=== PATIENT | female | born 1960 | race Caucasian/White ===

== ENCOUNTER 2016-10-26 19:04 | Emergency (ER) | payer MEDICARE, OTHER ==
[~2016-10-26] VITALS: Ht 152.4 cm; Wt 86.6 kg
[~2016-10-26 19:04] MED LIST: ACET325T9 PO; ALBU2.5V5 NEB; ATOR10TA60 PO; BENZ1TAB5 PO; BENZ2AMP4 IJ; BUSP7.5T PO; BUTO10SP NS; BUTORPHANOL NAS; BYSTOLIC5 MG PO; Benztropine Mesylate PO; CHLO15MO2 PO; CIPR500T94 PO; DICL100G7 TP; DIVA250T PO; DIVA500T17 PO; DIVA500T4 PO; ENOX100D SQ; Enoxaparin Sodium SQ; FLUO10CA13 PO; FLUO20CA16 PO; FLUO20CA8 PO; FLUT16SP NS; FLUT9.9S NS; FURO40TA4 PO; GUAI600T38 PO; HYDR-2678 PO; IPRA4AER IH; LIDO700A4 TP; LISI-334 PO; LISI10TA2 PO; LORA0.5T PO; MAG355OR11 PO; METH5TAB12 PO; METH5TAB4 PO; METO25TA4 PO; METO25TA9 PO; METO50TA2 PO; METR250T PO; METR500T PO; NITR0.4T SL; NYST15CR2 TP; OLAN10TA3 PO; OLAN10TA9 PO; OLAN15TA3 PO; OLAN15TA7 PO; OLAN5TAB3 PO; OLAN5TAB9 PO; OMEP40CA2 PO; OMEP40CA5 PO; PANT40TA3 PO; PANT40TA5 PO; POTA10CA PO; POTA20TA4 PO; POTA20TA82 PO; PREG50CA PO; PROC25SU21 RC; QUET50TA5 PO; SODI104S NS; TIOT18CA IH; TRAM50TA PO; TRAZ50TA15 PO; WARF4TAB7 PO; WARF5TAB PO; WARF5TAB7 PO; WARF7.5T6 PO; ZOLP10TA4 PO; ZOLP5TAB PO; ZOLP5TAB4 PO; fluoxetine; triamcinolone cream
[2016-10-26 20:04] LABS: BASO # 0.1 x10^3/uL (0.0-0.2); BASO % 1 % (0-3); EOS % 1 % (0-3); HEMATOCRIT 40.3 % (36.0-47.0); HEMOGLOBIN 13.4 g/dL (12.0-15.5); LYMPH # 2.4 x10^3/uL (1.0-4.8); LYMPH % 29 % (24-48); MEAN CORPUSCULAR HEMOGLOBIN 29 pg (25-35); MEAN CORPUSCULAR HGB CONC 33 g/dL (31-37); MEAN CORPUSCULAR VOLUME 86 fL (79-100); MONO % 9 % (0-9); NEUT % 60 % (31-73); PLATELET COUNT 162 x10^3/uL (140-400); RED CELL DISTRIBUTION WIDTH 14.8 % (11.5-14.5); WHITE BLOOD COUNT 8.2 x10^3/uL (4.0-11.0)
[2016-10-26 20:14] LABS: CALCIUM 8.3 mg/dL (8.5-10.1); CREATININE 0.9 mg/dL (0.6-1.0); GFR 64.8; INR 2.3 (0.8-1.1); POTASSIUM 3.7 mmol/L (3.5-5.1); PROTHROMBIN TIME PATIENT 23.6 SEC (11.7-14.0)
[2016-10-26 20:19] VITALS: BP 102/58
[2016-10-26 20:22] LABS: BARBITURATES NEG (NEG); BENZODIAZEPINES NEG (NEG); CANNABINOIDS NEG (NEG); COCAINE NEG (NEG); METHADONE NEG (NEG); OPIATES NEG (NEG); PHENCYCLIDINE NEG (NEG)
[2016-10-26 20:23] LABS: ETHANOL, URINE NEG (NEG)
--- NOTE | 2016-10-26 20:36 | PHYS DOC ---
Past Medical History Past Medical History: A-Fib, Anxiety, Bipolar, Hypertension, [place], Schizophrenia , Other Additional Past Medical Histor: HALLUCINATIONS, AORTIC VALVE DISORDERS, mi 1996 , kidney problems Past Surgical History: Cholecystectomy, Other Additional Past Surgical Histo: HERNIA REPAIR, AORTIC VALVE REPLACEMENT Alcohol Use: Rarely Drug Use: None Adult General Chief Complaint Chief Complaint: CHEST PAIN [facility] HPI Patient is a 56 year old female who presents with for evaluation of chest pain that started around 11:30 this morning. Pain started at rest. She has pain that is sharp, stabbing sensation about her pacemaker in her left upper chest. She states her chest wall is tender to touch. She does note also having a brief episode of left-sided numb sensation this morning; this Is currently resolved. She denies rash or discoloration. She denies cough, fever or chills, diaphoresis, dyspnea, leg pain or swelling, hemoptysis, nausea or vomiting, lightheadedness, exertional symptoms, abdominal pain, diarrhea. She denies headache, vision changes, dizziness, tingling, weakness. Review of Systems Review of Systems Constitutional: Denies fever or chills [] Eyes: Denies change in visual acuity, redness, or eye pain [] HENT: Denies nasal congestion or sore throat [] Respiratory: Denies cough or shortness of breath [] Cardiovascular: No additional information not addressed in HPI [] GI: Denies abdominal pain, nausea, vomiting, bloody stools or diarrhea [] : Denies dysuria or hematuria [] Musculoskeletal: Denies back pain or joint pain [] Integument: Denies rash or skin lesions [] Neurologic: Denies headache, focal weakness or sensory changes [] Endocrine: Denies polyuria or polydipsia [] Current Medications Current Medications Current Medications Medications (Trade) Dose Ordered Sig/Galilea Start Time Stop Time Status Last Admin Dose Admin Acetaminophen (Tylenol) 500 mg 1X ONCE 10/26/16 20:45 10/26/16 20:46 DC 10/26/16 20:40 500 MG Allergies Allergies Allergies Coded Allergies Type Severity Reaction Last Updated Verified Sulfa (Sulfonamide Antibiotics) Allergy Severe rash, tongue swelling 04/15/15 Yes Iodinated Contrast Media - IV Dye Allergy Intermediate rash 04/15/15 Yes Penicillins Allergy Intermediate Hives 04/15/15 Yes aspirin Allergy Intermediate Hives 04/15/15 Yes codeine Allergy Intermediate Hives; SEE COMMENT 06/08/15 Yes diphenhydramine HCl Allergy Intermediate rash 12/19/13 Yes latex Allergy Intermediate Rash 12/18/13 Yes Physical Exam Physical Exam Constitutional: Well developed, well nourished, no acute distress, non-toxic appearance. [] HENT: Normocephalic, atraumatic, bilateral external ears normal, oropharynx moist, no oral exudates, nose normal. [] Eyes: PERRLA, EOMI. [] Neck: Normal range of motion, supple. [] Cardiovascular:Heart rate regular rhythm [] Lungs & Thorax: Bilateral breath sounds clear to auscultation. Tenderness about anterior chest wall duplicating symptoms, worse about pacemaker in left upper chest, no discoloration or rash noted, no visual or palpable abnormality [ ] Abdomen: Bowel sounds normal, soft, no tenderness. [] Skin: Warm, dry, no erythema, no rash. [] Back: No tenderness, no CVA tenderness. [] Extremities: ROM intact, no edema. [] Neurologic: Alert and oriented X 3, normal motor function, normal sensory function, no focal deficits noted, cranial nerves II through XII intact. [] Psychologic: Affect normal, judgement normal, mood normal. [] Current Patient Data Vital Signs Vital Signs Date Time Temp Pulse Resp B/P Pulse Ox O2 Delivery O2 Flow Rate FiO2 10/26/16 20:19 68 16 102/58 96 Room Air 10/26/16 19:30 98.5 98.5 Lab Values Laboratory Tests Test 10/26/16 19:16 10/26/16 20:10 White Blood Count 8.2x10^3/uL (4.0-11.0) Red Blood Count 4.70x10^6/uL (3.50-5.40) Hemoglobin 13.4g/dL (12.0-15.5) Hematocrit 40.3% (36.0-47.0) Mean Corpuscular Volume 86fL (79-100) Mean Corpuscular Hemoglobin 29pg (25-35) Mean Corpuscular Hemoglobin Concent 33g/dL (31-37) Red Cell Distribution Width 14.8% (11.5-14.5) H Platelet Count 162x10^3/uL (140-400) Neutrophils (%) (Auto) 60% (31-73) Lymphocytes (%) (Auto) 29% (24-48) Monocytes (%) (Auto) 9% (0-9) Eosinophils (%) (Auto) 1% (0-3) Basophils (%) (Auto) 1% (0-3) Neutrophils # (Auto) 4.9x10^3uL (1.8-7.7) Lymphocytes # (Auto) 2.4x10^3/uL (1.0-4.8) Monocytes # (Auto) 0.7x10^3/uL (0.0-1.1) Eosinophils # (Auto) 0.1x10^3/uL (0.0-0.7) Basophils # (Auto) 0.1x10^3/uL (0.0-0.2) Prothrombin Time 23.6SEC (11.7-14.0) H Prothrombin Time INR 2.3 (0.8-1.1) H Sodium Level 143mmol/L (136-145) Potassium Level 3.7mmol/L (3.5-5.1) Chloride Level 103mmol/L (98-107) Carbon Dioxide Level 34mmol/L (21-32) H Anion Gap 6 (6-14) Blood Urea Nitrogen 16mg/dL (7-20) Creatinine 0.9mg/dL (0.6-1.0) Estimated GFR (Cockcroft-Gault) 64.8 Glucose Level 109mg/dL (70-99) H Calcium Level 8.3mg/dL (8.5-10.1) L Troponin I Quantitative < 0.017ng/mL (0.000-0.055) NB-Ebm-[id number]-Type Natriuretic Peptide 149pg/mL (0-124) H Urine Opiates Screen Neg (NEG) Urine Methadone Screen Neg (NEG) Urine Barbiturates Neg (NEG) Urine Phencyclidine Screen Neg (NEG) Urine Amphetamine/Methamphetamine Neg (NEG) Urine Benzodiazepines Screen Neg (NEG) Urine Cocaine Screen Neg (NEG) Urine Cannabinoids Screen Neg (NEG) Urine Ethyl Alcohol Neg (NEG) Laboratory Tests 10/26/16 19:16 Laboratory Tests 10/26/16 19:16 EKG EKG EKG as interpreted by me as normal sinus rhythm, rate 87, no ST-T changes compared to prior, no ectopy Radiology/Procedures Radiology/Procedures Chest xray as interpreted by me with no acute cardiopulmonary disease process Course & Med Decision Making Course & Med Decision Making Pertinent Labs and Imaging studies reviewed. (See chart for details) Workup is unremarkable. She continues to have no further neurologic symptoms. Encouraged her to follow-up with her primary care doctor and charity fundraiser. Return precautions given. She and understand and agree with plan. Dragon Disclaimer Dragon Disclaimer This electronic medical record was generated, in whole or in part, using a voice recognition dictation system. Departure Departure Impression: Primary Impression: Chest pain Disposition: HOME, SELF-CARE Condition: STABLE Referrals: RUBIO CASTELLANOS (PCP) Patient Instructions: Chest Pain (Nonspecific), [id number] Additional Instructions: Take tylenol as needed for pain. Follow up with your primary care doctor and charity fundraiser. Return for any concerns. Problem Qualifiers Primary Impression: Chest pain Chest pain type: other chest pain Qualified Code: R07.89 - Other chest pain Tyree PITTS MD Oct 26, 2016 20:36
[2016-10-26] MEDS ORDERED: ACETAMINOPHEN 500 MG TABLET PO ONE (20:45)
--- NOTE | 2016-10-27 06:41 | EKG ---
[facility] [address] [place] [address] Test Date: 2016-10-26 Test Time: 19:12:43 Pat Name: RHETT HERNANDEZ Department: Room: Gender: F Foundation Relations Manager: : 1960 Requested By: Tyree PITTS Order Number: [id number] Reading MD: Measurements Intervals [place] Rate: 87 P: MD: QRS: 10 QRSD: 78 T: 86 QT: 372 QTc: 454 Interpretive Statements IRREGULAR RHYTHM, NO P-WAVE FOUND ST & T ABNORMALITY, CONSIDER ANTERIOR ISCHEMIA OR LEFT VENTRICULAR STRAIN T ABNORMALITY IN LATERAL LEADS ABNORMAL ECG RI6.01 No previous ECG available for comparison
--- NOTE | 2016-10-27 08:19 | RAD ---
Chest, 2 views, 10/26/2016: History: Chest pain, asthma Comparison is made to a study from 08/10/2016. There has been a previous median sternotomy. A left-sided transvenous pacemaker remains in place with 2 leads extending into the right heart. The heart is mildly enlarged. There is mild tortuosity of the thoracic aorta. The pulmonary vascularity is normal. Granulomatous calcifications are present in the left chest. No pulmonary infiltrates are seen. There is no evidence of pleural fluid. Scattered spurs are present in the spine. Two lower thoracic vertebral compression fractures are unchanged since 08/17/2014. IMPRESSION: 1. Mild cardiomegaly. 2. No acute abnormality is detected.
== END 2016-10-26 20:54 | disposition home or self-care (01) ==
LOC: ER 19:06
DX: R07.89 Other chest pain (principal); I10 Essential (primary) hypertension; I48.91 Unspecified atrial fibrillation; Z88.0 Allergy status to penicillin; Z88.8 Allergy status to other drugs, medicaments and biological substances; Z91.041 Radiographic dye allergy status; Z91.040 Latex allergy status; Z88.2 Allergy status to sulfonamides; Z88.5 Allergy status to narcotic agent
CPT/HCPCS: 36415; 71020; 80048; 83880; 84484; 85027; 85610; 93005; 99285; G0481

== ENCOUNTER 2017-02-20 17:28 | Inpatient (IN) | payer MEDICARE, OTHER ==
[~2017-02-20] VITALS: Ht 152.4 cm; Wt 94.1 kg
[~2017-02-20 17:28] MED LIST changes: +DICL100G18 TP; -DICL100G7 TP; -GUAI600T38 PO; +GUAI600T47 PO; -POTA10CA PO; +POTASSIUM CHLO10 MEQ PO; +WARF-78 PO; -WARF5TAB PO; -ZOLP5TAB4 PO; +ZOLP5TAB5 PO
--- NOTE | 2017-02-20 18:10 | PHYS DOC ---
Past Medical History Past Medical History: A-Fib, Anxiety, Bipolar, Hypertension, [place], Schizophrenia , Other Additional Past Medical Histor: HALLUCINATIONS, AORTIC VALVE DISORDERS, mi 1996 , kidney problems Past Surgical History: Cholecystectomy, Other Additional Past Surgical Histo: HERNIA REPAIR, AORTIC VALVE REPLACEMENT Alcohol Use: Rarely Drug Use: None Adult General Chief Complaint Chief Complaint: CHEST PAIN HPI HPI Patient is a 56 year old female who presents with for intermittent chest pain that started yesterday around 6 PM. States she has episodes lasting approximately 10 minutes, occurring frequently, has been constant over the last hour but was prior intermittent. It is sharp, left-sided, radiates to left arm. He has slight bilateral acute lower extremity edema over the past few days. Denies dyspnea, lightheadedness, nausea or vomiting, fever or chills, palpitations, diaphoresis, orthopnea, back pain, leg pain, hemoptysis, cough. Denies ICD fire. Review of Systems Review of Systems Constitutional: Denies fever or chills [] Eyes: Denies change in visual acuity, redness, or eye pain [] HENT: Denies nasal congestion or sore throat [] Respiratory: Denies cough or shortness of breath [] Cardiovascular: No additional information not addressed in HPI [] GI: Denies abdominal pain, nausea, vomiting, bloody stools or diarrhea [] : Denies dysuria or hematuria [] Musculoskeletal: Denies back pain or joint pain [] Integument: Denies rash or skin lesions [] Neurologic: Denies headache, focal weakness or sensory changes [] Endocrine: Denies polyuria or polydipsia [] Current Medications Current Medications Current Medications Medications (Trade) Dose Ordered Sig/Galilea Start Time Stop Time Status Last Admin Dose Admin Fentanyl Citrate (Fentanyl 2ml Vial) 50 mcg PRN Q15MIN PRN 02/20/17 18:15 02/20/17 21:00 02/20/17 18:41 50 MCG Allergies Allergies Allergies Coded Allergies Type Severity Reaction Last Updated Verified Sulfa (Sulfonamide Antibiotics) Allergy Severe rash, tongue swelling 04/15/15 Yes Iodinated Contrast- Oral and IV Dye Allergy Intermediate rash 04/15/15 Yes Penicillins Allergy Intermediate Hives 04/15/15 Yes aspirin Allergy Intermediate Hives 04/15/15 Yes codeine Allergy Intermediate Hives; SEE COMMENT 06/08/15 Yes diphenhydramine HCl Allergy Intermediate rash 12/19/13 Yes latex Allergy Intermediate Rash 12/18/13 Yes Physical Exam Physical Exam Constitutional: Well developed, well nourished, no acute distress, non-toxic appearance. [] HENT: Normocephalic, atraumatic, bilateral external ears normal, oropharynx moist, nose normal. [] Eyes: PERRLA, EOMI. [] Neck: Normal range of motion, supple. [] Cardiovascular:Heart rate regular rhythm [] Lungs & Thorax: Bilateral breath sounds clear to auscultation. No chest wall tenderness [] Abdomen: Bowel sounds normal, soft, no tenderness. [] Skin: Warm, dry, no erythema, no rash. [] Back: No tenderness, no CVA tenderness. [] Extremities: No tenderness, ROM intact, no edema. [] Neurologic: Alert and oriented X 3, normal motor function, normal sensory function, no focal deficits noted. [] Psychologic: Affect normal, judgement normal, mood normal. [] Current Patient Data Vital Signs Vital Signs Date Time Temp Pulse Resp B/P (MAP) Pulse Ox O2 Delivery O2 Flow Rate FiO2 02/20/17 19:00 60 19 158/75 (102) 95 Nasal Cannula 02/20/17 17:46 98.4 98.4 Lab Values Laboratory Tests Test 02/20/17 17:50 White Blood Count 7.9 x10^3/uL (4.0-11.0) Red Blood Count 5.07 x10^6/uL (3.50-5.40) Hemoglobin 14.6 g/dL (12.0-15.5) Hematocrit 43.2 % (36.0-47.0) Mean Corpuscular Volume 85 fL (79-100) Mean Corpuscular Hemoglobin 29 pg (25-35) Mean Corpuscular Hemoglobin Concent 34 g/dL (31-37) Red Cell Distribution Width 14.0 % (11.5-14.5) Platelet Count 179 x10^3/uL (140-400) Neutrophils (%) (Auto) 63 % (31-73) Lymphocytes (%) (Auto) 27 % (24-48) Monocytes (%) (Auto) 8 % (0-9) Eosinophils (%) (Auto) 2 % (0-3) Basophils (%) (Auto) 1 % (0-3) Neutrophils # (Auto) 4.9 x10^3uL (1.8-7.7) Lymphocytes # (Auto) 2.1 x10^3/uL (1.0-4.8) Monocytes # (Auto) 0.7 x10^3/uL (0.0-1.1) Eosinophils # (Auto) 0.1 x10^3/uL (0.0-0.7) Basophils # (Auto) 0.0 x10^3/uL (0.0-0.2) Prothrombin Time 15.8 SEC (11.7-14.0) H Prothrombin Time INR 1.3 (0.8-1.1) H PTT 28 SEC (24-38) Sodium Level 142 mmol/L (136-145) Potassium Level 3.8 mmol/L (3.5-5.1) Chloride Level 102 mmol/L (98-107) Carbon Dioxide Level 33 mmol/L (21-32) H Anion Gap 7 (6-14) Blood Urea Nitrogen 19 mg/dL (7-20) Creatinine 0.8 mg/dL (0.6-1.0) Estimated GFR (Cockcroft-Gault) 74.2 Glucose Level 104 mg/dL (70-99) H Calcium Level 9.2 mg/dL (8.5-10.1) Magnesium Level 1.8 mg/dL (1.8-2.4) Troponin I Quantitative < 0.017 ng/mL (0.000-0.055) DL-Xlj-[id number]-Type Natriuretic Peptide 591 pg/mL (0-124) H Laboratory Tests 02/20/17 17:50 Laboratory Tests 02/20/17 17:50 EKG EKG EKG as interpreted by me as normal sinus rhythm, rate 66, no ST-T changes, normal intervals, no ectopy Radiology/Procedures Radiology/Procedures Chest xray as interpreted by me with no acute cardiopulmonary disease process Course & Med Decision Making Course & Med Decision Making Pertinent Labs and Imaging studies reviewed. (See chart for details) Workup is largely unremarkable other than subtherapeutic INR. Discussed case with Dr. Hall, on-call for Dr. Castellanos, who will admit to Dr. Hudson. Cardiology consult placed. Augustin Disclaimer Dragon Disclaimer This electronic medical record was generated, in whole or in part, using a voice recognition dictation system. Departure Departure Impression: Primary Impression: Chest pain Additional Impression: Subtherapeutic international normalized ratio (INR) Disposition: 09 ADMITTED INPATIENT Condition: STABLE Referrals: RUBIO CASTELLANOS (PCP) Problem Qualifiers Primary Impression: Chest pain Chest pain type: unspecified Qualified Codes: R07.9 - Chest pain, unspecified Tyree PITTS MD Feb 20, 2017 18:10
[2017-02-20 18:13] LABS: BASO % 1 % (0-3); EOS % 2 % (0-3); HEMATOCRIT 43.2 % (36.0-47.0); HEMOGLOBIN 14.6 g/dL (12.0-15.5); LYMPH # 2.1 x10^3/uL (1.0-4.8); LYMPH % 27 % (24-48); MEAN CORPUSCULAR HEMOGLOBIN 29 pg (25-35); MEAN CORPUSCULAR HGB CONC 34 g/dL (31-37); MEAN CORPUSCULAR VOLUME 85 fL (79-100); MONO % 8 % (0-9); NEUT % 63 % (31-73); PLATELET COUNT 179 x10^3/uL (140-400); RED BLOOD COUNT 5.07 x10^6/uL (3.50-5.40); WHITE BLOOD COUNT 7.9 x10^3/uL (4.0-11.0)
[2017-02-20] MEDS ORDERED: fentaNYL PF VIAL 100 MCG/2 ML VIAL IV PRN ×2 (18:15→19:45)
[2017-02-20 18:24] LABS: INR 1.3 (0.8-1.1); PROTHROMBIN TIME PATIENT 15.8 SEC (11.7-14.0)
[2017-02-20 18:26] LABS: CALCIUM 9.2 mg/dL (8.5-10.1); CREATININE 0.8 mg/dL (0.6-1.0); GFR 74.2; POTASSIUM 3.8 mmol/L (3.5-5.1)
[2017-02-20 18:27] LABS: MAGNESIUM 1.8 mg/dL (1.8-2.4)
[2017-02-20] MEDS ORDERED: ACETAMINOPHEN 325 MG TABLET. PO PRN (19:45)
[2017-02-20] MEDS ORDERED: NITROGLYCERIN SUBLINGUAL 0.4 MG BOTTLE OF 25. SL PRN ×2 (19:45→22:45)
[2017-02-20] MEDS ORDERED: ONDANSETRON PF 4 MG/2 ML VIAL. IV PRN (19:45)
[2017-02-20 20:59] VITALS: BP 144/67
[2017-02-20] MEDS ORDERED: PREG50CA PO (22:33)
[2017-02-20] MEDS ORDERED: LISI-334 PO (22:33)
[2017-02-20] MEDS ORDERED: LURA40TA PO (22:33)
[2017-02-20] MEDS ORDERED: OLAN15TA3 PO (22:33)
[2017-02-20] MEDS ORDERED: FLUO20CA8 PO (22:33)
[2017-02-20] MEDS ORDERED: WARF6TAB49 PO (22:33)
[2017-02-20] MEDS ORDERED: WARF5TAB7 PO (22:33)
[2017-02-20] MEDS ORDERED: LORA10TA3 PO (22:33)
[2017-02-20] MEDS ORDERED: MONT10TA6 PO (22:33)
[2017-02-20] MEDS ORDERED: METO25TA4 PO (22:33)
[2017-02-20] MEDS ORDERED: OMEP40CA5 PO (22:33)
[2017-02-20] MEDS ORDERED: METH5TAB12 PO (22:33)
[2017-02-20] MEDS ORDERED: PROCHLORPERAZINE 25 MG SUPP.RECT. RC PRN (22:45)
[2017-02-20] MEDS ORDERED: ALBUTEROL SULFATE 2.5 MG/3 ML NEBU. NEB PRN (22:45)
[2017-02-20] MEDS ORDERED: BENZTROPINE MESYLATE 1 MG TABLET. PO SCH (23:00)
[2017-02-20] MEDS ORDERED: CETIRIZINE HCL 10 MG TABLET. PO SCH (23:00)
[2017-02-20] MEDS: DICLOFENAC SODIUM 1% TOPICAL GEL 100GM TUBE. TP SCH (23:00)
[2017-02-20] MEDS ORDERED: ATORVASTATIN CALCIUM 10 MG TABLET. PO SCH (23:00)
[2017-02-20] MEDS: FLUTICASONE 50MCG/NASAL SPRAY 16GM BOTTLE. NS SCH (23:00)
[2017-02-20] MEDS ORDERED: MAG HYDROX/ALUMINUM HYD/SIMETH 30 ML ORAL.SUSP PO PRN (23:00)
[2017-02-20] MEDS ORDERED: LURASIDONE 40 MG TABLET. PO SCH (23:00)
[2017-02-20] MEDS ORDERED: PREGABALIN 50 MG CAPSULE PO SCH (23:00)
[2017-02-20] MEDS ORDERED: DICLOFENAC SODIUM 1% TOPICAL GEL 100GM TUBE. TP SCH (23:00)
[2017-02-20] MEDS ORDERED: METOPROLOL TART IMMED RELEASE 25 MG TABLET. PO SCH (23:00)
[2017-02-20] MEDS ORDERED: traMADol 50 MG TABLET PO SCH (23:00)
[2017-02-20] MEDS ORDERED: METHYLPHENIDATE HCL 5 MG TABLET PO SCH (23:00)
[2017-02-20 23:12] VITALS: BP 139/70
[2017-02-20] MEDS: CETIRIZINE HCL 10 MG TABLET. PO SCH (23:17)
[2017-02-20] MEDS: QUEtiapine 25 MG TABLET. PO SCH (23:17)
[2017-02-20] MEDS: POTASSIUM CHLORIDE 20 MEQ TABLET.ER. PO SCH (23:17)
[2017-02-20] MEDS: BENZTROPINE MESYLATE 1 MG TABLET. PO SCH (23:18)
[2017-02-20] MEDS: DIVALPROEX EXTENDED RELEASE 500 MG TAB.ER.24H. PO SCH (23:18)
[2017-02-20] MEDS: LURASIDONE 40 MG TABLET. PO SCH (23:19)
[2017-02-20] MEDS: traMADol 50 MG TABLET PO SCH (23:19)
[2017-02-20] MEDS: OLANZapine 5 MG TABLET PO SCH (23:20)
[2017-02-20] MEDS: ATORVASTATIN CALCIUM 10 MG TABLET. PO SCH (23:20)
[2017-02-20] MEDS: METHYLPHENIDATE HCL 5 MG TABLET PO SCH (23:20)
[2017-02-20] MEDS: METOPROLOL TART IMMED RELEASE 25 MG TABLET. PO SCH (23:21)
[2017-02-20] MEDS: PREGABALIN 50 MG CAPSULE PO SCH (23:24)
[2017-02-21 03:30] VITALS: BP 123/60
--- NOTE | 2017-02-21 06:42 | ACF ---
Admission Forms Criteria CARDIOLOGY GRG Clinical Indications for Admission to Inpatient Care ( Place 'X' for any and all applicable criteria): Hospital admission is needed for appropriate care of the patient because of ANY ONE of the following (1): [ ] I. Hemodynamic instability as indicated by ALL of the following (1)(2)(3) (4)(5) [ ]a) Vital signs or other findings not as expected for chronic patient condition or baseline [ ]b) Instability indicated by ANY ONE of the following: [ ]i) Hypotension [ ]ii) Symptomatic Tachycardia unresponsive to treatment ( e.g., analgesia, fluids, sedation as indicated) [ ]iii) Inadequate perfusion indicated by ANY ONE of the following: [ ] 1) Lactic acidosis (> 2 mmol/L) [ ] 2) New abnormal capillary refill (> 3 seconds) [ ] 3) Reduced urine output [ ] 4) New altered mental status [ ]iv) Orthostatic vital sign changes unresponsive to treatment (e.g., fluids) [ ]v) IV inotropic or vasopressor medication required to maintain adequate blood pressure or perfusion [ ] II. Severe heart failure as indicated by ANY ONE of the following(17)(18) [ ]a) Respiratory distress [ ]b) Hypotension [ ]c) Anasarca (refractory to outpatient therapy) [ ]d) Cardiac arrhythmias of immediate concern [ ]e) Myocardial ischemia [ ] III. Cardiac arrhythmias or findings of immediate concern indicated by ANY ONE of the following (19)(20): [ ] a) Heart rhythms that are inherently dangerous or unstable indicated by ANY ONE of the following (21)(22)(23): [ ] i) Resuscitated ventricular fibrillation or cardiac arrest [ ] ii) Ventricular escape rhythm [ ] iii) Sustained ventricular tachycardia (30 seconds or more of ventricular rhythm at greater than 100 beats per minute) [ ] iv) Nonsustained ventricular tachycardia and ANY ONE of the following: [ ] 1) Suspected cardiac ischemia as cause or consequence of ventricular tachycardia [ ] 2) In setting of acute myocarditis [ ] b) Unstable cardiac conduction defects indicated by ANY ONE of the following(23)(24)(25) [ ] i) Type II second-degree atrioventricular block [ ]ii) Third-degree atrioventricular block [ ]iii) New-onset left bundle branch block with suspected myocardial ischemia [ ]c) Any heart rhythm and ANY ONE of the following (21)(22)(26)(27) (28) [ ] i) Continuous long-term ECG monitoring needed (e.g., initiation of drug requiring monitoring for more than 24 hours) [ ] ii) Patient has automatic implanted cardioverter defibrillator that is repeatedly firing, malfunctioning, or in need of immediate adjustment of settings beyond the scope of ambulatory or observation care [ ]d) Heart rhythms of concern due to ANY ONE of the following: [ ] i) Hypotension [ ] ii) Respiratory distress [ ] iii) Association with other significant symptoms (e.g., bradycardia with syncope or ongoing dizziness, supraventricular tachycardia with chest pain (14)(15)(17) [ ] IV. Monitoring for cardiac contusion beyond the scope of observation care needed [A](30)(31)(32) [ ] V. Surgical or device complication (e.g., valve replacement complication , pacemaker dysfunction) (35)(41)(44)(45)(46) [ ] . Inpatient palliative care needed. [B](49) Also use Inpatient Palliative Care Criteria [ ] VII. Nonbacterial thrombotic (marantic) endocarditis (36)(43)(47)(48) [X] VIII. Cardiology condition, symptom, or finding for which emergency and observation care has failed or are not considered appropriate. [ ] IX. Acute valvular disease requiring inpatient as indicated by ANY ONE of the following (41) [ ]a) Acute valvular regurgitation (42) [ ]b) Noninfectious valvulitis (43) [ ]c) Obstructive valve thrombosis [ ]d) Paravalvular leak [ ]e) Other significant valvular disorder remaining after emergency or observation level of care (as appropriate) [ ]X. Pericardial disease requiring inpatient treatment as indicated by ANY ONE of the following (33)(34)(35)(36)(37) [ ]a) Suspected tamponade (38)(39)(40) [ ]b) Hemopericardium [ ]c) Other significant pericardial disorder remaining after emergency or observation level of care (as appropriate) [ ] XI. Cardiac ischemia beyond scope of emergency and observation care. [ ] XII. Hypertension requiring inpatient treatment as indicated by ANY ONE of the following (6)(7)(8) [ ]a) SBP greater than 220 mm Hg or DBP greater than 120 mmHg despite treatment [ ]b) SBP greater than 140 mm Hg or DBP greater than 100 mm Hg with evidence of acute end organ damage as indicated by ANY ONE of the following [ ] i) Encephalopathy [ ] ii) Acute renal failure as indicated by new onset of ANY ONE of the following (9)(10)(11)(12)(13) [ ]1) 3-fold rise in serum creatinine from baseline [ ]2) Serum creatinine greater than 4 mg/dL ( 354 micromoles/L) with acute rise greater than 0.5 mg/dL (44.2 micromoles/L) [ ]3) Reduction of more than 75% in estimated glomerular filtration rate from baseline [ ]4) Estimated glomerular filtration rate less than 35 mL/min/1.73m2 (0.59 mL/sec/1.73m2) in child up to 18 years of age [ ]5) Cessation of urine output indicated by ALL of the following [ ]A. Adequate volume status [ ]B. Inadequate urine output as indicated by ANY ONE of the following [ ]a. Urine output less than 0.3 mL/kg/hr for 24 hours [ ]b. Anuria (urine output less than 0.1 mL/kg/hr) for 12 hours [ ] iii) Aortic dissection [ ] iv) Myocardial Ischemia [ ] v) Left ventricular heart failure [ ]vi) Retinal Hemorrhage [ ]vii) Other significant finding [ ]c) Hypertension in child requiring inpatient treatment as indicated by ALL of the following(14)(15)(16) [ ] i) Outpatient treatment not effective, not available, or not appropriate [ ]ii) SBP or DBP greater than 95th percentile for age [ ]iii) Evidence of acute end organ damage as indicated by ANY ONE of the following [ ]1) Altered mental status [ ]2) Acute renal failure as indicated by new onset of ANY ONE of the following(9)(10)(11)(12)(13) [ ]A. 3-fold rise in serum creatinine from baseline [ ]B. Serum creatinine greater than 4 mg/dL (354 micromoles/L) with acute rise greater than 0.5 mg/dL (44.2 micromoles/L) [ ]C. Reduction of more than 75% in estimated glomerular filtration rate from baseline [ ]D. Estimated glomerular filtration rate less than 35 mL/min/1.73m2 (0.59 mL/sec/1.73m2) in child up to 18 years of age [ ]E. Cessation of urine output indicated by ALL of the following [ ]a. Adequate volume status [ ]b. Inadequate urine output as indicated by ANY ONE of the following [ ]i) Urine output less than 0.3 mL/kg/hr for 24 hours [ ]ii) Anuria ( urine output less than 0.1 mL/kg/hr) for 12 hours [ ]3) Severe headache [ ]4) Visual disturbance [ ]5) Retinal hemorrhage [ ]6) Other significant finding [ ]XIII. Complications of transplanted heart indicated by ANY ONE of the following(61): [ ]a) Acute graft rejection requiring inpatient management (eg, intravenous immunosuppression)(62)(63) [ ]b) Acute graft heart failure indicated by ANY ONE of the following(64): [ ]i) Hemodynamic instability [ ]ii) Cardiac arrhythmias of immediate concern [ ]iii) Pulmonary edema that is very severe (eg, mechanical ventilation needed, imminent or likely, need for 100% oxygen to keep oxygen saturation above 90%) [ ]iv) Pulmonary edema that is persistent as indicated by ALL of the following: [ ]1) New need for oxygen therapy to keep oxygen saturation above 90% (or increased FiO2 need from baseline) [ ]2) Has not improved sufficiently with emergency department or observation care IV diuretics or other heart failure treatments[E] [ ]v) Altered mental status that is severe or persistent [ ]vi) Increased creatinine (new on laboratory test) with reduction of more than 50% in estimated glomerular filtration rate from baseline [ ]vii) Progressively (ongoing) rising creatinine (known from past laboratory test) with reduction of more than 25% in estimated glomerular filtration rate from baseline [ ]viii) Acute renal failure [ ]ix) Acute peripheral ischemia (eg, examination shows pulseless, cool, mottled, or cyanotic extremity) [ ]x) Pulmonary artery catheter monitoring needed [ ]xi) Other sign or symptom of heart failure requiring inpatient treatment (ie, too severe or not responsive to outpatient and observation care treatment) [ ]c) Infection requiring inpatient management (eg, Hemodynamic instability, need for intravenous antimicrobial treatment)(66)(67)(68)(69)(70) [ ]d) Cardiac allograft vasculopathy requiring inpatient management ( eg evidence of cardiac ischemia)(71) [ ]e) Other complication of transplanted heart (eg, stroke, severe pulmonary hypertension, severe valvular dysfunction) requiring inpatient management(72) The [facility] content created by [facility] has been revised. The portions of the content which have been revised are identified through the use of italic text or in bold, and [facility] has neither reviewed nor approved the modified material. All other unmodified content is copyright [facility]. Please see references footnoted in the original [facility] edition 2016 Admission Criteria Met?: Yes JIA COSBY Feb 21, 2017 06:42
[2017-02-21 07:00] VITALS: BP 153/86
[2017-02-21 07:06] LABS: BASO % 0 % (0-3); EOS % 2 % (0-3); HEMATOCRIT 39.9 % (36.0-47.0); HEMOGLOBIN 13.1 g/dL (12.0-15.5); LYMPH # 2.1 x10^3/uL (1.0-4.8); LYMPH % 34 % (24-48); MEAN CORPUSCULAR HEMOGLOBIN 29 pg (25-35); MEAN CORPUSCULAR HGB CONC 33 g/dL (31-37); MEAN CORPUSCULAR VOLUME 87 fL (79-100); MONO % 9 % (0-9); NEUT % 55 % (31-73); PLATELET COUNT 142 x10^3/uL (140-400); RED CELL DISTRIBUTION WIDTH 13.9 % (11.5-14.5)
[2017-02-21 07:28] LABS: ALBUMIN/GLOBULIN RATIO 0.8 (1.0-1.7); CALCIUM 8.8 mg/dL (8.5-10.1); CREATININE 0.7 mg/dL (0.6-1.0); GFR 86.6; POTASSIUM 3.9 mmol/L (3.5-5.1); TOTAL BILIRUBIN 0.2 mg/dL (0.2-1.0); TOTAL PROTEIN 6.6 g/dL (6.4-8.2)
--- NOTE | 2017-02-21 08:23 | RAD ---
Indication chest pain. A single view of the chest was obtained. Comparison is made to a study 10/26/2016. Mild cardiomegaly is seen similar to the previous exam. There is no congestive heart failure or focal infiltrate. There has not been a significant change when compared to the previous exam. Postoperative changes and a bipolar cardiac pacing device are noted. IMPRESSION: No acute finding. No significant change
[2017-02-21] MEDS: MONTELUKAST SODIUM 10 MG TABLET. PO SCH (08:27)
[2017-02-21] MEDS: METOPROLOL TART IMMED RELEASE 25 MG TABLET. PO SCH ×2 (08:27→20:32)
[2017-02-21] MEDS: DIVALPROEX EXTENDED RELEASE 500 MG TAB.ER.24H. PO SCH ×2 (08:27→20:32)
[2017-02-21] MEDS: PANTOPRAZOLE 40 MG TABLET.DR. PO SCH (08:27)
[2017-02-21] MEDS: BENZTROPINE MESYLATE 1 MG TABLET. PO SCH ×2 (08:28→20:30)
[2017-02-21] MEDS: FUROSEMIDE 40 MG TABLET. PO SCH (08:28)
[2017-02-21] MEDS: FLUoxetine HCL 20 MG CAPSULE PO SCH (08:28)
[2017-02-21] MEDS: POTASSIUM CHLORIDE 20 MEQ TABLET.ER. PO SCH ×2 (08:28→20:33)
[2017-02-21] MEDS: LISINOPRIL 20 MG TABLET PO SCH (08:28)
[2017-02-21] MEDS: DICLOFENAC SODIUM 1% TOPICAL GEL 100GM TUBE. TP SCH ×2 (08:29→20:47)
[2017-02-21] MEDS: PREGABALIN 50 MG CAPSULE PO SCH ×2 (08:29→20:31)
[2017-02-21] MEDS: traMADol 50 MG TABLET PO SCH (08:34)
[2017-02-21] MEDS: FLUTICASONE 50MCG/NASAL SPRAY 16GM BOTTLE. NS SCH ×2 (08:35→20:46)
[2017-02-21] MEDS ORDERED: DIVALPROEX EXTENDED RELEASE 500 MG TAB.ER.24H. PO SCH (09:00)
[2017-02-21] MEDS ORDERED: HYDR-971 PO (09:06)
[2017-02-21 11:00] VITALS: BP 134/70
[2017-02-21] MEDS ORDERED: HYDROcodone/APAP 5/325MG 1 TAB TABLET PO SCH (12:00)
--- NOTE | 2017-02-21 12:30 | EKG ---
[facility] [address] [place] [id number] Test Date: 2017-02-20 Test Time: 17:46:44 Pat Name: RHETT HERNANDEZ Department: Room: 248 1 Gender: F Epic Director: : 1960 Requested By: Tyree PITTS Order Number: [id number] Reading MD: Keya Huerta Measurements Intervals Deane Rate: 66 P: -56 MA: 124 QRS: 19 QRSD: 84 T: 59 QT: 404 QTc: 425 Interpretive Statements SINUS RHYTHM T ABNORMALITY IN ANTEROSEPTAL LEADS ABNORMAL ECG Electronically Signed On 02-21-2017 21:21:30 CDT by Keya Huerta
[2017-02-21 15:00] VITALS: BP 126/72
--- NOTE | 2017-02-21 15:46 | PDOC2 ---
CONSULT Date of Consult Date of Consult DATE: 02/21/17 TIME: 15:31 Reason for Consult Reason for Consult: chest pain Referring Physician Referring Physician: Dr. Delarosa Identification/Chief Complaint Chief Complaint Chest pain Source Source: Patient History of Present Illness Reason for Visit: The patient is a 56-year-old female with a history of a mechanical aortic valve replacement and coronary artery disease status post stent to the right coronary artery who was admitted through the emergency room for episodes of chest discomfort. The patient's chest pain has now largely resolved. She reports occasional episodes of pain over the past 2-3 days not associated with dizziness or lightheadedness. Troponins have been negative 3. Her EKG shows no acute changes. Catheterization in July 2015 showed a 30% LAD lesion and a widely patent stent in the right coronary artery. Lexiscan nuclear stress test from July of last year showed no evidence of ischemia or infarction and a normal ejection fraction. Past Medical History Cardiovascular: CAD, HTN, Hyperlipidemia, Aortic stenosis, Other Pulmonary: Asthma, COPD CENTRAL NERVOUS SYSTEM: Other GI: GERD Heme/Onc: No pertinent hx Hepatobiliary: No pertinent hx Psych: Anxiety, Bipolar, Depression, Schizophrenia, Other Musculoskeletal: Osteoarthritis Rheumatologic: No pertinent hx Infectious disease: No pertinent hx Renal/: No pertinent hx Endocrine: No pertinent hx Past Surgical History Past Surgical History: Cholecystectomy, Hysterectomy, Other (AVR, coronary stent) Family History Family History: Cancer, Heart Disease, Hypertension Social History No ALCOHOL: none Drugs: None Lives: with Family Current Problem List Problem List Problems Medical Problems: (1) Chest pain Status: Acute (2) Subtherapeutic international normalized ratio (INR) Status: Acute Current Medications Current Medications Current Medications Fentanyl Citrate (Fentanyl 2ml Vial) 50 mcg PRN Q15MIN PRN IV PAIN GREATER THAN 3/10 Last administered on 02/20/17t 18:41; Start 02/20/17 at 18:15; Stop at 21:00; Status DC Ondansetron HCl (Zofran) 4 mg PRN Q8HRS PRN IV NAUSEA/VOMITING; Start 02/20/17 at 19:45; Stop 02/21/17 at 19:44 Fentanyl Citrate (Fentanyl 2ml Vial) 50 mcg PRN Q2HR PRN IV PAIN; Start at 19:45; Stop 02/21/17 at 19:44 Acetaminophen (Tylenol) 650 mg PRN Q4HRS PRN PO FEVER Last administered on 02/20 20:41; Start 02/20/17 at 19:45; Stop 02/21/17 at 19:44 Nitroglycerin (Nitrostat) 0.4 mg PRN Q5MIN PRN SL CHEST PAIN; Start 02/20/17 at 19:45; Stop 02/20/17 at 23:06; Status DC Albuterol Sulfate (Ventolin Neb Soln) 2.5 mg PRN Q4HRS PRN NEB SHORTNESS OF BREATH; Start 02/20/17 at 22:45 Atorvastatin Calcium (Lipitor) 10 mg QHS PO ; Start 02/20/17 at 23:00; Status Cancel Benztropine Mesylate (Cogentin) 1 mg BID PO ; Start 02/20/17 at 23:00; Status Cancel Diclofenac Sodium (Voltaren) 1 janeen BID TP ; Start 02/20/17 at 23:00 Divalproex Sodium (Depakote Er) 500 mg BID PO ; Start 02/21/17 at 09:00; Stop at 09:00; Status DC Fluoxetine HCl (PROzac) 20 mg DAILY PO Last administered on 02/21/17 08:28; Start 02/21/17 at 09:00 Fluticasone Propionate (Flonase) 2 spray BID NS Last administered on 02/21/17 08:35; Start 02/20/17 at 23:00 Furosemide (Lasix) 40 mg DAILY PO Last administered on 02/21/17 08:28; Start 02/21/17 at 09:00 Lisinopril (Prinivil) 20 mg DAILY PO Last administered on 02/21/17 08:28; Start 02/21/17 at 09:00 Lurasidone HCl (Latuda) 20 mg QHS PO ; Start 02/20/17 at 23:00; Status Cancel Methylphenidate HCl (Ritalin) 5 mg QHS PO ; Start 02/20/17 at 23:00; Status Cancel Metoprolol Tartrate (Lopressor) 25 mg BID PO ; Start 02/20/17 at 23:00; Status Cancel Montelukast Sodium (Singulair) 10 mg DAILY PO Last administered on 02/21/17 08 :27; Start 02/21/17 at 09:00 Nitroglycerin (Nitrostat) 0.4 mg PRN Q5MIN PRN SL CHEST PAIN; Start 02/20/17 at 22:45 Potassium Chloride (Klor-Con) 20 meq BID PO Last administered on 02/21/17 08: 28; Start 02/20/17 at 23:00 Pregabalin (Lyrica) 50 mg BID PO ; Start 02/20/17 at 23:00; Status Cancel Prochlorperazine (Compazine) 25 mg PRN Q6HRS PRN RC NAUSEA/VOMITING; Start 06/29 at 22:45 Tramadol HCl (Ultram) 50 mg HS PO ; Start 02/20/17 at 23:00; Status Cancel Warfarin Sodium (Coumadin) 5 mg TuWeTh PO ; Start 02/23/17 at 16:00 Warfarin Sodium (Coumadin) 6 mg QFRSASUMO PO ; Start 02/22/17 at 16:00 Cetirizine HCl (ZyrTEC) 10 mg QHS PO ; Start 02/20/17 at 23:00; Status Cancel Al Hydroxide/Mg Hydroxide (Mylanta Plus Xs) 30 ml PRN Q4HRS PRN PO INDIGESTION ; Start 02/20/17 at 23:00 Non-Formulary Medication 1 tab QHS PO ; Start 02/21/17 at 21:00; Stop 02/21/17 at 21:00; Status DC Pantoprazole Sodium (Protonix) 40 mg DAILYAC PO Last administered on 02/21/17 08:27; Start 02/21/17 at 07:30 Non-Formulary Medication 1 tab QHS PO ; Start 02/21/17 at 21:00; Stop 02/21/17 at 21:00; Status DC Atorvastatin Calcium (Lipitor) 10 mg QHS PO Last administered on 02/20/17 23: 20; Start 02/20/17 at 23:00 Benztropine Mesylate (Cogentin) 1 mg BID PO Last administered on 02/21/17 08: 28; Start 02/20/17 at 23:00 Diclofenac Sodium (Voltaren) 1 janeen BID TP ; Start 02/20/17 at 23:00; Status Cancel Divalproex Sodium (Depakote Er) 500 mg BID PO Last administered on 02/21/17 08 :27; Start 02/20/17 at 23:30 Lurasidone HCl (Latuda) 20 mg QHS PO Last administered on 02/20/17 23:19; Start 02/20/17 at 23:00 Methylphenidate HCl (Ritalin) 5 mg QHS PO Last administered on 02/20/17 23:20 ; Start 02/20/17 at 23:00 Metoprolol Tartrate (Lopressor) 25 mg BID PO Last administered on 02/21/17 08: 27; Start 02/20/17 at 23:00 Pregabalin (Lyrica) 50 mg BID PO Last administered on 02/21/17 08:29; Start at 23:00 Tramadol HCl (Ultram) 50 mg HS PO Last administered on 02/21/17 08:34; Start 02/20/17 at 23:00 Cetirizine HCl (ZyrTEC) 10 mg QHS PO Last administered on 02/20/17 23:17; Start 02/20/17 at 23:00 Olanzapine (ZyPREXA) 15 mg QHS PO Last administered on 02/20/17 23:20; Start 02/20/17 at 23:15 Quetiapine Fumarate (SEROquel) 50 mg QHS PO Last administered on 02/20/17 23: 17; Start 02/20/17 at 23:15 Warfarin Sodium (Coumadin Per Physician) 1 each PRN DAILY PRN MC SEE COMMENTS Last administered on 02/21/17 02:52; Start 02/20/17 at 23:15; Stop 02/21/17 at 08:25; Status DC Warfarin Sodium (Coumadin Per Pharmacy) 1 each PRN DAILY PRN MC SEE COMMENTS Last administered on 02/21/17 09:13; Start 02/21/17 at 08:30 Warfarin Sodium (Coumadin) 7.5 mg 1X WARF ONCE PO ; Start 02/21/17 at 16:00; Stop 02/21/17 at 16:01 Acetaminophen/ Hydrocodone Bitart (Lortab 5/325) 1 tab Q4HRS PO ; Start at 12:00; Stop 02/21/17 at 12:00; Status DC Acetaminophen/ Hydrocodone Bitart (Lortab 5/325) 1 tab PRN Q4HRS PRN PO PAIN; Start 02/21/17 at 12:00 Active Scripts Active Atorvastatin Calcium 10 Mg Tablet 10 Mg PO QHS Reported [place] 5-325 Tablet (Acetaminophen/Hydrocodone Bitart) 1 Each Tablet 1 Tab PO Q4- 6HRS Latuda (Lurasidone Hcl) 40 Mg Tablet 20 Mg PO QHS Singulair Tablet (Montelukast Sodium) 10 Mg Tablet 1 Tab PO DAILY Zyprexa (Olanzapine) 15 Mg Tablet 1 Tab PO QHS Fluoxetine Hcl 20 Mg Capsule 1 Cap PO DAILY Loratadine 10 Mg Tablet 10 Mg PO QHS Lyrica (Pregabalin) 50 Mg Capsule 1 Cap PO BID Metoprolol Tartrate 25 Mg Tablet 1 Tab PO BID Lisinopril 20 Mg Tablet 1 Tab PO DAILY Methylphenidate Hcl 5 Mg Tablet 1 Tab PO QHS Omeprazole 40 Mg Capsule.dr 1 Cap PO DAILY Coumadin (Warfarin Sodium) 6 Mg Tablet 1 Tab PO DAILY Warfarin Sodium 5 Mg Tablet 1 Tab PO DAILY Compazine (Prochlorperazine Maleate) 25 Mg Supp.rect 25 Mg RC PRN Q6HRS PRN Albuterol Sulfate Neb Soln (Albuterol Sulfate) 2.5 Mg/3 Ml Vial.neb 1 Vial NEB PRN Q4HRS Seroquel (Quetiapine Fumarate) 50 Mg Tablet 1 Tab PO QHS Voltaren (Diclofenac Sodium) 100 Gm Gel..gram. 1 Gm TP BID Tramadol Hcl 50 Mg Tablet 1 Tab PO HS Maalox Advanced Suspension (Mag Hydrox/Al Hydrox/Simeth) 770 Ml Oral.susp 30 Ml PO PRN Q4HRS PRN Nitrostat (Nitroglycerin) 0.4 Mg Tab.subl 0.4 Mg SL PRN Q5MIN PRN Klor-Con M20 (Potassium Chloride) 20 Meq Tab.er.prt 1 Tab PO BID Furosemide 40 Mg Tablet 1 Tab PO DAILY Divalproex Sodium Er (Divalproex Sodium) 500 Mg Tab.er.24h 1 Tab PO BID Benztropine Mesylate 1 Mg Tablet 1 Tab PO BID Fluticasone Propionate Nasal [place] (Fluticasone Propionate) 16 Gm [place].susp 2 Sprays NS BID for seasonal allergies Allergies Allergies: Coded Allergies: Sulfa (Sulfonamide Antibiotics) (Verified Allergy, Severe, rash, tongue swelling, 8/3/15) Iodinated Contrast- Oral and IV Dye (Verified Allergy, Intermediate, rash , 04/15/15) Penicillins (Verified Allergy, Intermediate, Hives, 04/15/15) aspirin (Verified Allergy, Intermediate, Hives, 04/15/15) codeine (Verified Allergy, Intermediate, Hives; SEE COMMENT, 06/08/15) PT REPORTS TAKING LORTAB WITHOUT COMPLICATIONS, PER ED diphenhydramine HCl (Verified Allergy, Intermediate, rash, 12/19/13) latex (Verified Allergy, Intermediate, Rash, 12/18/13) ROS PSYCHOLOGICAL ROS: YES: Anxiety Cardiovascular: yes Chest Pain Physical Exam General: No acute distress HEENT: Atraumatic Lungs: Clear to auscultation Heart: Regular rate Abdomen: Normal bowel sounds Extremities: No clubbing Vitals VITALS Vital Signs Date Time Temp Pulse Resp B/P (MAP) Pulse Ox O2 Delivery O2 Flow Rate FiO2 02/21/17 15:00 98.0 60 18 126/72 (90) 94 Nasal Cannula 2.0 98.0 Labs Labs Laboratory Tests Test 02/20/17 17:50 02/21/17 00:35 02/21/17 06:50 White Blood Count 7.9 x10^3/uL (4.0-11.0) 6.0 x10^3/uL (4.0-11.0) Red Blood Count 5.07 x10^6/uL (3.50-5.40) 4.60 x10^6/uL (3.50-5.40) Hemoglobin 14.6 g/dL (12.0-15.5) 13.1 g/dL (12.0-15.5) Hematocrit 43.2 % (36.0-47.0) 39.9 % (36.0-47.0) Mean Corpuscular Volume 85 fL (79-100) 87 fL (79-100) Mean Corpuscular Hemoglobin 29 pg (25-35) 29 pg (25-35) Mean Corpuscular Hemoglobin Concent 34 g/dL (31-37) 33 g/dL (31-37) Red Cell Distribution Width 14.0 % (11.5-14.5) 13.9 % (11.5-14.5) Platelet Count 179 x10^3/uL (140-400) 142 x10^3/uL (140-400) Neutrophils (%) (Auto) 63 % (31-73) 55 % (31-73) Lymphocytes (%) (Auto) 27 % (24-48) 34 % (24-48) Monocytes (%) (Auto) 8 % (0-9) 9 % (0-9) Eosinophils (%) (Auto) 2 % (0-3) 2 % (0-3) Basophils (%) (Auto) 1 % (0-3) 0 % (0-3) Neutrophils # (Auto) 4.9 x10^3uL (1.8-7.7) 3.3 x10^3uL (1.8-7.7) Lymphocytes # (Auto) 2.1 x10^3/uL (1.0-4.8) 2.1 x10^3/uL (1.0-4.8) Monocytes # (Auto) 0.7 x10^3/uL (0.0-1.1) 0.5 x10^3/uL (0.0-1.1) Eosinophils # (Auto) 0.1 x10^3/uL (0.0-0.7) 0.1 x10^3/uL (0.0-0.7) Basophils # (Auto) 0.0 x10^3/uL (0.0-0.2) 0.0 x10^3/uL (0.0-0.2) Prothrombin Time 15.8 SEC (11.7-14.0) Prothromb Time International Ratio 1.3 (0.8-1.1) Activated Partial Thromboplast Time 28 SEC (24-38) Sodium Level 142 mmol/L (136-145) 142 mmol/L (136-145) Potassium Level 3.8 mmol/L (3.5-5.1) 3.9 mmol/L (3.5-5.1) Chloride Level 102 mmol/L (98-107) 104 mmol/L (98-107) Carbon Dioxide Level 33 mmol/L (21-32) 32 mmol/L (21-32) Anion Gap 7 (6-14) 6 (6-14) Blood Urea Nitrogen 19 mg/dL (7-20) 20 mg/dL (7-20) Creatinine 0.8 mg/dL (0.6-1.0) 0.7 mg/dL (0.6-1.0) Estimated GFR (Cockcroft-Gault) 74.2 86.6 Glucose Level 104 mg/dL (70-99) 103 mg/dL (70-99) Calcium Level 9.2 mg/dL (8.5-10.1) 8.8 mg/dL (8.5-10.1) Magnesium Level 1.8 mg/dL (1.8-2.4) Troponin I Quantitative < 0.017 ng/mL (0.000-0.055) < 0.017 ng/mL (0.000-0.055) < 0.017 ng/mL (0.000-0.055) GV-Uek-S-Type Natriuretic Peptide 591 pg/mL (0-124) BUN/Creatinine Ratio 29 (6-20) Total Bilirubin 0.2 mg/dL (0.2-1.0) Aspartate Amino Transf (AST/SGOT) 17 U/L (15-37) Alanine Aminotransferase (ALT/SGPT) 21 U/L (14-59) Alkaline Phosphatase 76 U/L (46-116) Total Protein 6.6 g/dL (6.4-8.2) Albumin 3.0 g/dL (3.4-5.0) Albumin/Globulin Ratio 0.8 (1.0-1.7) Laboratory Tests Test 02/20/17 17:50 02/21/17 00:35 02/21/17 06:50 White Blood Count 7.9 x10^3/uL (4.0-11.0) 6.0 x10^3/uL (4.0-11.0) Red Blood Count 5.07 x10^6/uL (3.50-5.40) 4.60 x10^6/uL (3.50-5.40) Hemoglobin 14.6 g/dL (12.0-15.5) 13.1 g/dL (12.0-15.5) Hematocrit 43.2 % (36.0-47.0) 39.9 % (36.0-47.0) Mean Corpuscular Volume 85 fL (79-100) 87 fL (79-100) Mean Corpuscular Hemoglobin 29 pg (25-35) 29 pg (25-35) Mean Corpuscular Hemoglobin Concent 34 g/dL (31-37) 33 g/dL (31-37) Red Cell Distribution Width 14.0 % (11.5-14.5) 13.9 % (11.5-14.5) Platelet Count 179 x10^3/uL (140-400) 142 x10^3/uL (140-400) Neutrophils (%) (Auto) 63 % (31-73) 55 % (31-73) Lymphocytes (%) (Auto) 27 % (24-48) 34 % (24-48) Monocytes (%) (Auto) 8 % (0-9) 9 % (0-9) Eosinophils (%) (Auto) 2 % (0-3) 2 % (0-3) Basophils (%) (Auto) 1 % (0-3) 0 % (0-3) Neutrophils # (Auto) 4.9 x10^3uL (1.8-7.7) 3.3 x10^3uL (1.8-7.7) Lymphocytes # (Auto) 2.1 x10^3/uL (1.0-4.8) 2.1 x10^3/uL (1.0-4.8) Monocytes # (Auto) 0.7 x10^3/uL (0.0-1.1) 0.5 x10^3/uL (0.0-1.1) Eosinophils # (Auto) 0.1 x10^3/uL (0.0-0.7) 0.1 x10^3/uL (0.0-0.7) Basophils # (Auto) 0.0 x10^3/uL (0.0-0.2) 0.0 x10^3/uL (0.0-0.2) Prothrombin Time 15.8 SEC (11.7-14.0) Prothromb Time International Ratio 1.3 (0.8-1.1) Activated Partial Thromboplast Time 28 SEC (24-38) Sodium Level 142 mmol/L (136-145) 142 mmol/L (136-145) Potassium Level 3.8 mmol/L (3.5-5.1) 3.9 mmol/L (3.5-5.1) Chloride Level 102 mmol/L (98-107) 104 mmol/L (98-107) Carbon Dioxide Level 33 mmol/L (21-32) 32 mmol/L (21-32) Anion Gap 7 (6-14) 6 (6-14) Blood Urea Nitrogen 19 mg/dL (7-20) 20 mg/dL (7-20) Creatinine 0.8 mg/dL (0.6-1.0) 0.7 mg/dL (0.6-1.0) Estimated GFR (Cockcroft-Gault) 74.2 86.6 Glucose Level 104 mg/dL (70-99) 103 mg/dL (70-99) Calcium Level 9.2 mg/dL (8.5-10.1) 8.8 mg/dL (8.5-10.1) Magnesium Level 1.8 mg/dL (1.8-2.4) Troponin I Quantitative < 0.017 ng/mL (0.000-0.055) < 0.017 ng/mL (0.000-0.055) < 0.017 ng/mL (0.000-0.055) JV-Ylf-J-Type Natriuretic Peptide 591 pg/mL (0-124) BUN/Creatinine Ratio 29 (6-20) Total Bilirubin 0.2 mg/dL (0.2-1.0) Aspartate Amino Transf (AST/SGOT) 17 U/L (15-37) Alanine Aminotransferase (ALT/SGPT) 21 U/L (14-59) Alkaline Phosphatase 76 U/L (46-116) Total Protein 6.6 g/dL (6.4-8.2) Albumin 3.0 g/dL (3.4-5.0) Albumin/Globulin Ratio 0.8 (1.0-1.7) Images Images Chest x-ray shows no acute changes. Assessment/Plan Assessment/Plan 1. Chest pain. Patient's pain has improved. Troponins are normal 3. She has no acute EKG changes. Lexiscan testing last July showed no ischemia or infarct. At this time to continue medical treatment and increase activities. 2. Aortic valve replacement. We'll continue present medications. Check an echocardiogram. 3. Anxiety. Will continue present medications. 4. Hypertension. Will continue present medications. Thank you for allowing us to participate in the care of your patient. DAT MIMS MD Feb 21, 2017 15:46
[2017-02-21] MEDS ORDERED: WARFARIN 7.5 MG TABLET. PO ONE (16:00)
[2017-02-21] MEDS: HYDROcodone/APAP 5/325MG 1 TAB TABLET PO PRN ×2 (16:36→20:45)
[2017-02-21 19:25] VITALS: BP 105/55
[2017-02-21] MEDS: METHYLPHENIDATE HCL 5 MG TABLET PO SCH (20:28)
[2017-02-21] MEDS: LURASIDONE 40 MG TABLET. PO SCH (20:28)
[2017-02-21] MEDS: ATORVASTATIN CALCIUM 10 MG TABLET. PO SCH (20:30)
[2017-02-21] MEDS: QUEtiapine 25 MG TABLET. PO SCH (20:31)
[2017-02-21] MEDS: CETIRIZINE HCL 10 MG TABLET. PO SCH (20:32)
[2017-02-21] MEDS: OLANZapine 5 MG TABLET PO SCH (20:33)
[2017-02-21] MEDS ORDERED: OLANZAPINE PO SCH (21:00)
[2017-02-21] MEDS ORDERED: NON FORMULARY ITEM (Quetiapine Fumarate (Seroquel) 1 TAB) PO SCH (21:00)
[2017-02-21 23:00] VITALS: BP 113/69
[2017-02-22 03:10] VITALS: BP 103/61
[2017-02-22 04:54] LABS: INR 1.5 (0.8-1.1); PROTHROMBIN TIME PATIENT 16.9 SEC (11.7-14.0)
--- NOTE | 2017-02-22 06:01 | HP ---
ADMIT DATE: 02/20/2017 ADMITTING PHYSICIANS: Dr. Hudson and Dr. West. HISTORY OF PRESENT ILLNESS: This 56 years old female who has been admitted to this institution previously for chest pains in 08/2016, started having chest pains for one day prior to admission. The patient has had chest pains frequently and she points to an area in the left chest, slightly lateral to the mid sternum where she has the pain. The pain is not radiating, although she does admit to some left shoulder pain and tingling, numbness in the left upper extremity. She denies any neck pain. She denies any heartburn, cold, cough, congestion, fever or chills. She does admit to having occasional dyspnea and dizziness, but no sweating or palpitations with her chest pains. Chest pains resolved spontaneously and occur even at rest. The patient has a history of coronary artery disease with three stents and also has history of aortic valve replacement, which is mechanical with a subtherapeutic INR of 1.3 and because of her multiple problems, the patient was admitted for further evaluation and management. SYSTEMS REVIEW: At the present time, the patient's chest pain this morning is improving. She denies any dyspnea, dizziness, palpitations. She denies any nausea, vomiting, heartburn, constipation, dysuria. She does admit to low back pain and left shoulder pain. Other systems reviewed and are negative. PAST MEDICAL HISTORY: The patient was last admitted here in July and August 2016. Cardiac workup including stress test was negative at that time. The patient was then started on Protonix and then discharged. The patient had EGD, colonoscopies in the past, which showed some gastritis and small intestinal ulceration. The patient has had a cardiac catheterization in 2014 that was negative. She has coronary artery disease, COPD, asthma, bipolar disorder, schizophrenia, arthritis, narcolepsy and gastroesophageal reflux disease. PAST SURGICAL HISTORY: The patient had mechanical aortic valve placement. She had 2 cardiac stents to the right coronary artery in 2012. She has a pacemaker for sick sinus syndrome. Cardiac catheterization that was negative in 2014. Also, has gallbladder surgery and she also had hysterectomy. ALLERGIES: THE PATIENT IS ALLERGIC TO IV CONTRAST, IVP WITH DYE, PENICILLIN, SULFA, ASPIRIN, CODEINE, LATEX, BENADRYL. MEDICATIONS: I reviewed the medications. Please refer the orders. SOCIAL HISTORY: No history of smoking, alcoholism, drug abuse. The patient has been a halfway resident previously. PHYSICAL EXAMINATION: GENERAL: The patient is a middle-aged female who is alert, oriented, obese, and not in acute distress. VITAL SIGNS: Blood pressure 153/86 mmHg, pulse 60 per minute, temperature 97.6, respirations 20 per minute. GENERAL: The patient is alert, oriented and not in acute distress. LUNGS: Clear. HEENT: Unremarkable. Eyes: Pupils equal, reacting to light. SKIN: Warm and dry. There is no cyanosis. NECK: Supple. JVP normal. No thyromegaly. Trachea midline. LUNGS: Clear. CARDIOVASCULAR SYSTEM: S1, S2 regular. CHEST: There is no chest wall tenderness. ABDOMEN: Soft, nontender, no guarding, no rigidity. Bowel sounds present. EXTREMITIES: No edema. CENTRAL NERVOUS SYSTEM: Moves all extremities. Alert and oriented. No acute changes noted. LABORATORY FINDINGS: WBC count 7.9, today it is 6.0; yesterday, hemoglobin was 14.6, today it is 13.1; platelet count 179,000 yesterday, 142,000 today. Sodium 142, potassium 3.8, BUN 19, creatinine 0.8. Cardiac enzymes have been normal. BNP 591. Liver enzymes are normal. Albumin is low at 3. INR is subtherapeutic at 1.3. Chest x-ray, no acute changes. S IMPRESSION: 1. Chest pain. The patient does have a history of coronary artery disease with 2 cardiac stents, but previous workup in August 2016 with stress test was negative. 2. Coronary artery disease with 2 cardiac stents in 2012 in right coronary artery. 3. History of mechanical aortic valve, on Coumadin. INR is subtherapeutic. We will increase the dose of Coumadin and let pharmacy make adjustments. 4. History of schizophrenia and bipolar disorder. 5. Hypertension. 6. Hyperlipidemia. 7. Narcolepsy. 8. Sleep apnea. 9. History of chronic obstructive pulmonary disease and asthma. PLAN: Condition and treatment discussed with Dr. Rasmussen. He will decide on what type of cardiac workup to pursue. For details, please refer to the orders. HARRY DE LA VEGA MD DR: ELDA/cori JOB#: [id number] / [id number] RUBIO Birch VINAYA MD
[2017-02-22 07:00] VITALS: BP 116/58
[2017-02-22] MEDS: PANTOPRAZOLE 40 MG TABLET.DR. PO SCH (08:20)
[2017-02-22] MEDS: FLUTICASONE 50MCG/NASAL SPRAY 16GM BOTTLE. NS SCH ×2 (08:20→20:38)
[2017-02-22] MEDS: POTASSIUM CHLORIDE 20 MEQ TABLET.ER. PO SCH ×2 (08:21→20:40)
[2017-02-22] MEDS: DIVALPROEX EXTENDED RELEASE 500 MG TAB.ER.24H. PO SCH ×2 (08:21→20:41)
[2017-02-22] MEDS: FUROSEMIDE 40 MG TABLET. PO SCH (08:21)
[2017-02-22] MEDS: PREGABALIN 50 MG CAPSULE PO SCH ×2 (08:21→20:39)
[2017-02-22] MEDS: BENZTROPINE MESYLATE 1 MG TABLET. PO SCH ×2 (08:22→20:40)
[2017-02-22] MEDS: LISINOPRIL 20 MG TABLET PO SCH (08:22)
[2017-02-22] MEDS: MONTELUKAST SODIUM 10 MG TABLET. PO SCH (08:22)
[2017-02-22] MEDS: FLUoxetine HCL 20 MG CAPSULE PO SCH (08:22)
[2017-02-22] MEDS: METOPROLOL TART IMMED RELEASE 25 MG TABLET. PO SCH ×2 (08:22→20:40)
[2017-02-22] MEDS: DICLOFENAC SODIUM 1% TOPICAL GEL 100GM TUBE. TP SCH ×2 (08:24→20:38)
--- NOTE | 2017-02-22 09:53 | PDOC ---
PROGRESS NOTES Subjective Subjective feeling better, no cp today Objective Objective Vital Signs Date Time Temp Pulse Resp B/P (MAP) Pulse Ox O2 Delivery O2 Flow Rate FiO2 02/22/17 08:22 67 116/58 02/22/17 08:00 Nasal Cannula 1.0 02/22/17 07:00 97.7 18 95 97.7 Intake and Output 02/22/17 07:00 Intake Total 2160 ml Output Total 2700 ml Balance -540 ml Intake Oral 2160 ml Output Urine Total 2700 ml Physical Exam Abdomen: Normal bowel sounds Heart: Regular rate Extremities: No clubbing General: No acute distress HEENT: Atraumatic Lungs: Clear to auscultation MUSCULOSKELETAL: No deformity, Osteoarthritic changes both hands Neck: Supple Neuro: Normal speech Psych/Mental Status: Mental status NL Skin: No rashes Diagnosis Problem List Problems Medical Problems: (1) Chest pain Status: Acute (2) Subtherapeutic international normalized ratio (INR) Status: Acute Assessment Assessment Problems Medical Problems: (1) Chest pain Status: Acute (2) Subtherapeutic international normalized ratio (INR) Status: Acute IMPRESSION: 1. Chest pain. The patient does have a history of coronary artery disease with 2 cardiac stents, but previous workup in August 2016 with stress test was negative. 2. Coronary artery disease with 2 cardiac stents in 2012 in right coronary artery. 3. History of mechanical aortic valve, on Coumadin. INR is subtherapeutic. We will increase the dose of Coumadin and let pharmacy make adjustments. 4. History of schizophrenia and bipolar disorder. 5. Hypertension. 6. Hyperlipidemia. 7. Narcolepsy. 8. Sleep apnea. 9. History of chronic obstructive pulmonary disease and asthma. 10.H/o Pacemaker PLAN: troponin neg inr 1.5 low will give lovenox in addition to coumadin ECHO today. labs reviewed. Condition and treatment discussed with Dr. Rasmussen. He will decide on what type of cardiac workup to pursue. For details, please refer to the orders. Problems: Plan Plan of Care Problems Medical Problems: (1) Chest pain Status: Acute (2) Subtherapeutic international normalized ratio (INR) Status: Acute Comment Review of Relevant I have reviewed the following items yonathan (where applicable) has been applied. Labs Laboratory Tests Test 02/22/17 03:05 Prothrombin Time 16.9 SEC (11.7-14.0) Prothromb Time International Ratio 1.5 (0.8-1.1) Medications Current Medications Acetaminophen/ Hydrocodone Bitart (Lortab 5/325) 1 tab PRN Q4HRS PRN PO PAIN Last administered on 02/21/17 20:45; Start 02/21/17 at 12:00 Acetaminophen/ Hydrocodone Bitart (Lortab 5/325) 1 tab Q4HRS PO ; Start at 12:00; Stop 02/21/17 at 12:00; Status DC Non-Formulary Medication 1 tab QHS PO ; Start 02/21/17 at 21:00; Stop 02/21/17 at 21:00; Status DC Non-Formulary Medication 1 tab QHS PO ; Start 02/21/17 at 21:00; Stop 02/21/17 at 21:00; Status DC Warfarin Sodium (Coumadin) 5 mg TuWeTh PO ; Start 02/23/17 at 16:00 Warfarin Sodium (Coumadin) 6 mg QFRSASUMO PO ; Start 02/22/17 at 16:00 Warfarin Sodium (Coumadin) 7.5 mg 1X WARF ONCE PO Last administered on 16:37; Start 02/21/17 at 16:00; Stop 02/21/17 at 16:01; Status DC Vitals/I & O Vital Sign - Last 24 Hours 02/21/17 02/21/17 02/21/17 02/21/17 11:00 15:00 16:36 18:28 Temp 97.8 98.0 97.8 98.0 Pulse 59 60 Resp 18 18 18 B/P (MAP) 134/70 (91) 126/72 (90) Pulse Ox 95 94 94 94 O2 Delivery Nasal Cannula Nasal Cannula Nasal Cannula Nasal Cannula O2 Flow Rate 2.0 2.0 2.0 2.0 02/21/17 02/21/17 02/21/17 02/21/17 19:25 20:00 20:32 20:45 Temp 96.8 96.8 Pulse 60 60 Resp 18 20 B/P (MAP) 105/55 (72) 121/64 Pulse Ox 95 O2 Delivery Nasal Cannula Nasal Cannula O2 Flow Rate 2.0 1.0 02/21/17 02/21/17 02/22/17 02/22/17 21:45 23:00 03:10 07:00 Temp 97.9 97.6 97.7 97.9 97.6 97.7 Pulse 62 62 60 Resp 22 18 20 18 B/P (MAP) 113/69 (84) 103/61 (75) 116/58 (77) Pulse Ox 96 95 95 O2 Delivery Nasal Cannula Nasal Cannula Nasal Cannula O2 Flow Rate 2.0 2.0 2.0 02/22/17 02/22/17 02/22/17 08:00 08:22 08:22 Pulse 67 67 B/P (MAP) 116/58 116/58 O2 Delivery Nasal Cannula O2 Flow Rate 1.0 Intake and Output 02/21/17 02/21/17 02/22/17 15:00 23:00 07:00 Intake Total 400 ml 480 ml 1280 ml Output Total 1200 ml 1400 ml 100 ml Balance -800 ml -920 ml 1180 ml NICOLE SMITH MD Feb 22, 2017 09:53
[2017-02-22 11:00] VITALS: BP 114/64
[2017-02-22 15:00] VITALS: BP 111/56
--- NOTE | 2017-02-22 15:58 | PDOC ---
CARDIO Progress Notes Date and Time Date of Service 02/22/17 Time of Evaluation 1345 Subjective Subjective: No Chest Pain, No shortness of breath, No Palpitations Vitals Vitals Vital Signs Date Time Temp Pulse Resp B/P (MAP) Pulse Ox O2 Delivery O2 Flow Rate FiO2 02/22/17 15:00 98.3 62 20 111/56 (74) 95 Nasal Cannula 2.0 98.3 Weight Weight [ ] Input and Output Intake and Output Intake and Output 02/22/17 06:59 Intake Total 2160 ml Output Total 2700 ml Balance -540 ml Intake Oral 2160 ml Output Urine Total 2700 ml Laboratory Labs Laboratory Tests Test 02/22/17 03:05 Prothrombin Time 16.9 SEC (11.7-14.0) Prothromb Time International Ratio 1.5 (0.8-1.1) Physical Exam HEENT: Neck Supple W Full Motion Chest: Symmetric LUNGS: Clear to Auscultation Heart: S1S2, RRR Abdomen: Soft N/T Extremities: No Edema, No Calf Tenderness Neurology: alert, oriented, follow commands Assessment Assessment 1. Chest pain, atypical Troponin series normal; AMI ruled out Recent MPI without evidence of ischemia or infarct Echo pending to evaluate presence of WMA. If WNL, may discharge from a CV standpoint and f/u in our office in 2-4 weeks. 2. CAD s/p PCI/stent placement cardiac cath in 2013 with patent stents continue secondary prevention measures 2. S/p Aortic valve replacement. INR subtherapeutic; warfarin management per pharmacy echocardiogram as above for evaluation 3. Hypertension controlled with meds 4. Anxiety/bipolar disorder/schizophrenia per PCP. Will continue present medications. SOTERO DUMONT APRN Feb 22, 2017 15:58
[2017-02-22] MEDS ORDERED: WARFARIN 6 MG TABLET. PO SCH (16:00)
[2017-02-22] MEDS ORDERED: WARFARIN 7.5 MG TABLET. PO ONE (16:00)
[2017-02-22 19:50] VITALS: BP 126/74
[2017-02-22] MEDS: CETIRIZINE HCL 10 MG TABLET. PO SCH (20:38)
[2017-02-22] MEDS: traMADol 50 MG TABLET PO SCH (20:39)
[2017-02-22] MEDS: ATORVASTATIN CALCIUM 10 MG TABLET. PO SCH (20:39)
[2017-02-22] MEDS: OLANZapine 5 MG TABLET PO SCH (20:39)
[2017-02-22] MEDS: METHYLPHENIDATE HCL 5 MG TABLET PO SCH (20:39)
[2017-02-22] MEDS: QUEtiapine 25 MG TABLET. PO SCH (20:39)
[2017-02-22] MEDS: LURASIDONE 40 MG TABLET. PO SCH (20:42)
[2017-02-22 22:50] VITALS: BP 133/77
[2017-02-23] MEDS: HYDROcodone/APAP 5/325MG 1 TAB TABLET PO PRN ×2 (01:59→09:12)
[2017-02-23 03:05] VITALS: BP 121/61
[2017-02-23 06:43] LABS: CHOLESTEROL/HDL RATIO 4.9
[2017-02-23 07:05] LABS: INR 2.4 (0.8-1.1)
[2017-02-23 07:25] VITALS: BP 120/70
[2017-02-23] MEDS: DICLOFENAC SODIUM 1% TOPICAL GEL 100GM TUBE. TP SCH (09:04)
[2017-02-23] MEDS: FLUTICASONE 50MCG/NASAL SPRAY 16GM BOTTLE. NS SCH (09:04)
[2017-02-23] MEDS: BENZTROPINE MESYLATE 1 MG TABLET. PO SCH (09:06)
[2017-02-23] MEDS: FLUoxetine HCL 20 MG CAPSULE PO SCH (09:06)
[2017-02-23] MEDS: PREGABALIN 50 MG CAPSULE PO SCH (09:06)
[2017-02-23] MEDS: POTASSIUM CHLORIDE 20 MEQ TABLET.ER. PO SCH (09:07)
[2017-02-23] MEDS: LISINOPRIL 20 MG TABLET PO SCH (09:07)
[2017-02-23] MEDS: PANTOPRAZOLE 40 MG TABLET.DR. PO SCH (09:08)
[2017-02-23] MEDS: MONTELUKAST SODIUM 10 MG TABLET. PO SCH (09:08)
[2017-02-23] MEDS: DIVALPROEX EXTENDED RELEASE 500 MG TAB.ER.24H. PO SCH (09:08)
[2017-02-23] MEDS: METOPROLOL TART IMMED RELEASE 25 MG TABLET. PO SCH (09:08)
[2017-02-23] MEDS: FUROSEMIDE 40 MG TABLET. PO SCH (09:08)
--- NOTE | 2017-02-23 09:12 | CARD ---
APPROVED REPORT EXAM: Two-dimensional and M-mode echocardiogram with Doppler and color Doppler. Other Information Quality : Fair INDICATION Aortic Valve Disease Surgery/Intervention Status/Post Aortic Valve Replacement: Mechanical 2D DIMENSIONS RVDd3.2 (2.9-3.5cm)Left Atrium(2D)3.2 (1.6-4.0cm) IVSd1.3 (0.7-1.1cm)Aortic Root(2D)3.1 (2.0-3.7cm) LVDd4.7 (3.9-5.9cm)LVOT Diameter2.1 (1.8-2.4cm) PWd1.2 (0.7-1.1cm)LVDs3.2 (2.5-4.0cm) FS (%) 27.0 %SV63.5 ml LVEF(%)55.0 (>50%) Aortic Valve AoV Peak Garcia.360.1cm/sAoV VTI85.5cm AO Peak GR.51.9mmHgLVOT Peak Garcia.99.5cm/s LVOT VTI 25.13cmAO Mean GR.33mmHg CRISTINE (VMAX)0.13ry4LBX (VTI)1.02cm2 Mitral Valve MV E Xejbkqjg69.4cm/sMV DECEL XGGX124lv MV A Gbflidto96.7cm/sMV HQG47da E/A Ratio1.2MVA (PHT)3.57cm2 TDI E/Lateral E'7.1E/Medial E'8.7 Tricuspid Valve TR P. Katqsxrx325jk/sRAP QGSKPNHM8yhUk TR Peak Gr.39erFqXQUM30dvNw LEFT VENTRICLE The left ventricle is normal size. There is mild concentric left ventricular hypertrophy. The Ejectio n Fraction is 55%. Unable to determine wall motion accurately. Grossly normal wall motion. RIGHT VENTRICLE The right ventricle is normal size. The right ventricular systolic function is normal. There is a pac emaker/ICD lead in the right ventricle. ATRIA The left atrium size is normal. The right atrium size is normal. A pacemaker lead is seen in the righ t atrium consistent with history. The interatrial septum is intact with no evidence for an atrial sep ghazal defect or patent foramen ovale as noted on 2-D or Doppler imaging. AORTIC VALVE Doppler and Color Flow revealed no significant aortic regurgitation. Calculated aortic valve area is 1.0 cm2 with maximum pressure gradient of 52 mmHg and mean pressure gradient of 33 mmHg. Doppler and color-flow analysis revealed moderate aortic stenosis. Unknown prosthetic type, correlate gradients. There is a mechanical aortic valve prosthesis. MITRAL VALVE The mitral valve is normal in structure and function. Mitral annular calcification is mild. There is no evidence of mitral valve prolapse. There is no mitral valve stenosis. Doppler and Color-flow revea led mild mitral regurgitation. TRICUSPID VALVE The tricuspid valve is normal in structure and function. Doppler and Color Flow revealed mild tricusp id regurgitation. The PA pressure was estimated at 35 mmHg. There is no tricuspid valve stenosis. PULMONIC VALVE Doppler and Color Flow revealed mild pulmonic valvular regurgitation. There is no pulmonic valvular s tenosis. GREAT VESSELS The aortic root is normal in size. The ascending aorta is mildy dilated at 3.9 cm. The IVC is normal in size and collapses >50% with inspiration. PERICARDIAL EFFUSION There is no evidence of significant pericardial effusion. Critical Notification Critical Value: No <Conclusion> The Ejection Fraction is 55%. Unable to determine wall motion accurately. Grossly normal wall motion. There is a pacemaker/ICD lead in the right ventricle. There is a mechanical aortic valve prosthesis. Calculated aortic valve area is 1.0 cm2 with maximum pressure gradient of 52 mmHg and mean pressure g radient of 33 mmHg. Doppler and color-flow analysis revealed moderate aortic stenosis. Unknown prosth etic type, correlate gradients. The ascending aorta is mildy dilated at 3.9 cm.
--- NOTE | 2017-02-23 10:19 | PDOC ---
PROGRESS NOTES Subjective Subjective no more chest pains,ready to go home Objective Objective Vital Signs Date Time Temp Pulse Resp B/P (MAP) Pulse Ox O2 Delivery O2 Flow Rate FiO2 02/23/17 09:12 Room Air 02/23/17 09:08 65 119/66 02/23/17 07:25 97.8 20 95 2.0 97.8 Intake and Output 02/23/17 06:59 Intake Total 4570 ml Output Total 3100 ml Balance 1470 ml Intake Oral 4570 ml Output Urine Total 3100 ml Physical Exam Abdomen: Normal bowel sounds Heart: Regular rate Extremities: No clubbing General: No acute distress HEENT: Atraumatic Lungs: Clear to auscultation MUSCULOSKELETAL: No deformity, Osteoarthritic changes both hands Neck: Supple Neuro: Normal speech Psych/Mental Status: Mental status NL Skin: No rashes Diagnosis Problem List Problems Medical Problems: (1) Chest pain Status: Acute (2) Subtherapeutic international normalized ratio (INR) Status: Acute Assessment Assessment Problems Medical Problems: (1) Chest pain Status: Acute (2) Subtherapeutic international normalized ratio (INR) Status: Acute IMPRESSION: 1. Chest pain. The patient does have a history of coronary artery disease with 2 cardiac stents, but previous workup in August 2016 with stress test was negative. 2. Coronary artery disease with 2 cardiac stents in 2012 in right coronary artery. 3. History of mechanical aortic valve, on Coumadin. INR is subtherapeutic. We will increase the dose of Coumadin and let pharmacy make adjustments. 4. History of schizophrenia and bipolar disorder. 5. Hypertension. 6. Hyperlipidemia. 7. Narcolepsy. 8. Sleep apnea. 9. History of chronic obstructive pulmonary disease and asthma. 10.H/o Pacemaker PLAN: ECHO 55% ejf troponin neg inr 2.4 today home today. labs reviewed. Condition and treatment discussed with Dr. Rasmussen. He will decide on what type of cardiac workup to pursue. For details, please refer to the orders. Problems: Plan Plan of Care Problems Medical Problems: (1) Chest pain Status: Acute (2) Subtherapeutic international normalized ratio (INR) Status: Acute Comment Review of Relevant I have reviewed the following items yonathan (where applicable) has been applied. Labs Laboratory Tests Test 02/23/17 06:15 Prothrombin Time 25.0 SEC (11.7-14.0) Prothromb Time International Ratio 2.4 (0.8-1.1) Triglycerides Level 198 mg/dL (0-150) Cholesterol Level 176 mg/dL (0-200) LDL Cholesterol, Calculated 100 mg/dL (0-100) VLDL Cholesterol, Calculated 40 mg/dL (0-40) Non-HDL Cholesterol Calculated 140 mg/dL (0-129) HDL Cholesterol 36 mg/dL (40-60) Cholesterol/HDL Ratio 4.9 Thyroid Stimulating Hormone (TSH) 2.014 uIU/mL (0.358-3.74) Medications Current Medications Warfarin Sodium (Coumadin) 5 mg TuWeTh PO ; Start 02/23/17 at 16:00; Stop at 16:00; Status DC Warfarin Sodium (Coumadin) 6 mg QFRSASUMO PO ; Start 02/22/17 at 16:00; Stop 08/29 at 16:00; Status DC Warfarin Sodium (Coumadin) 7.5 mg 1X WARF ONCE PO Last administered on t 15:59; Start 02/22/17 at 16:00; Stop 02/22/17 at 16:01; Status DC Vitals/I & O Vital Sign - Last 24 Hours 02/22/17 02/22/17 02/22/17 02/22/17 11:00 15:00 19:50 20:00 Temp 97.9 98.3 97.7 97.9 98.3 97.7 Pulse 60 62 60 Resp 20 20 20 B/P (MAP) 114/64 (81) 111/56 (74) 126/74 (91) Pulse Ox 94 95 98 O2 Delivery Nasal Cannula Nasal Cannula Nasal Cannula Nasal Cannula O2 Flow Rate 2.0 2.0 2.0 2.0 02/22/17 02/22/17 02/22/17 02/22/17 20:39 20:40 21:39 22:50 Temp 98.0 98.0 Pulse 75 60 Resp 20 22 18 B/P (MAP) 126/74 133/77 (95) Pulse Ox 96 O2 Delivery Nasal Cannula O2 Flow Rate 2.0 02/23/17 02/23/17 02/23/17 02/23/17 01:59 02:08 02:59 03:05 Temp 97.5 97.5 Pulse 60 Resp 20 20 20 B/P (MAP) 121/61 (81) Pulse Ox 96 92 O2 Delivery Nasal Cannula Nasal Cannula O2 Flow Rate 1.0 2.0 02/23/17 02/23/17 02/23/17 02/23/17 07:25 07:55 09:07 09:08 Temp 97.8 97.8 Pulse 65 65 65 Resp 20 B/P (MAP) 120/70 (87) 119/66 119/66 Pulse Ox 95 O2 Delivery Nasal Cannula Room Air O2 Flow Rate 2.0 02/23/17 09:12 O2 Delivery Room Air Intake and Output 02/22/17 02/22/17 02/23/17 14:59 22:59 06:59 Intake Total 360 ml 650 ml 3560 ml Output Total 1000 ml 1300 ml 800 ml Balance -640 ml -650 ml 2760 ml NICOLE SMITH MD Feb 23, 2017 10:19
[2017-02-23 11:00] VITALS: BP 118/58
--- NOTE | 2017-02-23 15:19 | PDOC ---
Provider Note Provider Note Discharge summary dictated. #[id number] NICOLE SMITH MD Feb 23, 2017 15:19
[2017-02-23] MEDS ORDERED: WARFARIN 5 MG TABLET. PO SCH (16:00)
--- NOTE | 2017-02-24 00:02 | DS ---
DATE OF DISCHARGE: 02/23/2017 REASON FOR ADMISSION TO THE HOSPITAL: Chest pain. CONSULTATIONS: Dr. Delvalle. PROCEDURES DONE: Echocardiogram. HOSPITAL COURSE: The patient is a 56-year-old female, who has a history of prosthetic aortic valve/mechanical valve. She is on Coumadin, and she also had a history of pacemaker and cardiac stents in the past. Last time, she had a cardiac catheterization 2 years ago, shows patent stents. She had a stress test last year that was negative for ischemia. She came with chest pain. Cardiac enzymes and EKG was negative, seen by Cardiology. Echo was done, which shows a good left ventricular function. Valve is functioning well and the patient was chest pain-free and she was discharged. Her INR was low and subtherapeutic - it was 1.5, was given Lovenox and it was corrected to 2.4 and the patient was discharged. FINAL DIAGNOSES: 1. Chest pain, noncardiac GERD vs skeletomuscular at this time. 2. Prosthetic aortic valve/mechanical valve. 3. Subtherapeutic INR, on Coumadin. 4. History of cardiac stents, stable. Cardiac catheterization 2 years ago was negative for blockages. A stress test last year was negative. 5. Anxiety and depression. The patient was discharged home. DISCHARGE MEDICATIONS: See MRAD. DISCHARGE INSTRUCTIONS: Follow with INR in 1 week with PCP, Dr. West. NICOLE SMITH MD DR: ISAMAR/cori JOB#: [id number] / [id number] OLIVIA
== END 2017-02-23 11:30 | disposition home or self-care (01) | DRG 392 ==
LOC: ER 17:28 → 2 SOUTH 19:00
PROVIDERS: ADMIT Internal Medicine; ATTEND Internal Medicine
DX: K21.9 Gastro-esophageal reflux disease without esophagitis (principal); R07.89 Other chest pain; E78.5 Hyperlipidemia, unspecified; F20.9 Schizophrenia, unspecified; F31.9 Bipolar disorder, unspecified; F41.9 Anxiety disorder, unspecified; G47.30 Sleep apnea, unspecified; G47.419 Narcolepsy without cataplexy; I10 Essential (primary) hypertension; I25.10 Atherosclerotic heart disease of native coronary artery without angina pectoris; I48.91 Unspecified atrial fibrillation; J44.9 Chronic obstructive pulmonary disease, unspecified; M19.90 Unspecified osteoarthritis, unspecified site; R60.0 Localized edema; M25.512 Pain in left shoulder; M54.5 Low back pain; I25.2 Old myocardial infarction; Z79.01 Long term (current) use of anticoagulants; Z82.49 Family history of ischemic heart disease and other diseases of the circulatory system; Z95.2 Presence of prosthetic heart valve; Z95.0 Presence of cardiac pacemaker; Z95.5 Presence of coronary angioplasty implant and graft; Z90.49 Acquired absence of other specified parts of digestive tract; Z72.89 Other problems related to lifestyle; Z88.5 Allergy status to narcotic agent; Z88.0 Allergy status to penicillin; Z88.2 Allergy status to sulfonamides; Z88.6 Allergy status to analgesic agent; Z91.041 Radiographic dye allergy status; Z91.040 Latex allergy status; Z80.9 Family history of malignant neoplasm, unspecified; Z90.710 Acquired absence of both cervix and uterus
CPT/HCPCS: 36415; 71010; 80048; 80053; 80061; 83735; 83880; 84443; 84484; 85027; 85610; 85730; 93005; 93306; 94250; 94640; 94760; 96374; J1650; J3010; 99285-25

== ENCOUNTER 2017-07-02 20:42 | Emergency (ER) | payer OTHER ==
[~2017-07-02] VITALS: Ht 154.9 cm; Wt 85.7 kg
[~2017-07-02 20:42] MED LIST changes: +CETI10TA22 PO; +HYDR-971 PO; +LORA10TA3 PO; +LURA40TA PO; +METO-239 PO; -METO25TA9 PO; +MONT10TA6 PO; +WARF6TAB49 PO
[2017-07-02] MEDS ORDERED: traMADol 50 MG TABLET PO ONE (21:30)
--- NOTE | 2017-07-02 21:58 | PHYS DOC ---
Past Medical History Past Medical History: A-Fib, Anxiety, Bipolar, CVA, Hypertension, [place], Schizophrenia, Other Additional Past Medical Histor: HALLUCINATIONS, AORTIC VALVE DISORDERS, mi 1996 , kidney problems Past Surgical History: Cholecystectomy, Other Additional Past Surgical Histo: HERNIA REPAIR, AORTIC VALVE REPLACEMENT Alcohol Use: Rarely Drug Use: None Adult General Chief Complaint Chief Complaint: KNEE INJURY HPI HPI Patient is a 56 year old female presents the ED complaining of right hip and right knee pain 1 day. Patient states she was walking with her cane per her normal and accidentally tripped and fell. States she was able to get up on her own. has been able to walk with her cane since but has still been experiencing pain. Describes the pain as sharp. Rates the pain as 7/10. Denies head/neck injury, LOC, fever, vision changes, symptoms prior to fall, chest pain or shortness of breath. Review of Systems Review of Systems Constitutional: Denies fever or chills [] Eyes: Denies change in visual acuity, redness, or eye pain [] HENT: Denies nasal congestion or sore throat [] Respiratory: Denies cough or shortness of breath [] Cardiovascular: No additional information not addressed in HPI [] GI: Denies abdominal pain, nausea, vomiting, bloody stools or diarrhea [] : Denies dysuria or hematuria [] Musculoskeletal: Denies back pain. Complains of right hip and right knee pain.[] Integument: Denies rash or skin lesions [] Neurologic: Denies headache, focal weakness or sensory changes [] Endocrine: Denies polyuria or polydipsia [] Current Medications Current Medications Current Medications Medications (Trade) Dose Ordered Sig/Galilea Start Time Stop Time Status Last Admin Dose Admin Tramadol HCl (Ultram) 50 mg 1X ONCE 07/02/17 21:30 07/02/17 21:31 DC 07/02/17 21:22 50 MG Allergies Allergies Allergies Coded Allergies Type Severity Reaction Last Updated Verified Sulfa (Sulfonamide Antibiotics) Allergy Severe rash, tongue swelling 04/15/15 Yes Iodinated Contrast- Oral and IV Dye Allergy Intermediate rash 04/15/15 Yes Penicillins Allergy Intermediate Hives 04/15/15 Yes aspirin Allergy Intermediate Hives 04/15/15 Yes codeine Allergy Intermediate Hives; SEE COMMENT 06/08/15 Yes diphenhydramine HCl Allergy Intermediate rash 12/19/13 Yes latex Allergy Intermediate Rash 12/18/13 Yes Physical Exam Physical Exam Constitutional: Well developed, well nourished, no acute distress, non-toxic appearance. [] HENT: Normocephalic, atraumatic, bilateral external ears normal, oropharynx moist, no oral exudates, nose normal. [] Eyes: PERRLA, EOMI, conjunctiva normal, no discharge. [] Neck: Normal range of motion, no tenderness, supple, no stridor. [] Cardiovascular:Heart rate regular rhythm, no murmur [] Lungs & Thorax: Bilateral breath sounds clear to auscultation [] Abdomen: Bowel sounds normal, soft, no tenderness, no masses, no pulsatile masses. [] Skin: Warm, dry, no erythema, no rash. [] Back: No tenderness, no CVA tenderness. [] Extremities:MILD RIGHT LATERAL HIP AND RIGHT KNEE TENDERNESS. NO OVERLYING SKIN CHANGES OR SIGNS OF INFECTION., no cyanosis, no clubbing, ROM intact, no edema. [] Neurologic: Alert and oriented X 3, normal motor function, normal sensory function, no focal deficits noted. [] Psychologic: Affect normal, judgement normal, mood normal. [] Current Patient Data Vital Signs Vital Signs Date Time Temp Pulse Resp B/P (MAP) Pulse Ox O2 Delivery O2 Flow Rate FiO2 07/03/17 00:06 63 20 158/73 (101) 95 Room Air 07/02/17 21:15 98.3 98.3 EKG EKG [] Radiology/Procedures Radiology/Procedures PROCEDURE: CT PELVIS WO CONTRAST CT pelvis without Intravenous Contrast: History: Possible right hip fracture, fall, pain. Comparison: CT abdomen pelvis April 16, 2017. Technique: Noncontrast CT of pelvis was performed. Exposure: One or more of the following individualized dose reduction techniques were utilized for this examination: 1. Automated exposure control 2. Adjustment of the mA and/or kV according to patient size 3. Use of iterative reconstruction technique Findings: Evaluation of solid organs is limited by lack of intravenous contrast. Evaluation of enteric structures may be limited by lack of oral contrast. Visualized pelvic organs are without evidence of acute abnormality. Small infraumbilical fat-containing ventral hernia is seen. Uterus is absent. No acute pelvic fracture is identified. There is no evidence of hip fracture or dislocation. No gross hip joint effusion is seen. Impression: 1. No acute osseous traumatic injury identified in the pelvis. Electronically signed by: Efrem Keating MD (07/02/2017 11:47 PM) [facility][] PROCEDURE: KNEE RIGHT 3V Three-view right knee radiographs 07/02/2017 Clinical history: Right knee pain post fall earlier today. AP, lateral and oblique digital radiographs of the right knee were obtained. No fracture or dislocation of the right knee is seen. Mild degenerative changes are seen involving predominantly the medial compartment of the right knee. There is no radiographic evidence of a joint effusion. Impression: No fracture or dislocation of the right knee is seen. Course & Med Decision Making Course & Med Decision Making Pertinent Labs and Imaging studies reviewed. (See chart for details) []Discussed imaging with patient. Patient's pain improved. Vital stable, no acute distress. Patient able to ambulate with cane per her normal. Discussed follow-up with orthopedics next week if symptoms continue. Provided contact information/education. Discussed reasons to return to the ED. Patient understands and agrees with plan. Dragon Disclaimer Dragon Disclaimer This electronic medical record was generated, in whole or in part, using a voice recognition dictation system. Departure Departure Impression: Primary Impression: Knee injury Additional Impression: Hip injury Disposition: 01 HOME, SELF-CARE Condition: IMPROVED Referrals: RUBIO CASTELLANOS (PCP) ABEL HILL MD Patient Instructions: Hip Injury Problem Qualifiers PUSHPA MICHAEL Jul 02, 2017 21:58
--- NOTE | 2017-07-02 23:50 | RAD ---
CT pelvis without Intravenous Contrast: History: Possible right hip fracture, fall, pain. Comparison: CT abdomen pelvis April 16, 2017. Technique: Noncontrast CT of pelvis was performed. Exposure: One or more of the following individualized dose reduction techniques were utilized for this examination: 1. Automated exposure control 2. Adjustment of the mA and/or kV according to patient size 3. Use of iterative reconstruction technique Findings: Evaluation of solid organs is limited by lack of intravenous contrast. Evaluation of enteric structures may be limited by lack of oral contrast. Visualized pelvic organs are without evidence of acute abnormality. Small infraumbilical fat-containing ventral hernia is seen. Uterus is absent. No acute pelvic fracture is identified. There is no evidence of hip fracture or dislocation. No gross hip joint effusion is seen. Impression: 1. No acute osseous traumatic injury identified in the pelvis. Electronically signed by: Efrem Keating MD (07/02/2017 11:47 PM) [facility]
[2017-07-03 00:06] VITALS: BP 158/73
--- NOTE | 2017-07-03 09:17 | RAD ---
AP pelvis radiographs to include AP and lateral radiographs of the right hip 07/02/2017 Clinical history: Right hip pain post fall. An AP digital radiograph of the pelvis to include both hips was obtained. AP and lateral digital radiographs of the right hip were obtained. No pelvic bone fracture is seen. Both hips are intact. Specifically no fracture or dislocation of the right hip is seen. Mild degenerative changes are seen involving both hips. Calcifications are seen within the pelvis consistent with phleboliths. Impression: No fracture or dislocation is seen.
--- NOTE | 2017-07-03 09:18 | RAD ---
Three-view right knee radiographs 07/02/2017 Clinical history: Right knee pain post fall earlier today. AP, lateral and oblique digital radiographs of the right knee were obtained. No fracture or dislocation of the right knee is seen. Mild degenerative changes are seen involving predominantly the medial compartment of the right knee. There is no radiographic evidence of a joint effusion. Impression: No fracture or dislocation of the right knee is seen.
== END 2017-07-03 00:07 | disposition home or self-care (01) ==
LOC: ER 20:42
DX: S79.911A Unspecified injury of right hip, initial encounter (principal); S89.91XA Unspecified injury of right lower leg, initial encounter; I10 Essential (primary) hypertension; F20.9 Schizophrenia, unspecified; I25.2 Old myocardial infarction; I48.91 Unspecified atrial fibrillation; F41.9 Anxiety disorder, unspecified; F31.9 Bipolar disorder, unspecified; Z88.0 Allergy status to penicillin; Z86.73 Personal history of transient ischemic attack (TIA), and cerebral infarction without residual deficits; Z88.2 Allergy status to sulfonamides; Z88.5 Allergy status to narcotic agent; Z88.8 Allergy status to other drugs, medicaments and biological substances; Z91.041 Radiographic dye allergy status; Z88.6 Allergy status to analgesic agent; Z95.2 Presence of prosthetic heart valve; Z91.040 Latex allergy status; W01.0XXA Fall on same level from slipping, tripping and stumbling without subsequent striking against object, initial encounter; Y93.01 Activity, walking, marching and hiking; Y92.89 Other specified places as the place of occurrence of the external cause; Y99.8 Other external cause status
CPT/HCPCS: 72192; 73502; 73562; 99284-25

== ENCOUNTER 2017-09-27 18:56 | Emergency (ER) | payer OTHER ==
[2017-09-27 19:33] LABS: ADD MAN DIFF? NO
[2017-09-27] MEDS: KETOROLAC 30 MG/ML INJ. IV (19:33)
[2017-09-27 19:42] LABS: BASO % 0 % (0-3); EOS # 0.1 x10^3/uL (0.0-0.7); EOS % 2 % (0-3); HEMATOCRIT 45.4 % (36.0-47.0); LYMPH # 2.1 x10^3/uL (1.0-4.8); LYMPH % 26 % (24-48); MEAN CORPUSCULAR HEMOGLOBIN 29 pg (25-35); MEAN CORPUSCULAR HGB CONC 33 g/dL (31-37); MEAN CORPUSCULAR VOLUME 87 fL (79-100); MONO # 0.6 x10^3/uL (0.0-1.1); MONO % 8 % (0-9); NEUT % 64 % (31-73); PLATELET COUNT 207 x10^3/uL (140-400); RED BLOOD COUNT 5.22 x10^6/uL (3.50-5.40); RED CELL DISTRIBUTION WIDTH 15.5 % (11.5-14.5); WHITE BLOOD COUNT 7.9 x10^3/uL (4.0-11.0)
[2017-09-27 19:55] LABS: ANION GAP 13 (6-14); BLOOD UREA NITROGEN 22 mg/dL (7-20); BUN/CREATININE RATIO 31 (6-20); CALCIUM 8.7 mg/dL (8.5-10.1); CARBON DIOXIDE 29 mmol/L (21-32); CHLORIDE 103 mmol/L (98-107); CREATININE 0.7 mg/dL (0.6-1.0); GFR 86.2; GLUCOSE 91 mg/dL (70-99); POTASSIUM 3.8 mmol/L (3.5-5.1); SODIUM 145 mmol/L (136-145)
[2017-09-27 20:01] LABS: ALBUMIN 3.8 g/dL (3.4-5.0); ALK PHOS 90 U/L (46-116); ALT (SGPT) 25 U/L (14-59); AST (SGOT) 18 U/L (15-37); MAGNESIUM 2.3 mg/dL (1.8-2.4); TOTAL BILIRUBIN 0.2 mg/dL (0.2-1.0); TOTAL PROTEIN 7.5 g/dL (6.4-8.2)
[2017-09-27 20:06] LABS: TROPONINI < 0.017 ng/mL (0.000-0.055)
[2017-09-27 20:09] LABS: NT-PRO BNP 50 pg/mL (0-124)
[2017-09-27 20:09] LABS: CREATINE KINASE 42 U/L (26-192)
[2017-09-27 20:12] LABS: CKMB INDEX 1.2 % (0-4); CKMB MASS < 0.5 ng/mL (0.0-3.6)
[2017-09-27 20:27] LABS: INR 1.6 (0.8-1.1); PROTHROMBIN TIME PATIENT 18.3 SEC (11.7-14.0)
== END 2017-09-27 21:30 | disposition home or self-care (01) ==
LOC: ER 18:56
DX: R07.89 Other chest pain (principal); R11.2 Nausea with vomiting, unspecified; R06.02 Shortness of breath; F20.9 Schizophrenia, unspecified; I10 Essential (primary) hypertension; F31.9 Bipolar disorder, unspecified; I25.2 Old myocardial infarction; F41.9 Anxiety disorder, unspecified; I48.91 Unspecified atrial fibrillation; Z86.73 Personal history of transient ischemic attack (TIA), and cerebral infarction without residual deficits; Z95.0 Presence of cardiac pacemaker; Z95.2 Presence of prosthetic heart valve; Z79.01 Long term (current) use of anticoagulants; Z90.49 Acquired absence of other specified parts of digestive tract; Z88.2 Allergy status to sulfonamides; Z88.0 Allergy status to penicillin; Z88.5 Allergy status to narcotic agent; Z88.6 Allergy status to analgesic agent; Z91.041 Radiographic dye allergy status; Z91.040 Latex allergy status
CPT/HCPCS: 36415; 71045; 80053; 82553; 83735; 83880; 84484; 85025; 85610; 93005; 96372; 96374; 99285-25; J1650; J1885

== ENCOUNTER 2017-10-15 01:53 | Inpatient (IN) | payer OTHER ==
[2017-10-15] MEDS: NITROGLYCERIN SUBLINGUAL 0.4 MG BOTTLE OF 25. SL ×2 (02:10→02:34)
[2017-10-15] MEDS ORDERED: NITROGLYCERIN SUBLINGUAL 0.4 MG BOTTLE OF 25. SL ×3 (02:10→10:00)
[2017-10-15 02:36] LABS: ADD MAN DIFF? NO
[2017-10-15 02:39] LABS: BASO # 0.1 x10^3/uL (0.0-0.2); BASO % 1 % (0-3); EOS # 0.2 x10^3/uL (0.0-0.7); EOS % 2 % (0-3); HEMATOCRIT 40.3 % (36.0-47.0); HEMOGLOBIN 13.8 g/dL (12.0-15.5); LYMPH # 2.4 x10^3/uL (1.0-4.8); LYMPH % 29 % (24-48); MEAN CORPUSCULAR HEMOGLOBIN 29 pg (25-35); MEAN CORPUSCULAR HGB CONC 34 g/dL (31-37); MEAN CORPUSCULAR VOLUME 85 fL (79-100); MONO # 0.7 x10^3/uL (0.0-1.1); MONO % 9 % (0-9); NEUT # 4.9 x10^3uL (1.8-7.7); NEUT % 60 % (31-73); PLATELET COUNT 171 x10^3/uL (140-400); RED BLOOD COUNT 4.75 x10^6/uL (3.50-5.40); RED CELL DISTRIBUTION WIDTH 15.2 % (11.5-14.5); WHITE BLOOD COUNT 8.2 x10^3/uL (4.0-11.0)
[2017-10-15] MEDS: fentaNYL PF VIAL 100 MCG/2 ML VIAL IV ×5 (02:54→21:09)
[2017-10-15 03:18] LABS: ANION GAP 8 (6-14); BLOOD UREA NITROGEN 21 mg/dL (7-20); CALCIUM 8.5 mg/dL (8.5-10.1); CARBON DIOXIDE 29 mmol/L (21-32); CHLORIDE 104 mmol/L (98-107); CREATININE 0.7 mg/dL (0.6-1.0); GFR 86.2; GLUCOSE 131 mg/dL (70-99); SODIUM 141 mmol/L (136-145)
[2017-10-15 03:28] LABS: TROPONINI < 0.017 ng/mL (0.000-0.055)
[2017-10-15] MEDS: POTASSIUM CHLORIDE 20 MEQ TABLET.ER. PO ×4 (03:41→20:57)
[2017-10-15] MEDS ORDERED: ONDANSETRON PF 4 MG/2 ML VIAL. IV (04:00)
[2017-10-15] MEDS ORDERED: ACETAMINOPHEN 325 MG TABLET. PO (04:00)
[2017-10-15] MEDS ORDERED: ALBUTEROL SULFATE 2.5 MG/3 ML NEBU. NEB (10:00)
[2017-10-15] MEDS ORDERED: PROCHLORPERAZINE 25 MG SUPP.RECT. RC (10:00)
[2017-10-15 10:29] LABS: CHOLESTEROL 191 mg/dL (0-200); HDLC 38 mg/dL (40-60); LDLC 112 mg/dL (0-100); NON-HDL CHOLESTEROL 153 mg/dL (0-129); TRIGLYCERIDES 204 mg/dL (0-150); VLDLC 41 mg/dL (0-40)
[2017-10-15] MEDS ORDERED: MAG HYDROX/ALUMINUM HYD/SIMETH 30 ML ORAL.SUSP PO (10:30)
[2017-10-15 10:37] LABS: THYROID STIM HORMONE (TSH) 7.978 uIU/mL (0.358-3.74)
[2017-10-15 10:50] LABS: TROPONINI < 0.017 ng/mL (0.000-0.055)
[2017-10-15] MEDS: DICLOFENAC SODIUM 1% TOPICAL GEL 100GM TUBE. TP ×2 (11:00→21:00)
[2017-10-15] MEDS: FLUTICASONE 50MCG/NASAL SPRAY 16GM BOTTLE. NS ×2 (11:00→20:56)
[2017-10-15] MEDS: MONTELUKAST SODIUM 10 MG TABLET. PO (11:16)
[2017-10-15] MEDS: PANTOPRAZOLE 40 MG TABLET.DR. PO (11:16)
[2017-10-15] MEDS: PREGABALIN 50 MG CAPSULE PO ×2 (11:16→20:57)
[2017-10-15] MEDS: CETIRIZINE HCL 10 MG TABLET. PO (11:16)
[2017-10-15] MEDS: FLUoxetine HCL 20 MG CAPSULE PO (11:16)
[2017-10-15] MEDS: BENZTROPINE MESYLATE 1 MG TABLET. PO ×2 (11:16→20:56)
[2017-10-15] MEDS: metroNIDAZOLE 500 MG TABLET PO ×2 (11:16→21:07)
[2017-10-15] MEDS: METOPROLOL TART IMMED RELEASE 25 MG TABLET. PO ×2 (11:17→20:56)
[2017-10-15] MEDS: DIVALPROEX EXTENDED RELEASE 500 MG TAB.ER.24H. PO ×2 (11:17→20:57)
[2017-10-15] MEDS: LISINOPRIL 20 MG TABLET PO (11:17)
[2017-10-15 16:07] LABS: INR 1.5 (0.8-1.1); PROTHROMBIN TIME PATIENT 17.3 SEC (11.7-14.0)
[2017-10-15 16:19] LABS: TROPONINI < 0.017 ng/mL (0.000-0.055)
[2017-10-15] MEDS: WARFARIN 5 MG TABLET. PO (17:17)
[2017-10-15] MEDS: ATORVASTATIN CALCIUM 20 MG TABLET PO (20:56)
[2017-10-15] MEDS: QUEtiapine 25 MG TABLET. PO (20:56)
[2017-10-15] MEDS: OLANZapine 5 MG TABLET PO (20:57)
[2017-10-15] MEDS: METHYLPHENIDATE HCL 5 MG TABLET PO (20:57)
[2017-10-15] MEDS: traMADol 50 MG TABLET PO (20:58)
[2017-10-15] MEDS: LURASIDONE 40 MG TABLET. PO (21:00)
[2017-10-15] MEDS ORDERED: ATORVASTATIN CALCIUM 10 MG TABLET. PO (21:00)
[2017-10-16 05:57] LABS: ADD MAN DIFF? NO
[2017-10-16 06:15] LABS: BASO # 0.1 x10^3/uL (0.0-0.2); BASO % 1 % (0-3); EOS # 0.2 x10^3/uL (0.0-0.7); EOS % 3 % (0-3); HEMATOCRIT 38.9 % (36.0-47.0); HEMOGLOBIN 12.9 g/dL (12.0-15.5); LYMPH % 34 % (24-48); MEAN CORPUSCULAR HEMOGLOBIN 29 pg (25-35); MEAN CORPUSCULAR HGB CONC 33 g/dL (31-37); MEAN CORPUSCULAR VOLUME 87 fL (79-100); MONO # 0.5 x10^3/uL (0.0-1.1); MONO % 9 % (0-9); NEUT # 3.1 x10^3uL (1.8-7.7); NEUT % 53 % (31-73); PLATELET COUNT 167 x10^3/uL (140-400); RED CELL DISTRIBUTION WIDTH 15.7 % (11.5-14.5); WHITE BLOOD COUNT 5.8 x10^3/uL (4.0-11.0)
[2017-10-16 06:23] LABS: ALBUMIN 2.9 g/dL (3.4-5.0); ALBUMIN/GLOBULIN RATIO 0.8 (1.0-1.7); ALK PHOS 81 U/L (46-116); ALT (SGPT) 44 U/L (14-59); ANION GAP 7 (6-14); AST (SGOT) 25 U/L (15-37); BLOOD UREA NITROGEN 18 mg/dL (7-20); BUN/CREATININE RATIO 30 (6-20); CALCIUM 9.2 mg/dL (8.5-10.1); CARBON DIOXIDE 26 mmol/L (21-32); CHLORIDE 107 mmol/L (98-107); CREATININE 0.6 mg/dL (0.6-1.0); GLUCOSE 106 mg/dL (70-99); POTASSIUM 4.2 mmol/L (3.5-5.1); SODIUM 140 mmol/L (136-145); TOTAL BILIRUBIN 0.2 mg/dL (0.2-1.0); TOTAL PROTEIN 6.4 g/dL (6.4-8.2)
[2017-10-16] MEDS: metroNIDAZOLE 500 MG TABLET PO ×3 (06:27→22:23)
[2017-10-16] MEDS: LEVOTHYROXINE 25 MCG TABLET. PO (06:29)
[2017-10-16] MEDS: DICLOFENAC SODIUM 1% TOPICAL GEL 100GM TUBE. TP ×2 (09:00→21:00)
[2017-10-16] MEDS: FLUTICASONE 50MCG/NASAL SPRAY 16GM BOTTLE. NS ×2 (09:00→21:10)
[2017-10-16] MEDS: PANTOPRAZOLE 40 MG TABLET.DR. PO (09:06)
[2017-10-16] MEDS: CETIRIZINE HCL 10 MG TABLET. PO (09:06)
[2017-10-16] MEDS: FLUoxetine HCL 20 MG CAPSULE PO (09:06)
[2017-10-16] MEDS: MONTELUKAST SODIUM 10 MG TABLET. PO (09:06)
[2017-10-16] MEDS: POTASSIUM CHLORIDE 20 MEQ TABLET.ER. PO ×2 (09:06→21:09)
[2017-10-16] MEDS: LISINOPRIL 20 MG TABLET PO (09:07)
[2017-10-16] MEDS: BENZTROPINE MESYLATE 1 MG TABLET. PO ×2 (09:07→21:10)
[2017-10-16] MEDS: PREGABALIN 50 MG CAPSULE PO ×2 (09:07→21:09)
[2017-10-16] MEDS: METOPROLOL TART IMMED RELEASE 25 MG TABLET. PO ×2 (09:08→21:00)
[2017-10-16] MEDS: DIVALPROEX EXTENDED RELEASE 500 MG TAB.ER.24H. PO ×2 (09:16→21:09)
[2017-10-16 09:27] LABS: INR 1.6 (0.8-1.1); PROTHROMBIN TIME PATIENT 18.4 SEC (11.7-14.0)
[2017-10-16] MEDS: WARFARIN 5 MG TABLET. PO (15:42)
[2017-10-16] MEDS: LURASIDONE 40 MG TABLET. PO (21:00)
[2017-10-16] MEDS: OLANZapine 5 MG TABLET PO (21:09)
[2017-10-16] MEDS: ATORVASTATIN CALCIUM 20 MG TABLET PO (21:10)
[2017-10-16] MEDS: METHYLPHENIDATE HCL 5 MG TABLET PO (21:10)
[2017-10-16] MEDS: traMADol 50 MG TABLET PO (21:10)
[2017-10-16] MEDS: QUEtiapine 25 MG TABLET. PO (21:10)
[2017-10-16] MEDS: LACTOBACILLUS RHAMNOSUS GG 1 CAPSULE. PO (22:23)
[2017-10-17 05:09] LABS: ADD MAN DIFF? NO
[2017-10-17 05:25] LABS: BASO % 1 % (0-3); EOS # 0.2 x10^3/uL (0.0-0.7); EOS % 3 % (0-3); HEMATOCRIT 37.4 % (36.0-47.0); HEMOGLOBIN 12.6 g/dL (12.0-15.5); LYMPH % 33 % (24-48); MEAN CORPUSCULAR HEMOGLOBIN 29 pg (25-35); MEAN CORPUSCULAR HGB CONC 34 g/dL (31-37); MEAN CORPUSCULAR VOLUME 87 fL (79-100); MONO # 0.5 x10^3/uL (0.0-1.1); MONO % 8 % (0-9); NEUT # 3.3 x10^3uL (1.8-7.7); NEUT % 56 % (31-73); PLATELET COUNT 156 x10^3/uL (140-400); RED BLOOD COUNT 4.33 x10^6/uL (3.50-5.40); RED CELL DISTRIBUTION WIDTH 15.1 % (11.5-14.5); WHITE BLOOD COUNT 5.9 x10^3/uL (4.0-11.0)
[2017-10-17 05:51] LABS: ALBUMIN/GLOBULIN RATIO 0.9 (1.0-1.7); ALK PHOS 78 U/L (46-116); ALT (SGPT) 41 U/L (14-59); ANION GAP 8 (6-14); AST (SGOT) 22 U/L (15-37); BLOOD UREA NITROGEN 19 mg/dL (7-20); BUN/CREATININE RATIO 27 (6-20); CALCIUM 9.3 mg/dL (8.5-10.1); CARBON DIOXIDE 27 mmol/L (21-32); CHLORIDE 103 mmol/L (98-107); CREATININE 0.7 mg/dL (0.6-1.0); GFR 86.2; GLUCOSE 102 mg/dL (70-99); POTASSIUM 3.9 mmol/L (3.5-5.1); SODIUM 138 mmol/L (136-145); TOTAL BILIRUBIN 0.3 mg/dL (0.2-1.0); TOTAL PROTEIN 6.3 g/dL (6.4-8.2)
[2017-10-17] MEDS: metroNIDAZOLE 500 MG TABLET PO ×2 (06:12→14:15)
[2017-10-17] MEDS: LEVOTHYROXINE 25 MCG TABLET. PO (06:12)
[2017-10-17 07:09] LABS: INR 2.3 (0.8-1.1); PROTHROMBIN TIME PATIENT 24.1 SEC (11.7-14.0)
[2017-10-17] MEDS: FLUTICASONE 50MCG/NASAL SPRAY 16GM BOTTLE. NS (08:30)
[2017-10-17] MEDS: DICLOFENAC SODIUM 1% TOPICAL GEL 100GM TUBE. TP (08:31)
[2017-10-17] MEDS: BENZTROPINE MESYLATE 1 MG TABLET. PO (08:32)
[2017-10-17] MEDS: PANTOPRAZOLE 40 MG TABLET.DR. PO (08:32)
[2017-10-17] MEDS: MONTELUKAST SODIUM 10 MG TABLET. PO (08:32)
[2017-10-17] MEDS: DIVALPROEX EXTENDED RELEASE 500 MG TAB.ER.24H. PO (08:32)
[2017-10-17] MEDS: POTASSIUM CHLORIDE 20 MEQ TABLET.ER. PO (08:33)
[2017-10-17] MEDS: CETIRIZINE HCL 10 MG TABLET. PO (08:33)
[2017-10-17] MEDS: FLUoxetine HCL 20 MG CAPSULE PO (08:33)
[2017-10-17] MEDS: PREGABALIN 50 MG CAPSULE PO (08:33)
[2017-10-17] MEDS: METOPROLOL TART IMMED RELEASE 25 MG TABLET. PO (08:33)
[2017-10-17] MEDS: LACTOBACILLUS RHAMNOSUS GG 1 CAPSULE. PO (08:33)
[2017-10-17] MEDS: LISINOPRIL 20 MG TABLET PO (08:34)
[2017-10-17] MEDS ORDERED: WARFARIN 3 MG TABLET. PO (16:00)
[2017-10-17] MEDS ORDERED: WARFARIN 4 MG TABLET. PO (16:00)
== END 2017-10-17 16:00 | disposition home or self-care (01) | DRG 392 ==
LOC: ER 01:53 → 2 NORTH 03:45
DX: K52.9 Noninfective gastroenteritis and colitis, unspecified (principal); F20.9 Schizophrenia, unspecified; R07.89 Other chest pain; I25.10 Atherosclerotic heart disease of native coronary artery without angina pectoris; E87.6 Hypokalemia; E78.5 Hyperlipidemia, unspecified; I10 Essential (primary) hypertension; K21.9 Gastro-esophageal reflux disease without esophagitis; J44.9 Chronic obstructive pulmonary disease, unspecified; F41.9 Anxiety disorder, unspecified; M19.90 Unspecified osteoarthritis, unspecified site; F31.9 Bipolar disorder, unspecified; E03.9 Hypothyroidism, unspecified; G47.419 Narcolepsy without cataplexy; Z95.2 Presence of prosthetic heart valve; Z90.710 Acquired absence of both cervix and uterus; Z90.49 Acquired absence of other specified parts of digestive tract; Z87.891 Personal history of nicotine dependence; Z83.3 Family history of diabetes mellitus; Z82.49 Family history of ischemic heart disease and other diseases of the circulatory system; Z88.0 Allergy status to penicillin; Z88.2 Allergy status to sulfonamides; Z88.8 Allergy status to other drugs, medicaments and biological substances; Z88.6 Allergy status to analgesic agent; Z91.041 Radiographic dye allergy status; Z91.040 Latex allergy status; Z95.0 Presence of cardiac pacemaker; Z85.9 Personal history of malignant neoplasm, unspecified; Z79.01 Long term (current) use of anticoagulants; Z79.899 Other long term (current) drug therapy; I25.2 Old myocardial infarction
CPT/HCPCS: 36415; 71045; 74018; 80048; 80053; 80061; 84443; 84484; 85025; 85610; 93005; 93306; 96374; 99285; 99285-25; J1650; J3010

== ENCOUNTER 2017-10-24 23:17 | Inpatient (IN) | payer OTHER ==
[2017-10-24 23:49] LABS: ADD MAN DIFF? NO
[2017-10-24 23:51] LABS: BASO # 0.1 x10^3/uL (0.0-0.2); BASO % 1 % (0-3); EOS # 0.2 x10^3/uL (0.0-0.7); EOS % 2 % (0-3); HEMATOCRIT 40.3 % (36.0-47.0); HEMOGLOBIN 13.9 g/dL (12.0-15.5); LYMPH # 2.4 x10^3/uL (1.0-4.8); LYMPH % 28 % (24-48); MEAN CORPUSCULAR HEMOGLOBIN 29 pg (25-35); MEAN CORPUSCULAR HGB CONC 35 g/dL (31-37); MEAN CORPUSCULAR VOLUME 85 fL (79-100); MONO # 0.6 x10^3/uL (0.0-1.1); MONO % 7 % (0-9); NEUT # 5.4 x10^3uL (1.8-7.7); NEUT % 62 % (31-73); PLATELET COUNT 208 x10^3/uL (140-400); RED BLOOD COUNT 4.73 x10^6/uL (3.50-5.40); RED CELL DISTRIBUTION WIDTH 14.9 % (11.5-14.5); WHITE BLOOD COUNT 8.6 x10^3/uL (4.0-11.0)
[2017-10-25 00:02] LABS: INR 2.2 (0.8-1.1); PROTHROMBIN TIME PATIENT 23.1 SEC (11.7-14.0)
[2017-10-25 00:03] LABS: PARTIAL THROMBOPLASTIN TIME 44 SEC (24-38)
[2017-10-25 00:04] LABS: ANION GAP 10 (6-14); BLOOD UREA NITROGEN 19 mg/dL (7-20); BUN/CREATININE RATIO 24 (6-20); CALCIUM 8.9 mg/dL (8.5-10.1); CARBON DIOXIDE 29 mmol/L (21-32); CHLORIDE 103 mmol/L (98-107); CREATININE 0.8 mg/dL (0.6-1.0); GFR 73.9; GLUCOSE 120 mg/dL (70-99); POTASSIUM 3.4 mmol/L (3.5-5.1); SODIUM 142 mmol/L (136-145)
[2017-10-25 00:11] LABS: ALBUMIN 3.5 g/dL (3.4-5.0); ALBUMIN/GLOBULIN RATIO 1.1 (1.0-1.7); ALK PHOS 91 U/L (46-116); ALT (SGPT) 58 U/L (14-59); AST (SGOT) 31 U/L (15-37); LIPASE 81 U/L (73-393); MAGNESIUM 2.1 mg/dL (1.8-2.4); TOTAL BILIRUBIN 0.3 mg/dL (0.2-1.0); TOTAL PROTEIN 6.8 g/dL (6.4-8.2)
[2017-10-25 00:12] LABS: TROPONINI < 0.017 ng/mL (0.000-0.055)
[2017-10-25 00:15] LABS: NT-PRO BNP 93 pg/mL (0-124)
[2017-10-25] MEDS: MORPHINE SULFATE 10 MG/ML VIAL. IV ×2 (00:22)
[2017-10-25] MEDS: MORPHINE SULFATE 4 MG/ML DISP.SYRIN. IV ×4 (01:40→03:51)
[2017-10-25] MEDS: ONDANSETRON PF 4 MG/2 ML VIAL. IV ×2 (02:46)
[2017-10-25 05:10] LABS: TROPONINI < 0.017 ng/mL (0.000-0.055)
[2017-10-25 07:13] LABS: TROPONINI < 0.017 ng/mL (0.000-0.055)
[2017-10-25] MEDS ORDERED: PROCHLORPERAZINE 25 MG SUPP.RECT. RC ×2 (08:00)
[2017-10-25] MEDS ORDERED: ALBUTEROL SULFATE 2.5 MG/3 ML NEBU. NEB ×2 (08:00)
[2017-10-25] MEDS ORDERED: NITROGLYCERIN SUBLINGUAL 0.4 MG BOTTLE OF 25. SL ×2 (08:00)
[2017-10-25] MEDS ORDERED: MAG HYDROX/ALUMINUM HYD/SIMETH 30 ML ORAL.SUSP PO ×2 (08:30)
[2017-10-25] MEDS: DIVALPROEX EXTENDED RELEASE 500 MG TAB.ER.24H. PO ×4 (09:05→21:22)
[2017-10-25] MEDS: FLUoxetine HCL 20 MG CAPSULE PO ×2 (09:05)
[2017-10-25] MEDS: BENZTROPINE MESYLATE 1 MG TABLET. PO ×4 (09:05→21:23)
[2017-10-25] MEDS: METOPROLOL TART IMMED RELEASE 25 MG TABLET. PO ×4 (09:05→21:22)
[2017-10-25] MEDS: CETIRIZINE HCL 10 MG TABLET. PO ×2 (09:06)
[2017-10-25] MEDS: POTASSIUM CHLORIDE 20 MEQ TABLET.ER. PO ×4 (09:06→21:21)
[2017-10-25] MEDS: LACTOBACILLUS RHAMNOSUS GG 1 CAPSULE. PO ×4 (09:06→21:23)
[2017-10-25] MEDS: MONTELUKAST SODIUM 10 MG TABLET. PO ×2 (09:06)
[2017-10-25] MEDS: metroNIDAZOLE 500 MG TABLET PO ×6 (09:06→23:42)
[2017-10-25] MEDS: PREGABALIN 50 MG CAPSULE PO ×4 (09:06→21:22)
[2017-10-25] MEDS: LISINOPRIL 20 MG TABLET PO ×2 (12:20)
[2017-10-25] MEDS: LEVOTHYROXINE 25 MCG TABLET. PO ×2 (12:20)
[2017-10-25] MEDS: PANTOPRAZOLE 40 MG TABLET.DR. PO ×2 (12:20)
[2017-10-25] MEDS: DICLOFENAC SODIUM 1% TOPICAL GEL 100GM TUBE. TP ×4 (12:21→21:24)
[2017-10-25] MEDS: WARFARIN 4 MG TABLET. PO ×2 (16:58)
[2017-10-25] MEDS: FLUTICASONE 50MCG/NASAL SPRAY 16GM BOTTLE. NS ×4 (16:59→21:24)
[2017-10-25] MEDS ORDERED: ATORVASTATIN CALCIUM 10 MG TABLET. PO ×2 (21:00)
[2017-10-25] MEDS: OLANZapine 5 MG TABLET PO ×2 (21:21)
[2017-10-25] MEDS: QUEtiapine 25 MG TABLET. PO ×2 (21:21)
[2017-10-25] MEDS: ATORVASTATIN CALCIUM 20 MG TABLET PO ×2 (21:22)
[2017-10-25] MEDS: LURASIDONE 40 MG TABLET. PO ×2 (21:23)
[2017-10-25] MEDS: traMADol 50 MG TABLET PO ×2 (21:24)
[2017-10-25] MEDS: METHYLPHENIDATE HCL 5 MG TABLET PO ×2 (23:42)
[2017-10-26 04:22] LABS: ADD MAN DIFF? NO
[2017-10-26 04:33] LABS: BASO % 0 % (0-3); EOS # 0.1 x10^3/uL (0.0-0.7); EOS % 2 % (0-3); HEMATOCRIT 35.6 % (36.0-47.0); LYMPH # 2.6 x10^3/uL (1.0-4.8); LYMPH % 36 % (24-48); MEAN CORPUSCULAR HEMOGLOBIN 29 pg (25-35); MEAN CORPUSCULAR HGB CONC 34 g/dL (31-37); MEAN CORPUSCULAR VOLUME 87 fL (79-100); MONO # 0.6 x10^3/uL (0.0-1.1); MONO % 9 % (0-9); NEUT # 3.8 x10^3uL (1.8-7.7); NEUT % 53 % (31-73); PLATELET COUNT 200 x10^3/uL (140-400); RED BLOOD COUNT 4.08 x10^6/uL (3.50-5.40); RED CELL DISTRIBUTION WIDTH 15.3 % (11.5-14.5); WHITE BLOOD COUNT 7.2 x10^3/uL (4.0-11.0)
[2017-10-26 05:00] LABS: ANION GAP 7 (6-14); BLOOD UREA NITROGEN 20 mg/dL (7-20); CALCIUM 8.2 mg/dL (8.5-10.1); CARBON DIOXIDE 29 mmol/L (21-32); CHLORIDE 103 mmol/L (98-107); GFR 57.1; GLUCOSE 98 mg/dL (70-99); POTASSIUM 3.9 mmol/L (3.5-5.1); SODIUM 139 mmol/L (136-145)
[2017-10-26] MEDS: metroNIDAZOLE 500 MG TABLET PO ×6 (06:00→20:33)
[2017-10-26] MEDS: LEVOTHYROXINE 25 MCG TABLET. PO ×2 (06:01)
[2017-10-26] MEDS: DICLOFENAC SODIUM 1% TOPICAL GEL 100GM TUBE. TP ×4 (09:28→20:36)
[2017-10-26] MEDS: FLUTICASONE 50MCG/NASAL SPRAY 16GM BOTTLE. NS ×4 (09:28→20:35)
[2017-10-26 09:40] LABS: INR 2.9 (0.8-1.1); PROTHROMBIN TIME PATIENT 28.8 SEC (11.7-14.0)
[2017-10-26] MEDS: REGADENOSON 0.4 MG/5 ML DISP.SYRIN. IV ×2 (09:51)
[2017-10-26] MEDS: LACTOBACILLUS RHAMNOSUS GG 1 CAPSULE. PO ×4 (13:43→20:34)
[2017-10-26] MEDS: MONTELUKAST SODIUM 10 MG TABLET. PO ×2 (13:43)
[2017-10-26] MEDS: DIVALPROEX EXTENDED RELEASE 500 MG TAB.ER.24H. PO ×4 (13:44→20:35)
[2017-10-26] MEDS: FLUoxetine HCL 20 MG CAPSULE PO ×2 (13:44)
[2017-10-26] MEDS: POTASSIUM CHLORIDE 20 MEQ TABLET.ER. PO ×4 (13:44→20:35)
[2017-10-26] MEDS: PREGABALIN 50 MG CAPSULE PO ×4 (13:44→20:34)
[2017-10-26] MEDS: PANTOPRAZOLE 40 MG TABLET.DR. PO ×2 (13:44)
[2017-10-26] MEDS: CETIRIZINE HCL 10 MG TABLET. PO ×2 (13:45)
[2017-10-26] MEDS: LISINOPRIL 20 MG TABLET PO ×2 (13:45)
[2017-10-26] MEDS: BENZTROPINE MESYLATE 1 MG TABLET. PO ×4 (13:46→20:33)
[2017-10-26] MEDS: METOPROLOL TART IMMED RELEASE 25 MG TABLET. PO ×4 (13:46→20:36)
[2017-10-26] MEDS: IV NORMAL SALINE 1000ML BAG 1,000 ML IV ×2 (16:09)
[2017-10-26] MEDS: WARFARIN 4 MG TABLET. PO ×2 (16:09)
[2017-10-26] MEDS: QUEtiapine 25 MG TABLET. PO ×2 (20:33)
[2017-10-26] MEDS: ATORVASTATIN CALCIUM 20 MG TABLET PO ×2 (20:33)
[2017-10-26] MEDS: OLANZapine 5 MG TABLET PO ×2 (20:34)
[2017-10-26] MEDS: traMADol 50 MG TABLET PO ×2 (20:34)
[2017-10-26] MEDS: LURASIDONE 40 MG TABLET. PO ×2 (20:35)
[2017-10-26] MEDS: METHYLPHENIDATE HCL 5 MG TABLET PO ×2 (20:35)
[2017-10-27] MEDS: metroNIDAZOLE 500 MG TABLET PO ×4 (06:03→15:03)
[2017-10-27] MEDS: LEVOTHYROXINE 25 MCG TABLET. PO ×2 (06:03)
[2017-10-27] MEDS: DIVALPROEX EXTENDED RELEASE 500 MG TAB.ER.24H. PO ×2 (08:25)
[2017-10-27] MEDS: FLUoxetine HCL 20 MG CAPSULE PO ×2 (08:25)
[2017-10-27] MEDS: BENZTROPINE MESYLATE 1 MG TABLET. PO ×2 (08:25)
[2017-10-27] MEDS: POTASSIUM CHLORIDE 20 MEQ TABLET.ER. PO ×2 (08:25)
[2017-10-27] MEDS: CETIRIZINE HCL 10 MG TABLET. PO ×2 (08:26)
[2017-10-27] MEDS: LACTOBACILLUS RHAMNOSUS GG 1 CAPSULE. PO ×2 (08:26)
[2017-10-27] MEDS: PANTOPRAZOLE 40 MG TABLET.DR. PO ×2 (08:26)
[2017-10-27] MEDS: PREGABALIN 50 MG CAPSULE PO ×2 (08:26)
[2017-10-27] MEDS: MONTELUKAST SODIUM 10 MG TABLET. PO ×2 (08:26)
[2017-10-27] MEDS: METOPROLOL TART IMMED RELEASE 25 MG TABLET. PO ×2 (08:27)
[2017-10-27] MEDS: LISINOPRIL 20 MG TABLET PO ×2 (08:27)
[2017-10-27] MEDS: DICLOFENAC SODIUM 1% TOPICAL GEL 100GM TUBE. TP ×2 (08:28)
[2017-10-27] MEDS: FLUTICASONE 50MCG/NASAL SPRAY 16GM BOTTLE. NS ×2 (08:28)
== END 2017-10-27 16:15 | disposition home or self-care (01) | DRG 392 ==
LOC: ER 23:17 → 5 SOUTH 23:51
DX: K21.9 Gastro-esophageal reflux disease without esophagitis (principal); F20.9 Schizophrenia, unspecified; E03.9 Hypothyroidism, unspecified; G47.419 Narcolepsy without cataplexy; I48.91 Unspecified atrial fibrillation; E78.5 Hyperlipidemia, unspecified; F41.9 Anxiety disorder, unspecified; G89.29 Other chronic pain; F31.9 Bipolar disorder, unspecified; I10 Essential (primary) hypertension; I25.10 Atherosclerotic heart disease of native coronary artery without angina pectoris; I25.2 Old myocardial infarction; I35.9 Nonrheumatic aortic valve disorder, unspecified; J44.9 Chronic obstructive pulmonary disease, unspecified; Z79.01 Long term (current) use of anticoagulants; Z83.3 Family history of diabetes mellitus; Z86.73 Personal history of transient ischemic attack (TIA), and cerebral infarction without residual deficits; Z87.891 Personal history of nicotine dependence; Z88.6 Allergy status to analgesic agent; Z90.710 Acquired absence of both cervix and uterus; Z95.2 Presence of prosthetic heart valve; Z95.5 Presence of coronary angioplasty implant and graft
CPT/HCPCS: 36415; 71045; 78452; 80048; 80053; 83690; 83735; 83880; 84484; 85025; 85610; 85730; 93005; 93017; 94618; 96374; 96375; 96376; 97161-GP; 97165-GO; 99285; 99285-25; A9500; J2270; J2405; J2785; J7030

== ENCOUNTER 2017-11-15 22:13 | Emergency (ER) | payer OTHER ==
[2017-11-15] MEDS: METOCLOPRAMIDE HCL 10 MG/2 ML VIAL. IV (23:40)
[2017-11-15] MEDS: DEXAMETHASONE SOD PHOS 20 MG/5 ML VIAL. IV (23:40)
[2017-11-15] MEDS: IV NORMAL SALINE 1000ML BAG 1,000 ML IV (23:40)
== END 2017-11-16 02:04 | disposition home or self-care (01) ==
LOC: ER 11-16 02:04
DX: G43.909 Migraine, unspecified, not intractable, without status migrainosus (principal); R07.89 Other chest pain; F41.9 Anxiety disorder, unspecified; F31.9 Bipolar disorder, unspecified; F20.9 Schizophrenia, unspecified; I10 Essential (primary) hypertension; I25.2 Old myocardial infarction; I48.91 Unspecified atrial fibrillation; Z95.2 Presence of prosthetic heart valve; Z86.73 Personal history of transient ischemic attack (TIA), and cerebral infarction without residual deficits; Z79.01 Long term (current) use of anticoagulants; Z88.0 Allergy status to penicillin; Z88.2 Allergy status to sulfonamides
CPT/HCPCS: 70450; 93005; 96361; 96374; 96375; 99284-25; J1100; J2060; J2765; J7030

== ENCOUNTER 2017-12-03 14:24 | Inpatient (IN) | payer OTHER ==
[2017-12-03 14:58] LABS: POC GLUCOSE 127 mg/dL (70-99)
[2017-12-03 15:21] LABS: ADD MAN DIFF? NO
[2017-12-03 15:23] LABS: BASO % 0 % (0-3); EOS # 0.1 x10^3/uL (0.0-0.7); EOS % 1 % (0-3); HEMATOCRIT 40.7 % (36.0-47.0); HEMOGLOBIN 13.9 g/dL (12.0-15.5); LYMPH # 1.6 x10^3/uL (1.0-4.8); LYMPH % 24 % (24-48); MEAN CORPUSCULAR HEMOGLOBIN 29 pg (25-35); MEAN CORPUSCULAR HGB CONC 34 g/dL (31-37); MEAN CORPUSCULAR VOLUME 85 fL (79-100); MONO # 0.4 x10^3/uL (0.0-1.1); MONO % 7 % (0-9); NEUT # 4.4 x10^3uL (1.8-7.7); NEUT % 68 % (31-73); PLATELET COUNT 176 x10^3/uL (140-400); RED BLOOD COUNT 4.77 x10^6/uL (3.50-5.40); WHITE BLOOD COUNT 6.5 x10^3/uL (4.0-11.0)
[2017-12-03 15:30] LABS: BARBITURATES NEG (NEG); BENZODIAZEPINES NEG (NEG); CANNABINOIDS NEG (NEG); COCAINE NEG (NEG); METHADONE NEG (NEG); OPIATES NEG (NEG); PHENCYCLIDINE NEG (NEG)
[2017-12-03 15:31] LABS: AMPHETAMINE/METHAMPHETAMINE NEG (NEG); ETHANOL, URINE NEG (NEG)
[2017-12-03 15:36] LABS: BACTERIA,URINE FEW /HPF (0-FEW); BILIRUBIN,URINE NEGATIVE (NEG); CLARITY,URINE CLEAR; COLOR,URINE YELLOW; GLUCOSE,URINE NEGATIVE (NEG); NITRITE,URINE NEGATIVE (NEG); PROTEIN,URINE NEGATIVE (NEG-TRACE); RBC,URINE OCC /HPF (0-2); SQUAMOUS EPITHELIAL CELL,UR MOD /LPF; UROBILINOGEN,URINE 0.2 mg/dL (0.2 mg/dL); WBC,URINE OCC /HPF (0-4)
[2017-12-03 15:40] LABS: ANION GAP 6 (6-14); BLOOD UREA NITROGEN 13 mg/dL (7-20); CALCIUM 9.1 mg/dL (8.5-10.1); CARBON DIOXIDE 31 mmol/L (21-32); CHLORIDE 107 mmol/L (98-107); CREATININE 0.8 mg/dL (0.6-1.0); GFR 73.9; GLUCOSE 131 mg/dL (70-99); POTASSIUM 3.8 mmol/L (3.5-5.1); SODIUM 144 mmol/L (136-145)
[2017-12-03 15:47] LABS: ALBUMIN 3.3 g/dL (3.4-5.0); ALK PHOS 96 U/L (46-116); ALT (SGPT) 22 U/L (14-59); AST (SGOT) 14 U/L (15-37); DIRECT BILIRUBIN < 0.1 mg/dL (0.0-0.2); MAGNESIUM 1.8 mg/dL (1.8-2.4); TOTAL BILIRUBIN 0.2 mg/dL (0.2-1.0); TOTAL PROTEIN 6.9 g/dL (6.4-8.2)
[2017-12-03 15:49] LABS: TROPONINI < 0.017 ng/mL (0.000-0.055)
[2017-12-03 15:54] LABS: CREATINE KINASE 41 U/L (26-192)
[2017-12-03 15:54] LABS: NT-PRO BNP 554 pg/mL (0-124)
[2017-12-03 17:30] LABS: BASE EXCESS ABG -1 mmol/L (-3-3); HCO3 ABG 24 mmol/L (21-28); PCO2 ABG 39 mmHg (35-46); PO2 ABG 73 mmHg (75-108); SAT O2 ABG 94 % (92-99)
[2017-12-03 17:33] LABS: FIO2 ABG 21
[2017-12-03] MEDS ORDERED: ACETAMINOPHEN 325 MG TABLET. PO (19:45)
[2017-12-03] MEDS ORDERED: NITROGLYCERIN SUBLINGUAL 0.4 MG BOTTLE OF 25. SL (19:45)
[2017-12-03] MEDS ORDERED: ZOLPIDEM 5 MG TABLET. PO (19:45)
[2017-12-03] MEDS ORDERED: ALBUTEROL SULFATE 2.5 MG/3 ML NEBU. NEB (19:45)
[2017-12-03] MEDS ORDERED: MAG HYDROX/ALUMINUM HYD/SIMETH 30 ML ORAL.SUSP PO (20:00)
[2017-12-03] MEDS: BENZTROPINE MESYLATE 1 MG TABLET. PO (20:36)
[2017-12-03] MEDS: OLANZapine 5 MG TABLET PO (20:36)
[2017-12-03] MEDS: METHYLPHENIDATE HCL 5 MG TABLET PO (20:36)
[2017-12-03] MEDS: PREGABALIN 50 MG CAPSULE PO (20:37)
[2017-12-03] MEDS: DIVALPROEX EXTENDED RELEASE 500 MG TAB.ER.24H. PO (20:37)
[2017-12-03] MEDS: QUEtiapine 25 MG TABLET. PO (20:38)
[2017-12-03] MEDS: traMADol 50 MG TABLET PO (20:38)
[2017-12-03] MEDS: ATORVASTATIN CALCIUM 10 MG TABLET. PO (20:38)
[2017-12-03] MEDS: POTASSIUM CHLORIDE 20 MEQ TABLET.ER. PO (20:39)
[2017-12-03] MEDS: METOPROLOL TART IMMED RELEASE 25 MG TABLET. PO (20:39)
[2017-12-03] MEDS: LURASIDONE 40 MG TABLET. PO (20:40)
[2017-12-03] MEDS: DICLOFENAC SODIUM 1% TOPICAL GEL 100GM TUBE. TP (20:44)
[2017-12-03] MEDS: FLUTICASONE 50MCG/NASAL SPRAY 16GM BOTTLE. NS (20:45)
[2017-12-03] MEDS ORDERED: traMADol 50 MG TABLET PO (21:00)
[2017-12-03 22:33] LABS: TROPONINI < 0.017 ng/mL (0.000-0.055)
[2017-12-04 06:10] LABS: ADD MAN DIFF? NO
[2017-12-04] MEDS: LEVOTHYROXINE 25 MCG TABLET. PO (06:25)
[2017-12-04] MEDS: traMADol 50 MG TABLET PO (06:26)
[2017-12-04 06:28] LABS: BASO % 0 % (0-3); EOS # 0.1 x10^3/uL (0.0-0.7); EOS % 1 % (0-3); HEMATOCRIT 38.5 % (36.0-47.0); LYMPH # 1.9 x10^3/uL (1.0-4.8); LYMPH % 28 % (24-48); MEAN CORPUSCULAR HEMOGLOBIN 29 pg (25-35); MEAN CORPUSCULAR HGB CONC 34 g/dL (31-37); MEAN CORPUSCULAR VOLUME 87 fL (79-100); MONO # 0.6 x10^3/uL (0.0-1.1); MONO % 9 % (0-9); NEUT # 4.1 x10^3uL (1.8-7.7); NEUT % 62 % (31-73); PLATELET COUNT 153 x10^3/uL (140-400); RED BLOOD COUNT 4.44 x10^6/uL (3.50-5.40); RED CELL DISTRIBUTION WIDTH 13.9 % (11.5-14.5); WHITE BLOOD COUNT 6.6 x10^3/uL (4.0-11.0)
[2017-12-04 06:42] LABS: INR 2.3 (0.8-1.1); PROTHROMBIN TIME PATIENT 24.5 SEC (11.7-14.0)
[2017-12-04 06:43] LABS: ANION GAP 9 (6-14); BLOOD UREA NITROGEN 15 mg/dL (7-20); CALCIUM 8.6 mg/dL (8.5-10.1); CARBON DIOXIDE 26 mmol/L (21-32); CHLORIDE 108 mmol/L (98-107); CREATININE 0.7 mg/dL (0.6-1.0); GFR 86.2; GLUCOSE 99 mg/dL (70-99); POTASSIUM 3.9 mmol/L (3.5-5.1); SODIUM 143 mmol/L (136-145)
[2017-12-04 06:50] LABS: TROPONINI < 0.017 ng/mL (0.000-0.055)
[2017-12-04] MEDS: MONTELUKAST SODIUM 10 MG TABLET. PO (08:08)
[2017-12-04] MEDS: PREGABALIN 50 MG CAPSULE PO (08:08)
[2017-12-04] MEDS: BENZTROPINE MESYLATE 1 MG TABLET. PO (08:09)
[2017-12-04] MEDS: DIVALPROEX EXTENDED RELEASE 500 MG TAB.ER.24H. PO (08:09)
[2017-12-04] MEDS: FUROSEMIDE 40 MG TABLET. PO (08:09)
[2017-12-04] MEDS: PANTOPRAZOLE 40 MG TABLET.DR. PO (08:09)
[2017-12-04] MEDS: METOPROLOL TART IMMED RELEASE 25 MG TABLET. PO (08:10)
[2017-12-04] MEDS: POTASSIUM CHLORIDE 20 MEQ TABLET.ER. PO (08:10)
[2017-12-04] MEDS: CETIRIZINE HCL 10 MG TABLET. PO (08:10)
[2017-12-04] MEDS: FLUoxetine HCL 20 MG CAPSULE PO (08:10)
[2017-12-04] MEDS: LISINOPRIL 20 MG TABLET PO (08:10)
[2017-12-04] MEDS: FLUTICASONE 50MCG/NASAL SPRAY 16GM BOTTLE. NS (08:14)
[2017-12-04] MEDS: DICLOFENAC SODIUM 1% TOPICAL GEL 100GM TUBE. TP (08:14)
[2017-12-04] MEDS ORDERED: WARFARIN 4 MG TABLET. PO (16:00)
== END 2017-12-04 16:58 | disposition home health service (06) | DRG 552 ==
LOC: ER 14:24 → 5 SOUTH 17:00
DX: M54.16 Radiculopathy, lumbar region (principal); F20.9 Schizophrenia, unspecified; G62.9 Polyneuropathy, unspecified; I48.91 Unspecified atrial fibrillation; Z68.41 Body mass index [BMI] 40.0-44.9, adult; M75.91 Shoulder lesion, unspecified, right shoulder; M70.61 Trochanteric bursitis, right hip; E66.9 Obesity, unspecified; E78.5 Hyperlipidemia, unspecified; F31.9 Bipolar disorder, unspecified; F41.9 Anxiety disorder, unspecified; G47.419 Narcolepsy without cataplexy; G89.29 Other chronic pain; I10 Essential (primary) hypertension; I25.10 Atherosclerotic heart disease of native coronary artery without angina pectoris; I35.9 Nonrheumatic aortic valve disorder, unspecified; J44.9 Chronic obstructive pulmonary disease, unspecified; M17.0 Bilateral primary osteoarthritis of knee; M70.62 Trochanteric bursitis, left hip; M77.9 Enthesopathy, unspecified; R29.6 Repeated falls; I25.2 Old myocardial infarction; Z79.01 Long term (current) use of anticoagulants; Z95.5 Presence of coronary angioplasty implant and graft; Z95.2 Presence of prosthetic heart valve; Z90.710 Acquired absence of both cervix and uterus; Z87.891 Personal history of nicotine dependence; Z88.0 Allergy status to penicillin; Z88.2 Allergy status to sulfonamides; Z88.8 Allergy status to other drugs, medicaments and biological substances; Z91.041 Radiographic dye allergy status; Z91.040 Latex allergy status; Z86.73 Personal history of transient ischemic attack (TIA), and cerebral infarction without residual deficits; Z83.3 Family history of diabetes mellitus
CPT/HCPCS: 36415; 36600; 71045; 73060; 80048; 80076; 80307; 81001; 82553; 82805; 82962; 83735; 83880; 84484; 85025; 85610; 93005; 97161-GP; 99285; 99285-25

== ENCOUNTER → 2018-04-26 | Day surgery (SDC) | payer OTHER ==
[~2018-04-26] MED LIST changes: +ATOR20TA58 PO; +GENTAMICIN SULFATE 80 MG in IV DEXTROSE 5% 100ML 100 ML IV ONE; +IV RINGERS,LACTATED 1000ML 1,000 ML IV SCH; +LACT1CAP19 PO; +LEVO25TA55 PO; +LIDOCAINE 1% PF 2 ML VIAL. ID PRN; +LIDOCAINE 2% PF Vial for OR 5 ML VIAL. ONE; +METO10TA81 PO; -METO50TA2 PO; +METO50TA6 PO; +NORMAL SALINE IV ONE; +ONDANSETRON PF 4 MG/2 ML VIAL. IV PRN; +POTA10TA12 PO; -POTASSIUM CHLO10 MEQ PO; +PROPOFOL 20 ML IV ONE; +PROPOFOL 40 ML IV ONE; +TRAZ-85 PO; -TRAZ50TA15 PO; +VANCOMYCIN 500 MG in IV NORMAL SALINE 100ML 100 ML IV ONE; +VANCOMYCIN IV ONE; +WARF-31 PO; +WARF10TA45 MC; +WARF4TAB64 PO; -WARF4TAB7 PO; -WARF5TAB7 PO; +WARF7.5T45 PO; -WARF7.5T6 PO; +fentaNYL PF VIAL 100 MCG/2 ML VIAL IV PRN
[2018-04-26 11:23] VITALS: BP 151/80
== END | disposition home or self-care (01) ==
LOC: ENDOS 09:19
PROVIDERS: ATTEND Internal Medicine Gastroenterology
DX: K57.30 Diverticulosis of large intestine without perforation or abscess without bleeding (principal); R10.13 Epigastric pain; F25.9 Schizoaffective disorder, unspecified; Z87.11 Personal history of peptic ulcer disease; K58.9 Irritable bowel syndrome, unspecified; Z86.010 Personal history of colon polyps; F41.0 Panic disorder [episodic paroxysmal anxiety]; Z95.4 Presence of other heart-valve replacement; F31.9 Bipolar disorder, unspecified; G43.909 Migraine, unspecified, not intractable, without status migrainosus; Z95.0 Presence of cardiac pacemaker; Z90.710 Acquired absence of both cervix and uterus; Z82.3 Family history of stroke; Z82.49 Family history of ischemic heart disease and other diseases of the circulatory system; Z79.899 Other long term (current) drug therapy; Z88.2 Allergy status to sulfonamides; Z88.5 Allergy status to narcotic agent; Z88.6 Allergy status to analgesic agent; Z88.8 Allergy status to other drugs, medicaments and biological substances; Z88.1 Allergy status to other antibiotic agents; Z88.0 Allergy status to penicillin; Z79.01 Long term (current) use of anticoagulants; I63.9 Cerebral infarction, unspecified; G81.94 Hemiplegia, unspecified affecting left nondominant side; I11.0 Hypertensive heart disease with heart failure; I50.9 Heart failure, unspecified; I25.10 Atherosclerotic heart disease of native coronary artery without angina pectoris; Z95.5 Presence of coronary angioplasty implant and graft; J44.9 Chronic obstructive pulmonary disease, unspecified; Z90.49 Acquired absence of other specified parts of digestive tract; K21.9 Gastro-esophageal reflux disease without esophagitis; Z85.3 Personal history of malignant neoplasm of breast; M19.90 Unspecified osteoarthritis, unspecified site; F17.200 Nicotine dependence, unspecified, uncomplicated; Z80.3 Family history of malignant neoplasm of breast; Z91.040 Latex allergy status; Z98.890 Other specified postprocedural states
CPT/HCPCS: 43235; 45378; J1580; J2001; J2704; J3370

== ENCOUNTER 2018-05-03 18:48 | Inpatient (IN) | payer OTHER ==
[~2018-05-03] VITALS: Ht 154.9 cm; Wt 91.7 kg
[~2018-05-03 18:48] MED LIST changes: -GENTAMICIN SULFATE 80 MG in IV DEXTROSE 5% 100ML 100 ML IV ONE; -IV RINGERS,LACTATED 1000ML 1,000 ML IV SCH; -LIDOCAINE 1% PF 2 ML VIAL. ID PRN; -LIDOCAINE 2% PF Vial for OR 5 ML VIAL. ONE; -NORMAL SALINE IV ONE; -ONDANSETRON PF 4 MG/2 ML VIAL. IV PRN; -PROPOFOL 20 ML IV ONE; -PROPOFOL 40 ML IV ONE; -VANCOMYCIN 500 MG in IV NORMAL SALINE 100ML 100 ML IV ONE; -VANCOMYCIN IV ONE; -fentaNYL PF VIAL 100 MCG/2 ML VIAL IV PRN
--- NOTE | 2018-05-03 19:12 | EKG ---
[facility] [address] [place] [address] Test Date: 2018-05-03 Test Time: 18:54:04 Pat Name: RHETT HERNANDEZ Department: Room: Gender: Female [place] Man: : 1960 Requested By: KUNAL RILEY Order Number: [id number] Reading MD: Josh Hayes MD Measurements Intervals [place] Rate: 85 P: [place]: QRS: 7 QRSD: 86 T: 43 QT: 400 QTc: 481 Interpretive Statements SR NON-SPECIFIC ST/T CHANGES Electronically Signed On 05-04-2018 8:19:07 CDT by Josh Hayes MD
[2018-05-03 19:15] LABS: BASO % 0 % (0-3); EOS # 0.1 x10^3/uL (0.0-0.7); EOS % 2 % (0-3); HEMATOCRIT 42.3 % (36.0-47.0); HEMOGLOBIN 14.6 g/dL (12.0-15.5); LYMPH # 2.2 x10^3/uL (1.0-4.8); LYMPH % 31 % (24-48); MEAN CORPUSCULAR HEMOGLOBIN 30 pg (25-35); MEAN CORPUSCULAR HGB CONC 35 g/dL (31-37); MEAN CORPUSCULAR VOLUME 86 fL (79-100); MONO # 0.5 x10^3/uL (0.0-1.1); MONO % 7 % (0-9); NEUT # 4.1 x10^3uL (1.8-7.7); NEUT % 59 % (31-73); PLATELET COUNT 203 x10^3/uL (140-400); RED BLOOD COUNT 4.91 x10^6/uL (3.50-5.40); RED CELL DISTRIBUTION WIDTH 14.4 % (11.5-14.5)
[2018-05-03] MEDS: NITROGLYCERIN SUBLINGUAL 0.4 MG BOTTLE OF 25. SL PRN ×2 (19:22→19:38)
--- NOTE | 2018-05-03 19:25 | PHYS DOC ---
Past Medical History Past Medical History: A-Fib, Anxiety, Bipolar, CVA, Hypertension, IA, Schizophrenia, Other Additional Past Medical Histor: HALLUCINATIONS, AORTIC VALVE DISORDERS, mi 1996 , kidney problems Past Surgical History: Cholecystectomy, Pacemaker, Other Additional Past Surgical Histo: HERNIA REPAIR, AORTIC VALVE REPLACEMENT Alcohol Use: None Drug Use: None Adult General Chief Complaint Chief Complaint: CHEST PAIN-CARDIAC NATURE HPI HPI Patient is a 57 year old female with a history of mitral valve replacement, A. fib, on Coumadin, hypertension, who presents today complaining of a constant "stampeding" 10 out of 10 left-sided chest pain radiating to her left upper extremity and her left lower extremity that began this morning. Patient states nothing exacerbates or makes the pain better. Patient states the pain got worse this evening hence the reason she came to the hospital. She denies any nausea vomiting. Denies any fever coughing or congestion. PCP Dr. Castellanos Review of Systems Review of Systems Constitutional: Denies fever or chills [] Eyes: Denies change in visual acuity, redness, or eye pain [] HENT: Denies nasal congestion or sore throat [] Respiratory: Denies cough or shortness of breath [] Cardiovascular: Reports left-sided chest pain GI: Denies abdominal pain, nausea, vomiting, bloody stools or diarrhea [] : Denies dysuria or hematuria [] Musculoskeletal: Denies back pain or joint pain [] Integument: Denies rash or skin lesions [] Neurologic: Denies headache, focal weakness or sensory changes [] All other systems were reviewed and found to be within normal limits, except as documented in this note. Current Medications Current Medications Current Medications Medications (Trade) Dose Ordered Sig/Galilea Start Time Stop Time Status Last Admin Dose Admin Fentanyl Citrate (Fentanyl 2ml Vial) 50 mcg 1X ONCE 05/03/18 19:30 05/03/18 19:31 DC 05/03/18 19:22 50 MCG Nitroglycerin (Nitrostat) 0.4 mg PRN Q5MIN PRN 05/03/18 19:15 05/03/18 20:33 DC 05/03/18 19:38 0.4 MG Ondansetron HCl (Zofran) 4 mg 1X ONCE 05/03/18 20:15 05/03/18 20:16 DC 05/03/18 19:58 4 MG Allergies Allergies Allergies Coded Allergies Type Severity Reaction Last Updated Verified Sulfa (Sulfonamide Antibiotics) Allergy Severe rash, tongue swelling 04/15/15 Yes Iodinated Contrast- Oral and IV Dye Allergy Intermediate rash 04/15/15 Yes Penicillins Allergy Intermediate Hives 04/15/15 Yes aspirin Allergy Intermediate Hives 04/15/15 Yes codeine Allergy Intermediate Hives; SEE COMMENT 06/08/15 Yes diphenhydramine HCl Allergy Intermediate rash 12/19/13 Yes latex Allergy Intermediate Rash 12/18/13 Yes Physical Exam Physical Exam Constitutional: Well developed, well nourished, no acute distress, non-toxic appearance. [] HENT: Normocephalic, atraumatic, bilateral external ears normal, oropharynx moist, no oral exudates, nose normal. [] Eyes: PERRLA, EOMI, conjunctiva normal, no discharge. [] Neck: Normal range of motion, no tenderness, supple, no stridor. [] Cardiovascular:Heart rate regular rhythm, Lungs & Thorax: Bilateral breath sounds clear to auscultation [] Abdomen: Bowel sounds normal, soft, no tenderness, no masses, no pulsatile masses. [] Skin: Warm, dry, no erythema, no rash. [] Back: No tenderness, no CVA tenderness. [] Extremities: No tenderness, no cyanosis, no clubbing, ROM intact, no edema. [] Neurologic: Alert and oriented X 3, normal motor function, normal sensory function, no focal deficits noted. [] Psychologic: Affect normal, judgement normal, mood normal. [] Current Patient Data Vital Signs Vital Signs Date Time Temp Pulse Resp B/P (MAP) Pulse Ox O2 Delivery O2 Flow Rate FiO2 05/03/18 20:22 59 124/64 (84) 90 Room Air 05/03/18 19:22 18 05/03/18 18:50 97.8 97.8 Lab Values Laboratory Tests Test 05/03/18 19:05 05/03/18 19:22 White Blood Count 7.0 x10^3/uL (4.0-11.0) Red Blood Count 4.91 x10^6/uL (3.50-5.40) Hemoglobin 14.6 g/dL (12.0-15.5) Hematocrit 42.3 % (36.0-47.0) Mean Corpuscular Volume 86 fL (79-100) Mean Corpuscular Hemoglobin 30 pg (25-35) Mean Corpuscular Hemoglobin Concent 35 g/dL (31-37) Red Cell Distribution Width 14.4 % (11.5-14.5) Platelet Count 203 x10^3/uL (140-400) Neutrophils (%) (Auto) 59 % (31-73) Lymphocytes (%) (Auto) 31 % (24-48) Monocytes (%) (Auto) 7 % (0-9) Eosinophils (%) (Auto) 2 % (0-3) Basophils (%) (Auto) 0 % (0-3) Neutrophils # (Auto) 4.1 x10^3uL (1.8-7.7) Lymphocytes # (Auto) 2.2 x10^3/uL (1.0-4.8) Monocytes # (Auto) 0.5 x10^3/uL (0.0-1.1) Eosinophils # (Auto) 0.1 x10^3/uL (0.0-0.7) Basophils # (Auto) 0.0 x10^3/uL (0.0-0.2) Prothrombin Time 24.1 SEC (11.7-14.0) H Prothrombin Time INR 2.2 (0.8-1.1) H Sodium Level 142 mmol/L (136-145) Potassium Level 3.8 mmol/L (3.5-5.1) Chloride Level 106 mmol/L (98-107) Carbon Dioxide Level 27 mmol/L (21-32) Anion Gap 9 (6-14) Blood Urea Nitrogen 16 mg/dL (7-20) Creatinine 0.8 mg/dL (0.6-1.0) Estimated GFR (Cockcroft-Gault) 73.9 BUN/Creatinine Ratio 20 (6-20) Glucose Level 92 mg/dL (70-99) Calcium Level 9.2 mg/dL (8.5-10.1) Magnesium Level 1.9 mg/dL (1.8-2.4) Total Bilirubin 0.3 mg/dL (0.2-1.0) Aspartate Amino Transferase (AST) 26 U/L (15-37) Alanine Aminotransferase (ALT) 50 U/L (14-59) Alkaline Phosphatase 103 U/L (46-116) Creatine Kinase 37 U/L (26-192) Creatine Kinase MB (Mass) 0.7 ng/mL (0.0-3.6) Creatine Kinase MB Relative Index % (0-4) Troponin I Quantitative < 0.017 ng/mL (0.000-0.055) DM-Rig-E-Type Natriuretic Peptide 186 pg/mL (0-124) H Total Protein 7.5 g/dL (6.4-8.2) Albumin 3.7 g/dL (3.4-5.0) Albumin/Globulin Ratio 1.0 (1.0-1.7) Thyroid Stimulating Hormone (TSH) 1.681 uIU/mL (0.358-3.74) Urine Collection Type Void Urine Color Yellow Urine Clarity Clear Urine pH 6.0 Urine Specific [place] 1.025 Urine Protein Negative mg/dL (NEG-TRACE) Urine Glucose (UA) Negative mg/dL (NEG) Urine Ketones (Stick) Negative mg/dL (NEG) Urine Blood Negative (NEG) Urine Nitrite Negative (NEG) Urine Bilirubin Negative (NEG) Urine Urobilinogen Dipstick 1.0 mg/dL (0.2 mg/dL) Urine Leukocyte Esterase Trace (NEG) Urine RBC 0 /HPF (0-2) Urine WBC 1-4 /HPF (0-4) Urine Squamous Epithelial Cells Many /LPF Urine Bacteria Moderate /HPF (0-FEW) Urine Mucus Marked /LPF Urine Opiates Screen Neg (NEG) Urine Methadone Screen Neg (NEG) Urine Barbiturates Neg (NEG) Urine Phencyclidine Screen Neg (NEG) Urine Amphetamine/Methamphetamine Neg (NEG) Urine Benzodiazepines Screen Neg (NEG) Urine Cocaine Screen Neg (NEG) Urine Cannabinoids Screen Neg (NEG) Urine Ethyl Alcohol Neg (NEG) Laboratory Tests 05/03/18 19:05 Laboratory Tests 05/03/18 19:05 EKG EKG 18:[address] Porter Sinus rhythm, HR 85 no STEMI[] Radiology/Procedures Radiology/Procedures [] Course & Med Decision Making Course & Med Decision Making Pertinent Labs and Imaging studies reviewed. (See chart for details) This is a 57-year-old female patient presenting to the ED today complaining of left-sided chest pain since this morning. Patient was given nitroglycerin on arrival to the ED. Her blood pressure improved from 191/100 HR 80's to 140/72 with HR in the 60's and improving chest pain. Patient's cardiac workup is negative. Heart score is 2. Considering her risk factors. Patient was admitted for chest pain r/o. 20:25 Dr. Josue who accepted patient for admission. Serial troponin ordered. Cardiology consult placed. German: This patient was admitted to the hospital and discharged from the emergency room prior to my review of this chart. I was not consulted during the emergency room visit. Dragon Disclaimer Dragon Disclaimer This electronic medical record was generated, in whole or in part, using a voice recognition dictation system. Departure Departure Impression: Primary Impression: Chest pain Disposition: ADMITTED INPATIENT Condition: STABLE Referrals: RUBIO CASTELLANOS (PCP) Problem Qualifiers Primary Impression: Chest pain Chest pain type: unspecified Qualified Codes: R07.9 - Chest pain, unspecified KUNAL RILEY APRN May 03, 2018 19:25 BESS PORTER MD May 04, 2018 01:31
[2018-05-03 19:26] LABS: CALCIUM 9.2 mg/dL (8.5-10.1); CREATININE 0.8 mg/dL (0.6-1.0); GFR 73.9; POTASSIUM 3.8 mmol/L (3.5-5.1)
[2018-05-03 19:28] LABS: BILIRUBIN,URINE NEGATIVE (NEG); CLARITY,URINE CLEAR; COLOR,URINE YELLOW; NITRITE,URINE NEGATIVE (NEG); PROTEIN,URINE NEGATIVE (NEG-TRACE)
[2018-05-03] MEDS ORDERED: fentaNYL PF VIAL 100 MCG/2 ML VIAL IV ONE (19:30)
[2018-05-03 19:32] LABS: ALBUMIN 3.7 g/dL (3.4-5.0); MAGNESIUM 1.9 mg/dL (1.8-2.4); PROTHROMBIN TIME PATIENT 24.1 SEC (11.7-14.0); TOTAL BILIRUBIN 0.3 mg/dL (0.2-1.0); TOTAL PROTEIN 7.5 g/dL (6.4-8.2)
[2018-05-03 19:39] LABS: BACTERIA,URINE MODERATE /HPF (0-FEW); RBC,URINE 0 /HPF (0-2); SQUAMOUS EPITHELIAL CELL,UR MANY /LPF
[2018-05-03 19:41] LABS: CREATINE KINASE 37 U/L (26-192)
[2018-05-03 19:45] LABS: AMPHETAMINE/METHAMPHETAMINE NEG (NEG); BARBITURATES NEG (NEG); BENZODIAZEPINES NEG (NEG); CANNABINOIDS NEG (NEG); COCAINE NEG (NEG); METHADONE NEG (NEG); OPIATES NEG (NEG); PHENCYCLIDINE NEG (NEG)
[2018-05-03] MEDS ORDERED: ONDANSETRON PF 4 MG/2 ML VIAL. IV ONE (20:15)
[2018-05-03] MEDS ORDERED: fentaNYL PF VIAL 100 MCG/2 ML VIAL IV PRN (20:30)
[2018-05-03] MEDS ORDERED: ONDANSETRON PF 4 MG/2 ML VIAL. IV PRN (20:30)
[2018-05-03] MEDS ORDERED: NITROGLYCERIN SUBLINGUAL 0.4 MG BOTTLE OF 25. SL PRN (20:30)
--- NOTE | 2018-05-03 21:33 | RAD ---
Indication:LEFT SIDED CHEST PAIN X1 DAY TECHNIQUE:Portable AP chest X-ray COMPARISON: 12/11/2017 FINDINGS: Moderate cardiomegaly with median sternotomy. Dual-lead cardiac pacer is seen with diffuse projecting over the heart. Calcified left suprahilar lymph node. Lungs are clear. No pneumothorax or pleural effusion. Mild prominence of the pulmonary vascular disease seen. Visualized bony thorax within normal limits. IMPRESSION: Moderate cardiomegaly. No acute pulmonary process. Electronically signed by: Constantine Hall DO (05/03/2018 9:30 PM) [facility]
[2018-05-03 23:59] VITALS: BP 133/74
[2018-05-04] VITALS (7 sets, daily range): BP systolic 117–157; BP diastolic 53–74
[2018-05-04] MEDS ORDERED: TOPI25TA7 PO (01:57)
[2018-05-04] MEDS ORDERED: QUET100T4 PO (01:57)
[2018-05-04] MEDS ORDERED: ISOS30TA4 PO (01:57)
[2018-05-04] MEDS ORDERED: WARF-31 PO (01:57)
[2018-05-04] MEDS ORDERED: COLE1TAB2 PO (01:57)
[2018-05-04 05:25] LABS: BASO % 1 % (0-3); EOS # 0.1 x10^3/uL (0.0-0.7); EOS % 1 % (0-3); HEMATOCRIT 38.1 % (36.0-47.0); HEMOGLOBIN 13.2 g/dL (12.0-15.5); LYMPH # 1.9 x10^3/uL (1.0-4.8); LYMPH % 30 % (24-48); MEAN CORPUSCULAR HEMOGLOBIN 30 pg (25-35); MEAN CORPUSCULAR HGB CONC 35 g/dL (31-37); MEAN CORPUSCULAR VOLUME 87 fL (79-100); MONO # 0.5 x10^3/uL (0.0-1.1); MONO % 7 % (0-9); NEUT # 3.9 x10^3uL (1.8-7.7); NEUT % 61 % (31-73); PLATELET COUNT 185 x10^3/uL (140-400); RED CELL DISTRIBUTION WIDTH 14.5 % (11.5-14.5); WHITE BLOOD COUNT 6.4 x10^3/uL (4.0-11.0)
[2018-05-04 05:37] LABS: CALCIUM 8.4 mg/dL (8.5-10.1); CREATININE 0.7 mg/dL (0.6-1.0); GFR 86.2; POTASSIUM 3.7 mmol/L (3.5-5.1)
--- NOTE | 2018-05-04 10:14 | PDOC ---
Provider Note Provider Note Pt seen.H&P dictated. #[id number]. NICOLE SMITH MD May 04, 2018 10:14
[2018-05-04] MEDS ORDERED: ALBUTEROL SULFATE 2.5 MG/3 ML NEBU. NEB PRN (10:15)
[2018-05-04] MEDS ORDERED: ZOLPIDEM 5 MG TABLET. PO PRN (10:15)
[2018-05-04] MEDS ORDERED: NITROGLYCERIN SUBLINGUAL 0.4 MG BOTTLE OF 25. SL PRN (10:15)
[2018-05-04] MEDS ORDERED: DIVA-53 PO (10:22)
--- NOTE | 2018-05-04 10:47 | PDOC2 ---
CLEVELAND LUNDBERG SPORTS STATISTICIAN 05/04/18 1047: CARDIAC CONSULT DATE OF CONSULT Date of Consult DATE: 05/04/18 TIME: 10:18 REASON FOR CONSULT Reason for Consult: Chest pain REFERRING PHYSICIAN Referring Physician: Floridalma SOURCE Source: Chart review, Patient HISTORY OF PRESENT ILLNESS HISTORY OF PRESENT ILLNESS This is a pleasant 57 yo female admitted for complains of chest pain and vomiting. Reports that yesterday she was nauseated and vomited at least 10 times with bile colored emesis. She then started having sharp mid chest pain that radiated to her left side abd and left leg. Her abd is tender blaming it on retching from yesterday. She did not take any medications to relieve the vomiting. Denies any SOA, palpitations and she has been compliant with her cardiac medications. PAST MEDICAL HISTORY Past Medical History Cardiovascular: CAD, HTN, Hyperlipidemia Pulmonary: Asthma, COPD GI: GERD, GI bleed, colitis, gastroparesis Heme/Onc: No pertinent hx Psych: Anxiety, Bipolar, Depression, Schizophrenia, Other (narcolepsy) Musculoskeletal: Osteoarthritis, lower back injury Infectious disease: No pertinent hx ENT: No pertinent hx Renal/: No pertinent hx Endocrine: No pertinent hx Dermatology: No pertinent hx PAST SURGICAL HISTORY Past Surgical History Cholecystectomy, Hysterectomy, Other (mechanical aortic valve), PPM, Multiple PCIs with stents FAMILY HISTORY Family History: Diabetes SOCIAL HISTORY Smoke: No ALCOHOL: none Drugs: None Lives: with Family CURRENT MEDICATIONS CURRENT MEDICATIONS Current Medications Medications (Trade) Dose Ordered Sig/Galilea Route PRN Reason Start Time Stop Time Status Last Admin Dose Admin Nitroglycerin (Nitrostat) 0.4 mg PRN Q5MIN PRN SL CP RATING > 1/10 05/03/18 19:15 05/03/18 20:33 DC 05/03/18 19:38 Fentanyl Citrate (Fentanyl 2ml Vial) 50 mcg 1X ONCE IV 05/03/18 19:30 05/03/18 19:31 DC 05/03/18 19:22 Ondansetron HCl (Zofran) 4 mg 1X ONCE IV 05/03/18 20:15 05/03/18 20:16 DC 05/03/18 19:58 Fentanyl Citrate (Fentanyl 2ml Vial) 50 mcg PRN Q2HR PRN IV PAIN 05/03/18 20:30 05/04/18 20:29 05/04/18 00:46 ALLERGIES ALLERGIES: Coded Allergies: Sulfa (Sulfonamide Antibiotics) (Verified Allergy, Severe, rash, tongue swelling, 04/15/15) Iodinated Contrast- Oral and IV Dye (Verified Allergy, Intermediate, rash , 04/15/15) Penicillins (Verified Allergy, Intermediate, Hives, 04/15/15) aspirin (Verified Allergy, Intermediate, Hives, 04/15/15) codeine (Verified Allergy, Intermediate, Hives; SEE COMMENT, 06/08/15) PT REPORTS TAKING LORTAB WITHOUT COMPLICATIONS, PER ED MD diphenhydramine HCl (Verified Allergy, Intermediate, rash, 12/19/13) latex (Verified Allergy, Intermediate, Rash, 12/18/13) ROS Review of System 14 point ROS evaluated with pertinent positives noted per HPI PHYSICAL EXAM General: Alert, Oriented X3, Cooperative, No acute distress HEENT: Atraumatic, Mucous membr. moist/pink Lungs: Clear to auscultation, Normal air movement Heart: Regular rate (SR), Other (audible click) Abdomen: Soft, No tenderness Extremities: No cyanosis, No edema Skin: No breakdown, No significant lesion Neuro: Normal speech, Sensation intact Psych/Mental Status: Mental status NL, Mood NL MUSCULOSKELETAL: Osteoarthritic changes both hands VITALS VITALS Vital Signs Date Time Temp Pulse Resp B/P (MAP) Pulse Ox O2 Delivery O2 Flow Rate FiO2 05/04/18 07:00 97.7 66 16 133/68 (89) 93 Room Air 97.7 LABS Lab: Laboratory Tests Test 05/03/18 19:05 05/03/18 19:22 05/03/18 22:00 05/04/18 03:55 White Blood Count 7.0 x10^3/uL (4.0-11.0) 6.4 x10^3/uL (4.0-11.0) Red Blood Count 4.91 x10^6/uL (3.50-5.40) 4.40 x10^6/uL (3.50-5.40) Hemoglobin 14.6 g/dL (12.0-15.5) 13.2 g/dL (12.0-15.5) Hematocrit 42.3 % (36.0-47.0) 38.1 % (36.0-47.0) Mean Corpuscular Volume 86 fL (79-100) 87 fL (79-100) Mean Corpuscular Hemoglobin 30 pg (25-35) 30 pg (25-35) Mean Corpuscular Hemoglobin Concent 35 g/dL (31-37) 35 g/dL (31-37) Red Cell Distribution Width 14.4 % (11.5-14.5) 14.5 % (11.5-14.5) Platelet Count 203 x10^3/uL (140-400) 185 x10^3/uL (140-400) Neutrophils (%) (Auto) 59 % (31-73) 61 % (31-73) Lymphocytes (%) (Auto) 31 % (24-48) 30 % (24-48) Monocytes (%) (Auto) 7 % (0-9) 7 % (0-9) Eosinophils (%) (Auto) 2 % (0-3) 1 % (0-3) Basophils (%) (Auto) 0 % (0-3) 1 % (0-3) Neutrophils # (Auto) 4.1 x10^3uL (1.8-7.7) 3.9 x10^3uL (1.8-7.7) Lymphocytes # (Auto) 2.2 x10^3/uL (1.0-4.8) 1.9 x10^3/uL (1.0-4.8) Monocytes # (Auto) 0.5 x10^3/uL (0.0-1.1) 0.5 x10^3/uL (0.0-1.1) Eosinophils # (Auto) 0.1 x10^3/uL (0.0-0.7) 0.1 x10^3/uL (0.0-0.7) Basophils # (Auto) 0.0 x10^3/uL (0.0-0.2) 0.0 x10^3/uL (0.0-0.2) Prothrombin Time 24.1 SEC (11.7-14.0) Prothromb Time International Ratio 2.2 (0.8-1.1) Sodium Level 142 mmol/L (136-145) 143 mmol/L (136-145) Potassium Level 3.8 mmol/L (3.5-5.1) 3.7 mmol/L (3.5-5.1) Chloride Level 106 mmol/L (98-107) 108 mmol/L (98-107) Carbon Dioxide Level 27 mmol/L (21-32) 27 mmol/L (21-32) Anion Gap 9 (6-14) 8 (6-14) Blood Urea Nitrogen 16 mg/dL (7-20) 17 mg/dL (7-20) Creatinine 0.8 mg/dL (0.6-1.0) 0.7 mg/dL (0.6-1.0) Estimated GFR (Cockcroft-Gault) 73.9 86.2 BUN/Creatinine Ratio 20 (6-20) Glucose Level 92 mg/dL (70-99) 104 mg/dL (70-99) Calcium Level 9.2 mg/dL (8.5-10.1) 8.4 mg/dL (8.5-10.1) Magnesium Level 1.9 mg/dL (1.8-2.4) Total Bilirubin 0.3 mg/dL (0.2-1.0) Aspartate Amino Transf (AST/SGOT) 26 U/L (15-37) Alanine Aminotransferase (ALT/SGPT) 50 U/L (14-59) Alkaline Phosphatase 103 U/L (46-116) Creatine Kinase 37 U/L (26-192) Creatine Kinase MB (Mass) 0.7 ng/mL (0.0-3.6) Creatine Kinase MB Relative Index % (0-4) Troponin I Quantitative < 0.017 ng/mL (0.000-0.055) < 0.017 ng/mL (0.000-0.055) IP-Lvk-Z-Type Natriuretic Peptide 186 pg/mL (0-124) Total Protein 7.5 g/dL (6.4-8.2) Albumin 3.7 g/dL (3.4-5.0) Albumin/Globulin Ratio 1.0 (1.0-1.7) Thyroid Stimulating Hormone (TSH) 1.681 uIU/mL (0.358-3.74) Urine Collection Type Void Urine Color Yellow Urine Clarity Clear Urine pH 6.0 Urine Specific [place] 1.025 Urine Protein Negative mg/dL (NEG-TRACE) Urine Glucose (UA) Negative mg/dL (NEG) Urine Ketones (Stick) Negative mg/dL (NEG) Urine Blood Negative (NEG) Urine Nitrite Negative (NEG) Urine Bilirubin Negative (NEG) Urine Urobilinogen Dipstick 1.0 mg/dL (0.2 mg/dL) Urine Leukocyte Esterase Trace (NEG) Urine RBC 0 /HPF (0-2) Urine WBC 1-4 /HPF (0-4) Urine Squamous Epithelial Cells Many /LPF Urine Bacteria Moderate /HPF (0-FEW) Urine Mucus Marked /LPF Urine Opiates Screen Neg (NEG) Urine Methadone Screen Neg (NEG) Urine Barbiturates Neg (NEG) Urine Phencyclidine Screen Neg (NEG) Urine Amphetamine/Methamphetamine Neg (NEG) Urine Benzodiazepines Screen Neg (NEG) Urine Cocaine Screen Neg (NEG) Urine Cannabinoids Screen Neg (NEG) Urine Ethyl Alcohol Neg (NEG) ECHOCARDIOGRAM ECHOCARDIOGRAM <Conclusion> The left ventricular systolic function is normal. The ejection fraction is estimated at 60%. There is normal LV segmental wall motion. There is a pacemaker lead in the right atrium and right ventricle. The mechanical prosthetic aortic valve appears well seated. Prosthetic valve not well interrogated but there appears to be atleast mild valvular aortic stenosis with mean pressure gradient of 26.5 mmHg. Mild mitral regurgitation. Mild to moderate tricuspid regurgitation. There is no evidence of significant pericardial effusion. DATE: 02/14/18 0752 STRESS TEST STRESS TEST Conclusion 1. No EKG evidence of stressed induced ischemia. 2. Nuclear imaging shows no reversible ischemia or infarct. 3. Normal left ventricular systolic function with an ejection fraction of greater than 70%. 4. Low risk Lexiscan nuclear stress test. DATE: 10/26/17 1245 HEART CATH HEART CATH FINDINGS 1. The left main coronary artery arose from the left sinus of Valsalva, gave rise to the left anterior descending and left circumflex arteries and did not show any significant stenosis. 2. The left anterior descending artery showed 30% stenosis in the midsegment. 3. The left circumflex artery did not show any significant stenosis. 4. The right coronary artery was a large and dominant vessel arising from the right sinus of Valsalva that did not show any significant stenosis. The previously placed stent is patent. Conclusion No significant coronary artery disease. Recommendations Medical management DATE: 07/16/15 0919 ASSESSMENT/PLAN ASSESSMENT/PLAN 1. Atypical CP: Troponin series normal, EKG SR without acute changes. Doubt ACS. Known gastroparesis, suspect GI 2. Abdominal pain/vomiting: vomited 10 times yesterday with bile color. 3. CAD: with multiple stents to RCA in 2012. Last [facility] 2014 with nonobstructive disease. No rhythm ectopies. 4. PPM in situ: hx of SSS. (medtronic). Interrogated in 04/05. Pacing 0.2%, < 0.1% afib burden, battery life 4.5 yrs. Impedances are stable. No arrhythmias. , 5. AVR: mechanical valve. Recent echo with normal EF and WM with well seated valve. 6. Chronic coumadin therapy: INR 2.2 7. HTN: controlled 8. HLP: 9. Recent EGD: gastric polyps reported by pt, no polypectomy due to OAC. Recommendations 1. Prefers INR at 2.5-3.5 goal. Bridge coumadin with lovenox if no invasive GI procedure planned. 2. Continue with secondary prevention as tolerated. 3. No further cardiac workup 4. Consult GI. IMMANUEL ALTMAN MD 05/05/18 0834: CARDIAC CONSULT ASSESSMENT/PLAN ASSESSMENT/PLAN Patient seen and examined 05/04/18 (late entry). Agree with DIRECTOR MACHINE's assessment and plan. Chest pain with atypical features and most probably GI etiology. Recent 2-D echo showed normal LV function and Lexiscan nuclear stress test did not show any significant ischemia. CAD status clinically stable. Mechanical aortic valve functioning well on recent echo. Recent pacemaker interrogation showed normal function. No further cardiac workup is indicated at this time. Thank you for your consultation. CLEVELAND LUNDBERG APRN May 04, 2018 10:47 IMMANUEL ALTMAN MD May 05, 2018 08:34
[2018-05-04] MEDS ORDERED: DIVALPROEX EXTENDED RELEASE 500 MG TAB.ER.24H. PO SCH (11:00)
--- NOTE | 2018-05-04 11:11 | HP ---
ADMIT DATE: 05/03/2018 PATIENT LOCATION: 209. ATTENDING PHYSICIAN: Dr. Smith. PRIMARY CARE PHYSICIAN: Dr. West. REASON FOR ADMISSION TO THE HOSPITAL: Chest pain and for the chest, the patient has a history of known coronary artery disease, cardiac stents as well as Mechanical Aortic valve replacement. HISTORY OF PRESENT ILLNESS: The patient is a 57-year-old female, patient of Dr. West. She has history of mechanical heart valve, has aortic valve replacement and she also has history of coronary artery disease, previous cardiac stents, history of bipolar, anxiety, hypertension, hyperlipidemia and schizophrenia. She was having pain and for the chest, came to the Emergency Room and cardiac enzymes and EKG were negative first set. Cardiology was consulted; initially admitted to Hospitalist Service. PAST SURGICAL HISTORY: The patient has a mechanical aortic valve, has a gallbladder surgery and pacemaker for sick sinus syndrome. She states she has had EGD and colonoscopy couple of weeks ago. ALLERGIES: CONTRAST, IVP, PENICILLIN, SULFA, ASPIRIN, CODEINE, DIPHENHYDRAMINE AND LATEX. MEDICATIONS AT HOME: The patient is on DuoNebs 4 times daily, atorvastatin 10 mg daily, benztropine 1 mg twice a day, Zyrtec 10 mg daily, colestipol 1 gram 3 times daily, Depakote 500 mg twice a day, fluoxetine 20 mg daily, fluticasone nose spray daily, Lasix 40 mg daily, isosorbide 30 mg daily, levothyroxine 25 mcg daily, lisinopril 20 mg daily, Latuda 40 mg at bedtime, metoprolol 25 mg twice a day, Singulair 10 mg daily, nitro sublingual, Zyprexa 15 mg at bedtime, omeprazole 40 mg daily, potassium 20 mEq twice a day, Lyrica 50 mg twice a day, Seroquel 100 mg at bedtime, topiramate 25 mg twice a day, Coumadin 5 mg daily and Ambien 5 mg daily. The patient has pain medications, tramadol. PERSONAL HISTORY: History of smoking, quit couple of years ago. Denies alcohol. Denies any street drugs. FAMILY HISTORY: Positive for diabetes, hypertension and heart disease. SOCIAL HISTORY: The patient lives with her . REVIEW OF SYMPTOMS: Cardiac reyes, severe pain, somebody sitting of the chest. No nausea, no vomiting. Some short of breath. GI, has some pain in the left lower abdomen. Had EGD and colonoscopy, shows she has some polyps, 2 weeks ago. Rest of the 14-system was reviewed and negative. PHYSICAL EXAMINATION: GENERAL: On examination, the patient is in the bed, slightly in pain. VITAL SIGNS: Temperature 97, pulse 61, respirations 18, blood pressure 133/74 and 97% on room air. HEENT: Head is atraumatic. Pupils equal. Oral cavity, dentures. NECK: Supple. Thyroid is not enlarged. JVD not elevated. CHEST: Symmetrical, scar of heart surgery. CARDIOVASCULAR: S1, S2. Click present from mechanical valve. LUNGS: Clear to auscultation. No wheezing. ABDOMEN: Soft. Slightly tender in the left lower quadrant. No rebound. Bowel sounds present. EXTERNAL GENITALIA: No Siu. RECTAL: Deferred. EXTREMITIES: No calf tenderness. no Edema. NEUROLOGIC: Moving all extremities. No focal deficit noted. LABORATORY DATA: Shows a white count of 7, hemoglobin 15, platelets 203,000. INR is 2.2. Electrolytes show sodium 142, potassium 3.8, chloride 106, bicarbonate 27, BUN 16, creatinine 0.8 and glucose 92. Magnesium 1.9. LFTs normal. TSH was normal. BNP 186. Chest x-ray, cardiomegaly. EKG done, report is pending. Nonspecific ST-T wave changes, normal sinus rhythm. FINAL IMPRESSION: 1. Chest pain in a patient with a known history of coronary artery disease, previous cardiac stents in the past. 2. Mechanical aortic valve replacement, on Coumadin. INR is therapeutic. 3. History of schizophrenia. 4. Hypertension. 5. Hyperlipidemia. 6. Hypothyroidism. 7. Depression. 8. History of abdominal pain, had EGD and colonoscopy. We will review with the reports on that. PLAN: Plan at this time is admit to hospital. Serial cardiac enzymes and EKG. physician assistant primary care. Cardiology is consulted. Pain control and see how the patient responds to treatment.Pt had cardiac cath in last 12 months ,patent arteries. NICOLE SMITH MD DR: ISAMAR/cori JOB#: [id number] / [id number] RUBIO Birch
--- NOTE | 2018-05-04 11:18 | PDOC2 ---
GI CONSULT Reason For Consult: Persistent abd pain and vomiting HPI: HPI: 57 y/o female who is currently eating cheerios and drinking orange juice. We have seen her many times in the past. Tells me bilious emesis w/ chest and abd pain started yesterday w/o precipitating events. Does have chronic left-sided abd pain which she calls "stomach pain" - she "lives on Pepto" for this. Also has "a lot" of pain around her pacemaker in left chest. H/o GERD on omeprazole QD. No dysphagia or odynophagia. H/o gastroparesis ( GES w/ 22% retention at 4 hours this year) - asked her about taking Reglan and she said "I think I do," and then agreed she "usually" takes it before meals. Hard to tell, but I think vomiting is not unusual for her. Stooling without issue. No bleeding. No weight loss. Numerous EGDs and colonoscopies in the past - in fact, had both last week that were normal except for diverticulosis. S/p cholecystectomy. On Warfarin. PMH: PMH: CAD w/ stents, HTN, HLD, asthma, COPD, GERD, gastroparesis, ?ischemic colitis, diverticulosis, anxiety, depression, bipolar, schizophrenia, narcolepsy, OA, cholecystectomy, hysterectomy, mechanical aortic valve, pacemaker FH: Family History: CAD Social History: Smoke: No ALCOHOL: none Drugs: None ROS: GEN: Denies fevers, chills, sweats HEENT: Denies blurred vision, sore throat CV: +chest pain RESP: Denies shortness of air, cough GI: Per HPI : Denies hematuria, dysuria ENDO: Denies weight changes NEURO: Denies confusion, dizziness MSK: Denies weakness, joint pain/swelling SKIN: Denies jaundice, pruritus Vitals: Vitals: Vital Signs Date Time Temp Pulse Resp B/P (MAP) Pulse Ox O2 Delivery O2 Flow Rate FiO2 05/04/18 10:59 97.9 62 16 130/66 (87) 95 Room Air 97.9 Labs: Labs: Laboratory Tests Test 05/03/18 19:05 05/03/18 19:22 05/03/18 22:00 05/04/18 03:55 White Blood Count 7.0 x10^3/uL (4.0-11.0) 6.4 x10^3/uL (4.0-11.0) Red Blood Count 4.91 x10^6/uL (3.50-5.40) 4.40 x10^6/uL (3.50-5.40) Hemoglobin 14.6 g/dL (12.0-15.5) 13.2 g/dL (12.0-15.5) Hematocrit 42.3 % (36.0-47.0) 38.1 % (36.0-47.0) Mean Corpuscular Volume 86 fL (79-100) 87 fL (79-100) Mean Corpuscular Hemoglobin 30 pg (25-35) 30 pg (25-35) Mean Corpuscular Hemoglobin Concent 35 g/dL (31-37) 35 g/dL (31-37) Red Cell Distribution Width 14.4 % (11.5-14.5) 14.5 % (11.5-14.5) Platelet Count 203 x10^3/uL (140-400) 185 x10^3/uL (140-400) Neutrophils (%) (Auto) 59 % (31-73) 61 % (31-73) Lymphocytes (%) (Auto) 31 % (24-48) 30 % (24-48) Monocytes (%) (Auto) 7 % (0-9) 7 % (0-9) Eosinophils (%) (Auto) 2 % (0-3) 1 % (0-3) Basophils (%) (Auto) 0 % (0-3) 1 % (0-3) Neutrophils # (Auto) 4.1 x10^3uL (1.8-7.7) 3.9 x10^3uL (1.8-7.7) Lymphocytes # (Auto) 2.2 x10^3/uL (1.0-4.8) 1.9 x10^3/uL (1.0-4.8) Monocytes # (Auto) 0.5 x10^3/uL (0.0-1.1) 0.5 x10^3/uL (0.0-1.1) Eosinophils # (Auto) 0.1 x10^3/uL (0.0-0.7) 0.1 x10^3/uL (0.0-0.7) Basophils # (Auto) 0.0 x10^3/uL (0.0-0.2) 0.0 x10^3/uL (0.0-0.2) Prothrombin Time 24.1 SEC (11.7-14.0) Prothromb Time International Ratio 2.2 (0.8-1.1) Sodium Level 142 mmol/L (136-145) 143 mmol/L (136-145) Potassium Level 3.8 mmol/L (3.5-5.1) 3.7 mmol/L (3.5-5.1) Chloride Level 106 mmol/L (98-107) 108 mmol/L (98-107) Carbon Dioxide Level 27 mmol/L (21-32) 27 mmol/L (21-32) Anion Gap 9 (6-14) 8 (6-14) Blood Urea Nitrogen 16 mg/dL (7-20) 17 mg/dL (7-20) Creatinine 0.8 mg/dL (0.6-1.0) 0.7 mg/dL (0.6-1.0) Estimated GFR (Cockcroft-Gault) 73.9 86.2 BUN/Creatinine Ratio 20 (6-20) Glucose Level 92 mg/dL (70-99) 104 mg/dL (70-99) Calcium Level 9.2 mg/dL (8.5-10.1) 8.4 mg/dL (8.5-10.1) Magnesium Level 1.9 mg/dL (1.8-2.4) Total Bilirubin 0.3 mg/dL (0.2-1.0) Aspartate Amino Transf (AST/SGOT) 26 U/L (15-37) Alanine Aminotransferase (ALT/SGPT) 50 U/L (14-59) Alkaline Phosphatase 103 U/L (46-116) Creatine Kinase 37 U/L (26-192) Creatine Kinase MB (Mass) 0.7 ng/mL (0.0-3.6) Creatine Kinase MB Relative Index % (0-4) Troponin I Quantitative < 0.017 ng/mL (0.000-0.055) < 0.017 ng/mL (0.000-0.055) < 0.017 ng/mL (0.000-0.055) ZR-Qog-X-Type Natriuretic Peptide 186 pg/mL (0-124) Total Protein 7.5 g/dL (6.4-8.2) Albumin 3.7 g/dL (3.4-5.0) Albumin/Globulin Ratio 1.0 (1.0-1.7) Thyroid Stimulating Hormone (TSH) 1.681 uIU/mL (0.358-3.74) Urine Collection Type Void Urine Color Yellow Urine Clarity Clear Urine pH 6.0 Urine Specific [place] 1.025 Urine Protein Negative mg/dL (NEG-TRACE) Urine Glucose (UA) Negative mg/dL (NEG) Urine Ketones (Stick) Negative mg/dL (NEG) Urine Blood Negative (NEG) Urine Nitrite Negative (NEG) Urine Bilirubin Negative (NEG) Urine Urobilinogen Dipstick 1.0 mg/dL (0.2 mg/dL) Urine Leukocyte Esterase Trace (NEG) Urine RBC 0 /HPF (0-2) Urine WBC 1-4 /HPF (0-4) Urine Squamous Epithelial Cells Many /LPF Urine Bacteria Moderate /HPF (0-FEW) Urine Mucus Marked /LPF Urine Opiates Screen Neg (NEG) Urine Methadone Screen Neg (NEG) Urine Barbiturates Neg (NEG) Urine Phencyclidine Screen Neg (NEG) Urine Amphetamine/Methamphetamine Neg (NEG) Urine Benzodiazepines Screen Neg (NEG) Urine Cocaine Screen Neg (NEG) Urine Cannabinoids Screen Neg (NEG) Urine Ethyl Alcohol Neg (NEG) Allergies: Coded Allergies: Sulfa (Sulfonamide Antibiotics) (Verified Allergy, Severe, rash, tongue swelling, 04/15/15) Iodinated Contrast- Oral and IV Dye (Verified Allergy, Intermediate, rash , 04/15/15) Penicillins (Verified Allergy, Intermediate, Hives, 04/15/15) aspirin (Verified Allergy, Intermediate, Hives, 04/15/15) codeine (Verified Allergy, Intermediate, Hives; SEE COMMENT, 06/08/15) PT REPORTS TAKING LORTAB WITHOUT COMPLICATIONS, PER ED diphenhydramine HCl (Verified Allergy, Intermediate, rash, 12/19/13) latex (Verified Allergy, Intermediate, Rash, 12/18/13) Medications: Current Medications Medications (Trade) Dose Ordered Sig/Galilea Route PRN Reason Start Time Stop Time Status Last Admin Dose Admin Nitroglycerin (Nitrostat) 0.4 mg PRN Q5MIN PRN SL CP RATING > 1/10 05/03/18 19:15 05/03/18 20:33 DC 05/03/18 19:38 Fentanyl Citrate (Fentanyl 2ml Vial) 50 mcg 1X ONCE IV 05/03/18 19:30 05/03/18 19:31 DC 05/03/18 19:22 Ondansetron HCl (Zofran) 4 mg 1X ONCE IV 05/03/18 20:15 05/03/18 20:16 DC 05/03/18 19:58 Fentanyl Citrate (Fentanyl 2ml Vial) 50 mcg PRN Q2HR PRN IV PAIN 05/03/18 20:30 05/04/18 20:29 05/04/18 00:46 Imaging: Imaging: CXR IMPRESSION: Moderate cardiomegaly. No acute pulmonary process. PE: GEN: NAD HEENT: Atraumatic, PERRLA LUNGS: CTAB HEART: RRR +click *tender to palpation left chest* ABD: NABS, soft, round, left-sided tenderness stable from past admissions EXTREMITY: No edema SKIN: No rashes, no jaundice NEURO/PSYCH: A & O 3 A/P: A/P: Chest pain - reproducible w/ palpation Chronic left-sided abd pain Recurrent n/v, h/o gastroparesis GERD - on PPI, normal EGD last week CRC screen - last week Diverticulosis S/p cholecystectomy H/o AVR on Warfarin -- Currently eating - seems better. Probably would benefit from addition of Reglan - hard to tell how/if she takes this at home. Agree w/ PPI. Note has Colestid - she's unaware of this. ANANT OLIVAREZ May 04, 2018 11:18
[2018-05-04] MEDS: FLUTICASONE 50MCG/NASAL SPRAY 16GM BOTTLE. NS SCH ×2 (12:07→21:50)
[2018-05-04] MEDS: PREGABALIN 50 MG CAPSULE PO SCH ×2 (12:07→21:51)
[2018-05-04] MEDS: DIVALPROEX DELAYED RELEASE 500 MG TABLET.DR. PO SCH ×2 (12:08→21:54)
[2018-05-04] MEDS: LEVOTHYROXINE 25 MCG TABLET. PO SCH (12:10)
[2018-05-04] MEDS: POTASSIUM CHLORIDE 20 MEQ TABLET.ER. PO SCH ×2 (12:11→18:22)
[2018-05-04] MEDS: TOPIRAMATE 25 MG TABLET. PO SCH ×2 (12:11→21:53)
[2018-05-04] MEDS: CETIRIZINE HCL 10 MG TABLET. PO SCH (12:12)
[2018-05-04] MEDS: FLUoxetine HCL 20 MG CAPSULE PO SCH (12:12)
[2018-05-04] MEDS: PANTOPRAZOLE 40 MG TABLET.DR. PO SCH (12:12)
[2018-05-04] MEDS: BENZTROPINE MESYLATE 1 MG TABLET. PO SCH ×2 (12:13→21:54)
[2018-05-04] MEDS: METOPROLOL TART IMMED RELEASE 25 MG TABLET. PO SCH ×2 (12:14→21:53)
[2018-05-04] MEDS: ISOSORBIDE MONONITRATE ER 30 MG TAB.ER.24H PO SCH (12:15)
[2018-05-04] MEDS: LISINOPRIL 20 MG TABLET PO SCH (12:16)
[2018-05-04] MEDS: traMADol 50 MG TABLET PO PRN ×2 (16:03→21:53)
[2018-05-04] MEDS: COLESTIPOL HCL 1 GM TABLET PO SCH ×2 (16:03→21:51)
[2018-05-04] MEDS: WARFARIN 5 MG TABLET. PO SCH (16:05)
[2018-05-04] MEDS ORDERED: LURASIDONE 40 MG TABLET. PO SCH (21:00)
[2018-05-04] MEDS ORDERED: QUEtiapine 100 MG TABLET. PO SCH (21:00)
[2018-05-04] MEDS ORDERED: ATORVASTATIN CALCIUM 10 MG TABLET. PO SCH (21:00)
[2018-05-04] MEDS ORDERED: MONTELUKAST SODIUM 10 MG TABLET. PO SCH (21:00)
[2018-05-04] MEDS ORDERED: OLANZapine 5 MG TABLET PO SCH (21:00)
[2018-05-05 03:22] VITALS: BP 119/62
[2018-05-05] MEDS: LEVOTHYROXINE 25 MCG TABLET. PO SCH (06:27)
[2018-05-05 07:00] VITALS: BP 124/67
[2018-05-05] MEDS: PANTOPRAZOLE 40 MG TABLET.DR. PO SCH (07:52)
[2018-05-05] MEDS: FLUTICASONE 50MCG/NASAL SPRAY 16GM BOTTLE. NS SCH (07:52)
[2018-05-05] MEDS: BENZTROPINE MESYLATE 1 MG TABLET. PO SCH (07:52)
[2018-05-05] MEDS: POTASSIUM CHLORIDE 20 MEQ TABLET.ER. PO SCH (07:52)
[2018-05-05] MEDS: PREGABALIN 50 MG CAPSULE PO SCH (07:53)
[2018-05-05] MEDS: DIVALPROEX DELAYED RELEASE 500 MG TABLET.DR. PO SCH (07:53)
[2018-05-05] MEDS: COLESTIPOL HCL 1 GM TABLET PO SCH ×2 (07:53→15:37)
[2018-05-05] MEDS: TOPIRAMATE 25 MG TABLET. PO SCH (07:53)
[2018-05-05] MEDS: CETIRIZINE HCL 10 MG TABLET. PO SCH (07:53)
[2018-05-05] MEDS: FLUoxetine HCL 20 MG CAPSULE PO SCH (07:53)
[2018-05-05] MEDS: METOPROLOL TART IMMED RELEASE 25 MG TABLET. PO SCH (07:54)
[2018-05-05] MEDS: traMADol 50 MG TABLET PO PRN (07:54)
[2018-05-05] MEDS: LISINOPRIL 20 MG TABLET PO SCH (07:55)
[2018-05-05] MEDS: ISOSORBIDE MONONITRATE ER 30 MG TAB.ER.24H PO SCH (07:55)
[2018-05-05] MEDS ORDERED: FUROSEMIDE 40 MG TABLET. PO SCH (09:00)
--- NOTE | 2018-05-05 10:04 | PDOC ---
PROGRESS NOTES Subjective Subjective no cp today ,pain in abd Objective Objective Vital Signs Date Time Temp Pulse Resp B/P (MAP) Pulse Ox O2 Delivery O2 Flow Rate FiO2 05/05/18 08:54 95 Room Air 05/05/18 07:55 62 124/67 05/05/18 07:00 97.5 18 97.5 05/04/18 23:17 94.0 Intake and Output 05/05/18 07:00 Intake Total 1390 ml Output Total 1300 ml Balance 90 ml Intake Oral 1390 ml Output Urine Total 1300 ml Physical Exam Abdomen: Soft, No tenderness Heart: Regular rate (SR), Other (audible click) Extremities: No cyanosis, No edema General: Alert, Oriented X3, Cooperative, No acute distress HEENT: Atraumatic, Mucous membr. moist/pink Lungs: Clear to auscultation, Normal air movement MUSCULOSKELETAL: Osteoarthritic changes both hands Neuro: Normal speech, Sensation intact Psych/Mental Status: Mental status NL, Mood NL Skin: No breakdown, No significant lesion Assessment Assessment FINAL IMPRESSION: 1. Chest pain in a patient with a known history of coronary artery disease, previous cardiac stents in the past. 2. Mechanical aortic valve replacement, on Coumadin. INR is therapeutic. 3. History of schizophrenia. 4. Hypertension. 5. Hyperlipidemia. 6. Hypothyroidism. 7. Depression. 8. History of abdominal pain, had EGD and colonoscopy. We will review with the reports on that. PLAN: EKG neg troponin neg. cleared by cardiology GI seen pt ,no new recommendations.?diverticulosis. d/c home today on tramadol. Plan at this time is admit to hospital. Serial cardiac enzymes and EKG. shelter monitor. Cardiology is consulted. Pain control and see how the patient responds to treatment. Comment Review of Relevant I have reviewed the following items yonathan (where applicable) has been applied. Labs Laboratory Tests Test 05/05/18 01:05 Troponin I Quantitative < 0.017 ng/mL (0.000-0.055) Medications Current Medications Albuterol Sulfate (Ventolin Neb Soln) 2.5 mg PRN Q4HRS PRN NEB SHORTNESS OF BREATH; Start 05/04/18 at 10:15 Atorvastatin Calcium (Lipitor) 10 mg QHS PO Last administered on 05/04/18at 21: 53; Start 05/04/18 at 21:00 Benztropine Mesylate (Cogentin) 1 mg BID PO Last administered on 05/05/18 07: 52; Start 05/04/18 at 11:00 Cetirizine HCl (ZyrTEC) 10 mg DAILY PO Last administered on 05/05/18 07:53; Start 05/04/18 at 10:30 Colestipol HCl (Colestid) 1 gm TID PO Last administered on 05/05/18 07:53; Start 05/04/18 at 14:00 Divalproex Sodium (Depakote Er) 500 mg BID PO ; Start 05/04/18 at 11:00; Stop at 11:00; Status DC Divalproex Sodium (Depakote) 500 mg BID PO Last administered on 05/05/18 07:53 ; Start 05/04/18 at 11:00 Fluoxetine HCl (PROzac) 20 mg DAILY PO Last administered on 05/05/18 07:53; Start 05/04/18 at 11:00 Fluticasone Propionate (Flonase) 2 spray BID NS Last administered on 05/05/18 07:52; Start 05/04/18 at 11:00 Furosemide (Lasix) 40 mg QODAY PO Last administered on 05/05/18 08:20; Start 05/05/18 at 09:00 Isosorbide Mononitrate (Imdur) 30 mg DAILY PO Last administered on 05/05/18 07 :55; Start 05/04/18 at 11:00 Levothyroxine Sodium (Synthroid) 25 mcg DAILY07 PO Last administered on 06:27; Start 05/04/18 at 11:00 Lisinopril (Prinivil) 20 mg DAILY PO Last administered on 05/05/18 07:55; Start 05/04/18 at 11:00 Lurasidone HCl (Latuda) 20 mg QHS PO Last administered on 05/04/18 21:53; Start 05/04/18 at 21:00 Metoprolol Tartrate (Lopressor) 25 mg BID PO Last administered on 05/05/18 07: 54; Start 05/04/18 at 11:00 Montelukast Sodium (Singulair) 10 mg QHS PO Last administered on 05/04/18 21: 51; Start 05/04/18 at 21:00 Nitroglycerin (Nitrostat) 0.4 mg PRN Q5MIN PRN SL CHEST PAIN; Start 05/04/18 at 10:15 Olanzapine (ZyPREXA) 15 mg QHS PO Last administered on 05/04/18 21:53; Start 05/04/18 at 21:00 Pantoprazole Sodium (Protonix) 40 mg DAILYAC PO Last administered on 05/05/18 07:52; Start 05/04/18 at 11:00 Potassium Chloride (Klor-Con) 20 meq BIDWMEALS PO Last administered on 07:52; Start 05/04/18 at 11:00 Pregabalin (Lyrica) 50 mg BID PO Last administered on 05/05/18 07:53; Start at 11:00 Quetiapine Fumarate (SEROquel) 100 mg QHS PO Last administered on 05/04/18 21: 53; Start 05/04/18 at 21:00 Topiramate (Topamax) 25 mg BID PO Last administered on 05/05/18 07:53; Start 05/04/18 at 11:00 Tramadol HCl (Ultram) 50 mg PRN Q6HRS PRN PO PAIN MILD Last administered on 07:54; Start 05/04/18 at 15:15 Warfarin Sodium (Coumadin Per Physician) 1 each PRN DAILY PRN MC SEE COMMENTS Last administered on 05/04/18at 16:02; Start 05/04/18 at 10:30 Warfarin Sodium (Coumadin) 5 mg DAILY16 PO Last administered on 05/04/18at 16:05 ; Start 05/04/18 at 16:00 Zolpidem Tartrate (Ambien) 5 mg PRN QHS PRN PO INSOMNIA; Start 05/04/18 at 10: 15 Vitals/I & O Vital Sign - Last 24 Hours 05/04/18 05/04/18 05/04/18 05/04/18 10:59 11:53 12:14 12:15 Temp 97.9 97.9 Pulse 62 75 75 Resp 16 B/P (MAP) 130/66 (87) 130/66 130/66 Pulse Ox 95 96 O2 Delivery Room Air Room Air 05/04/18 05/04/18 05/04/18 05/04/18 12:16 14:11 16:03 19:30 Temp 97.9 98.4 97.9 98.4 Pulse 75 60 60 Resp 16 18 B/P (MAP) 130/66 129/68 (88) 117/60 (79) Pulse Ox 93 93 94 O2 Delivery Room Air Room Air Room Air 05/04/18 05/04/18 05/04/18 05/04/18 20:00 21:53 21:53 23:17 Temp 97.5 97.5 Pulse 60 71 Resp 21 B/P (MAP) 117/60 157/53 (87) Pulse Ox 94 O2 Delivery Room Air Room Air Room Air O2 Flow Rate 94.0 05/05/18 05/05/18 05/05/18 05/05/18 03:22 07:00 07:54 07:54 Temp 97.9 97.5 97.9 97.5 Pulse 60 59 62 Resp 18 18 B/P (MAP) 119/62 (81) 124/67 (86) 124/67 Pulse Ox 95 92 95 O2 Delivery Room Air Room Air Room Air 05/05/18 05/05/18 05/05/18 07:55 07:55 08:54 Pulse 62 62 B/P (MAP) 124/67 124/67 Pulse Ox 95 O2 Delivery Room Air Intake and Output 05/04/18 05/04/18 05/05/18 15:00 23:00 07:00 Intake Total 0 ml 1090 ml 300 ml Output Total 900 ml 400 ml Balance 0 ml 190 ml -100 ml NICOLE SMITH MD May 05, 2018 10:04
[2018-05-05 10:05] LABS: PROTHROMBIN TIME PATIENT 22.8 SEC (11.7-14.0)
[2018-05-05] MEDS ORDERED: TRAM50TA PO (10:08)
[2018-05-05 11:03] VITALS: BP 98/57
--- NOTE | 2018-05-05 11:06 | PDOC ---
Subjective: Subjective: Eating w/o n/v - in fact, she tells me today she hasn't vomited in 3 weeks. Left-sided abd pain is worse w/ coughing. "Stomach is churning." Denies chest pain. Says stooling. Objective: Objective: Per RN - DC today? Says primary wanted to know about other GI recommendations. Vital Signs: Vital Signs Date Time Temp Pulse Resp B/P (MAP) Pulse Ox O2 Delivery O2 Flow Rate FiO2 05/05/18 08:54 95 Room Air 05/05/18 07:55 62 124/67 05/05/18 07:00 97.5 18 97.5 05/04/18 23:17 94.0 Labs: Laboratory Tests Test 05/05/18 01:05 05/05/18 08:30 Troponin I Quantitative < 0.017 ng/mL Prothrombin Time 22.8 SEC Prothromb Time International Ratio 2.1 PE: GEN: NAD LUNGS: CTAB HEART: RRR ABD: LLQ muscular tenderness - also in region of bruise she says from [facility] NEURO/PSYCH: A & O 3 A/P: Chronic left-sided pain N/v, H/o gastroparesis, GERD, diverticulosis -- Difficult to tell how she feels, story changes significantly. Regardless, eating w/o vomiting here. Abd pain might be muscular or related to Lovenox bruise. 'Scopes last week. Not on Reglan here, will add. Continue PPI. DC per primary, suspect compliance an issue at home. ANANT OLIVAREZ May 05, 2018 11:06
[2018-05-05] MEDS: METOCLOPRAMIDE ORAL SOLN 10 MG/10 ML SOLUTION. PO SCH ×2 (12:24→16:30)
[2018-05-05 14:50] VITALS: BP 82/54
[2018-05-05 15:24] VITALS: BP 100/58
[2018-05-05] MEDS: WARFARIN 5 MG TABLET. PO SCH (15:38)
== END 2018-05-05 17:07 | disposition home health service (06) | DRG 392 ==
LOC: ER 18:48 → 5 NORTH 20:25 → 2 NORTH 22:38
PROVIDERS: ADMIT Family Medicine; ATTEND Internal Medicine
DX: K21.9 Gastro-esophageal reflux disease without esophagitis (principal); E03.9 Hypothyroidism, unspecified; E78.5 Hyperlipidemia, unspecified; F20.9 Schizophrenia, unspecified; F32.9 Major depressive disorder, single episode, unspecified; F41.9 Anxiety disorder, unspecified; G47.419 Narcolepsy without cataplexy; I10 Essential (primary) hypertension; I25.10 Atherosclerotic heart disease of native coronary artery without angina pectoris; I25.2 Old myocardial infarction; I35.9 Nonrheumatic aortic valve disorder, unspecified; I48.91 Unspecified atrial fibrillation; J44.9 Chronic obstructive pulmonary disease, unspecified; K57.90 Diverticulosis of intestine, part unspecified, without perforation or abscess without bleeding; Z79.01 Long term (current) use of anticoagulants; G89.29 Other chronic pain; Z82.49 Family history of ischemic heart disease and other diseases of the circulatory system; Z86.73 Personal history of transient ischemic attack (TIA), and cerebral infarction without residual deficits; Z83.3 Family history of diabetes mellitus; Z90.49 Acquired absence of other specified parts of digestive tract; Z90.710 Acquired absence of both cervix and uterus; Z95.2 Presence of prosthetic heart valve; Z95.5 Presence of coronary angioplasty implant and graft; Z88.0 Allergy status to penicillin; Z88.2 Allergy status to sulfonamides; Z88.8 Allergy status to other drugs, medicaments and biological substances; Z91.040 Latex allergy status
CPT/HCPCS: 36415; 71045; 80048; 80053; 80307; 81001; 82553; 83735; 83880; 84443; 84484; 85025; 85610; 87086; 93005; J2405; J3010; J8597; 99285-25; G0479

== ENCOUNTER → 2018-05-12 | Outpatient (CLI) | payer OTHER ==
[2018-05-05 15:24] VITALS: BP 100/58
[~2018-05-12] MED LIST changes: +COLE1TAB2 PO; +DIVA-53 PO; +ISOS30TA4 PO; +QUET100T4 PO; +TOPI25TA7 PO
--- NOTE | 2018-05-12 09:46 | RAD ---
DATE: 05/12/2018 EXAM: MAMMO BEBETO SCREENING BILATERAL HISTORY: Routine screening COMPARISON: 01/03/2016 This study was interpreted with the benefit of Computerized Aided Detection (CAD). The breast parenchyma is heterogeneously dense, which could reduce sensitivity of mammography. Breast parenchyma level C. FINDINGS: 2-D and 3-D tomosynthesis imaging was performed in CC and MLO projections. No new or enlarging breast densities are seen. Minimal benign type calcifications are present. No suspicious microcalcifications have developed. IMPRESSION: Stable mammograms without evidence of malignancy. BI-RADS CATEGORY: 2 BENIGN FINDING(S) RECOMMENDED FOLLOW-UP: 12M 12 MONTH FOLLOW-UP PQRS compliance statement: Patient information was entered into a reminder system with a target due date for the next mammogram. Mammography is a sensitive method for finding small breast cancers, but it does not detect them all and is not a substitute for careful clinical examination. A negative mammogram does not negate a clinically suspicious finding and should not result in delay in biopsying a clinically suspicious abnormality. "Our facility is accredited by the [employer] Mammography Program."
== END | disposition home or self-care (01) ==
LOC: MAMMO 08:41
PROVIDERS: ATTEND Family Medicine
DX: Z12.31 Encounter for screening mammogram for malignant neoplasm of breast (principal); I11.0 Hypertensive heart disease with heart failure; I50.9 Heart failure, unspecified; E03.9 Hypothyroidism, unspecified; G43.909 Migraine, unspecified, not intractable, without status migrainosus; K21.9 Gastro-esophageal reflux disease without esophagitis; J44.9 Chronic obstructive pulmonary disease, unspecified; Z87.891 Personal history of nicotine dependence; Z85.3 Personal history of malignant neoplasm of breast; Z90.49 Acquired absence of other specified parts of digestive tract; Z90.710 Acquired absence of both cervix and uterus; Z86.010 Personal history of colon polyps; Z86.2 Personal history of diseases of the blood and blood-forming organs and certain disorders involving the immune mechanism; Z88.2 Allergy status to sulfonamides; Z88.1 Allergy status to other antibiotic agents; Z88.0 Allergy status to penicillin; Z88.8 Allergy status to other drugs, medicaments and biological substances
CPT/HCPCS: 77063; 77067

== ENCOUNTER 2018-08-31 11:54 | Observation (INO) | payer OTHER ==
[~2018-08-31] VITALS: Ht 154.9 cm; Wt 91.3 kg
[~2018-08-31 11:54] MED LIST changes: +HYDR-3164 PO; -HYDR-971 PO
--- NOTE | 2018-08-31 12:25 | PHYS DOC ---
Past Medical History Past Medical History: A-Fib, Anxiety, Bipolar, CVA, Hypertension, NH, Schizophrenia, Other Additional Past Medical Histor: HALLUCINATIONS, AORTIC VALVE DISORDERS, mi 1996 , kidney problems Past Surgical History: Cholecystectomy, Pacemaker, Other Additional Past Surgical Histo: HERNIA REPAIR, AORTIC VALVE REPLACEMENT Alcohol Use: None Drug Use: None Adult General Chief Complaint Chief Complaint: CHEST PAIN HPI HPI Patient is a 58 year old female presents with 30 minutes of chest pain described as sharp feeling and poking her in association with numbness of the left arm in addition she is having a severe migraine headache described as a throbbing headache associated with light sensitivity similar to her prior migraines. She also has some numbness in her left leg that has been there for over a month. She does have a history of known coronary artery disease status post stent placement as well as artificial heart valve on Coumadin who last had chest pain over a month ago. Review of Systems Review of Systems Constitutional: Denies fever or chills [] Eyes: Denies change in visual acuity, redness, or eye pain [] HENT: Denies nasal congestion or sore throat [] Respiratory: Mild shortness of breath Cardiovascular: No additional information not addressed in HPI [] GI: Denies abdominal pain, nausea, vomiting, bloody stools or diarrhea [] : Denies dysuria or hematuria [] Musculoskeletal: Denies back pain or joint pain [] Integument: Denies rash or skin lesions [] Neurologic: Denies headache, focal weakness or sensory changes [] Endocrine: Denies polyuria or polydipsia [] All other systems were reviewed and found to be within normal limits, except as documented in this note. Current Medications Current Medications Current Medications Medications (Trade) Dose Ordered Sig/Galilea Start Time Stop Time Status Last Admin Dose Admin Acetaminophen (Tylenol) 1,000 mg 1X ONCE 08/31/18 12:30 08/31/18 12:31 DC 08/31/18 13:13 1,000 MG Nitroglycerin (Nitrostat) 0.4 mg PRN Q5MIN PRN 08/31/18 12:30 Prochlorperazine Edisylate (Compazine) 10 mg 1X ONCE 08/31/18 12:30 08/31/18 12:31 DC 08/31/18 13:13 10 MG Allergies Allergies Allergies Coded Allergies Type Severity Reaction Last Updated Verified Sulfa (Sulfonamide Antibiotics) Allergy Severe rash, tongue swelling 04/15/15 Yes Iodinated Contrast- Oral and IV Dye Allergy Intermediate rash 04/15/15 Yes Penicillins Allergy Intermediate Hives 04/15/15 Yes aspirin Allergy Intermediate Hives 04/15/15 Yes codeine Allergy Intermediate Hives; SEE COMMENT 06/08/15 Yes diphenhydramine HCl Allergy Intermediate rash 12/19/13 Yes latex Allergy Intermediate Rash 12/18/13 Yes Physical Exam Physical Exam Constitutional: Well developed, well nourished, no acute distress, non-toxic appearance. [] HENT: Normocephalic, atraumatic, bilateral external ears normal, oropharynx moist, no oral exudates, nose normal. [] Eyes: PERRLA, EOMI, conjunctiva normal, no discharge. [] Neck: Normal range of motion, no tenderness, supple, no stridor. [] Cardiovascular:Heart rate regular rhythm, 2/6 murmur noted Lungs & Thorax: Bilateral breath sounds clear to auscultation [] Abdomen: Bowel sounds normal, soft, no tenderness, no masses, no pulsatile masses. [] Skin: Warm, dry, no erythema, no rash. [] Back: No tenderness, no CVA tenderness. [] Extremities: No tenderness, no cyanosis, no clubbing, ROM intact, no edema. [] Neurologic: Alert and oriented X 3, normal motor function, normal sensory function, no focal deficits noted. []Some decreased sensation to light touch in the left lower extremity think is also limited strength exam somewhat due to pain i think pt says has muscle pain after a recent fall. Psychologic: Affect normal, judgement normal, mood normal. [] Current Patient Data Vital Signs Vital Signs Date Time Temp Pulse Resp B/P (MAP) Pulse Ox O2 Delivery O2 Flow Rate FiO2 08/31/18 11:55 97.6 74 17 159/89 (112) 97 Room Air 97.6 Lab Values Laboratory Tests Test 08/31/18 13:01 White Blood Count 4.9 x10^3/uL (4.0-11.0) Red Blood Count 4.90 x10^6/uL (3.50-5.40) Hemoglobin 14.2 g/dL (12.0-15.5) Hematocrit 41.6 % (36.0-47.0) Mean Corpuscular Volume 85 fL (79-100) Mean Corpuscular Hemoglobin 29 pg (25-35) Mean Corpuscular Hemoglobin Concent 34 g/dL (31-37) Red Cell Distribution Width 14.2 % (11.5-14.5) Platelet Count 164 x10^3/uL (140-400) Neutrophils (%) (Auto) 63 % (31-73) Lymphocytes (%) (Auto) 25 % (24-48) Monocytes (%) (Auto) 10 % (0-9) H Eosinophils (%) (Auto) 2 % (0-3) Basophils (%) (Auto) 1 % (0-3) Neutrophils # (Auto) 3.1 x10^3uL (1.8-7.7) Lymphocytes # (Auto) 1.2 x10^3/uL (1.0-4.8) Monocytes # (Auto) 0.5 x10^3/uL (0.0-1.1) Eosinophils # (Auto) 0.1 x10^3/uL (0.0-0.7) Basophils # (Auto) 0.0 x10^3/uL (0.0-0.2) Prothrombin Time 24.9 SEC (11.7-14.0) H Prothrombin Time INR 2.3 (0.8-1.1) H Sodium Level 141 mmol/L (136-145) Potassium Level 3.6 mmol/L (3.5-5.1) Chloride Level 104 mmol/L (98-107) Carbon Dioxide Level 27 mmol/L (21-32) Anion Gap 10 (6-14) Blood Urea Nitrogen 18 mg/dL (7-20) Creatinine 0.7 mg/dL (0.6-1.0) Estimated GFR (Cockcroft-Gault) 85.9 BUN/Creatinine Ratio 26 (6-20) H Glucose Level 91 mg/dL (70-99) Calcium Level 9.2 mg/dL (8.5-10.1) Total Bilirubin 0.6 mg/dL (0.2-1.0) Aspartate Amino Transferase (AST) 24 U/L (15-37) Alanine Aminotransferase (ALT) 31 U/L (14-59) Alkaline Phosphatase 84 U/L (46-116) Troponin I Quantitative < 0.017 ng/mL (0.000-0.055) [id number]-Type Natriuretic Peptide 78 pg/mL (0-124) Total Protein 7.0 g/dL (6.4-8.2) Albumin 3.5 g/dL (3.4-5.0) Albumin/Globulin Ratio 1.0 (1.0-1.7) Laboratory Tests 08/31/18 13:01 Laboratory Tests 08/31/18 13:01 EKG EKG []EKG shows normal sinus rhythm with a rate of 89 there are no obvious acute ischemic changes noted this was interpreted by me the time of encounter nonspecific changes in V2 could potentially be lead placement. Radiology/Procedures Radiology/Procedures [] Impressions: v FINDINGS: The cardiac silhouette is unremarkable. The lungs are clear bilaterally. The costophrenic sulci are clear and well demarcated. Left-sided cardiac pacer is identified. Calcified mediastinal lymph nodes identified. IMPRESSION: No radiographic evidence of an acute cardiopulmonary process. Electronically signed by: Clem Castro MD (08/31/2018 12:31 PM) [id number] DICTATED and SIGNED BY: CLEM CASTRO MD DATE: 08/31/18 1226 Course & Med Decision Making Course & Med Decision Making Pertinent Labs and Imaging studies reviewed. (See chart for details) []Aspirin was not given due to aspirin allergy. cp, therapeutic inr does not sound like pe or dissection also had migraine but felt better after compazine no asymmetric signs noted. <Conclusion> Aortic root pressure of 136/74. Coronaries. Left main: the left main had no lesions. Left anterior descending vessel. The LAD had a mid 20% lesion. Left circumflex. The left circumflex had no lesions. Right coronary artery. The right coronary had multiple stents that were all widely patent. DICTATED and SIGNED BY: DAT MIMS MD DATE: 11/17/13 1000 CC: RUBIO CASTELLANOS feels better after the above treatment in the er see note above for recent cardiac cath. will admit for serial troponins and r/ o. d/w leif. recommends cardiology consult to tanner. Augustin Disclaimer Augustin Disclaimer This electronic medical record was generated, in whole or in part, using a voice recognition dictation system. Departure Departure Impression: Primary Impression: Chest pain Disposition: ADMITTED INPATIENT Admitting Physician: Elizabeth Hudson Condition: STABLE Referrals: RUBIO CASTELLANOS (PCP) BESS HEALY MD Aug 31, 2018 12:25
[2018-08-31] MEDS ORDERED: PROCHLORPERAZINE 10 MG/2 ML VIAL. IV ONE (12:30)
[2018-08-31] MEDS ORDERED: NITROGLYCERIN SUBLINGUAL 0.4 MG BOTTLE OF 25. SL PRN ×2 (12:30→19:15)
[2018-08-31] MEDS ORDERED: ACETAMINOPHEN 500 MG TABLET PO ONE (12:30)
--- NOTE | 2018-08-31 12:34 | RAD ---
EXAM: CHEST 1 VIEW History: Shortness of breath COMPARISON: 05/03/2018 TECHNIQUE: Single portable radiograph of the chest FINDINGS: The cardiac silhouette is unremarkable. The lungs are clear bilaterally. The costophrenic sulci are clear and well demarcated. Left-sided cardiac pacer is identified. Calcified mediastinal lymph nodes identified. IMPRESSION: No radiographic evidence of an acute cardiopulmonary process. Electronically signed by: Clem Castro MD (08/31/2018 12:31 PM) [id number]
--- NOTE | 2018-08-31 12:40 | EKG ---
[facility] [address] [place] [address] Test Date: 2018-08-31 Test Time: 12:00:32 Pat Name: RHETT HERNANDEZ Department: Room: Gender: F Director Personal: : 1960 Requested By: BESS HEALY Order Number: [id number] Reading MD: Measurements Intervals [place] Rate: 89 P: -56 ID: [id number] QRS: 11 QRSD: 84 T: 50 QT: 380 QTc: 463 Interpretive Statements SINUS RHYTHM NO SPECIFIC ECG ABNORMALITIES RI6.01 No previous ECG available for comparison
[2018-08-31 13:17] LABS: BASO % 1 % (0-3); EOS # 0.1 x10^3/uL (0.0-0.7); EOS % 2 % (0-3); HEMATOCRIT 41.6 % (36.0-47.0); HEMOGLOBIN 14.2 g/dL (12.0-15.5); LYMPH # 1.2 x10^3/uL (1.0-4.8); LYMPH % 25 % (24-48); MEAN CORPUSCULAR HEMOGLOBIN 29 pg (25-35); MEAN CORPUSCULAR HGB CONC 34 g/dL (31-37); MEAN CORPUSCULAR VOLUME 85 fL (79-100); MONO # 0.5 x10^3/uL (0.0-1.1); MONO % 10 % (0-9); NEUT # 3.1 x10^3uL (1.8-7.7); NEUT % 63 % (31-73); PLATELET COUNT 164 x10^3/uL (140-400); RED CELL DISTRIBUTION WIDTH 14.2 % (11.5-14.5); WHITE BLOOD COUNT 4.9 x10^3/uL (4.0-11.0)
[2018-08-31 13:26] LABS: PROTHROMBIN TIME PATIENT 24.9 SEC (11.7-14.0)
[2018-08-31 13:32] LABS: CALCIUM 9.2 mg/dL (8.5-10.1); CREATININE 0.7 mg/dL (0.6-1.0); GFR 85.9; POTASSIUM 3.6 mmol/L (3.5-5.1)
[2018-08-31 13:37] LABS: ALBUMIN 3.5 g/dL (3.4-5.0); TOTAL BILIRUBIN 0.6 mg/dL (0.2-1.0)
[2018-08-31] MEDS ORDERED: ONDANSETRON PF 4 MG/2 ML VIAL. IV PRN (17:15)
[2018-08-31 17:18] VITALS: BP 132/67
[2018-08-31] MEDS: HYDROcodone/APAP 5/325MG 1 TAB TABLET PO PRN (17:27)
[2018-08-31] MEDS ORDERED: ZOLPIDEM 5 MG TABLET. PO PRN (19:15)
[2018-08-31] MEDS ORDERED: ALBUTEROL SULFATE 2.5 MG/3 ML NEBU. NEB PRN (19:15)
[2018-08-31 19:17] VITALS: BP 123/63
[2018-08-31] MEDS: PREGABALIN 50 MG CAPSULE PO SCH (20:29)
[2018-08-31] MEDS: TOPIRAMATE 25 MG TABLET. PO SCH (20:29)
[2018-08-31] MEDS: BENZTROPINE MESYLATE 1 MG TABLET. PO SCH (20:29)
[2018-08-31] MEDS: traMADol 50 MG TABLET PO PRN (20:30)
[2018-08-31] MEDS: METOPROLOL TART IMMED RELEASE 25 MG TABLET. PO SCH (20:31)
[2018-08-31] MEDS: POTASSIUM CHLORIDE 20 MEQ TABLET.ER. PO SCH (20:31)
[2018-08-31] MEDS: COLESTIPOL HCL 1 GM TABLET PO SCH (20:33)
[2018-08-31] MEDS: FLUTICASONE 50MCG/NASAL SPRAY 16GM BOTTLE. NS SCH (20:34)
[2018-08-31] MEDS: WARFARIN 5 MG TABLET. PO SCH (20:35)
[2018-08-31] MEDS ORDERED: LURASIDONE 40 MG TABLET. PO SCH (21:00)
[2018-08-31] MEDS ORDERED: OLANZapine 5 MG TABLET PO SCH (21:00)
[2018-08-31] MEDS ORDERED: MONTELUKAST SODIUM 10 MG TABLET. PO SCH (21:00)
[2018-08-31] MEDS ORDERED: QUEtiapine 100 MG TABLET. PO SCH (21:00)
[2018-08-31] MEDS ORDERED: ATORVASTATIN CALCIUM 10 MG TABLET. PO SCH (21:00)
[2018-08-31 23:37] VITALS: BP 119/65
[2018-09-01 03:56] VITALS: BP 129/54
[2018-09-01] MEDS ORDERED: LEVOTHYROXINE 25 MCG TABLET. PO SCH (06:00)
[2018-09-01 07:00] VITALS: BP 118/62
[2018-09-01 07:12] LABS: PROTHROMBIN TIME PATIENT 25.1 SEC (11.7-14.0)
[2018-09-01] MEDS ORDERED: PANTOPRAZOLE 40 MG TABLET.DR. PO SCH (07:30)
[2018-09-01 08:00] LABS: CHOLESTEROL/HDL RATIO 3.9
[2018-09-01] MEDS: FLUTICASONE 50MCG/NASAL SPRAY 16GM BOTTLE. NS SCH (08:33)
[2018-09-01] MEDS: traMADol 50 MG TABLET PO PRN (08:35)
[2018-09-01] MEDS: BENZTROPINE MESYLATE 1 MG TABLET. PO SCH (08:35)
[2018-09-01] MEDS: TOPIRAMATE 25 MG TABLET. PO SCH (08:35)
[2018-09-01] MEDS: METOPROLOL TART IMMED RELEASE 25 MG TABLET. PO SCH (08:36)
[2018-09-01] MEDS: POTASSIUM CHLORIDE 20 MEQ TABLET.ER. PO SCH ×2 (08:36→17:41)
[2018-09-01] MEDS: PREGABALIN 50 MG CAPSULE PO SCH (08:37)
[2018-09-01] MEDS: COLESTIPOL HCL 1 GM TABLET PO SCH ×2 (08:37→14:18)
[2018-09-01] MEDS ORDERED: ISOSORBIDE MONONITRATE ER 30 MG TAB.ER.24H PO SCH (09:00)
[2018-09-01] MEDS ORDERED: FLUoxetine HCL 20 MG CAPSULE PO SCH (09:00)
[2018-09-01] MEDS ORDERED: CETIRIZINE HCL 10 MG TABLET. PO SCH (09:00)
[2018-09-01] MEDS ORDERED: LISINOPRIL 20 MG TABLET PO SCH (09:00)
[2018-09-01] MEDS ORDERED: FUROSEMIDE 40 MG TABLET. PO SCH (09:00)
--- NOTE | 2018-09-01 09:55 | PDOC2 ---
CARDIAC CONSULT DATE OF CONSULT Date of Consult DATE: 09/01/18 TIME: 09:37 REASON FOR CONSULT Reason for Consult: Chest pain REFERRING PHYSICIAN Referring Physician: German SOURCE Source: Chart review, Patient HISTORY OF PRESENT ILLNESS HISTORY OF PRESENT ILLNESS This is a pleasant 58 yo female admitted for complains of nausea and chest pain. Reports that her chest pain which is sharp that started yesterday after vomiting twice. She has been dry heaving. Her sharp left chest pain radiated to her left back. No falls or any injuries. No palpitations, chronic coughing. She has been vomiting regularly in the last week and has hx of gastroparesis. Reports compliance with her medications. No recent fever or chills. No blood in vomit nor black stools. No exertional CP nor WHEELER. It also hurts sometimes for her to take deep breath. PAST MEDICAL HISTORY Past Medical History Cardiovascular: CAD, HTN, Hyperlipidemia Pulmonary: Asthma, COPD GI: GERD, GI bleed, colitis, gastroparesis Heme/Onc: No pertinent hx Psych: Anxiety, Bipolar, Depression, Schizophrenia, Other (narcolepsy) Musculoskeletal: Osteoarthritis, lower back injury Infectious disease: No pertinent hx ENT: No pertinent hx Renal/: No pertinent hx Endocrine: No pertinent hx Dermatology: No pertinent hx PAST SURGICAL HISTORY Past Surgical History Cholecystectomy, Hysterectomy, Other (mechanical aortic valve), PPM, Multiple PCIs with stents FAMILY HISTORY Family History: Diabetes SOCIAL HISTORY Smoke: No ALCOHOL: none Drugs: None CURRENT MEDICATIONS CURRENT MEDICATIONS Current Medications Medications (Trade) Dose Ordered Sig/Galilea Route PRN Reason Start Time Stop Time Status Last Admin Dose Admin Prochlorperazine Edisylate (Compazine) 10 mg 1X ONCE IV 08/31/18 12:30 08/31/18 12:31 DC 08/31/18 13:13 Acetaminophen (Tylenol) 1,000 mg 1X ONCE PO 08/31/18 12:30 08/31/18 12:31 DC 08/31/18 13:13 Ondansetron HCl (Zofran) 8 mg PRN Q6HRS PRN IV NAUSEA/VOMITING 08/31/18 17:15 08/31/18 17:26 Acetaminophen/ Hydrocodone Bitart (Lortab 5/325) 1 tab PRN Q6HRS PRN PO PAIN 08/31/18 17:15 08/31/18 17:27 Atorvastatin Calcium (Lipitor) 10 mg QHS PO 08/31/18 21:00 08/31/18 20:28 Colestipol HCl (Colestid) 1 gm TID PO 08/31/18 21:00 09/01/18 08:37 Fluticasone Propionate (Flonase) 2 spray BID NS 08/31/18 21:00 09/01/18 08:33 Furosemide (Lasix) 40 mg QODAY PO 09/01/18 09:00 09/01/18 08:33 Isosorbide Mononitrate (Imdur) 30 mg DAILY PO 09/01/18 09:00 09/01/18 08:37 Lisinopril (Prinivil) 20 mg DAILY PO 09/01/18 09:00 09/01/18 08:36 Lurasidone HCl (Latuda) 20 mg QHS PO 08/31/18 21:00 08/31/18 20:28 Metoprolol Tartrate (Lopressor) 25 mg BID PO 08/31/18 21:00 09/01/18 08:36 Pregabalin (Lyrica) 50 mg BID PO 08/31/18 21:00 09/01/18 08:37 Tramadol HCl (Ultram) 50 mg PRN Q6HRS PRN PO PAIN MILD 08/31/18 19:15 09/01/18 08:35 Zolpidem Tartrate (Ambien) 5 mg PRN QHS PRN PO INSOMNIA 08/31/18 19:15 08/31/18 20:28 Benztropine Mesylate (Cogentin) 1 mg BID PO 08/31/18 21:00 09/01/18 08:35 Levothyroxine Sodium (Synthroid) 25 mcg DAILY06 PO 09/01/18 06:00 09/01/18 07:20 Montelukast Sodium (Singulair) 10 mg QHS PO 08/31/18 21:00 08/31/18 20:32 Olanzapine (ZyPREXA) 15 mg QHS PO 08/31/18 21:00 08/31/18 20:33 Pantoprazole Sodium (Protonix) 40 mg DAILYAC PO 09/01/18 07:30 09/01/18 08:35 Quetiapine Fumarate (SEROquel) 100 mg QHS PO 08/31/18 21:00 08/31/18 20:30 Topiramate (Topamax) 25 mg BID PO 08/31/18 21:00 09/01/18 08:35 Warfarin Sodium (Coumadin) 5 mg DAILY16 PO 08/31/18 20:00 08/31/18 20:35 Fluoxetine HCl (PROzac) 20 mg DAILY PO 09/01/18 09:00 09/01/18 08:35 Potassium Chloride (Klor-Con) 20 meq BIDWMEALS PO 08/31/18 21:00 09/01/18 08:36 Cetirizine HCl (ZyrTEC) 10 mg DAILY PO 09/01/18 09:00 09/01/18 08:34 Warfarin Sodium (Coumadin Per Physician) 1 each PRN DAILY PRN MC SEE COMMENTS 08/31/18 20:15 09/01/18 08:46 ALLERGIES ALLERGIES: Coded Allergies: Sulfa (Sulfonamide Antibiotics) (Verified Allergy, Severe, rash, tongue swelling, 04/15/15) Iodinated Contrast- Oral and IV Dye (Verified Allergy, Intermediate, rash , 04/15/15) Penicillins (Verified Allergy, Intermediate, Hives, 04/15/15) aspirin (Verified Allergy, Intermediate, Hives, 04/15/15) codeine (Verified Allergy, Intermediate, Hives; SEE COMMENT, 06/08/15) PT REPORTS TAKING LORTAB WITHOUT COMPLICATIONS, PER ED diphenhydramine HCl (Verified Allergy, Intermediate, rash, 12/19/13) latex (Verified Allergy, Intermediate, Rash, 12/18/13) ROS Review of System 14 point ROS evaluated with pertinent positives noted per HPI PHYSICAL EXAM General: Alert, Oriented X3, Cooperative, No acute distress HEENT: Atraumatic, Mucous membr. moist/pink Lungs: Clear to auscultation, Normal air movement Heart: Regular rate (SR), Normal S1, Normal S2, Other (audible valvular click to GREGORIO border) Abdomen: Soft, No tenderness Extremities: No cyanosis, Other (trace LE edema) Skin: No breakdown, No significant lesion Neuro: Normal speech, Sensation intact Psych/Mental Status: Mental status NL, Mood NL MUSCULOSKELETAL: Osteoarthritic changes both hands VITALS VITALS Vital Signs Date Time Temp Pulse Resp B/P (MAP) Pulse Ox O2 Delivery O2 Flow Rate FiO2 09/01/18 08:37 62 118/62 09/01/18 08:35 20 Room Air 09/01/18 07:00 97.4 94 97.4 LABS Lab: Laboratory Tests Test 08/31/18 13:01 08/31/18 17:55 09/01/18 00:15 09/01/18 06:35 White Blood Count 4.9 x10^3/uL (4.0-11.0) Red Blood Count 4.90 x10^6/uL (3.50-5.40) Hemoglobin 14.2 g/dL (12.0-15.5) Hematocrit 41.6 % (36.0-47.0) Mean Corpuscular Volume 85 fL (79-100) Mean Corpuscular Hemoglobin 29 pg (25-35) Mean Corpuscular Hemoglobin Concent 34 g/dL (31-37) Red Cell Distribution Width 14.2 % (11.5-14.5) Platelet Count 164 x10^3/uL (140-400) Neutrophils (%) (Auto) 63 % (31-73) Lymphocytes (%) (Auto) 25 % (24-48) Monocytes (%) (Auto) 10 % (0-9) Eosinophils (%) (Auto) 2 % (0-3) Basophils (%) (Auto) 1 % (0-3) Neutrophils # (Auto) 3.1 x10^3uL (1.8-7.7) Lymphocytes # (Auto) 1.2 x10^3/uL (1.0-4.8) Monocytes # (Auto) 0.5 x10^3/uL (0.0-1.1) Eosinophils # (Auto) 0.1 x10^3/uL (0.0-0.7) Basophils # (Auto) 0.0 x10^3/uL (0.0-0.2) Prothrombin Time 24.9 SEC (11.7-14.0) 25.1 SEC (11.7-14.0) Prothromb Time International Ratio 2.3 (0.8-1.1) 2.3 (0.8-1.1) Sodium Level 141 mmol/L (136-145) Potassium Level 3.6 mmol/L (3.5-5.1) Chloride Level 104 mmol/L (98-107) Carbon Dioxide Level 27 mmol/L (21-32) Anion Gap 10 (6-14) Blood Urea Nitrogen 18 mg/dL (7-20) Creatinine 0.7 mg/dL (0.6-1.0) Estimated GFR (Cockcroft-Gault) 85.9 BUN/Creatinine Ratio 26 (6-20) Glucose Level 91 mg/dL (70-99) Calcium Level 9.2 mg/dL (8.5-10.1) Total Bilirubin 0.6 mg/dL (0.2-1.0) Aspartate Amino Transf (AST/SGOT) 24 U/L (15-37) Alanine Aminotransferase (ALT/SGPT) 31 U/L (14-59) Alkaline Phosphatase 84 U/L (46-116) Troponin I Quantitative < 0.017 ng/mL (0.000-0.055) < 0.017 ng/mL (0.000-0.055) < 0.017 ng/mL (0.000-0.055) < 0.017 ng/mL (0.000-0.055) SZ-Mor-C-Type Natriuretic Peptide 78 pg/mL (0-124) Total Protein 7.0 g/dL (6.4-8.2) Albumin 3.5 g/dL (3.4-5.0) Albumin/Globulin Ratio 1.0 (1.0-1.7) Triglycerides Level 210 mg/dL (0-150) Cholesterol Level 144 mg/dL (0-200) LDL Cholesterol, Calculated 65 mg/dL (0-100) VLDL Cholesterol, Calculated 42 mg/dL (0-40) Non-HDL Cholesterol Calculated 107 mg/dL (0-129) HDL Cholesterol 37 mg/dL (40-60) Cholesterol/HDL Ratio 3.9 ECHOCARDIOGRAM ECHOCARDIOGRAM <Conclusion> The left ventricular systolic function is normal. The ejection fraction is estimated at 60%. There is normal LV segmental wall motion. There is a pacemaker lead in the right atrium and right ventricle. The mechanical prosthetic aortic valve appears well seated. Prosthetic valve not well interrogated but there appears to be atleast mild valvular aortic stenosis with mean pressure gradient of 26.5 mmHg. Mild mitral regurgitation. Mild to moderate tricuspid regurgitation. There is no evidence of significant pericardial effusion. DATE: 02/14/18 8476 STRESS TEST STRESS TEST Conclusion 1. No EKG evidence of stressed induced ischemia. 2. Nuclear imaging shows no reversible ischemia or infarct. 3. Normal left ventricular systolic function with an ejection fraction of greater than 70%. 4. Low risk Lexiscan nuclear stress test. DATE: 10/26/17 1245 ASSESSMENT/PLAN ASSESSMENT/PLAN 1. Atypical CP:suspect GI still has been vomiting, vomited x1 yesterday. Noncardiac 2. CAD: with multiple stents to RCA in 2012. Last [facility] 2014 with nonobstructive disease. MPI recent as above. No rhythm ectopies. 3. PPM in situ: hx of SSS. (medtronic) 5. AVR: mechanical valve. 6. Chronic coumadin therapy: INR 2.3 7. HTN: controlled 8. HLP: 9. Known gastroparesis with gastric polyps Recommendations 1. Prefers INR at 2.5-3.5 goal. Continue coumadin therapy 2. Continue with secondary prevention as tolerated. 3. Continue GI regimen per PCP. 4. TTE to note mechanical AV. CLEVELAND LUNDBERG APRN Sep 01, 2018 09:55
--- NOTE | 2018-09-01 10:25 | PDOC ---
Provider Note Provider Note Pt seen.H&P dictated. #[id number] NICOLE SMITH MD Sep 01, 2018 10:25
--- NOTE | 2018-09-01 10:48 | HP ---
ADMIT DATE: 08/31/2018 ATTENDING PHYSICIAN: Dr. Smith. PRIMARY CARE PHYSICIAN: Dr. West. REASON FOR ADMISSION TO THE HOSPITAL: Chest pain. HISTORY OF PRESENT ILLNESS: The patient is a 58-year-old female. The patient was having chest pain, mostly left side of the shoulder going to the back. She has a known history of coronary artery disease, previous stents. She also had a mechanical aortic valve and she also had a pacemaker and multiple cardiac stents. The patient was having pain, has some nausea, came to the Emergency Room. EKG, cardiac enzymes negative, was admitted for observation. Cardiology was consulted. PAST MEDICAL HISTORY: Has history of coronary artery disease, hypertension, hyperlipidemia, COPD, GERD, ischemic colitis, gastroparesis, anxiety, depression, schizophrenia, bipolar, narcolepsy, osteoarthritis. PAST SURGICAL HISTORY: Gallbladder surgery, hysterectomy, has a mechanical aortic valve, has a pacemaker, multiple cardiac stents. FAMILY HISTORY: Positive for diabetes, hypertension, heart disease. SOCIAL HISTORY: Denies smoking, alcohol or drug abuse. ALLERGIES: IODINATED CONTRAST, PENICILLIN, SULFA, ASPIRIN, CODEINE, BENADRYL, LATEX. MEDICATIONS AT HOME: Atorvastatin 10 mg daily, Colestid 1 g t.i.d., Flonase daily, Lasix 40 mg daily, isosorbide 30 mg daily, lisinopril 20 mg daily, Latuda 20 mg at bedtime, metoprolol 25 mg twice a day, Lyrica 50 mg twice a day, tramadol 50 mg q. 6, Ambien 5 mg daily, Cogentin 1 mg twice a day, levothyroxine 25 mcg daily, Singulair 10 mg daily, Zyprexa 15 mg at bedtime, Protonix 40 mg daily, Seroquel 100 mg at bedtime, Topamax 25 mg twice a day, Coumadin 5 mg daily, Prozac 20 mg daily, potassium 20 mEq twice a day, Zyrtec 10 mg daily. REVIEW OF SYMPTOMS: CARDIAC: She has pain in the left side. Has some nausea, has some Charley horse in the legs. No fever. Rest of the 14-system was reviewed and negative. PHYSICAL EXAMINATION: GENERAL: The patient is sitting in chair, dozing off. VITAL SIGNS: Temperature 97, pulse 62, respirations 16, blood pressure 118/62 and 92% on room air. HEENT: Head is atraumatic. The patient has unequal pupil, left side is larger and she has this for a long time. Oral cavity, dentures. NECK: Supple. Thyroid not enlarged. JVD not elevated. CHEST: Symmetrical. Has a scar of heart surgery, aortic valve. She also has a pacemaker at left side of chest. CARDIOVASCULAR: S1, S2. Click present. LUNGS: Clear to auscultation. No wheezing. ABDOMEN: Soft, bowel sounds present, no mass palpable. EXTERNAL GENITALIA: No Siu. RECTAL: Deferred. EXTREMITIES: No calf tenderness, no edema. The patient has a point tenderness in the left shoulder area, especially pain, worse with the left shoulder movement. SKIN: Normal skin turgor. NEUROLOGICAL: No focal deficits noted. LABORATORY DATA: White count is 5, hemoglobin 14, platelets 164. INR is 2.3. Electrolytes show sodium 141, potassium 3.6, chloride 104, bicarbonate 27, BUN 18, creatinine 0.7, glucose 91. LFTs were normal. Chest x-ray was negative. EKG negative for ischemia. FINAL IMPRESSION: 1. Chest pain, going to the left shoulder as well as to the back. Rule out coronary artery disease. 2. Known history of coronary artery disease, history of multiple cardiac stents. 3. History of aortic valve replacement, mechanical valve, on Coumadin. INR is therapeutic. 4. History of pacemaker for sick sinus syndrome. 5. Anxiety and depression, schizophrenia. 6. Gastroesophageal reflux disease. 7. Hyperlipidemia. PLAN: At this time, the patient was admitted for observation and seen by Cardiology, echocardiogram, cardiac enzymes and EKG was negative, and the patient should be able to be discharged later this evening. NICOLE SMITH MD DR: ISAMAR/cori JOB#: [id number] / [id number] RUBIO Birch
[2018-09-01 11:10] VITALS: BP 99/47
[2018-09-01] MEDS: HYDROcodone/APAP 5/325MG 1 TAB TABLET PO PRN (14:18)
[2018-09-01 15:00] VITALS: BP 96/55
[2018-09-01] MEDS: WARFARIN 5 MG TABLET. PO SCH (16:03)
--- NOTE | 2018-09-01 18:03 | CARD ---
MR#: [id number] Date of Study: 09/01/2018 Ordering Physician: CLEVELAND LUNDBERG, Referring Physician: NICOLE SMITH Tech: APPROVED REPORT EXAM: Two-dimensional and M-mode echocardiogram with Doppler and color Doppler. INDICATION Aortic Valve Disease Surgery/Intervention Status/Post Aortic Valve Replacement: Mechanical Pacemaker: 2D DIMENSIONS Left Atrium(2D)3.4 (1.6-4.0cm)IVSd1.0 (0.7-1.1cm) Aortic Root(2D)3.4 (2.0-3.7cm)LVDd4.8 (3.9-5.9cm) PWd1.2 (0.7-1.1cm)LVDs2.7 (2.5-4.0cm) FS (%) 44.8 %SV83.2 ml Aortic Valve AoV Peak Garcia.308.9cm/sAoV VTI67.3cm AO Peak GR.38.2mmHgLVOT VTI 20.08cm AO Mean GR.21mmHg Mitral Valve MV E Xuqhbvvc46.6cm/sMV DECEL [id number] MV A Gtyifmog28.9cm/sE/A Ratio1.2 LEFT VENTRICLE Technically difficult study. The left ventricle is normal size. There is borderline concentric left v entricular hypertrophy. The left ventricular systolic function is normal and the ejection fraction is within normal range. The Ejection Fraction is estimated at 50%. RIGHT VENTRICLE The right ventricle is normal size. There is normal right ventricular wall thickness. There is a dannie ce lead in the right ventricle. ATRIA The left atrium is borderline dilated. The right atrium size is normal. The interatrial septum is int act with no evidence for an atrial septal defect or patent foramen ovale as noted on 2-D or Doppler i maging. AORTIC VALVE Doppler and Color Flow revealed trace aortic regurgitation. Calculated aortic valve area is 1.4 cm2 w ith maximum pressure gradient of 38 mmHg and mean pressure gradient of 22 mmHg. There is a mechanical aortic valve prosthesis. The prosthetic aortic valve appears normal. MITRAL VALVE The mitral valve is normal in structure and function. There is no evidence of mitral valve prolapse. There is no mitral valve stenosis. Doppler and Color-flow revealed trace to mild mitral regurgitation . TRICUSPID VALVE The tricuspid valve is not well visualized. Doppler and Color Flow revealed trace to mild tricuspid r egurgitation. There is no tricuspid valve stenosis. PULMONIC VALVE The pulmonic valve is not well visualized. Doppler and Color Flow revealed mild to moderate pulmonic valvular regurgitation. GREAT VESSELS The aortic root is normal in size. The IVC was not visualized. PERICARDIAL EFFUSION There is no evidence of significant pericardial effusion. Critical Notification Critical Value: No <Conclusion> Technically difficult study. The left ventricle is normal size. The left ventricular systolic function is normal and the ejection fraction is within normal range. The Ejection Fraction is estimated at 50%. There is borderline concentric left ventricular hypertrophy. There is a mechanical aortic valve prosthesis. The prosthetic aortic valve appears normal. Calculated aortic valve area is 1.4 cm2 with maximum pressure gradient of 38 mmHg and mean pressure g radient of 22 mmHg. Doppler and Color-flow revealed trace to mild mitral regurgitation. Doppler and Color Flow revealed trace to mild tricuspid regurgitation. Signed by : Salo Patel MD Electronically Approved : 09/01/2018 18:01:44
[2018-09-01] MEDS ORDERED: BACL10TA PO (18:13)
[2018-09-01] MEDS ORDERED: OXYC1TAB15 PO (18:13)
--- NOTE | 2018-09-01 20:53 | CONS ---
DATE OF CONSULTATION: 09/01/2018 ATTENDING PHYSICIAN: Dr. Hudson. REASON FOR CONSULTATION: The patient was seen at the request of Dr. Hudson for evaluation about her left shoulder and left lower extremity pain. HISTORY OF PRESENT ILLNESS: This is a 58-year-old female, right handed, known to me. The patient with old cerebrovascular accident, with residual mild left hemiparesis. She complains of pain over left shoulder blade area with radiation to her left shoulder and also left calf cramping kind of pain going on for a while. She was admitted on 08/31/2018 with chest pain. She had mechanical aortic valve also with known coronary artery disease, previous stenting, also had permanent pacemaker and multiple cardiac stents. The patient had some nausea. She was admitted through the Emergency Room where EKG and cardiac enzymes were negative. The patient also with known hypertension, chronic obstructive pulmonary disease, gastroesophageal reflux disease, ischemic colitis, gastroparesis, anxiety, depression, schizophrenia, bipolar disorder, narcolepsy, osteoarthritis, status post cholecystectomy, hysterectomy. The patient had a family history of diabetes mellitus, hypertension, and heart disease. ALLERGIES: SHE IS KNOWN ALLERGIC TO PENICILLIN, SULFA, ASPIRIN, CODEINE, BENADRYL and LATEX. SOCIAL HISTORY: The patient lives with her . PHYSICAL EXAMINATION: Today revealed a middle-aged female. She is alert, oriented to time, place, person and circumstance and follows commands appropriately. The patient had tenderness to palpation over left posterior shoulder girdle muscles and left calf. She had 5/5 grade muscle strength in her extremities, slightly decreased sensory perception over left side of her body. No obvious visual field cut or facial asymmetry or communication or cognitive or swallowing deficits noted. The patient had 1-2+ deep tendon reflexes and absent ankle jerks bilaterally. The patient had mild crepitus on range of motion of both knee joints without any obvious knee joint effusion and she had pain-free range of motion of both hip joints. She had minimal tenderness to palpation over the sacroiliac joint area and straight leg raising test is negative bilaterally. She is independent with bed mobility, transfers, and up walking using a cane without any limping. Her skin is intact at this time. ASSESSMENT: A middle-aged female with old cerebrovascular accident with mild left hemiparesis. The patient with left posterior shoulder girdle muscle strain and also left calf tenderness to rule out deep venous thrombosis. Apparently, she had this left calf pain for a long time. She also presents with mild degenerative joints of both knees, chronic lower back pain from degenerative disk disease of lumbar vertebrae without any clinical evidence of ongoing lumbar radiculopathy. The patient with known coronary artery disease, hypertension, hyperlipidemia, chronic obstructive pulmonary disease, gastroesophageal reflux disease, ischemic colitis, gastroparesis, anxiety, depression, schizophrenia, bipolar disorder, narcolepsy and osteoarthritis, status post permanent pacemaker placement and mechanical aortic valve. RECOMMENDATIONS: I have instructed her in a home program of physical modalities and trigger point massage and relax stretching exercise to her left shoulder girdle muscles, physical modalities and stretching exercise to her left calf and advised to continue using cane while up and I gave her a prescription for baclofen for muscle spasm and Percocet for pain, not controlled by tramadol, which she has been taking right now and admits not helping much and to arrange for ultrasound of her left leg to rule out any deep venous thrombosis, which can be done on an outpatient basis after her discharge as she was discharged home this afternoon after my evaluation. As she had this left calf pain going on for a while, I do not see any need for it to be done today before her discharge. I would like to see her for followup if her pain persists and to consider a course of outpatient physical therapy to help ease her left shoulder girdle muscle strain pain. Dr. Hudson, I appreciate asking me to participate in the care of this interesting patient. TOMMY NIETO MD DR: JAH/cori JOB#: [id number] / [id number]
[2018-09-01] MEDS ORDERED: DIVALPROEX DELAYED RELEASE 500 MG TABLET.DR. PO SCH (21:00)
== END 2018-09-01 18:38 | disposition home or self-care (01) ==
LOC: ER 11:54 → 2 SOUTH 14:19 → UNDOADMIN 16:42 → 2 SOUTH 16:42
PROVIDERS: ADMIT Internal Medicine; ATTEND Internal Medicine
DX: R07.89 Other chest pain (principal); E78.5 Hyperlipidemia, unspecified; F20.9 Schizophrenia, unspecified; F31.9 Bipolar disorder, unspecified; F41.9 Anxiety disorder, unspecified; G89.29 Other chronic pain; I10 Essential (primary) hypertension; I25.10 Atherosclerotic heart disease of native coronary artery without angina pectoris; J44.9 Chronic obstructive pulmonary disease, unspecified; K21.9 Gastro-esophageal reflux disease without esophagitis; M19.90 Unspecified osteoarthritis, unspecified site; M51.36 Other intervertebral disc degeneration, lumbar region; Z79.01 Long term (current) use of anticoagulants; Z82.49 Family history of ischemic heart disease and other diseases of the circulatory system; Z83.3 Family history of diabetes mellitus; Z90.49 Acquired absence of other specified parts of digestive tract; Z90.710 Acquired absence of both cervix and uterus; Z95.0 Presence of cardiac pacemaker; Z95.2 Presence of prosthetic heart valve; Z95.5 Presence of coronary angioplasty implant and graft
CPT/HCPCS: 36415; 71045; 80053; 80061; 83880; 84484; 85025; 85610; 93005; 93306; 96374; 96375; 99284; G0378; J0780; J2405; G0379; 99285-25

== ENCOUNTER 2018-10-02 13:42 | Emergency (ER) | payer OTHER ==
[~2018-10-02] VITALS: Ht 154.9 cm; Wt 85.7 kg
[~2018-10-02 13:42] MED LIST changes: +BACL10TA PO; +OXYC1TAB15 PO
[2018-10-02 14:21] LABS: BASO % 0 % (0-3); EOS # 0.1 x10^3/uL (0.0-0.7); EOS % 1 % (0-3); HEMATOCRIT 41.9 % (36.0-47.0); HEMOGLOBIN 14.6 g/dL (12.0-15.5); LYMPH # 1.7 x10^3/uL (1.0-4.8); LYMPH % 23 % (24-48); MEAN CORPUSCULAR HEMOGLOBIN 30 pg (25-35); MEAN CORPUSCULAR HGB CONC 35 g/dL (31-37); MEAN CORPUSCULAR VOLUME 85 fL (79-100); MONO # 0.5 x10^3/uL (0.0-1.1); MONO % 6 % (0-9); NEUT # 5.2 x10^3uL (1.8-7.7); NEUT % 70 % (31-73); PLATELET COUNT 199 x10^3/uL (140-400); RED BLOOD COUNT 4.94 x10^6/uL (3.50-5.40); RED CELL DISTRIBUTION WIDTH 13.8 % (11.5-14.5); WHITE BLOOD COUNT 7.4 x10^3/uL (4.0-11.0)
[2018-10-02 14:30] LABS: CALCIUM 9.1 mg/dL (8.5-10.1); CREATININE 0.8 mg/dL (0.6-1.0); GFR 73.7; POTASSIUM 3.9 mmol/L (3.5-5.1)
[2018-10-02 14:33] LABS: PROTHROMBIN TIME PATIENT 27.2 SEC (11.7-14.0)
[2018-10-02 14:35] LABS: ALBUMIN 3.6 g/dL (3.4-5.0); TOTAL BILIRUBIN 0.4 mg/dL (0.2-1.0); TOTAL PROTEIN 7.1 g/dL (6.4-8.2)
--- NOTE | 2018-10-02 14:35 | RAD ---
Exam performed: One view chest. Indication: SYNCOPE Date of Service: 10/02/2018 2:06 PM Comparison: None available. Single AP upright portable view chest findings: Cardiomediastinal silhouette is within upper limits of normal. Bipolar pacemaker. Previous median sternotomy No acute infiltrates, effusion or pneumothorax is detected. The bony structures are normal. Impression: Stable one view chest Electronically signed by: Chanelle Palomares MD (10/02/2018 2:31 PM) [facility]
--- NOTE | 2018-10-02 14:47 | RAD ---
Exam performed: CT scan of the head without contrast. Date of Service: 10/05/2018. Comparison: CT head without contrast from 09/09/2018. Clinical History: [place] Technique: Helical acquisitions are obtained from the foramen magnum to the vertex without intravenous administration of contrast. Findings: There is prominence of cortical sulci and ventricular system compatible with age related atrophy. There are areas of low-attenuation in both periventricular deep white matter suggesting small vessel ischemic changes. Normal velázquez-white differentiation is maintained. There is no extra axial fluid collection, intraparenchymal hemorrhage or mass lesion. The visualized portions of the orbits, paranasal sinuses and the mastoid air cells appear clear. The calvarium is intact. Impression: 1. Age-appropriate atrophy without any acute intracranial process. PQRS Compliance Statement: One or more of the following individualized dose reduction techniques were utilized for this examination: 1. Automated exposure control 2. Adjustment of the mA and/or kV according to patient size 3. Use of iterative reconstruction technique Electronically signed by: Chanelle Palomares MD (10/02/2018 2:42 PM) [facility]
--- NOTE | 2018-10-02 15:00 | PHYS DOC ---
Past Medical History Past Medical History: A-Fib, Anxiety, Bipolar, CVA, Hypertension, OR, Schizophrenia, Other Additional Past Medical Histor: HALLUCINATIONS, AORTIC VALVE DISORDERS, mi 1996 , kidney problems Past Surgical History: Cholecystectomy, Pacemaker, Other Additional Past Surgical Histo: HERNIA REPAIR, AORTIC VALVE REPLACEMENT Alcohol Use: None Drug Use: None Adult General Chief Complaint Chief Complaint: SYNCOPE HPI HPI Patient is a 58 year old female who presents with a reported syncopal episode by her . He states that they were at the [facility] and he was unable to wake her. He states that when EMS got there she did respond to EMS. She had some residual nausea and a headache. The patient has recently been admitted here several times for falls as well as chest pain. 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 She is alert and oriented talking in the room with me. She denies changes in vision, diaphoresis or radiating chest pain. Review of Systems Review of Systems Constitutional: Denies fever or chills [] Eyes: Denies change in visual acuity, redness, or eye pain [] HENT: Denies nasal congestion or sore throat [] Respiratory: Denies cough or shortness of breath [] Cardiovascular: No additional information not addressed in HPI [] GI: See history of present illness : Denies dysuria or hematuria [] Musculoskeletal: Denies back pain or joint pain [] Integument: Denies rash or skin lesions [] Neurologic: See history of present illness Endocrine: Denies polyuria or polydipsia [] All other systems were reviewed and found to be within normal limits, except as documented in this note. Current Medications Current Medications Current Medications Medications (Trade) Dose Ordered Sig/Galilea Start Time Stop Time Status Last Admin Dose Admin Ketorolac Tromethamine (Toradol Im) 60 mg 1X ONCE 10/02/18 15:30 10/02/18 15:35 DC 10/02/18 15:46 60 MG Metoclopramide HCl (Reglan Vial) 10 mg 1X ONCE 10/02/18 15:30 10/02/18 15:31 DC 10/02/18 15:45 10 MG Allergies Allergies Allergies Coded Allergies Type Severity Reaction Last Updated Verified Sulfa (Sulfonamide Antibiotics) Allergy Severe rash, tongue swelling 04/15/15 Yes Iodinated Contrast- Oral and IV Dye Allergy Intermediate rash 04/15/15 Yes Penicillins Allergy Intermediate Hives 04/15/15 Yes aspirin Allergy Intermediate Hives 04/15/15 Yes codeine Allergy Intermediate Hives; SEE COMMENT 06/08/15 Yes diphenhydramine HCl Allergy Intermediate rash 12/19/13 Yes latex Allergy Intermediate Rash 12/18/13 Yes Physical Exam Physical Exam Constitutional: Well developed, well nourished, no acute distress, non-toxic appearance. [] HENT: Normocephalic, atraumatic, bilateral external ears normal, oropharynx moist, no oral exudates, nose normal. [] Eyes: PERRLA, EOMI, conjunctiva normal, no discharge. [] Neck: Normal range of motion, no tenderness, supple, no stridor. [] Cardiovascular:Heart rate regular rhythm, no murmur [] Lungs & Thorax: Bilateral breath sounds clear to auscultation [] Abdomen: Bowel sounds normal, soft, no tenderness, no masses, no pulsatile masses. [] Skin: Warm, dry, no erythema, no rash. [] Back: No tenderness, no CVA tenderness. [] Extremities: No tenderness, no cyanosis, no clubbing, ROM intact, no edema. [] Neurologic: Alert and oriented X 3, normal motor function, normal sensory function, no focal deficits noted, cranial nerves II through XII are grossly intact. [] Psychologic: Affect normal, judgement normal, mood normal. [] Current Patient Data Vital Signs Vital Signs Date Time Temp Pulse Resp B/P (MAP) Pulse Ox O2 Delivery O2 Flow Rate FiO2 10/02/18 16:19 60 125/61 (82) 96 Room Air 10/02/18 15:19 17 10/02/18 13:54 97.5 97.5 Lab Values Laboratory Tests Test 10/02/18 14:10 10/02/18 14:50 White Blood Count 7.4 x10^3/uL (4.0-11.0) Red Blood Count 4.94 x10^6/uL (3.50-5.40) Hemoglobin 14.6 g/dL (12.0-15.5) Hematocrit 41.9 % (36.0-47.0) Mean Corpuscular Volume 85 fL (79-100) Mean Corpuscular Hemoglobin 30 pg (25-35) Mean Corpuscular Hemoglobin Concent 35 g/dL (31-37) Red Cell Distribution Width 13.8 % (11.5-14.5) Platelet Count 199 x10^3/uL (140-400) Neutrophils (%) (Auto) 70 % (31-73) Lymphocytes (%) (Auto) 23 % (24-48) L Monocytes (%) (Auto) 6 % (0-9) Eosinophils (%) (Auto) 1 % (0-3) Basophils (%) (Auto) 0 % (0-3) Neutrophils # (Auto) 5.2 x10^3uL (1.8-7.7) Lymphocytes # (Auto) 1.7 x10^3/uL (1.0-4.8) Monocytes # (Auto) 0.5 x10^3/uL (0.0-1.1) Eosinophils # (Auto) 0.1 x10^3/uL (0.0-0.7) Basophils # (Auto) 0.0 x10^3/uL (0.0-0.2) Prothrombin Time 27.2 SEC (11.7-14.0) H Prothrombin Time INR 2.5 (0.8-1.1) H PTT 43 SEC (24-38) H Sodium Level 139 mmol/L (136-145) Potassium Level 3.9 mmol/L (3.5-5.1) Chloride Level 105 mmol/L (98-107) Carbon Dioxide Level 23 mmol/L (21-32) Anion Gap 11 (6-14) Blood Urea Nitrogen 21 mg/dL (7-20) H Creatinine 0.8 mg/dL (0.6-1.0) Estimated GFR (Cockcroft-Gault) 73.7 BUN/Creatinine Ratio 26 (6-20) H Glucose Level 113 mg/dL (70-99) H Calcium Level 9.1 mg/dL (8.5-10.1) Total Bilirubin 0.4 mg/dL (0.2-1.0) Aspartate Amino Transferase (AST) 19 U/L (15-37) Alanine Aminotransferase (ALT) 26 U/L (14-59) Alkaline Phosphatase 95 U/L (46-116) TI-Brw-S-Type Natriuretic Peptide 368 pg/mL (0-124) H Total Protein 7.1 g/dL (6.4-8.2) Albumin 3.6 g/dL (3.4-5.0) Albumin/Globulin Ratio 1.0 (1.0-1.7) Urine Collection Type Unknown Urine Color Yellow Urine Clarity Clear Urine pH 6.5 Urine Specific [place] 1.025 Urine Protein Negative mg/dL (NEG-TRACE) Urine Glucose (UA) Negative mg/dL (NEG) Urine Ketones (Stick) Negative mg/dL (NEG) Urine Blood Negative (NEG) Urine Nitrite Negative (NEG) Urine Bilirubin Negative (NEG) Urine Urobilinogen Dipstick 1.0 mg/dL (0.2 mg/dL) Urine Leukocyte Esterase Negative (NEG) Urine RBC Occ /HPF (0-2) Urine WBC 1-4 /HPF (0-4) Urine Squamous Epithelial Cells Mod /LPF Urine Bacteria Moderate /HPF (0-FEW) Urine Hyaline Casts Few /HPF Urine Mucus Mod /LPF Laboratory Tests 10/02/18 14:10 Laboratory Tests 10/02/18 14:10 EKG EKG [] Radiology/Procedures Radiology/Procedures []Signed PATIENT: RHETT HERNANDEZ ACCOUNT: [id number] : 1960 LOCATION: ER AGE: 58 SEX: F EXAM STATUS: PRE ER ORD. PHYSICIAN: SOFIA SALDIVAR APRN REASON: syncope PROCEDURE: CT HEAD WO CONTRAST Exam performed: CT scan of the head without contrast. Date of Service: 10/05/2018. Comparison: CT head without contrast from 09/09/2018. Clinical History: Syncope today at the [facility]. Technique: Helical acquisitions are obtained from the foramen magnum to the vertex without intravenous administration of contrast. Findings: There is prominence of cortical sulci and ventricular system compatible with age related atrophy. There are areas of low-attenuation in both periventricular deep white matter suggesting small vessel ischemic changes. Normal velázquez-white differentiation is maintained. There is no extra axial fluid collection, intraparenchymal hemorrhage or mass lesion. The visualized portions of the orbits, paranasal sinuses and the mastoid air cells appear clear. The calvarium is intact. Impression: 1. Age-appropriate atrophy without any acute intracranial process. PQRS Compliance Statement: One or more of the following individualized dose reduction techniques were utilized for this examination: 1. Automated exposure control 2. Adjustment of the mA and/or kV according to patient size 3. Use of iterative reconstruction technique Electronically signed by: Chanelle Palomares MD (10/02/2018 2:42 PM) [facility] DICTATED and SIGNED BY: CHANELLE PALOMARES MD DATE: 10/02/18 1437 PATIENT: RHETT HERNANDEZ ACCOUNT: [id number] : 1960 LOCATION: ER AGE: 58 SEX: F EXAM STATUS: PRE ER ORD. PHYSICIAN: SOFIA SALDIVAR APRN REASON: syncope PROCEDURE: CHEST AP ONLY Exam performed: One view chest. Indication: SYNCOPE Date of Service: 10/02/2018 2:06 PM Comparison: None available. Single AP upright portable view chest findings: Cardiomediastinal silhouette is within upper limits of normal. Bipolar pacemaker. Previous median sternotomy No acute infiltrates, effusion or pneumothorax is detected. The bony structures are normal. Impression: Stable one view chest Electronically signed by: Chanelle Palomares MD (10/02/2018 2:31 PM) [facility] DICTATED and SIGNED BY: CHANELLE PALOMARES MD DATE: 10/02/18 1430 Course & Med Decision Making Course & Med Decision Making Pertinent Labs and Imaging studies reviewed. (See chart for details) []The patient's [place] syncope score is negative for admission. She was given Toradol and Reglan in the emergency department for her headache and nausea. Dragon Disclaimer Dragon Disclaimer This electronic medical record was generated, in whole or in part, using a voice recognition dictation system. Departure Departure Impression: Primary Impression: Headache Additional Impressions: Syncope Nausea Disposition: HOME, SELF-CARE Condition: STABLE Referrals: RUBIO CASTELLANOS (PCP) Patient Instructions: General Headache Without Cause, Nausea and Vomiting, Syncope Additional Instructions: Take your at-home medications as directed. Follow-up with your primary care provider tomorrow for a recheck. Keep your cardiology follow-up. If worsening return to the emergency department. Problem Qualifiers SOFIA SALDIVAR APRN Oct 02, 2018 15:00
[2018-10-02 15:03] LABS: BILIRUBIN,URINE NEGATIVE (NEG); CLARITY,URINE CLEAR; COLOR,URINE YELLOW; NITRITE,URINE NEGATIVE (NEG); PH,URINE 6.5; PROTEIN,URINE NEGATIVE (NEG-TRACE)
[2018-10-02 15:18] LABS: BACTERIA,URINE MODERATE /HPF (0-FEW); HYALINE CASTS, URINE FEW /HPF; RBC,URINE OCC /HPF (0-2); SQUAMOUS EPITHELIAL CELL,UR MOD /LPF
[2018-10-02] MEDS ORDERED: METOCLOPRAMIDE HCL 10 MG/2 ML VIAL. IV ONE (15:30)
[2018-10-02] MEDS ORDERED: KETOROLAC 60 MG/2 ML VIAL. IM ONE (15:30)
[2018-10-02 16:19] VITALS: BP 125/61
--- NOTE | 2018-10-02 17:01 | EKG ---
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
== END 2018-10-02 18:06 | disposition home or self-care (01) ==
LOC: ER 13:42
DX: R55 Syncope and collapse (principal); R51 Headache; R11.0 Nausea; I48.91 Unspecified atrial fibrillation; F31.9 Bipolar disorder, unspecified; I10 Essential (primary) hypertension; I25.2 Old myocardial infarction; F20.9 Schizophrenia, unspecified; Z86.73 Personal history of transient ischemic attack (TIA), and cerebral infarction without residual deficits; Z95.0 Presence of cardiac pacemaker; Z90.49 Acquired absence of other specified parts of digestive tract; Z88.2 Allergy status to sulfonamides; Z88.0 Allergy status to penicillin; Z91.041 Radiographic dye allergy status; Z91.040 Latex allergy status; Z88.5 Allergy status to narcotic agent; Z88.6 Allergy status to analgesic agent
CPT/HCPCS: 36415; 70450; 71045; 80053; 81001; 83880; 85025; 85610; 85730; 93005; 96372; 96374; 99285; J1885; J2765; 87086

== ENCOUNTER 2018-10-04 12:46 | Inpatient (IN) | payer OTHER ==
[~2018-10-04] VITALS: Ht 154.9 cm; Wt 88.0 kg
[2018-10-04] MEDS ORDERED: ONDANSETRON PF 4 MG/2 ML VIAL. IV ONE (13:15)
--- NOTE | 2018-10-04 13:28 | EKG ---
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
[2018-10-04 13:29] LABS: BILIRUBIN,URINE NEGATIVE (NEG); CLARITY,URINE CLEAR; COLOR,URINE YELLOW; NITRITE,URINE NEGATIVE (NEG); PROTEIN,URINE NEGATIVE (NEG-TRACE)
[2018-10-04 13:37] LABS: BARBITURATES NEG (NEG); BENZODIAZEPINES NEG (NEG); CANNABINOIDS NEG (NEG); COCAINE NEG (NEG); METHADONE NEG (NEG); OPIATES NEG (NEG); PHENCYCLIDINE NEG (NEG)
[2018-10-04 13:38] LABS: AMPHETAMINE/METHAMPHETAMINE NEG (NEG)
[2018-10-04 13:41] LABS: BACTERIA,URINE MODERATE /HPF (0-FEW); RBC,URINE OCC /HPF (0-2); SQUAMOUS EPITHELIAL CELL,UR MOD /LPF
[2018-10-04 13:43] LABS: BASO % 1 % (0-3); EOS # 0.1 x10^3/uL (0.0-0.7); EOS % 1 % (0-3); HEMATOCRIT 38.9 % (36.0-47.0); HEMOGLOBIN 13.4 g/dL (12.0-15.5); LYMPH # 1.6 x10^3/uL (1.0-4.8); LYMPH % 27 % (24-48); MEAN CORPUSCULAR HEMOGLOBIN 29 pg (25-35); MEAN CORPUSCULAR HGB CONC 35 g/dL (31-37); MEAN CORPUSCULAR VOLUME 85 fL (79-100); MONO # 0.3 x10^3/uL (0.0-1.1); MONO % 6 % (0-9); NEUT # 3.9 x10^3uL (1.8-7.7); NEUT % 66 % (31-73); PLATELET COUNT 187 x10^3/uL (140-400); RED CELL DISTRIBUTION WIDTH 13.8 % (11.5-14.5); WHITE BLOOD COUNT 5.9 x10^3/uL (4.0-11.0)
[2018-10-04 13:52] LABS: PROTHROMBIN TIME PATIENT 28.4 SEC (11.7-14.0)
[2018-10-04 14:01] LABS: ALBUMIN 3.4 g/dL (3.4-5.0); ALBUMIN/GLOBULIN RATIO 1.2 (1.0-1.7); ALK PHOS 92 U/L (46-116); ALT (SGPT) 27 U/L (14-59); ANION GAP 4 (6-14); AST (SGOT) 17 U/L (15-37); BLOOD UREA NITROGEN 17 mg/dL (7-20); BUN/CREATININE RATIO 24 (6-20); CARBON DIOXIDE 27 mmol/L (21-32); CHLORIDE 108 mmol/L (98-107); CREATINE KINASE 38 U/L (26-192); CREATININE 0.7 mg/dL (0.6-1.0); GFR 85.9; GLUCOSE 93 mg/dL (70-99); MAGNESIUM 1.8 mg/dL (1.8-2.4); POTASSIUM 4.1 mmol/L (3.5-5.1); SODIUM 139 mmol/L (136-145); TOTAL BILIRUBIN 0.4 mg/dL (0.2-1.0); TOTAL PROTEIN 6.3 g/dL (6.4-8.2); VAL ACID 6 mcg/mL (50-100)
--- NOTE | 2018-10-04 14:15 | RAD ---
Chest radiograph 10/04/2018 1:30 PM INDICATION: Syncope COMPARISON: 10/02/2018 TECHNIQUE: Portable upright frontal view of the chest is provided. FINDINGS: The cardiomediastinal silhouette is similar in appearance. Left chest wall cardiac device is in similar position. Median sternotomy changes are present. There are no pleural effusions. There is no pulmonary vascular congestion. There is no pneumothorax. Mediastinal calcified lymphadenopathy is present. The lungs are clear. No significant osseous abnormality is identified. IMPRESSION: No acute cardiopulmonary process. Electronically signed by: Alexandra Rangel MD (10/04/2018 2:10 PM) [facility]
--- NOTE | 2018-10-04 14:18 | RAD ---
CT head and cervical spine without contrast History: Syncope, fall the last few days, on Coumadin Technique: Noncontrast CT imaging was performed of the head and cervical spine. Multiplanar reconstruction images are submitted. Exposure: One or more of the following individualized dose reduction techniques were utilized for this examination: 1. Automated exposure control 2. Adjustment of the mA and/or kV according to patient size 3. Use of iterative reconstruction technique. Head CT Comparison: October 02, 2018 Findings: No acute extra-axial or parenchymal hemorrhage is identified. There is no significant intra-axial mass effect, midline shift, or extra-axial fluid collection. The velázquez-white differentiation of the major vascular territories is preserved. Ventricular size is within normal limits. There is again mild supratentorial atrophy. There is a 1.2 cm left maxillary sinus mucous retention cyst. 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 Impression: 1. No acute intracranial abnormality is identified. Cervical spine CT Comparison: May 20, 2017 Findings: No acute cervical spine fracture is identified. Vertebral body stature and AP alignment are within normal limits. Atlanto-axial distance is within normal limits. There is appropriate alignment of lateral masses of C1 relative to C2. Occipital condylar-C1 relationship is maintained. There is mild degenerative disc disease and spondylosis C4-C5. There is multilevel cervical facet degenerative change. There is mild uncovertebral degenerative change C4-5, mild narrowing of the C4-5 neural foramina. There is mild dextroscoliosis. There is a small focus of nonspecific calcification of posterior right thyroid gland. Impression: 1. No acute cervical spine fracture is identified. Electronically signed by: Mario Suárez MD (10/04/2018 2:14 PM) [id number]
--- NOTE | 2018-10-04 14:26 | PHYS DOC ---
Past Medical History Past Medical History: A-Fib, Anxiety, Bipolar, CVA, Hypertension, MD, Schizophrenia, Other Additional Past Medical Histor: HALLUCINATIONS, AORTIC VALVE DISORDERS, mi 1996 , kidney problems Past Surgical History: Cholecystectomy, Pacemaker, Other Additional Past Surgical Histo: HERNIA REPAIR, AORTIC VALVE REPLACEMENT Additional Information: quit smoking 13 years ago Alcohol Use: None Drug Use: None Adult General Chief Complaint Chief Complaint: SYNCOPE HPI HPI Patient is a 58 year old female who presents with complaining of syncope and falls. Patient has history of bipolar disorder and schizophrenia and multiple other medical problems with history of frequent emergency room visits and admission for falls and chest pain was in this emergency room 3 days ago because of syncope and headache and was discharged home with negative evaluation and instructed to follow up with her hand bunch maker. Patient's states she had a fall yesterday from a standing position without loss of consciousness and today had a syncopal episode that last about 20 minutes without seizure activity with a fall complaining of headache and rated her pain 8/10. Patient also complaining of 4 or 5 episodes of vomiting daily for the last 3 days and states she was not able to eat or drink for the last 3 days and complaining of generalized weakness. Patient complaining of numbness of left upper and lower extremity for the last 3 days as a constant problem so denies chest pain, shortness of breath, fever and chills, urinary symptoms, diarrhea constipation and abdominal pain. Review of Systems Review of Systems Constitutional: Denies fever or chills [] Eyes: Denies change in visual acuity, redness, or eye pain [] HENT: Denies nasal congestion or sore throat [] Respiratory: Denies cough or shortness of breath [] Cardiovascular: No additional information not addressed in HPI [] GI: Denies abdominal pain, bloody stools or diarrhea , reports nausea and vomiting[] : Denies dysuria or hematuria [] Musculoskeletal: Denies back pain or joint pain [] Integument: Denies rash or skin lesions [] Neurologic: Reports headache and numbness, denies focal weakness Endocrine: Denies polyuria or polydipsia [] All other systems were reviewed and found to be within normal limits, except as documented in this note. Current Medications Current Medications Current Medications Medications (Trade) Dose Ordered Sig/Galilea Start Time Stop Time Status Last Admin Dose Admin Acetaminophen/ Hydrocodone Bitart (Lortab 5/325) 1 tab 1X ONCE 10/04/18 14:30 10/04/18 14:31 DC 10/04/18 15:00 1 TAB Ondansetron HCl (Zofran) 4 mg 1X ONCE 10/04/18 13:15 10/04/18 13:16 DC 10/04/18 13:37 4 MG Allergies Allergies Allergies Coded Allergies Type Severity Reaction Last Updated Verified Sulfa (Sulfonamide Antibiotics) Allergy Severe rash, tongue swelling 04/15/15 Yes Iodinated Contrast- Oral and IV Dye Allergy Intermediate rash 04/15/15 Yes Penicillins Allergy Intermediate Hives 04/15/15 Yes aspirin Allergy Intermediate Hives 04/15/15 Yes codeine Allergy Intermediate Hives; SEE COMMENT 06/08/15 Yes diphenhydramine HCl Allergy Intermediate rash 12/19/13 Yes latex Allergy Intermediate Rash 12/18/13 Yes Physical Exam Physical Exam Constitutional: Well nourished, mild distress, non-toxic appearance. [] HENT: Normocephalic, atraumatic, bilateral external ears normal, oropharynx moist, no oral exudates, nose normal. [] Eyes: PERRLA, EOMI, conjunctiva normal, no discharge. [] Neck: Normal range of motion, no tenderness, supple, no stridor. [] Cardiovascular:Heart rate regular rhythm, no murmur [] Lungs & Thorax: Bilateral breath sounds clear to auscultation [] Abdomen: Bowel sounds normal, soft, no tenderness, no masses, no pulsatile masses. [] Skin: Warm, dry, no erythema, no rash. [] Back: No tenderness, no CVA tenderness. [] Extremities: No tenderness, no cyanosis, no clubbing, ROM intact, no edema. [] Neurologic: Alert and oriented X 3, normal motor function, subjective decrease of sensation in left upper and lower extremities, no focal deficits noted. [] Psychologic: Affect flat, mood normal. [] Current Patient Data Vital Signs Vital Signs Date Time Temp Pulse Resp B/P (MAP) Pulse Ox O2 Delivery O2 Flow Rate FiO2 10/04/18 14:39 60 122/61 (81) 94 Room Air 10/04/18 13:40 18 10/04/18 13:14 98.3 98.3 Lab Values Laboratory Tests Test 10/04/18 13:00 10/04/18 13:25 Urine Color Yellow Urine Clarity Clear Urine pH 7.0 Urine Specific [place] 1.020 Urine Protein Negative mg/dL (NEG-TRACE) Urine Glucose (UA) Negative mg/dL (NEG) Urine Ketones (Stick) Negative mg/dL (NEG) Urine Blood Negative (NEG) Urine Nitrite Negative (NEG) Urine Bilirubin Negative (NEG) Urine Urobilinogen Dipstick 1.0 mg/dL (0.2 mg/dL) Urine Leukocyte Esterase Negative (NEG) Urine RBC Occ /HPF (0-2) Urine WBC 1-4 /HPF (0-4) Urine Squamous Epithelial Cells Mod /LPF Urine Bacteria Moderate /HPF (0-FEW) Urine Mucus Slight /LPF Urine Opiates Screen Neg (NEG) Urine Methadone Screen Neg (NEG) Urine Barbiturates Neg (NEG) Urine Phencyclidine Screen Neg (NEG) Urine Amphetamine/Methamphetamine Neg (NEG) Urine Benzodiazepines Screen Neg (NEG) Urine Cocaine Screen Neg (NEG) Urine Cannabinoids Screen Neg (NEG) Urine Ethyl Alcohol Neg (NEG) White Blood Count 5.9 x10^3/uL (4.0-11.0) Red Blood Count 4.60 x10^6/uL (3.50-5.40) Hemoglobin 13.4 g/dL (12.0-15.5) Hematocrit 38.9 % (36.0-47.0) Mean Corpuscular Volume 85 fL (79-100) Mean Corpuscular Hemoglobin 29 pg (25-35) Mean Corpuscular Hemoglobin Concent 35 g/dL (31-37) Red Cell Distribution Width 13.8 % (11.5-14.5) Platelet Count 187 x10^3/uL (140-400) Neutrophils (%) (Auto) 66 % (31-73) Lymphocytes (%) (Auto) 27 % (24-48) Monocytes (%) (Auto) 6 % (0-9) Eosinophils (%) (Auto) 1 % (0-3) Basophils (%) (Auto) 1 % (0-3) Neutrophils # (Auto) 3.9 x10^3uL (1.8-7.7) Lymphocytes # (Auto) 1.6 x10^3/uL (1.0-4.8) Monocytes # (Auto) 0.3 x10^3/uL (0.0-1.1) Eosinophils # (Auto) 0.1 x10^3/uL (0.0-0.7) Basophils # (Auto) 0.0 x10^3/uL (0.0-0.2) Prothrombin Time 28.4 SEC (11.7-14.0) H Prothrombin Time INR 2.7 (0.8-1.1) H Sodium Level 139 mmol/L (136-145) Potassium Level 4.1 mmol/L (3.5-5.1) Chloride Level 108 mmol/L (98-107) H Carbon Dioxide Level 27 mmol/L (21-32) Anion Gap 4 (6-14) L Blood Urea Nitrogen 17 mg/dL (7-20) Creatinine 0.7 mg/dL (0.6-1.0) Estimated GFR (Cockcroft-Gault) 85.9 BUN/Creatinine Ratio 24 (6-20) H Glucose Level 93 mg/dL (70-99) Lactic Acid Level 0.5 mmol/L (0.4-2.0) Calcium Level 9.0 mg/dL (8.5-10.1) Magnesium Level 1.8 mg/dL (1.8-2.4) Total Bilirubin 0.4 mg/dL (0.2-1.0) Aspartate Amino Transferase (AST) 17 U/L (15-37) Alanine Aminotransferase (ALT) 27 U/L (14-59) Alkaline Phosphatase 92 U/L (46-116) Creatine Kinase 38 U/L (26-192) Troponin I Quantitative < 0.017 ng/mL (0.000-0.055) FG-Dty-Y-Type Natriuretic Peptide 508 pg/mL (0-124) H Total Protein 6.3 g/dL (6.4-8.2) L Albumin 3.4 g/dL (3.4-5.0) Albumin/Globulin Ratio 1.2 (1.0-1.7) Valproic Acid Level 6 mcg/mL (50-100) L Valproic Acid Last Dose Date 10/03/18 Valproic Acid Last Dose Time 2100 Laboratory Tests 10/04/18 13:25 Laboratory Tests 10/04/18 13:25 EKG EKG EKG interpreted by me. EKG at 1307 showed normal sinus rhythm at rate of 61, no acute ST and T-wave abnormalities. Radiology/Procedures Radiology/Procedures [facility] [address] [place] [address] IMAGING REPORT Signed PATIENT: RHETT HERNANDEZ ACCOUNT: [id number] : 1960 LOCATION: ER AGE: 58 SEX: F EXAM STATUS: REG ER ORD. PHYSICIAN: CHELA ISLAS MD REASON: syncope PROCEDURE: CHEST AP ONLY Chest radiograph 10/04/2018 1:30 PM INDICATION: Syncope COMPARISON: 10/02/2018 TECHNIQUE: Portable upright frontal view of the chest is provided. FINDINGS: The cardiomediastinal silhouette is similar in appearance. Left chest wall cardiac device is in similar position. Median sternotomy changes are present. There are no pleural effusions. There is no pulmonary vascular congestion. There is no pneumothorax. Mediastinal calcified lymphadenopathy is present. The lungs are clear. No significant osseous abnormality is identified. IMPRESSION: No acute cardiopulmonary process. Electronically signed by: Ferny Goldman MD (10/04/2018 2:10 PM) [facility] DICTATED and SIGNED BY: FERNY GOLDMAN MD DATE: 10/04/18 1410 [facility] [address], [place] [id number] IMAGING REPORT Signed PATIENT: RHETT HERNANDEZ ACCOUNT: [id number] : 1960 LOCATION: ER AGE: 58 SEX: F EXAM STATUS: REG ER ORD. PHYSICIAN: CHELA ISLAS MD REASON: syncope and fall, taking Coumadin PROCEDURE: CT HEAD AND CERVICAL SPINE WO CT head and cervical spine without contrast History: Syncope, fall the last few days, on Coumadin Technique: Noncontrast CT imaging was performed of the head and cervical spine. Multiplanar reconstruction images are submitted. Exposure: One or more of the following individualized dose reduction techniques were utilized for this examination: 1. Automated exposure control 2. Adjustment of the mA and/or kV according to patient size 3. Use of iterative reconstruction technique. Head CT Comparison: October 02, 2018 Findings: No acute extra-axial or parenchymal hemorrhage is identified. There is no significant intra-axial mass effect, midline shift, or extra-axial fluid collection. The velázquez-white differentiation of the major vascular territories is preserved. Ventricular size is within normal limits. There is again mild supratentorial atrophy. There is a 1.2 cm left maxillary sinus mucous retention cyst. 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 Impression: 1. No acute intracranial abnormality is identified. Cervical spine CT Comparison: May 20, 2017 Findings: No acute cervical spine fracture is identified. Vertebral body stature and AP alignment are within normal limits. Atlanto-axial distance is within normal limits. There is appropriate alignment of lateral masses of C1 relative to C2. Occipital condylar-C1 relationship is maintained. There is mild degenerative disc disease and spondylosis C4-C5. There is multilevel cervical facet degenerative change. There is mild uncovertebral degenerative change C4-5, mild narrowing of the C4-5 neural foramina. There is mild dextroscoliosis. There is a small focus of nonspecific calcification of posterior right thyroid gland. Impression: 1. No acute cervical spine fracture is identified. Electronically signed by: Lucien Suárez MD (10/04/2018 2:14 PM) [id number] DICTATED and SIGNED BY: LUCIEN SUÁREZ MD DATE: 10/04/18 1403 Course & Med Decision Making Course & Med Decision Making Pertinent Labs and Imaging studies reviewed. (See chart for details) Evaluation of patient in ER showed 58-year-old female patient with multiple medical problems and frequent emergency room visits and hospitalization presented for the second time with episodes of syncope and fall. Patient had unremarkable physical exam and complaining of subjective left upper and lower extremity paresthesia. Patient had unremarkable labs and CT head and cervical spine except for INR of 2.7 because of taking Coumadin. Patient and her does feel comfortable to go home and follow up with her hand bunch maker as outpatient because her primary care physician saw her today and sent them to emergency room. Dr. Goins accepted admission at 1447. Michelleon Disclaimer Michelleon Disclaimer This electronic medical record was generated, in whole or in part, using a voice recognition dictation system. Departure Departure Impression: Primary Impression: Syncope and collapse Additional Impressions: Nausea and vomiting Headache Paresthesia Fall at home Disposition: ADMITTED INPATIENT Admitting Physician: Baltazar Goins (at 1448), Other (Dr Goins accepted admission at 1447) Condition: IMPROVED Referrals: RUBIO CASTELLANOS (PCP) Problem Qualifiers CHELA ISLAS MD Oct 04, 2018 14:26
[2018-10-04] MEDS ORDERED: HYDROcodone/APAP 5/325MG 1 TAB TABLET PO ONE (14:30)
--- NOTE | 2018-10-04 16:44 | PDOC1 ---
History and Physical Date of Admission Date of Admission DATE: 10/04/18 TIME: 16:42 Identification/Chief Complaint Chief Complaint Falls Source Source: Caregiver, Chart review, Patient History of Present Illness History of Present Illness Ms Sheppard is a 58 year old female w/ PMHx COPD, bipolar disorder, mechanical aortic valve who presents with complaining of syncope and falls at home. She notes she was sitting up in bed and felt dizzy, waited a few minutes, then stood up and states she lost consciousness. Patient's states she had a fall yesterday from a standing position without loss of consciousness and today had a syncopal episode that last about 20 minutes without seizure activity with a fall complaining of headache and rated her pain 8/10. Patient also complaining of 4 or 5 episodes of vomiting daily for the last 3 days and states she was not able to eat or drink for the last 3 days and complaining of generalized weakness. She also c/o numbness of left upper and lower extremity for the last 3 days, but notes this is a chronic problem. On further ROS she c/o abdominal pain and notes she has been taking 7.5mg hydrocodone for this but feels her pain and nausea are actually worse with this. Past Medical History Cardiovascular: CAD, HTN, Hyperlipidemia, Aortic stenosis, Other Pulmonary: Asthma, COPD CENTRAL NERVOUS SYSTEM: Other GI: GERD Heme/Onc: No pertinent hx Hepatobiliary: No pertinent hx Psych: Anxiety, Bipolar, Depression, Schizophrenia, Other Musculoskeletal: Osteoarthritis Rheumatologic: No pertinent hx Infectious disease: No pertinent hx Renal/: No pertinent hx Endocrine: No pertinent hx Past Surgical History Past Surgical History: Cholecystectomy, Hysterectomy, Other Family History Family History: Diabetes Social History ALCOHOL: none Drugs: None Current Problem List Problem List Problems Medical Problems: (1) Fall at home Status: Acute Current Medications Current Medications Current Medications Ondansetron HCl (Zofran) 4 mg 1X ONCE IV Last administered on 10/04/18at 13:37 ; Start 10/04/18 at 13:15; Stop 10/04/18 at 13:16; Status DC Acetaminophen/ Hydrocodone Bitart (Lortab 5/325) 1 tab 1X ONCE PO Last administered on 10/04/18at 15:00; Start 10/04/18 at 14:30; Stop 10/04/18 at 14:31 ; Status DC Active Scripts Active Tramadol Hcl 50 Mg Tablet 50 Mg PO Q6HRS PRN Synthroid (Levothyroxine Sodium) 25 Mcg Tablet 25 Mcg PO DAILY07 30 Days Atorvastatin Calcium 10 Mg Tablet 10 Mg PO QHS Reported Percocet 5-325 Mg Tablet (Oxycodone/Acetaminophen) 1 Each Tablet 1 Tab PO PRN Q6HRS PRN Baclofen 10 Mg Tablet 10 Mg PO PRN QID Divalproex Sodium 500 Mg Tablet.dr 1 Tab PO BID Colestipol Hcl 1 Gm Tablet 1 Gm PO TID Seroquel (Quetiapine Fumarate) 100 Mg Tablet 1 Tab PO QHS Isosorbide Mononitrate Er (Isosorbide Mononitrate) 30 Mg Tab.er.24h 1 Tab PO DAILY Topiramate 25 Mg Tablet 1 Tab PO BID Warfarin Sodium 5 Mg Tablet 1 Tab PO DAILY Zolpidem Tartrate 5 Mg Tablet 5 Mg PO HS PRN Latuda (Lurasidone Hcl) 40 Mg Tablet 20 Mg PO QHS Singulair Tablet (Montelukast Sodium) 10 Mg Tablet 1 Tab PO DAILY Zyprexa (Olanzapine) 15 Mg Tablet 1 Tab PO QHS Fluoxetine Hcl 20 Mg Capsule 1 Cap PO DAILY Lyrica (Pregabalin) 50 Mg Capsule 1 Cap PO BID Metoprolol Tartrate 25 Mg Tablet 1 Tab PO BID Lisinopril 20 Mg Tablet 1 Tab PO DAILY Omeprazole 40 Mg Capsule.dr 1 Cap PO DAILY Albuterol Sulfate Neb Soln (Albuterol Sulfate) 2.5 Mg/3 Ml Vial.neb 1 Vial NEB PRN Q4HRS Nitrostat (Nitroglycerin) 0.4 Mg Tab.subl 0.4 Mg SL PRN Q5MIN PRN Klor-Con M20 (Potassium Chloride) 20 Meq Tab.er.prt 1 Tab PO BID Benztropine Mesylate 1 Mg Tablet 1 Tab PO BID Fluticasone Propionate Nasal [place] (Fluticasone Propionate) 16 Gm [place].susp 2 Sprays NS BID for seasonal allergies Allergies Allergies: Coded Allergies: Sulfa (Sulfonamide Antibiotics) (Verified Allergy, Severe, rash, tongue swelling, 04/15/15) Iodinated Contrast- Oral and IV Dye (Verified Allergy, Intermediate, rash , 04/15/15) Penicillins (Verified Allergy, Intermediate, Hives, 04/15/15) aspirin (Verified Allergy, Intermediate, Hives, 04/15/15) codeine (Verified Allergy, Intermediate, Hives; SEE COMMENT, 06/08/15) PT REPORTS TAKING LORTAB WITHOUT COMPLICATIONS, PER ED MD diphenhydramine HCl (Verified Allergy, Intermediate, rash, 12/19/13) latex (Verified Allergy, Intermediate, Rash, 12/18/13) ROS General: YES: Fatigue, Malaise, Appetite; No: Chills, Night Sweats, Other PSYCHOLOGICAL ROS: YES: Anxiety, Behavioral Disorder, Concentration difficultie , Depression, Mood Swings, Obsessive thoughts; No: Decreased libido, Disorientation, Hallucinations, Hostility, Irritablity , Memory difficulties, Physical abuse, Sexual abuse, Sleep disturbances, Suicidal ideation, Other Eyes: No Blurry vision, No Decreased vision, No Double vision, No Dry eyes, No Excessive tearing, No Eye Pain, No Itchy Eyes, No Loss of vision, No Photophobia , No Scotomata, No Uses contacts, No Uses glasses, No Other HEENT: YES: Heacaches; No: Visual Changes, Hearing change, Nasal congestion, Nasal discharge, Oral lesions, Sinus pain, Sore Throat, Epistaxis, Sneezing, Snoring, Tinnitus, Vertigo, Vocal changes, Other ALLERGY AND IMMUNOLOGY: No: Hives, Insect Bite Sensitivity, Itchy/Watery Eyes, Nasal Congestion, Post Nasal Drip, Seasonal Allergies, Other Hematological and Lymphatic: No: Bleeding Problems, Blood Clots, Blood Transfusions, Brusing, Night Sweats, Pallor, Swollen Lymph Nodes, Other ENDOCRINE: No: Breast Changes, Galactorrhea, Hair Pattern Changes, Hot Flashes , Malaise/lethargy, Mood Swings, Palpitations, Polydipsia/polyuria, Skin Changes , Temperature Intolerance, Unexpected Weight Changes, Other Breast: No New/Changing Breast Lumps, No Nipple changes, No Nipple discharge, No Other Respiratory: No: Cough, Hemoptysis, Orthopnea, Pleuritic Pain, Shortness of breath, SOB with excertion, Sputum Changes, Stridor, Tachypnea, Wheezing, Other Cardiovascular: No Chest Pain, No Palpitations, No Orthopnea, No Paroxysmal Noc. Dyspnea, No Edema, No Lt Headedness, No Other Gastrointestinal: Yes Nausea, Yes Vomiting, Yes Abdominal Pain; No Diarrhea, No Constipation, No Melena, No Hematochezia, No Other Genitourinary: No Dysuria, No Frequency, No Incontinence, No Hematuria, No Retention, No Discharge, No Urgency, No Pain, No Flank Pain, No Other, No , No , No , No , No , No , No Musculoskeletal: No Gait Disturbance, No Joint Pain, No Joint Stiffness, No Joint Swelling, No Muscle Pain, No Muscular Weakness, No Pain In:, No Swelling In:, No Other Neurological: Yes Dizziness, Yes Gait Disturbance, Yes Memory Loss, Yes Numbness/Tingling; No Behavorial Changes, No Bowel/Bladder ControlChng, No Confusion, No Headaches, No Impaired Coord/balance, No Seizures, No Speech Problems, No Tremors, No Visual Changes, No Weakness, No Other Skin: No Dry Skin, No Eczema, No Hair Changes, No Lumps, No Mole Changes, No Mottling, No Nail Changes, No Pruritus, No Rash, No Skin Lesion Changes, No Other, No Acne Physical Exam General: Alert, Oriented X3, Cooperative, No acute distress HEENT: Atraumatic, PERRLA, EOMI, Mucous membr. moist/pink Lungs: Clear to auscultation, Normal air movement Heart: S1S2, RRR, no gallops, murmurs (4/6 mechanical murmur systolic) Abdomen: Normal bowel sounds, Soft, No hepatosplenomegaly, No masses, Other ( Epigastric tenderness) Extremities: No clubbing, No cyanosis, No edema, Normal pulses, No tenderness/ swelling Skin: No rashes, No breakdown, No significant lesion Neuro: Normal gait, Normal speech, Strength at 5/5 X4 ext, Normal tone, Sensation intact, Cranial nerves 3-12 NL, Reflexes 2+ Psych/Mental Status: Other (Flat affect) Vitals Vitals Vital Signs Date Time Temp Pulse Resp B/P (MAP) Pulse Ox O2 Delivery O2 Flow Rate FiO2 10/04/18 14:39 60 122/61 (81) 94 Room Air 10/04/18 13:40 18 10/04/18 13:14 98.3 98.3 Labs Labs Laboratory Tests Test 10/04/18 13:00 10/04/18 13:25 Urine Color Yellow Urine Clarity Clear Urine pH 7.0 Urine Specific [place] 1.020 Urine Protein Negative mg/dL (NEG-TRACE) Urine Glucose (UA) Negative mg/dL (NEG) Urine Ketones (Stick) Negative mg/dL (NEG) Urine Blood Negative (NEG) Urine Nitrite Negative (NEG) Urine Bilirubin Negative (NEG) Urine Urobilinogen Dipstick 1.0 mg/dL (0.2 mg/dL) Urine Leukocyte Esterase Negative (NEG) Urine RBC Occ /HPF (0-2) Urine WBC 1-4 /HPF (0-4) Urine Squamous Epithelial Cells Mod /LPF Urine Bacteria Moderate /HPF (0-FEW) Urine Mucus Slight /LPF Urine Opiates Screen Neg (NEG) Urine Methadone Screen Neg (NEG) Urine Barbiturates Neg (NEG) Urine Phencyclidine Screen Neg (NEG) Urine Amphetamine/Methamphetamine Neg (NEG) Urine Benzodiazepines Screen Neg (NEG) Urine Cocaine Screen Neg (NEG) Urine Cannabinoids Screen Neg (NEG) Urine Ethyl Alcohol Neg (NEG) White Blood Count 5.9 x10^3/uL (4.0-11.0) Red Blood Count 4.60 x10^6/uL (3.50-5.40) Hemoglobin 13.4 g/dL (12.0-15.5) Hematocrit 38.9 % (36.0-47.0) Mean Corpuscular Volume 85 fL (79-100) Mean Corpuscular Hemoglobin 29 pg (25-35) Mean Corpuscular Hemoglobin Concent 35 g/dL (31-37) Red Cell Distribution Width 13.8 % (11.5-14.5) Platelet Count 187 x10^3/uL (140-400) Neutrophils (%) (Auto) 66 % (31-73) Lymphocytes (%) (Auto) 27 % (24-48) Monocytes (%) (Auto) 6 % (0-9) Eosinophils (%) (Auto) 1 % (0-3) Basophils (%) (Auto) 1 % (0-3) Neutrophils # (Auto) 3.9 x10^3uL (1.8-7.7) Lymphocytes # (Auto) 1.6 x10^3/uL (1.0-4.8) Monocytes # (Auto) 0.3 x10^3/uL (0.0-1.1) Eosinophils # (Auto) 0.1 x10^3/uL (0.0-0.7) Basophils # (Auto) 0.0 x10^3/uL (0.0-0.2) Prothrombin Time 28.4 SEC (11.7-14.0) Prothromb Time International Ratio 2.7 (0.8-1.1) Sodium Level 139 mmol/L (136-145) Potassium Level 4.1 mmol/L (3.5-5.1) Chloride Level 108 mmol/L (98-107) Carbon Dioxide Level 27 mmol/L (21-32) Anion Gap 4 (6-14) Blood Urea Nitrogen 17 mg/dL (7-20) Creatinine 0.7 mg/dL (0.6-1.0) Estimated GFR (Cockcroft-Gault) 85.9 BUN/Creatinine Ratio 24 (6-20) Glucose Level 93 mg/dL (70-99) Lactic Acid Level 0.5 mmol/L (0.4-2.0) Calcium Level 9.0 mg/dL (8.5-10.1) Magnesium Level 1.8 mg/dL (1.8-2.4) Total Bilirubin 0.4 mg/dL (0.2-1.0) Aspartate Amino Transf (AST/SGOT) 17 U/L (15-37) Alanine Aminotransferase (ALT/SGPT) 27 U/L (14-59) Alkaline Phosphatase 92 U/L (46-116) Creatine Kinase 38 U/L (26-192) Troponin I Quantitative < 0.017 ng/mL (0.000-0.055) AE-Way-E-Type Natriuretic Peptide 508 pg/mL (0-124) Total Protein 6.3 g/dL (6.4-8.2) Albumin 3.4 g/dL (3.4-5.0) Albumin/Globulin Ratio 1.2 (1.0-1.7) Valproic Acid (Depakene) Level 6 mcg/mL (50-100) Valproic Acid Last Dose Date 10/03/18 Valproic Acid Last Dose Time 2100 Laboratory Tests Test 10/04/18 13:00 10/04/18 13:25 Urine Color Yellow Urine Clarity Clear Urine pH 7.0 Urine Specific [place] 1.020 Urine Protein Negative mg/dL (NEG-TRACE) Urine Glucose (UA) Negative mg/dL (NEG) Urine Ketones (Stick) Negative mg/dL (NEG) Urine Blood Negative (NEG) Urine Nitrite Negative (NEG) Urine Bilirubin Negative (NEG) Urine Urobilinogen Dipstick 1.0 mg/dL (0.2 mg/dL) Urine Leukocyte Esterase Negative (NEG) Urine RBC Occ /HPF (0-2) Urine WBC 1-4 /HPF (0-4) Urine Squamous Epithelial Cells Mod /LPF Urine Bacteria Moderate /HPF (0-FEW) Urine Mucus Slight /LPF Urine Opiates Screen Neg (NEG) Urine Methadone Screen Neg (NEG) Urine Barbiturates Neg (NEG) Urine Phencyclidine Screen Neg (NEG) Urine Amphetamine/Methamphetamine Neg (NEG) Urine Benzodiazepines Screen Neg (NEG) Urine Cocaine Screen Neg (NEG) Urine Cannabinoids Screen Neg (NEG) Urine Ethyl Alcohol Neg (NEG) White Blood Count 5.9 x10^3/uL (4.0-11.0) Red Blood Count 4.60 x10^6/uL (3.50-5.40) Hemoglobin 13.4 g/dL (12.0-15.5) Hematocrit 38.9 % (36.0-47.0) Mean Corpuscular Volume 85 fL (79-100) Mean Corpuscular Hemoglobin 29 pg (25-35) Mean Corpuscular Hemoglobin Concent 35 g/dL (31-37) Red Cell Distribution Width 13.8 % (11.5-14.5) Platelet Count 187 x10^3/uL (140-400) Neutrophils (%) (Auto) 66 % (31-73) Lymphocytes (%) (Auto) 27 % (24-48) Monocytes (%) (Auto) 6 % (0-9) Eosinophils (%) (Auto) 1 % (0-3) Basophils (%) (Auto) 1 % (0-3) Neutrophils # (Auto) 3.9 x10^3uL (1.8-7.7) Lymphocytes # (Auto) 1.6 x10^3/uL (1.0-4.8) Monocytes # (Auto) 0.3 x10^3/uL (0.0-1.1) Eosinophils # (Auto) 0.1 x10^3/uL (0.0-0.7) Basophils # (Auto) 0.0 x10^3/uL (0.0-0.2) Prothrombin Time 28.4 SEC (11.7-14.0) Prothromb Time International Ratio 2.7 (0.8-1.1) Sodium Level 139 mmol/L (136-145) Potassium Level 4.1 mmol/L (3.5-5.1) Chloride Level 108 mmol/L (98-107) Carbon Dioxide Level 27 mmol/L (21-32) Anion Gap 4 (6-14) Blood Urea Nitrogen 17 mg/dL (7-20) Creatinine 0.7 mg/dL (0.6-1.0) Estimated GFR (Cockcroft-Gault) 85.9 BUN/Creatinine Ratio 24 (6-20) Glucose Level 93 mg/dL (70-99) Lactic Acid Level 0.5 mmol/L (0.4-2.0) Calcium Level 9.0 mg/dL (8.5-10.1) Magnesium Level 1.8 mg/dL (1.8-2.4) Total Bilirubin 0.4 mg/dL (0.2-1.0) Aspartate Amino Transf (AST/SGOT) 17 U/L (15-37) Alanine Aminotransferase (ALT/SGPT) 27 U/L (14-59) Alkaline Phosphatase 92 U/L (46-116) Creatine Kinase 38 U/L (26-192) Troponin I Quantitative < 0.017 ng/mL (0.000-0.055) FA-Utr-K-Type Natriuretic Peptide 508 pg/mL (0-124) Total Protein 6.3 g/dL (6.4-8.2) Albumin 3.4 g/dL (3.4-5.0) Albumin/Globulin Ratio 1.2 (1.0-1.7) Valproic Acid (Depakene) Level 6 mcg/mL (50-100) Valproic Acid Last Dose Date 10/03/18 Valproic Acid Last Dose Time 2100 Images Images CXR - no acute abnormality CT Head - no acute abnormality CT C-spine - no acute abnormality VTE Prophylaxis Ordered VTE Prophylaxis Devices: No VTE Pharmacological Prophylaxi: Yes Assessment/Plan Assessment/Plan A/P: Epigastric abdominal pain - with nausea and vomiting. Has h/o gastroparesis on reglan. Could consider transition to bethanachol. Will consult GI Syncope - sounds to be vasovagal. She has a complicated medical history, however , and this merits further w/u. Seen by cardiology last visit in August for same. She has a large number of psych meds which may be playing a role Frequent falls - possibly related to above and hypotension, which appears chronic CAD s/p PCI/stents to RCA with cardiac catheterization in 2014. Lexiscan nuclear stress test in 10/2017 did not show any significant ischemia. SSS s/p permanent pacemaker implantation with recent remote check showing normal function with adequate battery life s/p mechanical aortic valve replacement: Recent 2-D echo showed normal function. INR therapeutic at 2.7. Continue warfarin. History of chronic obstructive pulmonary disease - cont treatments History of atrial fibrillation - on rate control, coumadin for valve, and s/p PPP Gastroesophageal reflux disease - cont ppi, reglan History of hypertension - now with hypotensioni Hyperlipidemia - cont statin Gastroparesis - as above Anxiety - cont home meds Depression - cont home meds Schizophrenia/Bipolar disorder - cont meds, check depakote level Osteoarthritis - seen by PMR physician last visit FEN - Cardiac diet PPX - coumadin FULL CODE Inpatient for intractable nausea and vomiting with syncope KATTY HERNANDEZ MD Oct 04, 2018 16:44
[2018-10-04] MEDS ORDERED: ZOLPIDEM 5 MG TABLET. PO PRN (18:00)
--- NOTE | 2018-10-04 18:13 | NUR ---
Pt had a home script for oxycodone 5-325. Verified that there were 12 tablets with LISA Loja and sent script down to pharmacy. Pt stated her will take medications home with him tomorrow. This RN explained that the patient can keep medications here until discharge if need to be.
[2018-10-04] MEDS: WARFARIN 5 MG TABLET. PO SCH (19:07)
[2018-10-04] MEDS: POTASSIUM CHLORIDE 20 MEQ TABLET.ER. PO SCH (19:07)
[2018-10-04 19:20] VITALS: BP 104/47
[2018-10-04] MEDS: METOPROLOL TART IMMED RELEASE 25 MG TABLET. PO SCH (21:00)
[2018-10-04] MEDS ORDERED: NON FORMULARY ITEM (Quetiapine Fumarate (Seroquel) 1 TAB) PO SCH (21:00)
[2018-10-04] MEDS ORDERED: LURASIDONE 40 MG TABLET. PO SCH (21:00)
[2018-10-04] MEDS: FLUTICASONE 50MCG/NASAL SPRAY 16GM BOTTLE. NS SCH (21:16)
[2018-10-04] MEDS: PREGABALIN 50 MG CAPSULE PO SCH (21:16)
[2018-10-04] MEDS: ATORVASTATIN CALCIUM 10 MG TABLET. PO SCH (21:16)
[2018-10-04] MEDS: OLANZapine 5 MG TABLET PO SCH (21:17)
[2018-10-04] MEDS: BENZTROPINE MESYLATE 1 MG TABLET. PO SCH (21:17)
[2018-10-04] MEDS: LURASIDONE 40 MG TABLET. PO SCH (21:17)
[2018-10-04] MEDS: QUEtiapine 100 MG TABLET. PO SCH (21:17)
[2018-10-04] MEDS: TOPIRAMATE 25 MG TABLET. PO SCH (21:17)
[2018-10-04] MEDS: COLESTIPOL HCL 1 GM TABLET PO SCH (21:17)
[2018-10-04] MEDS: traMADol 50 MG TABLET PO PRN (21:17)
[2018-10-04] MEDS: METOCLOPRAMIDE ORAL SOLN 10 MG/10 ML SOLUTION. PO SCH (21:17)
[2018-10-04] MEDS: MONTELUKAST SODIUM 10 MG TABLET. PO SCH (21:17)
[2018-10-04] MEDS: DIVALPROEX DELAYED RELEASE 500 MG TABLET.DR. PO SCH (21:17)
[2018-10-04 23:25] VITALS: BP 91/50
[2018-10-05 03:25] VITALS: BP 92/50
[2018-10-05 04:13] LABS: BASO % 1 % (0-3); EOS # 0.1 x10^3/uL (0.0-0.7); EOS % 2 % (0-3); HEMATOCRIT 38.3 % (36.0-47.0); HEMOGLOBIN 13.3 g/dL (12.0-15.5); LYMPH # 2.3 x10^3/uL (1.0-4.8); LYMPH % 40 % (24-48); MEAN CORPUSCULAR HEMOGLOBIN 30 pg (25-35); MEAN CORPUSCULAR HGB CONC 35 g/dL (31-37); MEAN CORPUSCULAR VOLUME 85 fL (79-100); MONO # 0.4 x10^3/uL (0.0-1.1); MONO % 7 % (0-9); NEUT % 51 % (31-73); PLATELET COUNT 162 x10^3/uL (140-400); RED BLOOD COUNT 4.51 x10^6/uL (3.50-5.40); RED CELL DISTRIBUTION WIDTH 13.9 % (11.5-14.5); WHITE BLOOD COUNT 5.9 x10^3/uL (4.0-11.0)
[2018-10-05 04:28] LABS: CALCIUM 8.8 mg/dL (8.5-10.1); CREATININE 0.8 mg/dL (0.6-1.0); GFR 73.7; POTASSIUM 3.7 mmol/L (3.5-5.1)
[2018-10-05 04:30] LABS: PROTHROMBIN TIME PATIENT 29.6 SEC (11.7-14.0)
[2018-10-05 07:17] VITALS: BP 105/59
[2018-10-05] MEDS: LEVOTHYROXINE 25 MCG TABLET. PO SCH (07:22)
[2018-10-05] MEDS: PANTOPRAZOLE 40 MG TABLET.DR. PO SCH (09:12)
[2018-10-05] MEDS: METOCLOPRAMIDE ORAL SOLN 10 MG/10 ML SOLUTION. PO SCH ×4 (09:12→20:58)
[2018-10-05] MEDS: PREGABALIN 50 MG CAPSULE PO SCH ×2 (09:13→21:00)
[2018-10-05] MEDS: POTASSIUM CHLORIDE 20 MEQ TABLET.ER. PO SCH ×2 (09:13→17:22)
[2018-10-05] MEDS: DIVALPROEX DELAYED RELEASE 500 MG TABLET.DR. PO SCH ×2 (09:13→20:59)
[2018-10-05] MEDS: BENZTROPINE MESYLATE 1 MG TABLET. PO SCH ×2 (09:13→21:01)
[2018-10-05] MEDS: TOPIRAMATE 25 MG TABLET. PO SCH ×2 (09:14→21:01)
[2018-10-05] MEDS: FLUoxetine HCL 20 MG CAPSULE PO SCH (09:14)
[2018-10-05] MEDS: LISINOPRIL 20 MG TABLET PO SCH (09:14)
[2018-10-05] MEDS: ISOSORBIDE MONONITRATE ER 30 MG TAB.ER.24H PO SCH (09:14)
[2018-10-05] MEDS: METOPROLOL TART IMMED RELEASE 25 MG TABLET. PO SCH ×2 (09:15→21:00)
[2018-10-05] MEDS: FLUTICASONE 50MCG/NASAL SPRAY 16GM BOTTLE. NS SCH ×2 (09:17→20:59)
--- NOTE | 2018-10-05 09:21 | PDOC2 ---
SOTERO DUMONT DINING ROOM HOST/HOSTESS 10/05/18 0921: CARDIAC CONSULT DATE OF CONSULT Date of Consult DATE: 10/05/18 TIME: 09:08 REASON FOR CONSULT Reason for Consult: Sycope REFERRING PHYSICIAN Referring Physician: Dr. Goins SOURCE Source: Chart review, Patient HISTORY OF PRESENT ILLNESS HISTORY OF PRESENT ILLNESS This is a 58 yo female who presented with complaints of syncope and falls. Patient reports she was getting out of bed and passed out. Fell onto the floor. Cannot recall if she hit her head or not. No precipitating dizziness, lightheadedness, chest pain, diaphoresis, or shortness of breath. Has had multiple recent falls. Per chart review, may have witnessed some type of seizure-like activity with these falls. PAST MEDICAL HISTORY Past Medical History Cardiovascular: CAD, HTN, Hyperlipidemia Pulmonary: Asthma, COPD GI: GERD, GI bleed, colitis, gastroparesis Heme/Onc: No pertinent hx Psych: Anxiety, Bipolar, Depression, Schizophrenia, Other (narcolepsy) Musculoskeletal: Osteoarthritis, lower back injury Infectious disease: No pertinent hx ENT: No pertinent hx Renal/: No pertinent hx Endocrine: No pertinent hx Dermatology: No pertinent hx PAST SURGICAL HISTORY Past Surgical History Cholecystectomy, Hysterectomy, Other (mechanical aortic valve), PPM, Multiple PCIs with stents FAMILY HISTORY Family History: Diabetes SOCIAL HISTORY Social History Smoke: No ALCOHOL: none Drugs: None CURRENT MEDICATIONS CURRENT MEDICATIONS Current Medications Medications (Trade) Dose Ordered Sig/Galilea Route PRN Reason Start Time Stop Time Status Last Admin Dose Admin Ondansetron HCl (Zofran) 4 mg 1X ONCE IV 10/04/18 13:15 10/04/18 13:16 DC 10/04/18 13:37 Acetaminophen/ Hydrocodone Bitart (Lortab 5/325) 1 tab 1X ONCE PO 10/04/18 14:30 10/04/18 14:31 DC 10/04/18 15:00 Atorvastatin Calcium (Lipitor) 10 mg QHS PO 10/04/18 21:00 10/04/18 21:16 Colestipol HCl (Colestid) 1 gm TID@1000,1500,2200 PO 10/04/18 22:00 10/04/18 21:17 Fluticasone Propionate (Flonase) 2 spray BID NS 10/04/18 21:00 10/04/18 21:16 Potassium Chloride (Klor-Con) 20 meq BIDWMEALS PO 10/04/18 18:30 10/04/18 19:07 Pregabalin (Lyrica) 50 mg BID PO 10/04/18 21:00 10/04/18 21:16 Tramadol HCl (Ultram) 50 mg PRN Q6HRS PRN PO PAIN 10/04/18 18:00 10/04/18 21:17 Benztropine Mesylate (Cogentin) 1 mg BID PO 10/04/18 21:00 10/04/18 21:17 Divalproex Sodium (Depakote) 500 mg BID PO 10/04/18 21:00 10/04/18 21:17 Levothyroxine Sodium (Synthroid) 25 mcg DAILY06 PO 10/05/18 06:00 10/05/18 07:22 Montelukast Sodium (Singulair) 10 mg QHS PO 10/04/18 21:00 10/04/18 21:17 Olanzapine (ZyPREXA) 15 mg QHS PO 10/04/18 21:00 10/04/18 21:17 Topiramate (Topamax) 25 mg BID PO 10/04/18 21:00 10/04/18 21:17 Warfarin Sodium (Coumadin) 5 mg DAILY16 PO 10/04/18 18:30 10/04/18 19:07 Metoclopramide HCl (Reglan Oral Solution) 5 mg TIDACHC PO 10/04/18 21:00 10/04/18 21:17 Quetiapine Fumarate (SEROquel) 100 mg QHS PO 10/04/18 21:00 10/04/18 21:17 Lurasidone HCl (Latuda) 20 mg QHS PO 10/04/18 21:00 10/04/18 21:17 ALLERGIES ALLERGIES: Coded Allergies: Sulfa (Sulfonamide Antibiotics) (Verified Allergy, Severe, rash, tongue swelling, 04/15/15) Iodinated Contrast- Oral and IV Dye (Verified Allergy, Intermediate, rash , 04/15/15) Penicillins (Verified Allergy, Intermediate, Hives, 04/15/15) aspirin (Verified Allergy, Intermediate, Hives, 04/15/15) codeine (Verified Allergy, Intermediate, Hives; SEE COMMENT, 06/08/15) PT REPORTS TAKING LORTAB WITHOUT COMPLICATIONS, PER ED MD diphenhydramine HCl (Verified Allergy, Intermediate, rash, 12/19/13) latex (Verified Allergy, Intermediate, Rash, 12/18/13) ROS Review of System 14 point ROS conducted with pertinent positives noted above in HPI. PHYSICAL EXAM PHYSICAL EXAM General: Alert, Oriented X3, Cooperative, No acute distress HEENT: Atraumatic, Mucous membr. moist/pink Lungs: Clear to auscultation, Normal air movement Heart: Regular rate (SR), Normal S1, Normal S2, Other (audible valvular click to GREGORIO border) Abdomen: Soft, No tenderness Extremities: No cyanosis, No edema Skin: No breakdown, No significant lesion Neuro: Normal speech, Sensation intact Psych/Mental Status: Mental status NL, Mood NL MUSCULOSKELETAL: Osteoarthritic changes both hands VITALS VITALS Vital Signs Date Time Temp Pulse Resp B/P (MAP) Pulse Ox O2 Delivery O2 Flow Rate FiO2 10/05/18 07:17 98.1 61 16 105/59 (74) 93 Room Air 98.1 LABS Lab: Laboratory Tests Test 10/04/18 13:00 10/04/18 13:25 10/05/18 03:35 Urine Color Yellow Urine Clarity Clear Urine pH 7.0 Urine Specific [place] 1.020 Urine Protein Negative mg/dL (NEG-TRACE) Urine Glucose (UA) Negative mg/dL (NEG) Urine Ketones (Stick) Negative mg/dL (NEG) Urine Blood Negative (NEG) Urine Nitrite Negative (NEG) Urine Bilirubin Negative (NEG) Urine Urobilinogen Dipstick 1.0 mg/dL (0.2 mg/dL) Urine Leukocyte Esterase Negative (NEG) Urine RBC Occ /HPF (0-2) Urine WBC 1-4 /HPF (0-4) Urine Squamous Epithelial Cells Mod /LPF Urine Bacteria Moderate /HPF (0-FEW) Urine Mucus Slight /LPF Urine Opiates Screen Neg (NEG) Urine Methadone Screen Neg (NEG) Urine Barbiturates Neg (NEG) Urine Phencyclidine Screen Neg (NEG) Urine Amphetamine/Methamphetamine Neg (NEG) Urine Benzodiazepines Screen Neg (NEG) Urine Cocaine Screen Neg (NEG) Urine Cannabinoids Screen Neg (NEG) Urine Ethyl Alcohol Neg (NEG) White Blood Count 5.9 x10^3/uL (4.0-11.0) 5.9 x10^3/uL (4.0-11.0) Red Blood Count 4.60 x10^6/uL (3.50-5.40) 4.51 x10^6/uL (3.50-5.40) Hemoglobin 13.4 g/dL (12.0-15.5) 13.3 g/dL (12.0-15.5) Hematocrit 38.9 % (36.0-47.0) 38.3 % (36.0-47.0) Mean Corpuscular Volume 85 fL (79-100) 85 fL (79-100) Mean Corpuscular Hemoglobin 29 pg (25-35) 30 pg (25-35) Mean Corpuscular Hemoglobin Concent 35 g/dL (31-37) 35 g/dL (31-37) Red Cell Distribution Width 13.8 % (11.5-14.5) 13.9 % (11.5-14.5) Platelet Count 187 x10^3/uL (140-400) 162 x10^3/uL (140-400) Neutrophils (%) (Auto) 66 % (31-73) 51 % (31-73) Lymphocytes (%) (Auto) 27 % (24-48) 40 % (24-48) Monocytes (%) (Auto) 6 % (0-9) 7 % (0-9) Eosinophils (%) (Auto) 1 % (0-3) 2 % (0-3) Basophils (%) (Auto) 1 % (0-3) 1 % (0-3) Neutrophils # (Auto) 3.9 x10^3uL (1.8-7.7) 3.0 x10^3uL (1.8-7.7) Lymphocytes # (Auto) 1.6 x10^3/uL (1.0-4.8) 2.3 x10^3/uL (1.0-4.8) Monocytes # (Auto) 0.3 x10^3/uL (0.0-1.1) 0.4 x10^3/uL (0.0-1.1) Eosinophils # (Auto) 0.1 x10^3/uL (0.0-0.7) 0.1 x10^3/uL (0.0-0.7) Basophils # (Auto) 0.0 x10^3/uL (0.0-0.2) 0.0 x10^3/uL (0.0-0.2) Prothrombin Time 28.4 SEC (11.7-14.0) 29.6 SEC (11.7-14.0) Prothromb Time International Ratio 2.7 (0.8-1.1) 2.8 (0.8-1.1) Sodium Level 139 mmol/L (136-145) 141 mmol/L (136-145) Potassium Level 4.1 mmol/L (3.5-5.1) 3.7 mmol/L (3.5-5.1) Chloride Level 108 mmol/L (98-107) 108 mmol/L (98-107) Carbon Dioxide Level 27 mmol/L (21-32) 28 mmol/L (21-32) Anion Gap 4 (6-14) 5 (6-14) Blood Urea Nitrogen 17 mg/dL (7-20) 16 mg/dL (7-20) Creatinine 0.7 mg/dL (0.6-1.0) 0.8 mg/dL (0.6-1.0) Estimated GFR (Cockcroft-Gault) 85.9 73.7 BUN/Creatinine Ratio 24 (6-20) Glucose Level 93 mg/dL (70-99) 98 mg/dL (70-99) Lactic Acid Level 0.5 mmol/L (0.4-2.0) Calcium Level 9.0 mg/dL (8.5-10.1) 8.8 mg/dL (8.5-10.1) Magnesium Level 1.8 mg/dL (1.8-2.4) Total Bilirubin 0.4 mg/dL (0.2-1.0) Aspartate Amino Transf (AST/SGOT) 17 U/L (15-37) Alanine Aminotransferase (ALT/SGPT) 27 U/L (14-59) Alkaline Phosphatase 92 U/L (46-116) Creatine Kinase 38 U/L (26-192) Troponin I Quantitative < 0.017 ng/mL (0.000-0.055) NW-Pis-I-Type Natriuretic Peptide 508 pg/mL (0-124) Total Protein 6.3 g/dL (6.4-8.2) Albumin 3.4 g/dL (3.4-5.0) Albumin/Globulin Ratio 1.2 (1.0-1.7) Valproic Acid (Depakene) Level 6 mcg/mL (50-100) Valproic Acid Last Dose Date 10/03/18 Valproic Acid Last Dose Time 2100 ECHOCARDIOGRAM ECHOCARDIOGRAM <Conclusion> Technically difficult study. The left ventricle is normal size. The left ventricular systolic function is normal and the ejection fraction is within normal range. The Ejection Fraction is estimated at 50%. There is borderline concentric left ventricular hypertrophy. There is a mechanical aortic valve prosthesis. The prosthetic aortic valve appears normal. Calculated aortic valve area is 1.4 cm2 with maximum pressure gradient of 38 mmHg and mean pressure gradient of 22 mmHg. Doppler and Color-flow revealed trace to mild mitral regurgitation. Doppler and Color Flow revealed trace to mild tricuspid regurgitation. DATE: 09/01/18 1801 STRESS TEST STRESS TEST Conclusion 1. No EKG evidence of stressed induced ischemia. 2. Nuclear imaging shows no reversible ischemia or infarct. 3. Normal left ventricular systolic function with an ejection fraction of greater than 70%. 4. Low risk Lexiscan nuclear stress test. DATE: 10/26/17 1245 HEART CATH HEART CATH FINDINGS 1. The left main coronary artery arose from the left sinus of Valsalva, gave rise to the left anterior descending and left circumflex arteries and did not show any significant stenosis. 2. The left anterior descending artery showed 30% stenosis in the midsegment. 3. The left circumflex artery did not show any significant stenosis. 4. The right coronary artery was a large and dominant vessel arising from the right sinus of Valsalva that did not show any significant stenosis. The previously placed stent is patent. Conclusion No significant coronary artery disease. Recommendations Medical management DATE: 07/16/15 0919 ASSESSMENT/PLAN ASSESSMENT/PLAN 1. Syncope, frequent falls. Doubt cardiac etiology 2. CAD: with multiple stents to RCA in 2012. Last [facility] 2014 with nonobstructive disease. MPI 10/2017 did not show any significant ischemia. No rhythm ectopies. 3. PPM in situ: hx of SSS. ([employer]) 5. AVR: mechanical valve. Recent 2-D echo showed normal function. 6. Chronic coumadin therapy: INR 2.8 7. HTN: controlled 8. HLP: statin 9. Schizophrenia/bipolar disorder 10. H/o seizures; previously on Depakote but ran out. ? seizure activity with syncopal episode Recommendations Interrogate device Check orthos. Continue with secondary prevention measures Further workup as per neurology. SUGEY CANNON MD 10/05/18 6157: CARDIAC CONSULT ASSESSMENT/PLAN ASSESSMENT/PLAN Patient seen and examined. Agree with above nurse practitioner note. No obvious cardiac pathology noted for her syncopal episodes. Supportive care. Please call with questions. SOTERO DUMONT APRN Oct 05, 2018 09:21 SUGEY CANNON MD Oct 05, 2018 18:27
--- NOTE | 2018-10-05 09:26 | PDOC2 ---
GI CONSULT Reason For Consult: Gastroparesis HPI: HPI: 57 y/o female who is currently eating potatoes, eggs, and toast. We have seen her many times in the past. Admitted through ER this time w/ falls/possible syncope. GI-reyes, c/o "all over" abd pain and "tons" of vomiting (bile, food) x 4 days associated w/ weight loss of 10 pounds. No precipitating events. Denies diarrhea or constipation. H/o GERD on omeprazole QD. H/o gastroparesis (GES w/ 22% retention at 4 hours in 2018) - says she takes Reglan TID (on suspension here), not sure about timing related to meals. Has told me in the past she takes Pepto-Bismol frequently. Numerous EGDs and colonoscopies in the past - both normal in 04/2018 except diverticulosis. H/o ischemic colitis. S/p cholecystectomy. On Warfarin. Also on Colestid here. Per RN, no vomiting. PMH: PMH: CAD w/ stents, HTN, HLD, asthma, COPD, GERD, gastroparesis, ?ischemic colitis, diverticulosis, anxiety, depression, bipolar, schizophrenia, narcolepsy, OA, cholecystectomy, hysterectomy, mechanical aortic valve, pacemaker FH: Family History: CAD Social History: Smoke: No ALCOHOL: none Drugs: None ROS: GEN: Denies fevers, chills, sweats HEENT: Denies blurred vision, sore throat CV: Denies chest pain RESP: Denies shortness of air, cough GI: Per HPI : Denies hematuria, dysuria ENDO: +weight loss NEURO: +syncope MSK: Denies weakness, joint pain/swelling SKIN: Denies jaundice, pruritus Vitals: Vitals: Vital Signs Date Time Temp Pulse Resp B/P (MAP) Pulse Ox O2 Delivery O2 Flow Rate FiO2 10/05/18 09:15 61 105/59 10/05/18 07:17 98.1 16 93 Room Air 98.1 Labs: Labs: Laboratory Tests Test 10/04/18 13:00 10/04/18 13:25 10/05/18 03:35 Urine Color Yellow Urine Clarity Clear Urine pH 7.0 Urine Specific [facility] 1.020 Urine Protein Negative mg/dL (NEG-TRACE) Urine Glucose (UA) Negative mg/dL (NEG) Urine Ketones (Stick) Negative mg/dL (NEG) Urine Blood Negative (NEG) Urine Nitrite Negative (NEG) Urine Bilirubin Negative (NEG) Urine Urobilinogen Dipstick 1.0 mg/dL (0.2 mg/dL) Urine Leukocyte Esterase Negative (NEG) Urine RBC Occ /HPF (0-2) Urine WBC 1-4 /HPF (0-4) Urine Squamous Epithelial Cells Mod /LPF Urine Bacteria Moderate /HPF (0-FEW) Urine Mucus Slight /LPF Urine Opiates Screen Neg (NEG) Urine Methadone Screen Neg (NEG) Urine Barbiturates Neg (NEG) Urine Phencyclidine Screen Neg (NEG) Urine Amphetamine/Methamphetamine Neg (NEG) Urine Benzodiazepines Screen Neg (NEG) Urine Cocaine Screen Neg (NEG) Urine Cannabinoids Screen Neg (NEG) Urine Ethyl Alcohol Neg (NEG) White Blood Count 5.9 x10^3/uL (4.0-11.0) 5.9 x10^3/uL (4.0-11.0) Red Blood Count 4.60 x10^6/uL (3.50-5.40) 4.51 x10^6/uL (3.50-5.40) Hemoglobin 13.4 g/dL (12.0-15.5) 13.3 g/dL (12.0-15.5) Hematocrit 38.9 % (36.0-47.0) 38.3 % (36.0-47.0) Mean Corpuscular Volume 85 fL (79-100) 85 fL (79-100) Mean Corpuscular Hemoglobin 29 pg (25-35) 30 pg (25-35) Mean Corpuscular Hemoglobin Concent 35 g/dL (31-37) 35 g/dL (31-37) Red Cell Distribution Width 13.8 % (11.5-14.5) 13.9 % (11.5-14.5) Platelet Count 187 x10^3/uL (140-400) 162 x10^3/uL (140-400) Neutrophils (%) (Auto) 66 % (31-73) 51 % (31-73) Lymphocytes (%) (Auto) 27 % (24-48) 40 % (24-48) Monocytes (%) (Auto) 6 % (0-9) 7 % (0-9) Eosinophils (%) (Auto) 1 % (0-3) 2 % (0-3) Basophils (%) (Auto) 1 % (0-3) 1 % (0-3) Neutrophils # (Auto) 3.9 x10^3uL (1.8-7.7) 3.0 x10^3uL (1.8-7.7) Lymphocytes # (Auto) 1.6 x10^3/uL (1.0-4.8) 2.3 x10^3/uL (1.0-4.8) Monocytes # (Auto) 0.3 x10^3/uL (0.0-1.1) 0.4 x10^3/uL (0.0-1.1) Eosinophils # (Auto) 0.1 x10^3/uL (0.0-0.7) 0.1 x10^3/uL (0.0-0.7) Basophils # (Auto) 0.0 x10^3/uL (0.0-0.2) 0.0 x10^3/uL (0.0-0.2) Prothrombin Time 28.4 SEC (11.7-14.0) 29.6 SEC (11.7-14.0) Prothromb Time International Ratio 2.7 (0.8-1.1) 2.8 (0.8-1.1) Sodium Level 139 mmol/L (136-145) 141 mmol/L (136-145) Potassium Level 4.1 mmol/L (3.5-5.1) 3.7 mmol/L (3.5-5.1) Chloride Level 108 mmol/L (98-107) 108 mmol/L (98-107) Carbon Dioxide Level 27 mmol/L (21-32) 28 mmol/L (21-32) Anion Gap 4 (6-14) 5 (6-14) Blood Urea Nitrogen 17 mg/dL (7-20) 16 mg/dL (7-20) Creatinine 0.7 mg/dL (0.6-1.0) 0.8 mg/dL (0.6-1.0) Estimated GFR (Cockcroft-Gault) 85.9 73.7 BUN/Creatinine Ratio 24 (6-20) Glucose Level 93 mg/dL (70-99) 98 mg/dL (70-99) Lactic Acid Level 0.5 mmol/L (0.4-2.0) Calcium Level 9.0 mg/dL (8.5-10.1) 8.8 mg/dL (8.5-10.1) Magnesium Level 1.8 mg/dL (1.8-2.4) Total Bilirubin 0.4 mg/dL (0.2-1.0) Aspartate Amino Transf (AST/SGOT) 17 U/L (15-37) Alanine Aminotransferase (ALT/SGPT) 27 U/L (14-59) Alkaline Phosphatase 92 U/L (46-116) Creatine Kinase 38 U/L (26-192) Troponin I Quantitative < 0.017 ng/mL (0.000-0.055) AW-Rod-M-Type Natriuretic Peptide 508 pg/mL (0-124) Total Protein 6.3 g/dL (6.4-8.2) Albumin 3.4 g/dL (3.4-5.0) Albumin/Globulin Ratio 1.2 (1.0-1.7) Valproic Acid (Depakene) Level 6 mcg/mL (50-100) Valproic Acid Last Dose Date 10/03/18 Valproic Acid Last Dose Time 2100 Allergies: Coded Allergies: Sulfa (Sulfonamide Antibiotics) (Verified Allergy, Severe, rash, tongue swelling, 04/15/15) Iodinated Contrast- Oral and IV Dye (Verified Allergy, Intermediate, rash , 04/15/15) Penicillins (Verified Allergy, Intermediate, Hives, 04/15/15) aspirin (Verified Allergy, Intermediate, Hives, 04/15/15) codeine (Verified Allergy, Intermediate, Hives; SEE COMMENT, 06/08/15) PT REPORTS TAKING LORTAB WITHOUT COMPLICATIONS, PER ED diphenhydramine HCl (Verified Allergy, Intermediate, rash, 12/19/13) latex (Verified Allergy, Intermediate, Rash, 12/18/13) Medications: Current Medications Medications (Trade) Dose Ordered Sig/Galilea Route PRN Reason Start Time Stop Time Status Last Admin Dose Admin Ondansetron HCl (Zofran) 4 mg 1X ONCE IV 10/04/18 13:15 10/04/18 13:16 DC 10/04/18 13:37 Acetaminophen/ Hydrocodone Bitart (Lortab 5/325) 1 tab 1X ONCE PO 1/22/19 14:30 10/04/18 14:31 DC 10/04/18 15:00 Atorvastatin Calcium (Lipitor) 10 mg QHS PO 10/04/18 21:00 10/04/18 21:16 Colestipol HCl (Colestid) 1 gm TID@1000,1500,2200 PO 10/04/18 22:00 10/04/18 21:17 Fluoxetine HCl (PROzac) 20 mg DAILY PO 10/05/18 09:00 10/05/18 09:14 Fluticasone Propionate (Flonase) 2 spray BID NS 10/04/18 21:00 10/04/18 21:16 Isosorbide Mononitrate (Imdur) 30 mg DAILY PO 10/05/18 09:00 10/05/18 09:14 Lisinopril (Prinivil) 20 mg DAILY PO 10/05/18 09:00 10/05/18 09:14 Metoprolol Tartrate (Lopressor) 25 mg BID PO 10/04/18 21:00 10/05/18 09:15 Potassium Chloride (Klor-Con) 20 meq BIDWMEALS PO 10/04/18 18:30 10/05/18 09:13 Pregabalin (Lyrica) 50 mg BID PO 10/04/18 21:00 10/05/18 09:13 Tramadol HCl (Ultram) 50 mg PRN Q6HRS PRN PO PAIN 10/04/18 18:00 10/04/18 21:17 Benztropine Mesylate (Cogentin) 1 mg BID PO 10/04/18 21:00 10/05/18 09:13 Divalproex Sodium (Depakote) 500 mg BID PO 10/04/18 21:00 10/05/18 09:13 Levothyroxine Sodium (Synthroid) 25 mcg DAILY06 PO 10/05/18 06:00 10/05/18 07:22 Montelukast Sodium (Singulair) 10 mg QHS PO 10/04/18 21:00 10/04/18 21:17 Olanzapine (ZyPREXA) 15 mg QHS PO 10/04/18 21:00 10/04/18 21:17 Pantoprazole Sodium (Protonix) 40 mg DAILYAC PO 10/05/18 07:30 10/05/18 09:12 Topiramate (Topamax) 25 mg BID PO 10/04/18 21:00 10/05/18 09:14 Warfarin Sodium (Coumadin) 5 mg DAILY16 PO 10/04/18 18:30 10/04/18 19:07 Metoclopramide HCl (Reglan Oral Solution) 5 mg TIDACHC PO 10/04/18 21:00 10/05/18 09:12 Quetiapine Fumarate (SEROquel) 100 mg QHS PO 10/04/18 21:00 10/04/18 21:17 Lurasidone HCl (Latuda) 20 mg QHS PO 10/04/18 21:00 10/04/18 21:17 Imaging: Imaging: Head and C-spine CT Impression: 1. No acute intracranial abnormality is identified. Impression: 1. No acute cervical spine fracture is identified. CXR IMPRESSION: No acute cardiopulmonary process. PE: GEN: NAD, eating HEENT: Atraumatic, PERRL LUNGS: CTAB HEART: RRR +murm +pacemaker ABD: left-sided pain per usual, also some epigastric, soft, BS+ EXTREMITY: No edema SKIN: No rashes, no jaundice NEURO/PSYCH: A & O 3, flat A/P: A/P: ?syncope, falls Chronic abd pain, n/v H/o GERD and gastroparesis CRC screen - UTD Diverticulosis S/p cholecystectomy Anti-coagulated w/ Warfarin -- ?improved - currently eating - observe per GI, continue Reglan and PPI. Cardiology and neurology following. ANANT OLIVAREZ Oct 05, 2018 09:26
[2018-10-05] MEDS: COLESTIPOL HCL 1 GM TABLET PO SCH ×3 (10:00→21:01)
--- NOTE | 2018-10-05 11:03 | PDOC2 ---
NEUROLOGY CONSULT Date of Admission Date of Admission DATE: 10/05/18 TIME: 10:52 Reason for Consult Reason for Consult: Syncope Referring Physician Referring Physician: Dr. Goins Source Source: Chart review, Patient History of Present Illness History of Present Illness The patient is a 58-year-old right-handed female who says that she has fainted 3 times in the past 3 days. At first she says she just had some lightheadedness and was out for a few minutes, but then she changes the story and says that she actually had convulsive activity witnessed by her and she was out, at least on the episode 3 days ago, for up to an hour. Then she adds that she has a history of seizures since childhood. She could not remember the name of her anticonvulsant or whether she was on one. I then left the room and looked at her chart and noted that she is on Depakote. The level was 6. I asked the patient about this and she said, "oh yeah, I ran out of it a few days ago." I have seen the patient the past for conversion reaction and metabolic encephalopathy. She also had a stroke in 1998. I see that she was in the emergency department on October 02 for syncope in a headache and there was no mention made of any seizure activity. Past Medical History Cardiovascular: AFIB, CAD, CHF, HTN, [place], Hyperlipidemia, Other (aortic valve repair) Pulmonary: Asthma, COPD CENTRAL NERVOUS SYSTEM: CVA, Seizure, Other (History of conversion disorder) GI: GERD, Peptic Ulcer disease, Other ( chronic ischemic colitis, pancreatitis , colonic polyps) Heme/Onc: Cancer (breast) Psych: Anxiety, Bipolar, Depression Musculoskeletal: Osteoarthritis Past Surgical History Past Surgical History: Pacemaker, CABG, Hernia Repair (ventral), Mastectomy, Hysterectomy, Other ( mechanical aortic valve replacement) Family History Family History: Other ( negative for seizures) Social History Social History , no alcohol or tobacco Current Medications Current Medications Current Medications Ondansetron HCl (Zofran) 4 mg 1X ONCE IV Last administered on 10/04/18at 13:37 ; Start 10/04/18 at 13:15; Stop 10/04/18 at 13:16; Status DC Acetaminophen/ Hydrocodone Bitart (Lortab 5/325) 1 tab 1X ONCE PO Last administered on 10/04/18at 15:00; Start 10/04/18 at 14:30; Stop 10/04/18 at 14:31 ; Status DC Atorvastatin Calcium (Lipitor) 10 mg QHS PO Last administered on 10/04/18 21: 16; Start 10/04/18 at 21:00 Colestipol HCl (Colestid) 1 gm TID@1000,1500,2200 PO Last administered on 21:17; Start 10/04/18 at 22:00 Fluoxetine HCl (PROzac) 20 mg DAILY PO Last administered on 10/05/18 09:14; Start 10/05/18 at 09:00 Fluticasone Propionate (Flonase) 2 spray BID NS Last administered on 10/05/18 09:17; Start 10/04/18 at 21:00 Isosorbide Mononitrate (Imdur) 30 mg DAILY PO Last administered on 10/05/18 09 :14; Start 10/05/18 at 09:00 Lisinopril (Prinivil) 20 mg DAILY PO Last administered on 10/05/18at 09:14; Start 10/05/18 at 09:00 Lurasidone HCl (Latuda) 20 mg QHS PO ; Start 10/04/18 at 21:00; Status UNV Metoprolol Tartrate (Lopressor) 25 mg BID PO Last administered on 10/05/18 09: 15; Start 10/04/18 at 21:00 Potassium Chloride (Klor-Con) 20 meq BIDWMEALS PO Last administered on 09:13; Start 10/04/18 at 18:30 Pregabalin (Lyrica) 50 mg BID PO Last administered on 10/05/18 09:13; Start at 21:00 Tramadol HCl (Ultram) 50 mg PRN Q6HRS PRN PO PAIN Last administered on 21:17; Start 10/04/18 at 18:00 Benztropine Mesylate (Cogentin) 1 mg BID PO Last administered on 10/05/18 09: 13; Start 10/04/18 at 21:00 Divalproex Sodium (Depakote) 500 mg BID PO Last administered on 10/05/18 09:13 ; Start 10/04/18 at 21:00 Levothyroxine Sodium (Synthroid) 25 mcg DAILY06 PO Last administered on 07:22; Start 10/05/18 at 06:00 Montelukast Sodium (Singulair) 10 mg QHS PO Last administered on 10/04/18 21: 17; Start 10/04/18 at 21:00 Olanzapine (ZyPREXA) 15 mg QHS PO Last administered on 10/04/18 21:17; Start 10/04/18 at 21:00 Pantoprazole Sodium (Protonix) 40 mg DAILYAC PO Last administered on 10/05/18at 09:12; Start 10/05/18 at 07:30 Non-Formulary Medication (Quetiapine Fumarate (Seroquel)) 1 tab QHS PO ; Start 10/04/18 at 21:00; Status UNV Topiramate (Topamax) 25 mg BID PO Last administered on 10/05/18at 09:14; Start 10/04/18 at 21:00 Warfarin Sodium (Coumadin) 5 mg DAILY16 PO Last administered on 10/04/18at 19:07 ; Start 10/04/18 at 18:30 Promethazine HCl (Phenergan) 12.5 mg PRN QID PRN PO NAUSEA/VOMITING; Start at 18:00 Zolpidem Tartrate (Ambien) 5 mg PRN QHS PRN PO INSOMNIA; Start 10/04/18 at 18: 00 Metoclopramide HCl (Reglan Oral Solution) 5 mg TIDACHC PO Last administered on 10/05/18at 09:12; Start 10/04/18 at 21:00 Warfarin Sodium (Coumadin Per Physician) 1 each PRN DAILY PRN MC SEE COMMENTS; Start 10/04/18 at 18:30 Quetiapine Fumarate (SEROquel) 100 mg QHS PO Last administered on 10/04/18 21: 17; Start 10/04/18 at 21:00 Lurasidone HCl (Latuda) 20 mg QHS PO Last administered on 10/04/18at 21:17; Start 10/04/18 at 21:00 Active Scripts Active Tramadol Hcl 50 Mg Tablet 50 Mg PO Q6HRS PRN Synthroid (Levothyroxine Sodium) 25 Mcg Tablet 25 Mcg PO DAILY07 30 Days Atorvastatin Calcium 10 Mg Tablet 10 Mg PO QHS Reported Divalproex Sodium 500 Mg Tablet.dr 1 Tab PO BID Colestipol Hcl 1 Gm Tablet 1 Gm PO TID Seroquel (Quetiapine Fumarate) 100 Mg Tablet 1 Tab PO QHS Isosorbide Mononitrate Er (Isosorbide Mononitrate) 30 Mg Tab.er.24h 1 Tab PO DAILY Topiramate 25 Mg Tablet 1 Tab PO BID Warfarin Sodium 5 Mg Tablet 1 Tab PO DAILY Furosemide 40 Mg Tablet 1 Tab PO QODAY Latuda (Lurasidone Hcl) 40 Mg Tablet 20 Mg PO QHS Singulair Tablet (Montelukast Sodium) 10 Mg Tablet 1 Tab PO DAILY Zyprexa (Olanzapine) 15 Mg Tablet 1 Tab PO QHS Fluoxetine Hcl 20 Mg Capsule 1 Cap PO DAILY Lyrica (Pregabalin) 50 Mg Capsule 1 Cap PO BID Metoprolol Tartrate 25 Mg Tablet 1 Tab PO BID Lisinopril 20 Mg Tablet 1 Tab PO DAILY Omeprazole 40 Mg Capsule.dr 1 Cap PO DAILY Klor-Con M20 (Potassium Chloride) 20 Meq Tab.er.prt 1 Tab PO BID Benztropine Mesylate 1 Mg Tablet 1 Tab PO BID Fluticasone Propionate Nasal [place] (Fluticasone Propionate) 16 Gm [place].susp 2 Sprays NS BID for seasonal allergies Allergies Allergies: Coded Allergies: Sulfa (Sulfonamide Antibiotics) (Verified Allergy, Severe, rash, tongue swelling, 04/15/15) Iodinated Contrast- Oral and IV Dye (Verified Allergy, Intermediate, rash , 04/15/15) Penicillins (Verified Allergy, Intermediate, Hives, 04/15/15) aspirin (Verified Allergy, Intermediate, Hives, 04/15/15) codeine (Verified Allergy, Intermediate, Hives; SEE COMMENT, 06/08/15) PT REPORTS TAKING LORTAB WITHOUT COMPLICATIONS, PER ED MD diphenhydramine HCl (Verified Allergy, Intermediate, rash, 12/19/13) latex (Verified Allergy, Intermediate, Rash, 12/18/13) ROS Review of System Negative for fever, chills, weight loss, shortness of breath, chest pain, indigestion, hematochezia, melena, and dysuria. Full 14-point review of systems is negative. Physical Exam Physical Examination General: Well-developed, well-nourished white female in no acute distress HEENT: Normocephalic andatraumatic. Tympanic membranes clear.Temporal arteries pulsatile and nontender.Fundoscopic exam unremarkable Neck: Supple without bruit, no meningismus Musculoskeletal: Stability:see neurologic. Gait exam:see neurologic. Tone:see neurologic. Strength:see neurologic. Neurological: Mental Status:intact, orientation, memory, attention span/concentration, language, fund of knowledge normal. Cranial Nerves:Pupils equal and reactive to light, extraocular movements areintact, visual simpson are full to confrontation. Facial sensation is normal. There is no facial asymmetry. Vestibulo-ocular reflex is intact. Palate elevates and tongue protrudes in midline. All other cranial related problems are negative except as mentioned before.Reflexes:1+ and symmetric with flexor plantar responses. Motor:4/5 strength, weaker on the left, with normal tone and bulk. Coordination:Finger- nose finger and [id number] testing are normal. Rapid alternating movements and fine finger movements are intact. Gait: arthritic, uses a cane. Sensory: Normal pinprick, vibration, light touch, proprioception. Vitals VITALS Vital Signs Date Time Temp Pulse Resp B/P (MAP) Pulse Ox O2 Delivery O2 Flow Rate FiO2 10/05/18 09:15 61 105/59 10/05/18 08:00 Room Air 10/05/18 07:17 98.1 16 93 98.1 Labs Labs Laboratory Tests Test 10/04/18 13:00 10/04/18 13:25 10/05/18 03:35 Urine Color Yellow Urine Clarity Clear Urine pH 7.0 Urine Specific [place] 1.020 Urine Protein Negative mg/dL (NEG-TRACE) Urine Glucose (UA) Negative mg/dL (NEG) Urine Ketones (Stick) Negative mg/dL (NEG) Urine Blood Negative (NEG) Urine Nitrite Negative (NEG) Urine Bilirubin Negative (NEG) Urine Urobilinogen Dipstick 1.0 mg/dL (0.2 mg/dL) Urine Leukocyte Esterase Negative (NEG) Urine RBC Occ /HPF (0-2) Urine WBC 1-4 /HPF (0-4) Urine Squamous Epithelial Cells Mod /LPF Urine Bacteria Moderate /HPF (0-FEW) Urine Mucus Slight /LPF Urine Opiates Screen Neg (NEG) Urine Methadone Screen Neg (NEG) Urine Barbiturates Neg (NEG) Urine Phencyclidine Screen Neg (NEG) Urine Amphetamine/Methamphetamine Neg (NEG) Urine Benzodiazepines Screen Neg (NEG) Urine Cocaine Screen Neg (NEG) Urine Cannabinoids Screen Neg (NEG) Urine Ethyl Alcohol Neg (NEG) White Blood Count 5.9 x10^3/uL (4.0-11.0) 5.9 x10^3/uL (4.0-11.0) Red Blood Count 4.60 x10^6/uL (3.50-5.40) 4.51 x10^6/uL (3.50-5.40) Hemoglobin 13.4 g/dL (12.0-15.5) 13.3 g/dL (12.0-15.5) Hematocrit 38.9 % (36.0-47.0) 38.3 % (36.0-47.0) Mean Corpuscular Volume 85 fL (79-100) 85 fL (79-100) Mean Corpuscular Hemoglobin 29 pg (25-35) 30 pg (25-35) Mean Corpuscular Hemoglobin Concent 35 g/dL (31-37) 35 g/dL (31-37) Red Cell Distribution Width 13.8 % (11.5-14.5) 13.9 % (11.5-14.5) Platelet Count 187 x10^3/uL (140-400) 162 x10^3/uL (140-400) Neutrophils (%) (Auto) 66 % (31-73) 51 % (31-73) Lymphocytes (%) (Auto) 27 % (24-48) 40 % (24-48) Monocytes (%) (Auto) 6 % (0-9) 7 % (0-9) Eosinophils (%) (Auto) 1 % (0-3) 2 % (0-3) Basophils (%) (Auto) 1 % (0-3) 1 % (0-3) Neutrophils # (Auto) 3.9 x10^3uL (1.8-7.7) 3.0 x10^3uL (1.8-7.7) Lymphocytes # (Auto) 1.6 x10^3/uL (1.0-4.8) 2.3 x10^3/uL (1.0-4.8) Monocytes # (Auto) 0.3 x10^3/uL (0.0-1.1) 0.4 x10^3/uL (0.0-1.1) Eosinophils # (Auto) 0.1 x10^3/uL (0.0-0.7) 0.1 x10^3/uL (0.0-0.7) Basophils # (Auto) 0.0 x10^3/uL (0.0-0.2) 0.0 x10^3/uL (0.0-0.2) Prothrombin Time 28.4 SEC (11.7-14.0) 29.6 SEC (11.7-14.0) Prothromb Time International Ratio 2.7 (0.8-1.1) 2.8 (0.8-1.1) Sodium Level 139 mmol/L (136-145) 141 mmol/L (136-145) Potassium Level 4.1 mmol/L (3.5-5.1) 3.7 mmol/L (3.5-5.1) Chloride Level 108 mmol/L (98-107) 108 mmol/L (98-107) Carbon Dioxide Level 27 mmol/L (21-32) 28 mmol/L (21-32) Anion Gap 4 (6-14) 5 (6-14) Blood Urea Nitrogen 17 mg/dL (7-20) 16 mg/dL (7-20) Creatinine 0.7 mg/dL (0.6-1.0) 0.8 mg/dL (0.6-1.0) Estimated GFR (Cockcroft-Gault) 85.9 73.7 BUN/Creatinine Ratio 24 (6-20) Glucose Level 93 mg/dL (70-99) 98 mg/dL (70-99) Lactic Acid Level 0.5 mmol/L (0.4-2.0) Calcium Level 9.0 mg/dL (8.5-10.1) 8.8 mg/dL (8.5-10.1) Magnesium Level 1.8 mg/dL (1.8-2.4) Total Bilirubin 0.4 mg/dL (0.2-1.0) Aspartate Amino Transf (AST/SGOT) 17 U/L (15-37) Alanine Aminotransferase (ALT/SGPT) 27 U/L (14-59) Alkaline Phosphatase 92 U/L (46-116) Creatine Kinase 38 U/L (26-192) Troponin I Quantitative < 0.017 ng/mL (0.000-0.055) CY-Ayp-B-Type Natriuretic Peptide 508 pg/mL (0-124) Total Protein 6.3 g/dL (6.4-8.2) Albumin 3.4 g/dL (3.4-5.0) Albumin/Globulin Ratio 1.2 (1.0-1.7) Valproic Acid (Depakene) Level 6 mcg/mL (50-100) Valproic Acid Last Dose Date 10/03/18 Valproic Acid Last Dose Time 2100 Laboratory Tests Test 10/04/18 13:00 10/04/18 13:25 10/05/18 03:35 Urine Color Yellow Urine Clarity Clear Urine pH 7.0 Urine Specific [place] 1.020 Urine Protein Negative mg/dL (NEG-TRACE) Urine Glucose (UA) Negative mg/dL (NEG) Urine Ketones (Stick) Negative mg/dL (NEG) Urine Blood Negative (NEG) Urine Nitrite Negative (NEG) Urine Bilirubin Negative (NEG) Urine Urobilinogen Dipstick 1.0 mg/dL (0.2 mg/dL) Urine Leukocyte Esterase Negative (NEG) Urine RBC Occ /HPF (0-2) Urine WBC 1-4 /HPF (0-4) Urine Squamous Epithelial Cells Mod /LPF Urine Bacteria Moderate /HPF (0-FEW) Urine Mucus Slight /LPF Urine Opiates Screen Neg (NEG) Urine Methadone Screen Neg (NEG) Urine Barbiturates Neg (NEG) Urine Phencyclidine Screen Neg (NEG) Urine Amphetamine/Methamphetamine Neg (NEG) Urine Benzodiazepines Screen Neg (NEG) Urine Cocaine Screen Neg (NEG) Urine Cannabinoids Screen Neg (NEG) Urine Ethyl Alcohol Neg (NEG) White Blood Count 5.9 x10^3/uL (4.0-11.0) 5.9 x10^3/uL (4.0-11.0) Red Blood Count 4.60 x10^6/uL (3.50-5.40) 4.51 x10^6/uL (3.50-5.40) Hemoglobin 13.4 g/dL (12.0-15.5) 13.3 g/dL (12.0-15.5) Hematocrit 38.9 % (36.0-47.0) 38.3 % (36.0-47.0) Mean Corpuscular Volume 85 fL (79-100) 85 fL (79-100) Mean Corpuscular Hemoglobin 29 pg (25-35) 30 pg (25-35) Mean Corpuscular Hemoglobin Concent 35 g/dL (31-37) 35 g/dL (31-37) Red Cell Distribution Width 13.8 % (11.5-14.5) 13.9 % (11.5-14.5) Platelet Count 187 x10^3/uL (140-400) 162 x10^3/uL (140-400) Neutrophils (%) (Auto) 66 % (31-73) 51 % (31-73) Lymphocytes (%) (Auto) 27 % (24-48) 40 % (24-48) Monocytes (%) (Auto) 6 % (0-9) 7 % (0-9) Eosinophils (%) (Auto) 1 % (0-3) 2 % (0-3) Basophils (%) (Auto) 1 % (0-3) 1 % (0-3) Neutrophils # (Auto) 3.9 x10^3uL (1.8-7.7) 3.0 x10^3uL (1.8-7.7) Lymphocytes # (Auto) 1.6 x10^3/uL (1.0-4.8) 2.3 x10^3/uL (1.0-4.8) Monocytes # (Auto) 0.3 x10^3/uL (0.0-1.1) 0.4 x10^3/uL (0.0-1.1) Eosinophils # (Auto) 0.1 x10^3/uL (0.0-0.7) 0.1 x10^3/uL (0.0-0.7) Basophils # (Auto) 0.0 x10^3/uL (0.0-0.2) 0.0 x10^3/uL (0.0-0.2) Prothrombin Time 28.4 SEC (11.7-14.0) 29.6 SEC (11.7-14.0) Prothromb Time International Ratio 2.7 (0.8-1.1) 2.8 (0.8-1.1) Sodium Level 139 mmol/L (136-145) 141 mmol/L (136-145) Potassium Level 4.1 mmol/L (3.5-5.1) 3.7 mmol/L (3.5-5.1) Chloride Level 108 mmol/L (98-107) 108 mmol/L (98-107) Carbon Dioxide Level 27 mmol/L (21-32) 28 mmol/L (21-32) Anion Gap 4 (6-14) 5 (6-14) Blood Urea Nitrogen 17 mg/dL (7-20) 16 mg/dL (7-20) Creatinine 0.7 mg/dL (0.6-1.0) 0.8 mg/dL (0.6-1.0) Estimated GFR (Cockcroft-Gault) 85.9 73.7 BUN/Creatinine Ratio 24 (6-20) Glucose Level 93 mg/dL (70-99) 98 mg/dL (70-99) Lactic Acid Level 0.5 mmol/L (0.4-2.0) Calcium Level 9.0 mg/dL (8.5-10.1) 8.8 mg/dL (8.5-10.1) Magnesium Level 1.8 mg/dL (1.8-2.4) Total Bilirubin 0.4 mg/dL (0.2-1.0) Aspartate Amino Transf (AST/SGOT) 17 U/L (15-37) Alanine Aminotransferase (ALT/SGPT) 27 U/L (14-59) Alkaline Phosphatase 92 U/L (46-116) Creatine Kinase 38 U/L (26-192) Troponin I Quantitative < 0.017 ng/mL (0.000-0.055) QX-Idj-H-Type Natriuretic Peptide 508 pg/mL (0-124) Total Protein 6.3 g/dL (6.4-8.2) Albumin 3.4 g/dL (3.4-5.0) Albumin/Globulin Ratio 1.2 (1.0-1.7) Valproic Acid (Depakene) Level 6 mcg/mL (50-100) Valproic Acid Last Dose Date 10/03/18 Valproic Acid Last Dose Time [address] head and cervical spine without contrast Head CT No acute extra-axial or parenchymal hemorrhage is identified. There is no significant intra-axial mass effect, midline shift, or extra-axial fluid collection. The velázquez-white differentiation of the major vascular territories is preserved. Ventricular size is within normal limits. There is again mild supratentorial atrophy. There is a 1.2 cm left maxillary sinus mucous retention cyst. 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 Impression: 1. No acute intracranial abnormality is identified. Cervical spine CT Comparison: May 20, 2017 Findings: No acute cervical spine fracture is identified. Vertebral body stature and AP alignment are within normal limits. Atlanto-axial distance is within normal limits. There is appropriate alignment of lateral masses of C1 relative to C2. Occipital condylar-C1 relationship is maintained. There is mild degenerative disc disease and spondylosis C4-C5. There is multilevel cervical facet degenerative change. There is mild uncovertebral degenerative change C4-5, mild narrowing of the C4-5 neural foramina. There is mild dextroscoliosis. There is a small focus of nonspecific calcification of posterior right thyroid gland. Impression: 1. No acute cervical spine fracture is identified. Assessment/Plan Assessment/Plan Impression: Epilepsy, noncompliance Syncope, may have been related to seizure, patient is a dreadfully poor historian. 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 Recommendation: Resume Depakote. Electroencephalogram. She cannot have an MRI. Rehabilitation modalities. Thank you for letting me help with the patient's care. JUSTYNA PARKS MD Oct 05, 2018 11:03
--- NOTE | 2018-10-05 11:46 | PDOC ---
PROGRESS NOTES Chief Complaint Chief Complaint Epilepsy, noncompliance Syncope, may have been related to seizure, patient is a dreadfully poor historian. 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 . Syncope, falls CAD: with multiple stents to RCA in 2012. Last C 2014 with nonobstructive disease. MPI 10/2017 did not show any significant ischemia. No rhythm ectopies. . PPM in situ: hx of SSS. ([employer]) AVR: mechanical valve. Recent 2-D echo showed normal function. Chronic coumadin therapy: INR 2.8 . HTN: controlled HLP: statin Schizophrenia/bipolar disorder: History of Present Illness History of Present Illness Feels weak, she can't specifically tell me Other consultants notes reviewed LAbs unimpressive Chest x-ray CT head unremarkable INR therapeutic on warfarin Plan: Follow specialist's input Fall risk PT OT supportive meds full code Vitals Vitals Vital Signs Date Time Temp Pulse Resp B/P (MAP) Pulse Ox O2 Delivery O2 Flow Rate FiO2 10/05/18 09:15 61 105/59 10/05/18 08:00 Room Air 10/05/18 07:17 98.1 16 93 98.1 Physical Exam General: Alert, Oriented X3, Cooperative, No acute distress Heart: Regular rate Lungs: Clear, Other Abdomen: Normal bowel sounds, Soft, No hepatosplenomegaly, No masses, Other ( Epigastric tenderness) Extremities: No clubbing, No cyanosis, No edema, Normal pulses, No tenderness/ swelling Skin: No rashes, No breakdown, No significant lesion Labs LABS Laboratory Tests Test 10/04/18 13:00 10/04/18 13:25 10/05/18 03:35 Urine Color Yellow Urine Clarity Clear Urine pH 7.0 Urine Specific [place] 1.020 Urine Protein Negative mg/dL (NEG-TRACE) Urine Glucose (UA) Negative mg/dL (NEG) Urine Ketones (Stick) Negative mg/dL (NEG) Urine Blood Negative (NEG) Urine Nitrite Negative (NEG) Urine Bilirubin Negative (NEG) Urine Urobilinogen Dipstick 1.0 mg/dL (0.2 mg/dL) Urine Leukocyte Esterase Negative (NEG) Urine RBC Occ /HPF (0-2) Urine WBC 1-4 /HPF (0-4) Urine Squamous Epithelial Cells Mod /LPF Urine Bacteria Moderate /HPF (0-FEW) Urine Mucus Slight /LPF Urine Opiates Screen Neg (NEG) Urine Methadone Screen Neg (NEG) Urine Barbiturates Neg (NEG) Urine Phencyclidine Screen Neg (NEG) Urine Amphetamine/Methamphetamine Neg (NEG) Urine Benzodiazepines Screen Neg (NEG) Urine Cocaine Screen Neg (NEG) Urine Cannabinoids Screen Neg (NEG) Urine Ethyl Alcohol Neg (NEG) White Blood Count 5.9 x10^3/uL (4.0-11.0) 5.9 x10^3/uL (4.0-11.0) Red Blood Count 4.60 x10^6/uL (3.50-5.40) 4.51 x10^6/uL (3.50-5.40) Hemoglobin 13.4 g/dL (12.0-15.5) 13.3 g/dL (12.0-15.5) Hematocrit 38.9 % (36.0-47.0) 38.3 % (36.0-47.0) Mean Corpuscular Volume 85 fL (79-100) 85 fL (79-100) Mean Corpuscular Hemoglobin 29 pg (25-35) 30 pg (25-35) Mean Corpuscular Hemoglobin Concent 35 g/dL (31-37) 35 g/dL (31-37) Red Cell Distribution Width 13.8 % (11.5-14.5) 13.9 % (11.5-14.5) Platelet Count 187 x10^3/uL (140-400) 162 x10^3/uL (140-400) Neutrophils (%) (Auto) 66 % (31-73) 51 % (31-73) Lymphocytes (%) (Auto) 27 % (24-48) 40 % (24-48) Monocytes (%) (Auto) 6 % (0-9) 7 % (0-9) Eosinophils (%) (Auto) 1 % (0-3) 2 % (0-3) Basophils (%) (Auto) 1 % (0-3) 1 % (0-3) Neutrophils # (Auto) 3.9 x10^3uL (1.8-7.7) 3.0 x10^3uL (1.8-7.7) Lymphocytes # (Auto) 1.6 x10^3/uL (1.0-4.8) 2.3 x10^3/uL (1.0-4.8) Monocytes # (Auto) 0.3 x10^3/uL (0.0-1.1) 0.4 x10^3/uL (0.0-1.1) Eosinophils # (Auto) 0.1 x10^3/uL (0.0-0.7) 0.1 x10^3/uL (0.0-0.7) Basophils # (Auto) 0.0 x10^3/uL (0.0-0.2) 0.0 x10^3/uL (0.0-0.2) Prothrombin Time 28.4 SEC (11.7-14.0) 29.6 SEC (11.7-14.0) Prothromb Time International Ratio 2.7 (0.8-1.1) 2.8 (0.8-1.1) Sodium Level 139 mmol/L (136-145) 141 mmol/L (136-145) Potassium Level 4.1 mmol/L (3.5-5.1) 3.7 mmol/L (3.5-5.1) Chloride Level 108 mmol/L (98-107) 108 mmol/L (98-107) Carbon Dioxide Level 27 mmol/L (21-32) 28 mmol/L (21-32) Anion Gap 4 (6-14) 5 (6-14) Blood Urea Nitrogen 17 mg/dL (7-20) 16 mg/dL (7-20) Creatinine 0.7 mg/dL (0.6-1.0) 0.8 mg/dL (0.6-1.0) Estimated GFR (Cockcroft-Gault) 85.9 73.7 BUN/Creatinine Ratio 24 (6-20) Glucose Level 93 mg/dL (70-99) 98 mg/dL (70-99) Lactic Acid Level 0.5 mmol/L (0.4-2.0) Calcium Level 9.0 mg/dL (8.5-10.1) 8.8 mg/dL (8.5-10.1) Magnesium Level 1.8 mg/dL (1.8-2.4) Total Bilirubin 0.4 mg/dL (0.2-1.0) Aspartate Amino Transf (AST/SGOT) 17 U/L (15-37) Alanine Aminotransferase (ALT/SGPT) 27 U/L (14-59) Alkaline Phosphatase 92 U/L (46-116) Creatine Kinase 38 U/L (26-192) Troponin I Quantitative < 0.017 ng/mL (0.000-0.055) DW-Msy-A-Type Natriuretic Peptide 508 pg/mL (0-124) Total Protein 6.3 g/dL (6.4-8.2) Albumin 3.4 g/dL (3.4-5.0) Albumin/Globulin Ratio 1.2 (1.0-1.7) Valproic Acid (Depakene) Level 6 mcg/mL (50-100) Valproic Acid Last Dose Date 10/03/18 Valproic Acid Last Dose Time 2100 Review of Systems Review of Systems Weak, may be headache, the rest of ROS 14 point negative Assessment and Plan Assessmemt and Plan Problems Medical Problems: (1) Fall at home Status: Acute Comment Review of Relevant I have reviewed the following items yonathan (where applicable) has been applied. Labs Laboratory Tests Test 10/04/18 13:00 10/04/18 13:25 10/05/18 03:35 Urine Color Yellow Urine Clarity Clear Urine pH 7.0 Urine Specific [place] 1.020 Urine Protein Negative mg/dL (NEG-TRACE) Urine Glucose (UA) Negative mg/dL (NEG) Urine Ketones (Stick) Negative mg/dL (NEG) Urine Blood Negative (NEG) Urine Nitrite Negative (NEG) Urine Bilirubin Negative (NEG) Urine Urobilinogen Dipstick 1.0 mg/dL (0.2 mg/dL) Urine Leukocyte Esterase Negative (NEG) Urine RBC Occ /HPF (0-2) Urine WBC 1-4 /HPF (0-4) Urine Squamous Epithelial Cells Mod /LPF Urine Bacteria Moderate /HPF (0-FEW) Urine Mucus Slight /LPF Urine Opiates Screen Neg (NEG) Urine Methadone Screen Neg (NEG) Urine Barbiturates Neg (NEG) Urine Phencyclidine Screen Neg (NEG) Urine Amphetamine/Methamphetamine Neg (NEG) Urine Benzodiazepines Screen Neg (NEG) Urine Cocaine Screen Neg (NEG) Urine Cannabinoids Screen Neg (NEG) Urine Ethyl Alcohol Neg (NEG) White Blood Count 5.9 x10^3/uL (4.0-11.0) 5.9 x10^3/uL (4.0-11.0) Red Blood Count 4.60 x10^6/uL (3.50-5.40) 4.51 x10^6/uL (3.50-5.40) Hemoglobin 13.4 g/dL (12.0-15.5) 13.3 g/dL (12.0-15.5) Hematocrit 38.9 % (36.0-47.0) 38.3 % (36.0-47.0) Mean Corpuscular Volume 85 fL (79-100) 85 fL (79-100) Mean Corpuscular Hemoglobin 29 pg (25-35) 30 pg (25-35) Mean Corpuscular Hemoglobin Concent 35 g/dL (31-37) 35 g/dL (31-37) Red Cell Distribution Width 13.8 % (11.5-14.5) 13.9 % (11.5-14.5) Platelet Count 187 x10^3/uL (140-400) 162 x10^3/uL (140-400) Neutrophils (%) (Auto) 66 % (31-73) 51 % (31-73) Lymphocytes (%) (Auto) 27 % (24-48) 40 % (24-48) Monocytes (%) (Auto) 6 % (0-9) 7 % (0-9) Eosinophils (%) (Auto) 1 % (0-3) 2 % (0-3) Basophils (%) (Auto) 1 % (0-3) 1 % (0-3) Neutrophils # (Auto) 3.9 x10^3uL (1.8-7.7) 3.0 x10^3uL (1.8-7.7) Lymphocytes # (Auto) 1.6 x10^3/uL (1.0-4.8) 2.3 x10^3/uL (1.0-4.8) Monocytes # (Auto) 0.3 x10^3/uL (0.0-1.1) 0.4 x10^3/uL (0.0-1.1) Eosinophils # (Auto) 0.1 x10^3/uL (0.0-0.7) 0.1 x10^3/uL (0.0-0.7) Basophils # (Auto) 0.0 x10^3/uL (0.0-0.2) 0.0 x10^3/uL (0.0-0.2) Prothrombin Time 28.4 SEC (11.7-14.0) 29.6 SEC (11.7-14.0) Prothromb Time International Ratio 2.7 (0.8-1.1) 2.8 (0.8-1.1) Sodium Level 139 mmol/L (136-145) 141 mmol/L (136-145) Potassium Level 4.1 mmol/L (3.5-5.1) 3.7 mmol/L (3.5-5.1) Chloride Level 108 mmol/L (98-107) 108 mmol/L (98-107) Carbon Dioxide Level 27 mmol/L (21-32) 28 mmol/L (21-32) Anion Gap 4 (6-14) 5 (6-14) Blood Urea Nitrogen 17 mg/dL (7-20) 16 mg/dL (7-20) Creatinine 0.7 mg/dL (0.6-1.0) 0.8 mg/dL (0.6-1.0) Estimated GFR (Cockcroft-Gault) 85.9 73.7 BUN/Creatinine Ratio 24 (6-20) Glucose Level 93 mg/dL (70-99) 98 mg/dL (70-99) Lactic Acid Level 0.5 mmol/L (0.4-2.0) Calcium Level 9.0 mg/dL (8.5-10.1) 8.8 mg/dL (8.5-10.1) Magnesium Level 1.8 mg/dL (1.8-2.4) Total Bilirubin 0.4 mg/dL (0.2-1.0) Aspartate Amino Transf (AST/SGOT) 17 U/L (15-37) Alanine Aminotransferase (ALT/SGPT) 27 U/L (14-59) Alkaline Phosphatase 92 U/L (46-116) Creatine Kinase 38 U/L (26-192) Troponin I Quantitative < 0.017 ng/mL (0.000-0.055) YU-Eiv-O-Type Natriuretic Peptide 508 pg/mL (0-124) Total Protein 6.3 g/dL (6.4-8.2) Albumin 3.4 g/dL (3.4-5.0) Albumin/Globulin Ratio 1.2 (1.0-1.7) Valproic Acid (Depakene) Level 6 mcg/mL (50-100) Valproic Acid Last Dose Date 10/03/18 Valproic Acid Last Dose Time 2100 Laboratory Tests Test 10/04/18 13:00 10/04/18 13:25 10/05/18 03:35 Urine Color Yellow Urine Clarity Clear Urine pH 7.0 Urine Specific [place] 1.020 Urine Protein Negative mg/dL (NEG-TRACE) Urine Glucose (UA) Negative mg/dL (NEG) Urine Ketones (Stick) Negative mg/dL (NEG) Urine Blood Negative (NEG) Urine Nitrite Negative (NEG) Urine Bilirubin Negative (NEG) Urine Urobilinogen Dipstick 1.0 mg/dL (0.2 mg/dL) Urine Leukocyte Esterase Negative (NEG) Urine RBC Occ /HPF (0-2) Urine WBC 1-4 /HPF (0-4) Urine Squamous Epithelial Cells Mod /LPF Urine Bacteria Moderate /HPF (0-FEW) Urine Mucus Slight /LPF Urine Opiates Screen Neg (NEG) Urine Methadone Screen Neg (NEG) Urine Barbiturates Neg (NEG) Urine Phencyclidine Screen Neg (NEG) Urine Amphetamine/Methamphetamine Neg (NEG) Urine Benzodiazepines Screen Neg (NEG) Urine Cocaine Screen Neg (NEG) Urine Cannabinoids Screen Neg (NEG) Urine Ethyl Alcohol Neg (NEG) White Blood Count 5.9 x10^3/uL (4.0-11.0) 5.9 x10^3/uL (4.0-11.0) Red Blood Count 4.60 x10^6/uL (3.50-5.40) 4.51 x10^6/uL (3.50-5.40) Hemoglobin 13.4 g/dL (12.0-15.5) 13.3 g/dL (12.0-15.5) Hematocrit 38.9 % (36.0-47.0) 38.3 % (36.0-47.0) Mean Corpuscular Volume 85 fL (79-100) 85 fL (79-100) Mean Corpuscular Hemoglobin 29 pg (25-35) 30 pg (25-35) Mean Corpuscular Hemoglobin Concent 35 g/dL (31-37) 35 g/dL (31-37) Red Cell Distribution Width 13.8 % (11.5-14.5) 13.9 % (11.5-14.5) Platelet Count 187 x10^3/uL (140-400) 162 x10^3/uL (140-400) Neutrophils (%) (Auto) 66 % (31-73) 51 % (31-73) Lymphocytes (%) (Auto) 27 % (24-48) 40 % (24-48) Monocytes (%) (Auto) 6 % (0-9) 7 % (0-9) Eosinophils (%) (Auto) 1 % (0-3) 2 % (0-3) Basophils (%) (Auto) 1 % (0-3) 1 % (0-3) Neutrophils # (Auto) 3.9 x10^3uL (1.8-7.7) 3.0 x10^3uL (1.8-7.7) Lymphocytes # (Auto) 1.6 x10^3/uL (1.0-4.8) 2.3 x10^3/uL (1.0-4.8) Monocytes # (Auto) 0.3 x10^3/uL (0.0-1.1) 0.4 x10^3/uL (0.0-1.1) Eosinophils # (Auto) 0.1 x10^3/uL (0.0-0.7) 0.1 x10^3/uL (0.0-0.7) Basophils # (Auto) 0.0 x10^3/uL (0.0-0.2) 0.0 x10^3/uL (0.0-0.2) Prothrombin Time 28.4 SEC (11.7-14.0) 29.6 SEC (11.7-14.0) Prothromb Time International Ratio 2.7 (0.8-1.1) 2.8 (0.8-1.1) Sodium Level 139 mmol/L (136-145) 141 mmol/L (136-145) Potassium Level 4.1 mmol/L (3.5-5.1) 3.7 mmol/L (3.5-5.1) Chloride Level 108 mmol/L (98-107) 108 mmol/L (98-107) Carbon Dioxide Level 27 mmol/L (21-32) 28 mmol/L (21-32) Anion Gap 4 (6-14) 5 (6-14) Blood Urea Nitrogen 17 mg/dL (7-20) 16 mg/dL (7-20) Creatinine 0.7 mg/dL (0.6-1.0) 0.8 mg/dL (0.6-1.0) Estimated GFR (Cockcroft-Gault) 85.9 73.7 BUN/Creatinine Ratio 24 (6-20) Glucose Level 93 mg/dL (70-99) 98 mg/dL (70-99) Lactic Acid Level 0.5 mmol/L (0.4-2.0) Calcium Level 9.0 mg/dL (8.5-10.1) 8.8 mg/dL (8.5-10.1) Magnesium Level 1.8 mg/dL (1.8-2.4) Total Bilirubin 0.4 mg/dL (0.2-1.0) Aspartate Amino Transf (AST/SGOT) 17 U/L (15-37) Alanine Aminotransferase (ALT/SGPT) 27 U/L (14-59) Alkaline Phosphatase 92 U/L (46-116) Creatine Kinase 38 U/L (26-192) Troponin I Quantitative < 0.017 ng/mL (0.000-0.055) OU-Bil-W-Type Natriuretic Peptide 508 pg/mL (0-124) Total Protein 6.3 g/dL (6.4-8.2) Albumin 3.4 g/dL (3.4-5.0) Albumin/Globulin Ratio 1.2 (1.0-1.7) Valproic Acid (Depakene) Level 6 mcg/mL (50-100) Valproic Acid Last Dose Date 10/03/18 Valproic Acid Last Dose Time 2100 Medications Current Medications Ondansetron HCl (Zofran) 4 mg 1X ONCE IV Last administered on 10/04/18at 13:37 ; Start 10/04/18 at 13:15; Stop 10/04/18 at 13:16; Status DC Acetaminophen/ Hydrocodone Bitart (Lortab 5/325) 1 tab 1X ONCE PO Last administered on 10/04/18at 15:00; Start 10/04/18 at 14:30; Stop 1/22/19 at 14:31 ; Status DC Atorvastatin Calcium (Lipitor) 10 mg QHS PO Last administered on 10/04/18 21: 16; Start 10/04/18 at 21:00 Colestipol HCl (Colestid) 1 gm TID@1000,1500,2200 PO Last administered on 21:17; Start 10/04/18 at 22:00 Fluoxetine HCl (PROzac) 20 mg DAILY PO Last administered on 10/05/18 09:14; Start 10/05/18 at 09:00 Fluticasone Propionate (Flonase) 2 spray BID NS Last administered on 10/05/18 09:17; Start 10/04/18 at 21:00 Isosorbide Mononitrate (Imdur) 30 mg DAILY PO Last administered on 10/05/18 09 :14; Start 10/05/18 at 09:00 Lisinopril (Prinivil) 20 mg DAILY PO Last administered on 10/05/18 09:14; Start 10/05/18 at 09:00 Lurasidone HCl (Latuda) 20 mg QHS PO ; Start 10/04/18 at 21:00; Status UNV Metoprolol Tartrate (Lopressor) 25 mg BID PO Last administered on 10/05/18 09: 15; Start 10/04/18 at 21:00 Potassium Chloride (Klor-Con) 20 meq BIDWMEALS PO Last administered on 09:13; Start 10/04/18 at 18:30 Pregabalin (Lyrica) 50 mg BID PO Last administered on 10/05/18 09:13; Start at 21:00 Tramadol HCl (Ultram) 50 mg PRN Q6HRS PRN PO PAIN Last administered on 21:17; Start 10/04/18 at 18:00 Benztropine Mesylate (Cogentin) 1 mg BID PO Last administered on 10/05/18 09: 13; Start 10/04/18 at 21:00 Divalproex Sodium (Depakote) 500 mg BID PO Last administered on 10/05/18 09:13 ; Start 10/04/18 at 21:00 Levothyroxine Sodium (Synthroid) 25 mcg DAILY06 PO Last administered on 07:22; Start 10/05/18 at 06:00 Montelukast Sodium (Singulair) 10 mg QHS PO Last administered on 10/04/18at 21: 17; Start 10/04/18 at 21:00 Olanzapine (ZyPREXA) 15 mg QHS PO Last administered on 10/04/18 21:17; Start 10/04/18 at 21:00 Pantoprazole Sodium (Protonix) 40 mg DAILYAC PO Last administered on 10/05/18at 09:12; Start 10/05/18 at 07:30 Non-Formulary Medication (Quetiapine Fumarate (Seroquel)) 1 tab QHS PO ; Start 10/04/18 at 21:00; Status UNV Topiramate (Topamax) 25 mg BID PO Last administered on 10/05/18at 09:14; Start 10/04/18 at 21:00 Warfarin Sodium (Coumadin) 5 mg DAILY16 PO Last administered on 10/04/18at 19:07 ; Start 10/04/18 at 18:30 Promethazine HCl (Phenergan) 12.5 mg PRN QID PRN PO NAUSEA/VOMITING; Start at 18:00 Zolpidem Tartrate (Ambien) 5 mg PRN QHS PRN PO INSOMNIA; Start 10/04/18 at 18: 00 Metoclopramide HCl (Reglan Oral Solution) 5 mg TIDACHC PO Last administered on 10/05/18at 09:12; Start 10/04/18 at 21:00 Warfarin Sodium (Coumadin Per Physician) 1 each PRN DAILY PRN MC SEE COMMENTS; Start 10/04/18 at 18:30 Quetiapine Fumarate (SEROquel) 100 mg QHS PO Last administered on 10/04/18 21: 17; Start 10/04/18 at 21:00 Lurasidone HCl (Latuda) 20 mg QHS PO Last administered on 10/04/18at 21:17; Start 10/04/18 at 21:00 Active Scripts Active Tramadol Hcl 50 Mg Tablet 50 Mg PO Q6HRS PRN Synthroid (Levothyroxine Sodium) 25 Mcg Tablet 25 Mcg PO DAILY07 30 Days Atorvastatin Calcium 10 Mg Tablet 10 Mg PO QHS Reported Divalproex Sodium 500 Mg Tablet.dr 1 Tab PO BID Colestipol Hcl 1 Gm Tablet 1 Gm PO TID Seroquel (Quetiapine Fumarate) 100 Mg Tablet 1 Tab PO QHS Isosorbide Mononitrate Er (Isosorbide Mononitrate) 30 Mg Tab.er.24h 1 Tab PO DAILY Topiramate 25 Mg Tablet 1 Tab PO BID Warfarin Sodium 5 Mg Tablet 1 Tab PO DAILY Furosemide 40 Mg Tablet 1 Tab PO QODAY Latuda (Lurasidone Hcl) 40 Mg Tablet 20 Mg PO QHS Singulair Tablet (Montelukast Sodium) 10 Mg Tablet 1 Tab PO DAILY Zyprexa (Olanzapine) 15 Mg Tablet 1 Tab PO QHS Fluoxetine Hcl 20 Mg Capsule 1 Cap PO DAILY Lyrica (Pregabalin) 50 Mg Capsule 1 Cap PO BID Metoprolol Tartrate 25 Mg Tablet 1 Tab PO BID Lisinopril 20 Mg Tablet 1 Tab PO DAILY Omeprazole 40 Mg Capsule.dr 1 Cap PO DAILY Klor-Con M20 (Potassium Chloride) 20 Meq Tab.er.prt 1 Tab PO BID Benztropine Mesylate 1 Mg Tablet 1 Tab PO BID Fluticasone Propionate Nasal [place] (Fluticasone Propionate) 16 Gm [place].susp 2 Sprays NS BID for seasonal allergies Vitals/I & O Vital Sign - Last 24 Hours 10/04/18 10/04/18 10/04/18 10/04/18 13:14 13:40 14:39 15:30 Temp 98.3 98.3 Pulse 61 60 60 60 Resp 18 18 B/P (MAP) 138/72 (94) 133/66 (88) 122/61 (81) 121/69 (86) Pulse Ox 97 97 94 95 O2 Delivery Room Air Room Air Room Air Room Air 10/04/18 10/04/18 10/04/18 10/04/18 16:00 17:40 19:20 19:51 Temp 97.9 97.9 Pulse 60 59 Resp 18 B/P (MAP) 130/70 (90) 104/47 (66) Pulse Ox 95 94 O2 Delivery Room Air Room Air Room Air Room Air 10/04/18 10/04/18 10/04/18 10/04/18 21:00 21:17 23:13 23:25 Temp 98.1 98.1 Pulse 59 58 Resp 18 B/P (MAP) 104/47 91/50 (64) Pulse Ox 93 O2 Delivery Room Air Room Air Room Air 10/05/18 10/05/18 10/05/18 10/05/18 03:25 07:17 08:00 09:14 Temp 98.2 98.1 98.2 98.1 Pulse 60 61 61 Resp 18 16 B/P (MAP) 92/50 (64) 105/59 (74) 105/59 Pulse Ox 94 93 O2 Delivery Room Air Room Air Room Air 10/05/18 10/05/18 09:14 09:15 Pulse 61 61 B/P (MAP) 105/59 105/59 Intake and Output 10/04/18 10/04/18 10/05/18 15:01 23:01 07:01 Intake Total 50 ml 200 ml Balance 50 ml 200 ml LORI EDOUARD MD Oct 05, 2018 11:46
[2018-10-05] MEDS ORDERED: ONDANSETRON PF 4 MG/2 ML VIAL. IV PRN (12:00)
[2018-10-05] MEDS ORDERED: ACETAMINOPHEN 500 MG TABLET PO PRN (12:00)
[2018-10-05] MEDS: traMADol 50 MG TABLET PO PRN ×2 (12:32→17:22)
--- NOTE | 2018-10-05 15:02 | EEG ---
DATE OF SERVICE: 10/05/2018 EEG NUMBER [id number] OBJECTIVE: The patient is a 58-year-old female with seizures. DESCRIPTION: This is a digital study. Electrodes are placed according to the international 10-20 system. Bipolar and referential montages are available. Activation procedures typically include hyperventilation and intermittent photic stimulation. INTERPRETATION: The waking background consists of 8-9 Hz, 50-100 microvolt activity, symmetrically distributed over parietooccipital regions and reactive to eye opening. There are frequent slow sharp waves with phase reversal at electrode C3 (for instance, 10:17:41). Stage 1 sleep is achieved with normal electroencephalogram patterns. Hyperventilation and intermittent photic stimulation are noncontributory. IMPRESSION: This electroencephalogram with the patient awake and asleep is abnormal because of an epileptic disturbance of cerebral activity over the left central region. Thank you for letting us help with the patient's care. JUSTYNA PARKS MD DR: FRANSICO/cori JOB#: [id number] / [id number] RUBIO Birch DR.
[2018-10-05 15:07] VITALS: BP 107/53
[2018-10-05] MEDS: WARFARIN 5 MG TABLET. PO SCH (17:22)
[2018-10-05 19:53] VITALS: BP 97/52
[2018-10-05] MEDS: LURASIDONE 40 MG TABLET. PO SCH (21:00)
[2018-10-05] MEDS: OLANZapine 5 MG TABLET PO SCH (21:00)
[2018-10-05] MEDS: MONTELUKAST SODIUM 10 MG TABLET. PO SCH (21:02)
[2018-10-05] MEDS: QUEtiapine 100 MG TABLET. PO SCH (21:02)
[2018-10-05] MEDS: ATORVASTATIN CALCIUM 10 MG TABLET. PO SCH (21:02)
[2018-10-05 23:27] VITALS: BP 100/54
[2018-10-06] VITALS (8 sets, daily range): BP systolic 99–150; BP diastolic 45–80
[2018-10-06] MEDS: traMADol 50 MG TABLET PO PRN ×3 (00:54→21:29)
[2018-10-06 04:38] LABS: BASO % 0 % (0-3); EOS # 0.1 x10^3/uL (0.0-0.7); EOS % 2 % (0-3); HEMATOCRIT 37.2 % (36.0-47.0); HEMOGLOBIN 12.7 g/dL (12.0-15.5); LYMPH # 1.8 x10^3/uL (1.0-4.8); LYMPH % 30 % (24-48); MEAN CORPUSCULAR HEMOGLOBIN 29 pg (25-35); MEAN CORPUSCULAR HGB CONC 34 g/dL (31-37); MEAN CORPUSCULAR VOLUME 85 fL (79-100); MONO # 0.4 x10^3/uL (0.0-1.1); MONO % 7 % (0-9); NEUT # 3.8 x10^3uL (1.8-7.7); NEUT % 62 % (31-73); PLATELET COUNT 143 x10^3/uL (140-400); RED BLOOD COUNT 4.37 x10^6/uL (3.50-5.40); RED CELL DISTRIBUTION WIDTH 13.8 % (11.5-14.5); WHITE BLOOD COUNT 6.2 x10^3/uL (4.0-11.0)
[2018-10-06 04:47] LABS: PROTHROMBIN TIME PATIENT 36.3 SEC (11.7-14.0)
[2018-10-06 04:56] LABS: CALCIUM 8.9 mg/dL (8.5-10.1); CREATININE 0.8 mg/dL (0.6-1.0); GFR 73.7; POTASSIUM 3.8 mmol/L (3.5-5.1)
[2018-10-06] MEDS: METOCLOPRAMIDE ORAL SOLN 10 MG/10 ML SOLUTION. PO SCH ×4 (06:27→21:28)
[2018-10-06] MEDS: PANTOPRAZOLE 40 MG TABLET.DR. PO SCH (06:27)
[2018-10-06] MEDS: LEVOTHYROXINE 25 MCG TABLET. PO SCH (06:28)
--- NOTE | 2018-10-06 08:35 | NUR ---
SW following pt for anticipated dc needs. Chart reviewed. Pt lives at home with spouse and is on room air. PT/OT recommends home health. SW will arrange HH if ordered by Physician. TRISHA GONZALEZ.
--- NOTE | 2018-10-06 09:33 | PDOC ---
PROGRESS NOTES Subjective Subjective sleepy this morning Objective Objective Vital Signs Date Time Temp Pulse Resp B/P (MAP) Pulse Ox O2 Delivery O2 Flow Rate FiO2 10/06/18 07:00 97.9 69 18 150/50 (83) 94 Room Air 97.9 Intake and Output 10/06/18 07:01 Intake Total 1800 ml Balance 1800 ml Intake Oral 1800 ml # Voids 7 Physical Exam Abdomen: Normal bowel sounds, Soft, No hepatosplenomegaly, No masses, Other ( Epigastric tenderness) Heart: Regular rate Extremities: No clubbing, No cyanosis, No edema, Normal pulses, No tenderness/ swelling General: Alert, Oriented X3, Cooperative, No acute distress HEENT: Atraumatic, PERRLA, EOMI, Mucous membr. 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 Syncope, falls CAD: with multiple stents to RCA in 2012. Last [facility] 2014 with nonobstructive disease. MPI 10/2017 did not show any significant ischemia. No rhythm ectopies. PPM in situ: hx of SSS. ([employer]) AVR: mechanical valve. Recent 2-D echo showed normal function. Chronic coumadin therapy: INR 3.6 today HTN: controlled HLP: statin Schizophrenia/bipolar disorder: PLAN: EEG showed seizures Pacemaker check pt/ot home tomorrow Plan Plan of Care Problems Medical Problems: (1) Fall at home Status: Acute Comment Review of Relevant I have reviewed the following items yonathan (where applicable) has been applied. Labs Laboratory Tests Test 10/06/18 03:35 White Blood Count 6.2 x10^3/uL (4.0-11.0) Red Blood Count 4.37 x10^6/uL (3.50-5.40) Hemoglobin 12.7 g/dL (12.0-15.5) Hematocrit 37.2 % (36.0-47.0) Mean Corpuscular Volume 85 fL (79-100) Mean Corpuscular Hemoglobin 29 pg (25-35) Mean Corpuscular Hemoglobin Concent 34 g/dL (31-37) Red Cell Distribution Width 13.8 % (11.5-14.5) Platelet Count 143 x10^3/uL (140-400) Neutrophils (%) (Auto) 62 % (31-73) Lymphocytes (%) (Auto) 30 % (24-48) Monocytes (%) (Auto) 7 % (0-9) Eosinophils (%) (Auto) 2 % (0-3) Basophils (%) (Auto) 0 % (0-3) Neutrophils # (Auto) 3.8 x10^3uL (1.8-7.7) Lymphocytes # (Auto) 1.8 x10^3/uL (1.0-4.8) Monocytes # (Auto) 0.4 x10^3/uL (0.0-1.1) Eosinophils # (Auto) 0.1 x10^3/uL (0.0-0.7) Basophils # (Auto) 0.0 x10^3/uL (0.0-0.2) Prothrombin Time 36.3 SEC (11.7-14.0) Prothromb Time International Ratio 3.6 (0.8-1.1) Sodium Level 143 mmol/L (136-145) Potassium Level 3.8 mmol/L (3.5-5.1) Chloride Level 106 mmol/L (98-107) Carbon Dioxide Level 27 mmol/L (21-32) Anion Gap 10 (6-14) Blood Urea Nitrogen 15 mg/dL (7-20) Creatinine 0.8 mg/dL (0.6-1.0) Estimated GFR (Cockcroft-Gault) 73.7 Glucose Level 102 mg/dL (70-99) Calcium Level 8.9 mg/dL (8.5-10.1) Medications Current Medications Acetaminophen (Tylenol) 500 mg PRN Q6HRS PRN PO MILD PAIN / TEMP; Start at 12:00 Metoclopramide HCl (Reglan Oral Solution) 5 mg QIDACHS PO Last administered on 10/06/18at 06:27; Start 10/05/18 at 16:30 Ondansetron HCl (Zofran) 4 mg PRN Q6HRS PRN IV NAUSEA/VOMITING; Start 10/05/18 at 12:00 Vitals/I & O Vital Sign - Last 24 Hours 10/05/18 10/05/18 10/05/18 10/05/18 12:32 15:07 17:22 19:53 Temp 97.5 98.0 97.5 98.0 Pulse 60 60 Resp 17 17 18 B/P (MAP) 107/53 (71) 97/52 (67) Pulse Ox 94 94 95 O2 Delivery Room Air Room Air Room Air Room Air 10/05/18 10/05/18 10/06/18 10/06/18 21:00 23:27 00:54 01:54 Temp 98.3 98.3 Pulse 60 61 Resp 18 18 17 B/P (MAP) 97/52 100/54 (69) Pulse Ox 95 O2 Delivery Room Air Room Air Room Air 10/06/18 10/06/18 03:20 07:00 Temp 98.4 97.9 98.4 97.9 Pulse 59 69 Resp 16 18 B/P (MAP) 116/58 (77) 150/50 (83) Pulse Ox 94 94 O2 Delivery Room Air Intake and Output 10/05/18 10/05/18 10/06/18 15:01 23:01 07:01 Intake Total 300 ml 740 ml 760 ml Balance 300 ml 740 ml 760 ml NICOLE SMITH MD Oct 06, 2018 09:33
[2018-10-06] MEDS: COLESTIPOL HCL 1 GM TABLET PO SCH ×3 (09:51→21:29)
[2018-10-06] MEDS: PREGABALIN 50 MG CAPSULE PO SCH ×2 (09:52→21:30)
[2018-10-06] MEDS: DIVALPROEX DELAYED RELEASE 500 MG TABLET.DR. PO SCH ×2 (09:52→21:29)
[2018-10-06] MEDS: FLUoxetine HCL 20 MG CAPSULE PO SCH (09:52)
[2018-10-06] MEDS: BENZTROPINE MESYLATE 1 MG TABLET. PO SCH ×2 (09:53→21:29)
[2018-10-06] MEDS: POTASSIUM CHLORIDE 20 MEQ TABLET.ER. PO SCH ×2 (09:53→18:17)
[2018-10-06] MEDS: TOPIRAMATE 25 MG TABLET. PO SCH ×2 (09:54→21:30)
[2018-10-06] MEDS: ISOSORBIDE MONONITRATE ER 30 MG TAB.ER.24H PO SCH (09:54)
[2018-10-06] MEDS: METOPROLOL TART IMMED RELEASE 25 MG TABLET. PO SCH ×2 (09:55→21:30)
[2018-10-06] MEDS: LISINOPRIL 20 MG TABLET PO SCH (09:56)
[2018-10-06] MEDS: FLUTICASONE 50MCG/NASAL SPRAY 16GM BOTTLE. NS SCH ×2 (09:57→21:28)
--- NOTE | 2018-10-06 10:48 | PDOC ---
Subjective: Subjective: A bit difficult to rouse when I saw earlier this morning. Hadn't eaten breakfast yet. RN unaware of any vomiting. Objective: Vital Signs: Vital Signs Date Time Temp Pulse Resp B/P (MAP) Pulse Ox O2 Delivery O2 Flow Rate FiO2 10/06/18 10:14 61 131/58 (82) 10/06/18 07:00 97.9 18 94 Room Air 97.9 Labs: Laboratory Tests Test 10/06/18 03:35 White Blood Count 6.2 x10^3/uL Red Blood Count 4.37 x10^6/uL Hemoglobin 12.7 g/dL Hematocrit 37.2 % Mean Corpuscular Volume 85 fL Mean Corpuscular Hemoglobin 29 pg Mean Corpuscular Hemoglobin Concent 34 g/dL Red Cell Distribution Width 13.8 % Platelet Count 143 x10^3/uL Neutrophils (%) (Auto) 62 % Lymphocytes (%) (Auto) 30 % Monocytes (%) (Auto) 7 % Eosinophils (%) (Auto) 2 % Basophils (%) (Auto) 0 % Neutrophils # (Auto) 3.8 x10^3uL Lymphocytes # (Auto) 1.8 x10^3/uL Monocytes # (Auto) 0.4 x10^3/uL Eosinophils # (Auto) 0.1 x10^3/uL Basophils # (Auto) 0.0 x10^3/uL Prothrombin Time 36.3 SEC Prothromb Time International Ratio 3.6 Sodium Level 143 mmol/L Potassium Level 3.8 mmol/L Chloride Level 106 mmol/L Carbon Dioxide Level 27 mmol/L Anion Gap 10 Blood Urea Nitrogen 15 mg/dL Creatinine 0.8 mg/dL Estimated GFR (Cockcroft-Gault) 73.7 Glucose Level 102 mg/dL Calcium Level 8.9 mg/dL Imaging: EEG IMPRESSION: This electroencephalogram with the patient awake and asleep is abnormal because of an epileptic disturbance of cerebral activity over the left central region. PE: GEN: NAD LUNGS: CTAB HEART: RRR ABD: left-sided tenderness per usual NEURO/PSYCH: sleeping, briefly opened eyes A/P: Syncope vs seizure - h/o epilepsy/non-compliance, EEG as above GERD, gastroparesis, chronic abd pain - stable -- Continue PPI and Reglan. ANANT OLIVAREZ Oct 06, 2018 10:48
[2018-10-06] MEDS: PROMETHAZINE 12.5 MG TABLET. PO PRN ×2 (13:21→21:30)
--- NOTE | 2018-10-06 14:19 | PDOC ---
PROGRESS NOTES Assessment Problems Medical Problems: (1) Fall at home Status: Acute Epilepsy, noncompliance, left central epileptic focus on EEG yesterday. She says that she had a seizure last night and the nurses had to hold her down, there is no notation of this in the chart Syncope, may have been related to seizure, patient is a dreadfully poor historian. 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 Plan Depakote. Rehabilitation modalities. Agree with discharge tomorrow Follow-up with me in 2 months. Subjective Seizure story as above. Objective Vital Signs Date Time Temp Pulse Resp B/P (MAP) Pulse Ox O2 Delivery O2 Flow Rate FiO2 10/06/18 13:21 94 Room Air 10/06/18 10:14 61 131/58 (82) 10/06/18 07:00 97.9 18 97.9 Intake and Output 10/06/18 07:01 Intake Total 1800 ml Balance 1800 ml Intake Oral 1800 ml # Voids 7 PHYSICAL EXAM Physical Exam: Alert. Oriented to time, place and person, consistent with intellectual disability. PERRL. EOMI. CN: no focal findings. Muscle tone: normal. Muscle strength: 4/5 DTR: 1+ Plantar reflex: flexor Gait: not examined in bed. Sensory exam: no abnormal findings. No cerebellar signs elicited. Review of Relevant I have reviewed the following items yonathan (where applicable) has been applied. Labs Laboratory Tests Test 10/05/18 03:35 10/06/18 03:35 White Blood Count 5.9 x10^3/uL (4.0-11.0) 6.2 x10^3/uL (4.0-11.0) Red Blood Count 4.51 x10^6/uL (3.50-5.40) 4.37 x10^6/uL (3.50-5.40) Hemoglobin 13.3 g/dL (12.0-15.5) 12.7 g/dL (12.0-15.5) Hematocrit 38.3 % (36.0-47.0) 37.2 % (36.0-47.0) Mean Corpuscular Volume 85 fL (79-100) 85 fL (79-100) Mean Corpuscular Hemoglobin 30 pg (25-35) 29 pg (25-35) Mean Corpuscular Hemoglobin Concent 35 g/dL (31-37) 34 g/dL (31-37) Red Cell Distribution Width 13.9 % (11.5-14.5) 13.8 % (11.5-14.5) Platelet Count 162 x10^3/uL (140-400) 143 x10^3/uL (140-400) Neutrophils (%) (Auto) 51 % (31-73) 62 % (31-73) Lymphocytes (%) (Auto) 40 % (24-48) 30 % (24-48) Monocytes (%) (Auto) 7 % (0-9) 7 % (0-9) Eosinophils (%) (Auto) 2 % (0-3) 2 % (0-3) Basophils (%) (Auto) 1 % (0-3) 0 % (0-3) Neutrophils # (Auto) 3.0 x10^3uL (1.8-7.7) 3.8 x10^3uL (1.8-7.7) Lymphocytes # (Auto) 2.3 x10^3/uL (1.0-4.8) 1.8 x10^3/uL (1.0-4.8) Monocytes # (Auto) 0.4 x10^3/uL (0.0-1.1) 0.4 x10^3/uL (0.0-1.1) Eosinophils # (Auto) 0.1 x10^3/uL (0.0-0.7) 0.1 x10^3/uL (0.0-0.7) Basophils # (Auto) 0.0 x10^3/uL (0.0-0.2) 0.0 x10^3/uL (0.0-0.2) Prothrombin Time 29.6 SEC (11.7-14.0) 36.3 SEC (11.7-14.0) Prothromb Time International Ratio 2.8 (0.8-1.1) 3.6 (0.8-1.1) Sodium Level 141 mmol/L (136-145) 143 mmol/L (136-145) Potassium Level 3.7 mmol/L (3.5-5.1) 3.8 mmol/L (3.5-5.1) Chloride Level 108 mmol/L (98-107) 106 mmol/L (98-107) Carbon Dioxide Level 28 mmol/L (21-32) 27 mmol/L (21-32) Anion Gap 5 (6-14) 10 (6-14) Blood Urea Nitrogen 16 mg/dL (7-20) 15 mg/dL (7-20) Creatinine 0.8 mg/dL (0.6-1.0) 0.8 mg/dL (0.6-1.0) Estimated GFR (Cockcroft-Gault) 73.7 73.7 Glucose Level 98 mg/dL (70-99) 102 mg/dL (70-99) Calcium Level 8.8 mg/dL (8.5-10.1) 8.9 mg/dL (8.5-10.1) Laboratory Tests Test 10/06/18 03:35 White Blood Count 6.2 x10^3/uL (4.0-11.0) Red Blood Count 4.37 x10^6/uL (3.50-5.40) Hemoglobin 12.7 g/dL (12.0-15.5) Hematocrit 37.2 % (36.0-47.0) Mean Corpuscular Volume 85 fL (79-100) Mean Corpuscular Hemoglobin 29 pg (25-35) Mean Corpuscular Hemoglobin Concent 34 g/dL (31-37) Red Cell Distribution Width 13.8 % (11.5-14.5) Platelet Count 143 x10^3/uL (140-400) Neutrophils (%) (Auto) 62 % (31-73) Lymphocytes (%) (Auto) 30 % (24-48) Monocytes (%) (Auto) 7 % (0-9) Eosinophils (%) (Auto) 2 % (0-3) Basophils (%) (Auto) 0 % (0-3) Neutrophils # (Auto) 3.8 x10^3uL (1.8-7.7) Lymphocytes # (Auto) 1.8 x10^3/uL (1.0-4.8) Monocytes # (Auto) 0.4 x10^3/uL (0.0-1.1) Eosinophils # (Auto) 0.1 x10^3/uL (0.0-0.7) Basophils # (Auto) 0.0 x10^3/uL (0.0-0.2) Prothrombin Time 36.3 SEC (11.7-14.0) Prothromb Time International Ratio 3.6 (0.8-1.1) Sodium Level 143 mmol/L (136-145) Potassium Level 3.8 mmol/L (3.5-5.1) Chloride Level 106 mmol/L (98-107) Carbon Dioxide Level 27 mmol/L (21-32) Anion Gap 10 (6-14) Blood Urea Nitrogen 15 mg/dL (7-20) Creatinine 0.8 mg/dL (0.6-1.0) Estimated GFR (Cockcroft-Gault) 73.7 Glucose Level 102 mg/dL (70-99) Calcium Level 8.9 mg/dL (8.5-10.1) Microbiology 10/04/18 Urine Culture - Final, Complete 10/04/18 Urine Culture Result 1 (JOYCE) - Final, Complete Medications Current Medications Ondansetron HCl (Zofran) 4 mg 1X ONCE IV Last administered on 10/04/18at 13:37 ; Start 10/04/18 at 13:15; Stop 10/04/18 at 13:16; Status DC Acetaminophen/ Hydrocodone Bitart (Lortab 5/325) 1 tab 1X ONCE PO Last administered on 10/04/18at 15:00; Start 10/04/18 at 14:30; Stop 10/04/18 at 14:31 ; Status DC Atorvastatin Calcium (Lipitor) 10 mg QHS PO Last administered on 10/05/18at 21: 02; Start 10/04/18 at 21:00 Colestipol HCl (Colestid) 1 gm TID@1000,1500,2200 PO Last administered on 09:51; Start 10/04/18 at 22:00 Fluoxetine HCl (PROzac) 20 mg DAILY PO Last administered on 10/06/18 09:52; Start 10/05/18 at 09:00 Fluticasone Propionate (Flonase) 2 spray BID NS Last administered on 10/06/18 09:57; Start 10/04/18 at 21:00 Isosorbide Mononitrate (Imdur) 30 mg DAILY PO Last administered on 10/06/18 09 :54; Start 10/05/18 at 09:00 Lisinopril (Prinivil) 20 mg DAILY PO Last administered on 10/06/18 09:56; Start 10/05/18 at 09:00 Lurasidone HCl (Latuda) 20 mg QHS PO ; Start 10/04/18 at 21:00; Status UNV Metoprolol Tartrate (Lopressor) 25 mg BID PO Last administered on 10/06/18 09: 55; Start 10/04/18 at 21:00 Potassium Chloride (Klor-Con) 20 meq BIDWMEALS PO Last administered on 09:53; Start 10/04/18 at 18:30 Pregabalin (Lyrica) 50 mg BID PO Last administered on 10/06/18 09:52; Start at 21:00 Tramadol HCl (Ultram) 50 mg PRN Q6HRS PRN PO PAIN Last administered on 13:21; Start 10/04/18 at 18:00 Benztropine Mesylate (Cogentin) 1 mg BID PO Last administered on 10/06/18 09: 53; Start 10/04/18 at 21:00 Divalproex Sodium (Depakote) 500 mg BID PO Last administered on 10/06/18 09:52 ; Start 10/04/18 at 21:00 Levothyroxine Sodium (Synthroid) 25 mcg DAILY06 PO Last administered on 06:28; Start 10/05/18 at 06:00 Montelukast Sodium (Singulair) 10 mg QHS PO Last administered on 10/05/18 21: 02; Start 10/04/18 at 21:00 Olanzapine (ZyPREXA) 15 mg QHS PO Last administered on 10/05/18 21:00; Start 10/04/18 at 21:00 Pantoprazole Sodium (Protonix) 40 mg DAILYAC PO Last administered on 10/06/18 06:27; Start 10/05/18 at 07:30 Non-Formulary Medication (Quetiapine Fumarate (Seroquel)) 1 tab QHS PO ; Start 10/04/18 at 21:00; Status UNV Topiramate (Topamax) 25 mg BID PO Last administered on 10/06/18 09:54; Start 10/04/18 at 21:00 Warfarin Sodium (Coumadin) 5 mg DAILY16 PO Last administered on 10/05/18at 17:22 ; Start 10/04/18 at 18:30 Promethazine HCl (Phenergan) 12.5 mg PRN QID PRN PO NAUSEA/VOMITING Last administered on 10/06/18at 13:21; Start 10/04/18 at 18:00 Zolpidem Tartrate (Ambien) 5 mg PRN QHS PRN PO INSOMNIA; Start 10/04/18 at 18: 00 Metoclopramide HCl (Reglan Oral Solution) 5 mg TIDACHC PO Last administered on 10/05/18at 12:28; Start 10/04/18 at 21:00; Stop 10/05/18 at 14:34; Status DC Warfarin Sodium (Coumadin Per Physician) 1 each PRN DAILY PRN MC SEE COMMENTS Last administered on 10/05/18at 16:26; Start 10/04/18 at 18:30 Quetiapine Fumarate (SEROquel) 100 mg QHS PO Last administered on 10/05/18at 21: 02; Start 10/04/18 at 21:00 Lurasidone HCl (Latuda) 20 mg QHS PO Last administered on 10/05/18at 21:00; Start 10/04/18 at 21:00 Acetaminophen (Tylenol) 500 mg PRN Q6HRS PRN PO MILD PAIN / TEMP; Start at 12:00 Ondansetron HCl (Zofran) 4 mg PRN Q6HRS PRN IV NAUSEA/VOMITING; Start 10/05/18 at 12:00 Metoclopramide HCl (Reglan Oral Solution) 5 mg QIDACHS PO Last administered on 10/06/18at 12:08; Start 10/05/18 at 16:30 Active Scripts Active Tramadol Hcl 50 Mg Tablet 50 Mg PO Q6HRS PRN Synthroid (Levothyroxine Sodium) 25 Mcg Tablet 25 Mcg PO DAILY07 30 Days Atorvastatin Calcium 10 Mg Tablet 10 Mg PO QHS Reported Divalproex Sodium 500 Mg Tablet.dr 1 Tab PO BID Colestipol Hcl 1 Gm Tablet 1 Gm PO TID Seroquel (Quetiapine Fumarate) 100 Mg Tablet 1 Tab PO QHS Isosorbide Mononitrate Er (Isosorbide Mononitrate) 30 Mg Tab.er.24h 1 Tab PO DAILY Topiramate 25 Mg Tablet 1 Tab PO BID Warfarin Sodium 5 Mg Tablet 1 Tab PO DAILY Furosemide 40 Mg Tablet 1 Tab PO QODAY Latuda (Lurasidone Hcl) 40 Mg Tablet 20 Mg PO QHS Singulair Tablet (Montelukast Sodium) 10 Mg Tablet 1 Tab PO DAILY Zyprexa (Olanzapine) 15 Mg Tablet 1 Tab PO QHS Fluoxetine Hcl 20 Mg Capsule 1 Cap PO DAILY Lyrica (Pregabalin) 50 Mg Capsule 1 Cap PO BID Metoprolol Tartrate 25 Mg Tablet 1 Tab PO BID Lisinopril 20 Mg Tablet 1 Tab PO DAILY Omeprazole 40 Mg Capsule.dr 1 Cap PO DAILY Klor-Con M20 (Potassium Chloride) 20 Meq Tab.er.prt 1 Tab PO BID Benztropine Mesylate 1 Mg Tablet 1 Tab PO BID Fluticasone Propionate Nasal [place] (Fluticasone Propionate) 16 Gm [place].susp 2 Sprays NS BID for seasonal allergies Vitals/I & O Vital Sign - Last 24 Hours 10/05/18 10/05/18 10/05/18 10/05/18 15:07 17:22 19:53 21:00 Temp 97.5 98.0 97.5 98.0 Pulse 60 60 60 Resp 17 18 B/P (MAP) 107/53 (71) 97/52 (67) 97/52 Pulse Ox 94 94 95 O2 Delivery Room Air Room Air Room Air 10/05/18 10/06/18 10/06/18 10/06/18 23:27 00:54 01:54 03:20 Temp 98.3 98.4 98.3 98.4 Pulse 61 59 Resp 18 18 17 16 B/P (MAP) 100/54 (69) 116/58 (77) Pulse Ox 95 94 O2 Delivery Room Air Room Air Room Air 10/06/18 10/06/18 10/06/18 10/06/18 07:00 09:54 09:55 09:56 Temp 97.9 97.9 Pulse 69 69 69 69 Resp 18 B/P (MAP) 150/50 (83) 150/50 150/50 150/50 Pulse Ox 94 O2 Delivery Room Air 10/06/18 10/06/18 10/06/18 10/06/18 10:00 10:08 10:14 13:21 Pulse 59 66 61 B/P (MAP) 122/59 (80) 121/77 (92) 131/58 (82) Pulse Ox 94 O2 Delivery Room Air Intake and Output 10/05/18 10/05/18 10/06/18 15:01 23:01 07:01 Intake Total 300 ml 740 ml 760 ml Balance 300 ml 740 ml 760 ml JUSTYNA PARKS MD Oct 06, 2018 14:19
[2018-10-06] MEDS: WARFARIN 5 MG TABLET. PO SCH (15:20)
[2018-10-06] MEDS: OLANZapine 5 MG TABLET PO SCH (21:29)
[2018-10-06] MEDS: ATORVASTATIN CALCIUM 10 MG TABLET. PO SCH (21:29)
[2018-10-06] MEDS: LURASIDONE 40 MG TABLET. PO SCH (21:30)
[2018-10-06] MEDS: QUEtiapine 100 MG TABLET. PO SCH (21:30)
[2018-10-06] MEDS: MONTELUKAST SODIUM 10 MG TABLET. PO SCH (21:30)
[2018-10-07 03:25] VITALS: BP 141/75
[2018-10-07] MEDS ORDERED: BACL10TA PO (04:17)
[2018-10-07] MEDS: LEVOTHYROXINE 25 MCG TABLET. PO SCH (05:46)
[2018-10-07 07:00] VITALS: BP 139/61
[2018-10-07] MEDS: PANTOPRAZOLE 40 MG TABLET.DR. PO SCH (07:58)
[2018-10-07] MEDS: METOCLOPRAMIDE ORAL SOLN 10 MG/10 ML SOLUTION. PO SCH (07:59)
[2018-10-07] MEDS: FLUTICASONE 50MCG/NASAL SPRAY 16GM BOTTLE. NS SCH (09:21)
[2018-10-07] MEDS: COLESTIPOL HCL 1 GM TABLET PO SCH (09:23)
[2018-10-07] MEDS: BENZTROPINE MESYLATE 1 MG TABLET. PO SCH (09:23)
[2018-10-07] MEDS: TOPIRAMATE 25 MG TABLET. PO SCH (09:23)
[2018-10-07] MEDS: POTASSIUM CHLORIDE 20 MEQ TABLET.ER. PO SCH (09:23)
[2018-10-07] MEDS: FLUoxetine HCL 20 MG CAPSULE PO SCH (09:24)
[2018-10-07] MEDS: DIVALPROEX DELAYED RELEASE 500 MG TABLET.DR. PO SCH (09:24)
[2018-10-07] MEDS: METOPROLOL TART IMMED RELEASE 25 MG TABLET. PO SCH (09:24)
[2018-10-07] MEDS: PREGABALIN 50 MG CAPSULE PO SCH (09:24)
[2018-10-07] MEDS: ISOSORBIDE MONONITRATE ER 30 MG TAB.ER.24H PO SCH (09:24)
[2018-10-07] MEDS: LISINOPRIL 20 MG TABLET PO SCH (09:25)
--- NOTE | 2018-10-07 09:50 | PDOC ---
PROGRESS NOTES Assessment Problems Medical Problems: (1) Fall at home Status: Acute Epilepsy, noncompliance, left central epileptic focus on EEG yesterday. 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 Plan Depakote. Rehabilitation modalities. Okay for discharge Follow-up with me in [address] Hudson Subjective Has abdominal pain, doing well eating breakfast I observe Objective Vital Signs Date Time Temp Pulse Resp B/P (MAP) Pulse Ox O2 Delivery O2 Flow Rate FiO2 10/07/18 09:25 60 139/61 10/07/18 07:00 98.2 18 97 Room Air 98.2 Intake and Output 10/07/18 07:01 Intake Total 1240 ml Balance 1240 ml Intake Oral 1240 ml # Voids 4 PHYSICAL EXAM Physical Exam: Alert. Oriented to time, place and person, consistent with intellectual disability. PERRL. EOMI. CN: no focal findings. Muscle tone: normal. Muscle strength: 4/5 DTR: 1+ Plantar reflex: flexor Gait: not examined Sensory exam: no abnormal findings. No cerebellar signs elicited. Review of Relevant I have reviewed the following items yonathan (where applicable) has been applied. Labs Laboratory Tests Test 10/06/18 03:35 White Blood Count 6.2 x10^3/uL (4.0-11.0) Red Blood Count 4.37 x10^6/uL (3.50-5.40) Hemoglobin 12.7 g/dL (12.0-15.5) Hematocrit 37.2 % (36.0-47.0) Mean Corpuscular Volume 85 fL (79-100) Mean Corpuscular Hemoglobin 29 pg (25-35) Mean Corpuscular Hemoglobin Concent 34 g/dL (31-37) Red Cell Distribution Width 13.8 % (11.5-14.5) Platelet Count 143 x10^3/uL (140-400) Neutrophils (%) (Auto) 62 % (31-73) Lymphocytes (%) (Auto) 30 % (24-48) Monocytes (%) (Auto) 7 % (0-9) Eosinophils (%) (Auto) 2 % (0-3) Basophils (%) (Auto) 0 % (0-3) Neutrophils # (Auto) 3.8 x10^3uL (1.8-7.7) Lymphocytes # (Auto) 1.8 x10^3/uL (1.0-4.8) Monocytes # (Auto) 0.4 x10^3/uL (0.0-1.1) Eosinophils # (Auto) 0.1 x10^3/uL (0.0-0.7) Basophils # (Auto) 0.0 x10^3/uL (0.0-0.2) Prothrombin Time 36.3 SEC (11.7-14.0) Prothromb Time International Ratio 3.6 (0.8-1.1) Sodium Level 143 mmol/L (136-145) Potassium Level 3.8 mmol/L (3.5-5.1) Chloride Level 106 mmol/L (98-107) Carbon Dioxide Level 27 mmol/L (21-32) Anion Gap 10 (6-14) Blood Urea Nitrogen 15 mg/dL (7-20) Creatinine 0.8 mg/dL (0.6-1.0) Estimated GFR (Cockcroft-Gault) 73.7 Glucose Level 102 mg/dL (70-99) Calcium Level 8.9 mg/dL (8.5-10.1) Microbiology 10/04/18 Urine Culture - Final, Complete 10/04/18 Urine Culture Result 1 (JOYCE) - Final, Complete Medications Current Medications Ondansetron HCl (Zofran) 4 mg 1X ONCE IV Last administered on 10/04/18at 13:37 ; Start 10/04/18 at 13:15; Stop 10/04/18 at 13:16; Status DC Acetaminophen/ Hydrocodone Bitart (Lortab 5/325) 1 tab 1X ONCE PO Last administered on 10/04/18at 15:00; Start 10/04/18 at 14:30; Stop 10/04/18 at 14:31 ; Status DC Atorvastatin Calcium (Lipitor) 10 mg QHS PO Last administered on 10/06/18at 21: 29; Start 10/04/18 at 21:00 Colestipol HCl (Colestid) 1 gm TID@1000,1500,2200 PO Last administered on at 09:23; Start 10/04/18 at 22:00 Fluoxetine HCl (PROzac) 20 mg DAILY PO Last administered on 10/07/18at 09:24; Start 10/05/18 at 09:00 Fluticasone Propionate (Flonase) 2 spray BID NS Last administered on 10/07/18 09:21; Start 10/04/18 at 21:00 Isosorbide Mononitrate (Imdur) 30 mg DAILY PO Last administered on 10/07/18 09 :24; Start 10/05/18 at 09:00 Lisinopril (Prinivil) 20 mg DAILY PO Last administered on 10/07/18 09:25; Start 10/05/18 at 09:00 Lurasidone HCl (Latuda) 20 mg QHS PO ; Start 10/04/18 at 21:00; Status UNV Metoprolol Tartrate (Lopressor) 25 mg BID PO Last administered on 10/07/18 09: 24; Start 10/04/18 at 21:00 Potassium Chloride (Klor-Con) 20 meq BIDWMEALS PO Last administered on 09:23; Start 10/04/18 at 18:30 Pregabalin (Lyrica) 50 mg BID PO Last administered on 10/07/18 09:24; Start at 21:00 Tramadol HCl (Ultram) 50 mg PRN Q6HRS PRN PO PAIN Last administered on 21:29; Start 10/04/18 at 18:00 Benztropine Mesylate (Cogentin) 1 mg BID PO Last administered on 10/07/18 09: 23; Start 10/04/18 at 21:00 Divalproex Sodium (Depakote) 500 mg BID PO Last administered on 10/07/18 09:24 ; Start 10/04/18 at 21:00 Levothyroxine Sodium (Synthroid) 25 mcg DAILY06 PO Last administered on 05:46; Start 10/05/18 at 06:00 Montelukast Sodium (Singulair) 10 mg QHS PO Last administered on 10/06/18 21: 30; Start 10/04/18 at 21:00 Olanzapine (ZyPREXA) 15 mg QHS PO Last administered on 10/06/18 21:29; Start 10/04/18 at 21:00 Pantoprazole Sodium (Protonix) 40 mg DAILYAC PO Last administered on 10/07/18 07:58; Start 10/05/18 at 07:30 Non-Formulary Medication (Quetiapine Fumarate (Seroquel)) 1 tab QHS PO ; Start 10/04/18 at 21:00; Status UNV Topiramate (Topamax) 25 mg BID PO Last administered on 10/07/18 09:23; Start 10/04/18 at 21:00 Warfarin Sodium (Coumadin) 5 mg DAILY16 PO Last administered on 10/05/18 17:22 ; Start 10/04/18 at 18:30 Promethazine HCl (Phenergan) 12.5 mg PRN QID PRN PO NAUSEA/VOMITING Last administered on 10/06/18 21:30; Start 10/04/18 at 18:00 Zolpidem Tartrate (Ambien) 5 mg PRN QHS PRN PO INSOMNIA; Start 10/04/18 at 18: 00 Metoclopramide HCl (Reglan Oral Solution) 5 mg TIDACHC PO Last administered on 10/05/18 12:28; Start 10/04/18 at 21:00; Stop 10/05/18 at 14:34; Status DC Warfarin Sodium (Coumadin Per Physician) 1 each PRN DAILY PRN MC SEE COMMENTS Last administered on 10/06/18 14:44; Start 10/04/18 at 18:30 Quetiapine Fumarate (SEROquel) 100 mg QHS PO Last administered on 10/06/18 21: 30; Start 10/04/18 at 21:00 Lurasidone HCl (Latuda) 20 mg QHS PO Last administered on 10/06/18 21:30; Start 10/04/18 at 21:00 Acetaminophen (Tylenol) 500 mg PRN Q6HRS PRN PO MILD PAIN / TEMP; Start at 12:00 Ondansetron HCl (Zofran) 4 mg PRN Q6HRS PRN IV NAUSEA/VOMITING; Start 10/05/18 at 12:00 Metoclopramide HCl (Reglan Oral Solution) 5 mg QIDACHS PO Last administered on 10/07/18 07:59; Start 10/05/18 at 16:30 Active Scripts Active Tramadol Hcl 50 Mg Tablet 50 Mg PO Q6HRS PRN Synthroid (Levothyroxine Sodium) 25 Mcg Tablet 25 Mcg PO DAILY07 30 Days Atorvastatin Calcium 10 Mg Tablet 10 Mg PO QHS Reported Baclofen 10 Mg Tablet 1 Tab PO TID Divalproex Sodium 500 Mg Tablet.dr 1 Tab PO BID Colestipol Hcl 1 Gm Tablet 1 Gm PO TID Seroquel (Quetiapine Fumarate) 100 Mg Tablet 1 Tab PO QHS Isosorbide Mononitrate Er (Isosorbide Mononitrate) 30 Mg Tab.er.24h 1 Tab PO DAILY Topiramate 25 Mg Tablet 1 Tab PO BID Warfarin Sodium 5 Mg Tablet 1 Tab PO DAILY Furosemide 40 Mg Tablet 1 Tab PO QODAY Latuda (Lurasidone Hcl) 40 Mg Tablet 20 Mg PO QHS Singulair Tablet (Montelukast Sodium) 10 Mg Tablet 1 Tab PO DAILY Zyprexa (Olanzapine) 15 Mg Tablet 1 Tab PO QHS Fluoxetine Hcl 20 Mg Capsule 1 Cap PO DAILY Lyrica (Pregabalin) 50 Mg Capsule 1 Cap PO BID Metoprolol Tartrate 25 Mg Tablet 1 Tab PO BID Lisinopril 20 Mg Tablet 1 Tab PO DAILY Omeprazole 40 Mg Capsule.dr 1 Cap PO DAILY Klor-Con M20 (Potassium Chloride) 20 Meq Tab.er.prt 1 Tab PO BID Benztropine Mesylate 1 Mg Tablet 1 Tab PO BID Fluticasone Propionate Nasal [place] (Fluticasone Propionate) 16 Gm [place].susp 2 Sprays NS BID for seasonal allergies Vitals/I & O Vital Sign - Last 24 Hours 10/06/18 10/06/18 10/06/18 10/06/18 09:54 09:55 09:56 10:00 Pulse 69 69 69 59 B/P (MAP) 150/50 150/50 150/50 122/59 (80) 10/06/18 10/06/18 10/06/18 10/06/18 10:08 10:14 13:21 15:00 Temp 97.7 97.7 Pulse 66 61 16 Resp 16 B/P (MAP) 121/77 (92) 131/58 (82) 99/45 (63) Pulse Ox 94 95 O2 Delivery Room Air Room Air 10/06/18 10/06/18 10/06/18 10/06/18 19:59 21:29 21:30 22:29 Temp 97.8 97.8 Pulse 58 58 Resp 16 B/P (MAP) 111/51 (71) 111/51 Pulse Ox 94 94 94 O2 Delivery Room Air Room Air Room Air 10/06/18 10/07/18 10/07/18 10/07/18 23:11 03:25 07:00 09:24 Temp 98.2 98.5 98.2 98.2 98.5 98.2 Pulse 62 60 60 60 Resp 16 16 18 B/P (MAP) 148/80 (102) 141/75 (97) 139/61 (87) 139/61 Pulse Ox 94 96 97 O2 Delivery Room Air Room Air Room Air 10/07/18 10/07/18 09:24 09:25 Pulse 60 60 B/P (MAP) 139/61 139/61 Intake and Output 10/06/18 10/06/18 10/07/18 15:01 23:01 07:01 Intake Total 340 ml 300 ml 600 ml Balance 340 ml 300 ml 600 ml JUSTYNA PARKS MD Oct 07, 2018 09:50
--- NOTE | 2018-10-07 09:53 | PDOC ---
PROGRESS NOTES Subjective Subjective feels better today Objective Objective Vital Signs Date Time Temp Pulse Resp B/P (MAP) Pulse Ox O2 Delivery O2 Flow Rate FiO2 10/07/18 09:25 60 139/61 10/07/18 07:00 98.2 18 97 Room Air 98.2 Intake and Output 10/07/18 07:01 Intake Total 1240 ml Balance 1240 ml Intake Oral 1240 ml # Voids 4 Physical Exam Abdomen: Normal bowel sounds, Soft, No hepatosplenomegaly, No masses, Other ( Epigastric tenderness) Heart: Regular rate Extremities: No clubbing, No cyanosis, No edema, Normal pulses, No tenderness/ swelling General: Alert, Oriented X3, Cooperative, No acute distress HEENT: Atraumatic, PERRLA, EOMI, Mucous membr. 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 Syncope, falls CAD: with multiple stents to RCA in 2012. Last [facility] 2014 with nonobstructive disease. MPI 10/2017 did not show any significant ischemia. No rhythm ectopies. PPM in situ: hx of SSS. ([employer]) AVR: mechanical valve. Recent 2-D echo showed normal function. Chronic coumadin therapy: INR 3.6 today HTN: controlled HLP: statin Schizophrenia/bipolar disorder: PLAN:d/c home on Deopakote 500 mg po bid spoke with Neurology. pacemaker check ok EEG showed seizures pt/ot home today int 3.6 coumadin 5 mg Plan Plan of Care Problems Medical Problems: (1) Fall at home Status: Acute Comment Review of Relevant I have reviewed the following items yonathan (where applicable) has been applied. Labs Microbiology 10/04/18 Urine Culture - Final, Complete 10/04/18 Urine Culture Result 1 (JOYCE) - Final, Complete Vitals/I & O Vital Sign - Last 24 Hours 10/06/18 10/06/18 10/06/18 10/06/18 09:54 09:55 09:56 10:00 Pulse 69 69 69 59 B/P (MAP) 150/50 150/50 150/50 122/59 (80) 10/06/18 10/06/18 10/06/18 10/06/18 10:08 10:14 13:21 15:00 Temp 97.7 97.7 Pulse 66 61 16 Resp 16 B/P (MAP) 121/77 (92) 131/58 (82) 99/45 (63) Pulse Ox 94 95 O2 Delivery Room Air Room Air 10/06/18 10/06/18 10/06/18 10/06/18 19:59 21:29 21:30 22:29 Temp 97.8 97.8 Pulse 58 58 Resp 16 B/P (MAP) 111/51 (71) 111/51 Pulse Ox 94 94 94 O2 Delivery Room Air Room Air Room Air 10/06/18 10/07/18 10/07/18 10/07/18 23:11 03:25 07:00 09:24 Temp 98.2 98.5 98.2 98.2 98.5 98.2 Pulse 62 60 60 60 Resp 16 16 18 B/P (MAP) 148/80 (102) 141/75 (97) 139/61 (87) 139/61 Pulse Ox 94 96 97 O2 Delivery Room Air Room Air Room Air 10/07/18 10/07/18 09:24 09:25 Pulse 60 60 B/P (MAP) 139/61 139/61 Intake and Output 10/06/18 10/06/18 10/07/18 15:01 23:01 07:01 Intake Total 340 ml 300 ml 600 ml Balance 340 ml 300 ml 600 ml Nutrition Consultation Dietary Evaluation: Recommendations by RD: Increase Calorie Intake, Protein supplementation Comments: ensure enlive bid Expected Outcomes/Goals: to meet > 75% est nutr needs Malnutrition Findings: Weight Status: Obese NICOLE SMITH MD Oct 07, 2018 09:53
[2018-10-07 10:38] LABS: BASO % 0 % (0-3); EOS # 0.1 x10^3/uL (0.0-0.7); EOS % 2 % (0-3); HEMATOCRIT 43.4 % (36.0-47.0); HEMOGLOBIN 14.4 g/dL (12.0-15.5); LYMPH % 28 % (24-48); MEAN CORPUSCULAR HEMOGLOBIN 29 pg (25-35); MEAN CORPUSCULAR HGB CONC 33 g/dL (31-37); MEAN CORPUSCULAR VOLUME 86 fL (79-100); MONO # 0.4 x10^3/uL (0.0-1.1); MONO % 5 % (0-9); NEUT # 4.5 x10^3uL (1.8-7.7); NEUT % 64 % (31-73); PLATELET COUNT 158 x10^3/uL (140-400); RED BLOOD COUNT 5.02 x10^6/uL (3.50-5.40); RED CELL DISTRIBUTION WIDTH 14.2 % (11.5-14.5); WHITE BLOOD COUNT 7.1 x10^3/uL (4.0-11.0)
[2018-10-07 10:49] VITALS: BP 167/78
[2018-10-07 10:51] LABS: PROTHROMBIN TIME PATIENT 31.2 SEC (11.7-14.0)
[2018-10-07 10:56] LABS: CALCIUM 9.3 mg/dL (8.5-10.1); CREATININE 0.9 mg/dL (0.6-1.0); GFR 64.3; POTASSIUM 3.7 mmol/L (3.5-5.1)
--- NOTE | 2018-10-07 11:00 | NUR ---
Discharge Note: RHETT HERNANDEZ [address] [place] [address] Discharge instructions and discharge home medications reviewed with Patient and a copy given. All questions have been answered and understanding verbalized. The following instructions and handouts were given: Diet, activity, medication list and follow up instructions provided to patient. Discontinued lines and drains: Peripheral IV discontinued and catheter intact. Patient discharged to Home or Self Care withSpousevia Wheelchair
== END 2018-10-07 11:00 | disposition home or self-care (01) | DRG 101 ==
LOC: ER 12:46 → 6 SOUTH 14:49
PROVIDERS: ADMIT Internal Medicine; ATTEND Internal Medicine
DX: G40.909 Epilepsy, unspecified, not intractable, without status epilepticus (principal); E78.5 Hyperlipidemia, unspecified; F20.9 Schizophrenia, unspecified; F31.9 Bipolar disorder, unspecified; F41.9 Anxiety disorder, unspecified; F44.9 Dissociative and conversion disorder, unspecified; F79 Unspecified intellectual disabilities; G47.419 Narcolepsy without cataplexy; I11.0 Hypertensive heart disease with heart failure; I25.10 Atherosclerotic heart disease of native coronary artery without angina pectoris; I35.0 Nonrheumatic aortic (valve) stenosis; I48.91 Unspecified atrial fibrillation; I25.2 Old myocardial infarction; I49.5 Sick sinus syndrome; I50.9 Heart failure, unspecified; J44.9 Chronic obstructive pulmonary disease, unspecified; K21.9 Gastro-esophageal reflux disease without esophagitis; K57.90 Diverticulosis of intestine, part unspecified, without perforation or abscess without bleeding; R29.6 Repeated falls; Z82.49 Family history of ischemic heart disease and other diseases of the circulatory system; Z79.01 Long term (current) use of anticoagulants; Z83.3 Family history of diabetes mellitus; Z85.3 Personal history of malignant neoplasm of breast; W18.39XA Other fall on same level, initial encounter; Z86.010 Personal history of colon polyps; G89.29 Other chronic pain; Z86.73 Personal history of transient ischemic attack (TIA), and cerebral infarction without residual deficits; Z87.891 Personal history of nicotine dependence; Z90.49 Acquired absence of other specified parts of digestive tract; Z91.19 Patient's noncompliance with other medical treatment and regimen; Z95.1 Presence of aortocoronary bypass graft; Z95.2 Presence of prosthetic heart valve; Z95.5 Presence of coronary angioplasty implant and graft; Z95.0 Presence of cardiac pacemaker; Z90.710 Acquired absence of both cervix and uterus; Z87.11 Personal history of peptic ulcer disease; Y93.89 Activity, other specified; Y92.098 Other place in other non-institutional residence as the place of occurrence of the external cause; Y99.8 Other external cause status; Z88.0 Allergy status to penicillin; Z88.2 Allergy status to sulfonamides; Z88.8 Allergy status to other drugs, medicaments and biological substances; Z91.040 Latex allergy status
CPT/HCPCS: 36415; 70450; 71045; 72125; 80048; 80053; 80164; 80307; 81001; 82550; 83605; 83735; 83880; 84484; 85025; 85610; 87086; 93005; 95816; 96374; J2405; J8597; Q0169; 97116; 99285-25

== ENCOUNTER 2018-11-10 13:27 | Inpatient (IN) | payer OTHER ==
[~2018-11-10] VITALS: Ht 160 cm; Wt 91.2 kg
[~2018-11-10 13:27] MED LIST changes: +TRAZ-118 PO; -TRAZ-85 PO
[2018-11-10] MEDS ORDERED: IV NORMAL SALINE 1000ML BAG 1,000 ML IV ONE (14:00)
[2018-11-10 14:10] LABS: BASO # 0.1 x10^3/uL (0.0-0.2); BASO % 1 % (0-3); EOS # 0.2 x10^3/uL (0.0-0.7); EOS % 2 % (0-3); HEMATOCRIT 40.2 % (36.0-47.0); HEMOGLOBIN 13.3 g/dL (12.0-15.5); LYMPH # 1.4 x10^3/uL (1.0-4.8); LYMPH % 17 % (24-48); MEAN CORPUSCULAR HEMOGLOBIN 28 pg (25-35); MEAN CORPUSCULAR HGB CONC 33 g/dL (31-37); MEAN CORPUSCULAR VOLUME 85 fL (79-100); MONO # 0.6 x10^3/uL (0.0-1.1); MONO % 7 % (0-9); NEUT % 73 % (31-73); PLATELET COUNT 183 x10^3/uL (140-400); RED BLOOD COUNT 4.73 x10^6/uL (3.50-5.40); WHITE BLOOD COUNT 8.2 x10^3/uL (4.0-11.0)
[2018-11-10 14:23] LABS: PROTHROMBIN TIME PATIENT 15.7 SEC (11.7-14.0)
[2018-11-10 14:25] LABS: CALCIUM 8.5 mg/dL (8.5-10.1); CREATININE 0.6 mg/dL (0.6-1.0); GFR 102.7; POTASSIUM 3.9 mmol/L (3.5-5.1)
--- NOTE | 2018-11-10 14:27 | RAD ---
EXAM: Chest, single view. HISTORY: Syncope. COMPARISON: 10/04/2018 FINDINGS: A frontal view of the chest is obtained. There is stable mild diffuse increased interstitial opacity suggesting trace congestion. There is stable cardiomegaly. There is evidence of prior median sternotomy and cardiac pacemaker placement. There is no pleural effusion or pneumothorax. IMPRESSION: 1. Suspected trace pulmonary congestion. 2. Cardiomegaly. Electronically signed by: Jesusita De La Paz MD (11/10/2018 2:24 PM) [place] [id number]
[2018-11-10 14:29] LABS: ALBUMIN/GLOBULIN RATIO 0.9 (1.0-1.7); MAGNESIUM 1.8 mg/dL (1.8-2.4); TOTAL BILIRUBIN 0.3 mg/dL (0.2-1.0); TOTAL PROTEIN 6.4 g/dL (6.4-8.2)
[2018-11-10] MEDS ORDERED: NITROGLYCERIN SUBLINGUAL 0.4 MG BOTTLE OF 25. SL ONE (14:31)
[2018-11-10 14:37] LABS: BILIRUBIN,URINE SMALL (NEG); CLARITY,URINE CLEAR; COLOR,URINE YELLOW; NITRITE,URINE NEGATIVE (NEG); PROTEIN,URINE NEGATIVE (NEG-TRACE)
[2018-11-10] MEDS: NITROGLYCERIN SUBLINGUAL 0.4 MG BOTTLE OF 25. SL PRN ×2 (14:39→14:50)
[2018-11-10 14:40] LABS: CREATINE KINASE 70 U/L (26-192)
[2018-11-10 14:46] LABS: BARBITURATES NEG (NEG); BENZODIAZEPINES NEG (NEG); CANNABINOIDS NEG (NEG); COCAINE NEG (NEG); METHADONE NEG (NEG); OPIATES NEG (NEG); PHENCYCLIDINE NEG (NEG)
--- NOTE | 2018-11-10 14:46 | EKG ---
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
[2018-11-10 14:51] LABS: AMPHETAMINE/METHAMPHETAMINE NEG (NEG); BACTERIA,URINE FEW /HPF (0-FEW); RBC,URINE 0 /HPF (0-2); SQUAMOUS EPITHELIAL CELL,UR OCC /LPF
--- NOTE | 2018-11-10 15:23 | RAD ---
EXAM: Head CT without contrast. HISTORY: Syncope. TECHNIQUE: Computed tomographic images of the head were obtained without contrast. COMPARISON: 10/04/2018. FINDINGS: There is no acute or subacute extra-axial or intraparenchymal hemorrhage. There is no mass effect or midline shift. There is no hydrocephalus. There are areas of decreased attenuation within the cerebral white matter, nonspecific and likely related to chronic small vessel disease. There is a small left maxillary sinus mucous retention cyst. The mastoid air cells are clear. No suspicious calvarial lesion is seen. IMPRESSION: No acute intracranial findings. Note is made that MRI is more sensitive for acute infarction. Electronically signed by: Jesusita De La Paz MD (11/10/2018 3:20 PM) [facility]
[2018-11-10] MEDS ORDERED: fentaNYL PF VIAL 100 MCG/2 ML VIAL IV ONE (17:30)
--- NOTE | 2018-11-10 18:34 | PHYS DOC ---
Past Medical History Past Medical History: A-Fib, Anxiety, Bipolar, CVA, Hypertension, ID, Schizophrenia, Other Additional Past Medical Histor: HALLUCINATIONS, AORTIC VALVE DISORDERS, mi 1996 , kidney problems Past Surgical History: Cholecystectomy, Pacemaker, Other Additional Past Surgical Histo: HERNIA REPAIR, AORTIC VALVE REPLACEMENT; with defibrilator Alcohol Use: None Drug Use: None Adult General Chief Complaint Chief Complaint: SYNCOPE HPI HPI Patient is a 58 year old female with history of hypertension, A. fib with a pacemaker, anxiety, schizophrenia, who presents to the ED today to be evaluated for syncope episodes. Apparently patient [facility], head 3 syncope episodes, was on the way to the ED, had one syncope episode, was also in the ED waiting area and had one syncope episode. All these episodes are happening when she is sitting. Patient arrives in the ED alert and oriented 3. In no distress. Patient denies any headache or dizziness. Denies any nausea vomiting. Review of Systems Review of Systems Constitutional: Denies fever or chills [] Eyes: Denies change in visual acuity, redness, or eye pain [] HENT: Denies nasal congestion or sore throat [] Respiratory: Denies cough or shortness of breath [] Cardiovascular: No additional information not addressed in HPI [] GI: Denies abdominal pain, nausea, vomiting, bloody stools or diarrhea [] : Denies dysuria or hematuria [] Musculoskeletal: Denies back pain or joint pain [] Integument: Denies rash or skin lesions [] Neurologic: Reports syncope episodes. Denies headache, focal weakness or sensory changes [] All other systems were reviewed and found to be within normal limits, except as documented in this note. Current Medications Current Medications Current Medications Medications (Trade) Dose Ordered Sig/Galilea Start Time Stop Time Status Last Admin Dose Admin Nitroglycerin (Nitrostat) 0.4 mg STK-MED ONCE 11/10/18 14:31 11/10/18 14:32 DC Sodium Chloride 1,000 ml @ 1,000 mls/hr 1X ONCE 11/10/18 14:00 11/10/18 14:59 DC 11/10/18 14:36 1,000 MLS/HR Allergies Allergies Allergies Coded Allergies Type Severity Reaction Last Updated Verified Sulfa (Sulfonamide Antibiotics) Allergy Severe rash, tongue swelling 04/15/15 Yes Iodinated Contrast- Oral and IV Dye Allergy Intermediate rash 04/15/15 Yes Penicillins Allergy Intermediate Hives 04/15/15 Yes aspirin Allergy Intermediate Hives 04/15/15 Yes codeine Allergy Intermediate Hives; SEE COMMENT 06/08/15 Yes diphenhydramine HCl Allergy Intermediate rash 12/19/13 Yes latex Allergy Intermediate Rash 12/18/13 Yes Physical Exam Physical Exam Constitutional: Well developed, well nourished, no acute distress, non-toxic appearance. [] HENT: Normocephalic, atraumatic, bilateral external ears normal, oropharynx moist, no oral exudates, nose normal. [] Eyes: PERRLA, EOMI, conjunctiva normal, no discharge. [] Neck: Normal range of motion, no tenderness, supple, no stridor. [] Cardiovascular:Heart rate regular rhythm, no murmur [] Lungs & Thorax: Bilateral breath sounds clear to auscultation [] Abdomen: Bowel sounds normal, soft, no tenderness, no masses, no pulsatile masses. [] Skin: Warm, dry, no erythema, no rash. [] Back: No tenderness, no CVA tenderness. [] Extremities: No tenderness, no cyanosis, no clubbing, ROM intact, no edema. [] Neurologic: Alert and oriented X 3, normal motor function, normal sensory function, no focal deficits noted. Cranial nerves II through XII intact Psychologic: Affect normal, judgement normal, mood normal. [] Current Patient Data Vital Signs Vital Signs Date Time Temp Pulse Resp B/P (MAP) Pulse Ox O2 Delivery O2 Flow Rate FiO2 11/10/18 14:50 64 122/69 11/10/18 13:33 97.7 16 96 Room Air 97.7 Lab Values Laboratory Tests Test 11/10/18 13:55 11/10/18 14:25 White Blood Count 8.2 x10^3/uL (4.0-11.0) Red Blood Count 4.73 x10^6/uL (3.50-5.40) Hemoglobin 13.3 g/dL (12.0-15.5) Hematocrit 40.2 % (36.0-47.0) Mean Corpuscular Volume 85 fL (79-100) Mean Corpuscular Hemoglobin 28 pg (25-35) Mean Corpuscular Hemoglobin Concent 33 g/dL (31-37) Red Cell Distribution Width 14.0 % (11.5-14.5) Platelet Count 183 x10^3/uL (140-400) Neutrophils (%) (Auto) 73 % (31-73) Lymphocytes (%) (Auto) 17 % (24-48) L Monocytes (%) (Auto) 7 % (0-9) Eosinophils (%) (Auto) 2 % (0-3) Basophils (%) (Auto) 1 % (0-3) Neutrophils # (Auto) 6.0 x10^3uL (1.8-7.7) Lymphocytes # (Auto) 1.4 x10^3/uL (1.0-4.8) Monocytes # (Auto) 0.6 x10^3/uL (0.0-1.1) Eosinophils # (Auto) 0.2 x10^3/uL (0.0-0.7) Basophils # (Auto) 0.1 x10^3/uL (0.0-0.2) Prothrombin Time 15.7 SEC (11.7-14.0) H Prothrombin Time INR 1.3 (0.8-1.1) H Sodium Level 144 mmol/L (136-145) Potassium Level 3.9 mmol/L (3.5-5.1) Chloride Level 108 mmol/L (98-107) H Carbon Dioxide Level 26 mmol/L (21-32) Anion Gap 10 (6-14) Blood Urea Nitrogen 16 mg/dL (7-20) Creatinine 0.6 mg/dL (0.6-1.0) Estimated GFR (Cockcroft-Gault) 102.7 BUN/Creatinine Ratio 27 (6-20) H Glucose Level 113 mg/dL (70-99) H Calcium Level 8.5 mg/dL (8.5-10.1) Magnesium Level 1.8 mg/dL (1.8-2.4) Total Bilirubin 0.3 mg/dL (0.2-1.0) Aspartate Amino Transferase (AST) 23 U/L (15-37) Alanine Aminotransferase (ALT) 22 U/L (14-59) Alkaline Phosphatase 82 U/L (46-116) Creatine Kinase 70 U/L (26-192) Creatine Kinase MB (Mass) 0.8 ng/mL (0.0-3.6) Creatine Kinase MB Relative Index % (0-4) Troponin I Quantitative < 0.017 ng/mL (0.000-0.055) ZE-Xhh-S-Type Natriuretic Peptide 406 pg/mL (0-124) H Total Protein 6.4 g/dL (6.4-8.2) Albumin 3.0 g/dL (3.4-5.0) L Albumin/Globulin Ratio 0.9 (1.0-1.7) L Lipase 102 U/L (73-393) Thyroid Stimulating Hormone (TSH) 1.658 uIU/mL (0.358-3.74) Ethyl Alcohol Level < 10 mg/dL (0-10) Urine Color Yellow Urine Clarity Clear Urine pH 7.0 Urine Specific [place] 1.025 Urine Protein Negative mg/dL (NEG-TRACE) Urine Glucose (UA) Negative mg/dL (NEG) Urine Ketones (Stick) 15 mg/dL (NEG) Urine Blood Negative (NEG) Urine Nitrite Negative (NEG) Urine Bilirubin Small (NEG) Urine Urobilinogen Dipstick 1.0 mg/dL (0.2 mg/dL) Urine Leukocyte Esterase Negative (NEG) Urine RBC 0 /HPF (0-2) Urine WBC 1-4 /HPF (0-4) Urine Squamous Epithelial Cells Occ /LPF Urine Bacteria Few /HPF (0-FEW) Urine Mucus Mod /LPF Urine Opiates Screen Neg (NEG) Urine Methadone Screen Neg (NEG) Urine Barbiturates Neg (NEG) Urine Phencyclidine Screen Neg (NEG) Urine Amphetamine/Methamphetamine Neg (NEG) Urine Benzodiazepines Screen Neg (NEG) Urine Cocaine Screen Neg (NEG) Urine Cannabinoids Screen Neg (NEG) Urine Ethyl Alcohol Neg (NEG) Laboratory Tests 11/10/18 13:55 Laboratory Tests 11/10/18 13:55 EKG EKG [] Radiology/Procedures Radiology/Procedures [] Course & Med Decision Making Course & Med Decision Making Pertinent Labs and Imaging studies reviewed. (See chart for details) This is a 58-year-old female patient presented to the ED today to be evaluated for multiple syncope episodes. See history of present illness. Patient is alert and oriented in no distress. Her workup in the ED is negative. Consulted with Dr. Josue who accepted patient for admission. Spoke with the hoop punch operator helper will also follow-up Augustin Disclaimer Augustin Disclaimer This electronic medical record was generated, in whole or in part, using a voice recognition dictation system. Departure Departure Impression: Primary Impression: Near syncope Disposition: 09 ADMITTED INPATIENT Condition: STABLE Referrals: RUBIO CASTELLANOS (PCP) KUNAL RILEY APRN Nov 10, 2018 18:34
[2018-11-10] MEDS ORDERED: ONDANSETRON PF 4 MG/2 ML VIAL. IV PRN (18:45)
[2018-11-10] MEDS ORDERED: MORPHINE SULFATE 2 MG/ML VIAL. IV PRN (18:45)
--- NOTE | 2018-11-10 19:00 | NUR ---
The patient, RHETT HERNANDEZ, 58 y/o, F admitted by RASHEED LAY MD, was given written information regarding hospital policies, unit procedures and contact persons. ORIENTED TO UNIT, POC, AND WILDLIFE MANAGEMENT PROFESSOR. PT HAS A PACEMAKER. PT HAS A BOOT ON RIGHT FOOT DUE TO FX TOE PER PT. SHE USES A CANE, FALL PRECAUTIONS. AND SEIZURE PRECAUTIONS. Valuables were checked and DOCUMENTED IN EMR..
[2018-11-10 20:08] VITALS: BP 147/63
--- NOTE | 2018-11-10 21:56 | PDOC1 ---
History and Physical Date of Admission Date of Admission DATE: 11/10/18 TIME: 21:56 Identification/Chief Complaint Chief Complaint SEEN IN ER ,presented to the ED today to be evaluated for syncope episodes. [facility] head [facility] syncope episodes, was on the way to the ED, had one syncope episode, was also in the ED waiting area and had one syncope episode. Patient arrives in the ED alert and oriented 3. In no distress. Patient denies any headache or dizziness. Denies any nausea vomiting. Past Medical History Past Medical History Past Medical History Cardiovascular: CAD, HTN, Hyperlipidemia, Aortic stenosis, Other Pulmonary: Asthma, COPD CENTRAL NERVOUS SYSTEM: Other GI: GERD Heme/Onc: No pertinent hx Hepatobiliary: No pertinent hx Psych: Anxiety, Bipolar, Depression, Schizophrenia, Other Musculoskeletal: Osteoarthritis Rheumatologic: No pertinent hx Infectious disease: No pertinent hx Renal/: No pertinent hx Endocrine: No pertinent hx Past Surgical History Past Surgical History: Cholecystectomy, Hysterectomy, Other Family History Family History: Diabetes father had ashd Social History , supportive ALCOHOL: none Drugs: None Cardiovascular: AFIB, CAD, CHF, HTN, AR, Hyperlipidemia, Other Pulmonary: Asthma, COPD CENTRAL NERVOUS SYSTEM: CVA, Seizure, Other GI: GERD, Peptic Ulcer disease, Other Heme/Onc: Cancer Hepatobiliary: No pertinent hx Psych: Anxiety, Bipolar, Depression Musculoskeletal: Osteoarthritis Rheumatologic: No pertinent hx Infectious disease: No pertinent hx Renal/: No pertinent hx Endocrine: No pertinent hx Past Surgical History Past Surgical History: Pacemaker, CABG, Hernia Repair, Mastectomy, Hysterectomy , Other Family History Family History: Diabetes, Heart Disease, High Cholestrol Social History Smoke: No ALCOHOL: none Drugs: None Current Medications Current Medications Current Medications Sodium Chloride 1,000 ml @ 1,000 mls/hr 1X ONCE IV Last administered on at 14:36; Start 11/10/18 at 14:00; Stop 11/10/18 at 14:59; Status DC Nitroglycerin (Nitrostat) 0.4 mg PRN Q5MIN PRN SL CHEST PAIN Last administered on 11/10/18at 14:50; Start 11/10/18 at 14:30 Nitroglycerin (Nitrostat) 0.4 mg STK-MED ONCE SL ; Start 11/10/18 at 14:31; Stop 11/10/18 at 14:32; Status DC Fentanyl Citrate (Fentanyl 2ml Vial) 50 mcg 1X ONCE IV Last administered on at 17:43; Start 11/10/18 at 17:30; Stop 11/10/18 at 17:31; Status DC Ondansetron HCl (Zofran) 4 mg PRN Q8HRS PRN IV NAUSEA/VOMITING; Start 11/10/18 at 18:45; Stop 11/11/18 at 18:44 Morphine Sulfate (Morphine Sulfate) 2 mg PRN Q2HR PRN IV PAIN; Start 11/10/18 at 18:45; Stop 11/11/18 at 18:44 Active Scripts Active Synthroid (Levothyroxine Sodium) 25 Mcg Tablet 25 Mcg PO DAILY07 30 Days Atorvastatin Calcium 10 Mg Tablet 10 Mg PO QHS Reported Baclofen 10 Mg Tablet 1 Tab PO TID Divalproex Sodium 500 Mg Tablet.dr 1 Tab PO BID Colestipol Hcl 1 Gm Tablet 1 Gm PO TID Seroquel (Quetiapine Fumarate) 100 Mg Tablet 1 Tab PO QHS Isosorbide Mononitrate Er (Isosorbide Mononitrate) 30 Mg Tab.er.24h 1 Tab PO DAILY Topiramate 25 Mg Tablet 1 Tab PO BID Warfarin Sodium 5 Mg Tablet 1 Tab PO DAILY Furosemide 40 Mg Tablet 1 Tab PO QODAY Latuda (Lurasidone Hcl) 40 Mg Tablet 20 Mg PO QHS Singulair Tablet (Montelukast Sodium) 10 Mg Tablet 1 Tab PO DAILY Zyprexa (Olanzapine) 15 Mg Tablet 1 Tab PO QHS Fluoxetine Hcl 20 Mg Capsule 1 Cap PO DAILY Lyrica (Pregabalin) 50 Mg Capsule 1 Cap PO BID Metoprolol Tartrate 25 Mg Tablet 1 Tab PO BID Lisinopril 20 Mg Tablet 1 Tab PO DAILY Omeprazole 40 Mg Capsule.dr 1 Cap PO DAILY Klor-Con M20 (Potassium Chloride) 20 Meq Tab.er.prt 1 Tab PO BID Benztropine Mesylate 1 Mg Tablet 1 Tab PO BID Fluticasone Propionate Nasal Randolph (Fluticasone Propionate) 16 Gm Randolph.susp 2 Sprays NS BID for seasonal allergies Allergies Allergies: Coded Allergies: Sulfa (Sulfonamide Antibiotics) (Verified Allergy, Severe, rash, tongue swelling, 04/15/15) Iodinated Contrast- Oral and IV Dye (Verified Allergy, Intermediate, rash , 04/15/15) Penicillins (Verified Allergy, Intermediate, Hives, 04/15/15) aspirin (Verified Allergy, Intermediate, Hives, 04/15/15) codeine (Verified Allergy, Intermediate, Hives; SEE COMMENT, 06/08/15) PT REPORTS TAKING LORTAB WITHOUT COMPLICATIONS, PER ED MD diphenhydramine HCl (Verified Allergy, Intermediate, rash, 12/19/13) latex (Verified Allergy, Intermediate, Rash, 12/18/13) ROS Review of System Review of Systems Review of Systems Constitutional: Denies fever or chills [] Eyes: Denies change in visual acuity, redness, or eye pain [] HENT: Denies nasal congestion or sore throat [] Respiratory: Denies cough or shortness of breath [] Cardiovascular: No additional information not addressed in HPI [] GI: Denies abdominal pain, nausea, vomiting, bloody stools or diarrhea [] : Denies dysuria or hematuria [] Musculoskeletal: Denies back pain or joint pain [] Integument: Denies rash or skin lesions [] Neurologic: Reports syncope episodes. Denies headache, focal weakness or sensory changes [] 14 pt systems were reviewed and found to be within normal limits, except as documented General: No: Chills, Night Sweats, Fatigue, Malaise, Appetite, Other PSYCHOLOGICAL ROS: YES: Anxiety Eyes: No Blurry vision, No Decreased vision, No Double vision, No Dry eyes, No Excessive tearing, No Eye Pain, No Itchy Eyes, No Loss of vision, No Photophobia , No Scotomata, No Uses contacts, No Uses glasses, No Other ALLERGY AND IMMUNOLOGY: No: Hives, Insect Bite Sensitivity, Itchy/Watery Eyes, Nasal Congestion, Post Nasal Drip, Seasonal Allergies, Other Hematological and Lymphatic: No: Bleeding Problems, Blood Clots, Blood Transfusions, Brusing, Night Sweats, Pallor, Swollen Lymph Nodes, Other Respiratory: No: Cough, Hemoptysis, Orthopnea, Pleuritic Pain, Shortness of breath, SOB with excertion, Sputum Changes, Stridor, Tachypnea, Wheezing, Other Gastrointestinal: No Nausea, No Vomiting, No Abdominal Pain, No Diarrhea, No Constipation, No Melena, No Hematochezia, No Other Musculoskeletal: Yes Gait Disturbance Neurological: Yes Dizziness, Yes Gait Disturbance Physical Exam Physical Exam Physical Exam Physical Exam Constitutional: Well developed, well nourished, no acute distress, non-toxic appearance. [] HENT: Normocephalic, atraumatic, bilateral external ears normal, oropharynx moist, no oral exudates, nose normal. [] Eyes: PERRLA, EOMI, conjunctiva normal, no discharge. [] Neck: Normal range of motion, no tenderness, supple, no stridor. [] Cardiovascular:Heart rate regular rhythm, gr 4/6 murmur [] Lungs & Thorax: Bilateral breath sounds clear to auscultation [] Abdomen: Bowel sounds normal, soft, no tenderness, no masses, no pulsatile masses. [] Skin: Warm, dry, no erythema, no rash. [] Back: No tenderness, no CVA tenderness. [] Extremities: No tenderness, no cyanosis, no clubbing, ROM intact, no edema. [] Neurologic: Alert and oriented X 3, normal motor function, normal sensory function, no focal deficits noted. Cranial nerves II through XII intact Psychologic: Affect normal, judgement normal, mood normal. [] General: Alert, Oriented X3, Cooperative, mild distress HEENT: Atraumatic, PERRLA, EOMI, Mucous membr. moist/pink Lungs: Clear to auscultation, Normal air movement Heart: no gallops Breasts: Not examined Abdomen: Soft Rectal Exam: not examined Neuro: Cranial nerves 3-12 NL Psych/Mental Status: Mental status NL, Mood NL Vitals Vitals Vital Signs Date Time Temp Pulse Resp B/P (MAP) Pulse Ox O2 Delivery O2 Flow Rate FiO2 11/10/18 20:08 98.2 70 18 147/63 (91) 96 Room Air 98.2 Labs Labs Laboratory Tests Test 11/10/18 13:55 11/10/18 14:25 White Blood Count 8.2 x10^3/uL (4.0-11.0) Red Blood Count 4.73 x10^6/uL (3.50-5.40) Hemoglobin 13.3 g/dL (12.0-15.5) Hematocrit 40.2 % (36.0-47.0) Mean Corpuscular Volume 85 fL (79-100) Mean Corpuscular Hemoglobin 28 pg (25-35) Mean Corpuscular Hemoglobin Concent 33 g/dL (31-37) Red Cell Distribution Width 14.0 % (11.5-14.5) Platelet Count 183 x10^3/uL (140-400) Neutrophils (%) (Auto) 73 % (31-73) Lymphocytes (%) (Auto) 17 % (24-48) Monocytes (%) (Auto) 7 % (0-9) Eosinophils (%) (Auto) 2 % (0-3) Basophils (%) (Auto) 1 % (0-3) Neutrophils # (Auto) 6.0 x10^3uL (1.8-7.7) Lymphocytes # (Auto) 1.4 x10^3/uL (1.0-4.8) Monocytes # (Auto) 0.6 x10^3/uL (0.0-1.1) Eosinophils # (Auto) 0.2 x10^3/uL (0.0-0.7) Basophils # (Auto) 0.1 x10^3/uL (0.0-0.2) Prothrombin Time 15.7 SEC (11.7-14.0) Prothromb Time International Ratio 1.3 (0.8-1.1) Sodium Level 144 mmol/L (136-145) Potassium Level 3.9 mmol/L (3.5-5.1) Chloride Level 108 mmol/L (98-107) Carbon Dioxide Level 26 mmol/L (21-32) Anion Gap 10 (6-14) Blood Urea Nitrogen 16 mg/dL (7-20) Creatinine 0.6 mg/dL (0.6-1.0) Estimated GFR (Cockcroft-Gault) 102.7 BUN/Creatinine Ratio 27 (6-20) Glucose Level 113 mg/dL (70-99) Calcium Level 8.5 mg/dL (8.5-10.1) Magnesium Level 1.8 mg/dL (1.8-2.4) Total Bilirubin 0.3 mg/dL (0.2-1.0) Aspartate Amino Transf (AST/SGOT) 23 U/L (15-37) Alanine Aminotransferase (ALT/SGPT) 22 U/L (14-59) Alkaline Phosphatase 82 U/L (46-116) Creatine Kinase 70 U/L (26-192) Creatine Kinase MB (Mass) 0.8 ng/mL (0.0-3.6) Creatine Kinase MB Relative Index % (0-4) Troponin I Quantitative < 0.017 ng/mL (0.000-0.055) PK-Xkv-[id number]-Type Natriuretic Peptide 406 pg/mL (0-124) Total Protein 6.4 g/dL (6.4-8.2) Albumin 3.0 g/dL (3.4-5.0) Albumin/Globulin Ratio 0.9 (1.0-1.7) Lipase 102 U/L (73-393) Thyroid Stimulating Hormone (TSH) 1.658 uIU/mL (0.358-3.74) Ethyl Alcohol Level < 10 mg/dL (0-10) Urine Color Yellow Urine Clarity Clear Urine pH 7.0 Urine Specific [place] 1.025 Urine Protein Negative mg/dL (NEG-TRACE) Urine Glucose (UA) Negative mg/dL (NEG) Urine Ketones (Stick) 15 mg/dL (NEG) Urine Blood Negative (NEG) Urine Nitrite Negative (NEG) Urine Bilirubin Small (NEG) Urine Urobilinogen Dipstick 1.0 mg/dL (0.2 mg/dL) Urine Leukocyte Esterase Negative (NEG) Urine RBC 0 /HPF (0-2) Urine WBC 1-4 /HPF (0-4) Urine Squamous Epithelial Cells Occ /LPF Urine Bacteria Few /HPF (0-FEW) Urine Mucus Mod /LPF Urine Opiates Screen Neg (NEG) Urine Methadone Screen Neg (NEG) Urine Barbiturates Neg (NEG) Urine Phencyclidine Screen Neg (NEG) Urine Amphetamine/Methamphetamine Neg (NEG) Urine Benzodiazepines Screen Neg (NEG) Urine Cocaine Screen Neg (NEG) Urine Cannabinoids Screen Neg (NEG) Urine Ethyl Alcohol Neg (NEG) Laboratory Tests Test 11/10/18 13:55 11/10/18 14:25 White Blood Count 8.2 x10^3/uL (4.0-11.0) Red Blood Count 4.73 x10^6/uL (3.50-5.40) Hemoglobin 13.3 g/dL (12.0-15.5) Hematocrit 40.2 % (36.0-47.0) Mean Corpuscular Volume 85 fL (79-100) Mean Corpuscular Hemoglobin 28 pg (25-35) Mean Corpuscular Hemoglobin Concent 33 g/dL (31-37) Red Cell Distribution Width 14.0 % (11.5-14.5) Platelet Count 183 x10^3/uL (140-400) Neutrophils (%) (Auto) 73 % (31-73) Lymphocytes (%) (Auto) 17 % (24-48) Monocytes (%) (Auto) 7 % (0-9) Eosinophils (%) (Auto) 2 % (0-3) Basophils (%) (Auto) 1 % (0-3) Neutrophils # (Auto) 6.0 x10^3uL (1.8-7.7) Lymphocytes # (Auto) 1.4 x10^3/uL (1.0-4.8) Monocytes # (Auto) 0.6 x10^3/uL (0.0-1.1) Eosinophils # (Auto) 0.2 x10^3/uL (0.0-0.7) Basophils # (Auto) 0.1 x10^3/uL (0.0-0.2) Prothrombin Time 15.7 SEC (11.7-14.0) Prothromb Time International Ratio 1.3 (0.8-1.1) Sodium Level 144 mmol/L (136-145) Potassium Level 3.9 mmol/L (3.5-5.1) Chloride Level 108 mmol/L (98-107) Carbon Dioxide Level 26 mmol/L (21-32) Anion Gap 10 (6-14) Blood Urea Nitrogen 16 mg/dL (7-20) Creatinine 0.6 mg/dL (0.6-1.0) Estimated GFR (Cockcroft-Gault) 102.7 BUN/Creatinine Ratio 27 (6-20) Glucose Level 113 mg/dL (70-99) Calcium Level 8.5 mg/dL (8.5-10.1) Magnesium Level 1.8 mg/dL (1.8-2.4) Total Bilirubin 0.3 mg/dL (0.2-1.0) Aspartate Amino Transf (AST/SGOT) 23 U/L (15-37) Alanine Aminotransferase (ALT/SGPT) 22 U/L (14-59) Alkaline Phosphatase 82 U/L (46-116) Creatine Kinase 70 U/L (26-192) Creatine Kinase MB (Mass) 0.8 ng/mL (0.0-3.6) Creatine Kinase MB Relative Index % (0-4) Troponin I Quantitative < 0.017 ng/mL (0.000-0.055) UH-Ryv-F-Type Natriuretic Peptide 406 pg/mL (0-124) Total Protein 6.4 g/dL (6.4-8.2) Albumin 3.0 g/dL (3.4-5.0) Albumin/Globulin Ratio 0.9 (1.0-1.7) Lipase 102 U/L (73-393) Thyroid Stimulating Hormone (TSH) 1.658 uIU/mL (0.358-3.74) Ethyl Alcohol Level < 10 mg/dL (0-10) Urine Color Yellow Urine Clarity Clear Urine pH 7.0 Urine Specific [place] 1.025 Urine Protein Negative mg/dL (NEG-TRACE) Urine Glucose (UA) Negative mg/dL (NEG) Urine Ketones (Stick) 15 mg/dL (NEG) Urine Blood Negative (NEG) Urine Nitrite Negative (NEG) Urine Bilirubin Small (NEG) Urine Urobilinogen Dipstick 1.0 mg/dL (0.2 mg/dL) Urine Leukocyte Esterase Negative (NEG) Urine RBC 0 /HPF (0-2) Urine WBC 1-4 /HPF (0-4) Urine Squamous Epithelial Cells Occ /LPF Urine Bacteria Few /HPF (0-FEW) Urine Mucus Mod /LPF Urine Opiates Screen Neg (NEG) Urine Methadone Screen Neg (NEG) Urine Barbiturates Neg (NEG) Urine Phencyclidine Screen Neg (NEG) Urine Amphetamine/Methamphetamine Neg (NEG) Urine Benzodiazepines Screen Neg (NEG) Urine Cocaine Screen Neg (NEG) Urine Cannabinoids Screen Neg (NEG) Urine Ethyl Alcohol Neg (NEG) Images Images APPROVED REPORT EXAM: Two-dimensional and M-mode echocardiogram with Doppler and color Doppler. INDICATION Aortic Valve Disease Surgery/Intervention Status/Post Aortic Valve Replacement: Mechanical Pacemaker: 2D DIMENSIONS Left Atrium(2D) 3.4 (1.6-4.0cm) IVSd 1.0 (0.7-1.1cm) Aortic Root(2D) 3.4 (2.0-3.7cm) LVDd 4.8 (3.9-5.9cm) PWd 1.2 (0.7-1.1cm) LVDs 2.7 (2.5-4.0cm) FS (%) 44.8 % SV 83.2 ml Aortic Valve AoV Peak Garcia. 308.9cm/s AoV VTI 67.3cm AO Peak GR. 38.2mmHg LVOT VTI 20.08cm AO Mean GR. 21mmHg Mitral Valve MV E Velocity 70.6cm/s MV DECEL TIME 198ms MV A Velocity 59.9cm/s E/A Ratio 1.2 LEFT VENTRICLE Technically difficult study. The left ventricle is normal size. There is borderline concentric left ventricular hypertrophy. The left ventricular systolic function is normal and the ejection fraction is within normal range. The Ejection Fraction is estimated at 50%. RIGHT VENTRICLE The right ventricle is normal size. There is normal right ventricular wall thickness. There is a device lead in the right ventricle. ATRIA The left atrium is borderline dilated. The right atrium size is normal. The interatrial septum is intact with no evidence for an atrial septal defect or patent foramen ovale as noted on 2-D or Doppler imaging. AORTIC VALVE Doppler and Color Flow revealed trace aortic regurgitation. Calculated aortic valve area is 1.4 cm2 with maximum pressure gradient of 38 mmHg and mean pressure gradient of 22 mmHg. There is a mechanical aortic valve prosthesis. The prosthetic aortic valve appears normal. MITRAL VALVE The mitral valve is normal in structure and function. There is no evidence of mitral valve prolapse. There is no mitral valve stenosis. Doppler and Color- flow revealed trace to mild mitral regurgitation. TRICUSPID VALVE The tricuspid valve is not well visualized. Doppler and Color Flow revealed trace to mild tricuspid regurgitation. There is no tricuspid valve stenosis. PULMONIC VALVE The pulmonic valve is not well visualized. Doppler and Color Flow revealed mild to moderate pulmonic valvular regurgitation. GREAT VESSELS The aortic root is normal in size. The IVC was not visualized. PERICARDIAL EFFUSION There is no evidence of significant pericardial effusion. Critical Notification Critical Value: No <Conclusion> Technically difficult study. The left ventricle is normal size. The left ventricular systolic function is normal and the ejection fraction is within normal range. The Ejection Fraction is estimated at 50%. There is borderline concentric left ventricular hypertrophy. There is a mechanical aortic valve prosthesis. The prosthetic aortic valve appears normal. Calculated aortic valve area is 1.4 cm2 with maximum pressure gradient of 38 mmHg and mean pressure gradient of 22 mmHg. Doppler and Color-flow revealed trace to mild mitral regurgitation. Doppler and Color Flow revealed trace to mild tricuspid regurgitation. 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 Noncompliant with seizure medications. Mechanical aortic valve replacement, on Coumadin. subtherapeutic Bipolar.disorder plan admit neurology consult tele/ cvc inr neurochecks q 4 hrs adjust coumadin RASHEED LAY MD Nov 10, 2018 21:56
[2018-11-10 22:22] VITALS: BP 141/68
[2018-11-10] MEDS ORDERED: HYDR-3164 PO (22:28)
[2018-11-10] MEDS ORDERED: WARFARIN 5 MG TABLET. PO ONE (23:00)
[2018-11-10] MEDS: MONTELUKAST SODIUM 10 MG TABLET. PO SCH (23:12)
[2018-11-10] MEDS: BACLOFEN 10 MG TABLET. PO SCH (23:12)
[2018-11-10] MEDS: PREGABALIN 50 MG CAPSULE PO SCH (23:13)
[2018-11-10] MEDS: ATORVASTATIN CALCIUM 10 MG TABLET. PO SCH (23:13)
[2018-11-10] MEDS: BENZTROPINE MESYLATE 1 MG TABLET. PO SCH (23:13)
[2018-11-10] MEDS: QUEtiapine 100 MG TABLET. PO SCH (23:14)
[2018-11-10] MEDS: DIVALPROEX DELAYED RELEASE 500 MG TABLET.DR. PO SCH (23:14)
[2018-11-10] MEDS: POTASSIUM CHLORIDE 20 MEQ TABLET.ER. PO SCH (23:15)
[2018-11-10] MEDS: METOPROLOL TART IMMED RELEASE 25 MG TABLET. PO SCH (23:15)
[2018-11-10] MEDS: OLANZapine 5 MG TABLET PO SCH (23:19)
--- NOTE | 2018-11-11 00:08 | NUR ---
ATTEMPTED TO PLACE IV IN PTX 3 STICKS.. LEFT HAND INFILTRATED. RN RANDI ICU ATTEMPTED 3 TIMES. NO SUCCESS. NSG SUP. LAKSHMI CALLED. LCRN
[2018-11-11 02:53] VITALS: BP 108/54
[2018-11-11 04:03] LABS: BASO % 1 % (0-3); EOS # 0.2 x10^3/uL (0.0-0.7); EOS % 3 % (0-3); HEMATOCRIT 36.5 % (36.0-47.0); HEMOGLOBIN 12.1 g/dL (12.0-15.5); LYMPH # 2.1 x10^3/uL (1.0-4.8); LYMPH % 34 % (24-48); MEAN CORPUSCULAR HEMOGLOBIN 28 pg (25-35); MEAN CORPUSCULAR HGB CONC 33 g/dL (31-37); MEAN CORPUSCULAR VOLUME 86 fL (79-100); MONO # 0.5 x10^3/uL (0.0-1.1); MONO % 8 % (0-9); NEUT # 3.4 x10^3uL (1.8-7.7); NEUT % 55 % (31-73); PLATELET COUNT 158 x10^3/uL (140-400); RED BLOOD COUNT 4.26 x10^6/uL (3.50-5.40); RED CELL DISTRIBUTION WIDTH 14.4 % (11.5-14.5); WHITE BLOOD COUNT 6.2 x10^3/uL (4.0-11.0)
[2018-11-11] MEDS ORDERED: LEVOTHYROXINE 25 MCG TABLET. PO SCH (06:00)
--- NOTE | 2018-11-11 06:52 | NUR ---
having to sternal rub pt to wake up. cant stay awake. holding synthroid until more awake, would speak and answer questions then back to deep sleep. lcrn
[2018-11-11 07:00] VITALS: BP 120/72
[2018-11-11] MEDS ORDERED: COLESTIPOL HCL 1 GM TABLET PO SCH (07:30)
[2018-11-11 07:35] LABS: CALCIUM 8.5 mg/dL (8.5-10.1); CREATININE 0.5 mg/dL (0.6-1.0); GFR 126.7; POTASSIUM 3.6 mmol/L (3.5-5.1)
[2018-11-11] MEDS ORDERED: NON FORMULARY ITEM (Warfarin Sodium 1 TAB) PO SCH (09:00)
--- NOTE | 2018-11-11 10:08 | PDOC2 ---
CARDIAC CONSULT DATE OF CONSULT Date of Consult DATE: 11/11/18 TIME: 09:55 REASON FOR CONSULT Reason for Consult: Syncope REFERRING PHYSICIAN Referring Physician: Floridalma SOURCE Source: Chart review, Patient HISTORY OF PRESENT ILLNESS HISTORY OF PRESENT ILLNESS This is a pleasant 58 yo female admitted for complains of passing out. Eli was sitting by her in the casino playing trey slots when suddenly she was drifting in and out for few seconds with eyes closing and opening. This is the same as when she had seizures in the past that did involve convulsion. No incontinence episodes. She did again for few seconds after then on the 3rd time she just tipped toward the slot machine but no fall and was not responding to her . She did this again heading home in the car. Denies any palpitations, chest pain, SOA. She is compliant with her medications as her spouse prepares her meds for her. She has been taking colestid accdg to her med list tid. She did not known that this binds with her other medications. PAST MEDICAL HISTORY Past Medical History Cardiovascular: CAD, HTN, Hyperlipidemia, Syncope Pulmonary: Asthma, COPD Neuro: seizures, cognitive delay GI: GERD, GI bleed, colitis, gastroparesis Heme/Onc: No pertinent hx Psych: Anxiety, Bipolar, Depression, Schizophrenia, Other (narcolepsy) Musculoskeletal: Osteoarthritis, lower back injury Infectious disease: No pertinent hx ENT: No pertinent hx Renal/: No pertinent hx Endocrine: No pertinent hx Dermatology: No pertinent hx PAST SURGICAL HISTORY Past Surgical History Cholecystectomy, Hysterectomy, Other (mechanical aortic valve), PPM, Multiple PCIs with stents FAMILY HISTORY Family History: Diabetes SOCIAL HISTORY Smoke: No ALCOHOL: none Drugs: None CURRENT MEDICATIONS CURRENT MEDICATIONS Current Medications Medications (Trade) Dose Ordered Sig/Galilea Route PRN Reason Start Time Stop Time Status Last Admin Dose Admin Sodium Chloride 1,000 ml @ 1,000 mls/hr 1X ONCE IV 11/10/18 14:00 11/10/18 14:59 DC 11/10/18 14:36 Nitroglycerin (Nitrostat) 0.4 mg PRN Q5MIN PRN SL CHEST PAIN 11/10/18 14:30 11/10/18 14:50 Fentanyl Citrate (Fentanyl 2ml Vial) 50 mcg 1X ONCE IV 11/10/18 17:30 11/10/18 17:31 DC 11/10/18 17:43 Morphine Sulfate (Morphine Sulfate) 2 mg PRN Q2HR PRN IV PAIN 11/10/18 18:45 11/11/18 18:44 11/10/18 23:16 Atorvastatin Calcium (Lipitor) 10 mg QHS PO 11/10/18 23:00 11/10/18 23:13 Baclofen (Lioresal) 10 mg TID PO 11/10/18 23:00 11/10/18 23:12 Metoprolol Tartrate (Lopressor) 25 mg BID PO 11/10/18 23:00 11/10/18 23:15 Potassium Chloride (Klor-Con) 20 meq BID PO 11/10/18 23:00 11/10/18 23:15 Pregabalin (Lyrica) 50 mg BID PO 11/10/18 23:00 11/10/18 23:13 Benztropine Mesylate (Cogentin) 1 mg BID PO 11/10/18 23:00 11/10/18 23:13 Divalproex Sodium (Depakote) 500 mg BID PO 11/10/18 23:00 11/10/18 23:14 Levothyroxine Sodium (Synthroid) 25 mcg DAILY06 PO 11/11/18 06:00 11/11/18 06:47 Montelukast Sodium (Singulair) 10 mg QHS PO 11/10/18 23:00 11/10/18 23:12 Olanzapine (ZyPREXA) 15 mg QHS PO 11/10/18 23:00 11/10/18 23:19 Quetiapine Fumarate (SEROquel) 100 mg QHS PO 11/10/18 23:00 11/10/18 23:14 Warfarin Sodium (Coumadin Per Physician) 1 each PRN DAILY PRN MC SEE COMMENTS 11/10/18 23:00 11/11/18 09:00 Warfarin Sodium (Coumadin) 5 mg 1X WARF ONCE PO 11/10/18 23:00 11/10/18 23:01 DC 11/10/18 23:13 ALLERGIES ALLERGIES: Coded Allergies: Sulfa (Sulfonamide Antibiotics) (Verified Allergy, Severe, rash, tongue swelling, 04/15/15) Iodinated Contrast- Oral and IV Dye (Verified Allergy, Intermediate, rash , 04/15/15) Penicillins (Verified Allergy, Intermediate, Hives, 04/15/15) aspirin (Verified Allergy, Intermediate, Hives, 04/15/15) codeine (Verified Allergy, Intermediate, Hives; SEE COMMENT, 06/08/15) PT REPORTS TAKING LORTAB WITHOUT COMPLICATIONS, PER ED MD diphenhydramine HCl (Verified Allergy, Intermediate, rash, 12/19/13) latex (Verified Allergy, Intermediate, Rash, 12/18/13) ROS Review of System 14 point ROS evaluated with pertinent positives noted per HPI PHYSICAL EXAM General: Alert, Oriented X3, Cooperative, No acute distress HEENT: Atraumatic, Mucous membr. moist/pink Lungs: Clear to auscultation, Normal air movement Heart: Regular rate (SR with intermittent PVCs. ), Normal S1, Normal S2, Other (ehjection click with 3/6 systolic murmur to DEXTER border) Abdomen: Soft, No tenderness Extremities: No cyanosis, No edema Skin: No breakdown, No significant lesion Neuro: Normal speech, Sensation intact Psych/Mental Status: Mental status NL, Mood NL MUSCULOSKELETAL: Osteoarthritic changes both hands VITALS VITALS Vital Signs Date Time Temp Pulse Resp B/P (MAP) Pulse Ox O2 Delivery O2 Flow Rate FiO2 11/11/18 07:30 Room Air 11/11/18 07:00 96.7 62 18 120/72 (88) 96 96.7 LABS Lab: Laboratory Tests Test 11/10/18 13:55 11/10/18 14:25 11/11/18 03:30 11/11/18 06:35 White Blood Count 8.2 x10^3/uL (4.0-11.0) 6.2 x10^3/uL (4.0-11.0) Red Blood Count 4.73 x10^6/uL (3.50-5.40) 4.26 x10^6/uL (3.50-5.40) Hemoglobin 13.3 g/dL (12.0-15.5) 12.1 g/dL (12.0-15.5) Hematocrit 40.2 % (36.0-47.0) 36.5 % (36.0-47.0) Mean Corpuscular Volume 85 fL (79-100) 86 fL (79-100) Mean Corpuscular Hemoglobin 28 pg (25-35) 28 pg (25-35) Mean Corpuscular Hemoglobin Concent 33 g/dL (31-37) 33 g/dL (31-37) Red Cell Distribution Width 14.0 % (11.5-14.5) 14.4 % (11.5-14.5) Platelet Count 183 x10^3/uL (140-400) 158 x10^3/uL (140-400) Neutrophils (%) (Auto) 73 % (31-73) 55 % (31-73) Lymphocytes (%) (Auto) 17 % (24-48) 34 % (24-48) Monocytes (%) (Auto) 7 % (0-9) 8 % (0-9) Eosinophils (%) (Auto) 2 % (0-3) 3 % (0-3) Basophils (%) (Auto) 1 % (0-3) 1 % (0-3) Neutrophils # (Auto) 6.0 x10^3uL (1.8-7.7) 3.4 x10^3uL (1.8-7.7) Lymphocytes # (Auto) 1.4 x10^3/uL (1.0-4.8) 2.1 x10^3/uL (1.0-4.8) Monocytes # (Auto) 0.6 x10^3/uL (0.0-1.1) 0.5 x10^3/uL (0.0-1.1) Eosinophils # (Auto) 0.2 x10^3/uL (0.0-0.7) 0.2 x10^3/uL (0.0-0.7) Basophils # (Auto) 0.1 x10^3/uL (0.0-0.2) 0.0 x10^3/uL (0.0-0.2) Prothrombin Time 15.7 SEC (11.7-14.0) Prothromb Time International Ratio 1.3 (0.8-1.1) Sodium Level 144 mmol/L (136-145) 145 mmol/L (136-145) Potassium Level 3.9 mmol/L (3.5-5.1) 3.6 mmol/L (3.5-5.1) Chloride Level 108 mmol/L (98-107) 111 mmol/L (98-107) Carbon Dioxide Level 26 mmol/L (21-32) 25 mmol/L (21-32) Anion Gap 10 (6-14) 9 (6-14) Blood Urea Nitrogen 16 mg/dL (7-20) 14 mg/dL (7-20) Creatinine 0.6 mg/dL (0.6-1.0) 0.5 mg/dL (0.6-1.0) Estimated GFR (Cockcroft-Gault) 102.7 126.7 BUN/Creatinine Ratio 27 (6-20) Glucose Level 113 mg/dL (70-99) 94 mg/dL (70-99) Calcium Level 8.5 mg/dL (8.5-10.1) 8.5 mg/dL (8.5-10.1) Magnesium Level 1.8 mg/dL (1.8-2.4) Total Bilirubin 0.3 mg/dL (0.2-1.0) Aspartate Amino Transf (AST/SGOT) 23 U/L (15-37) Alanine Aminotransferase (ALT/SGPT) 22 U/L (14-59) Alkaline Phosphatase 82 U/L (46-116) Creatine Kinase 70 U/L (26-192) Creatine Kinase MB (Mass) 0.8 ng/mL (0.0-3.6) Creatine Kinase MB Relative Index % (0-4) Troponin I Quantitative < 0.017 ng/mL (0.000-0.055) [id number]-Ltk-X-Type Natriuretic Peptide 406 pg/mL (0-124) Total Protein 6.4 g/dL (6.4-8.2) Albumin 3.0 g/dL (3.4-5.0) Albumin/Globulin Ratio 0.9 (1.0-1.7) Lipase 102 U/L (73-393) Thyroid Stimulating Hormone (TSH) 1.658 uIU/mL (0.358-3.74) Ethyl Alcohol Level < 10 mg/dL (0-10) Urine Color Yellow Urine Clarity Clear Urine pH 7.0 Urine Specific [place] 1.025 Urine Protein Negative mg/dL (NEG-TRACE) Urine Glucose (UA) Negative mg/dL (NEG) Urine Ketones (Stick) 15 mg/dL (NEG) Urine Blood Negative (NEG) Urine Nitrite Negative (NEG) Urine Bilirubin Small (NEG) Urine Urobilinogen Dipstick 1.0 mg/dL (0.2 mg/dL) Urine Leukocyte Esterase Negative (NEG) Urine RBC 0 /HPF (0-2) Urine WBC 1-4 /HPF (0-4) Urine Squamous Epithelial Cells Occ /LPF Urine Bacteria Few /HPF (0-FEW) Urine Mucus Mod /LPF Urine Opiates Screen Neg (NEG) Urine Methadone Screen Neg (NEG) Urine Barbiturates Neg (NEG) Urine Phencyclidine Screen Neg (NEG) Urine Amphetamine/Methamphetamine Neg (NEG) Urine Benzodiazepines Screen Neg (NEG) Urine Cocaine Screen Neg (NEG) Urine Cannabinoids Screen Neg (NEG) Urine Ethyl Alcohol Neg (NEG) ECHOCARDIOGRAM ECHOCARDIOGRAM <Conclusion> Technically difficult study. The left ventricle is normal size. The left ventricular systolic function is normal and the ejection fraction is within normal range. The Ejection Fraction is estimated at 50%. There is borderline concentric left ventricular hypertrophy. There is a mechanical aortic valve prosthesis. The prosthetic aortic valve appears normal. Calculated aortic valve area is 1.4 cm2 with maximum pressure gradient of 38 mmHg and mean pressure gradient of 22 mmHg. Doppler and Color-flow revealed trace to mild mitral regurgitation. Doppler and Color Flow revealed trace to mild tricuspid regurgitation. DATE: 09/01/18 1801 STRESS TEST STRESS TEST Conclusion 1. No EKG evidence of stressed induced ischemia. 2. Nuclear imaging shows no reversible ischemia or infarct. 3. Normal left ventricular systolic function with an ejection fraction of greater than 70%. 4. Low risk Lexiscan nuclear stress test. DATE: 10/26/17 1245 HEART CATH HEART CATH FINDINGS 1. The left main coronary artery arose from the left sinus of Valsalva, gave rise to the left anterior descending and left circumflex arteries and did not show any significant stenosis. 2. The left anterior descending artery showed 30% stenosis in the midsegment. 3. The left circumflex artery did not show any significant stenosis. 4. The right coronary artery was a large and dominant vessel arising from the right sinus of Valsalva that did not show any significant stenosis. The previously placed stent is patent. Conclusion No significant coronary artery disease. Recommendations Medical management DATE: 07/16/15 0919 ASSESSMENT/PLAN ASSESSMENT/PLAN 1. Syncope: possible seizure. 2. Hx of seizure: last episode possibly in 10/04/2018 to which she was admitted with syncope, no arrhythmias noted at that time per PPM. 2. CAD: Multiple past stents, clinically stable 3. PPM in situ: hx of SSS. ([employer]). Interrogation revealed no significant arrhythmias. 5. AVR: mechanical valve. Recent 2-D echo showed normal function. 6. Chronic coumadin therapy: INR 1.3 7. HTN: controlled 8. HLP: statin 9. Schizophrenia/bipolar disorder 10. Hx of noncompliance 11. Allergy to IV dye 12. Arrhythmia: frequent PVCs Recommendations 1. Check orthostatic readings. 2. Continue with secondary prevention measures 3. INR at 1.3, continue coumadin and will bridge with lovenox. 4. Will need to reschedule or DC colestipol if no significant purpose as this could be the reason her INR is 1.3 due to med binding. Defer to PCP CLEVELAND LUNDBERG APRN Nov 11, 2018 10:08
[2018-11-11] MEDS ORDERED: traMADol 50 MG TABLET PO PRN (10:15)
--- NOTE | 2018-11-11 10:21 | PDOC ---
PROGRESS NOTES Subjective Subjective no dizziness today Objective Objective Vital Signs Date Time Temp Pulse Resp B/P (MAP) Pulse Ox O2 Delivery O2 Flow Rate FiO2 11/11/18 07:30 Room Air 11/11/18 07:00 96.7 62 18 120/72 (88) 96 96.7 Intake and Output 11/11/18 07:00 Intake Total 1100 ml Output Total 500 ml Balance 600 ml Intake Oral 100 ml IV Total 1000 ml Output Urine Total 500 ml Physical Exam Abdomen: Soft General: Alert, Oriented X3, Cooperative, mild distress HEENT: Atraumatic, PERRLA, EOMI, Mucous membr. 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 Noncompliant with seizure medications. Mechanical aortic valve replacement, on Coumadin. subtherapeutic Bipolar.disorder Plan:pt admitted to hospitalist service last night ,transferred to my service today give Lovenox 100 sq bid bridging, inr 1.3 low. pt/ot/rehab neuro consult cardiology consult tele/ cvc inr 1.3 low neuro checks q 4 hrs adjust Coumadin dose Comment Review of Relevant I have reviewed the following items yonathan (where applicable) has been applied. Labs Laboratory Tests Test 11/10/18 13:55 11/10/18 14:25 11/11/18 03:30 11/11/18 06:35 White Blood Count 8.2 x10^3/uL (4.0-11.0) 6.2 x10^3/uL (4.0-11.0) Red Blood Count 4.73 x10^6/uL (3.50-5.40) 4.26 x10^6/uL (3.50-5.40) Hemoglobin 13.3 g/dL (12.0-15.5) 12.1 g/dL (12.0-15.5) Hematocrit 40.2 % (36.0-47.0) 36.5 % (36.0-47.0) Mean Corpuscular Volume 85 fL (79-100) 86 fL (79-100) Mean Corpuscular Hemoglobin 28 pg (25-35) 28 pg (25-35) Mean Corpuscular Hemoglobin Concent 33 g/dL (31-37) 33 g/dL (31-37) Red Cell Distribution Width 14.0 % (11.5-14.5) 14.4 % (11.5-14.5) Platelet Count 183 x10^3/uL (140-400) 158 x10^3/uL (140-400) Neutrophils (%) (Auto) 73 % (31-73) 55 % (31-73) Lymphocytes (%) (Auto) 17 % (24-48) 34 % (24-48) Monocytes (%) (Auto) 7 % (0-9) 8 % (0-9) Eosinophils (%) (Auto) 2 % (0-3) 3 % (0-3) Basophils (%) (Auto) 1 % (0-3) 1 % (0-3) Neutrophils # (Auto) 6.0 x10^3uL (1.8-7.7) 3.4 x10^3uL (1.8-7.7) Lymphocytes # (Auto) 1.4 x10^3/uL (1.0-4.8) 2.1 x10^3/uL (1.0-4.8) Monocytes # (Auto) 0.6 x10^3/uL (0.0-1.1) 0.5 x10^3/uL (0.0-1.1) Eosinophils # (Auto) 0.2 x10^3/uL (0.0-0.7) 0.2 x10^3/uL (0.0-0.7) Basophils # (Auto) 0.1 x10^3/uL (0.0-0.2) 0.0 x10^3/uL (0.0-0.2) Prothrombin Time 15.7 SEC (11.7-14.0) Prothromb Time International Ratio 1.3 (0.8-1.1) Sodium Level 144 mmol/L (136-145) 145 mmol/L (136-145) Potassium Level 3.9 mmol/L (3.5-5.1) 3.6 mmol/L (3.5-5.1) Chloride Level 108 mmol/L (98-107) 111 mmol/L (98-107) Carbon Dioxide Level 26 mmol/L (21-32) 25 mmol/L (21-32) Anion Gap 10 (6-14) 9 (6-14) Blood Urea Nitrogen 16 mg/dL (7-20) 14 mg/dL (7-20) Creatinine 0.6 mg/dL (0.6-1.0) 0.5 mg/dL (0.6-1.0) Estimated GFR (Cockcroft-Gault) 102.7 126.7 BUN/Creatinine Ratio 27 (6-20) Glucose Level 113 mg/dL (70-99) 94 mg/dL (70-99) Calcium Level 8.5 mg/dL (8.5-10.1) 8.5 mg/dL (8.5-10.1) Magnesium Level 1.8 mg/dL (1.8-2.4) Total Bilirubin 0.3 mg/dL (0.2-1.0) Aspartate Amino Transf (AST/SGOT) 23 U/L (15-37) Alanine Aminotransferase (ALT/SGPT) 22 U/L (14-59) Alkaline Phosphatase 82 U/L (46-116) Creatine Kinase 70 U/L (26-192) Creatine Kinase MB (Mass) 0.8 ng/mL (0.0-3.6) Creatine Kinase MB Relative Index % (0-4) Troponin I Quantitative < 0.017 ng/mL (0.000-0.055) SU-Pfv-T-Type Natriuretic Peptide 406 pg/mL (0-124) Total Protein 6.4 g/dL (6.4-8.2) Albumin 3.0 g/dL (3.4-5.0) Albumin/Globulin Ratio 0.9 (1.0-1.7) Lipase 102 U/L (73-393) Thyroid Stimulating Hormone (TSH) 1.658 uIU/mL (0.358-3.74) Ethyl Alcohol Level < 10 mg/dL (0-10) Urine Color Yellow Urine Clarity Clear Urine pH 7.0 Urine Specific [place] 1.025 Urine Protein Negative mg/dL (NEG-TRACE) Urine Glucose (UA) Negative mg/dL (NEG) Urine Ketones (Stick) 15 mg/dL (NEG) Urine Blood Negative (NEG) Urine Nitrite Negative (NEG) Urine Bilirubin Small (NEG) Urine Urobilinogen Dipstick 1.0 mg/dL (0.2 mg/dL) Urine Leukocyte Esterase Negative (NEG) Urine RBC 0 /HPF (0-2) Urine WBC 1-4 /HPF (0-4) Urine Squamous Epithelial Cells Occ /LPF Urine Bacteria Few /HPF (0-FEW) Urine Mucus Mod /LPF Urine Opiates Screen Neg (NEG) Urine Methadone Screen Neg (NEG) Urine Barbiturates Neg (NEG) Urine Phencyclidine Screen Neg (NEG) Urine Amphetamine/Methamphetamine Neg (NEG) Urine Benzodiazepines Screen Neg (NEG) Urine Cocaine Screen Neg (NEG) Urine Cannabinoids Screen Neg (NEG) Urine Ethyl Alcohol Neg (NEG) Medications Current Medications Atorvastatin Calcium (Lipitor) 10 mg QHS PO Last administered on 11/10/18at 23: 13; Start 11/10/18 at 23:00 Baclofen (Lioresal) 10 mg TID PO Last administered on 11/10/18at 23:12; Start at 23:00 Benztropine Mesylate (Cogentin) 1 mg BID PO Last administered on 11/10/18at 23: 13; Start 11/10/18 at 23:00 Colestipol HCl (Colestid) 1 gm TIDAC PO ; Start 11/11/18 at 07:30 Divalproex Sodium (Depakote) 500 mg BID PO Last administered on 11/10/18at 23:14 ; Start 11/10/18 at 23:00 Fentanyl Citrate (Fentanyl 2ml Vial) 50 mcg 1X ONCE IV Last administered on at 17:43; Start 11/10/18 at 17:30; Stop 11/10/18 at 17:31; Status DC Fluoxetine HCl (PROzac) 20 mg DAILY PO ; Start 11/11/18 at 09:00 Fluticasone Propionate (Flonase) 2 spray BID NS ; Start 11/11/18 at 09:00 Furosemide (Lasix) 40 mg QODAY PO ; Start 11/12/18 at 09:00 Isosorbide Mononitrate (Imdur) 30 mg DAILY PO ; Start 11/11/18 at 09:00 Levothyroxine Sodium (Synthroid) 25 mcg DAILY06 PO Last administered on at 06:47; Start 11/11/18 at 06:00 Lisinopril (Prinivil) 20 mg DAILY PO ; Start 11/11/18 at 09:00 Lurasidone HCl (Latuda) 20 mg QHS PO ; Start 11/11/18 at 21:00 Metoprolol Tartrate (Lopressor) 25 mg BID PO Last administered on 11/10/18at 23: 15; Start 11/10/18 at 23:00 Montelukast Sodium (Singulair) 10 mg QHS PO Last administered on 11/10/18at 23: 12; Start 11/10/18 at 23:00 Morphine Sulfate (Morphine Sulfate) 2 mg PRN Q2HR PRN IV PAIN Last administered on 11/10/18at 23:16; Start 11/10/18 at 18:45; Stop 11/11/18 at 18:44 Nitroglycerin (Nitrostat) 0.4 mg PRN Q5MIN PRN SL CHEST PAIN Last administered on 11/10/18at 14:50; Start 11/10/18 at 14:30 Nitroglycerin (Nitrostat) 0.4 mg STK-MED ONCE SL ; Start 11/10/18 at 14:31; Stop 11/10/18 at 14:32; Status DC Non-Formulary Medication (Warfarin Sodium ) 1 tab DAILY PO ; Start 11/11/18 at 09 :00; Status UNV Olanzapine (ZyPREXA) 15 mg QHS PO Last administered on 11/10/18at 23:19; Start 11/10/18 at 23:00 Ondansetron HCl (Zofran) 4 mg PRN Q8HRS PRN IV NAUSEA/VOMITING; Start 11/10/18 at 18:45; Stop 11/11/18 at 18:44 Pantoprazole Sodium (Protonix) 40 mg DAILYAC PO ; Start 11/11/18 at 07:30 Potassium Chloride (Klor-Con) 20 meq BID PO Last administered on 11/10/18at 23: 15; Start 11/10/18 at 23:00 Pregabalin (Lyrica) 50 mg BID PO Last administered on 11/10/18at 23:13; Start at 23:00 Quetiapine Fumarate (SEROquel) 100 mg QHS PO Last administered on 11/10/18at 23: 14; Start 11/10/18 at 23:00 Sodium Chloride 1,000 ml @ 1,000 mls/hr 1X ONCE IV Last administered on at 14:36; Start 11/10/18 at 14:00; Stop 11/10/18 at 14:59; Status DC Topiramate (Topamax) 25 mg BID PO ; Start 11/11/18 at 09:00 Warfarin Sodium (Coumadin Per Physician) 1 each PRN DAILY PRN MC SEE COMMENTS Last administered on 11/11/18at 09:00; Start 11/10/18 at 23:00 Warfarin Sodium (Coumadin) 5 mg 1X WARF ONCE PO Last administered on at 23:13; Start 11/10/18 at 23:00; Stop 11/10/18 at 23:01; Status DC Warfarin Sodium (Coumadin) 5 mg DAILY16 PO ; Start 11/11/18 at 16:00 Vitals/I & O Vital Sign - Last 24 Hours 11/10/18 11/10/18 11/10/18 11/10/18 13:33 14:05 14:35 14:39 Temp 97.7 97.7 Pulse 63 60 60 61 Resp 16 20 20 B/P (MAP) 144/81 (102) 121/84 (96) 139/71 (93) 139/71 Pulse Ox 96 96 96 O2 Delivery Room Air Room Air 11/10/18 11/10/18 11/10/18 11/10/18 14:50 15:35 16:05 16:35 Pulse 64 62 62 60 Resp 16 18 16 B/P (MAP) 122/69 127/69 (88) 131/66 (87) 132/59 (83) Pulse Ox 97 95 95 O2 Delivery Room Air 11/10/18 11/10/18 11/10/18 11/10/18 17:05 17:35 17:43 18:05 Pulse 60 60 60 Resp 20 16 20 16 B/P (MAP) 120/59 (79) 127/58 (81) 137/64 (88) Pulse Ox 96 98 99 95 O2 Delivery Room Air Room Air 11/10/18 11/10/18 11/10/18 11/10/18 18:35 18:51 20:00 20:08 Temp 98.2 98.2 Pulse 60 76 70 Resp 18 18 18 B/P (MAP) 131/57 (81) 147/63 (91) 147/63 (91) Pulse Ox 96 96 96 O2 Delivery Room Air Room Air Room Air 11/10/18 11/10/18 11/11/18 11/11/18 22:22 23:15 02:53 07:00 Temp 98.0 98.3 96.7 98.0 98.3 96.7 Pulse 60 60 59 62 Resp 18 17 18 B/P (MAP) 141/68 (92) 141/68 108/54 (72) 120/72 (88) Pulse Ox 95 94 96 O2 Delivery Room Air Room Air Room Air 11/11/18 07:30 O2 Delivery Room Air Intake and Output 11/10/18 11/10/18 11/11/18 15:00 23:00 07:00 Intake Total 1100 ml Output Total 500 ml Balance 1100 ml -500 ml NICOLE SMITH MD Nov 11, 2018 10:21
[2018-11-11] MEDS: ISOSORBIDE MONONITRATE ER 30 MG TAB.ER.24H PO SCH (10:33)
[2018-11-11] MEDS: FLUTICASONE 50MCG/NASAL SPRAY 16GM BOTTLE. NS SCH ×2 (10:33→21:43)
[2018-11-11] MEDS: FLUoxetine HCL 20 MG CAPSULE PO SCH (10:33)
[2018-11-11] MEDS: TOPIRAMATE 25 MG TABLET. PO SCH ×2 (10:33→21:40)
[2018-11-11] MEDS: PREGABALIN 50 MG CAPSULE PO SCH ×2 (10:33→21:38)
[2018-11-11] MEDS: LISINOPRIL 20 MG TABLET PO SCH (10:34)
[2018-11-11] MEDS: BACLOFEN 10 MG TABLET. PO SCH ×3 (10:34→21:40)
[2018-11-11] MEDS: PANTOPRAZOLE 40 MG TABLET.DR. PO SCH (10:34)
[2018-11-11] MEDS: POTASSIUM CHLORIDE 20 MEQ TABLET.ER. PO SCH ×2 (10:35→21:38)
[2018-11-11] MEDS: METOPROLOL TART IMMED RELEASE 25 MG TABLET. PO SCH ×2 (10:35→21:00)
[2018-11-11] MEDS: BENZTROPINE MESYLATE 1 MG TABLET. PO SCH ×2 (10:35→21:38)
[2018-11-11] MEDS: DIVALPROEX DELAYED RELEASE 500 MG TABLET.DR. PO SCH ×2 (10:35→21:40)
[2018-11-11 10:48] LABS: CHOLESTEROL/HDL RATIO 3.8
--- NOTE | 2018-11-11 10:48 | NUR ---
SS following for discharge planning. SS reviewed pt chart. Pt is from home with spouse and currently on room air. No discharge needs noted at this time. SS will continue to follow for pending discharge needs.
[2018-11-11 11:00] VITALS: BP_SYST 142; BP_SYST 170; BP_SYST 182; BP_DIAS 71; BP_DIAS 81; BP_DIAS 83
--- NOTE | 2018-11-11 12:26 | PDOC2 ---
NEUROLOGY CONSULT Date of Admission Date of Admission DATE: 11/11/18 TIME: 12:10 Reason for Consult Reason for Consult: IMPRESSION: Seizure. Syncopal spells. Metabolic encephalopathy. Confusion. PAFib. CAD. TX, Hx. PVCs. HTN. HLD. Aortic valve replacement. Cardiomegaly. Hypothyroidism. Obesity. Cognitive and intellectual impairment. RECOMMENDATIONS/PLAN: Continue Topamax home regimen 25 mg bid. Dose adjustment after EEG. Continue Depakote 500 mg bid. VPA trough level. Continue Lipitor HS. EEG. Lab: see orders. She has been treated with Coumadin par Cardiology, but PT/INR low. HISTORY OF THE PRESENT ILLNESS: This is a 58 -y-old female patient was was admitted for complains of passing out episodes several times on 11/10/18. Her was sitting by her in the casino playing trey slots when she suddenly drifted in and out for few seconds with eyes closing and opening. This is the same as when she had seizures in the past that did involve convulsion. No incontinence episodes. She did again for few seconds after then on the 3rd time she just tipped toward the slot machine but no fall and was not responding to her . She did this again heading home in the car. She stated she had relative frequent passing out episodes in this past week. PAST MEDICAL HISTORY Past Medical History Cardiovascular: CAD, HTN, Hyperlipidemia, Syncope Pulmonary: Asthma, COPD Neuro: seizures, cognitive delay GI: GERD, GI bleed, colitis, gastroparesis Heme/Onc: No pertinent hx Psych: Anxiety, Bipolar, Depression, Schizophrenia, Other (narcolepsy) Musculoskeletal: Osteoarthritis, lower back injury Infectious disease: No pertinent hx ENT: No pertinent hx Renal/: No pertinent hx Endocrine: No pertinent hx Dermatology: No pertinent hx PAST SURGICAL HISTORY Cholecystectomy, Hysterectomy, Other (mechanical aortic valve), PPM, Multiple PCIs with stents FAMILY HISTORY Diabetes ALLERGY: Coded Allergies: Sulfa (Sulfonamide Antibiotics) (Verified Allergy, Severe, rash, tongue swelling, 04/15/15) Iodinated Contrast- Oral and IV Dye (Verified Allergy, Intermediate, rash , 04/15/15) Penicillins (Verified Allergy, Intermediate, Hives, 04/15/15) aspirin (Verified Allergy, Intermediate, Hives, 04/15/15) codeine (Verified Allergy, Intermediate, Hives; SEE COMMENT, 06/08/15) PT REPORTS TAKING LORTAB WITHOUT COMPLICATIONS, PER ED MD diphenhydramine HCl (Verified Allergy, Intermediate, rash, 12/19/13) latex (Verified Allergy, Intermediate, Rash, 12/18/13) MEDICATIONS: Refer to MAR SOCIAL HISTORY: Lives at home. Denies current smoking, drinking, and illicit drug use. REVIEW OF SYSTEMS: Constitutional: Obese. Head: No recent traumatic brain or head injury. Skin: No edema, or rash. Ear: No infection. Eyes: No vision loss or color blindness. Nose: No bleeding or purulent discharges. Hearing: No hearing decrease. Neck: No injury. Breast: No history of cancer, masses,or discharges. Cardiac: TX, PAFib, Pacemaker Placement, HTN, HLD. Pulmonary: No COPD. GI: No GI ulcer, GI bleeding. Urinary/genital: UTI. Endocrinologic: Hypothyroidism, obesity. Skeletomuscular: No muscular atrophy, deformity. Neurological: see HP. Psychiatric: Denies drug use/abuse. Otherwise, not [id number] review of systems. PHYSICAL EXAMINATION: General appearance is in subacute distress. HEENT: Normocephalic and nontraumatic. Eyes, nose, ears, and throat are unremarkable. Neck is supple. No lymphadenopathy. No crepitus. Cardiovascular: S1, S2, regular rate and rhythm. Pulmonary: Clear to auscultation bilaterally. Abdomen: Bowel sounds are positive. Extremities: No rash, lesions, or edema. No restriction of range of motion NEUROLOGICAL EXAMINATION: Awake. Thanking processes are very slow. Not fully oriented to time, place but knew person. PERRL. EOMI. CN: no focal findings. Muscle tone: within normal. Muscle strength: 5- DTR: 1+ Plantar reflex: Flexor response bilaterally Gait: not examined in bed. Sensory exam: no abnormal findings. No acute cerebellar signs elicited. F-T-N test fine. Current Medications Current Medications Current Medications Sodium Chloride 1,000 ml @ 1,000 mls/hr 1X ONCE IV Last administered on at 14:36; Start 11/10/18 at 14:00; Stop 11/10/18 at 14:59; Status DC Nitroglycerin (Nitrostat) 0.4 mg PRN Q5MIN PRN SL CHEST PAIN Last administered on 11/10/18at 14:50; Start 11/10/18 at 14:30 Nitroglycerin (Nitrostat) 0.4 mg STK-MED ONCE SL ; Start 11/10/18 at 14:31; Stop 11/10/18 at 14:32; Status DC Fentanyl Citrate (Fentanyl 2ml Vial) 50 mcg 1X ONCE IV Last administered on at 17:43; Start 11/10/18 at 17:30; Stop 11/10/18 at 17:31; Status DC Ondansetron HCl (Zofran) 4 mg PRN Q8HRS PRN IV NAUSEA/VOMITING; Start 11/10/18 at 18:45; Stop 11/11/18 at 18:44 Morphine Sulfate (Morphine Sulfate) 2 mg PRN Q2HR PRN IV PAIN Last administered on 11/10/18at 23:16; Start 11/10/18 at 18:45; Stop 11/11/18 at 18:44 Atorvastatin Calcium (Lipitor) 10 mg QHS PO Last administered on 11/10/18at 23: 13; Start 11/10/18 at 23:00 Baclofen (Lioresal) 10 mg TID PO Last administered on 11/11/18 10:34; Start at 23:00 Colestipol HCl (Colestid) 1 gm TIDAC PO ; Start 11/11/18 at 07:30; Stop 11/11/18 at 11:55; Status DC Fluoxetine HCl (PROzac) 20 mg DAILY PO Last administered on 11/11/18 10:33; Start 11/11/18 at 09:00 Fluticasone Propionate (Flonase) 2 spray BID NS Last administered on 11/11/18 10:33; Start 11/11/18 at 09:00 Furosemide (Lasix) 40 mg QODAY PO ; Start 11/12/18 at 09:00 Isosorbide Mononitrate (Imdur) 30 mg DAILY PO Last administered on 11/11/18 10: 33; Start 11/11/18 at 09:00 Lisinopril (Prinivil) 20 mg DAILY PO Last administered on 11/11/18 10:34; Start 11/11/18 at 09:00 Lurasidone HCl (Latuda) 20 mg QHS PO ; Start 11/11/18 at 21:00 Metoprolol Tartrate (Lopressor) 25 mg BID PO Last administered on 11/11/18 10: 35; Start 11/10/18 at 23:00 Potassium Chloride (Klor-Con) 20 meq BID PO Last administered on 11/11/18 10:35 ; Start 11/10/18 at 23:00 Pregabalin (Lyrica) 50 mg BID PO Last administered on 11/11/18 10:33; Start at 23:00 Benztropine Mesylate (Cogentin) 1 mg BID PO Last administered on 11/11/18 10:35 ; Start 11/10/18 at 23:00 Divalproex Sodium (Depakote) 500 mg BID PO Last administered on 11/11/18 10:35 ; Start 11/10/18 at 23:00 Levothyroxine Sodium (Synthroid) 25 mcg DAILY06 PO Last administered on 06:47; Start 11/11/18 at 06:00 Montelukast Sodium (Singulair) 10 mg QHS PO Last administered on 11/10/18at 23: 12; Start 11/10/18 at 23:00 Olanzapine (ZyPREXA) 15 mg QHS PO Last administered on 11/10/18 23:19; Start 11/10/18 at 23:00 Pantoprazole Sodium (Protonix) 40 mg DAILYAC PO Last administered on 11/11/18 10:34; Start 11/11/18 at 07:30 Quetiapine Fumarate (SEROquel) 100 mg QHS PO Last administered on 11/10/18 23: 14; Start 11/10/18 at 23:00 Topiramate (Topamax) 25 mg BID PO Last administered on 11/11/18 10:33; Start at 09:00 Non-Formulary Medication (Warfarin Sodium ) 1 tab DAILY PO ; Start 11/11/18 at 09 :00; Status UNV Warfarin Sodium (Coumadin Per Physician) 1 each PRN DAILY PRN MC SEE COMMENTS Last administered on 11/11/18 09:00; Start 11/10/18 at 23:00; Stop 11/11/18 at 10 :19; Status DC Warfarin Sodium (Coumadin) 5 mg 1X WARF ONCE PO Last administered on 2/28/ 19at 23:13; Start 11/10/18 at 23:00; Stop 11/10/18 at 23:01; Status DC Warfarin Sodium (Coumadin) 5 mg DAILY16 PO ; Start 11/11/18 at 16:00 Tramadol HCl (Ultram) 50 mg PRN BID PRN PO PAIN Last administered on 11/11/18at 10:36; Start 11/11/18 at 10:15 Warfarin Sodium (Coumadin Per Pharmacy) 1 each PRN DAILY PRN MC SEE COMMENTS; Start 11/11/18 at 10:15 Enoxaparin Sodium (Lovenox 100mg Syringe) 100 mg Q12HR SQ Last administered on 11/11/18at 10:36; Start 11/11/18 at 10:30 Colestipol HCl (Colestid) 1 gm TID@1000,1400,2200 PO ; Start 11/11/18 at 14:00 Active Scripts Active Synthroid (Levothyroxine Sodium) 25 Mcg Tablet 25 Mcg PO DAILY07 30 Days Atorvastatin Calcium 10 Mg Tablet 10 Mg PO QHS Reported [place] 5-325 Tablet (Acetaminophen/Hydrocodone Bitart) 1 Each Tablet 1 Tab PO PRN BID PRN Baclofen 10 Mg Tablet 1 Tab PO TID Divalproex Sodium 500 Mg Tablet.dr 1 Tab PO BID Colestipol Hcl 1 Gm Tablet 1 Gm PO TID Seroquel (Quetiapine Fumarate) 100 Mg Tablet 1 Tab PO QHS Isosorbide Mononitrate Er (Isosorbide Mononitrate) 30 Mg Tab.er.24h 1 Tab PO DAILY Topiramate 25 Mg Tablet 1 Tab PO BID Warfarin Sodium 5 Mg Tablet 1 Tab PO DAILY Furosemide 40 Mg Tablet 1 Tab PO DAILY Latuda (Lurasidone Hcl) 40 Mg Tablet 20 Mg PO QHS Singulair Tablet (Montelukast Sodium) 10 Mg Tablet 1 Tab PO HS Zyprexa (Olanzapine) 15 Mg Tablet 1 Tab PO QHS Fluoxetine Hcl 20 Mg Capsule 1 Cap PO DAILY Lyrica (Pregabalin) 50 Mg Capsule 1 Cap PO BID Metoprolol Tartrate 25 Mg Tablet 1 Tab PO BID Lisinopril 20 Mg Tablet 1 Tab PO DAILY Omeprazole 40 Mg Capsule.dr 1 Cap PO DAILY Klor-Con M20 (Potassium Chloride) 20 Meq Tab.er.prt 1 Tab PO BID Benztropine Mesylate 1 Mg Tablet 1 Tab PO BID Fluticasone Propionate Nasal [place] (Fluticasone Propionate) 16 Gm [place].susp 2 Sprays NS BID for seasonal allergies Allergies Allergies: Allergies Coded Allergies Type Severity Reaction Last Updated Verified Sulfa (Sulfonamide Antibiotics) Allergy Severe rash, tongue swelling 04/15/15 Yes Iodinated Contrast- Oral and IV Dye Allergy Intermediate rash 04/15/15 Yes Penicillins Allergy Intermediate Hives 04/15/15 Yes aspirin Allergy Intermediate Hives 04/15/15 Yes codeine Allergy Intermediate Hives; SEE COMMENT 06/08/15 Yes diphenhydramine HCl Allergy Intermediate rash 12/19/13 Yes latex Allergy Intermediate Rash 12/18/13 Yes ROS Review of System The patient denies any associated fevers, chills, headache, ear pain, rhinorrhea , sore throat, stiff neck, productive cough, chest pain, shortness of breath, back or flank pain, abdominal pain, nausea, vomiting, diarrhea, constipation, dysuria, rash, numbness, weakness, tingling, incontinence, difficulty ambulating, or diaphoresis. Physical Exam Physical Exam General: Well developed, well nourished, no acute distress, well appearing HEENT: Pupils equally round and reactive to light, EOMI, no discharge, normal conjunctiva Neck: Supple, no nuchal rigidity, no JVD, trachea midline, no tenderness Cardiac: RRR, no murmurs, no gallops, no rubs Chest/Lungs: CTAB, no wheeze, no rhonchi, no crackles Abdomen: soft, non-distended, no guarding, no peritoneal signs, non-tender Back: No tenderness Extremities: no edema, pulses intact, non-tender,capillary refill <3 sec bilateral upper and lower extremities, Neuro: Alert and oriented x 4, no focal deficits, normal speech Vitals Vitals: Vital Signs Date Time Temp Pulse Resp B/P (MAP) Pulse Ox O2 Delivery O2 Flow Rate FiO2 11/11/18 10:36 18 96 Room Air 11/11/18 10:35 62 120/72 11/11/18 07:00 96.7 96.7 Labs Labs Laboratory Tests Test 11/10/18 13:55 11/10/18 14:25 11/11/18 03:30 11/11/18 06:35 White Blood Count 8.2 x10^3/uL (4.0-11.0) 6.2 x10^3/uL (4.0-11.0) Red Blood Count 4.73 x10^6/uL (3.50-5.40) 4.26 x10^6/uL (3.50-5.40) Hemoglobin 13.3 g/dL (12.0-15.5) 12.1 g/dL (12.0-15.5) Hematocrit 40.2 % (36.0-47.0) 36.5 % (36.0-47.0) Mean Corpuscular Volume 85 fL (79-100) 86 fL (79-100) Mean Corpuscular Hemoglobin 28 pg (25-35) 28 pg (25-35) Mean Corpuscular Hemoglobin Concent 33 g/dL (31-37) 33 g/dL (31-37) Red Cell Distribution Width 14.0 % (11.5-14.5) 14.4 % (11.5-14.5) Platelet Count 183 x10^3/uL (140-400) 158 x10^3/uL (140-400) Neutrophils (%) (Auto) 73 % (31-73) 55 % (31-73) Lymphocytes (%) (Auto) 17 % (24-48) 34 % (24-48) Monocytes (%) (Auto) 7 % (0-9) 8 % (0-9) Eosinophils (%) (Auto) 2 % (0-3) 3 % (0-3) Basophils (%) (Auto) 1 % (0-3) 1 % (0-3) Neutrophils # (Auto) 6.0 x10^3uL (1.8-7.7) 3.4 x10^3uL (1.8-7.7) Lymphocytes # (Auto) 1.4 x10^3/uL (1.0-4.8) 2.1 x10^3/uL (1.0-4.8) Monocytes # (Auto) 0.6 x10^3/uL (0.0-1.1) 0.5 x10^3/uL (0.0-1.1) Eosinophils # (Auto) 0.2 x10^3/uL (0.0-0.7) 0.2 x10^3/uL (0.0-0.7) Basophils # (Auto) 0.1 x10^3/uL (0.0-0.2) 0.0 x10^3/uL (0.0-0.2) Prothrombin Time 15.7 SEC (11.7-14.0) Prothromb Time International Ratio 1.3 (0.8-1.1) Sodium Level 144 mmol/L (136-145) 145 mmol/L (136-145) Potassium Level 3.9 mmol/L (3.5-5.1) 3.6 mmol/L (3.5-5.1) Chloride Level 108 mmol/L (98-107) 111 mmol/L (98-107) Carbon Dioxide Level 26 mmol/L (21-32) 25 mmol/L (21-32) Anion Gap 10 (6-14) 9 (6-14) Blood Urea Nitrogen 16 mg/dL (7-20) 14 mg/dL (7-20) Creatinine 0.6 mg/dL (0.6-1.0) 0.5 mg/dL (0.6-1.0) Estimated GFR (Cockcroft-Gault) 102.7 126.7 BUN/Creatinine Ratio 27 (6-20) Glucose Level 113 mg/dL (70-99) 94 mg/dL (70-99) Calcium Level 8.5 mg/dL (8.5-10.1) 8.5 mg/dL (8.5-10.1) Magnesium Level 1.8 mg/dL (1.8-2.4) Total Bilirubin 0.3 mg/dL (0.2-1.0) Aspartate Amino Transf (AST/SGOT) 23 U/L (15-37) Alanine Aminotransferase (ALT/SGPT) 22 U/L (14-59) Alkaline Phosphatase 82 U/L (46-116) Creatine Kinase 70 U/L (26-192) Creatine Kinase MB (Mass) 0.8 ng/mL (0.0-3.6) Creatine Kinase MB Relative Index % (0-4) Troponin I Quantitative < 0.017 ng/mL (0.000-0.055) HU-Bgr-[id number]-Type Natriuretic Peptide 406 pg/mL (0-124) Total Protein 6.4 g/dL (6.4-8.2) Albumin 3.0 g/dL (3.4-5.0) Albumin/Globulin Ratio 0.9 (1.0-1.7) Lipase 102 U/L (73-393) Thyroid Stimulating Hormone (TSH) 1.658 uIU/mL (0.358-3.74) Ethyl Alcohol Level < 10 mg/dL (0-10) Urine Color Yellow Urine Clarity Clear Urine pH 7.0 Urine Specific [place] 1.025 Urine Protein Negative mg/dL (NEG-TRACE) Urine Glucose (UA) Negative mg/dL (NEG) Urine Ketones (Stick) 15 mg/dL (NEG) Urine Blood Negative (NEG) Urine Nitrite Negative (NEG) Urine Bilirubin Small (NEG) Urine Urobilinogen Dipstick 1.0 mg/dL (0.2 mg/dL) Urine Leukocyte Esterase Negative (NEG) Urine RBC 0 /HPF (0-2) Urine WBC 1-4 /HPF (0-4) Urine Squamous Epithelial Cells Occ /LPF Urine Bacteria Few /HPF (0-FEW) Urine Mucus Mod /LPF Urine Opiates Screen Neg (NEG) Urine Methadone Screen Neg (NEG) Urine Barbiturates Neg (NEG) Urine Phencyclidine Screen Neg (NEG) Urine Amphetamine/Methamphetamine Neg (NEG) Urine Benzodiazepines Screen Neg (NEG) Urine Cocaine Screen Neg (NEG) Urine Cannabinoids Screen Neg (NEG) Urine Ethyl Alcohol Neg (NEG) Triglycerides Level 136 mg/dL (0-150) Cholesterol Level 111 mg/dL (0-200) LDL Cholesterol, Calculated 55 mg/dL (0-100) VLDL Cholesterol, Calculated 27 mg/dL (0-40) Non-HDL Cholesterol Calculated 82 mg/dL (0-129) HDL Cholesterol 29 mg/dL (40-60) Cholesterol/HDL Ratio 3.8 Laboratory Tests Test 11/10/18 13:55 11/10/18 14:25 11/11/18 03:30 11/11/18 06:35 White Blood Count 8.2 x10^3/uL (4.0-11.0) 6.2 x10^3/uL (4.0-11.0) Red Blood Count 4.73 x10^6/uL (3.50-5.40) 4.26 x10^6/uL (3.50-5.40) Hemoglobin 13.3 g/dL (12.0-15.5) 12.1 g/dL (12.0-15.5) Hematocrit 40.2 % (36.0-47.0) 36.5 % (36.0-47.0) Mean Corpuscular Volume 85 fL (79-100) 86 fL (79-100) Mean Corpuscular Hemoglobin 28 pg (25-35) 28 pg (25-35) Mean Corpuscular Hemoglobin Concent 33 g/dL (31-37) 33 g/dL (31-37) Red Cell Distribution Width 14.0 % (11.5-14.5) 14.4 % (11.5-14.5) Platelet Count 183 x10^3/uL (140-400) 158 x10^3/uL (140-400) Neutrophils (%) (Auto) 73 % (31-73) 55 % (31-73) Lymphocytes (%) (Auto) 17 % (24-48) 34 % (24-48) Monocytes (%) (Auto) 7 % (0-9) 8 % (0-9) Eosinophils (%) (Auto) 2 % (0-3) 3 % (0-3) Basophils (%) (Auto) 1 % (0-3) 1 % (0-3) Neutrophils # (Auto) 6.0 x10^3uL (1.8-7.7) 3.4 x10^3uL (1.8-7.7) Lymphocytes # (Auto) 1.4 x10^3/uL (1.0-4.8) 2.1 x10^3/uL (1.0-4.8) Monocytes # (Auto) 0.6 x10^3/uL (0.0-1.1) 0.5 x10^3/uL (0.0-1.1) Eosinophils # (Auto) 0.2 x10^3/uL (0.0-0.7) 0.2 x10^3/uL (0.0-0.7) Basophils # (Auto) 0.1 x10^3/uL (0.0-0.2) 0.0 x10^3/uL (0.0-0.2) Prothrombin Time 15.7 SEC (11.7-14.0) Prothromb Time International Ratio 1.3 (0.8-1.1) Sodium Level 144 mmol/L (136-145) 145 mmol/L (136-145) Potassium Level 3.9 mmol/L (3.5-5.1) 3.6 mmol/L (3.5-5.1) Chloride Level 108 mmol/L (98-107) 111 mmol/L (98-107) Carbon Dioxide Level 26 mmol/L (21-32) 25 mmol/L (21-32) Anion Gap 10 (6-14) 9 (6-14) Blood Urea Nitrogen 16 mg/dL (7-20) 14 mg/dL (7-20) Creatinine 0.6 mg/dL (0.6-1.0) 0.5 mg/dL (0.6-1.0) Estimated GFR (Cockcroft-Gault) 102.7 126.7 BUN/Creatinine Ratio 27 (6-20) Glucose Level 113 mg/dL (70-99) 94 mg/dL (70-99) Calcium Level 8.5 mg/dL (8.5-10.1) 8.5 mg/dL (8.5-10.1) Magnesium Level 1.8 mg/dL (1.8-2.4) Total Bilirubin 0.3 mg/dL (0.2-1.0) Aspartate Amino Transf (AST/SGOT) 23 U/L (15-37) Alanine Aminotransferase (ALT/SGPT) 22 U/L (14-59) Alkaline Phosphatase 82 U/L (46-116) Creatine Kinase 70 U/L (26-192) Creatine Kinase MB (Mass) 0.8 ng/mL (0.0-3.6) Creatine Kinase MB Relative Index % (0-4) Troponin I Quantitative < 0.017 ng/mL (0.000-0.055) [place]-Vnn-J-Type Natriuretic Peptide 406 pg/mL (0-124) Total Protein 6.4 g/dL (6.4-8.2) Albumin 3.0 g/dL (3.4-5.0) Albumin/Globulin Ratio 0.9 (1.0-1.7) Lipase 102 U/L (73-393) Thyroid Stimulating Hormone (TSH) 1.658 uIU/mL (0.358-3.74) Ethyl Alcohol Level < 10 mg/dL (0-10) Urine Color Yellow Urine Clarity Clear Urine pH 7.0 Urine Specific [place] 1.025 Urine Protein Negative mg/dL (NEG-TRACE) Urine Glucose (UA) Negative mg/dL (NEG) Urine Ketones (Stick) 15 mg/dL (NEG) Urine Blood Negative (NEG) Urine Nitrite Negative (NEG) Urine Bilirubin Small (NEG) Urine Urobilinogen Dipstick 1.0 mg/dL (0.2 mg/dL) Urine Leukocyte Esterase Negative (NEG) Urine RBC 0 /HPF (0-2) Urine WBC 1-4 /HPF (0-4) Urine Squamous Epithelial Cells Occ /LPF Urine Bacteria Few /HPF (0-FEW) Urine Mucus Mod /LPF Urine Opiates Screen Neg (NEG) Urine Methadone Screen Neg (NEG) Urine Barbiturates Neg (NEG) Urine Phencyclidine Screen Neg (NEG) Urine Amphetamine/Methamphetamine Neg (NEG) Urine Benzodiazepines Screen Neg (NEG) Urine Cocaine Screen Neg (NEG) Urine Cannabinoids Screen Neg (NEG) Urine Ethyl Alcohol Neg (NEG) Triglycerides Level 136 mg/dL (0-150) Cholesterol Level 111 mg/dL (0-200) LDL Cholesterol, Calculated 55 mg/dL (0-100) VLDL Cholesterol, Calculated 27 mg/dL (0-40) Non-HDL Cholesterol Calculated 82 mg/dL (0-129) HDL Cholesterol 29 mg/dL (40-60) Cholesterol/HDL Ratio 3.8 GENA LOTT MD Nov 11, 2018 12:26
[2018-11-11] MEDS ORDERED: oxyCODONE/APAP 5/325 1 TAB TABLET PO PRN (14:45)
[2018-11-11] MEDS: COLESTIPOL HCL 1 GM TABLET PO SCH ×2 (14:55→22:28)
[2018-11-11 15:00] VITALS: BP 130/54
[2018-11-11] MEDS ORDERED: WARFARIN 5 MG TABLET. PO SCH (16:00)
[2018-11-11 19:10] VITALS: BP 116/66
[2018-11-11 19:48] LABS: VAL ACID 48 mcg/mL (50-100)
--- NOTE | 2018-11-11 20:41 | EEG ---
DATE OF SERVICE: 11/11/2018 ELECTROENCEPHALOGRAM NUMBER: [id number]. OBJECTIVE: This is a 58-year-old female patient with history of seizure. She had multiple syncopal or seizure like spells on 11/10/2018 in the past week. EEG was requested to evaluate seizure activity. METHODS: Twenty electrodes were applied according to the international 10-20 electrode placement system. EKG monitoring, hyperventilation, intermittent photic stimulation, monopolar and bipolar montages are routinely utilized. The record was obtained on a digital system with video monitoring. MEDICATIONS: Depakote and Topamax. FINDINGS: 1. Background: The patient was recorded in the awake, drowsy and sleep states. The overall background amplitude is 10-20 microvolts. A posterior dominant rhythm of 6-8 Hz is observed with superimposed slowing in the theta and delta frequencies. 2. Abnormalities: No specific epileptiform discharge or electrographic seizure is seen. The superimposed slowing in the theta and delta frequencies noted. Some triphasic waves also noted, but not frequent. 3. Activation: Hyperventilation was not performed because the patient was unable to perform the technique. Intermittent photic stimulation was performed with photic driving. No specific epileptiform discharge or electrographic seizure induced by hyperventilation or intermittent photic stimulation. IMPRESSION: This electroencephalogram is an abnormal study for the awake, drowsy and sleep states. The posterior dominant rhythm of 6-8 Hz is slow for age. There is superimposed infrequent slowing in the theta and delta frequencies. No focal, lateralizing, specific epileptiform discharge or electrographic seizure is seen. This pattern of electroencephalogram may suggest encephalopathy. GENA LOTT MD DR: LUAN/cori JOB#: [id number] / [id number] OLIVIA
[2018-11-11] MEDS: MONTELUKAST SODIUM 10 MG TABLET. PO SCH (21:38)
[2018-11-11] MEDS: LURASIDONE 40 MG TABLET. PO SCH (21:39)
[2018-11-11] MEDS: QUEtiapine 100 MG TABLET. PO SCH (21:40)
[2018-11-11] MEDS: OLANZapine 5 MG TABLET PO SCH (21:41)
[2018-11-11] MEDS: ATORVASTATIN CALCIUM 10 MG TABLET. PO SCH (21:41)
[2018-11-11 23:07] VITALS: BP 101/57
[2018-11-12 03:45] VITALS: BP 118/55
[2018-11-12 05:04] LABS: PROTHROMBIN TIME PATIENT 17.3 SEC (11.7-14.0)
[2018-11-12 07:00] VITALS: BP 136/90
[2018-11-12] MEDS ORDERED: LEVOTHYROXINE 25 MCG TABLET. PO SCH (07:30)
[2018-11-12] MEDS: PANTOPRAZOLE 40 MG TABLET.DR. PO SCH (08:22)
[2018-11-12] MEDS: LISINOPRIL 20 MG TABLET PO SCH (08:22)
[2018-11-12] MEDS: ISOSORBIDE MONONITRATE ER 30 MG TAB.ER.24H PO SCH (08:23)
[2018-11-12] MEDS: TOPIRAMATE 25 MG TABLET. PO SCH ×2 (08:23→20:45)
[2018-11-12] MEDS: POTASSIUM CHLORIDE 20 MEQ TABLET.ER. PO SCH ×2 (08:23→20:44)
[2018-11-12] MEDS: FUROSEMIDE 40 MG TABLET. PO SCH (08:23)
[2018-11-12] MEDS: DIVALPROEX DELAYED RELEASE 500 MG TABLET.DR. PO SCH ×2 (08:24→20:45)
[2018-11-12] MEDS: METOPROLOL TART IMMED RELEASE 25 MG TABLET. PO SCH ×2 (08:24→20:48)
[2018-11-12] MEDS: FLUoxetine HCL 20 MG CAPSULE PO SCH (08:25)
[2018-11-12] MEDS: BACLOFEN 10 MG TABLET. PO SCH (08:31)
[2018-11-12] MEDS: BENZTROPINE MESYLATE 1 MG TABLET. PO SCH ×2 (08:31→20:43)
[2018-11-12] MEDS: PREGABALIN 50 MG CAPSULE PO SCH ×2 (08:31→20:47)
[2018-11-12] MEDS: FLUTICASONE 50MCG/NASAL SPRAY 16GM BOTTLE. NS SCH ×2 (09:00→20:42)
--- NOTE | 2018-11-12 09:42 | NUR ---
patient very drowsy during morning assessment. patient aroused by shaking patient and speaking patients name loudly. patient stating she is "confused" but doesn't know why. patient slow to answer questions. will continue to monitor patient.
[2018-11-12 11:07] VITALS: BP 143/73
--- NOTE | 2018-11-12 12:00 | PDOC ---
PROGRESS NOTES Subjective Subjective jerky movements at times Objective Objective Vital Signs Date Time Temp Pulse Resp B/P (MAP) Pulse Ox O2 Delivery O2 Flow Rate FiO2 11/12/18 11:07 97.4 60 20 143/73 (96) 95 Room Air 97.4 Intake and Output 11/12/18 07:00 Intake Total 250 ml Output Total 1050 ml Balance -800 ml Intake Oral 250 ml Output Urine Total 1050 ml Physical Exam Abdomen: Soft, No tenderness Heart: Regular rate (SR with intermittent PVCs. ), Normal S1, Normal S2, Other (ehjection click with 3/6 systolic murmur to DEXTER border) Extremities: No cyanosis, No edema General: Alert, Oriented X3, Cooperative, No acute distress HEENT: Atraumatic, Mucous membr. 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 Noncompliant with seizure medications. Mechanical aortic valve replacement, on Coumadin. subtherapeutic Bipolar.disorder Plan: EEG neg for seizures depokate levels 48 low. d/c muscle relaxants and narcotic meds. d/c tramadol. pt/ot inr 1.4 low ,bridge with Lovenox. pt admitted to hospitalist service last night ,transferred to my service today give Lovenox 100 sq bid bridging, inr 1.3 low. pt/ot/rehab neuro consult cardiology consult tele/ cvc inr 1.3 low neuro checks q 4 hrs adjust Coumadin dose Comment Review of Relevant I have reviewed the following items yonathan (where applicable) has been applied. Labs Laboratory Tests Test 11/11/18 18:00 11/12/18 04:00 Valproic Acid (Depakene) Level 48 mcg/mL (50-100) Valproic Acid Last Dose Date 11/11/18 Valproic Acid Last Dose Time 0800 Prothrombin Time 17.3 SEC (11.7-14.0) Prothromb Time International Ratio 1.4 (0.8-1.1) Medications Current Medications Colestipol HCl (Colestid) 1 gm TID@0800,1300,2000 PO ; Start 11/12/18 at 13:00; Stop 11/12/18 at 13:00; Status DC Colestipol HCl (Colestid) 1 gm TID@1000,1400,2200 PO Last administered on at 22:28; Start 11/11/18 at 14:00; Stop 11/12/18 at 10:05; Status DC Furosemide (Lasix) 40 mg QODAY PO Last administered on 11/12/18at 08:23; Start at 09:00 Levothyroxine Sodium (Synthroid) 25 mcg DAILY06 PO ; Start 11/13/18 at 06:00 Levothyroxine Sodium (Synthroid) 25 mcg DAILYAC PO Last administered on at 08:22; Start 11/12/18 at 07:30; Stop 11/12/18 at 10:06; Status DC Lurasidone HCl (Latuda) 20 mg QHS PO Last administered on 11/11/18at 21:39; Start 11/11/18 at 21:00 Oxycodone/ Acetaminophen (Percocet 5/325) 1 tab PRN Q6HRS PRN PO PAIN Last administered on 11/11/18at 14:55; Start 11/11/18 at 14:45 Warfarin Sodium (Coumadin) 5 mg DAILY16 PO Last administered on 11/11/18at 17:19 ; Start 11/11/18 at 16:00 Vitals/I & O Vital Sign - Last 24 Hours 11/11/18 11/11/18 11/11/18 11/11/18 14:55 15:00 16:00 19:10 Temp 96.8 97.7 96.8 97.7 Pulse 65 58 Resp 18 18 16 B/P (MAP) 130/54 (79) 116/66 (83) Pulse Ox 96 96 96 91 O2 Delivery Room Air Room Air Room Air Room Air 11/11/18 11/11/18 11/11/18 11/12/18 20:00 21:00 23:07 03:45 Temp 97.9 97.9 97.9 97.9 Pulse 58 60 60 Resp 18 17 B/P (MAP) 101/57 101/57 (72) 118/55 (76) Pulse Ox 94 94 O2 Delivery Room Air Room Air Room Air 11/12/18 11/12/18 11/12/18 11/12/18 07:00 08:00 08:22 08:23 Temp 97.1 97.1 Pulse 96 96 96 Resp 16 B/P (MAP) 136/90 (105) 136/90 136/90 Pulse Ox 96 O2 Delivery Room Air Room Air 11/12/18 11/12/18 08:24 11:07 Temp 97.4 97.4 Pulse 96 60 Resp 20 B/P (MAP) 136/90 143/73 (96) Pulse Ox 95 O2 Delivery Room Air Intake and Output 11/11/18 11/11/18 11/12/18 15:00 23:00 07:00 Intake Total 250 ml Output Total 800 ml 250 ml Balance -800 ml -250 ml 250 ml NICOLE SMITH MD Nov 12, 2018 12:00
--- NOTE | 2018-11-12 12:33 | PDOC ---
PROGRESS NOTES Subjective Subjective Patient seen and examined The patient feels slightly better today. Objective Objective Vital Signs Date Time Temp Pulse Resp B/P (MAP) Pulse Ox O2 Delivery O2 Flow Rate FiO2 11/12/18 11:07 97.4 60 20 143/73 (96) 95 Room Air 97.4 Intake and Output 11/12/18 07:00 Intake Total 250 ml Output Total 1050 ml Balance -800 ml Intake Oral 250 ml Output Urine Total 1050 ml Physical Exam Abdomen: Normal bowel sounds Heart: Regular rate General: moderate distress Lungs: Clear to auscultation Assessment Assessment Possible seizure. Neurology workup in progress. History of a seizure disorder as well as schizophrenia and bipolar disorder. Telemetry shows a stable rhythm. Coronary artery disease. Previous stenting. No acute ischemic changes. Continue medical treatment. Stress testing 3 months ago showed no ischemia and an ejection fraction of 70%. Permanent pacemaker for sick sinus syndrome. Recent interrogation showed no significant arrhythmias. Aortic valve replacement with mechanical valve. Coumadin per anticoagulation. INR low at 1.3. Possibly secondary to colestipol and would consider discontinuing it. History of medical noncompliance with recent frequent hospitalizations. Controlled hypertension. Statins for hyperlipidemia. Comment Review of Relevant I have reviewed the following items yonathan (where applicable) has been applied. Labs Laboratory Tests Test 11/10/18 13:55 11/10/18 14:25 11/11/18 03:30 11/11/18 06:35 White Blood Count 8.2 x10^3/uL (4.0-11.0) 6.2 x10^3/uL (4.0-11.0) Red Blood Count 4.73 x10^6/uL (3.50-5.40) 4.26 x10^6/uL (3.50-5.40) Hemoglobin 13.3 g/dL (12.0-15.5) 12.1 g/dL (12.0-15.5) Hematocrit 40.2 % (36.0-47.0) 36.5 % (36.0-47.0) Mean Corpuscular Volume 85 fL (79-100) 86 fL (79-100) Mean Corpuscular Hemoglobin 28 pg (25-35) 28 pg (25-35) Mean Corpuscular Hemoglobin Concent 33 g/dL (31-37) 33 g/dL (31-37) Red Cell Distribution Width 14.0 % (11.5-14.5) 14.4 % (11.5-14.5) Platelet Count 183 x10^3/uL (140-400) 158 x10^3/uL (140-400) Neutrophils (%) (Auto) 73 % (31-73) 55 % (31-73) Lymphocytes (%) (Auto) 17 % (24-48) 34 % (24-48) Monocytes (%) (Auto) 7 % (0-9) 8 % (0-9) Eosinophils (%) (Auto) 2 % (0-3) 3 % (0-3) Basophils (%) (Auto) 1 % (0-3) 1 % (0-3) Neutrophils # (Auto) 6.0 x10^3uL (1.8-7.7) 3.4 x10^3uL (1.8-7.7) Lymphocytes # (Auto) 1.4 x10^3/uL (1.0-4.8) 2.1 x10^3/uL (1.0-4.8) Monocytes # (Auto) 0.6 x10^3/uL (0.0-1.1) 0.5 x10^3/uL (0.0-1.1) Eosinophils # (Auto) 0.2 x10^3/uL (0.0-0.7) 0.2 x10^3/uL (0.0-0.7) Basophils # (Auto) 0.1 x10^3/uL (0.0-0.2) 0.0 x10^3/uL (0.0-0.2) Prothrombin Time 15.7 SEC (11.7-14.0) Prothromb Time International Ratio 1.3 (0.8-1.1) Sodium Level 144 mmol/L (136-145) 145 mmol/L (136-145) Potassium Level 3.9 mmol/L (3.5-5.1) 3.6 mmol/L (3.5-5.1) Chloride Level 108 mmol/L (98-107) 111 mmol/L (98-107) Carbon Dioxide Level 26 mmol/L (21-32) 25 mmol/L (21-32) Anion Gap 10 (6-14) 9 (6-14) Blood Urea Nitrogen 16 mg/dL (7-20) 14 mg/dL (7-20) Creatinine 0.6 mg/dL (0.6-1.0) 0.5 mg/dL (0.6-1.0) Estimated GFR (Cockcroft-Gault) 102.7 126.7 BUN/Creatinine Ratio 27 (6-20) Glucose Level 113 mg/dL (70-99) 94 mg/dL (70-99) Calcium Level 8.5 mg/dL (8.5-10.1) 8.5 mg/dL (8.5-10.1) Magnesium Level 1.8 mg/dL (1.8-2.4) Total Bilirubin 0.3 mg/dL (0.2-1.0) Aspartate Amino Transf (AST/SGOT) 23 U/L (15-37) Alanine Aminotransferase (ALT/SGPT) 22 U/L (14-59) Alkaline Phosphatase 82 U/L (46-116) Creatine Kinase 70 U/L (26-192) Creatine Kinase MB (Mass) 0.8 ng/mL (0.0-3.6) Creatine Kinase MB Relative Index % (0-4) Troponin I Quantitative < 0.017 ng/mL (0.000-0.055) PH-Xjf-O-Type Natriuretic Peptide 406 pg/mL (0-124) Total Protein 6.4 g/dL (6.4-8.2) Albumin 3.0 g/dL (3.4-5.0) Albumin/Globulin Ratio 0.9 (1.0-1.7) Lipase 102 U/L (73-393) Thyroid Stimulating Hormone (TSH) 1.658 uIU/mL (0.358-3.74) Ethyl Alcohol Level < 10 mg/dL (0-10) Urine Color Yellow Urine Clarity Clear Urine pH 7.0 Urine Specific [place] 1.025 Urine Protein Negative mg/dL (NEG-TRACE) Urine Glucose (UA) Negative mg/dL (NEG) Urine Ketones (Stick) 15 mg/dL (NEG) Urine Blood Negative (NEG) Urine Nitrite Negative (NEG) Urine Bilirubin Small (NEG) Urine Urobilinogen Dipstick 1.0 mg/dL (0.2 mg/dL) Urine Leukocyte Esterase Negative (NEG) Urine RBC 0 /HPF (0-2) Urine WBC 1-4 /HPF (0-4) Urine Squamous Epithelial Cells Occ /LPF Urine Bacteria Few /HPF (0-FEW) Urine Mucus Mod /LPF Urine Opiates Screen Neg (NEG) Urine Methadone Screen Neg (NEG) Urine Barbiturates Neg (NEG) Urine Phencyclidine Screen Neg (NEG) Urine Amphetamine/Methamphetamine Neg (NEG) Urine Benzodiazepines Screen Neg (NEG) Urine Cocaine Screen Neg (NEG) Urine Cannabinoids Screen Neg (NEG) Urine Ethyl Alcohol Neg (NEG) Triglycerides Level 136 mg/dL (0-150) Cholesterol Level 111 mg/dL (0-200) LDL Cholesterol, Calculated 55 mg/dL (0-100) VLDL Cholesterol, Calculated 27 mg/dL (0-40) Non-HDL Cholesterol Calculated 82 mg/dL (0-129) HDL Cholesterol 29 mg/dL (40-60) Cholesterol/HDL Ratio 3.8 Test 11/11/18 18:00 11/12/18 04:00 Valproic Acid (Depakene) Level 48 mcg/mL (50-100) Valproic Acid Last Dose Date 11/11/18 Valproic Acid Last Dose Time 0800 Prothrombin Time 17.3 SEC (11.7-14.0) Prothromb Time International Ratio 1.4 (0.8-1.1) Laboratory Tests Test 11/11/18 18:00 11/12/18 04:00 Valproic Acid (Depakene) Level 48 mcg/mL (50-100) Valproic Acid Last Dose Date 11/11/18 Valproic Acid Last Dose Time 0800 Prothrombin Time 17.3 SEC (11.7-14.0) Prothromb Time International Ratio 1.4 (0.8-1.1) Medications Current Medications Sodium Chloride 1,000 ml @ 1,000 mls/hr 1X ONCE IV Last administered on at 14:36; Start 11/10/18 at 14:00; Stop 11/10/18 at 14:59; Status DC Nitroglycerin (Nitrostat) 0.4 mg PRN Q5MIN PRN SL CHEST PAIN Last administered on 11/10/18at 14:50; Start 11/10/18 at 14:30 Nitroglycerin (Nitrostat) 0.4 mg STK-MED ONCE SL ; Start 11/10/18 at 14:31; Stop 11/10/18 at 14:32; Status DC Fentanyl Citrate (Fentanyl 2ml Vial) 50 mcg 1X ONCE IV Last administered on 17:43; Start 11/10/18 at 17:30; Stop 11/10/18 at 17:31; Status DC Ondansetron HCl (Zofran) 4 mg PRN Q8HRS PRN IV NAUSEA/VOMITING; Start 11/10/18 at 18:45; Stop 11/11/18 at 18:44; Status DC Morphine Sulfate (Morphine Sulfate) 2 mg PRN Q2HR PRN IV PAIN Last administered on 11/10/18 23:16; Start 11/10/18 at 18:45; Stop 11/11/18 at 18:44 ; Status DC Atorvastatin Calcium (Lipitor) 10 mg QHS PO Last administered on 11/11/18 21:41 ; Start 11/10/18 at 23:00 Baclofen (Lioresal) 10 mg TID PO Last administered on 11/12/18 08:31; Start at 23:00; Stop 11/12/18 at 11:57; Status DC Colestipol HCl (Colestid) 1 gm TIDAC PO ; Start 11/11/18 at 07:30; Stop 11/11/18 at 11:55; Status DC Fluoxetine HCl (PROzac) 20 mg DAILY PO Last administered on 11/12/18 08:25; Start 11/11/18 at 09:00 Fluticasone Propionate (Flonase) 2 spray BID NS Last administered on 11/11/18 21:43; Start 11/11/18 at 09:00 Furosemide (Lasix) 40 mg QODAY PO Last administered on 11/12/18 08:23; Start at 09:00 Isosorbide Mononitrate (Imdur) 30 mg DAILY PO Last administered on 11/12/18 08: 23; Start 11/11/18 at 09:00 Lisinopril (Prinivil) 20 mg DAILY PO Last administered on 11/12/18 08:22; Start 11/11/18 at 09:00 Lurasidone HCl (Latuda) 20 mg QHS PO Last administered on 11/11/18 21:39; Start 11/11/18 at 21:00 Metoprolol Tartrate (Lopressor) 25 mg BID PO Last administered on 11/12/18 08: 24; Start 11/10/18 at 23:00 Potassium Chloride (Klor-Con) 20 meq BID PO Last administered on 11/12/18 08:23 ; Start 11/10/18 at 23:00 Pregabalin (Lyrica) 50 mg BID PO Last administered on 11/12/18 08:31; Start at 23:00 Benztropine Mesylate (Cogentin) 1 mg BID PO Last administered on 11/12/18 08:31 ; Start 11/10/18 at 23:00 Divalproex Sodium (Depakote) 500 mg BID PO Last administered on 11/12/18 08:24 ; Start 11/10/18 at 23:00 Levothyroxine Sodium (Synthroid) 25 mcg DAILY06 PO Last administered on 06:47; Start 11/11/18 at 06:00; Stop 11/12/18 at 05:59; Status DC Montelukast Sodium (Singulair) 10 mg QHS PO Last administered on 11/11/18 21:38 ; Start 11/10/18 at 23:00 Olanzapine (ZyPREXA) 15 mg QHS PO Last administered on 11/11/18 21:41; Start at 23:00 Pantoprazole Sodium (Protonix) 40 mg DAILYAC PO Last administered on 11/12/18 08:22; Start 11/11/18 at 07:30 Quetiapine Fumarate (SEROquel) 100 mg QHS PO Last administered on 11/11/18 21: 40; Start 11/10/18 at 23:00 Topiramate (Topamax) 25 mg BID PO Last administered on 11/12/18 08:23; Start at 09:00 Non-Formulary Medication (Warfarin Sodium ) 1 tab DAILY PO ; Start 11/11/18 at 09 :00; Status UNV Warfarin Sodium (Coumadin Per Physician) 1 each PRN DAILY PRN MC SEE COMMENTS Last administered on 11/11/18at 09:00; Start 11/10/18 at 23:00; Stop 11/11/18 at 10 :19; Status DC Warfarin Sodium (Coumadin) 5 mg 1X WARF ONCE PO Last administered on at 23:13; Start 11/10/18 at 23:00; Stop 11/10/18 at 23:01; Status DC Warfarin Sodium (Coumadin) 5 mg DAILY16 PO Last administered on 11/11/18at 17:19 ; Start 11/11/18 at 16:00 Tramadol HCl (Ultram) 50 mg PRN BID PRN PO PAIN Last administered on 11/11/18at 10:36; Start 11/11/18 at 10:15; Stop 11/12/18 at 12:03; Status DC Warfarin Sodium (Coumadin Per Pharmacy) 1 each PRN DAILY PRN MC SEE COMMENTS Last administered on 11/11/18at 12:50; Start 11/11/18 at 10:15 Enoxaparin Sodium (Lovenox 100mg Syringe) 100 mg Q12HR SQ Last administered on 11/12/18at 08:25; Start 11/11/18 at 10:30 Colestipol HCl (Colestid) 1 gm TID@1000,1400,2200 PO Last administered on at 22:28; Start 11/11/18 at 14:00; Stop 11/12/18 at 10:05; Status DC Oxycodone/ Acetaminophen (Percocet 5/325) 1 tab PRN Q6HRS PRN PO PAIN Last administered on 11/11/18at 14:55; Start 11/11/18 at 14:45; Stop 11/12/18 at 11:57; Status DC Levothyroxine Sodium (Synthroid) 25 mcg DAILYAC PO Last administered on at 08:22; Start 11/12/18 at 07:30; Stop 11/12/18 at 10:06; Status DC Colestipol HCl (Colestid) 1 gm TID@0800,1300,2000 PO ; Start 11/12/18 at 13:00; Stop 11/12/18 at 13:00; Status DC Levothyroxine Sodium (Synthroid) 25 mcg DAILY06 PO ; Start 11/13/18 at 06:00 Acetaminophen (Tylenol) 650 mg PRN Q6HRS PRN PO PAIN; Start 11/12/18 at 12:00 Active Scripts Active Synthroid (Levothyroxine Sodium) 25 Mcg Tablet 25 Mcg PO DAILY07 30 Days Atorvastatin Calcium 10 Mg Tablet 10 Mg PO QHS Reported [place] 5-325 Tablet (Acetaminophen/Hydrocodone Bitart) 1 Each Tablet 1 Tab PO PRN BID PRN Baclofen 10 Mg Tablet 1 Tab PO TID Divalproex Sodium 500 Mg Tablet.dr 1 Tab PO BID Seroquel (Quetiapine Fumarate) 100 Mg Tablet 1 Tab PO QHS Isosorbide Mononitrate Er (Isosorbide Mononitrate) 30 Mg Tab.er.24h 1 Tab PO DAILY Topiramate 25 Mg Tablet 1 Tab PO BID Warfarin Sodium 5 Mg Tablet 1 Tab PO DAILY Furosemide 40 Mg Tablet 1 Tab PO DAILY Latuda (Lurasidone Hcl) 40 Mg Tablet 20 Mg PO QHS Singulair Tablet (Montelukast Sodium) 10 Mg Tablet 1 Tab PO HS Zyprexa (Olanzapine) 15 Mg Tablet 1 Tab PO QHS Fluoxetine Hcl 20 Mg Capsule 1 Cap PO DAILY Lyrica (Pregabalin) 50 Mg Capsule 1 Cap PO BID Metoprolol Tartrate 25 Mg Tablet 1 Tab PO BID Lisinopril 20 Mg Tablet 1 Tab PO DAILY Omeprazole 40 Mg Capsule.dr 1 Cap PO DAILY Klor-Con M20 (Potassium Chloride) 20 Meq Tab.er.prt 1 Tab PO BID Benztropine Mesylate 1 Mg Tablet 1 Tab PO BID Fluticasone Propionate Nasal [place] (Fluticasone Propionate) 16 Gm [place].susp 2 Sprays NS BID for seasonal allergies Vitals/I & O Vital Sign - Last 24 Hours 11/11/18 11/11/18 11/11/18 11/11/18 14:55 15:00 16:00 19:10 Temp 96.8 97.7 96.8 97.7 Pulse 65 58 Resp 18 18 16 B/P (MAP) 130/54 (79) 116/66 (83) Pulse Ox 96 96 96 91 O2 Delivery Room Air Room Air Room Air Room Air 11/11/18 11/11/18 11/11/18 11/12/18 20:00 21:00 23:07 03:45 Temp 97.9 97.9 97.9 97.9 Pulse 58 60 60 Resp 18 17 B/P (MAP) 101/57 101/57 (72) 118/55 (76) Pulse Ox 94 94 O2 Delivery Room Air Room Air Room Air 11/12/18 11/12/18 11/12/18 11/12/18 07:00 08:00 08:22 08:23 Temp 97.1 97.1 Pulse 96 96 96 Resp 16 B/P (MAP) 136/90 (105) 136/90 136/90 Pulse Ox 96 O2 Delivery Room Air Room Air 11/12/18 11/12/18 08:24 11:07 Temp 97.4 97.4 Pulse 96 60 Resp 20 B/P (MAP) 136/90 143/73 (96) Pulse Ox 95 O2 Delivery Room Air Intake and Output 11/11/18 11/11/18 11/12/18 15:00 23:00 07:00 Intake Total 250 ml Output Total 800 ml 250 ml Balance -800 ml -250 ml 250 ml DAT MIMS MD Nov 12, 2018 12:33
[2018-11-12] MEDS ORDERED: COLESTIPOL HCL 1 GM TABLET PO SCH (13:00)
--- NOTE | 2018-11-12 13:29 | NUR ---
Pharmacy Warfarin Dosing Note S:Pharmacy consulted to assist with anticoagulation therapy started with target INR: 2.5 - 3.5 O:RHETT HERNANDEZ is a 58 year old F with Atrial Fibrillation Mechanical Aortic Valve LABS: Last INR: 1.4 Last HGB: 12.1 Last HCT: 36.5 Last PLT: 158 Last dose of 5 mg given on 11/11/18 at 1719 Previous Regimen: 5MG DAILY Vitamin K given: Drug Interaction Changes: Ongoing Drug Interactions: A:INR of 1.4 is below desired range. Target range for this patient is: 2.5 - 3.5 P: Warfarin dose: 7.5 mg Today at 1600 Bridge Therapy: None Next INR due TOMORROW. Pharmacy anticoagulation service will continue to follow. GERONIMO NOEL [facility], 11/12/18 [id number]
--- NOTE | 2018-11-12 14:25 | PDOC ---
PROGRESS NOTES Assessment Assessment Seizure. Syncopal spells. Metabolic encephalopathy. Confusion. PAFib. CAD. OH, Hx. PVCs. HTN. HLD. Aortic valve replacement. Cardiomegaly. Hypothyroidism. Obesity. Cognitive and intellectual impairment. RECOMMENDATIONS/PLAN: Continue Topamax home regimen 25 mg bid. patient declined titration up due to concerns of cognitive side effects. Increase Depakote to 750 mg am and 500 mg pm. Continue Lipitor HS. She has been treated with Coumadin par Cardiology, but PT/INR low. EEG on 11/11/18: The posterior dominant rhythm is mildly slow for age. Mild encephalopathy. HISTORY OF THE PRESENT ILLNESS: This is a 58 -y-old female patient was was admitted for complains of passing out episodes several times on 11/10/18. Her was sitting by her in the casino playing trey slots when she suddenly drifted in and out for few seconds with eyes closing and opening. This is the same as when she had seizures in the past that did involve convulsion. No incontinence episodes. She did again for few seconds after then on the 3rd time she just tipped toward the slot machine but no fall and was not responding to her . She did this again heading home in the car. She stated she had relative frequent passing out episodes in this past week. She stated she had a couple of passing spells lasting for a few seconds w/o postictal state on 11/11/18. PAST MEDICAL HISTORY Past Medical History Cardiovascular: CAD, HTN, Hyperlipidemia, Syncope Pulmonary: Asthma, COPD Neuro: seizures, cognitive delay GI: GERD, GI bleed, colitis, gastroparesis Heme/Onc: No pertinent hx Psych: Anxiety, Bipolar, Depression, Schizophrenia, Other (narcolepsy) Musculoskeletal: Osteoarthritis, lower back injury Infectious disease: No pertinent hx ENT: No pertinent hx Renal/: No pertinent hx Endocrine: No pertinent hx Dermatology: No pertinent hx PAST SURGICAL HISTORY Cholecystectomy, Hysterectomy, Other (mechanical aortic valve), PPM, Multiple PCIs with stents FAMILY HISTORY Diabetes ALLERGY: Coded Allergies: Sulfa (Sulfonamide Antibiotics) (Verified Allergy, Severe, rash, tongue swelling, 04/15/15) Iodinated Contrast- Oral and IV Dye (Verified Allergy, Intermediate, rash , 04/15/15) Penicillins (Verified Allergy, Intermediate, Hives, 04/15/15) aspirin (Verified Allergy, Intermediate, Hives, 04/15/15) codeine (Verified Allergy, Intermediate, Hives; SEE COMMENT, 06/08/15) PT REPORTS TAKING LORTAB WITHOUT COMPLICATIONS, PER ED MD diphenhydramine HCl (Verified Allergy, Intermediate, rash, 12/19/13) latex (Verified Allergy, Intermediate, Rash, 12/18/13) MEDICATIONS: Refer to MAR SOCIAL HISTORY: Lives at home. Denies current smoking, drinking, and illicit drug use. REVIEW OF SYSTEMS: Constitutional: Obese. Head: No recent traumatic brain or head injury. Skin: No edema, or rash. Ear: No infection. Eyes: No vision loss or color blindness. Nose: No bleeding or purulent discharges. Hearing: No hearing decrease. Neck: No injury. Breast: No history of cancer, masses,or discharges. Cardiac: OH, PAFib, Pacemaker Placement, HTN, HLD. Pulmonary: No COPD. GI: No GI ulcer, GI bleeding. Urinary/genital: UTI. Endocrinologic: Hypothyroidism, obesity. Skeletomuscular: No muscular atrophy, deformity. Neurological: see HP. Psychiatric: Denies drug use/abuse. Otherwise, not [id number] review of systems. PHYSICAL EXAMINATION: General appearance is in subacute distress. HEENT: Normocephalic and nontraumatic. Eyes, nose, ears, and throat are unremarkable. Neck is supple. No lymphadenopathy. No crepitus. Cardiovascular: S1, S2, regular rate and rhythm. Pulmonary: Clear to auscultation bilaterally. Abdomen: Bowel sounds are positive. Extremities: No rash, lesions, or edema. No restriction of range of motion NEUROLOGICAL EXAMINATION: Awake. Thanking processes are very slow. Not fully oriented to time, place but knew person. PERRL. EOMI. CN: no focal findings. Muscle tone: within normal. Muscle strength: 5- DTR: 1+ Plantar reflex: Flexor response bilaterally Gait: Able to walk with a walker. Sensory exam: no abnormal findings. No acute cerebellar signs elicited. F-T-N test fine. Objective Objective Vital Signs Date Time Temp Pulse Resp B/P (MAP) Pulse Ox O2 Delivery O2 Flow Rate FiO2 11/12/18 11:07 97.4 60 20 143/73 (96) 95 Room Air 97.4 Intake and Output 11/12/18 07:00 Intake Total 250 ml Output Total 1050 ml Balance -800 ml Intake Oral 250 ml Output Urine Total 1050 ml Vitals Signs Vitals VS - Last 72 Hours, by Label Date Time Temp Pulse Resp B/P (MAP) Pulse Ox O2 Delivery O2 Flow Rate FiO2 11/12/18 11:07 97.4 60 20 143/73 (96) 95 Room Air 97.4 11/12/18 08:24 96 136/90 11/12/18 08:23 96 136/90 11/12/18 08:22 96 136/90 11/12/18 08:00 Room Air 11/12/18 07:00 97.1 96 16 136/90 (105) 96 Room Air 97.1 11/12/18 03:45 97.9 60 17 118/55 (76) 94 Room Air 97.9 11/11/18 23:07 97.9 60 18 101/57 (72) 94 Room Air 97.9 11/11/18 21:00 58 101/57 11/11/18 20:00 Room Air 11/11/18 19:10 97.7 58 16 116/66 (83) 91 Room Air 97.7 11/11/18 16:00 18 96 Room Air 11/11/18 15:00 96.8 65 130/54 (79) 96 Room Air 96.8 11/11/18 14:55 18 96 Room Air 11/11/18 11:36 18 96 Room Air 11/11/18 11:00 96.7 60 142/71 (94) 96 Room Air 96.7 11/11/18 11:00 72 182/81 (114) 11/11/18 11:00 61 170/83 (112) 11/11/18 10:36 18 96 Room Air 11/11/18 10:35 62 120/72 11/11/18 10:34 62 120/72 11/11/18 10:33 62 120/72 11/11/18 07:30 Room Air 11/11/18 07:00 96.7 62 18 120/72 (88) 96 Room Air 96.7 Laboratory Laboratory Laboratory Tests Test 11/11/18 18:00 11/12/18 04:00 Valproic Acid (Depakene) Level 48 mcg/mL (50-100) Valproic Acid Last Dose Date 11/11/18 Valproic Acid Last Dose Time 0800 Prothrombin Time 17.3 SEC (11.7-14.0) Prothromb Time International Ratio 1.4 (0.8-1.1) Medication Medications Current Medications Acetaminophen (Tylenol) 650 mg PRN Q6HRS PRN PO PAIN; Start 11/12/18 at 12:00 Colestipol HCl (Colestid) 1 gm TID@0800,1300,2000 PO ; Start 11/12/18 at 13:00; Stop 11/12/18 at 13:00; Status DC Furosemide (Lasix) 40 mg QODAY PO Last administered on 11/12/18at 08:23; Start at 09:00 Levothyroxine Sodium (Synthroid) 25 mcg DAILY06 PO ; Start 11/13/18 at 06:00 Levothyroxine Sodium (Synthroid) 25 mcg DAILYAC PO Last administered on at 08:22; Start 11/12/18 at 07:30; Stop 11/12/18 at 10:06; Status DC Lurasidone HCl (Latuda) 20 mg QHS PO Last administered on 11/11/18at 21:39; Start 11/11/18 at 21:00 Oxycodone/ Acetaminophen (Percocet 5/325) 1 tab PRN Q6HRS PRN PO PAIN Last administered on 11/11/18at 14:55; Start 11/11/18 at 14:45; Stop 11/12/18 at 11:57; Status DC Warfarin Sodium (Coumadin) 5 mg DAILY16 PO Last administered on 11/11/18at 17:19 ; Start 11/11/18 at 16:00; Stop 11/12/18 at 13:28; Status DC Warfarin Sodium (Coumadin) 5 mg DAILY16 PO ; Start 11/13/18 at 16:00 Warfarin Sodium (Coumadin) 7.5 mg 1X WARF ONCE PO ; Start 11/12/18 at 16:00; Stop 11/12/18 at 16:01 Comment Review of Relevant I have reviewed the following items yonathan (where applicable) has been applied. GENA LOTT MD Nov 12, 2018 14:25
[2018-11-12 14:50] VITALS: BP 116/73
[2018-11-12] MEDS ORDERED: WARFARIN 7.5 MG TABLET. PO ONE (16:00)
[2018-11-12 18:13] VITALS: BP 144/87
[2018-11-12] MEDS: ATORVASTATIN CALCIUM 10 MG TABLET. PO SCH (20:42)
[2018-11-12] MEDS: OLANZapine 5 MG TABLET PO SCH (20:42)
[2018-11-12] MEDS: MONTELUKAST SODIUM 10 MG TABLET. PO SCH (20:42)
[2018-11-12] MEDS: ACETAMINOPHEN 325 MG TABLET. PO PRN (20:42)
[2018-11-12] MEDS: LURASIDONE 40 MG TABLET. PO SCH (20:44)
[2018-11-12] MEDS: QUEtiapine 100 MG TABLET. PO SCH (20:44)
[2018-11-12 22:58] VITALS: BP 132/75
[2018-11-13 03:00] VITALS: BP 140/75
[2018-11-13 05:13] LABS: PROTHROMBIN TIME PATIENT 24.3 SEC (11.7-14.0)
[2018-11-13] MEDS: LEVOTHYROXINE 25 MCG TABLET. PO SCH (06:22)
[2018-11-13 07:20] VITALS: BP 145/92
[2018-11-13] MEDS: TOPIRAMATE 25 MG TABLET. PO SCH ×2 (08:04→20:49)
[2018-11-13] MEDS: POTASSIUM CHLORIDE 20 MEQ TABLET.ER. PO SCH ×2 (08:04→20:48)
[2018-11-13] MEDS: PANTOPRAZOLE 40 MG TABLET.DR. PO SCH (08:05)
[2018-11-13] MEDS: LISINOPRIL 20 MG TABLET PO SCH (08:05)
[2018-11-13] MEDS: METOPROLOL TART IMMED RELEASE 25 MG TABLET. PO SCH ×2 (08:05→20:50)
[2018-11-13] MEDS: BENZTROPINE MESYLATE 1 MG TABLET. PO SCH ×2 (08:05→20:49)
[2018-11-13] MEDS: PREGABALIN 50 MG CAPSULE PO SCH ×2 (08:05→20:48)
[2018-11-13] MEDS: FLUoxetine HCL 20 MG CAPSULE PO SCH (08:05)
[2018-11-13] MEDS: DIVALPROEX DELAYED RELEASE 250 MG TABLET.DR. PO SCH (08:06)
[2018-11-13] MEDS: ISOSORBIDE MONONITRATE ER 30 MG TAB.ER.24H PO SCH (08:06)
[2018-11-13] MEDS: FLUTICASONE 50MCG/NASAL SPRAY 16GM BOTTLE. NS SCH ×2 (08:12→20:47)
--- NOTE | 2018-11-13 09:09 | PDOC ---
PROGRESS NOTES Subjective Subjective Patient seen and examined Objective Objective Vital Signs Date Time Temp Pulse Resp B/P (MAP) Pulse Ox O2 Delivery O2 Flow Rate FiO2 11/13/18 08:06 60 145/92 11/13/18 08:00 Room Air 11/13/18 07:20 97.6 14 96 97.6 Intake and Output 11/13/18 07:00 Intake Total 150 ml Output Total 3140 ml Balance -2990 ml Intake Oral 150 ml Output Urine Total 3140 ml Physical Exam Abdomen: Normal bowel sounds Heart: Regular rate General: No acute distress Lungs: Clear to auscultation Assessment Assessment Possible seizure. Neurology workup in progress. History of a seizure disorder as well as schizophrenia and bipolar disorder. Telemetry shows a stable rhythm. Coronary artery disease. Previous stenting. No acute ischemic changes. Continue medical treatment. Stress testing 3 months ago showed no ischemia and an ejection fraction of 70%. Permanent pacemaker for sick sinus syndrome. Recent interrogation showed no significant arrhythmias. Aortic valve replacement with mechanical valve. Coumadin per anticoagulation. INR now 2.2. Colestipol discontinued. History of medical noncompliance with recent frequent hospitalizations. Controlled hypertension. Statins for hyperlipidemia. Comment Review of Relevant I have reviewed the following items yonathan (where applicable) has been applied. Labs Laboratory Tests Test 11/11/18 18:00 11/12/18 04:00 11/13/18 04:15 Valproic Acid (Depakene) Level 48 mcg/mL (50-100) Valproic Acid Last Dose Date 11/11/18 Valproic Acid Last Dose Time 0800 Prothrombin Time 17.3 SEC (11.7-14.0) 24.3 SEC (11.7-14.0) Prothromb Time International Ratio 1.4 (0.8-1.1) 2.2 (0.8-1.1) Laboratory Tests Test 11/13/18 04:15 Prothrombin Time 24.3 SEC (11.7-14.0) Prothromb Time International Ratio 2.2 (0.8-1.1) Medications Current Medications Sodium Chloride 1,000 ml @ 1,000 mls/hr 1X ONCE IV Last administered on at 14:36; Start 11/10/18 at 14:00; Stop 11/10/18 at 14:59; Status DC Nitroglycerin (Nitrostat) 0.4 mg PRN Q5MIN PRN SL CHEST PAIN Last administered on 11/10/18at 14:50; Start 11/10/18 at 14:30 Nitroglycerin (Nitrostat) 0.4 mg STK-MED ONCE SL ; Start 11/10/18 at 14:31; Stop 11/10/18 at 14:32; Status DC Fentanyl Citrate (Fentanyl 2ml Vial) 50 mcg 1X ONCE IV Last administered on at 17:43; Start 11/10/18 at 17:30; Stop 11/10/18 at 17:31; Status DC Ondansetron HCl (Zofran) 4 mg PRN Q8HRS PRN IV NAUSEA/VOMITING; Start 11/10/18 at 18:45; Stop 11/11/18 at 18:44; Status DC Morphine Sulfate (Morphine Sulfate) 2 mg PRN Q2HR PRN IV PAIN Last administered on 11/10/18 23:16; Start 11/10/18 at 18:45; Stop 11/11/18 at 18:44 ; Status DC Atorvastatin Calcium (Lipitor) 10 mg QHS PO Last administered on 11/12/18 20:42 ; Start 11/10/18 at 23:00 Baclofen (Lioresal) 10 mg TID PO Last administered on 11/12/18 08:31; Start at 23:00; Stop 11/12/18 at 11:57; Status DC Colestipol HCl (Colestid) 1 gm TIDAC PO ; Start 11/11/18 at 07:30; Stop 11/11/18 at 11:55; Status DC Fluoxetine HCl (PROzac) 20 mg DAILY PO Last administered on 11/13/18 08:05; Start 11/11/18 at 09:00 Fluticasone Propionate (Flonase) 2 spray BID NS Last administered on 11/13/18 08:12; Start 11/11/18 at 09:00 Furosemide (Lasix) 40 mg QODAY PO Last administered on 11/12/18 08:23; Start at 09:00 Isosorbide Mononitrate (Imdur) 30 mg DAILY PO Last administered on 11/13/18 08: 06; Start 11/11/18 at 09:00 Lisinopril (Prinivil) 20 mg DAILY PO Last administered on 11/13/18 08:05; Start 11/11/18 at 09:00 Lurasidone HCl (Latuda) 20 mg QHS PO Last administered on 11/12/18 20:44; Start 11/11/18 at 21:00 Metoprolol Tartrate (Lopressor) 25 mg BID PO Last administered on 11/13/18 08: 05; Start 11/10/18 at 23:00 Potassium Chloride (Klor-Con) 20 meq BID PO Last administered on 11/13/18 08:04 ; Start 11/10/18 at 23:00 Pregabalin (Lyrica) 50 mg BID PO Last administered on 11/13/18 08:05; Start at 23:00 Benztropine Mesylate (Cogentin) 1 mg BID PO Last administered on 11/13/18 08:05 ; Start 11/10/18 at 23:00 Divalproex Sodium (Depakote) 500 mg BID PO Last administered on 11/12/18 08:24 ; Start 11/10/18 at 23:00; Stop 11/12/18 at 14:30; Status DC Levothyroxine Sodium (Synthroid) 25 mcg DAILY06 PO Last administered on 06:47; Start 11/11/18 at 06:00; Stop 11/12/18 at 05:59; Status DC Montelukast Sodium (Singulair) 10 mg QHS PO Last administered on 11/12/18 20:42 ; Start 11/10/18 at 23:00 Olanzapine (ZyPREXA) 15 mg QHS PO Last administered on 11/12/18 20:42; Start at 23:00 Pantoprazole Sodium (Protonix) 40 mg DAILYAC PO Last administered on 11/13/18 08:05; Start 11/11/18 at 07:30 Quetiapine Fumarate (SEROquel) 100 mg QHS PO Last administered on 11/12/18 20: 44; Start 11/10/18 at 23:00 Topiramate (Topamax) 25 mg BID PO Last administered on 11/13/18 08:04; Start at 09:00 Non-Formulary Medication (Warfarin Sodium ) 1 tab DAILY PO ; Start 11/11/18 at 09 :00; Status UNV Warfarin Sodium (Coumadin Per Physician) 1 each PRN DAILY PRN MC SEE COMMENTS Last administered on 11/11/18at 09:00; Start 11/10/18 at 23:00; Stop 11/11/18 at 10 :19; Status DC Warfarin Sodium (Coumadin) 5 mg 1X WARF ONCE PO Last administered on at 23:13; Start 11/10/18 at 23:00; Stop 11/10/18 at 23:01; Status DC Warfarin Sodium (Coumadin) 5 mg DAILY16 PO Last administered on 11/11/18at 17:19 ; Start 11/11/18 at 16:00; Stop 11/12/18 at 13:28; Status DC Tramadol HCl (Ultram) 50 mg PRN BID PRN PO PAIN Last administered on 11/11/18at 10:36; Start 11/11/18 at 10:15; Stop 11/12/18 at 12:03; Status DC Warfarin Sodium (Coumadin Per Pharmacy) 1 each PRN DAILY PRN MC SEE COMMENTS Last administered on 11/12/18at 13:31; Start 11/11/18 at 10:15 Enoxaparin Sodium (Lovenox 100mg Syringe) 100 mg Q12HR SQ Last administered on 11/13/18 08:06; Start 11/11/18 at 10:30 Colestipol HCl (Colestid) 1 gm TID@1000,1400,2200 PO Last administered on 22:28; Start 11/11/18 at 14:00; Stop 11/12/18 at 10:05; Status DC Oxycodone/ Acetaminophen (Percocet 5/325) 1 tab PRN Q6HRS PRN PO PAIN Last administered on 11/11/18at 14:55; Start 11/11/18 at 14:45; Stop 11/12/18 at 11:57; Status DC Levothyroxine Sodium (Synthroid) 25 mcg DAILYAC PO Last administered on 08:22; Start 11/12/18 at 07:30; Stop 11/12/18 at 10:06; Status DC Colestipol HCl (Colestid) 1 gm TID@0800,1300,2000 PO ; Start 11/12/18 at 13:00; Stop 11/12/18 at 13:00; Status DC Levothyroxine Sodium (Synthroid) 25 mcg DAILY06 PO Last administered on at 06:22; Start 11/13/18 at 06:00 Acetaminophen (Tylenol) 650 mg PRN Q6HRS PRN PO PAIN Last administered on at 20:42; Start 11/12/18 at 12:00 Warfarin Sodium (Coumadin) 5 mg DAILY16 PO ; Start 11/13/18 at 16:00 Warfarin Sodium (Coumadin) 7.5 mg 1X WARF ONCE PO Last administered on at 16:33; Start 11/12/18 at 16:00; Stop 11/12/18 at 16:01; Status DC Divalproex Sodium (Depakote) 750 mg DAILY PO Last administered on 11/13/18at 08: 06; Start 11/13/18 at 09:00 Divalproex Sodium (Depakote) 500 mg QHS PO Last administered on 11/12/18at 20:45 ; Start 11/12/18 at 21:00 Active Scripts Active Synthroid (Levothyroxine Sodium) 25 Mcg Tablet 25 Mcg PO DAILY07 30 Days Atorvastatin Calcium 10 Mg Tablet 10 Mg PO QHS Reported [place] 5-325 Tablet (Acetaminophen/Hydrocodone Bitart) 1 Each Tablet 1 Tab PO PRN BID PRN Baclofen 10 Mg Tablet 1 Tab PO TID Divalproex Sodium 500 Mg Tablet.dr 1 Tab PO BID Seroquel (Quetiapine Fumarate) 100 Mg Tablet 1 Tab PO QHS Isosorbide Mononitrate Er (Isosorbide Mononitrate) 30 Mg Tab.er.24h 1 Tab PO DAILY Topiramate 25 Mg Tablet 1 Tab PO BID Warfarin Sodium 5 Mg Tablet 1 Tab PO DAILY Furosemide 40 Mg Tablet 1 Tab PO DAILY Latuda (Lurasidone Hcl) 40 Mg Tablet 20 Mg PO QHS Singulair Tablet (Montelukast Sodium) 10 Mg Tablet 1 Tab PO HS Zyprexa (Olanzapine) 15 Mg Tablet 1 Tab PO QHS Fluoxetine Hcl 20 Mg Capsule 1 Cap PO DAILY Lyrica (Pregabalin) 50 Mg Capsule 1 Cap PO BID Metoprolol Tartrate 25 Mg Tablet 1 Tab PO BID Lisinopril 20 Mg Tablet 1 Tab PO DAILY Omeprazole 40 Mg Capsule.dr 1 Cap PO DAILY Klor-Con M20 (Potassium Chloride) 20 Meq Tab.er.prt 1 Tab PO BID Benztropine Mesylate 1 Mg Tablet 1 Tab PO BID Fluticasone Propionate Nasal [place] (Fluticasone Propionate) 16 Gm [place].susp 2 Sprays NS BID for seasonal allergies Vitals/I & O Vital Sign - Last 24 Hours 11/12/18 11/12/18 11/12/18 11/12/18 11:07 14:50 18:13 19:53 Temp 97.4 98.2 97.5 97.4 98.2 97.5 Pulse 60 60 64 Resp 20 20 20 B/P (MAP) 143/73 (96) 116/73 (87) 144/87 (106) Pulse Ox 95 92 93 O2 Delivery Room Air Room Air Room Air Room Air 11/12/18 11/12/18 11/13/18 11/13/18 20:48 22:58 03:00 07:20 Temp 98.1 97.4 97.6 98.1 97.4 97.6 Pulse 64 60 60 60 Resp 18 20 14 B/P (MAP) 144/87 132/75 (94) 140/75 (96) 145/92 (109) Pulse Ox 93 93 96 O2 Delivery Room Air Room Air Room Air 11/13/18 11/13/18 11/13/18 11/13/18 08:00 08:05 08:05 08:06 Pulse 60 60 60 B/P (MAP) 145/92 145/92 145/92 O2 Delivery Room Air Intake and Output 11/12/18 11/12/18 11/13/18 15:00 23:00 07:00 Intake Total 100 ml 50 ml 0 ml Output Total 650 ml 2240 ml 250 ml Balance -550 ml -2190 ml -250 ml DAT MIMS MD Nov 13, 2018 09:09
--- NOTE | 2018-11-13 09:21 | NUR ---
Pharmacy Warfarin Dosing Note S:Pharmacy consulted to assist with anticoagulation therapy started with target INR: 2 -3 O:RHETT HERNANDEZ is a 58 year old F with Atrial Fibrillation Mechanical Aortic Valve LABS: Last INR: 2.2 Last HGB: 12.1 Last HCT: 36.5 Last PLT: 158 Last dose of 7.5 mg given on 11/12/18 at 1719 Previous Regimen: 5MG DAILY Vitamin K given: Drug Interaction Changes: Ongoing Drug Interactions: COLESTIPOL (-/) A:INR of 2.2 is within desired range. Target range for this patient is: 2 -3 P: Warfarin dose: 4 mg Today at 1600 Bridge Therapy: Enoxaparin 1 mg/kg q12h Next INR due tomorrow. Pharmacy anticoagulation service will continue to follow. GERONIMO NOEL RPH, 11/13/18 [id number]
[2018-11-13 11:00] VITALS: BP 126/63
--- NOTE | 2018-11-13 11:09 | PDOC ---
PROGRESS NOTES Subjective Subjective pt feels better Objective Objective Vital Signs Date Time Temp Pulse Resp B/P (MAP) Pulse Ox O2 Delivery O2 Flow Rate FiO2 11/13/18 08:06 60 145/92 11/13/18 08:00 Room Air 11/13/18 07:20 97.6 14 96 97.6 Intake and Output 11/13/18 07:00 Intake Total 150 ml Output Total 3140 ml Balance -2990 ml Intake Oral 150 ml Output Urine Total 3140 ml Physical Exam Abdomen: Normal bowel sounds Heart: Regular rate Extremities: No cyanosis, No edema General: No acute distress HEENT: Atraumatic, Mucous membr. 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 Noncompliant with seizure medications. Mechanical aortic valve replacement, on Coumadin. subtherapeutic Bipolar.disorder Plan:inc Depakote dose EEG neg for seizures depokate levels 48 low. d/c muscle relaxants and narcotic meds. d/c tramadol.cut down some psychiatric meds pt/ot/rehab inr 2.4 low ,d/c Lovenox. SNU screen socal service consult Comment Review of Relevant I have reviewed the following items yonathan (where applicable) has been applied. Labs Laboratory Tests Test 11/13/18 04:15 Prothrombin Time 24.3 SEC (11.7-14.0) Prothromb Time International Ratio 2.2 (0.8-1.1) Medications Current Medications Acetaminophen (Tylenol) 650 mg PRN Q6HRS PRN PO PAIN Last administered on at 20:42; Start 11/12/18 at 12:00 Colestipol HCl (Colestid) 1 gm TID@0800,1300,2000 PO ; Start 11/12/18 at 13:00; Stop 11/12/18 at 13:00; Status DC Divalproex Sodium (Depakote) 500 mg QHS PO Last administered on 11/12/18at 20:45 ; Start 11/12/18 at 21:00 Divalproex Sodium (Depakote) 750 mg DAILY PO Last administered on 11/13/18at 08: 06; Start 11/13/18 at 09:00 Levothyroxine Sodium (Synthroid) 25 mcg DAILY06 PO Last administered on at 06:22; Start 11/13/18 at 06:00 Warfarin Sodium (Coumadin) 4 mg 1X WARF ONCE PO ; Start 11/13/18 at 16:00; Stop 11/13/18 at 16:01 Warfarin Sodium (Coumadin) 5 mg DAILY16 PO ; Start 11/13/18 at 16:00; Stop at 16:00; Status DC Warfarin Sodium (Coumadin) 7.5 mg 1X WARF ONCE PO Last administered on at 16:33; Start 11/12/18 at 16:00; Stop 11/12/18 at 16:01; Status DC Vitals/I & O Vital Sign - Last 24 Hours 11/12/18 11/12/18 11/12/18 11/12/18 11:07 14:50 18:13 19:53 Temp 97.4 98.2 97.5 97.4 98.2 97.5 Pulse 60 60 64 Resp 20 20 20 B/P (MAP) 143/73 (96) 116/73 (87) 144/87 (106) Pulse Ox 95 92 93 O2 Delivery Room Air Room Air Room Air Room Air 11/12/18 11/12/18 11/13/18 11/13/18 20:48 22:58 03:00 07:20 Temp 98.1 97.4 97.6 98.1 97.4 97.6 Pulse 64 60 60 60 Resp 18 20 14 B/P (MAP) 144/87 132/75 (94) 140/75 (96) 145/92 (109) Pulse Ox 93 93 96 O2 Delivery Room Air Room Air Room Air 11/13/18 11/13/18 11/13/18 11/13/18 08:00 08:05 08:05 08:06 Pulse 60 60 60 B/P (MAP) 145/92 145/92 145/92 O2 Delivery Room Air Intake and Output 11/12/18 11/12/18 11/13/18 15:00 23:00 07:00 Intake Total 100 ml 50 ml 0 ml Output Total 650 ml 2240 ml 250 ml Balance -550 ml -2190 ml -250 ml NICOLE SMITH MD Nov 13, 2018 11:09
--- NOTE | 2018-11-13 14:01 | PDOC ---
PROGRESS NOTES Assessment Assessment Seizure. Syncopal spells. Metabolic encephalopathy. Confusion. PAFib. CAD. NH, Hx. PVCs. HTN. HLD. Aortic valve replacement. Cardiomegaly. Hypothyroidism. Obesity. Cognitive and intellectual impairment. RECOMMENDATIONS/PLAN: Continue Topamax, 25 mg am, increase PM dose to 50 mg HS. Increase Depakote to 750 mg am and 500 mg pm. Continue Lipitor HS. FU with PCP. FU with Dr. Quarles in neurology. EEG on 11/11/18: The posterior dominant rhythm is mildly slow for age. Mild encephalopathy. HISTORY OF THE PRESENT ILLNESS: This is a 58 -y-old female patient was was admitted for complains of passing out episodes several times on 11/10/18. Her was sitting by her in the casino playing trey slots when she suddenly drifted in and out for few seconds with eyes closing and opening. This is the same as when she had seizures in the past that did involve convulsion. No incontinence episodes. She did again for few seconds after then on the 3rd time she just tipped toward the slot machine but no fall and was not responding to her . She did this again heading home in the car. She stated she had relative frequent passing out episodes in this past week. She stated she had a couple of passing spells lasting for a few seconds w/o postictal state on 11/11/18. PAST MEDICAL HISTORY Past Medical History Cardiovascular: CAD, HTN, Hyperlipidemia, Syncope Pulmonary: Asthma, COPD Neuro: seizures, cognitive delay GI: GERD, GI bleed, colitis, gastroparesis Heme/Onc: No pertinent hx Psych: Anxiety, Bipolar, Depression, Schizophrenia, Other (narcolepsy) Musculoskeletal: Osteoarthritis, lower back injury Infectious disease: No pertinent hx ENT: No pertinent hx Renal/: No pertinent hx Endocrine: No pertinent hx Dermatology: No pertinent hx PAST SURGICAL HISTORY Cholecystectomy, Hysterectomy, Other (mechanical aortic valve), PPM, Multiple PCIs with stents FAMILY HISTORY Diabetes ALLERGY: Coded Allergies: Sulfa (Sulfonamide Antibiotics) (Verified Allergy, Severe, rash, tongue swelling, 04/15/15) Iodinated Contrast- Oral and IV Dye (Verified Allergy, Intermediate, rash , 04/15/15) Penicillins (Verified Allergy, Intermediate, Hives, 04/15/15) aspirin (Verified Allergy, Intermediate, Hives, 04/15/15) codeine (Verified Allergy, Intermediate, Hives; SEE COMMENT, 06/08/15) PT REPORTS TAKING LORTAB WITHOUT COMPLICATIONS, PER ED MD diphenhydramine HCl (Verified Allergy, Intermediate, rash, 12/19/13) latex (Verified Allergy, Intermediate, Rash, 12/18/13) MEDICATIONS: Refer to MAR SOCIAL HISTORY: Lives at home. Denies current smoking, drinking, and illicit drug use. REVIEW OF SYSTEMS: Constitutional: Obese. Head: No recent traumatic brain or head injury. Skin: No edema, or rash. Ear: No infection. Eyes: No vision loss or color blindness. Nose: No bleeding or purulent discharges. Hearing: No hearing decrease. Neck: No injury. Breast: No history of cancer, masses,or discharges. Cardiac: NH, PAFib, Pacemaker Placement, HTN, HLD. Pulmonary: No COPD. GI: No GI ulcer, GI bleeding. Urinary/genital: UTI. Endocrinologic: Hypothyroidism, obesity. Skeletomuscular: No muscular atrophy, deformity. Neurological: see HP. Psychiatric: Denies drug use/abuse. Otherwise, not [id number] review of systems. PHYSICAL EXAMINATION: General appearance is in no acute distress. HEENT: Normocephalic and nontraumatic. Eyes, nose, ears, and throat are unremarkable. Neck is supple. No lymphadenopathy. No crepitus. Cardiovascular: S1, S2, regular rate and rhythm. Pulmonary: Clear to auscultation bilaterally. Abdomen: Bowel sounds are positive. Extremities: No rash, lesions, or edema. No restriction of range of motion NEUROLOGICAL EXAMINATION: Awake. Thanking processes are very slow. Not fully oriented to time, but knew place and person. PERRL. EOMI. CN: no focal findings. Muscle tone: within normal. Muscle strength: 5- DTR: 1+ Plantar reflex: Flexor response bilaterally Gait: Able to walk with a walker. Sensory exam: no abnormal findings. No acute cerebellar signs elicited. F-T-N test fine. Objective Objective Vital Signs Date Time Temp Pulse Resp B/P (MAP) Pulse Ox O2 Delivery O2 Flow Rate FiO2 11/13/18 11:00 98.2 64 16 126/63 (84) 94 Room Air 98.2 Intake and Output 11/13/18 07:00 Intake Total 150 ml Output Total 3140 ml Balance -2990 ml Intake Oral 150 ml Output Urine Total 3140 ml Vitals Signs Vitals VS - Last 72 Hours, by Label Date Time Temp Pulse Resp B/P (MAP) Pulse Ox O2 Delivery O2 Flow Rate FiO2 11/13/18 11:00 98.2 64 16 126/63 (84) 94 Room Air 98.2 11/13/18 08:06 60 145/92 11/13/18 08:05 60 145/92 11/13/18 08:05 60 145/92 11/13/18 08:00 Room Air 11/13/18 07:20 97.6 60 14 145/92 (109) 96 Room Air 97.6 11/13/18 03:00 97.4 60 20 140/75 (96) 93 Room Air 97.4 11/12/18 22:58 98.1 60 18 132/75 (94) 93 Room Air 98.1 11/12/18 20:48 64 144/87 11/12/18 19:53 Room Air 11/12/18 18:13 97.5 64 20 144/87 (106) 93 Room Air 97.5 11/12/18 14:50 98.2 60 20 116/73 (87) 92 Room Air 98.2 11/12/18 11:07 97.4 60 20 143/73 (96) 95 Room Air 97.4 11/12/18 08:24 96 136/90 11/12/18 08:23 96 136/90 11/12/18 08:22 96 136/90 11/12/18 08:00 Room Air 11/12/18 07:00 97.1 96 16 136/90 (105) 96 Room Air 97.1 Laboratory Laboratory Laboratory Tests Test 11/13/18 04:15 Prothrombin Time 24.3 SEC (11.7-14.0) Prothromb Time International Ratio 2.2 (0.8-1.1) Medication Medications Current Medications Divalproex Sodium (Depakote) 500 mg QHS PO Last administered on 11/12/18at 20:45 ; Start 11/12/18 at 21:00 Divalproex Sodium (Depakote) 750 mg DAILY PO Last administered on 11/13/18at 08: 06; Start 11/13/18 at 09:00 Levothyroxine Sodium (Synthroid) 25 mcg DAILY06 PO Last administered on at 06:22; Start 11/13/18 at 06:00 Warfarin Sodium (Coumadin) 4 mg 1X WARF ONCE PO ; Start 11/13/18 at 16:00; Stop 11/13/18 at 16:01 Warfarin Sodium (Coumadin) 5 mg DAILY16 PO ; Start 11/13/18 at 16:00; Stop at 16:00; Status DC Warfarin Sodium (Coumadin) 7.5 mg 1X WARF ONCE PO Last administered on at 16:33; Start 11/12/18 at 16:00; Stop 11/12/18 at 16:01; Status DC Comment Review of Relevant I have reviewed the following items yonathan (where applicable) has been applied. GENA LOTT MD Nov 13, 2018 14:01
[2018-11-13 15:00] VITALS: BP 130/67
[2018-11-13] MEDS ORDERED: WARFARIN 5 MG TABLET. PO SCH (16:00)
[2018-11-13] MEDS ORDERED: WARFARIN 4 MG TABLET. PO ONE (16:00)
[2018-11-13] MEDS ORDERED: ALBUTEROL SULFATE 2.5 MG/3 ML NEBU. NEB PRN (19:30)
[2018-11-13] MEDS: IPRATRPIUM/ALBUTEROL 0.5/2.5MG 3 ML NEBU. NEB SCH (19:40)
[2018-11-13 19:50] VITALS: BP 129/62
[2018-11-13] MEDS: MONTELUKAST SODIUM 10 MG TABLET. PO SCH (20:48)
[2018-11-13] MEDS: ATORVASTATIN CALCIUM 10 MG TABLET. PO SCH (20:48)
[2018-11-13] MEDS: LURASIDONE 40 MG TABLET. PO SCH (20:49)
[2018-11-13] MEDS: OLANZapine 5 MG TABLET PO SCH (20:49)
[2018-11-13] MEDS: DIVALPROEX DELAYED RELEASE 500 MG TABLET.DR. PO SCH (20:49)
[2018-11-13 22:45] VITALS: BP 145/72
[2018-11-14] MEDS ORDERED: DOPamine 400MG/250ML PREMIX 400 MG/250 ML BAG IV ONE (03:00)
[2018-11-14 03:40] VITALS: BP 165/76
[2018-11-14] MEDS: LEVOTHYROXINE 25 MCG TABLET. PO SCH (06:18)
[2018-11-14 07:22] LABS: PROTHROMBIN TIME PATIENT 24.3 SEC (11.7-14.0)
[2018-11-14 07:37] VITALS: BP 184/76
[2018-11-14] MEDS: IPRATRPIUM/ALBUTEROL 0.5/2.5MG 3 ML NEBU. NEB SCH ×5 (07:50→19:59)
[2018-11-14] MEDS: LISINOPRIL 20 MG TABLET PO SCH (07:59)
[2018-11-14] MEDS: FUROSEMIDE 40 MG TABLET. PO SCH (07:59)
[2018-11-14] MEDS: PREGABALIN 50 MG CAPSULE PO SCH ×2 (07:59→20:26)
[2018-11-14] MEDS: POTASSIUM CHLORIDE 20 MEQ TABLET.ER. PO SCH ×2 (07:59→20:26)
[2018-11-14] MEDS: DIVALPROEX DELAYED RELEASE 250 MG TABLET.DR. PO SCH (08:00)
[2018-11-14] MEDS: PANTOPRAZOLE 40 MG TABLET.DR. PO SCH (08:00)
[2018-11-14] MEDS: ISOSORBIDE MONONITRATE ER 30 MG TAB.ER.24H PO SCH (08:00)
[2018-11-14] MEDS: METOPROLOL TART IMMED RELEASE 25 MG TABLET. PO SCH ×2 (08:01→20:28)
[2018-11-14] MEDS: TOPIRAMATE 25 MG TABLET. PO SCH ×2 (08:01→20:27)
[2018-11-14] MEDS: BENZTROPINE MESYLATE 1 MG TABLET. PO SCH ×2 (08:01→20:28)
[2018-11-14] MEDS: FLUTICASONE 50MCG/NASAL SPRAY 16GM BOTTLE. NS SCH ×2 (08:07→21:00)
--- NOTE | 2018-11-14 08:48 | PDOC ---
PROGRESS NOTES Subjective Subjective back to base line, doing well Objective Objective Vital Signs Date Time Temp Pulse Resp B/P (MAP) Pulse Ox O2 Delivery O2 Flow Rate FiO2 11/14/18 08:01 72 179/82 11/14/18 08:00 Room Air 11/14/18 07:37 97.6 20 95 97.6 Intake and Output 11/14/18 06:59 Intake Total 920 ml Output Total 800 ml Balance 120 ml Intake Oral 920 ml Output Urine Total 800 ml Physical Exam Abdomen: Normal bowel sounds Heart: Regular rate Extremities: No cyanosis, No edema General: No acute distress HEENT: Atraumatic, Mucous membr. 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 Noncompliant with seizure medications. Mechanical aortic valve replacement, on Coumadin. subtherapeutic Bipolar.disorder Plan: d/c to SNU. inc Depakote dose 750 mg am+500mg po pm inc Topamax to 25 mg am+50mg po pm EEG neg for seizures depokate levels 48 low. d/c muscle relaxants and narcotic meds. d/c tramadol.cut down some psychiatric meds pt/ot/rehab inr 2.4 low ,d/c Lovenox. SNU screen socal service consult Comment Review of Relevant I have reviewed the following items yonathan (where applicable) has been applied. Labs Laboratory Tests Test 11/14/18 05:37 Prothrombin Time 24.3 SEC (11.7-14.0) Prothromb Time International Ratio 2.2 (0.8-1.1) Medications Current Medications Albuterol Sulfate (Ventolin Neb Soln) 2.5 mg PRN Q4HRS PRN NEB SHORTNESS OF BREATH; Start 11/13/18 at 19:30 Albuterol/ Ipratropium (Duoneb) 3 ml RTQID NEB Last administered on 11/14/18 07 :50; Start 11/13/18 at 20:00 Divalproex Sodium (Depakote) 750 mg DAILY PO Last administered on 11/14/18at 08: 00; Start 11/13/18 at 09:00 Dopamine HCl/ Dextrose 250 ml @ As Directed STK-MED ONCE IV ; Start 11/14/18 at 02:38; Stop 11/14/18 at 02:39; Status DC Topiramate (Topamax) 25 mg DAILY PO Last administered on 11/14/18at 08:01; Start 11/14/18 at 09:00 Topiramate (Topamax) 50 mg HS PO Last administered on 11/13/18at 20:49; Start 11/13/18 at 21:00 Warfarin Sodium (Coumadin) 4 mg 1X WARF ONCE PO Last administered on 11/13/18 17:18; Start 11/13/18 at 16:00; Stop 11/13/18 at 16:01; Status DC Warfarin Sodium (Coumadin) 5 mg DAILY16 PO ; Start 11/13/18 at 16:00; Stop at 16:00; Status DC Vitals/I & O Vital Sign - Last 24 Hours 11/13/18 11/13/18 11/13/18 11/13/18 11:00 15:00 19:43 19:50 Temp 98.2 99.2 97.9 98.2 99.2 97.9 Pulse 64 61 62 Resp 16 16 20 B/P (MAP) 126/63 (84) 130/67 (88) 129/62 (84) Pulse Ox 94 95 97 95 O2 Delivery Room Air Room Air Room Air Room Air 11/13/18 11/13/18 11/13/18 11/14/18 20:14 20:50 22:45 03:40 Temp 98.0 97.7 98.0 97.7 Pulse 62 60 60 Resp 18 20 B/P (MAP) 129/62 145/72 (96) 165/76 (105) Pulse Ox 97 96 O2 Delivery Room Air Room Air Room Air 11/14/18 11/14/18 11/14/18 11/14/18 07:37 07:59 08:00 08:00 Temp 97.6 97.6 Pulse 63 60 60 Resp 20 B/P (MAP) 184/76 (112) 179/82 179/82 Pulse Ox 95 O2 Delivery Room Air Room Air 11/14/18 08:01 Pulse 72 B/P (MAP) 179/82 Intake and Output 11/13/18 11/13/18 11/14/18 14:59 22:59 06:59 Intake Total 480 ml 240 ml 200 ml Output Total 500 ml 200 ml 100 ml Balance -20 ml 40 ml 100 ml NICOLE SMITH MD Nov 14, 2018 08:48
[2018-11-14] MEDS ORDERED: DIVA250T4 PO (08:52)
[2018-11-14] MEDS ORDERED: TOPI25TA52 PO ×2 (08:52)
[2018-11-14] MEDS ORDERED: DIVA500T2 PO (08:52)
--- NOTE | 2018-11-14 08:56 | DISCH ---
DISCHARGE DISCHARGE INFORMATION: DISCHARGE DATE: Nov 14, 2018 CONDITION ON DISCHARGE: Stable CODE STATUS: Code Status: Full NURSING HOME: SNF STAY <30 DAYS: Yes HOSPICE: HOSPICE: No HOSPICE EVAL & TREAT: No LTAC: ADMIT TO LTAC: No POST DISCHARGE ORDERS: ACTIVITY ORDERS: Activity as tolerated WEIGHT BEARING STATUS: As tolerated DIET AFTER DISCHARGE: Cardiac CHECKS AFTER DISCHARGE: CHECKS AFTER DISCHARGE: Check blood press - daily, Check your Temp as needed, Weigh Yourself Daily FOLLOW-UP: LAB ORDERS FOR FOLLOW-UP: PT /inr wed and days weekly ,keep inr 2-3. TREATMENT/EQUIPMENT ORDERS: ADAPTIVE EQUIPMENT NEEDED: None, Platform walker RESPIRATORY EQUIPMENT NEEDED: Oxygen Physical Therapy For: Evalulation/Treatment Occupational Therapy For: Evaluation/Treatment DISCHARGE MEDICATIONS: Home Meds Active Scripts Levothyroxine Sodium (SYNTHROID) 25 Mcg Tablet, 25 MCG PO DAILY07 for 30 Days, # 30 TAB Prov:HARRY DE LA VEGA MD 10/17/17 Atorvastatin Calcium (ATORVASTATIN CALCIUM) 10 Mg Tablet, 10 MG PO QHS, #30 TAB Prov:DARRYL WATSON APRN 10/23/14 Reported Medications Hydrocodone/Apap 5-325 (NORCO 5-325 TABLET) 1 Each Tablet, 1 TAB PO PRN BID PRN for PAIN, #60 TAB 11/10/18 Baclofen (BACLOFEN) 10 Mg Tablet, 1 TAB PO TID for muscle, #90 TAB 2 Refills 10/07/18 Divalproex Sodium (DIVALPROEX SODIUM) 500 Mg Tablet.dr, 1 TAB PO BID, #60 TAB 1 Refill 05/04/18 Isosorbide Mononitrate (ISOSORBIDE MONONITRATE ER) 30 Mg Tab.er.24h, 1 TAB PO DAILY, #30 TAB 5 Refills 05/04/18 Topiramate (TOPIRAMATE) 25 Mg Tablet, 1 TAB PO BID, #60 TAB 05/04/18 Warfarin Sodium (WARFARIN SODIUM) 5 Mg Tablet, 1 TAB PO DAILY, #90 TAB 1 Refill 05/04/18 Furosemide (FUROSEMIDE) 40 Mg Tablet, 1 TAB PO DAILY for diuretic, #30 TAB 5 Refills 10/27/17 Lurasidone Hcl (LATUDA) 40 Mg Tablet, 20 MG PO QHS, #30 TAB 1 Refill 02/20/17 Montelukast Sodium (SINGULAIR TABLET) 10 Mg Tablet, 1 TAB PO HS for allergies, # 90 TAB 1 Refill 02/20/17 Olanzapine (ZYPREXA) 15 Mg Tablet, 1 TAB PO QHS, #30 TAB 02/20/17 Pregabalin (LYRICA) 50 Mg Capsule, 1 CAP PO BID, #60 CAP 02/20/17 Metoprolol Tartrate (METOPROLOL TARTRATE) 25 Mg Tablet, 1 TAB PO BID, #180 TAB 1 Refill 02/20/17 Lisinopril (LISINOPRIL) 20 Mg Tablet, 1 TAB PO DAILY, #30 TAB 5 Refills 02/20/17 Omeprazole (OMEPRAZOLE) 40 Mg Capsule.dr, 1 CAP PO DAILY, #30 CAP 3 Refills 02/20/17 Potassium Chloride (KLOR-CON M20) 20 Meq Tab.er.prt, 1 TAB PO BID, #90 TAB 1 Refill 04/14/15 Benztropine Mesylate (BENZTROPINE MESYLATE) 1 Mg Tablet, 1 TAB PO BID, #60 TAB 1 Refill 04/14/15 Fluticasone Propionate (FLUTICASONE PROPIONATE NASAL SPRAY) 16 Gm [place].susp, 2 SPRAYS NS BID for seasonal allergies 02/05/14 Discontinued Reported Medications Colestipol Hcl (COLESTIPOL HCL) 1 Gm Tablet, 1 GM PO TID, TAB 05/04/18 NICOLE SMITH MD Nov 14, 2018 08:56
[2018-11-14] MEDS ORDERED: ALBU2.5V8 NEB (08:59)
[2018-11-14] MEDS ORDERED: IPRA3AMP29 NEB (08:59)
[2018-11-14] MEDS ORDERED: ACET325T9 PO (08:59)
--- NOTE | 2018-11-14 09:06 | PDOC ---
Provider Note Provider Note Discharge summary dictated.#[id number] NICOLE SMITH MD Nov 14, 2018 09:06
--- NOTE | 2018-11-14 09:27 | PDOC ---
PROGRESS NOTES Assessment Possible seizure, epilepsy, left central epileptic focus on EEG Sep 2018. No further seizures Syncopal spells. Metabolic encephalopathy. 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 Increase Depakote to 750 mg am and 500 mg pm. Continue Lipitor HS. FU with me 4 weeks Subjective No complaints Objective Vital Signs Date Time Temp Pulse Resp B/P (MAP) Pulse Ox O2 Delivery O2 Flow Rate FiO2 11/14/18 08:01 72 179/82 11/14/18 08:00 Room Air 11/14/18 07:37 97.6 20 95 97.6 Intake and Output 11/14/18 07:00 Intake Total 920 ml Output Total 1300 ml Balance -380 ml Intake Oral 920 ml Output Urine Total 1300 ml PHYSICAL EXAM Physical Exam: Alert. Oriented to time, place and person, consistent with intellectual disability. PERR, Left pupil larger than right, known Adie's pupil EOMI. CN: no focal findings. Muscle tone: normal. Muscle strength: 4/5 DTR: 1+ Plantar reflex: flexor Gait: not examined Sensory exam: no abnormal findings. No cerebellar signs elicited. Review of Relevant I have reviewed the following items yonathan (where applicable) has been applied. Labs Laboratory Tests Test 11/13/18 04:15 11/14/18 05:37 Prothrombin Time 24.3 SEC (11.7-14.0) 24.3 SEC (11.7-14.0) Prothromb Time International Ratio 2.2 (0.8-1.1) 2.2 (0.8-1.1) Laboratory Tests Test 11/14/18 05:37 Prothrombin Time 24.3 SEC (11.7-14.0) Prothromb Time International Ratio 2.2 (0.8-1.1) Medications Current Medications Sodium Chloride 1,000 ml @ 1,000 mls/hr 1X ONCE IV Last administered on at 14:36; Start 11/10/18 at 14:00; Stop 11/10/18 at 14:59; Status DC Nitroglycerin (Nitrostat) 0.4 mg PRN Q5MIN PRN SL CHEST PAIN Last administered on 11/10/18at 14:50; Start 11/10/18 at 14:30 Nitroglycerin (Nitrostat) 0.4 mg STK-MED ONCE SL ; Start 11/10/18 at 14:31; Stop 11/10/18 at 14:32; Status DC Fentanyl Citrate (Fentanyl 2ml Vial) 50 mcg 1X ONCE IV Last administered on at 17:43; Start 11/10/18 at 17:30; Stop 11/10/18 at 17:31; Status DC Ondansetron HCl (Zofran) 4 mg PRN Q8HRS PRN IV NAUSEA/VOMITING; Start 11/10/18 at 18:45; Stop 11/11/18 at 18:44; Status DC Morphine Sulfate (Morphine Sulfate) 2 mg PRN Q2HR PRN IV PAIN Last administered on 11/10/18at 23:16; Start 11/10/18 at 18:45; Stop 11/11/18 at 18:44 ; Status DC Atorvastatin Calcium (Lipitor) 10 mg QHS PO Last administered on 11/13/18at 20:48 ; Start 11/10/18 at 23:00 Baclofen (Lioresal) 10 mg TID PO Last administered on 11/12/18 08:31; Start at 23:00; Stop 11/12/18 at 11:57; Status DC Colestipol HCl (Colestid) 1 gm TIDAC PO ; Start 11/11/18 at 07:30; Stop 11/11/18 at 11:55; Status DC Fluoxetine HCl (PROzac) 20 mg DAILY PO Last administered on 11/13/18 08:05; Start 11/11/18 at 09:00; Stop 11/13/18 at 10:31; Status DC Fluticasone Propionate (Flonase) 2 spray BID NS Last administered on 11/14/18 08:07; Start 11/11/18 at 09:00 Furosemide (Lasix) 40 mg QODAY PO Last administered on 11/14/18 07:59; Start at 09:00 Isosorbide Mononitrate (Imdur) 30 mg DAILY PO Last administered on 11/14/18at 08: 00; Start 11/11/18 at 09:00 Lisinopril (Prinivil) 20 mg DAILY PO Last administered on 11/14/18 07:59; Start 11/11/18 at 09:00 Lurasidone HCl (Latuda) 20 mg QHS PO Last administered on 11/13/18 20:49; Start 11/11/18 at 21:00 Metoprolol Tartrate (Lopressor) 25 mg BID PO Last administered on 11/14/18 08: 01; Start 11/10/18 at 23:00 Potassium Chloride (Klor-Con) 20 meq BID PO Last administered on 11/14/18 07:59 ; Start 11/10/18 at 23:00 Pregabalin (Lyrica) 50 mg BID PO Last administered on 11/14/18 07:59; Start at 23:00 Benztropine Mesylate (Cogentin) 1 mg BID PO Last administered on 11/14/18 08:01 ; Start 11/10/18 at 23:00 Divalproex Sodium (Depakote) 500 mg BID PO Last administered on 11/12/18 08:24 ; Start 11/10/18 at 23:00; Stop 11/12/18 at 14:30; Status DC Levothyroxine Sodium (Synthroid) 25 mcg DAILY06 PO Last administered on 06:47; Start 11/11/18 at 06:00; Stop 11/12/18 at 05:59; Status DC Montelukast Sodium (Singulair) 10 mg QHS PO Last administered on 11/13/18 20:48 ; Start 11/10/18 at 23:00 Olanzapine (ZyPREXA) 15 mg QHS PO Last administered on 11/13/18 20:49; Start at 23:00 Pantoprazole Sodium (Protonix) 40 mg DAILYAC PO Last administered on 11/14/18 08:00; Start 11/11/18 at 07:30 Quetiapine Fumarate (SEROquel) 100 mg QHS PO Last administered on 11/12/18 20: 44; Start 11/10/18 at 23:00; Stop 11/13/18 at 10:31; Status DC Topiramate (Topamax) 25 mg BID PO Last administered on 11/13/18 08:04; Start at 09:00; Stop 11/13/18 at 14:03; Status DC Non-Formulary Medication (Warfarin Sodium ) 1 tab DAILY PO ; Start 11/11/18 at 09 :00; Status UNV Warfarin Sodium (Coumadin Per Physician) 1 each PRN DAILY PRN MC SEE COMMENTS Last administered on 11/11/18at 09:00; Start 11/10/18 at 23:00; Stop 11/11/18 at 10 :19; Status DC Warfarin Sodium (Coumadin) 5 mg 1X WARF ONCE PO Last administered on at 23:13; Start 11/10/18 at 23:00; Stop 11/10/18 at 23:01; Status DC Warfarin Sodium (Coumadin) 5 mg DAILY16 PO Last administered on 11/11/18at 17:19 ; Start 11/11/18 at 16:00; Stop 11/12/18 at 13:28; Status DC Tramadol HCl (Ultram) 50 mg PRN BID PRN PO PAIN Last administered on 11/11/18 10:36; Start 11/11/18 at 10:15; Stop 11/12/18 at 12:03; Status DC Warfarin Sodium (Coumadin Per Pharmacy) 1 each PRN DAILY PRN MC SEE COMMENTS Last administered on 11/13/18 09:15; Start 11/11/18 at 10:15 Enoxaparin Sodium (Lovenox 100mg Syringe) 100 mg Q12HR SQ Last administered on 11/13/18 08:06; Start 11/11/18 at 10:30; Stop 11/13/18 at 10:18; Status DC Colestipol HCl (Colestid) 1 gm TID@1000,1400,2200 PO Last administered on 22:28; Start 11/11/18 at 14:00; Stop 11/12/18 at 10:05; Status DC Oxycodone/ Acetaminophen (Percocet 5/325) 1 tab PRN Q6HRS PRN PO PAIN Last administered on 11/11/18 14:55; Start 11/11/18 at 14:45; Stop 11/12/18 at 11:57; Status DC Levothyroxine Sodium (Synthroid) 25 mcg DAILYAC PO Last administered on at 08:22; Start 11/12/18 at 07:30; Stop 11/12/18 at 10:06; Status DC Colestipol HCl (Colestid) 1 gm TID@0800,1300,2000 PO ; Start 11/12/18 at 13:00; Stop 11/12/18 at 13:00; Status DC Levothyroxine Sodium (Synthroid) 25 mcg DAILY06 PO Last administered on 06:18; Start 11/13/18 at 06:00 Acetaminophen (Tylenol) 650 mg PRN Q6HRS PRN PO PAIN Last administered on 20:42; Start 11/12/18 at 12:00 Warfarin Sodium (Coumadin) 5 mg DAILY16 PO ; Start 11/13/18 at 16:00; Stop at 16:00; Status DC Warfarin Sodium (Coumadin) 7.5 mg 1X WARF ONCE PO Last administered on 16:33; Start 11/12/18 at 16:00; Stop 11/12/18 at 16:01; Status DC Divalproex Sodium (Depakote) 750 mg DAILY PO Last administered on 11/14/18 08: 00; Start 11/13/18 at 09:00 Divalproex Sodium (Depakote) 500 mg QHS PO Last administered on 11/13/18 20:49 ; Start 11/12/18 at 21:00 Warfarin Sodium (Coumadin) 4 mg 1X WARF ONCE PO Last administered on 11/13/18 17:18; Start 11/13/18 at 16:00; Stop 11/13/18 at 16:01; Status DC Topiramate (Topamax) 25 mg DAILY PO Last administered on 11/14/18 08:01; Start 11/14/18 at 09:00 Topiramate (Topamax) 50 mg HS PO Last administered on 11/13/18 20:49; Start 11/13/18 at 21:00 Albuterol/ Ipratropium (Duoneb) 3 ml RTQID NEB Last administered on 11/14/18 07 :50; Start 11/13/18 at 20:00 Albuterol Sulfate (Ventolin Neb Soln) 2.5 mg PRN Q4HRS PRN NEB SHORTNESS OF BREATH; Start 3/3/19 at 19:30 Dopamine HCl/ Dextrose 250 ml @ As Directed STK-MED ONCE IV ; Start 11/14/18 at 02:38; Stop 11/14/18 at 02:39; Status DC Active Scripts Active Duoneb 0.5-3(2.5) Mg/3 Ml (Albuterol/Ipratropium) 3 Ml Ampul.neb 3 Ml NEB RTQID 30 Days Proair Hfa (Albuterol Sulfate) 8.5 Gm Hfa.aer.ad 2.5 Mg NEB PRN Q4HRS PRN 30 Days Tylenol (Acetaminophen) 325 Mg Tablet 650 Mg PO PRN Q6HRS PRN 30 Days Topamax (Topiramate) 25 Mg Tablet 50 Mg PO HS 30 Days Topamax (Topiramate) 25 Mg Tablet 25 Mg PO DAILY 30 Days Depakote (Divalproex Sodium) 250 Mg Tablet.dr 750 Mg PO DAILY 30 Days Depakote (Divalproex Sodium) 500 Mg Tablet.dr 500 Mg PO QHS 30 Days Synthroid (Levothyroxine Sodium) 25 Mcg Tablet 25 Mcg PO DAILY07 30 Days Atorvastatin Calcium 10 Mg Tablet 10 Mg PO QHS Reported Isosorbide Mononitrate Er (Isosorbide Mononitrate) 30 Mg Tab.er.24h 1 Tab PO DAILY Warfarin Sodium 5 Mg Tablet 1 Tab PO DAILY Furosemide 40 Mg Tablet 1 Tab PO DAILY Latuda (Lurasidone Hcl) 40 Mg Tablet 20 Mg PO QHS Singulair Tablet (Montelukast Sodium) 10 Mg Tablet 1 Tab PO HS Zyprexa (Olanzapine) 15 Mg Tablet 1 Tab PO QHS Lyrica (Pregabalin) 50 Mg Capsule 1 Cap PO BID Metoprolol Tartrate 25 Mg Tablet 1 Tab PO BID Lisinopril 20 Mg Tablet 1 Tab PO DAILY Omeprazole 40 Mg Capsule. 1 Cap PO DAILY Klor-Con M20 (Potassium Chloride) 20 Meq Tab.er.prt 1 Tab PO BID Benztropine Mesylate 1 Mg Tablet 1 Tab PO BID Fluticasone Propionate Nasal [place] (Fluticasone Propionate) 16 Gm [place].susp 2 Sprays NS BID for seasonal allergies Vitals/I & O Vital Sign - Last 24 Hours 11/13/18 11/13/18 11/13/18 11/13/18 11:00 15:00 19:43 19:50 Temp 98.2 99.2 97.9 98.2 99.2 97.9 Pulse 64 61 62 Resp 16 16 20 B/P (MAP) 126/63 (84) 130/67 (88) 129/62 (84) Pulse Ox 94 95 97 95 O2 Delivery Room Air Room Air Room Air Room Air 11/13/18 11/13/18 11/13/18 11/14/18 20:14 20:50 22:45 03:40 Temp 98.0 97.7 98.0 97.7 Pulse 62 60 60 Resp 18 20 B/P (MAP) 129/62 145/72 (96) 165/76 (105) Pulse Ox 97 96 O2 Delivery Room Air Room Air Room Air 11/14/18 11/14/18 11/14/18 11/14/18 07:37 07:59 08:00 08:00 Temp 97.6 97.6 Pulse 63 60 60 Resp 20 B/P (MAP) 184/76 (112) 179/82 179/82 Pulse Ox 95 O2 Delivery Room Air Room Air 11/14/18 08:01 Pulse 72 B/P (MAP) 179/82 Intake and Output 11/13/18 11/13/18 11/14/18 15:00 23:00 07:00 Intake Total 480 ml 240 ml 200 ml Output Total 500 ml 300 ml 500 ml Balance -20 ml -60 ml -300 ml JUSTYNA PARKS MD Nov 14, 2018 09:27
--- NOTE | 2018-11-14 11:03 | NUR ---
SS following up with discharge planning. SS received notification from [facility] stating that they are not in network with pt's [facility] plan and pt would need to go elsewhere for half-way unit. SS met with pt and spoke with pt's spouse via phone. Pt and pt's spouse requested that referral be sent to [facility]. SS phoned and faxed referral to [facility], ; fax [phone]. SS will await acceptance decision and insurance determination and will proceed accordingly. Pt's RN notified.
[2018-11-14 11:04] VITALS: BP 172/82
--- NOTE | 2018-11-14 11:05 | NUR ---
Pharmacy Warfarin Dosing Note S:Pharmacy consulted to assist with anticoagulation therapy started with target INR: 2 -3 O:RHETT HERNANDEZ is a 58 year old F with Atrial Fibrillation Mechanical Aortic Valve LABS: Last INR: 2.2 Last HGB: 12.1 Last HCT: 36.5 Last PLT: 158 Last dose of 4 mg given on 11/13/18 at 1720 Previous Regimen: 5MG DAILY Vitamin K given: Drug Interaction Changes: Ongoing Drug Interactions: COLESTIPOL (-3/) A:INR of 2.2 is within desired range. Target range for this patient is: 2 -3 P: Warfarin dose: 5 mg Today at 1600 Bridge Therapy: Enoxaparin 1 mg/kg q12h Next INR due in am Pharmacy anticoagulation service will continue to follow. [facility], 11/14/18 [id number]
--- NOTE | 2018-11-14 13:42 | NUR ---
SS following up with discharge planning. Pt is accepted at [facility]. SS phoned and faxed discharge orders to [facility], ; fax [phone]. SS will await insurance authorization from [facility] and will proceed accordingly with discharge.
--- NOTE | 2018-11-14 14:18 | DS ---
DATE OF DISCHARGE: 11/14/2018 REASON FOR ADMISSION TO THE HOSPITAL: Near syncope and seizures. CONSULTATIONS: Dr. Florez, Dr. Srivastava, and Dr. Rasmussen. PROCEDURES DONE: EEG and a CT head. HOSPITAL COURSE: The patient is a 58-year-old female with history of chronic anxiety, depression, psych medications. She also has a pacemaker, cardiac stent. She went to the [facility], she was lightheaded, dizzy and she almost passed out, was brought to the hospital and had a CT head, was negative. INR was low at 1.2. The patient was seen by Cardiology, had a marked laborer cutting tool, cardiac enzymes, troponin was negative. Had a pacemaker checkup not too long ago, was normal. No arrhythmias. The patient was seen by Dr. Florez, Neurology, had an EEG, no active seizures, she had history of previous seizures. She is on Depakote 500 mg twice daily, levels were low at 48. Increase Depakote to 750 mg in the morning and 500 in the evening and also Topamax 25 mg twice a day to 25 in the morning and 50 in the evening. Some of the psych medication were discontinued. Pain medication was discontinued and she is much better, more awake and participating and she is walking with physical therapy, still a problem with balance and the family wants to her to go to shelter. The patient is in the plans of being discharged to shelter. FINAL DIAGNOSES: 1. Near syncope. 2. Balance problems. 3. Mechanical aortic valve replacement, on Coumadin. INR is subtherapeutic at the time of admission. 4. History of pacemaker for sick sinus syndrome. 5. Coronary artery disease, previous cardiac stents. 6. Hypothyroidism. 7. Hypertension. 8. Seizures. 9. Anxiety. 10. Depression. 11. Lot of psych over medications. PLAN: At this time, was some the medications were adjusted and she is much better. Two changes were Depakote 500 mg in the evening and 750 in the morning, Topamax 25 in the morning and 50 in the evening, Coumadin 5 mg daily and continue to monitor INR periodically. NICOLE SMITH MD DR: ISAMAR/cori JOB#: [id number] / [id number] RUBIO Birch
[2018-11-14 14:45] VITALS: BP 137/66
[2018-11-14] MEDS ORDERED: WARFARIN 5 MG TABLET. PO ONE (16:00)
--- NOTE | 2018-11-14 16:54 | PDOC ---
PROGRESS NOTES Subjective Subjective Patient seen and examined The patient looks and feels better today. Objective Objective Vital Signs Date Time Temp Pulse Resp B/P (MAP) Pulse Ox O2 Delivery O2 Flow Rate FiO2 11/14/18 14:45 97.9 62 20 137/66 (89) 94 Room Air 97.9 Intake and Output 11/14/18 07:00 Intake Total 920 ml Output Total 1300 ml Balance -380 ml Intake Oral 920 ml Output Urine Total 1300 ml Physical Exam Abdomen: Normal bowel sounds Heart: Regular rate General: No acute distress Lungs: Clear to auscultation Assessment Assessment Possible seizure. Neurology workup in progress. History of a seizure disorder as well as schizophrenia and bipolar disorder. Telemetry shows a stable rhythm. Coronary artery disease. Previous stenting. No acute ischemic changes. Continue medical treatment. Stress testing 3 months ago showed no ischemia and an ejection fraction of 70%. Permanent pacemaker for sick sinus syndrome. Recent interrogation showed no significant arrhythmias. Aortic valve replacement with mechanical valve. Coumadin for anticoagulation. Colestipol discontinued. History of medical noncompliance with recent frequent hospitalizations. Controlled hypertension. Statins for hyperlipidemia. Comment Review of Relevant I have reviewed the following items yonathan (where applicable) has been applied. Labs Laboratory Tests Test 11/13/18 04:15 11/14/18 05:37 Prothrombin Time 24.3 SEC (11.7-14.0) 24.3 SEC (11.7-14.0) Prothromb Time International Ratio 2.2 (0.8-1.1) 2.2 (0.8-1.1) Laboratory Tests Test 11/14/18 05:37 Prothrombin Time 24.3 SEC (11.7-14.0) Prothromb Time International Ratio 2.2 (0.8-1.1) Medications Current Medications Sodium Chloride 1,000 ml @ 1,000 mls/hr 1X ONCE IV Last administered on at 14:36; Start 11/10/18 at 14:00; Stop 11/10/18 at 14:59; Status DC Nitroglycerin (Nitrostat) 0.4 mg PRN Q5MIN PRN SL CHEST PAIN Last administered on 11/10/18at 14:50; Start 11/10/18 at 14:30 Nitroglycerin (Nitrostat) 0.4 mg STK-MED ONCE SL ; Start 11/10/18 at 14:31; Stop 11/10/18 at 14:32; Status DC Fentanyl Citrate (Fentanyl 2ml Vial) 50 mcg 1X ONCE IV Last administered on 17:43; Start 11/10/18 at 17:30; Stop 11/10/18 at 17:31; Status DC Ondansetron HCl (Zofran) 4 mg PRN Q8HRS PRN IV NAUSEA/VOMITING; Start 11/10/18 at 18:45; Stop 11/11/18 at 18:44; Status DC Morphine Sulfate (Morphine Sulfate) 2 mg PRN Q2HR PRN IV PAIN Last administered on 11/10/18 23:16; Start 11/10/18 at 18:45; Stop 11/11/18 at 18:44 ; Status DC Atorvastatin Calcium (Lipitor) 10 mg QHS PO Last administered on 11/13/18 20:48 ; Start 11/10/18 at 23:00 Baclofen (Lioresal) 10 mg TID PO Last administered on 11/12/18 08:31; Start at 23:00; Stop 11/12/18 at 11:57; Status DC Colestipol HCl (Colestid) 1 gm TIDAC PO ; Start 11/11/18 at 07:30; Stop 11/11/18 at 11:55; Status DC Fluoxetine HCl (PROzac) 20 mg DAILY PO Last administered on 11/13/18 08:05; Start 11/11/18 at 09:00; Stop 11/13/18 at 10:31; Status DC Fluticasone Propionate (Flonase) 2 spray BID NS Last administered on 11/14/18 08:07; Start 11/11/18 at 09:00 Furosemide (Lasix) 40 mg QODAY PO Last administered on 11/14/18 07:59; Start at 09:00 Isosorbide Mononitrate (Imdur) 30 mg DAILY PO Last administered on 11/14/18 08: 00; Start 11/11/18 at 09:00 Lisinopril (Prinivil) 20 mg DAILY PO Last administered on 11/14/18 07:59; Start 11/11/18 at 09:00 Lurasidone HCl (Latuda) 20 mg QHS PO Last administered on 11/13/18 20:49; Start 11/11/18 at 21:00 Metoprolol Tartrate (Lopressor) 25 mg BID PO Last administered on 11/14/18 08: 01; Start 11/10/18 at 23:00 Potassium Chloride (Klor-Con) 20 meq BID PO Last administered on 11/14/18 07:59 ; Start 11/10/18 at 23:00 Pregabalin (Lyrica) 50 mg BID PO Last administered on 11/14/18 07:59; Start at 23:00 Benztropine Mesylate (Cogentin) 1 mg BID PO Last administered on 11/14/18 08:01 ; Start 11/10/18 at 23:00 Divalproex Sodium (Depakote) 500 mg BID PO Last administered on 11/12/18 08:24 ; Start 11/10/18 at 23:00; Stop 11/12/18 at 14:30; Status DC Levothyroxine Sodium (Synthroid) 25 mcg DAILY06 PO Last administered on 06:47; Start 11/11/18 at 06:00; Stop 11/12/18 at 05:59; Status DC Montelukast Sodium (Singulair) 10 mg QHS PO Last administered on 11/13/18 20:48 ; Start 11/10/18 at 23:00 Olanzapine (ZyPREXA) 15 mg QHS PO Last administered on 11/13/18 20:49; Start at 23:00 Pantoprazole Sodium (Protonix) 40 mg DAILYAC PO Last administered on 11/14/18 08:00; Start 11/11/18 at 07:30 Quetiapine Fumarate (SEROquel) 100 mg QHS PO Last administered on 11/12/18 20: 44; Start 11/10/18 at 23:00; Stop 11/13/18 at 10:31; Status DC Topiramate (Topamax) 25 mg BID PO Last administered on 11/13/18 08:04; Start at 09:00; Stop 11/13/18 at 14:03; Status DC Non-Formulary Medication (Warfarin Sodium ) 1 tab DAILY PO ; Start 11/11/18 at 09 :00; Status UNV Warfarin Sodium (Coumadin Per Physician) 1 each PRN DAILY PRN MC SEE COMMENTS Last administered on 11/11/18at 09:00; Start 11/10/18 at 23:00; Stop 11/11/18 at 10 :19; Status DC Warfarin Sodium (Coumadin) 5 mg 1X WARF ONCE PO Last administered on at 23:13; Start 11/10/18 at 23:00; Stop 11/10/18 at 23:01; Status DC Warfarin Sodium (Coumadin) 5 mg DAILY16 PO Last administered on 11/11/18at 17:19 ; Start 11/11/18 at 16:00; Stop 11/12/18 at 13:28; Status DC Tramadol HCl (Ultram) 50 mg PRN BID PRN PO PAIN Last administered on 11/11/18at 10:36; Start 11/11/18 at 10:15; Stop 11/12/18 at 12:03; Status DC Warfarin Sodium (Coumadin Per Pharmacy) 1 each PRN DAILY PRN MC SEE COMMENTS Last administered on 11/14/18at 11:04; Start 11/11/18 at 10:15 Enoxaparin Sodium (Lovenox 100mg Syringe) 100 mg Q12HR SQ Last administered on 11/13/18 08:06; Start 11/11/18 at 10:30; Stop 11/13/18 at 10:18; Status DC Colestipol HCl (Colestid) 1 gm TID@1000,1400,2200 PO Last administered on at 22:28; Start 11/11/18 at 14:00; Stop 11/12/18 at 10:05; Status DC Oxycodone/ Acetaminophen (Percocet 5/325) 1 tab PRN Q6HRS PRN PO PAIN Last administered on 11/11/18at 14:55; Start 11/11/18 at 14:45; Stop 11/12/18 at 11:57; Status DC Levothyroxine Sodium (Synthroid) 25 mcg DAILYAC PO Last administered on 08:22; Start 11/12/18 at 07:30; Stop 11/12/18 at 10:06; Status DC Colestipol HCl (Colestid) 1 gm TID@0800,1300,2000 PO ; Start 11/12/18 at 13:00; Stop 11/12/18 at 13:00; Status DC Levothyroxine Sodium (Synthroid) 25 mcg DAILY06 PO Last administered on 06:18; Start 11/13/18 at 06:00 Acetaminophen (Tylenol) 650 mg PRN Q6HRS PRN PO PAIN Last administered on 20:42; Start 11/12/18 at 12:00 Warfarin Sodium (Coumadin) 5 mg DAILY16 PO ; Start 11/13/18 at 16:00; Stop at 16:00; Status DC Warfarin Sodium (Coumadin) 7.5 mg 1X WARF ONCE PO Last administered on 16:33; Start 11/12/18 at 16:00; Stop 11/12/18 at 16:01; Status DC Divalproex Sodium (Depakote) 750 mg DAILY PO Last administered on 11/14/18 08: 00; Start 11/13/18 at 09:00 Divalproex Sodium (Depakote) 500 mg QHS PO Last administered on 11/13/18 20:49 ; Start 11/12/18 at 21:00 Warfarin Sodium (Coumadin) 4 mg 1X WARF ONCE PO Last administered on 11/13/18 17:18; Start 11/13/18 at 16:00; Stop 11/13/18 at 16:01; Status DC Topiramate (Topamax) 25 mg DAILY PO Last administered on 11/14/18 08:01; Start 11/14/18 at 09:00 Topiramate (Topamax) 50 mg HS PO Last administered on 11/13/18 20:49; Start 11/13/18 at 21:00 Albuterol/ Ipratropium (Duoneb) 3 ml RTQID NEB Last administered on 11/14/18 10 :54; Start 11/13/18 at 20:00 Albuterol Sulfate (Ventolin Neb Soln) 2.5 mg PRN Q4HRS PRN NEB SHORTNESS OF BREATH; Start 11/13/18 at 19:30 Dopamine HCl/ Dextrose 250 ml @ As Directed STK-MED ONCE IV ; Start 11/14/18 at 02:38; Stop 11/14/18 at 02:39; Status DC Warfarin Sodium (Coumadin) 5 mg 1X WARF ONCE PO Last administered on 11/14/18at 16:22; Start 11/14/18 at 16:00; Stop 11/14/18 at 16:01; Status DC Dopamine HCl/ Dextrose (DOPamine 400MG/ 250ML PREMIX) 400 mg STK-MED ONCE IV ; Start 11/14/18 at 03:00; Stop 11/14/18 at 13:16; Status DC Active Scripts Active Duoneb 0.5-3(2.5) Mg/3 Ml (Albuterol/Ipratropium) 3 Ml Ampul.neb 3 Ml NEB RTQID 30 Days Proair Hfa (Albuterol Sulfate) 8.5 Gm Hfa.aer.ad 2.5 Mg NEB PRN Q4HRS PRN 30 Days Tylenol (Acetaminophen) 325 Mg Tablet 650 Mg PO PRN Q6HRS PRN 30 Days Topamax (Topiramate) 25 Mg Tablet 50 Mg PO HS 30 Days Topamax (Topiramate) 25 Mg Tablet 25 Mg PO DAILY 30 Days Depakote (Divalproex Sodium) 250 Mg Tablet.dr 750 Mg PO DAILY 30 Days Depakote (Divalproex Sodium) 500 Mg Tablet.dr 500 Mg PO QHS 30 Days Synthroid (Levothyroxine Sodium) 25 Mcg Tablet 25 Mcg PO DAILY07 30 Days Atorvastatin Calcium 10 Mg Tablet 10 Mg PO QHS Reported Isosorbide Mononitrate Er (Isosorbide Mononitrate) 30 Mg Tab.er.24h 1 Tab PO DAILY Warfarin Sodium 5 Mg Tablet 1 Tab PO DAILY Furosemide 40 Mg Tablet 1 Tab PO DAILY Latuda (Lurasidone Hcl) 40 Mg Tablet 20 Mg PO QHS Singulair Tablet (Montelukast Sodium) 10 Mg Tablet 1 Tab PO HS Zyprexa (Olanzapine) 15 Mg Tablet 1 Tab PO QHS Lyrica (Pregabalin) 50 Mg Capsule 1 Cap PO BID Metoprolol Tartrate 25 Mg Tablet 1 Tab PO BID Lisinopril 20 Mg Tablet 1 Tab PO DAILY Omeprazole 40 Mg Capsule.dr 1 Cap PO DAILY Klor-Con M20 (Potassium Chloride) 20 Meq Tab.er.prt 1 Tab PO BID Benztropine Mesylate 1 Mg Tablet 1 Tab PO BID Fluticasone Propionate Nasal [place] (Fluticasone Propionate) 16 Gm [place].susp 2 Sprays NS BID for seasonal allergies Vitals/I & O Vital Sign - Last 24 Hours 11/13/18 11/13/18 11/13/18 11/13/18 19:43 19:50 20:14 20:50 Temp 97.9 97.9 Pulse 62 62 Resp 20 B/P (MAP) 129/62 (84) 129/62 Pulse Ox 97 95 O2 Delivery Room Air Room Air Room Air 11/13/18 11/14/18 11/14/18 11/14/18 22:45 03:40 07:37 07:59 Temp 98.0 97.7 97.6 98.0 97.7 97.6 Pulse 60 60 63 60 Resp 18 20 20 B/P (MAP) 145/72 (96) 165/76 (105) 184/76 (112) 179/82 Pulse Ox 97 96 95 O2 Delivery Room Air Room Air Room Air 11/14/18 11/14/18 11/14/18 11/14/18 08:00 08:00 08:01 10:54 Pulse 60 72 B/P (MAP) 179/82 179/82 Pulse Ox 96 O2 Delivery Room Air Room Air 11/14/18 11/14/18 11/14/18 10:54 11:04 14:45 Temp 97.8 97.9 97.8 97.9 Pulse 60 62 Resp 20 20 B/P (MAP) 172/82 (112) 137/66 (89) Pulse Ox 96 100 94 O2 Delivery Room Air Room Air Room Air Intake and Output 11/13/18 11/13/18 11/14/18 15:00 23:00 07:00 Intake Total 480 ml 240 ml 200 ml Output Total 500 ml 300 ml 500 ml Balance -20 ml -60 ml -300 ml DAT MIMS MD Nov 14, 2018 16:54
[2018-11-14 19:05] VITALS: BP 123/62
[2018-11-14] MEDS: MONTELUKAST SODIUM 10 MG TABLET. PO SCH (20:25)
[2018-11-14] MEDS: LURASIDONE 40 MG TABLET. PO SCH (20:26)
[2018-11-14] MEDS: ATORVASTATIN CALCIUM 10 MG TABLET. PO SCH (20:26)
[2018-11-14] MEDS: OLANZapine 5 MG TABLET PO SCH (20:27)
[2018-11-14] MEDS: DIVALPROEX DELAYED RELEASE 500 MG TABLET.DR. PO SCH (20:28)
[2018-11-14 23:40] VITALS: BP 158/82
[2018-11-15 03:30] VITALS: BP 131/65
[2018-11-15 04:39] LABS: PROTHROMBIN TIME PATIENT 26.3 SEC (11.7-14.0)
[2018-11-15] MEDS: PANTOPRAZOLE 40 MG TABLET.DR. PO SCH (05:59)
[2018-11-15] MEDS: LEVOTHYROXINE 25 MCG TABLET. PO SCH (05:59)
[2018-11-15 07:00] VITALS: BP 135/65
[2018-11-15] MEDS: IPRATRPIUM/ALBUTEROL 0.5/2.5MG 3 ML NEBU. NEB SCH ×3 (07:14→14:51)
[2018-11-15] MEDS: FLUTICASONE 50MCG/NASAL SPRAY 16GM BOTTLE. NS SCH (08:07)
[2018-11-15] MEDS: DIVALPROEX DELAYED RELEASE 250 MG TABLET.DR. PO SCH (08:08)
[2018-11-15] MEDS: PREGABALIN 50 MG CAPSULE PO SCH (08:09)
[2018-11-15] MEDS: POTASSIUM CHLORIDE 20 MEQ TABLET.ER. PO SCH (08:09)
[2018-11-15] MEDS: BENZTROPINE MESYLATE 1 MG TABLET. PO SCH (08:09)
[2018-11-15] MEDS: TOPIRAMATE 25 MG TABLET. PO SCH (08:09)
[2018-11-15] MEDS: METOPROLOL TART IMMED RELEASE 25 MG TABLET. PO SCH (08:10)
[2018-11-15] MEDS: ISOSORBIDE MONONITRATE ER 30 MG TAB.ER.24H PO SCH (08:11)
--- NOTE | 2018-11-15 10:01 | PDOC ---
PROGRESS NOTES Subjective Subjective [facility] Objective Objective Vital Signs Date Time Temp Pulse Resp B/P (MAP) Pulse Ox O2 Delivery O2 Flow Rate FiO2 11/15/18 08:11 66 124/65 11/15/18 07:20 Room Air 11/15/18 07:19 95 11/15/18 07:00 97.8 20 97.8 Intake and Output 11/15/18 07:00 Intake Total 1160 ml Output Total 3250 ml Balance -2090 ml Intake Oral 1160 ml Output Urine Total 3250 ml Physical Exam Abdomen: Normal bowel sounds Heart: Regular rate Extremities: No cyanosis, No edema General: No acute distress HEENT: Atraumatic, Mucous membr. 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 Noncompliant with seizure medications. Mechanical aortic valve replacement, on Coumadin. subtherapeutic Bipolar.disorder Possible seizure. Neurology workup in progress. History of a seizure disorder as well as schizophrenia and bipolar disorder. Telemetry shows a stable rhythm. Coronary artery disease. Previous stenting. No acute ischemic changes. Continue medical treatment. Stress testing 3 months ago showed no ischemia and an ejection fraction of 70%. Permanent pacemaker for sick sinus syndrome. Recent interrogation showed no significant arrhythmias. Aortic valve replacement with mechanical valve. Coumadin for anticoagulation. Colestipol discontinued. History of medical noncompliance with recent frequent hospitalizations. Controlled hypertension. Statins for hyperlipidemia. Plan[facility] Depakote dose 750 mg am+500mg po pm inc Topamax to 25 mg am+50mg po pm EEG neg for seizures depokate levels 48 low. d/c muscle relaxants and narcotic meds. d/c tramadol.cut down some psychiatric meds pt/ot/rehab inr 2.4 [facility]ocal service consult Comment Review of Relevant I have reviewed the following items yonathan (where applicable) has been applied. Labs Laboratory Tests Test 11/15/18 03:55 Prothrombin Time 26.3 SEC (11.7-14.0) Prothromb Time International Ratio 2.4 (0.8-1.1) Medications Current Medications Warfarin Sodium (Coumadin) 5 mg 1X WARF ONCE PO Last administered on 11/14/18at 16:22; Start 11/14/18 at 16:00; Stop 11/14/18 at 16:01; Status DC Vitals/I & O Vital Sign - Last 24 Hours 11/14/18 11/14/18 11/14/18 11/14/18 10:54 10:54 11:04 14:45 Temp 97.8 97.9 97.8 97.9 Pulse 60 62 Resp 20 20 B/P (MAP) 172/82 (112) 137/66 (89) Pulse Ox 96 96 100 94 O2 Delivery Room Air Room Air Room Air Room Air 11/14/18 11/14/18 11/14/18 11/14/18 19:05 19:45 20:00 20:28 Temp 98.0 98.0 Pulse 60 60 B/P (MAP) 123/62 (82) 123/62 Pulse Ox 96 96 O2 Delivery Room Air Room Air Room Air 11/14/18 11/15/18 11/15/18 11/15/18 23:40 03:30 07:00 07:19 Temp 98.0 97.8 97.8 98.0 97.8 97.8 Pulse 60 60 63 Resp 18 18 20 B/P (MAP) 158/82 (107) 131/65 (87) 135/65 (88) Pulse Ox 96 96 94 95 O2 Delivery Room Air Room Air Room Air Room Air 11/15/18 11/15/18 11/15/18 07:20 08:10 08:11 Pulse 68 66 B/P (MAP) 124/64 124/65 O2 Delivery Room Air Intake and Output 11/14/18 11/14/18 11/15/18 15:00 23:00 07:00 Intake Total 660 ml 500 ml Output Total 2400 ml 550 ml 300 ml Balance -2400 ml 110 ml 200 ml NICOLE SMITH MD Nov 15, 2018 10:01
--- NOTE | 2018-11-15 10:02 | DISCH ---
DISCHARGE DISCHARGE INFORMATION: DISCHARGE DATE: Nov 15, 2018 CONDITION ON DISCHARGE: Stable CODE STATUS: Code Status: Full POST DISCHARGE ORDERS: ACTIVITY ORDERS: Activity as tolerated WEIGHT BEARING STATUS: As tolerated DIET AFTER DISCHARGE: Cardiac CHECKS AFTER DISCHARGE: CHECKS AFTER DISCHARGE: Check blood press - daily, Check your Temp as needed, Weigh Yourself Daily FOLLOW-UP: LAB ORDERS FOR FOLLOW-UP: PT /inr mon and thurs days weekly ,keep inr 2-3. TREATMENT/EQUIPMENT ORDERS: ADAPTIVE EQUIPMENT NEEDED: None, Platform walker RESPIRATORY EQUIPMENT NEEDED: Oxygen Physical Therapy For: Evalulation/Treatment Occupational Therapy For: Evaluation/Treatment DISCHARGE MEDICATIONS: Home Meds Active Scripts Ipratropium/Albuterol Sulfate (DUONEB 0.5-3(2.5) MG/3 ML) 3 Ml Ampul.neb, 3 ML NEB RTQID for sob for 30 Days, #120 EACH Prov:NICOLE SMITH MD 11/14/18 Albuterol Sulfate (Proair Hfa) 8.5 Gm Hfa.aer.ad, 2.5 MG NEB PRN Q4HRS PRN for SHORTNESS OF BREATH for 30 Days, INHALER Prov:NICOLE SMITH MD 11/14/18 Acetaminophen (TYLENOL) 325 Mg Tablet, 650 MG PO PRN Q6HRS PRN for PAIN for 30 Days, TAB Prov:NICOLE SMITH MD 11/14/18 Topiramate (TOPAMAX) 25 Mg Tablet, 50 MG PO HS for seizures for 30 Days, #60 TAB Prov:NICOLE SMITH MD 11/14/18 Topiramate (TOPAMAX) 25 Mg Tablet, 25 MG PO DAILY for seizures for 30 Days, #30 TAB Prov:NICOLE SMITH MD 11/14/18 Divalproex Sodium (DEPAKOTE) 250 Mg Tablet.dr, 750 MG PO DAILY for seizures for 30 Days, #90 TAB.SR Prov:NICOLE SMITH MD 11/14/18 Divalproex Sodium (DEPAKOTE) 500 Mg Tablet.dr, 500 MG PO QHS for seizures for 30 Days, #30 TAB.SR Prov:NICOLE SMITH MD 11/14/18 Levothyroxine Sodium (SYNTHROID) 25 Mcg Tablet, 25 MCG PO DAILY07 for 30 Days, # 30 TAB Prov:HARRY DE LA VEGA MD 10/17/17 Atorvastatin Calcium (ATORVASTATIN CALCIUM) 10 Mg Tablet, 10 MG PO QHS, #30 TAB Prov:DARRYL WATSON IRASEMA 10/23/14 Reported Medications Isosorbide Mononitrate (ISOSORBIDE MONONITRATE ER) 30 Mg Tab.er.24h, 1 TAB PO DAILY, #30 TAB 5 Refills 05/04/18 Warfarin Sodium (WARFARIN SODIUM) 5 Mg Tablet, 1 TAB PO DAILY, #90 TAB 1 Refill 05/04/18 Furosemide (FUROSEMIDE) 40 Mg Tablet, 1 TAB PO DAILY for diuretic, #30 TAB 5 Refills 10/27/17 Lurasidone Hcl (LATUDA) 40 Mg Tablet, 20 MG PO QHS, #30 TAB 1 Refill 02/20/17 Montelukast Sodium (SINGULAIR TABLET) 10 Mg Tablet, 1 TAB PO HS for allergies, # 90 TAB 1 Refill 02/20/17 Olanzapine (ZYPREXA) 15 Mg Tablet, 1 TAB PO QHS, #30 TAB 02/20/17 Pregabalin (LYRICA) 50 Mg Capsule, 1 CAP PO BID, #60 CAP 02/20/17 Metoprolol Tartrate (METOPROLOL TARTRATE) 25 Mg Tablet, 1 TAB PO BID, #180 TAB 1 Refill 02/20/17 Lisinopril (LISINOPRIL) 20 Mg Tablet, 1 TAB PO DAILY, #30 TAB 5 Refills 02/20/17 Omeprazole (OMEPRAZOLE) 40 Mg Capsule.dr, 1 CAP PO DAILY, #30 CAP 3 Refills 02/20/17 Potassium Chloride (KLOR-CON M20) 20 Meq Tab.er.prt, 1 TAB PO BID, #90 TAB 1 Refill 04/14/15 Benztropine Mesylate (BENZTROPINE MESYLATE) 1 Mg Tablet, 1 TAB PO BID, #60 TAB 1 Refill 04/14/15 Fluticasone Propionate (FLUTICASONE PROPIONATE NASAL SPRAY) 16 Gm [place].susp, 2 SPRAYS NS BID for seasonal allergies 02/05/14 Discontinued Reported Medications Hydrocodone/Apap 5-325 (NORCO 5-325 TABLET) 1 Each Tablet, 1 TAB PO PRN BID PRN for PAIN, #60 TAB 11/10/18 Baclofen (BACLOFEN) 10 Mg Tablet, 1 TAB PO TID for muscle, #90 TAB 2 Refills 1/25/19 Divalproex Sodium (DIVALPROEX SODIUM) 500 Mg Tablet.dr, 1 TAB PO BID, #60 TAB 1 Refill 05/04/18 Topiramate (TOPIRAMATE) 25 Mg Tablet, 1 TAB PO BID, #60 TAB 05/04/18 Colestipol Hcl (COLESTIPOL HCL) 1 Gm Tablet, 1 GM PO TID, TAB 05/04/18 NICOLE SMITH MD Nov 15, 2018 10:02
--- NOTE | 2018-11-15 10:12 | PDOC ---
PROGRESS NOTES Assessment Possible seizure, epilepsy, left central epileptic focus on EEG Sep 2018. No further seizures Syncopal spells. Metabolic encephalopathy. 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 Increased Depakote to 750 mg am and 500 mg pm. Continue Lipitor HS. SNU FU with me 4 weeks Subjective no complaints Objective Vital Signs Date Time Temp Pulse Resp B/P (MAP) Pulse Ox O2 Delivery O2 Flow Rate FiO2 11/15/18 08:11 66 124/65 11/15/18 07:20 Room Air 11/15/18 07:19 95 11/15/18 07:00 97.8 20 97.8 Intake and Output 11/15/18 07:00 Intake Total 1160 ml Output Total 3250 ml Balance -2090 ml Intake Oral 1160 ml Output Urine Total 3250 ml PHYSICAL EXAM Alert. Oriented to time, place and person, consistent with intellectual disability. PERR, PEERl, no Adie's pupil today EOMI. CN: no focal findings. Muscle tone: normal. Muscle strength: 4/5 DTR: 1+ Plantar reflex: flexor Gait: not examined Sensory exam: no abnormal findings. No cerebellar signs elicited. Review of Relevant I have reviewed the following items yonathan (where applicable) has been applied. Labs Laboratory Tests Test 11/14/18 05:37 11/15/18 03:55 Prothrombin Time 24.3 SEC (11.7-14.0) 26.3 SEC (11.7-14.0) Prothromb Time International Ratio 2.2 (0.8-1.1) 2.4 (0.8-1.1) Laboratory Tests Test 11/15/18 03:55 Prothrombin Time 26.3 SEC (11.7-14.0) Prothromb Time International Ratio 2.4 (0.8-1.1) Medications Current Medications Sodium Chloride 1,000 ml @ 1,000 mls/hr 1X ONCE IV Last administered on at 14:36; Start 11/10/18 at 14:00; Stop 11/10/18 at 14:59; Status DC Nitroglycerin (Nitrostat) 0.4 mg PRN Q5MIN PRN SL CHEST PAIN Last administered on 11/10/18at 14:50; Start 11/10/18 at 14:30 Nitroglycerin (Nitrostat) 0.4 mg STK-MED ONCE SL ; Start 11/10/18 at 14:31; Stop 11/10/18 at 14:32; Status DC Fentanyl Citrate (Fentanyl 2ml Vial) 50 mcg 1X ONCE IV Last administered on 17:43; Start 11/10/18 at 17:30; Stop 11/10/18 at 17:31; Status DC Ondansetron HCl (Zofran) 4 mg PRN Q8HRS PRN IV NAUSEA/VOMITING; Start 11/10/18 at 18:45; Stop 11/11/18 at 18:44; Status DC Morphine Sulfate (Morphine Sulfate) 2 mg PRN Q2HR PRN IV PAIN Last administered on 11/10/18 23:16; Start 11/10/18 at 18:45; Stop 11/11/18 at 18:44 ; Status DC Atorvastatin Calcium (Lipitor) 10 mg QHS PO Last administered on 11/14/18 20:26 ; Start 11/10/18 at 23:00 Baclofen (Lioresal) 10 mg TID PO Last administered on 11/12/18 08:31; Start at 23:00; Stop 11/12/18 at 11:57; Status DC Colestipol HCl (Colestid) 1 gm TIDAC PO ; Start 11/11/18 at 07:30; Stop 11/11/18 at 11:55; Status DC Fluoxetine HCl (PROzac) 20 mg DAILY PO Last administered on 11/13/18 08:05; Start 11/11/18 at 09:00; Stop 11/13/18 at 10:31; Status DC Fluticasone Propionate (Flonase) 2 spray BID NS Last administered on 11/15/18 08:07; Start 11/11/18 at 09:00 Furosemide (Lasix) 40 mg QODAY PO Last administered on 11/14/18 07:59; Start at 09:00 Isosorbide Mononitrate (Imdur) 30 mg DAILY PO Last administered on 11/15/18 08: 11; Start 11/11/18 at 09:00 Lisinopril (Prinivil) 20 mg DAILY PO Last administered on 11/14/18 07:59; Start 11/11/18 at 09:00 Lurasidone HCl (Latuda) 20 mg QHS PO Last administered on 11/14/18 20:26; Start 11/11/18 at 21:00 Metoprolol Tartrate (Lopressor) 25 mg BID PO Last administered on 11/15/18 08: 10; Start 11/10/18 at 23:00 Potassium Chloride (Klor-Con) 20 meq BID PO Last administered on 11/15/18 08:09 ; Start 11/10/18 at 23:00 Pregabalin (Lyrica) 50 mg BID PO Last administered on 11/15/18 08:09; Start at 23:00 Benztropine Mesylate (Cogentin) 1 mg BID PO Last administered on 11/15/18 08:09 ; Start 11/10/18 at 23:00 Divalproex Sodium (Depakote) 500 mg BID PO Last administered on 11/12/18 08:24 ; Start 11/10/18 at 23:00; Stop 11/12/18 at 14:30; Status DC Levothyroxine Sodium (Synthroid) 25 mcg DAILY06 PO Last administered on 06:47; Start 11/11/18 at 06:00; Stop 11/12/18 at 05:59; Status DC Montelukast Sodium (Singulair) 10 mg QHS PO Last administered on 11/14/18 20:25 ; Start 11/10/18 at 23:00 Olanzapine (ZyPREXA) 15 mg QHS PO Last administered on 11/14/18 20:27; Start at 23:00 Pantoprazole Sodium (Protonix) 40 mg DAILYAC PO Last administered on 11/15/18 05:59; Start 11/11/18 at 07:30 Quetiapine Fumarate (SEROquel) 100 mg QHS PO Last administered on 11/12/18 20: 44; Start 11/10/18 at 23:00; Stop 11/13/18 at 10:31; Status DC Topiramate (Topamax) 25 mg BID PO Last administered on 11/13/18 08:04; Start at 09:00; Stop 11/13/18 at 14:03; Status DC Non-Formulary Medication (Warfarin Sodium ) 1 tab DAILY PO ; Start 11/11/18 at 09 :00; Status UNV Warfarin Sodium (Coumadin Per Physician) 1 each PRN DAILY PRN MC SEE COMMENTS Last administered on 11/11/18at 09:00; Start 11/10/18 at 23:00; Stop 11/11/18 at 10 :19; Status DC Warfarin Sodium (Coumadin) 5 mg 1X WARF ONCE PO Last administered on at 23:13; Start 11/10/18 at 23:00; Stop 11/10/18 at 23:01; Status DC Warfarin Sodium (Coumadin) 5 mg DAILY16 PO Last administered on 11/11/18at 17:19 ; Start 11/11/18 at 16:00; Stop 11/12/18 at 13:28; Status DC Tramadol HCl (Ultram) 50 mg PRN BID PRN PO PAIN Last administered on 11/11/18at 10:36; Start 11/11/18 at 10:15; Stop 11/12/18 at 12:03; Status DC Warfarin Sodium (Coumadin Per Pharmacy) 1 each PRN DAILY PRN MC SEE COMMENTS Last administered on 11/14/18at 11:04; Start 11/11/18 at 10:15 Enoxaparin Sodium (Lovenox 100mg Syringe) 100 mg Q12HR SQ Last administered on 11/13/18 08:06; Start 11/11/18 at 10:30; Stop 11/13/18 at 10:18; Status DC Colestipol HCl (Colestid) 1 gm TID@1000,1400,2200 PO Last administered on at 22:28; Start 11/11/18 at 14:00; Stop 11/12/18 at 10:05; Status DC Oxycodone/ Acetaminophen (Percocet 5/325) 1 tab PRN Q6HRS PRN PO PAIN Last administered on 11/11/18at 14:55; Start 11/11/18 at 14:45; Stop 11/12/18 at 11:57; Status DC Levothyroxine Sodium (Synthroid) 25 mcg DAILYAC PO Last administered on at 08:22; Start 11/12/18 at 07:30; Stop 11/12/18 at 10:06; Status DC Colestipol HCl (Colestid) 1 gm TID@0800,1300,2000 PO ; Start 11/12/18 at 13:00; Stop 11/12/18 at 13:00; Status DC Levothyroxine Sodium (Synthroid) 25 mcg DAILY06 PO Last administered on 05:59; Start 11/13/18 at 06:00 Acetaminophen (Tylenol) 650 mg PRN Q6HRS PRN PO PAIN Last administered on 20:42; Start 11/12/18 at 12:00 Warfarin Sodium (Coumadin) 5 mg DAILY16 PO ; Start 11/13/18 at 16:00; Stop at 16:00; Status DC Warfarin Sodium (Coumadin) 7.5 mg 1X WARF ONCE PO Last administered on 16:33; Start 11/12/18 at 16:00; Stop 11/12/18 at 16:01; Status DC Divalproex Sodium (Depakote) 750 mg DAILY PO Last administered on 11/15/18 08: 08; Start 11/13/18 at 09:00 Divalproex Sodium (Depakote) 500 mg QHS PO Last administered on 11/14/18 20:28 ; Start 11/12/18 at 21:00 Warfarin Sodium (Coumadin) 4 mg 1X WARF ONCE PO Last administered on 11/13/18 17:18; Start 11/13/18 at 16:00; Stop 11/13/18 at 16:01; Status DC Topiramate (Topamax) 25 mg DAILY PO Last administered on 11/15/18 08:09; Start 11/14/18 at 09:00 Topiramate (Topamax) 50 mg HS PO Last administered on 11/14/18 20:27; Start 11/13/18 at 21:00 Albuterol/ Ipratropium (Duoneb) 3 ml RTQID NEB Last administered on 11/15/18 07 :14; Start 11/13/18 at 20:00 Albuterol Sulfate (Ventolin Neb Soln) 2.5 mg PRN Q4HRS PRN NEB SHORTNESS OF BREATH; Start 11/13/18 at 19:30 Dopamine HCl/ Dextrose 250 ml @ As Directed STK-MED ONCE IV ; Start 11/14/18 at 02:38; Stop 11/14/18 at 02:39; Status DC Warfarin Sodium (Coumadin) 5 mg 1X WARF ONCE PO Last administered on 11/14/18at 16:22; Start 11/14/18 at 16:00; Stop 11/14/18 at 16:01; Status DC Dopamine HCl/ Dextrose (DOPamine 400MG/ 250ML PREMIX) 400 mg STK-MED ONCE IV ; Start 11/14/18 at 03:00; Stop 11/14/18 at 13:16; Status DC Active Scripts Active Duoneb 0.5-3(2.5) Mg/3 Ml (Albuterol/Ipratropium) 3 Ml Ampul.neb 3 Ml NEB RTQID 30 Days Proair Hfa (Albuterol Sulfate) 8.5 Gm Hfa.aer.ad 2.5 Mg NEB PRN Q4HRS PRN 30 Days Tylenol (Acetaminophen) 325 Mg Tablet 650 Mg PO PRN Q6HRS PRN 30 Days Topamax (Topiramate) 25 Mg Tablet 50 Mg PO HS 30 Days Topamax (Topiramate) 25 Mg Tablet 25 Mg PO DAILY 30 Days Depakote (Divalproex Sodium) 250 Mg Tablet.dr 750 Mg PO DAILY 30 Days Depakote (Divalproex Sodium) 500 Mg Tablet.dr 500 Mg PO QHS 30 Days Synthroid (Levothyroxine Sodium) 25 Mcg Tablet 25 Mcg PO DAILY07 30 Days Atorvastatin Calcium 10 Mg Tablet 10 Mg PO QHS Reported Isosorbide Mononitrate Er (Isosorbide Mononitrate) 30 Mg Tab.er.24h 1 Tab PO DAILY Warfarin Sodium 5 Mg Tablet 1 Tab PO DAILY Furosemide 40 Mg Tablet 1 Tab PO DAILY Latuda (Lurasidone Hcl) 40 Mg Tablet 20 Mg PO QHS Singulair Tablet (Montelukast Sodium) 10 Mg Tablet 1 Tab PO HS Zyprexa (Olanzapine) 15 Mg Tablet 1 Tab PO QHS Lyrica (Pregabalin) 50 Mg Capsule 1 Cap PO BID Metoprolol Tartrate 25 Mg Tablet 1 Tab PO BID Lisinopril 20 Mg Tablet 1 Tab PO DAILY Omeprazole 40 Mg Capsule.dr 1 Cap PO DAILY Klor-Con M20 (Potassium Chloride) 20 Meq Tab.er.prt 1 Tab PO BID Benztropine Mesylate 1 Mg Tablet 1 Tab PO BID Fluticasone Propionate Nasal [place] (Fluticasone Propionate) 16 Gm [place].susp 2 Sprays NS BID for seasonal allergies Vitals/I & O Vital Sign - Last 24 Hours 11/14/18 11/14/18 11/14/18 11/14/18 10:54 10:54 11:04 14:45 Temp 97.8 97.9 97.8 97.9 Pulse 60 62 Resp 20 20 B/P (MAP) 172/82 (112) 137/66 (89) Pulse Ox 96 96 100 94 O2 Delivery Room Air Room Air Room Air Room Air 11/14/18 11/14/18 11/14/18 11/14/18 19:05 19:45 20:00 20:28 Temp 98.0 98.0 Pulse 60 60 B/P (MAP) 123/62 (82) 123/62 Pulse Ox 96 96 O2 Delivery Room Air Room Air Room Air 11/14/18 11/15/18 11/15/18 11/15/18 23:40 03:30 07:00 07:19 Temp 98.0 97.8 97.8 98.0 97.8 97.8 Pulse 60 60 63 Resp 18 18 20 B/P (MAP) 158/82 (107) 131/65 (87) 135/65 (88) Pulse Ox 96 96 94 95 O2 Delivery Room Air Room Air Room Air Room Air 11/15/18 11/15/18 11/15/18 07:20 08:10 08:11 Pulse 68 66 B/P (MAP) 124/64 124/65 O2 Delivery Room Air Intake and Output 11/14/18 11/14/18 11/15/18 15:00 23:00 07:00 Intake Total 660 ml 500 ml Output Total 2400 ml 550 ml 300 ml Balance -2400 ml 110 ml 200 ml JUSTYNA PARKS MD Nov 15, 2018 10:12
[2018-11-15] MEDS: ACETAMINOPHEN 325 MG TABLET. PO PRN (10:39)
[2018-11-15] MEDS: LISINOPRIL 20 MG TABLET PO SCH (10:40)
[2018-11-15 11:00] VITALS: BP 133/70
--- NOTE | 2018-11-15 11:10 | NUR ---
SS following up with discharge planning. SS followed up with Rajendra Nagel. [facility] authorization for long-term unit still pending. SS will await insurance determination from [facility] and will proceed accordingly with discharge planning.
--- NOTE | 2018-11-15 14:20 | NUR ---
SS following up with discharge planning. Insurance authorization received. SS phoned and faxed discharge orders to [facility], ; fax [phone]. Pt will discharge today and go to [facility] at 1545 via [facility] transport, [id number]. Pt, pt's spouse, and pt's RN notified.
--- NOTE | 2018-11-15 15:58 | NUR ---
Discharge Note: RHETT HERNANDEZ [address] [place] [address] Discharge instructions and discharge home medications reviewed with Other facility and a copy given. All questions have been answered and understanding verbalized. The following instructions and handouts were given: discharge instructions. Discontinued lines and drains: peripheral IV intact-was already out from rail transportation tabeler. Patient discharged to [facility] ([facility]) with via Wheelchair with transportation at 1558.
[2018-11-15] MEDS ORDERED: WARFARIN 5 MG TABLET. PO ONE (16:00)
== END 2018-11-15 15:58 | DRG 100 ==
LOC: ER 13:27 → 2 NORTH 16:19
PROVIDERS: ADMIT Internal Medicine; ATTEND Internal Medicine
DX: G40.909 Epilepsy, unspecified, not intractable, without status epilepticus (principal); G93.41 Metabolic encephalopathy; R55 Syncope and collapse; E03.9 Hypothyroidism, unspecified; E66.9 Obesity, unspecified; E78.5 Hyperlipidemia, unspecified; F20.9 Schizophrenia, unspecified; F31.9 Bipolar disorder, unspecified; F41.9 Anxiety disorder, unspecified; F79 Unspecified intellectual disabilities; G47.419 Narcolepsy without cataplexy; I11.9 Hypertensive heart disease without heart failure; I25.10 Atherosclerotic heart disease of native coronary artery without angina pectoris; I35.0 Nonrheumatic aortic (valve) stenosis; M19.90 Unspecified osteoarthritis, unspecified site; I48.91 Unspecified atrial fibrillation; J44.9 Chronic obstructive pulmonary disease, unspecified; K21.9 Gastro-esophageal reflux disease without esophagitis; I49.3 Ventricular premature depolarization; I49.5 Sick sinus syndrome; Z79.01 Long term (current) use of anticoagulants; Z79.899 Other long term (current) drug therapy; Z81.8 Family history of other mental and behavioral disorders; Z68.35 Body mass index [BMI] 35.0-35.9, adult; Z82.3 Family history of stroke; Z83.3 Family history of diabetes mellitus; I25.2 Old myocardial infarction; Z90.710 Acquired absence of both cervix and uterus; Z91.041 Radiographic dye allergy status; Z91.14 Patient's other noncompliance with medication regimen; Z91.19 Patient's noncompliance with other medical treatment and regimen; Z95.0 Presence of cardiac pacemaker; Z95.1 Presence of aortocoronary bypass graft; Z95.2 Presence of prosthetic heart valve; Z95.5 Presence of coronary angioplasty implant and graft; Z82.49 Family history of ischemic heart disease and other diseases of the circulatory system; Z82.5 Family history of asthma and other chronic lower respiratory diseases; Z90.10 Acquired absence of unspecified breast and nipple; Z88.0 Allergy status to penicillin; Z88.2 Allergy status to sulfonamides; Z88.6 Allergy status to analgesic agent; Z91.040 Latex allergy status; Z90.49 Acquired absence of other specified parts of digestive tract; I69.398 Other sequelae of cerebral infarction
CPT/HCPCS: 36415; 70450; 71045; 80048; 80053; 80061; 80164; 80307; 81001; 82553; 83690; 83735; 83880; 84443; 84484; 85025; 85610; 93005; 94640; 94760; 95816; 96360; G0480; J1265; J1650; J2270; J3010; J7030; J7620; 97110; 97116; 97530; 97535; 99285-25

== ENCOUNTER 2018-12-16 11:21 | Emergency (ER) | payer OTHER ==
[~2018-12-16] VITALS: Ht 154.9 cm; Wt 90.3 kg
[~2018-12-16 11:21] MED LIST changes: +ALBU2.5V8 NEB; +DIVA250T4 PO; +DIVA500T2 PO; +IPRA3AMP29 NEB; +TOPI25TA52 PO
--- NOTE | 2018-12-16 12:12 | PHYS DOC ---
Past Medical History Past Medical History: A-Fib, Anxiety, Bipolar, CVA, Hypertension, ND, Schizophrenia, Other Additional Past Medical Histor: HALLUCINATIONS, AORTIC VALVE DISORDERS, mi 1996 , kidney problems Past Surgical History: Cholecystectomy, Pacemaker, Other Additional Past Surgical Histo: HERNIA REPAIR, AORTIC VALVE REPLACEMENT; with defibrilator Alcohol Use: None Drug Use: None Adult General Chief Complaint Chief Complaint: CHEST PAIN HPI HPI Patient is a 58 year old female who presents with chest pain. Onset was 09: 30a. She describes a sharp pain located to the lower chest on the left side. Pt describes the pain as sharp and constant. She denies radiation of the pain and rates it a 10/10. Pt states she took 3 nitro this morning and it has not helped. Complains of nausea, palpitations, some SOA and lightheadedness. Denies vomiting, syncope, edema, fever, chills. States the pain is not worse with activity. She had a cold 3 weeks ago. Pt has a hx of one prior ND and does not think she has any stents. States the pain is similar to her previous ND. She also states she has CHF and an artificial valve. Denies hx of blood clots. She says morphine helps her pain[] Review of Systems Review of Systems Constitutional: Denies fever or chills [] Eyes: Denies change in visual acuity, redness, or eye pain [] HENT: Denies nasal congestion or sore throat [] Respiratory: Denies cough. Complains of shortness of breath [] Cardiovascular: No additional information not addressed in HPI [] GI: Denies abdominal pain, vomiting, bloody stools or diarrhea. Complains of nausea[] : Denies dysuria or hematuria [] Musculoskeletal: Denies back pain or joint pain [] All other systems were reviewed and found to be within normal limits, except as documented in this note. Current Medications Current Medications Current Medications Medications (Trade) Dose Ordered Sig/Galilea Start Time Stop Time Status Last Admin Dose Admin Morphine Sulfate (Morphine Sulfate) 4 mg 1X ONCE 12/16/18 12:15 12/16/18 12:16 DC 12/16/18 13:16 4 MG Allergies Allergies Allergies Coded Allergies Type Severity Reaction Last Updated Verified Sulfa (Sulfonamide Antibiotics) Allergy Severe rash, tongue swelling 04/15/15 Yes Iodinated Contrast- Oral and IV Dye Allergy Intermediate rash 04/15/15 Yes Penicillins Allergy Intermediate Hives 04/15/15 Yes aspirin Allergy Intermediate Hives 04/15/15 Yes codeine Allergy Intermediate Hives; SEE COMMENT 06/08/15 Yes diphenhydramine HCl Allergy Intermediate rash 12/19/13 Yes latex Allergy Intermediate Rash 12/18/13 Yes Physical Exam Physical Exam Constitutional: Well developed, well nourished, mild distress, non-toxic appearance. [] HENT: Normocephalic, atraumatic, bilateral external ears normal, oropharynx moist, no oral exudates, nose normal. [] Eyes: PERRLA, EOMI, conjunctiva normal, no discharge. [] Neck: Normal range of motion, no tenderness, supple, no stridor. [] Cardiovascular:Heart rate regular rhythm, no murmur [] Lungs & Thorax: Bilateral breath sounds clear to auscultation []mild tachypnea noted, resolved on re-eval Abdomen: Bowel sounds normal, soft, no tenderness, no masses, no pulsatile masses. [] Skin: Warm, dry, no erythema, no rash. [] Back: No tenderness, no CVA tenderness. [] Extremities: No tenderness, no cyanosis, no clubbing, ROM intact, ONE PLUS edema. [] Neurologic: Alert and oriented X 3, normal motor function, normal sensory function, no focal deficits noted. [] Psychologic: Affect normal, judgement normal, mood normal. [] Current Patient Data Vital Signs Vital Signs Date Time Temp Pulse Resp B/P (MAP) Pulse Ox O2 Delivery O2 Flow Rate FiO2 12/16/18 13:16 12 95 Room Air 12/16/18 11:30 97.4 67 147/92 (110) 97.4 Lab Values Laboratory Tests Test 12/16/18 12:45 12/16/18 15:00 White Blood Count 5.7 x10^3/uL (4.0-11.0) Red Blood Count 5.03 x10^6/uL (3.50-5.40) Hemoglobin 14.1 g/dL (12.0-15.5) Hematocrit 42.4 % (36.0-47.0) Mean Corpuscular Volume 84 fL (79-100) Mean Corpuscular Hemoglobin 28 pg (25-35) Mean Corpuscular Hemoglobin Concent 33 g/dL (31-37) Red Cell Distribution Width 14.5 % (11.5-14.5) Platelet Count 147 x10^3/uL (140-400) Neutrophils (%) (Auto) 63 % (31-73) Lymphocytes (%) (Auto) 28 % (24-48) Monocytes (%) (Auto) 7 % (0-9) Eosinophils (%) (Auto) 1 % (0-3) Basophils (%) (Auto) 0 % (0-3) Neutrophils # (Auto) 3.6 x10^3uL (1.8-7.7) Lymphocytes # (Auto) 1.6 x10^3/uL (1.0-4.8) Monocytes # (Auto) 0.4 x10^3/uL (0.0-1.1) Eosinophils # (Auto) 0.1 x10^3/uL (0.0-0.7) Basophils # (Auto) 0.0 x10^3/uL (0.0-0.2) Prothrombin Time 42.0 SEC (11.7-14.0) H Prothrombin Time INR 4.4 (0.8-1.1) H Sodium Level 146 mmol/L (136-145) H Potassium Level 3.5 mmol/L (3.5-5.1) Chloride Level 107 mmol/L (98-107) Carbon Dioxide Level 29 mmol/L (21-32) Anion Gap 10 (6-14) Blood Urea Nitrogen 15 mg/dL (7-20) Creatinine 0.5 mg/dL (0.6-1.0) L Estimated GFR (Cockcroft-Gault) 126.7 BUN/Creatinine Ratio 30 (6-20) H Glucose Level 100 mg/dL (70-99) H Calcium Level 9.2 mg/dL (8.5-10.1) Total Bilirubin 0.4 mg/dL (0.2-1.0) Aspartate Amino Transferase (AST) 14 U/L (15-37) L Alanine Aminotransferase (ALT) 14 U/L (14-59) Alkaline Phosphatase 63 U/L (46-116) Troponin I Quantitative < 0.017 ng/mL (0.000-0.055) < 0.017 ng/mL (0.000-0.055) Total Protein 6.9 g/dL (6.4-8.2) Albumin 3.6 g/dL (3.4-5.0) Albumin/Globulin Ratio 1.1 (1.0-1.7) Laboratory Tests 12/16/18 12:45 Laboratory Tests 12/16/18 12:45 EKG EKG [] Interpretation Time: EKG shows normal sinus rhythm there are some subtle ST depressions noted in V3 through V6 compared to EKG dated every 2018 EKG is no longer paced and these ST segments were overall similar to previous Radiology/Procedures Radiology/Procedures [] Impressions: The study is compared with November 10, 2018. Pacemaker redemonstrated. Heart size remains enlarged, stable. No pneumothorax. No pleural effusion. No infiltrate is identified. The aorta is mildly tortuous. IMPRESSION: Stable exam, no evidence of acute consolidating infiltrate. Electronically signed by: Efrem Guzmán MD (12/16/2018 1:12 PM) [id number] DICTATED and SIGNED BY: EFREM GUZMÁN MD DATE: 12/16/18 1312 Course & Med Decision Making Course & Med Decision Making Pertinent Labs and Imaging studies reviewed. (See chart for details) []INR 4.4 this is a 58-year-old female with known coronary artery disease aortic valve on Coumadin multiple presentations and admissions last stress test was 2017 showed no obvious acute pathology presenting with chest pain left- sided some typical some atypical features chest x-ray showed nothing new I think PE given her INR is very unlikely. in the er felt better after morphine (which she told me usually helps her) but then was nauseous. serial troponins negative, ekg essentially unchagned. i d/w leif, who knows this patient well and tells me that he admits her pretty much every month he feels that the troponins are negative given her very frequent admissions and presentations, and negative mpi last year, he recommends sending her home. upon detailed review of her history i think this seems reasonable. second trop neg, the chest pain is improving in er some nausea overall but at this point stable for d/c home. short course of symtomatic tx provided, pmd f/u recommended. also i advised hold coumadin for 1-2 days then restart usual dose and f/u for recheck next week. Dragon Disclaimer Dragon Disclaimer This electronic medical record was generated, in whole or in part, using a voice recognition dictation system. Departure Departure Impression: Primary Impression: Chest pain Additional Impression: Supratherapeutic INR Disposition: 01 HOME, SELF-CARE Condition: STABLE Referrals: RUBIO CASTELLANOS (PCP) Scripts Hydrocodone/Apap 5-325 (NORCO 5-325 TABLET) 1 Each Tablet 1-2 EACH PO PRN Q6HRS PRN for PAIN, #10 as needed for pain Prov: BESS HEALY MD 12/16/18 Ondansetron Hcl (ZOFRAN) 4 Mg Tablet 4 MG PO PRN TID PRN for NAUSEA/VOMITING, #15 nausea/vomiting Prov: BESS HEALY MD 12/16/18 Problem Qualifiers BESS HEALY MD Dec 16, 2018 12:12
[2018-12-16] MEDS ORDERED: MORPHINE SULFATE 4 MG/ML VIAL. IV ONE (12:15)
--- NOTE | 2018-12-16 12:28 | EKG ---
[facility] [address] [place] [address] Test Date: 2018-12-16 Test Time: 11:31:54 Pat Name: RHETT HERNANDEZ Department: Room: Gender: F Account Officer: : 1960 Requested By: BESS HEALY Order Number: [id number] Reading MD: Josh Hayes MD Measurements Intervals [place] Rate: 79 P: -39 AR: 190 QRS: 9 QRSD: 84 T: 20 QT: 378 QTc: 439 Interpretive Statements SINUS RHYTHM T ABNORMALITY IN ANTERIOR LEADS NON SPECIFIC ST DEPRESSION ABNORMAL ECG Electronically Signed On 12-20-2018 14:56:36 CDT by Josh Hayes MD
[2018-12-16 12:59] LABS: BASO % 0 % (0-3); EOS # 0.1 x10^3/uL (0.0-0.7); EOS % 1 % (0-3); HEMATOCRIT 42.4 % (36.0-47.0); HEMOGLOBIN 14.1 g/dL (12.0-15.5); LYMPH # 1.6 x10^3/uL (1.0-4.8); LYMPH % 28 % (24-48); MEAN CORPUSCULAR HEMOGLOBIN 28 pg (25-35); MEAN CORPUSCULAR HGB CONC 33 g/dL (31-37); MEAN CORPUSCULAR VOLUME 84 fL (79-100); MONO # 0.4 x10^3/uL (0.0-1.1); MONO % 7 % (0-9); NEUT # 3.6 x10^3uL (1.8-7.7); NEUT % 63 % (31-73); PLATELET COUNT 147 x10^3/uL (140-400); RED BLOOD COUNT 5.03 x10^6/uL (3.50-5.40); RED CELL DISTRIBUTION WIDTH 14.5 % (11.5-14.5); WHITE BLOOD COUNT 5.7 x10^3/uL (4.0-11.0)
--- NOTE | 2018-12-16 13:15 | RAD ---
PORTABLE CHEST 1V History: CHEST PAIN. The study is compared with November 10, 2018. Pacemaker redemonstrated. Heart size remains enlarged, stable. No pneumothorax. No pleural effusion. No infiltrate is identified. The aorta is mildly tortuous. IMPRESSION: Stable exam, no evidence of acute consolidating infiltrate. Electronically signed by: Efrem Guzmán MD (12/16/2018 1:12 PM) [id number]
[2018-12-16 13:22] LABS: CALCIUM 9.2 mg/dL (8.5-10.1); CREATININE 0.5 mg/dL (0.6-1.0); GFR 126.7; POTASSIUM 3.5 mmol/L (3.5-5.1)
[2018-12-16 13:26] LABS: ALBUMIN 3.6 g/dL (3.4-5.0); ALBUMIN/GLOBULIN RATIO 1.1 (1.0-1.7); TOTAL BILIRUBIN 0.4 mg/dL (0.2-1.0); TOTAL PROTEIN 6.9 g/dL (6.4-8.2)
[2018-12-16] MEDS ORDERED: ONDA4TAB7 PO (16:34)
[2018-12-16] MEDS ORDERED: HYDR-3164 PO (16:34)
[2018-12-16 16:53] VITALS: BP 144/81
== END 2018-12-16 17:10 | disposition home or self-care (01) ==
LOC: ER 11:21
DX: R07.89 Other chest pain (principal); R79.1 Abnormal coagulation profile; R42 Dizziness and giddiness; R06.02 Shortness of breath; I25.10 Atherosclerotic heart disease of native coronary artery without angina pectoris; Z79.01 Long term (current) use of anticoagulants; F31.9 Bipolar disorder, unspecified; I48.91 Unspecified atrial fibrillation; F41.9 Anxiety disorder, unspecified; I10 Essential (primary) hypertension; F20.9 Schizophrenia, unspecified; I25.2 Old myocardial infarction; Z86.73 Personal history of transient ischemic attack (TIA), and cerebral infarction without residual deficits; Z95.810 Presence of automatic (implantable) cardiac defibrillator; Z88.0 Allergy status to penicillin; Z88.2 Allergy status to sulfonamides; Z91.041 Radiographic dye allergy status; Z88.5 Allergy status to narcotic agent; Z88.6 Allergy status to analgesic agent; Z91.040 Latex allergy status
CPT/HCPCS: 36415; 71045; 80053; 84484; 85025; 85610; 93005; 96374; 99284; J2270

== ENCOUNTER 2018-12-20 09:42 | Emergency (ER) | payer OTHER ==
[~2018-12-20] VITALS: Ht 156.2 cm; Wt 86.6 kg
[~2018-12-20 09:42] MED LIST changes: +ONDA4TAB7 PO
[2018-12-20] MEDS ORDERED: FAMOTIDINE 20 MG/2 ML VIAL IVP ONE (10:00)
[2018-12-20] MEDS ORDERED: ONDANSETRON PF 4 MG/2 ML VIAL. IV ONE (10:00)
[2018-12-20] MEDS ORDERED: IV NORMAL SALINE 1000ML BAG 1,000 ML IV ONE (10:00)
[2018-12-20 10:13] LABS: BILIRUBIN,URINE NEGATIVE (NEG); CLARITY,URINE CLEAR; COLOR,URINE YELLOW; NITRITE,URINE NEGATIVE (NEG); PH,URINE 8.5; PROTEIN,URINE NEGATIVE (NEG-TRACE)
[2018-12-20 10:26] LABS: SQUAMOUS EPITHELIAL CELL,UR MANY /LPF
[2018-12-20 10:28] LABS: BACTERIA,URINE FEW /HPF (0-FEW); RBC,URINE 0 /HPF (0-2)
[2018-12-20] MEDS ORDERED: fentaNYL PF VIAL 100 MCG/2 ML VIAL IV ONE (10:45)
--- NOTE | 2018-12-20 10:58 | PHYS DOC ---
Past Medical History Past Medical History: A-Fib, Anxiety, Bipolar, CVA, Hypertension, [place], Schizophrenia, Other Additional Past Medical Histor: HALLUCINATIONS, AORTIC VALVE DISORDERS, mi 1996 , kidney problems Past Surgical History: Cholecystectomy, Pacemaker, Other Additional Past Surgical Histo: HERNIA REPAIR, AORTIC VALVE REPLACEMENT; with defibrilator Alcohol Use: Sober Drug Use: None Adult General Chief Complaint Chief Complaint: NAUSEA/VOMITING/DIARRHA HPI HPI Patient is a 58 year old female who presents with abdominal pain, nausea, vomiting, diarrhea for the past four days. Patient states that her stools have been dark for the past few days and she has had some streaks of blood in her vomit. Patient states she has been having about six episodes of diarrhea daily. Abdominal pain is constant, worse in the epigastric area, and she currently rates it to be 9/10. Patient has a history of a hiatal hernia is currently on Reglan, Zofran, Dicyclomine, and Promethazine. Patient states that she was unable to take any of her medication this morning secondary to nausea and vomiting. Patient states that she had an EGD and colonoscopy about one year ago which her normal apart from the hiatal hernia. Patient was evaluated by her PCP yesterday who recommended that she be reevaluated today if her symptoms continued to worsen. Denies any aggravating and alleviating factors. Denies radiation of the pain. Review of Systems Review of Systems Constitutional: Denies fever or chills Eyes: Denies change in visual acuity or eye pain HENT: Denies nasal congestion or sore throat Respiratory: Denies cough or shortness of breath Cardiovascular: Denies chest pain or palpitations. GI: Reports nausea, vomiting, diarrhea, and abdominal pain. : Denies dysuria or hematuria Musculoskeletal: Denies back pain or joint pain Integument: Denies rash or skin lesions Neurologic: Denies focal weakness or sensory changes Complete systems were reviewed and found to be within normal limits, except as documented in this note. Current Medications Current Medications Current Medications Medications (Trade) Dose Ordered Sig/Galilea Start Time Stop Time Status Last Admin Dose Admin Famotidine (Pepcid Vial) 20 mg 1X ONCE 12/20/18 10:00 12/20/18 10:01 DC 12/20/18 10:30 20 MG Fentanyl Citrate (Fentanyl 2ml Vial) 50 mcg 1X ONCE 12/20/18 10:45 12/20/18 10:47 DC 12/20/18 10:59 50 MCG Ondansetron HCl (Zofran) 4 mg 1X ONCE 12/20/18 10:00 12/20/18 10:01 DC 12/20/18 10:34 4 MG Sodium Chloride 1,000 ml @ 1,000 mls/hr 1X ONCE 12/20/18 10:00 12/20/18 10:59 DC 12/20/18 10:28 1,000 MLS/HR Allergies Allergies Allergies Coded Allergies Type Severity Reaction Last Updated Verified Sulfa (Sulfonamide Antibiotics) Allergy Severe rash, tongue swelling 04/15/15 Yes Iodinated Contrast- Oral and IV Dye Allergy Intermediate rash 04/15/15 Yes Penicillins Allergy Intermediate Hives 04/15/15 Yes aspirin Allergy Intermediate Hives 04/15/15 Yes codeine Allergy Intermediate Hives; SEE COMMENT 06/08/15 Yes diphenhydramine HCl Allergy Intermediate rash 12/19/13 Yes latex Allergy Intermediate Rash 12/18/13 Yes Physical Exam Physical Exam Constitutional: Well developed, well nourished, non-toxic appearance. HENT: Normocephalic, atraumatic, oropharynx moist, nose normal. Eyes: PERRL, EOMI, conjunctiva normal, no discharge. Neck: Normal range of motion, supple, no stridor. Cardiovascular:Heart rate regular rhythm, no murmur Lungs & Thorax: Bilateral breath sounds clear to auscultation. No wheezes or rhonchi. Abdomen: Bowel sounds normal, soft, diffuse tenderness on palpation, worse in epigastric area. No rebound, guarding, or rigidity. Skin: Warm, dry. Back: No tenderness, no CVA tenderness. Extremities: No tenderness, no cyanosis, ROM intact, no edema. Rectal: Grossly stool appears yellow-brown without any gross blood. A female geological sample tester, RN, was present during the entire examination. Neurologic: Alert and oriented X3, normal motor function, normal sensory function, no focal deficits noted. Psychologic: Affect flat. Normal speech. Current Patient Data Vital Signs Vital Signs Date Time Temp Pulse Resp B/P (MAP) Pulse Ox O2 Delivery O2 Flow Rate FiO2 12/20/18 12:22 60 18 154/89 (110) 99 Nasal Cannula 2.0 12/20/18 09:58 98.2 98.2 Lab Values Laboratory Tests Test 12/20/18 09:57 12/20/18 11:15 Urine Collection Type Unknown Urine Color Yellow Urine Clarity Clear Urine pH 8.5 Urine Specific [place] 1.020 Urine Protein Negative mg/dL (NEG-TRACE) Urine Glucose (UA) Negative mg/dL (NEG) Urine Ketones (Stick) Trace mg/dL (NEG) Urine Blood Negative (NEG) Urine Nitrite Negative (NEG) Urine Bilirubin Negative (NEG) Urine Urobilinogen Dipstick 1.0 mg/dL (0.2 mg/dL) Urine Leukocyte Esterase Negative (NEG) Urine RBC 0 /HPF (0-2) Urine WBC 1-4 /HPF (0-4) Urine Squamous Epithelial Cells Many /LPF Urine Bacteria Few /HPF (0-FEW) Urine Mucus Mod /LPF White Blood Count 5.4 x10^3/uL (4.0-11.0) Red Blood Count 4.93 x10^6/uL (3.50-5.40) Hemoglobin 13.8 g/dL (12.0-15.5) Hematocrit 41.8 % (36.0-47.0) Mean Corpuscular Volume 85 fL (79-100) Mean Corpuscular Hemoglobin 28 pg (25-35) Mean Corpuscular Hemoglobin Concent 33 g/dL (31-37) Red Cell Distribution Width 14.0 % (11.5-14.5) Platelet Count 132 x10^3/uL (140-400) L Neutrophils (%) (Auto) 66 % (31-73) Lymphocytes (%) (Auto) 24 % (24-48) Monocytes (%) (Auto) 9 % (0-9) Eosinophils (%) (Auto) 1 % (0-3) Basophils (%) (Auto) 0 % (0-3) Neutrophils # (Auto) 3.6 x10^3uL (1.8-7.7) Lymphocytes # (Auto) 1.3 x10^3/uL (1.0-4.8) Monocytes # (Auto) 0.5 x10^3/uL (0.0-1.1) Eosinophils # (Auto) 0.0 x10^3/uL (0.0-0.7) Basophils # (Auto) 0.0 x10^3/uL (0.0-0.2) Sodium Level 144 mmol/L (136-145) Potassium Level 4.2 mmol/L (3.5-5.1) Chloride Level 105 mmol/L (98-107) Carbon Dioxide Level 33 mmol/L (21-32) H Anion Gap 6 (6-14) Blood Urea Nitrogen 14 mg/dL (7-20) Creatinine 0.7 mg/dL (0.6-1.0) Estimated GFR (Cockcroft-Gault) 85.9 BUN/Creatinine Ratio 20 (6-20) Glucose Level 99 mg/dL (70-99) Lactic Acid Level 0.7 mmol/L (0.4-2.0) Calcium Level 8.3 mg/dL (8.5-10.1) L Magnesium Level 1.7 mg/dL (1.8-2.4) L Total Bilirubin 0.5 mg/dL (0.2-1.0) Aspartate Amino Transferase (AST) 16 U/L (15-37) Alanine Aminotransferase (ALT) 16 U/L (14-59) Alkaline Phosphatase 67 U/L (46-116) Total Protein 6.1 g/dL (6.4-8.2) L Albumin 3.3 g/dL (3.4-5.0) L Albumin/Globulin Ratio 1.2 (1.0-1.7) Lipase 62 U/L (73-393) L Laboratory Tests 12/20/18 11:15 Laboratory Tests 12/20/18 11:15 EKG EKG [] Radiology/Procedures Radiology/Procedures [] Impressions: PROCEDURE: CT ABDOMEN PELVIS WO CONTRAST Examination: CT ABDOMEN PELVIS WO CONTRAST History: abdominal pain, N/V/D
PREVIOUS
NO IV CONTRAST DUE TO IODINE ALLERGIES Comparison/Correlation: 02/11/2018 CT abdomen and pelvis without contrast Findings: Axial images of the abdomen and pelvis were obtained without contrast. Sagittal and coronal reformatted images were provided. Sternal wires are present. Pacemaker lead is present within the right ventricle. Visualized lung bases are unremarkable. Epigastric level ventral hernia defect measuring 2.6 cm transverse is present with herniation of omental fat. Cholecystectomy noted. Calcific granulomas involve the liver. Spleen is unremarkable. A splenule is present. Diffuse fatty infiltration of the pancreas is present. No radiopaque collecting system calculi. No extraluminal gas. No bowel obstruction. Moderate quantity of stool in the colon noted. No inflammatory change about the cecum. Appendix appears to be present and unremarkable. Minimal diverticulosis of the colon. No enlarged abdominal or pelvic lymph nodes. Infraumbilical 2.1 cm diameter midline hernia defect is present containing omental fat. Abdominal aortic diameter is normal. Urinary bladder is unremarkable. T11 vertebral body wedge deformity is present but may be developmental. Impression: No acute inflammatory process or obstruction. No radiopaque collecting system calculi. Epigastric level ventral midline abdominal wall hernia. Infraumbilical abdominal wall hernia. Minimal diverticulosis. PQRS Compliance Statement: One or more of the following individualized dose reduction techniques were utilized for this examination: 1. Automated exposure control 2. Adjustment of the mA and/or kV according to patient size 3. Use of iterative reconstruction technique Course & Med Decision Making Course & Med Decision Making Patient is a 58 year old female who presents to the ED for evaluation of abdominal pain, nausea, vomiting, and diarrhea. CT abdomen/pelvis ordered as patient has not had a recent scan. Patient treated with Fentanyl, Zofran, Pepcid, and fluids in the ED. Pertinent Labs and Imaging studies reviewed. (See chart for details). CT reveals an epigastric midline abdominal wall hernia and an infraumbilical abdominal wall hernia, but no acute abnormalities. Fecal occult testing unobtainable due to lack of sample. There were no signs of gross bleeding on rectal exam. Prescription for Hyoscyamine given for bowel cramping and Zofran ODT given for nausea. Patient is stable for discharge home with close follow up with her PCP. Patient and her family verbalized understanding and agreed with plan. Dragon Disclaimer Dragon Disclaimer This electronic medical record was generated, in whole or in part, using a voice recognition dictation system. Departure Departure Impression: Primary Impression: Nausea vomiting and diarrhea Disposition: 01 HOME, SELF-CARE Condition: STABLE Referrals: RUBIO CASTELLANOS (PCP) [facility] [place] MD Patient Instructions: Diarrhea, [id number], Diet for Diarrhea, Adult, Nausea and Vomiting, [id number] Scripts Hyoscyamine Sulfate (LEVSIN-SL) 0.125 Mg Tab.subl 1 TAB SL PRN Q4HRS PRN for PAIN, #20 TAB Prov: JANI QUINTANILLA DO 12/20/18 Ondansetron (ONDANSETRON ODT) 4 Mg Tab.rapdis 1 TAB PO PRN Q6-8HRS PRN for NAUSEA, #16 TAB Prov: JANI QUINTANILLA DO 12/20/18 JANI QUINTANILLA DO Dec 20, 2018 10:58
--- NOTE | 2018-12-20 11:28 | RAD ---
Examination: CT ABDOMEN PELVIS WO CONTRAST History: abdominal pain, N/V/D
PREVIOUS
NO IV CONTRAST DUE TO IODINE ALLERGIES Comparison/Correlation: 02/11/2018 CT abdomen and pelvis without contrast Findings: Axial images of the abdomen and pelvis were obtained without contrast. Sagittal and coronal reformatted images were provided. Sternal wires are present. Pacemaker lead is present within the right ventricle. Visualized lung bases are unremarkable. Epigastric level ventral hernia defect measuring 2.6 cm transverse is present with herniation of omental fat. Cholecystectomy noted. Calcific granulomas involve the liver. Spleen is unremarkable. A splenule is present. Diffuse fatty infiltration of the pancreas is present. No radiopaque collecting system calculi. No extraluminal gas. No bowel obstruction. Moderate quantity of stool in the colon noted. No inflammatory change about the cecum. Appendix appears to be present and unremarkable. Minimal diverticulosis of the colon. No enlarged abdominal or pelvic lymph nodes. Infraumbilical 2.1 cm diameter midline hernia defect is present containing omental fat. Abdominal aortic diameter is normal. Urinary bladder is unremarkable. T11 vertebral body wedge deformity is present but may be developmental. Impression: No acute inflammatory process or obstruction. No radiopaque collecting system calculi. Epigastric level ventral midline abdominal wall hernia. Infraumbilical abdominal wall hernia. Minimal diverticulosis. PQRS Compliance Statement: One or more of the following individualized dose reduction techniques were utilized for this examination: 1. Automated exposure control 2. Adjustment of the mA and/or kV according to patient size 3. Use of iterative reconstruction technique Electronically signed by: Ruben Last MD (12/20/2018 11:25 AM) [facility]
[2018-12-20 11:41] LABS: BASO % 0 % (0-3); EOS % 1 % (0-3); HEMATOCRIT 41.8 % (36.0-47.0); HEMOGLOBIN 13.8 g/dL (12.0-15.5); LYMPH # 1.3 x10^3/uL (1.0-4.8); LYMPH % 24 % (24-48); MEAN CORPUSCULAR HEMOGLOBIN 28 pg (25-35); MEAN CORPUSCULAR HGB CONC 33 g/dL (31-37); MEAN CORPUSCULAR VOLUME 85 fL (79-100); MONO # 0.5 x10^3/uL (0.0-1.1); MONO % 9 % (0-9); NEUT # 3.6 x10^3uL (1.8-7.7); NEUT % 66 % (31-73); PLATELET COUNT 132 x10^3/uL (140-400); RED BLOOD COUNT 4.93 x10^6/uL (3.50-5.40); WHITE BLOOD COUNT 5.4 x10^3/uL (4.0-11.0)
[2018-12-20 11:49] LABS: CALCIUM 8.3 mg/dL (8.5-10.1); CREATININE 0.7 mg/dL (0.6-1.0); GFR 85.9; POTASSIUM 4.2 mmol/L (3.5-5.1)
[2018-12-20 11:54] LABS: ALBUMIN 3.3 g/dL (3.4-5.0); ALBUMIN/GLOBULIN RATIO 1.2 (1.0-1.7); MAGNESIUM 1.7 mg/dL (1.8-2.4); TOTAL BILIRUBIN 0.5 mg/dL (0.2-1.0); TOTAL PROTEIN 6.1 g/dL (6.4-8.2)
[2018-12-20 12:22] VITALS: BP 154/89
[2018-12-20] MEDS ORDERED: ONDA4TAB12 PO (12:34)
[2018-12-20] MEDS ORDERED: HYOS0.1265 SL (12:34)
== END 2018-12-20 12:40 | disposition home or self-care (01) ==
LOC: ER 09:42
DX: R11.2 Nausea with vomiting, unspecified (principal); R19.7 Diarrhea, unspecified; R10.84 Generalized abdominal pain; I48.91 Unspecified atrial fibrillation; F41.9 Anxiety disorder, unspecified; F31.9 Bipolar disorder, unspecified; I10 Essential (primary) hypertension; I25.2 Old myocardial infarction; F20.9 Schizophrenia, unspecified; Z86.73 Personal history of transient ischemic attack (TIA), and cerebral infarction without residual deficits; Z95.0 Presence of cardiac pacemaker; Z90.49 Acquired absence of other specified parts of digestive tract; Z95.2 Presence of prosthetic heart valve; Z88.6 Allergy status to analgesic agent; Z88.5 Allergy status to narcotic agent; Z88.2 Allergy status to sulfonamides; Z88.8 Allergy status to other drugs, medicaments and biological substances; Z91.041 Radiographic dye allergy status; Z91.040 Latex allergy status
CPT/HCPCS: 36415; 74176; 80053; 81001; 83605; 83690; 83735; 85025; 96361; 96374; 96375; 99284; J2405; J3010; J3490; J7030

== ENCOUNTER 2018-12-21 17:55 | Inpatient (IN) | payer OTHER ==
[~2018-12-21] VITALS: Ht 154.9 cm; Wt 86.6 kg
[~2018-12-21 17:55] MED LIST changes: +HYOS0.1265 SL; +ONDA4TAB12 PO
[2018-12-21] MEDS ORDERED: ONDANSETRON PF 4 MG/2 ML VIAL. IV ONE (18:45)
[2018-12-21] MEDS ORDERED: IV NORMAL SALINE 1000ML BAG 1,000 ML IV ONE (18:45)
--- NOTE | 2018-12-21 19:17 | RAD ---
INDICATION: fall, hit head, prior sent COMPARISON: November 10, 2018 TECHNIQUE: Axial CT images obtained through the head without intravenous contrast. One or more of the following individualized dose reduction techniques were utilized for this examination: 1. Automated exposure control; 2. Adjustment of the mA and/or kV according to patient size; 3. Use of iterative reconstruction technique. FINDINGS: No intracranial hemorrhage. No midline shift. Basal cisterns patents. Ventricles and sulci are globally prominent. No acute osseous abnormality. Orbits and paranasal sinuses unremarkable. Scattered foci of low attenuation within the white matter. IMPRESSION: 1. No acute intracranial hemorrhage. 2. Scattered regions of low attenuation within the white matter. Non-specific in nature but frequently secondary to chronic small vessel ischemic disease. 3. Prominence of ventricles and sulci which is frequently secondary to age related volume loss. Electronically signed by: Thom Laguerre MD (12/21/2018 7:14 PM) [facility]
[2018-12-21 20:16] LABS: BASO % 0 % (0-3); EOS # 0.1 x10^3/uL (0.0-0.7); EOS % 1 % (0-3); HEMATOCRIT 45.3 % (36.0-47.0); HEMOGLOBIN 15.2 g/dL (12.0-15.5); LYMPH % 24 % (24-48); MEAN CORPUSCULAR HEMOGLOBIN 28 pg (25-35); MEAN CORPUSCULAR HGB CONC 34 g/dL (31-37); MEAN CORPUSCULAR VOLUME 84 fL (79-100); MONO # 0.7 x10^3/uL (0.0-1.1); MONO % 9 % (0-9); NEUT # 5.6 x10^3uL (1.8-7.7); NEUT % 67 % (31-73); PLATELET COUNT 183 x10^3/uL (140-400); RED BLOOD COUNT 5.42 x10^6/uL (3.50-5.40); RED CELL DISTRIBUTION WIDTH 14.2 % (11.5-14.5); WHITE BLOOD COUNT 8.5 x10^3/uL (4.0-11.0)
[2018-12-21 20:21] LABS: BILIRUBIN,URINE SMALL (NEG); CLARITY,URINE CLOUDY; COLOR,URINE AMBER; NITRITE,URINE NEGATIVE (NEG); PROTEIN,URINE NEGATIVE (NEG-TRACE)
--- NOTE | 2018-12-21 20:22 | PHYS DOC ---
Past Medical History Past Medical History: A-Fib, Anxiety, Bipolar, CVA, Hypertension, [place], Schizophrenia, Other Additional Past Medical Histor: HALLUCINATIONS, AORTIC VALVE DISORDERS, mi 1996 , kidney problems Past Surgical History: Cholecystectomy, Pacemaker, Other Additional Past Surgical Histo: HERNIA REPAIR, AORTIC VALVE REPLACEMENT; with defibrilator Alcohol Use: Sober Drug Use: None Adult General Chief Complaint Chief Complaint: SYNCOPE HPI HPI 58-year-old female with multiple medical problems presents with a several day history of intractable nausea vomiting and inability to eat and a couple of syncopal episodes. Patient states she's been to her doctor as well as the emergency department 2 times in the last few days prior to this visit. She denies any fever chills or sweats. She denies any abdominal pain. She did pass out today and states she hit her forehead. She denies any chest pain or palpitations. She states she feels so weak now that she's been unable to get up and around. She was so weak today that she called EMS. EMS did check orthostatic vital signs which apparently were normal.] Review of Systems Review of Systems Constitutional: Denies fever or chills [] Eyes: Denies change in visual acuity, redness, or eye pain [] HENT: Denies nasal congestion or sore throat [] Respiratory: Denies cough or shortness of breath [] Cardiovascular: No additional information not addressed in HPI [] GI: Per history of present illness[] : Denies dysuria or hematuria [] Musculoskeletal: Denies back pain or joint pain [] Integument: Denies rash or skin lesions [] Neurologic: Reports headache secondary to trauma[] Endocrine: Denies polyuria or polydipsia [] All other systems were reviewed and found to be within normal limits, except as documented in this note. Current Medications Current Medications Current Medications Medications (Trade) Dose Ordered Sig/Galilea Start Time Stop Time Status Last Admin Dose Admin Ondansetron HCl (Zofran) 4 mg 1X ONCE 12/21/18 18:45 12/21/18 18:46 DC 12/21/18 18:45 4 MG Sodium Chloride 1,000 ml @ 1,000 mls/hr 1X ONCE 12/21/18 18:45 12/21/18 19:44 DC 12/21/18 18:45 1,000 MLS/HR Allergies Allergies Allergies Coded Allergies Type Severity Reaction Last Updated Verified Sulfa (Sulfonamide Antibiotics) Allergy Severe rash, tongue swelling 04/15/15 Yes Iodinated Contrast- Oral and IV Dye Allergy Intermediate rash 04/15/15 Yes Penicillins Allergy Intermediate Hives 04/15/15 Yes aspirin Allergy Intermediate Hives 04/15/15 Yes codeine Allergy Intermediate Hives; SEE COMMENT 06/08/15 Yes diphenhydramine HCl Allergy Intermediate rash 12/19/13 Yes latex Allergy Intermediate Rash 12/18/13 Yes Physical Exam Physical Exam Constitutional: Well developed, well nourished, appears acutely ill but nontoxic. [] HENT: Normocephalic, atraumatic, bilateral external ears normal, oropharynx moist, no oral exudates, nose normal. [] Eyes: PERRLA, EOMI, conjunctiva normal, no discharge. [] Neck: Normal range of motion, no tenderness, supple, no stridor. [] Cardiovascular:Heart rate regular rhythm, no murmur [] Lungs & Thorax: Bilateral breath sounds clear to auscultation [] Abdomen: Diffusely tender to palp no rebound no guarding. [] Skin: Warm, dry, no erythema, no rash. [] Back: No tenderness, no CVA tenderness. [] Extremities: No tenderness, no cyanosis, no clubbing, ROM intact, no edema. [] Neurologic: Alert and oriented X 3, normal motor function, normal sensory function, no focal deficits noted. [] Psychologic: Very depressed affect, tearful[] Current Patient Data Vital Signs Vital Signs Date Time Temp Pulse Resp B/P (MAP) Pulse Ox O2 Delivery O2 Flow Rate FiO2 12/21/18 19:30 97.9 82 16 135/82 (99) 94 Room Air 97.9 Lab Values Laboratory Tests Test 12/21/18 20:07 White Blood Count 8.5 x10^3/uL (4.0-11.0) Red Blood Count 5.42 x10^6/uL (3.50-5.40) H Hemoglobin 15.2 g/dL (12.0-15.5) Hematocrit 45.3 % (36.0-47.0) Mean Corpuscular Volume 84 fL (79-100) Mean Corpuscular Hemoglobin 28 pg (25-35) Mean Corpuscular Hemoglobin Concent 34 g/dL (31-37) Red Cell Distribution Width 14.2 % (11.5-14.5) Platelet Count 183 x10^3/uL (140-400) Neutrophils (%) (Auto) 67 % (31-73) Lymphocytes (%) (Auto) 24 % (24-48) Monocytes (%) (Auto) 9 % (0-9) Eosinophils (%) (Auto) 1 % (0-3) Basophils (%) (Auto) 0 % (0-3) Neutrophils # (Auto) 5.6 x10^3uL (1.8-7.7) Lymphocytes # (Auto) 2.0 x10^3/uL (1.0-4.8) Monocytes # (Auto) 0.7 x10^3/uL (0.0-1.1) Eosinophils # (Auto) 0.1 x10^3/uL (0.0-0.7) Basophils # (Auto) 0.0 x10^3/uL (0.0-0.2) Urine Collection Type Unknown Urine Color [place] Urine Clarity Cloudy Urine pH 7.0 Urine Specific [place] 1.020 Urine Protein Negative mg/dL (NEG-TRACE) Urine Glucose (UA) Negative mg/dL (NEG) Urine Ketones (Stick) Trace mg/dL (NEG) Urine Blood Negative (NEG) Urine Nitrite Negative (NEG) Urine Bilirubin Small (NEG) Urine Urobilinogen Dipstick 4.0 mg/dL (0.2 mg/dL) Urine Leukocyte Esterase Trace (NEG) Urine RBC 1-2 /HPF (0-2) Urine WBC 1-4 /HPF (0-4) Urine Squamous Epithelial Cells Mod /LPF Urine Bacteria Few /HPF (0-FEW) Urine Hyaline Casts Few /HPF Urine Mucus Marked /LPF Sodium Level 141 mmol/L (136-145) Potassium Level 3.4 mmol/L (3.5-5.1) L Chloride Level 101 mmol/L (98-107) Carbon Dioxide Level 33 mmol/L (21-32) H Anion Gap 7 (6-14) Blood Urea Nitrogen 12 mg/dL (7-20) Creatinine 0.8 mg/dL (0.6-1.0) Estimated GFR (Cockcroft-Gault) 73.7 BUN/Creatinine Ratio 15 (6-20) Glucose Level 103 mg/dL (70-99) H Calcium Level 9.3 mg/dL (8.5-10.1) Total Bilirubin 0.8 mg/dL (0.2-1.0) Aspartate Amino Transferase (AST) 21 U/L (15-37) Alanine Aminotransferase (ALT) 21 U/L (14-59) Alkaline Phosphatase 76 U/L (46-116) Troponin I Quantitative < 0.017 ng/mL (0.000-0.055) Total Protein 7.3 g/dL (6.4-8.2) Albumin 4.0 g/dL (3.4-5.0) Albumin/Globulin Ratio 1.2 (1.0-1.7) Lipase 67 U/L (73-393) L Urine Opiates Screen Neg (NEG) Urine Methadone Screen Neg (NEG) Urine Barbiturates Neg (NEG) Urine Phencyclidine Screen Neg (NEG) Urine Amphetamine/Methamphetamine Neg (NEG) Urine Benzodiazepines Screen Neg (NEG) Urine Cocaine Screen Neg (NEG) Urine Cannabinoids Screen Neg (NEG) Ethyl Alcohol Level < 3 mg/dL (0-10) Urine Ethyl Alcohol Neg (NEG) Laboratory Tests 12/21/18 20:07 Laboratory Tests 12/21/18 20:07 EKG EKG EKG: Normal sinus rhythm rate of 60 with some flipped T waves anterior septal[] Radiology/Procedures Radiology/Procedures [] Impressions: REASON: fall with head injury PROCEDURE: CT HEAD WO CONTRAST INDICATION: fall, hit head, prior sent COMPARISON: November 10, 2018 TECHNIQUE: Axial CT images obtained through the head without intravenous contrast. One or more of the following individualized dose reduction techniques were utilized for this examination: 1. Automated exposure control; 2. Adjustment of the mA and/or kV according to patient size; 3. Use of iterative reconstruction technique. FINDINGS: No intracranial hemorrhage. No midline shift. Basal cisterns patents. Ventricles and sulci are globally prominent. No acute osseous abnormality. Orbits and paranasal sinuses unremarkable. Scattered foci of low attenuation within the white matter. IMPRESSION: 1. No acute intracranial hemorrhage. 2. Scattered regions of low attenuation within the white matter. Non-specific in nature but frequently secondary to chronic small vessel ischemic disease. 3. Prominence of ventricles and sulci which is frequently secondary to age related volume loss. Course & Med Decision Making Course & Med Decision Making Pertinent Labs and Imaging studies reviewed. (See chart for details) [] Dragon Disclaimer Dragon Disclaimer This electronic medical record was generated, in whole or in part, using a voice recognition dictation system. Departure Departure Impression: Primary Impression: Syncope and collapse Additional Impression: Intractable nausea and vomiting Disposition: ADMITTED INPATIENT Admitting Physician: Other (Deana) Condition: STABLE Referrals: RUBIO CASTELLANOS (PCP) Problem Qualifiers Additional Impression: Intractable nausea and vomiting Vomiting type: unspecified Qualified Codes: R11.2 - Nausea with vomiting, unspecified EMILY BUENO DO Dec 21, 2018 20:22
[2018-12-21 20:31] LABS: BARBITURATES NEG (NEG); BENZODIAZEPINES NEG (NEG); CANNABINOIDS NEG (NEG); COCAINE NEG (NEG); METHADONE NEG (NEG); OPIATES NEG (NEG); PHENCYCLIDINE NEG (NEG)
[2018-12-21 20:32] LABS: AMPHETAMINE/METHAMPHETAMINE NEG (NEG); CALCIUM 9.3 mg/dL (8.5-10.1); CREATININE 0.8 mg/dL (0.6-1.0); GFR 73.7; HYALINE CASTS, URINE FEW /HPF; POTASSIUM 3.4 mmol/L (3.5-5.1); SQUAMOUS EPITHELIAL CELL,UR MOD /LPF
[2018-12-21 20:33] LABS: BACTERIA,URINE FEW /HPF (0-FEW)
[2018-12-21 20:34] LABS: ALBUMIN/GLOBULIN RATIO 1.2 (1.0-1.7); TOTAL BILIRUBIN 0.8 mg/dL (0.2-1.0); TOTAL PROTEIN 7.3 g/dL (6.4-8.2)
[2018-12-21] MEDS: IV NORMAL SALINE 1000ML BAG 1,000 ML IV SCH ×2 (20:51→22:31)
[2018-12-21] MEDS ORDERED: HYDROcodone/APAP 5/325MG 1 TAB TABLET PO PRN (21:00)
[2018-12-21] MEDS ORDERED: diphenhydrAMINE 50 MG/ML VIAL IVP PRN (21:00)
[2018-12-21] MEDS ORDERED: ALBUTEROL SULFATE 2.5 MG/3 ML NEBU. NEB PRN ×2 (21:00)
[2018-12-21] MEDS ORDERED: guaiFENesin ORAL 200 MG/10 ML LIQUID. PO PRN (21:00)
[2018-12-21] MEDS ORDERED: cloNIDine HCL 0.1 MG TABLET PO PRN (21:00)
[2018-12-21] MEDS ORDERED: DOCUSATE SODIUM 100 MG CAPSULE. PO PRN (21:00)
[2018-12-21] MEDS ORDERED: ONDANSETRON PF 4 MG/2 ML VIAL. IV PRN ×2 (21:00)
[2018-12-21] MEDS ORDERED: ACETAMINOPHEN 325 MG TABLET. PO PRN ×2 (21:00)
[2018-12-21] MEDS: FLUTICASONE 50MCG/NASAL SPRAY 16GM BOTTLE. NS SCH (21:00)
[2018-12-21] MEDS ORDERED: LORazepam 0.5 MG TABLET PO PRN (21:00)
[2018-12-21] MEDS ORDERED: SODIUM PHOSPHATES 19/7GM 133 ML ENEMA. PR PRN (21:00)
[2018-12-21] MEDS ORDERED: HYOSCYAMINE 0.125 MG TAB.RAPDIS PO PRN (21:30)
[2018-12-21] MEDS ORDERED: ONDANSETRON ODT 4 MG TAB.RAPDIS. PO PRN (21:45)
[2018-12-21] MEDS: IPRATRPIUM/ALBUTEROL 0.5/2.5MG 3 ML NEBU. NEB SCH (22:00)
[2018-12-21] MEDS: LURASIDONE 40 MG TABLET. PO SCH (22:29)
[2018-12-21] MEDS: METOPROLOL TART IMMED RELEASE 25 MG TABLET. PO SCH (22:29)
[2018-12-21] MEDS: POTASSIUM CHLORIDE 20 MEQ TABLET.ER. PO SCH (22:29)
[2018-12-21] MEDS: ATORVASTATIN CALCIUM 10 MG TABLET. PO SCH (22:30)
[2018-12-21] MEDS: PREGABALIN 50 MG CAPSULE PO SCH (22:30)
[2018-12-21 23:56] VITALS: BP 147/70
[2018-12-22 00:09] LABS: PROTHROMBIN TIME PATIENT 23.8 SEC (11.7-14.0)
[2018-12-22] MEDS ORDERED: HYDROcodone/APAP 5/325MG 1 TAB TABLET PO ONE (00:30)
[2018-12-22 03:00] VITALS: BP 142/62
[2018-12-22] MEDS: IV NORMAL SALINE 1000ML BAG 1,000 ML IV SCH ×4 (04:51→17:16)
[2018-12-22] MEDS: IPRATRPIUM/ALBUTEROL 0.5/2.5MG 3 ML NEBU. NEB SCH ×4 (06:17→19:42)
[2018-12-22] MEDS: LEVOTHYROXINE 25 MCG TABLET. PO SCH (06:20)
--- NOTE | 2018-12-22 07:09 | EKG ---
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
[2018-12-22 07:20] VITALS: BP 132/67
[2018-12-22] MEDS ORDERED: IPRATRPIUM/ALBUTEROL 0.5/2.5MG 3 ML NEBU. NEB SCH (08:00)
[2018-12-22] MEDS: BENZTROPINE MESYLATE 1 MG TABLET. PO SCH ×2 (08:18→20:22)
[2018-12-22] MEDS: PANTOPRAZOLE 40 MG TABLET.DR. PO SCH (08:19)
[2018-12-22] MEDS: PREGABALIN 50 MG CAPSULE PO SCH ×2 (08:19→20:27)
[2018-12-22] MEDS: TOPIRAMATE 25 MG TABLET. PO SCH ×2 (08:21→20:26)
[2018-12-22] MEDS: POTASSIUM CHLORIDE 20 MEQ TABLET.ER. PO SCH ×2 (08:21→20:23)
[2018-12-22] MEDS: LISINOPRIL 20 MG TABLET PO SCH (08:21)
[2018-12-22] MEDS: FUROSEMIDE 40 MG TABLET. PO SCH (08:21)
[2018-12-22] MEDS: ISOSORBIDE MONONITRATE ER 30 MG TAB.ER.24H PO SCH (08:26)
[2018-12-22] MEDS: HYDROcodone/APAP 5/325MG 1 TAB TABLET PO PRN ×3 (08:34→20:23)
[2018-12-22] MEDS: FLUTICASONE 50MCG/NASAL SPRAY 16GM BOTTLE. NS SCH ×2 (09:00→20:32)
--- NOTE | 2018-12-22 09:23 | PDOC2 ---
CARDIAC CONSULT DATE OF CONSULT Date of Consult DATE: 12/22/18 TIME: 09:14 REASON FOR CONSULT Reason for Consult: Syncope REFERRING PHYSICIAN Referring Physician: Dr. Davis SOURCE Source: Chart review, Patient HISTORY OF PRESENT ILLNESS HISTORY OF PRESENT ILLNESS This is a 58 yo female, well known to our service, who presented secondary to persistent nausea/vomiting/diarrhea and syncopal episode. Patient reports she has had persistent nausea and vomiting since last Wednesday. Hasn't been able to keep much of anything down, along initial labs not consistent with significant dehydration. Has been very weak, especially in the knees. Had a couple episodes where she was up walking and knee gave out and she "blacked out." One of these episodes she fell and het her head on the washer. Reports she feels so weak that she is unable to get up and around. PAST MEDICAL HISTORY Past Medical History Cardiovascular: CAD, HTN, Hyperlipidemia, Syncope Pulmonary: Asthma, COPD Neuro: seizures, cognitive delay GI: GERD, GI bleed, colitis, gastroparesis Heme/Onc: No pertinent hx Psych: Anxiety, Bipolar, Depression, Schizophrenia, Other (narcolepsy) Musculoskeletal: Osteoarthritis, lower back injury Infectious disease: No pertinent hx ENT: No pertinent hx Renal/: No pertinent hx Endocrine: No pertinent hx Dermatology: No pertinent hx PAST SURGICAL HISTORY Past Surgical History Cholecystectomy, Hysterectomy, Other (mechanical aortic valve), PPM, Multiple PCIs with stents FAMILY HISTORY Family History: Diabetes SOCIAL HISTORY Social History Smoke: No ALCOHOL: none Drugs: None Lives: with family CURRENT MEDICATIONS CURRENT MEDICATIONS Current Medications Medications (Trade) Dose Ordered Sig/Galilea Route PRN Reason Start Time Stop Time Status Last Admin Dose Admin Sodium Chloride 1,000 ml @ 1,000 mls/hr 1X ONCE IV 12/21/18 18:45 12/21/18 19:44 DC 12/21/18 18:45 Ondansetron HCl (Zofran) 4 mg 1X ONCE IV 12/21/18 18:45 12/21/18 18:46 DC 12/21/18 18:45 Sodium Chloride 1,000 ml @ 100 mls/hr Q10H IV 12/21/18 21:00 12/22/18 08:16 Albuterol/ Ipratropium (Duoneb) 3 ml Q4HRS W/A NEB 12/21/18 22:00 12/22/18 06:17 Atorvastatin Calcium (Lipitor) 10 mg QHS PO 12/21/18 21:00 12/21/18 22:30 Furosemide (Lasix) 40 mg DAILY PO 12/22/18 09:00 12/22/18 08:21 Acetaminophen/ Hydrocodone Bitart (Lortab 5/325) 1 tab PRN Q6HRS PRN PO MODERATE PAIN 12/21/18 21:00 12/22/18 00:06 DC 12/21/18 22:30 Isosorbide Mononitrate (Imdur) 30 mg DAILY PO 12/22/18 09:00 12/22/18 08:26 Lisinopril (Prinivil) 20 mg DAILY PO 12/22/18 09:00 12/22/18 08:21 Lurasidone HCl (Latuda) 20 mg QHS PO 12/21/18 21:00 12/21/18 22:29 Metoprolol Tartrate (Lopressor) 25 mg BID PO 12/21/18 21:00 12/21/18 22:29 Potassium Chloride (Klor-Con) 20 meq BID PO 12/21/18 21:00 12/22/18 08:21 Pregabalin (Lyrica) 50 mg BID PO 12/21/18 21:00 12/22/18 08:19 Benztropine Mesylate (Cogentin) 1 mg BID PO 12/22/18 09:00 12/22/18 08:18 Levothyroxine Sodium (Synthroid) 25 mcg DAILY06 PO 12/22/18 06:00 12/22/18 06:20 Pantoprazole Sodium (Protonix) 40 mg DAILYAC PO 12/22/18 07:30 12/22/18 08:19 Topiramate (Topamax) 25 mg DAILY PO 12/22/18 09:00 12/22/18 08:21 Acetaminophen/ Hydrocodone Bitart (Lortab 5/325) 1 tab PRN Q4HRS PRN PO MODERATE PAIN 12/22/18 00:15 12/22/18 08:34 Acetaminophen/ Hydrocodone Bitart (Lortab 5/325) 1 tab 1X ONCE PO 12/22/18 00:30 12/22/18 00:31 DC 12/22/18 00:20 Warfarin Sodium (Coumadin Per Physician) 1 each PRN DAILY PRN MC SEE COMMENTS 12/22/18 02:45 12/22/18 03:41 ALLERGIES ALLERGIES: Coded Allergies: Sulfa (Sulfonamide Antibiotics) (Verified Allergy, Severe, rash, tongue swelling, 04/15/15) Iodinated Contrast- Oral and IV Dye (Verified Allergy, Intermediate, rash , 04/15/15) Penicillins (Verified Allergy, Intermediate, Hives, 04/15/15) aspirin (Verified Allergy, Intermediate, Hives, 04/15/15) codeine (Verified Allergy, Intermediate, Hives; SEE COMMENT, 06/08/15) PT REPORTS TAKING LORTAB WITHOUT COMPLICATIONS, PER ED MD diphenhydramine HCl (Verified Allergy, Intermediate, rash, 12/19/13) latex (Verified Allergy, Intermediate, Rash, 12/18/13) ROS Review of System 14 point ROS conducted with pertinent positives noted above in HPI. PHYSICAL EXAM PHYSICAL EXAM General: Alert, Oriented X3, Cooperative, No acute distress HEENT: Atraumatic, Mucous membr. moist/pink Lungs: Clear to auscultation, Normal air movement Heart: Regular rate (SR with intermittent PVCs. ), Normal S1, Normal S2, Other (ejection click with 3/6 systolic murmur to DEXTER border) Abdomen: Soft, No tenderness Extremities: No cyanosis, No edema Skin: No breakdown, No significant lesion Neuro: Normal speech, Sensation intact Psych/Mental Status: Mental status NL, Mood NL MUSCULOSKELETAL: Osteoarthritic changes both hands VITALS VITALS Vital Signs Date Time Temp Pulse Resp B/P (MAP) Pulse Ox O2 Delivery O2 Flow Rate FiO2 12/22/18 08:34 18 97 Nasal Cannula 2.0 12/22/18 08:26 59 132/67 12/22/18 07:20 97.6 97.6 LABS Lab: Laboratory Tests Test 12/21/18 20:07 12/21/18 23:50 12/22/18 02:55 White Blood Count 8.5 x10^3/uL (4.0-11.0) Red Blood Count 5.42 x10^6/uL (3.50-5.40) Hemoglobin 15.2 g/dL (12.0-15.5) Hematocrit 45.3 % (36.0-47.0) Mean Corpuscular Volume 84 fL (79-100) Mean Corpuscular Hemoglobin 28 pg (25-35) Mean Corpuscular Hemoglobin Concent 34 g/dL (31-37) Red Cell Distribution Width 14.2 % (11.5-14.5) Platelet Count 183 x10^3/uL (140-400) Neutrophils (%) (Auto) 67 % (31-73) Lymphocytes (%) (Auto) 24 % (24-48) Monocytes (%) (Auto) 9 % (0-9) Eosinophils (%) (Auto) 1 % (0-3) Basophils (%) (Auto) 0 % (0-3) Neutrophils # (Auto) 5.6 x10^3uL (1.8-7.7) Lymphocytes # (Auto) 2.0 x10^3/uL (1.0-4.8) Monocytes # (Auto) 0.7 x10^3/uL (0.0-1.1) Eosinophils # (Auto) 0.1 x10^3/uL (0.0-0.7) Basophils # (Auto) 0.0 x10^3/uL (0.0-0.2) Urine Collection Type Unknown Urine Color Elen Urine Clarity Cloudy Urine pH 7.0 Urine Specific [place] 1.020 Urine Protein Negative mg/dL (NEG-TRACE) Urine Glucose (UA) Negative mg/dL (NEG) Urine Ketones (Stick) Trace mg/dL (NEG) Urine Blood Negative (NEG) Urine Nitrite Negative (NEG) Urine Bilirubin Small (NEG) Urine Urobilinogen Dipstick 4.0 mg/dL (0.2 mg/dL) Urine Leukocyte Esterase Trace (NEG) Urine RBC 1-2 /HPF (0-2) Urine WBC 1-4 /HPF (0-4) Urine Squamous Epithelial Cells Mod /LPF Urine Bacteria Few /HPF (0-FEW) Urine Hyaline Casts Few /HPF Urine Mucus Marked /LPF Sodium Level 141 mmol/L (136-145) Potassium Level 3.4 mmol/L (3.5-5.1) Chloride Level 101 mmol/L (98-107) Carbon Dioxide Level 33 mmol/L (21-32) Anion Gap 7 (6-14) Blood Urea Nitrogen 12 mg/dL (7-20) Creatinine 0.8 mg/dL (0.6-1.0) Estimated GFR (Cockcroft-Gault) 73.7 BUN/Creatinine Ratio 15 (6-20) Glucose Level 103 mg/dL (70-99) Calcium Level 9.3 mg/dL (8.5-10.1) Total Bilirubin 0.8 mg/dL (0.2-1.0) Aspartate Amino Transf (AST/SGOT) 21 U/L (15-37) Alanine Aminotransferase (ALT/SGPT) 21 U/L (14-59) Alkaline Phosphatase 76 U/L (46-116) Troponin I Quantitative < 0.017 ng/mL (0.000-0.055) < 0.017 ng/mL (0.000-0.055) < 0.017 ng/mL (0.000-0.055) Total Protein 7.3 g/dL (6.4-8.2) Albumin 4.0 g/dL (3.4-5.0) Albumin/Globulin Ratio 1.2 (1.0-1.7) Lipase 67 U/L (73-393) Urine Opiates Screen Neg (NEG) Urine Methadone Screen Neg (NEG) Urine Barbiturates Neg (NEG) Urine Phencyclidine Screen Neg (NEG) Urine Amphetamine/Methamphetamine Neg (NEG) Urine Benzodiazepines Screen Neg (NEG) Urine Cocaine Screen Neg (NEG) Urine Cannabinoids Screen Neg (NEG) Ethyl Alcohol Level < 3 mg/dL (0-10) Urine Ethyl Alcohol Neg (NEG) Prothrombin Time 23.8 SEC (11.7-14.0) Prothromb Time International Ratio 2.2 (0.8-1.1) ECHOCARDIOGRAM ECHOCARDIOGRAM <Conclusion> Technically difficult study. The left ventricle is normal size. The left ventricular systolic function is normal and the ejection fraction is within normal range. The Ejection Fraction is estimated at 50%. There is borderline concentric left ventricular hypertrophy. There is a mechanical aortic valve prosthesis. The prosthetic aortic valve appears normal. Calculated aortic valve area is 1.4 cm2 with maximum pressure gradient of 38 mmHg and mean pressure gradient of 22 mmHg. Doppler and Color-flow revealed trace to mild mitral regurgitation. Doppler and Color Flow revealed trace to mild tricuspid regurgitation. DATE: 09/01/18 1801 STRESS TEST STRESS TEST Conclusion 1. No EKG evidence of stressed induced ischemia. 2. Nuclear imaging shows no reversible ischemia or infarct. 3. Normal left ventricular systolic function with an ejection fraction of greater than 70%. DATE: 10/26/17 1245 HEART CATH HEART CATH FINDINGS 1. The left main coronary artery arose from the left sinus of Valsalva, gave rise to the left anterior descending and left circumflex arteries and did not show any significant stenosis. 2. The left anterior descending artery showed 30% stenosis in the midsegment. 3. The left circumflex artery did not show any significant stenosis. 4. The right coronary artery was a large and dominant vessel arising from the right sinus of Valsalva that did not show any significant stenosis. The previously placed stent is patent. Conclusion No significant coronary artery disease. Recommendations Medical management DATE: 07/16/15 0919 ASSESSMENT/PLAN ASSESSMENT/PLAN 1. Syncope; recent echo with LVEF 50% as noted above. No acute events on telemetry. Doubt cardiac etiology. 2. Nausea/vomiting/diarrhea, weakness. GI consulted. 3. CAD: Multiple past stents, clinically stable 4. PPM in situ: hx of SSS. ([employer]) 5. AVR: mechanical valve. Recent 2-D echo showed normal function. 6. Chronic Coumadin therapy: INR 2.2 7. HTN: controlled 8. HLP: statin 9. Schizophrenia/bipolar disorder 10. Hypokalemia; replaced Recommendations Check orthostatic readings. Device interrogation Continue with secondary prevention measures Supportive care from a CV standpoint. SOTERO DUMONT APRN Dec 22, 2018 09:23
--- NOTE | 2018-12-22 09:58 | PDOC ---
Provider Note Provider Note Pt seen.H&P dictated. #[id number]. NICOLE SMITH MD Dec 22, 2018 09:58
[2018-12-22] MEDS ORDERED: POTASSIUM CHLORIDE 20 MEQ TABLET.ER. PO ONE (10:00)
[2018-12-22] MEDS: DIVALPROEX DELAYED RELEASE 250 MG TABLET.DR. PO SCH (10:05)
[2018-12-22] MEDS: METOPROLOL TART IMMED RELEASE 25 MG TABLET. PO SCH ×2 (10:06→20:26)
[2018-12-22 11:00] VITALS: BP_SYST 113; BP_SYST 118; BP_SYST 124; BP_DIAS 62; BP_DIAS 69; BP_DIAS 73
--- NOTE | 2018-12-22 11:16 | HP ---
ADMIT DATE: 12/21/2018 LOCATION: [facility] REASON FOR ADMISSION TO THE HOSPITAL: Chest pain. The patient has a known history of coronary artery disease, cardiac stents as well as an aortic valve replacement. HISTORY OF PRESENT ILLNESS: The patient is a 58-year-old female, patient of Dr. West. She has a history of coronary artery disease, previous cardiac stents and she also has an artificial aortic valve mechanical valve, she is on Coumadin and she also has history of pacemaker for sick sinus syndrome . This is a third ER admission for chest pain in last 1 week and the patient was finally admitted to the hospital for further evaluation. PAST MEDICAL HISTORY: As mentioned, has a CAD, prosthetic aortic valve, cardiac stents, pacemaker, hypertension, hyperlipidemia, hypothyroidism, GERD, gastritis, diverticulosis, seizures, bipolar, schizophrenia. PAST SURGICAL HISTORY: Gallbladder surgery, hysterectomy, mechanical aortic valve, pacemaker, multiple cardiac stents. FAMILY HISTORY: Diabetes, heart disease. SOCIAL HISTORY: Denies smoking, alcohol or drug abuse. ALLERGIES: CONTRAST, PENICILLIN, SULFA, ASPIRIN, CODEINE, BENADRYL, LATEX. MEDICATIONS AT HOME: Albuterol 4 times daily; atorvastatin 10 mg daily; benztropine 1 mg twice a day; Depakote 1250 mg total, she takes 500 mg in the evening, 750 mg in the morning; Flonase daily; Lasix 40 mg daily; hydrocodone 5/325 q. 6; Levsin 1 q. 6; DuoNeb 4 times daily; isosorbide 30 mg daily; levothyroxine 25 mcg daily; lisinopril 20 mg daily; Latuda 40 mg tablet, takes 20 mg daily; metoprolol 25 mg twice a day; Singulair 10 mg daily; Zyprexa 15 mg at bedtime; omeprazole 40 mg daily; Zofran for nausea; potassium 20 mEq twice a day; Lyrica 50 mg twice a day; Topamax 25 mg daily; Coumadin 5 mg daily. REVIEW OF SYMPTOMS: GENERAL: Complains of pain, mostly anterior part of the chest and also abdominal pain and cramping. GASTROINTESTINAL: No diarrhea, no vomiting. CONSTITUTION: No fever. Rest of the 14-system was reviewed. PHYSICAL EXAMINATION: GENERAL: The patient is not in any distress, on the phone when I was seeing her. VITAL SIGNS: Temperature 97, pulse 82, respirations 16, blood pressure 134/82, 94 on room air. HEENT: Head is atraumatic. The patient has enlarged pupil, left eye. Oral cavity, dentures. NECK: Supple. Thyroid not enlarged. JVD not elevated. CHEST: Symmetrical, scar of heart surgery, had a prosthetic aortic valve. LUNGS: Clear to auscultation. No wheezing. ABDOMEN: Soft, slight tender in the left lower quadrant. No rebound. Bowel sounds are present. EXTERNAL GENITALIA: No Siu. RECTAL: Deferred. EXTREMITIES: No calf tenderness, no edema. Pulses 1+. NEUROLOGIC: Cranial nerves intact. Power 5/5, moving all extremities. No focal deficits noted. LABORATORY DATA: Shows a white count of 8, hemoglobin 15, platelets 183. INR 2.2. Electrolytes show sodium 141, potassium 3.4, chloride 101, bicarbonate 33, anion gap 7, BUN 12, creatinine 0.8, glucose 103. LFTs were normal. Troponin 3 sets were negative. Lipase was normal. Urine was negative. Toxicology screen was negative. CT head was negative for stroke. EKG done, negative for ischemia. FINAL IMPRESSION: 1. Chest pain for cardiac evaluation. 2. Known history of coronary artery disease, previous cardiac stents. 3. Artificial aortic valve, on Coumadin. INR therapeutic. 4. Pacemaker, sick sinus syndrome. 5. Abdominal pain, history of diverticulosis. 6. Hypothyroidism. 7. History of bipolar, schizophrenia. 8. History of seizures, on Depakote, Lyrica, and Topamax. PLAN: At this time, admit to hospital. Hydrate with IV fluids. Cardiology is consulted. Also, have GI see the patient. We will check Depakote levels. INR is therapeutic. NICOLE SMITH MD DR: ISAMAR/cori JOB#: [id number] / [id number] RUBIO Birch
--- NOTE | 2018-12-22 11:19 | PDOC2 ---
GI CONSULT Reason For Consult: Abd pain HPI: HPI: 58 y/o female w/ PMH as below who is admitted frequently and we have seen many times. Came to the ER three times in 5 days and was admitted again. She reports n/v, "all over pain," and diarrhea (10 times a day) since Wednesday w/ weakness "blacking out." Denies precipitating events. No bleeding. Can't remember the last meal she ate. Ate applesauce (with pills) and 1/3 of a piece of toast this morning. Labs and imaging fairly unremarkable. H/o GERD previously on omeprazole QD but she can't remember if she still takes this - knows she takes Pepto though. H/o gastroparesis (GES w/ 22% retention at 4 hours in 2018) - says she takes Reglan either BID or TID (we increased to QID in the past), not sure if takes before eating. Numerous EGDs and colonoscopies in the past - both normal in 04/2018 except diverticulosis. H/o ischemic colitis. S/p cholecystectomy. On Warfarin. On Protonix, hyoscyamine, and Zofran here. Has been on Colestid in the past. Per RN, no vomiting. Has had 4 small loose brown stools this morning. PMH: PMH: CAD w/ stents, HTN, HLD, asthma, COPD, GERD, gastroparesis, ?ischemic colitis, diverticulosis, anxiety, depression, bipolar, schizophrenia, narcolepsy, OA, cholecystectomy, hysterectomy, mechanical aortic valve, pacemaker FH: Family History: Other Social History: ALCOHOL: none Drugs: None ROS: GEN: Denies fevers, chills, sweats HEENT: Denies blurred vision, sore throat CV: Denies chest pain RESP: Denies shortness of air, cough GI: Per HPI : Denies hematuria, dysuria ENDO: Denies weight changes NEURO: Denies confusion, dizziness MSK: +weakness SKIN: Denies jaundice, pruritus Vitals: Vitals: Vital Signs Date Time Temp Pulse Resp B/P (MAP) Pulse Ox O2 Delivery O2 Flow Rate FiO2 12/22/18 10:06 62 106/73 12/22/18 08:34 18 97 Nasal Cannula 2.0 12/22/18 07:20 97.6 97.6 Labs: Labs: Laboratory Tests Test 12/21/18 20:07 12/21/18 23:50 12/22/18 02:55 White Blood Count 8.5 x10^3/uL (4.0-11.0) Red Blood Count 5.42 x10^6/uL (3.50-5.40) Hemoglobin 15.2 g/dL (12.0-15.5) Hematocrit 45.3 % (36.0-47.0) Mean Corpuscular Volume 84 fL (79-100) Mean Corpuscular Hemoglobin 28 pg (25-35) Mean Corpuscular Hemoglobin Concent 34 g/dL (31-37) Red Cell Distribution Width 14.2 % (11.5-14.5) Platelet Count 183 x10^3/uL (140-400) Neutrophils (%) (Auto) 67 % (31-73) Lymphocytes (%) (Auto) 24 % (24-48) Monocytes (%) (Auto) 9 % (0-9) Eosinophils (%) (Auto) 1 % (0-3) Basophils (%) (Auto) 0 % (0-3) Neutrophils # (Auto) 5.6 x10^3uL (1.8-7.7) Lymphocytes # (Auto) 2.0 x10^3/uL (1.0-4.8) Monocytes # (Auto) 0.7 x10^3/uL (0.0-1.1) Eosinophils # (Auto) 0.1 x10^3/uL (0.0-0.7) Basophils # (Auto) 0.0 x10^3/uL (0.0-0.2) Urine Collection Type Unknown Urine Color Elen Urine Clarity Cloudy Urine pH 7.0 Urine Specific [place] 1.020 Urine Protein Negative mg/dL (NEG-TRACE) Urine Glucose (UA) Negative mg/dL (NEG) Urine Ketones (Stick) Trace mg/dL (NEG) Urine Blood Negative (NEG) Urine Nitrite Negative (NEG) Urine Bilirubin Small (NEG) Urine Urobilinogen Dipstick 4.0 mg/dL (0.2 mg/dL) Urine Leukocyte Esterase Trace (NEG) Urine RBC 1-2 /HPF (0-2) Urine WBC 1-4 /HPF (0-4) Urine Squamous Epithelial Cells Mod /LPF Urine Bacteria Few /HPF (0-FEW) Urine Hyaline Casts Few /HPF Urine Mucus Marked /LPF Sodium Level 141 mmol/L (136-145) Potassium Level 3.4 mmol/L (3.5-5.1) Chloride Level 101 mmol/L (98-107) Carbon Dioxide Level 33 mmol/L (21-32) Anion Gap 7 (6-14) Blood Urea Nitrogen 12 mg/dL (7-20) Creatinine 0.8 mg/dL (0.6-1.0) Estimated GFR (Cockcroft-Gault) 73.7 BUN/Creatinine Ratio 15 (6-20) Glucose Level 103 mg/dL (70-99) Calcium Level 9.3 mg/dL (8.5-10.1) Total Bilirubin 0.8 mg/dL (0.2-1.0) Aspartate Amino Transf (AST/SGOT) 21 U/L (15-37) Alanine Aminotransferase (ALT/SGPT) 21 U/L (14-59) Alkaline Phosphatase 76 U/L (46-116) Troponin I Quantitative < 0.017 ng/mL (0.000-0.055) < 0.017 ng/mL (0.000-0.055) < 0.017 ng/mL (0.000-0.055) Total Protein 7.3 g/dL (6.4-8.2) Albumin 4.0 g/dL (3.4-5.0) Albumin/Globulin Ratio 1.2 (1.0-1.7) Lipase 67 U/L (73-393) Urine Opiates Screen Neg (NEG) Urine Methadone Screen Neg (NEG) Urine Barbiturates Neg (NEG) Urine Phencyclidine Screen Neg (NEG) Urine Amphetamine/Methamphetamine Neg (NEG) Urine Benzodiazepines Screen Neg (NEG) Urine Cocaine Screen Neg (NEG) Urine Cannabinoids Screen Neg (NEG) Ethyl Alcohol Level < 3 mg/dL (0-10) Urine Ethyl Alcohol Neg (NEG) Prothrombin Time 23.8 SEC (11.7-14.0) Prothromb Time International Ratio 2.2 (0.8-1.1) Magnesium Level 1.8 mg/dL (1.8-2.4) Allergies: Coded Allergies: Sulfa (Sulfonamide Antibiotics) (Verified Allergy, Severe, rash, tongue swelling, 04/15/15) Iodinated Contrast- Oral and IV Dye (Verified Allergy, Intermediate, rash , 04/15/15) Penicillins (Verified Allergy, Intermediate, Hives, 04/15/15) aspirin (Verified Allergy, Intermediate, Hives, 04/15/15) codeine (Verified Allergy, Intermediate, Hives; SEE COMMENT, 06/08/15) PT REPORTS TAKING LORTAB WITHOUT COMPLICATIONS, PER ED diphenhydramine HCl (Verified Allergy, Intermediate, rash, 12/19/13) latex (Verified Allergy, Intermediate, Rash, 12/18/13) Medications: Current Medications Medications (Trade) Dose Ordered Sig/Galilea Route PRN Reason Start Time Stop Time Status Last Admin Dose Admin Sodium Chloride 1,000 ml @ 1,000 mls/hr 1X ONCE IV 12/21/18 18:45 12/21/18 19:44 DC 12/21/18 18:45 Ondansetron HCl (Zofran) 4 mg 1X ONCE IV 12/21/18 18:45 12/21/18 18:46 DC 12/21/18 18:45 Sodium Chloride 1,000 ml @ 100 mls/hr Q10H IV 12/21/18 21:00 12/22/18 08:16 Albuterol/ Ipratropium (Duoneb) 3 ml Q4HRS W/A NEB 12/21/18 22:00 12/22/18 06:17 Atorvastatin Calcium (Lipitor) 10 mg QHS PO 12/21/18 21:00 12/21/18 22:30 Furosemide (Lasix) 40 mg DAILY PO 12/22/18 09:00 12/22/18 08:21 Acetaminophen/ Hydrocodone Bitart (Lortab 5/325) 1 tab PRN Q6HRS PRN PO MODERATE PAIN 12/21/18 21:00 12/22/18 00:06 DC 12/21/18 22:30 Isosorbide Mononitrate (Imdur) 30 mg DAILY PO 12/22/18 09:00 12/22/18 08:26 Lisinopril (Prinivil) 20 mg DAILY PO 12/22/18 09:00 12/22/18 08:21 Lurasidone HCl (Latuda) 20 mg QHS PO 12/21/18 21:00 12/21/18 22:29 Metoprolol Tartrate (Lopressor) 25 mg BID PO 12/21/18 21:00 12/22/18 10:06 Potassium Chloride (Klor-Con) 20 meq BID PO 12/21/18 21:00 12/22/18 08:21 Pregabalin (Lyrica) 50 mg BID PO 12/21/18 21:00 12/22/18 08:19 Benztropine Mesylate (Cogentin) 1 mg BID PO 12/22/18 09:00 12/22/18 08:18 Divalproex Sodium (Depakote) 750 mg DAILY PO 12/22/18 09:00 12/22/18 10:05 Hyoscyamine (Anaspaz) 0.125 mg PRN Q4HRS PRN PO STOMACH CRAMPING 12/21/18 21:30 12/22/18 10:04 Levothyroxine Sodium (Synthroid) 25 mcg DAILY06 PO 12/22/18 06:00 12/22/18 06:20 Pantoprazole Sodium (Protonix) 40 mg DAILYAC PO 12/22/18 07:30 12/22/18 08:19 Topiramate (Topamax) 25 mg DAILY PO 12/22/18 09:00 12/22/18 08:21 Acetaminophen/ Hydrocodone Bitart (Lortab 5/325) 1 tab PRN Q4HRS PRN PO MODERATE PAIN 12/22/18 00:15 12/22/18 08:34 Acetaminophen/ Hydrocodone Bitart (Lortab 5/325) 1 tab 1X ONCE PO 12/22/18 00:30 12/22/18 00:31 DC 12/22/18 00:20 Warfarin Sodium (Coumadin Per Physician) 1 each PRN DAILY PRN MC SEE COMMENTS 12/22/18 02:45 12/22/18 03:41 Potassium Chloride (Klor-Con) 20 meq 1X ONCE PO 12/22/18 10:00 12/22/18 10:01 DC 12/22/18 10:09 Imaging: Imaging: Head CT 12/21 IMPRESSION: 1. No acute intracranial hemorrhage. 2. Scattered regions of low attenuation within the white matter. Non-specific in nature but frequently secondary to chronic small vessel ischemic disease. 3. Prominence of ventricles and sulci which is frequently secondary to age related volume loss. CT A/P 12/20 Impression: No acute inflammatory process or obstruction. No radiopaque collecting system calculi. Epigastric level ventral midline abdominal wall hernia. Infraumbilical abdominal wall hernia. Minimal diverticulosis. PE: GEN: NAD HEENT: Atraumatic, PERRLA LUNGS: CTAB anteriorly HEART: RRR ABD: NABS, soft, round, pain left periumbilical to LLQ as always EXTREMITY: No edema SKIN: No rashes, no jaundice NEURO/PSYCH: A & O 3, flat A/P: A/P: N/v, abd pain, diarrhea, ?syncope - chronic/recurrent, CT unrevealing for acute issue GERD and gastroparesis CRC screen - UTD Diverticulosis H/o ischemic colitis Sp cholecystectomy CAD and AVR - on Coumadin Schizophrenia/bipolar -- ?compliance at home Agree w/ PPI. Can restart Reglan - could try suspension since taking some PO today. Note plans to check C Diff. ?ANANT Mcarthur Dec 22, 2018 11:19
[2018-12-22] MEDS: METOCLOPRAMIDE ORAL SOLN 10 MG/10 ML SOLUTION. PO SCH ×3 (13:32→20:27)
[2018-12-22] MEDS: WARFARIN 5 MG TABLET. PO SCH (17:16)
[2018-12-22 19:00] VITALS: BP_SYST 11; BP_SYST 111; BP_DIAS 60
[2018-12-22] MEDS: ATORVASTATIN CALCIUM 10 MG TABLET. PO SCH (20:22)
[2018-12-22] MEDS: LURASIDONE 40 MG TABLET. PO SCH (20:23)
[2018-12-22] MEDS: OLANZapine 5 MG TABLET PO SCH (20:24)
[2018-12-22] MEDS: DIVALPROEX DELAYED RELEASE 500 MG TABLET.DR. PO SCH (20:24)
[2018-12-22] MEDS: MONTELUKAST SODIUM 10 MG TABLET. PO SCH (20:27)
[2018-12-22 22:47] VITALS: BP 108/52
[2018-12-23 02:56] VITALS: BP 116/58
[2018-12-23] MEDS: IV NORMAL SALINE 1000ML BAG 1,000 ML IV SCH (04:06)
[2018-12-23] MEDS: IPRATRPIUM/ALBUTEROL 0.5/2.5MG 3 ML NEBU. NEB SCH ×5 (06:00→21:16)
[2018-12-23] MEDS: LEVOTHYROXINE 25 MCG TABLET. PO SCH (06:23)
[2018-12-23 07:01] LABS: ANION GAP 6 (6-14); BLOOD UREA NITROGEN 10 mg/dL (7-20); CALCIUM 8.2 mg/dL (8.5-10.1); CARBON DIOXIDE 26 mmol/L (21-32); CHLORIDE 108 mmol/L (98-107); CHOLESTEROL 105 mg/dL (0-200); CREATININE 0.7 mg/dL (0.6-1.0); GFR 85.9; GLUCOSE 99 mg/dL (70-99); HDLC 31 mg/dL (40-60); LDLC 44 mg/dL (0-100); POTASSIUM 3.6 mmol/L (3.5-5.1); SODIUM 140 mmol/L (136-145); TRIGLYCERIDES 152 mg/dL (0-150); VLDLC 30 mg/dL (0-40)
[2018-12-23 07:11] LABS: CHOLESTEROL/HDL RATIO 3.4; VAL ACID 46 mcg/mL (50-100)
[2018-12-23 07:20] VITALS: BP 132/71
--- NOTE | 2018-12-23 09:16 | PDOC ---
Subjective: Subjective: Asks if she's going to have a test to check her stomach. No vomiting. Eating some. No diarrhea. Still has pain all over. Objective: Objective: No diarrhea or vomiting per RN. Vital Signs: Vital Signs Date Time Temp Pulse Resp B/P (MAP) Pulse Ox O2 Delivery O2 Flow Rate FiO2 12/23/18 07:20 98.2 59 18 132/71 (91) 97 Nasal Cannula 2.0 98.2 Labs: Laboratory Tests Test 12/22/18 10:38 12/23/18 06:30 Clostridium difficile Toxin B Gene Negative Sodium Level 140 mmol/L Potassium Level 3.6 mmol/L Chloride Level 108 mmol/L Carbon Dioxide Level 26 mmol/L Anion Gap 6 Blood Urea Nitrogen 10 mg/dL Creatinine 0.7 mg/dL Estimated GFR (Cockcroft-Gault) 85.9 Glucose Level 99 mg/dL Calcium Level 8.2 mg/dL Triglycerides Level 152 mg/dL Cholesterol Level 105 mg/dL LDL Cholesterol, Calculated 44 mg/dL VLDL Cholesterol, Calculated 30 mg/dL Non-HDL Cholesterol Calculated 74 mg/dL HDL Cholesterol 31 mg/dL Cholesterol/HDL Ratio 3.4 Thyroid Stimulating Hormone (TSH) 1.246 uIU/mL Valproic Acid (Depakene) Level 46 mcg/mL Valproic Acid Last Dose Date 12/22/18 Valproic Acid Last Dose Time 1999 PE: GEN: NAD - talking on the phone LUNGS: NC has jelly on it HEART: RRR ABD: BS+, round, left-sided discomfort (as in the past) NEURO/PSYCH: A & O 3, flat A/P: Chronic/recurrent n/v, abd pain, diarrhea - better -h/o GERD and gastroparesis, ?non-compliance -lost of 'scopes in the past, most recently 04/2018 -- Continue PPI and Reglan. ANANT OLIVAREZ Dec 23, 2018 09:16
[2018-12-23] MEDS: TOPIRAMATE 25 MG TABLET. PO SCH ×2 (09:17→21:18)
[2018-12-23] MEDS: POTASSIUM CHLORIDE 20 MEQ TABLET.ER. PO SCH ×2 (09:18→21:19)
[2018-12-23] MEDS: DIVALPROEX DELAYED RELEASE 250 MG TABLET.DR. PO SCH (09:18)
[2018-12-23] MEDS: PANTOPRAZOLE 40 MG TABLET.DR. PO SCH (09:19)
[2018-12-23] MEDS: ISOSORBIDE MONONITRATE ER 30 MG TAB.ER.24H PO SCH (09:19)
[2018-12-23] MEDS: LISINOPRIL 20 MG TABLET PO SCH (09:20)
[2018-12-23] MEDS: BENZTROPINE MESYLATE 1 MG TABLET. PO SCH ×2 (09:20→21:20)
[2018-12-23] MEDS: PREGABALIN 50 MG CAPSULE PO SCH ×3 (09:20→21:20)
[2018-12-23] MEDS: FUROSEMIDE 40 MG TABLET. PO SCH (09:21)
[2018-12-23] MEDS: HYDROcodone/APAP 5/325MG 1 TAB TABLET PO PRN ×3 (09:23→21:19)
[2018-12-23] MEDS: FLUTICASONE 50MCG/NASAL SPRAY 16GM BOTTLE. NS SCH ×2 (09:24→21:21)
[2018-12-23] MEDS: METOCLOPRAMIDE ORAL SOLN 10 MG/10 ML SOLUTION. PO SCH ×4 (09:30→21:19)
--- NOTE | 2018-12-23 09:46 | PDOC ---
PROGRESS NOTES Subjective Subjective does not feel well, abd pain Objective Objective Vital Signs Date Time Temp Pulse Resp B/P (MAP) Pulse Ox O2 Delivery O2 Flow Rate FiO2 12/23/18 09:23 20 97 Nasal Cannula 2.0 12/23/18 09:20 59 132/71 12/23/18 07:20 98.2 98.2 Intake and Output 12/23/18 07:00 Intake Total 400 ml Output Total 700 ml Balance -300 ml Intake Oral 400 ml Output Urine Total 700 ml # Voids 2 # Bowel Movements 2 Physical Exam Abdomen: Normal bowel sounds, Soft (non tender) Heart: Regular rate, Normal S1 Extremities: No clubbing General: Alert, Cooperative HEENT: Atraumatic Lungs: Clear to auscultation MUSCULOSKELETAL: No deformity, Osteoarthritic changes both hands Neck: Supple Neuro: Normal speech Psych/Mental Status: Mental status NL Skin: No breakdown Diagnosis Problem List Problems Medical Problems: (1) Intractable nausea and vomiting Status: Acute (2) Syncope and collapse Status: Acute Assessment Assessment Problems Medical Problems: (1) Intractable nausea and vomiting Status: Acute (2) Syncope and collapse Status: Acute FINAL IMPRESSION: 1. Chest pain for cardiac evaluation. 2. Known history of coronary artery disease, previous cardiac stents. 3. Artificial aortic valve, on Coumadin. INR therapeutic. 4. Pacemaker, sick sinus syndrome. 5. Abdominal pain, history of diverticulosis. 6. Hypothyroidism. 7. History of bipolar, schizophrenia. 8. History of seizures, on Depakote, Lyrica, and Topamax. PLAN: c diff neg lab sandra stess test recent neg echo good lvf cath in 2014-patent stent. appreciate Gi and cardiology consults. home tomorrow? Plan Plan of Care Problems Medical Problems: (1) Intractable nausea and vomiting Status: Acute (2) Syncope and collapse Status: Acute Comment Review of Relevant I have reviewed the following items yonathan (where applicable) has been applied. Labs Laboratory Tests Test 12/22/18 10:38 12/23/18 06:30 Clostridium difficile Toxin B Gene Negative (Negative) Sodium Level 140 mmol/L (136-145) Potassium Level 3.6 mmol/L (3.5-5.1) Chloride Level 108 mmol/L (98-107) Carbon Dioxide Level 26 mmol/L (21-32) Anion Gap 6 (6-14) Blood Urea Nitrogen 10 mg/dL (7-20) Creatinine 0.7 mg/dL (0.6-1.0) Estimated GFR (Cockcroft-Gault) 85.9 Glucose Level 99 mg/dL (70-99) Calcium Level 8.2 mg/dL (8.5-10.1) Triglycerides Level 152 mg/dL (0-150) Cholesterol Level 105 mg/dL (0-200) LDL Cholesterol, Calculated 44 mg/dL (0-100) VLDL Cholesterol, Calculated 30 mg/dL (0-40) Non-HDL Cholesterol Calculated 74 mg/dL (0-129) HDL Cholesterol 31 mg/dL (40-60) Cholesterol/HDL Ratio 3.4 Thyroid Stimulating Hormone (TSH) 1.246 uIU/mL (0.358-3.74) Valproic Acid (Depakene) Level 46 mcg/mL (50-100) Valproic Acid Last Dose Date 12/22/18 Valproic Acid Last Dose Time 1999 Medications Current Medications Divalproex Sodium (Depakote) 500 mg QHS PO Last administered on 12/22/18 20:24 ; Start 12/22/18 at 21:00 Metoclopramide HCl (Reglan Oral Solution) 5 mg QIDACHS PO Last administered on 12/23/18 09:30; Start 12/22/18 at 11:30 Montelukast Sodium (Singulair) 10 mg QHS PO Last administered on 12/22/18 20: 27; Start 12/22/18 at 21:00 Olanzapine (ZyPREXA) 15 mg QHS PO Last administered on 12/22/18 20:24; Start 12/22/18 at 21:00 Potassium Chloride (Klor-Con) 20 meq 1X ONCE PO Last administered on 10:09; Start 12/22/18 at 10:00; Stop 12/22/18 at 10:01; Status DC Topiramate (Topamax) 50 mg QHS PO Last administered on 12/22/18 20:26; Start 12/22/18 at 21:00 Warfarin Sodium (Coumadin) 5 mg DAILY16 PO Last administered on 12/22/18 17:16 ; Start 12/22/18 at 16:00 Vitals/I & O Vital Sign - Last 24 Hours 12/22/18 12/22/18 12/22/1811/19 10:06 11:00 11:00 11:00 Temp 97.4 97.4 Pulse 62 60 62 61 Resp 18 B/P (MAP) 106/73 113/62 (79) 124/73 (90) 118/69 (85) Pulse Ox 96 O2 Delivery Nasal Cannula O2 Flow Rate 2.0 12/22/18 12/22/18 12/22/18 12/22/18 11:14 13:37 14:40 19:00 Temp 98.0 98.0 Pulse 60 Resp 18 B/P (MAP) 111/60 (77) Pulse Ox 97 97 97 97 O2 Delivery Nasal Cannula Nasal Cannula Nasal Cannula O2 Flow Rate 2.0 2.0 2.0 2.0 12/22/18 12/22/18 12/22/18 12/22/18 19:42 20:00 20:23 20:26 B/P (MAP) 111/60 O2 Delivery Nasal Cannula Nasal Cannula Nasal Cannula O2 Flow Rate 2.0 2.0 12/22/18 12/22/18 12/23/18 12/23/18 21:23 22:47 02:56 07:20 Temp 98.3 98.0 98.2 98.3 98.0 98.2 Pulse 58 60 59 Resp 18 B/P (MAP) 108/52 (70) 116/58 (77) 132/71 (91) Pulse Ox 94 94 97 O2 Delivery Room Air Nasal Cannula Nasal Cannula Nasal Cannula O2 Flow Rate 2.0 2.0 2.0 12/23/18 12/23/18 12/23/18 09:19 09:20 09:23 Pulse 59 59 Resp 20 B/P (MAP) 132/71 132/71 Pulse Ox 97 O2 Delivery Nasal Cannula O2 Flow Rate 2.0 Intake and Output 12/22/18 12/22/18 12/23/18 15:00 23:00 07:00 Intake Total 200 ml 200 ml 0 ml Output Total 700 ml Balance -500 ml 200 ml 0 ml NICOLE SMITH MD Dec 23, 2018 09:46
[2018-12-23 11:05] VITALS: BP 111/48
[2018-12-23] MEDS: METOPROLOL TART IMMED RELEASE 25 MG TABLET. PO SCH ×2 (13:06→21:20)
[2018-12-23 15:00] VITALS: BP 102/49
[2018-12-23] MEDS: WARFARIN 5 MG TABLET. PO SCH (16:36)
[2018-12-23 19:00] VITALS: BP 111/53
[2018-12-23] MEDS: MONTELUKAST SODIUM 10 MG TABLET. PO SCH (21:18)
[2018-12-23] MEDS: LURASIDONE 40 MG TABLET. PO SCH (21:20)
[2018-12-23] MEDS: ATORVASTATIN CALCIUM 10 MG TABLET. PO SCH (21:20)
[2018-12-23] MEDS: OLANZapine 5 MG TABLET PO SCH (21:20)
[2018-12-23] MEDS: DIVALPROEX DELAYED RELEASE 500 MG TABLET.DR. PO SCH (21:20)
[2018-12-23 22:19] VITALS: BP 123/62
[2018-12-24 03:00] VITALS: BP 125/66
[2018-12-24 04:39] LABS: PROTHROMBIN TIME PATIENT 29.5 SEC (11.7-14.0)
[2018-12-24] MEDS: IPRATRPIUM/ALBUTEROL 0.5/2.5MG 3 ML NEBU. NEB SCH ×2 (06:00→10:00)
[2018-12-24] MEDS: LEVOTHYROXINE 25 MCG TABLET. PO SCH (07:10)
[2018-12-24 07:35] VITALS: BP 141/70
[2018-12-24] MEDS: METOCLOPRAMIDE ORAL SOLN 10 MG/10 ML SOLUTION. PO SCH ×2 (07:48→11:44)
[2018-12-24] MEDS: PANTOPRAZOLE 40 MG TABLET.DR. PO SCH (07:48)
[2018-12-24] MEDS: METOPROLOL TART IMMED RELEASE 25 MG TABLET. PO SCH (08:59)
[2018-12-24] MEDS: FLUTICASONE 50MCG/NASAL SPRAY 16GM BOTTLE. NS SCH (08:59)
[2018-12-24] MEDS: ISOSORBIDE MONONITRATE ER 30 MG TAB.ER.24H PO SCH (09:00)
[2018-12-24] MEDS: BENZTROPINE MESYLATE 1 MG TABLET. PO SCH (09:00)
[2018-12-24] MEDS: TOPIRAMATE 25 MG TABLET. PO SCH (09:01)
[2018-12-24] MEDS: HYDROcodone/APAP 5/325MG 1 TAB TABLET PO PRN (09:01)
[2018-12-24] MEDS: DIVALPROEX DELAYED RELEASE 250 MG TABLET.DR. PO SCH (09:01)
[2018-12-24] MEDS: FUROSEMIDE 40 MG TABLET. PO SCH (09:02)
[2018-12-24] MEDS: POTASSIUM CHLORIDE 20 MEQ TABLET.ER. PO SCH (09:02)
[2018-12-24] MEDS: LISINOPRIL 20 MG TABLET PO SCH (09:02)
--- NOTE | 2018-12-24 10:31 | PDOC ---
IM PROGRESS NOTES- Subjective Subjective Still has some abdominal pain. Feeling somewhat better. Objective Vitals Vital Signs Date Time Temp Pulse Resp B/P (MAP) Pulse Ox O2 Delivery O2 Flow Rate FiO2 12/24/18 09:02 84 141/70 12/24/18 09:01 14 Room Air 12/24/18 07:35 97.9 97 97.9 12/23/18 21:18 2.0 Input & Output Intake and Output 12/24/18 06:59 Intake Total 940 ml Output Total 851 ml Balance 89 ml Intake Oral 940 ml Output Urine Total 851 ml # Voids 2 Physical Exam Physical Exam General appearance - alert,well appearing, and in no distress and oriented to person, place, and time Mental Status - alert, oriented to person, place, and time, affect appropriate to mood Head - normal Chest - clear to auscultation, no wheezes, rales or rhonchi, symmetric air entry Heart - S1 and S2 normal Abdomen - soft, nontender, nondistended, obese Neurological - alert and oriented Musculoskeletal - no muscular tenderness noted Extremities - no pedal edema Skin - warm and dry Labs Laboratory Tests Test 12/22/18 10:38 12/23/18 06:30 12/24/18 03:25 Clostridium difficile Toxin B Gene Negative (Negative) Sodium Level 140 mmol/L (136-145) Potassium Level 3.6 mmol/L (3.5-5.1) Chloride Level 108 mmol/L (98-107) Carbon Dioxide Level 26 mmol/L (21-32) Anion Gap 6 (6-14) Blood Urea Nitrogen 10 mg/dL (7-20) Creatinine 0.7 mg/dL (0.6-1.0) Estimated GFR (Cockcroft-Gault) 85.9 Glucose Level 99 mg/dL (70-99) Calcium Level 8.2 mg/dL (8.5-10.1) Triglycerides Level 152 mg/dL (0-150) Cholesterol Level 105 mg/dL (0-200) LDL Cholesterol, Calculated 44 mg/dL (0-100) VLDL Cholesterol, Calculated 30 mg/dL (0-40) Non-HDL Cholesterol Calculated 74 mg/dL (0-129) HDL Cholesterol 31 mg/dL (40-60) Cholesterol/HDL Ratio 3.4 Thyroid Stimulating Hormone (TSH) 1.246 uIU/mL (0.358-3.74) Valproic Acid (Depakene) Level 46 mcg/mL (50-100) Valproic Acid Last Dose Date 12/22/18 Valproic Acid Last Dose Time 1999 Prothrombin Time 29.5 SEC (11.7-14.0) Prothromb Time International Ratio 2.8 (0.8-1.1) Laboratory Tests Test 12/24/18 03:25 Prothrombin Time 29.5 SEC (11.7-14.0) Prothromb Time International Ratio 2.8 (0.8-1.1) Assessment Assessment Problems Medical Problems: (1) Intractable nausea and vomiting Status: Acute (2) Syncope and collapse Status: Acute FINAL IMPRESSION: 1. Chest pain for cardiac evaluation. 2. Known history of coronary artery disease, previous cardiac stents. 3. Artificial aortic valve, on Coumadin. INR therapeutic. 4. Pacemaker, sick sinus syndrome. 5. Abdominal pain, history of diverticulosis. 6. Hypothyroidism. 7. History of bipolar, schizophrenia. 8. History of seizures, on Depakote, Lyrica, and Topamax. PLAN: c diff neg lab sandra stess test recent neg echo good lvf cath in 2014-patent stent. Slowly improving. Patient has unequal pupils by history and previous exams from the previous admission by Dr. Aburto. Discharge home today. Prescription for Lyrica 50 mg twice a day written. Long- term as well as short-term prognosis of this patient is poor due to her multiple medical problems as well as anxiety. Follow-up with Dr. Hudson in 5 days. Plan Plan For more details regarding further plans, please refer to the orders. HARRY DE LA VEGA MD Dec 24, 2018 10:31
[2018-12-24 11:43] VITALS: BP 102/57
--- NOTE | 2018-12-27 15:23 | PDOC ---
Provider Note Provider Note Discharge summary dictated. #[id number] NICOLE SMITH MD Dec 27, 2018 15:23
--- NOTE | 2018-12-27 16:03 | DS ---
DATE OF DISCHARGE: 12/24/2018 REASON FOR ADMISSION TO THE HOSPITAL: Near syncopal episode. CONSULTATIONS: Cardiology. PROCEDURES DONE: CT head. OTHER CONSULTATION: Dr. Baig. HOSPITAL COURSE: The patient is a 58-year-old female with multiple ER visits at least third visit in this week for not feeling well, chest pain, dizziness and abdominal pain. The patient was admitted to the hospital. EKG negative for ischemia. Cardiac enzymes negative. Seen by Cardiology. The patient had a full cardiac workup done in last 3 months including a stress test, echocardiogram and did not feel it was anything coming from the cardiac reyes causing her symptoms. CT scan was negative. Had seen GI because of epigastric pain. She had a C. diff, which was negative. The patient's condition improved and she was discharged. FINAL DIAGNOSES: 1. Near syncopal episode. No etiology found. The patient has a pacemaker, which was checked within last 6 months. The patient had a stress test in last 3 months, negative for ischemia. 2. History of prosthetic aortic valve, on Coumadin. INR is therapeutic. 3. History of bipolar and schizophrenia, stable. DISPOSITION: Home. DISCHARGE MEDICATIONS: See MRAD for discharge medications. NICOLE SMITH MD DR: ISAMAR/cori JOB#: [id number] / [id number] RUBIO Birch
== END 2018-12-24 13:53 | disposition home or self-care (01) | DRG 312 ==
LOC: ER 17:55 → 6 SOUTH 20:35
PROVIDERS: ADMIT Internal Medicine; ATTEND Internal Medicine
DX: R55 Syncope and collapse (principal); I10 Essential (primary) hypertension; K57.90 Diverticulosis of intestine, part unspecified, without perforation or abscess without bleeding; F41.9 Anxiety disorder, unspecified; F31.9 Bipolar disorder, unspecified; I48.91 Unspecified atrial fibrillation; Z86.73 Personal history of transient ischemic attack (TIA), and cerebral infarction without residual deficits; F20.9 Schizophrenia, unspecified; W18.39XA Other fall on same level, initial encounter; K21.9 Gastro-esophageal reflux disease without esophagitis; E03.9 Hypothyroidism, unspecified; E78.5 Hyperlipidemia, unspecified; I25.10 Atherosclerotic heart disease of native coronary artery without angina pectoris; J44.9 Chronic obstructive pulmonary disease, unspecified; E87.6 Hypokalemia; G47.419 Narcolepsy without cataplexy; I35.9 Nonrheumatic aortic valve disorder, unspecified; I25.2 Old myocardial infarction; Z90.49 Acquired absence of other specified parts of digestive tract; Z95.2 Presence of prosthetic heart valve; Z95.0 Presence of cardiac pacemaker; Z88.5 Allergy status to narcotic agent; Z88.0 Allergy status to penicillin; Z88.2 Allergy status to sulfonamides; Z88.8 Allergy status to other drugs, medicaments and biological substances; Z88.6 Allergy status to analgesic agent; Z91.041 Radiographic dye allergy status; Z91.040 Latex allergy status; Y93.89 Activity, other specified; Y92.89 Other specified places as the place of occurrence of the external cause; Y99.8 Other external cause status; Z95.5 Presence of coronary angioplasty implant and graft; Z90.710 Acquired absence of both cervix and uterus; Z83.3 Family history of diabetes mellitus; Z79.01 Long term (current) use of anticoagulants; Z91.19 Patient's noncompliance with other medical treatment and regimen
CPT/HCPCS: 36415; 70450; 80048; 80053; 80061; 80164; 80307; 81001; 83690; 83735; 84443; 84484; 85025; 85610; 87086; 87493; 93005; 94640; 94760; 96361; 96374; G0480; J2405; J7030; J7620; J8597; Q0162; 99285-25

== ENCOUNTER 2019-07-20 18:11 | Inpatient (IN) | payer OTHER, MEDICAID ==
[~2019-07-20] VITALS: Ht 154.9 cm; Wt 93.2 kg
[~2019-07-20 18:11] MED LIST changes: +MONT10TA49 PO; -MONT10TA6 PO; -NITR0.4T SL; +NITR0.4T24 SL; +OMEP40CA45 PO; -OMEP40CA5 PO; -PANT40TA3 PO; -PANT40TA5 PO; +PANT40TA77 PO
[2019-07-20] MEDS ORDERED: IV NORMAL SALINE 1000ML BAG 1,000 ML IV SCH (18:41)
--- NOTE | 2019-07-20 18:59 | PHYS DOC ---
Past Medical History Past Medical History: A-Fib, Anxiety, Bipolar, CVA, Hypertension, FL, Schizophrenia, Other Additional Past Medical Histor: HALLUCINATIONS, AORTIC VALVE DISORDERS, mi 1996, kidney problems (KEEGAN WELLS APRN) Past Surgical History: Cholecystectomy, Pacemaker, Other Additional Past Surgical Histo: HERNIA REPAIR, AORTIC VALVE REPLACEMENT; with defibrilator (KEEGAN WELLS APRN) Additional Information: SECOND HAND Alcohol Use: Sober Drug Use: None (KEEGAN WELLS APRN) Attending Signature I have participated in the care of this patient and I have reviewed and agree with all pertinent clinical information above including history, exam, and recommendations. (CRISTOBAL GRAHAM MD) Adult General Chief Complaint Chief Complaint: CHEST PAIN HPI HPI Patient is a 58 year old female who presents with 3 days of generalized abdominal cramping and vomiting up food that she eats. Patient states she's had a nonproductive cough also. Patient states this morning she woke with left-sided chest stabbing pain and dizziness. Patient rates her pain 8 out of 10. (KEEGAN WELLS APRN) Review of Systems Review of Systems Constitutional: Denies fever or chills [] Eyes: Denies change in visual acuity, redness, or eye pain [] HENT: Denies nasal congestion or sore throat [] Respiratory: Denies cough or shortness of breath [] Cardiovascular: No additional information not addressed in HPI [] GI: Denies abdominal pain, nausea, vomiting, bloody stools or diarrhea [] : Denies dysuria or hematuria [] Musculoskeletal: Denies back pain or joint pain [] Integument: Denies rash or skin lesions [] Neurologic: Denies headache, focal weakness or sensory changes [] Endocrine: Denies polyuria or polydipsia [] All other systems were reviewed and found to be within normal limits, except as documented in this note. (KEEGAN WELLS APRN) Current Medications Current Medications Current Medications Medications (Trade) Dose Ordered Sig/Galilea Start Time Stop Time Status Last Admin Dose Admin Fentanyl Citrate (Fentanyl 2ml Vial) 50 mcg 1X ONCE 07/20/19 19:00 07/20/19 19:01 DC 07/20/19 19:16 50 MCG Ondansetron HCl (Zofran) 4 mg 1X ONCE 07/20/19 19:00 07/20/19 19:01 DC 07/20/19 19:13 4 MG Sodium Chloride 1,000 ml @ 1,000 mls/hr Q1H 07/20/19 18:41 07/20/19 19:40 DC 07/20/19 19:17 1,000 MLS/HR (CRISTOBAL GRAHAM MD) Allergies Allergies Allergies Coded Allergies Type Severity Reaction Last Updated Verified Sulfa (Sulfonamide Antibiotics) Allergy Severe rash, tongue swelling 04/15/15 Yes Iodinated Contrast Media Allergy Intermediate rash 04/15/15 Yes Penicillins Allergy Intermediate Hives 04/15/15 Yes aspirin Allergy Intermediate Hives 04/15/15 Yes codeine Allergy Intermediate Hives; SEE COMMENT 06/08/15 Yes diphenhydramine HCl Allergy Intermediate rash 12/19/13 Yes latex Allergy Intermediate Rash 12/18/13 Yes (CRISTOBAL GRAHAM MD) Physical Exam Physical Exam Constitutional: Well developed, well nourished, no acute distress, non-toxic appearance. [] HENT: Normocephalic, atraumatic, bilateral external ears normal, oropharynx moist, no oral exudates, nose normal. [] Eyes: PERRLA, EOMI, conjunctiva normal, no discharge. [] Neck: Normal range of motion, no tenderness, supple, no stridor. [] Cardiovascular:Heart rate regular rhythm, no murmur [] Lungs & Thorax: Bilateral breath sounds clear to auscultation [] Abdomen: Bowel sounds normal, soft, no tenderness, no masses, no pulsatile masses. [] Skin: Warm, dry, no erythema, no rash. [] Back: No tenderness, no CVA tenderness. [] Extremities: No tenderness, no cyanosis, no clubbing, ROM intact, no edema. [] Neurologic: Alert and oriented X 3, normal motor function, normal sensory function, no focal deficits noted. [] Psychologic: Affect normal, judgement normal, mood normal. [] (KEEGAN WELLS APRN) Current Patient Data Vital Signs Vital Signs Date Time Temp Pulse Resp B/P (MAP) Pulse Ox O2 Delivery O2 Flow Rate FiO2 07/20/19 19:16 20 96 Room Air 07/20/19 18:19 97.5 75 142/76 (98) 97.5 (CRISTOBAL GRAHAM MD) Lab Values Laboratory Tests Test 07/20/19 19:00 White Blood Count 6.2 x10^3/uL (4.0-11.0) Red Blood Count 4.84 x10^6/uL (3.50-5.40) Hemoglobin 14.0 g/dL (12.0-15.5) Hematocrit 41.1 % (36.0-47.0) Mean Corpuscular Volume 85 fL (79-100) Mean Corpuscular Hemoglobin 29 pg (25-35) Mean Corpuscular Hemoglobin Concent 34 g/dL (31-37) Red Cell Distribution Width 14.8 % (11.5-14.5) H Platelet Count 159 x10^3/uL (140-400) Neutrophils (%) (Auto) 66 % (31-73) Lymphocytes (%) (Auto) 27 % (24-48) Monocytes (%) (Auto) 6 % (0-9) Eosinophils (%) (Auto) 2 % (0-3) Basophils (%) (Auto) 0 % (0-3) Neutrophils # (Auto) 4.1 x10^3/uL (1.8-7.7) Lymphocytes # (Auto) 1.6 x10^3/uL (1.0-4.8) Monocytes # (Auto) 0.4 x10^3/uL (0.0-1.1) Eosinophils # (Auto) 0.1 x10^3/uL (0.0-0.7) Basophils # (Auto) 0.0 x10^3/uL (0.0-0.2) Prothrombin Time 29.3 SEC (11.7-14.0) H Prothrombin Time INR 2.8 (0.8-1.1) H Sodium Level 147 mmol/L (136-145) H Potassium Level 3.6 mmol/L (3.5-5.1) Chloride Level 108 mmol/L (98-107) H Carbon Dioxide Level 32 mmol/L (21-32) Anion Gap 7 (6-14) Blood Urea Nitrogen 21 mg/dL (7-20) H Creatinine 0.8 mg/dL (0.6-1.0) Estimated GFR (Cockcroft-Gault) 73.7 BUN/Creatinine Ratio 26 (6-20) H Glucose Level 93 mg/dL (70-99) Calcium Level 8.6 mg/dL (8.5-10.1) Total Bilirubin 0.3 mg/dL (0.2-1.0) Aspartate Amino Transferase (AST) 12 U/L (15-37) L Alanine Aminotransferase (ALT) 17 U/L (14-59) Alkaline Phosphatase 63 U/L (46-116) Troponin I Quantitative < 0.017 ng/mL (0.000-0.055) KS-Cpq-F-Type Natriuretic Peptide 178 pg/mL (0-124) H Total Protein 6.8 g/dL (6.4-8.2) Albumin 3.4 g/dL (3.4-5.0) Albumin/Globulin Ratio 1.0 (1.0-1.7) Lipase 113 U/L (73-393) Laboratory Tests 07/20/19 19:00 Laboratory Tests 07/20/19 19:00 (CRISTOBAL GRAHAM MD) Lab Values Laboratory Tests Test 07/20/19 19:00 07/20/19 20:00 White Blood Count 6.2 x10^3/uL (4.0-11.0) Red Blood Count 4.84 x10^6/uL (3.50-5.40) Hemoglobin 14.0 g/dL (12.0-15.5) Hematocrit 41.1 % (36.0-47.0) Mean Corpuscular Volume 85 fL (79-100) Mean Corpuscular Hemoglobin 29 pg (25-35) Mean Corpuscular Hemoglobin Concent 34 g/dL (31-37) Red Cell Distribution Width 14.8 % (11.5-14.5) H Platelet Count 159 x10^3/uL (140-400) Neutrophils (%) (Auto) 66 % (31-73) Lymphocytes (%) (Auto) 27 % (24-48) Monocytes (%) (Auto) 6 % (0-9) Eosinophils (%) (Auto) 2 % (0-3) Basophils (%) (Auto) 0 % (0-3) Neutrophils # (Auto) 4.1 x10^3/uL (1.8-7.7) Lymphocytes # (Auto) 1.6 x10^3/uL (1.0-4.8) Monocytes # (Auto) 0.4 x10^3/uL (0.0-1.1) Eosinophils # (Auto) 0.1 x10^3/uL (0.0-0.7) Basophils # (Auto) 0.0 x10^3/uL (0.0-0.2) Prothrombin Time 29.3 SEC (11.7-14.0) H Prothrombin Time INR 2.8 (0.8-1.1) H Sodium Level 147 mmol/L (136-145) H Potassium Level 3.6 mmol/L (3.5-5.1) Chloride Level 108 mmol/L (98-107) H Carbon Dioxide Level 32 mmol/L (21-32) Anion Gap 7 (6-14) Blood Urea Nitrogen 21 mg/dL (7-20) H Creatinine 0.8 mg/dL (0.6-1.0) Estimated GFR (Cockcroft-Gault) 73.7 BUN/Creatinine Ratio 26 (6-20) H Glucose Level 93 mg/dL (70-99) Calcium Level 8.6 mg/dL (8.5-10.1) Total Bilirubin 0.3 mg/dL (0.2-1.0) Aspartate Amino Transferase (AST) 12 U/L (15-37) L Alanine Aminotransferase (ALT) 17 U/L (14-59) Alkaline Phosphatase 63 U/L (46-116) Troponin I Quantitative < 0.017 ng/mL (0.000-0.055) OE-Yuu-[id number]-Type Natriuretic Peptide 178 pg/mL (0-124) H Total Protein 6.8 g/dL (6.4-8.2) Albumin 3.4 g/dL (3.4-5.0) Albumin/Globulin Ratio 1.0 (1.0-1.7) Lipase 113 U/L (73-393) Urine Collection Type Unknown Urine Color Yellow Urine Clarity Clear Urine pH 7.0 Urine Specific Isabella 1.020 Urine Protein Negative mg/dL (NEG-TRACE) Urine Glucose (UA) Negative mg/dL (NEG) Urine Ketones (Stick) Negative mg/dL (NEG) Urine Blood Negative (NEG) Urine Nitrite Negative (NEG) Urine Bilirubin Negative (NEG) Urine Urobilinogen Dipstick 1.0 mg/dL (0.2 mg/dL) Urine Leukocyte Esterase Trace (NEG) Urine RBC 0 /HPF (0-2) Urine WBC 1-4 /HPF (0-4) Urine Squamous Epithelial Cells Mod /LPF Urine Bacteria Many /HPF (0-FEW) Laboratory Tests 07/20/19 19:00 Laboratory Tests 07/20/19 19:00 (KEEGAN WELLS APRN) EKG EKG SINUS AND NO STEMI[] Interpretation Time: [address] GRAHAM (KEEGAN WELLS APRN) Radiology/Procedures Radiology/Procedures [] (KEEGAN WELLS APRN) Impressions: [facility] [address] [place] [id number] IMAGING REPORT Signed PATIENT: RHETT HERNANDEZ ACCOUNT: [id number] : 1960 LOCATION: ER AGE: 58 SEX: F EXAM STATUS: REG ER ORD. PHYSICIAN: KEEGAN WELLS APRN REASON: dizziness PROCEDURE: CT HEAD WO CONTRAST CT head without contrast dated 07/20/2019. Comparison made to 12/21/2018. CLINICAL INDICATION: Dizziness. TECHNIQUE: Contiguous axial imaging the head was performed from skull base to vertex. No contrast administered. One or more of the following individualized dose reduction techniques were utilized for this examination: 1. Automated exposure control 2. Adjustment of the mA and/or kV according to patient size 3. Use of iterative reconstruction technique. FINDINGS: Ventricles and sulci are mildly prominent for age. No midline shift or mass effect. Brain parenchyma is of normal attenuation. No hemorrhage or extra-axial collection. Posterior fossa and brainstem unremarkable. Visualized paranasal sinuses and mastoid air cells are clear. No apparent calvarial abnormality. Small mucous retention cyst left maxillary sinus. IMPRESSION: 1. No evidence of acute intracranial abnormality. 2. Mild atrophy for age. Electronically signed by: Efrem Odonnell MD (07/20/2019 7:15 PM) [facility] DICTATED and SIGNED BY: EFREM ODONNELL MD DATE: 07/20/191914 [facility] [address] [place] [id number] IMAGING REPORT Signed PATIENT: RHETT HERNANDEZ ACCOUNT: [id number] : 1960 LOCATION: ER AGE: 58 SEX: F EXAM STATUS: REG ER ORD. PHYSICIAN: KEEGAN WELLS APRN REASON: vomiting, abd pain PROCEDURE: CT ABDOMEN PELVIS WO CONTRAST CT abdomen pelvis without contrast dated 07/20/2019. Comparison made to 12/20/2018. Clinical data indication: Vomiting and abdominal pain. TECHNIQUE: Contiguous axial imaging the abdomen and pelvis performed without the administration of IV or oral contrast. One or more of the following individualized dose reduction techniques were utilized for this examination: 1. Automated exposure control 2. Adjustment of the mA and/or kV according to patient size 3. Use of iterative reconstruction technique. FINDINGS: Limited images of lung bases are clear. Heart size mildly enlarged. No pleural or pericardial effusion. Patient is status post median sternotomy. There is a prominent subxiphoid ventral hernia containing only fat. Solid abdominal viscera not well evaluated in the absence of contrast material. No apparent attenuation abnormality of the liver or spleen. Gallbladder is surgically absent. There is fatty replacement of the pancreas. Adrenal glands and kidneys are unremarkable. No stone or hydronephrosis. Unopacified GI tract normal in caliber and contour. No focal bowel wall thickening. No inflammatory stranding in the mesentery. The appendix is normal in caliber. No ascites or lymphadenopathy. Images of pelvis show nondistended urinary bladder. The uterus is surgically absent. No free pelvic fluid or pelvic lymphadenopathy. There is a prominent infraumbilical ventral hernia containing only fat. Bone windows show no acute findings. Mild multilevel spondylosis. Remote wedge compression deformities of T9 and T10 and L4. IMPRESSION: 1. No acute abnormality of abdomen or pelvis. 2. Subxiphoid and infraumbilical ventral hernias containing only fat, unchanged. 3. Status post cholecystectomy and hysterectomy. Electronically signed by: Efrem Odnonell MD (07/20/2019 7:33 PM) [facility] DICTATED and SIGNED BY: EFREM ODONNELL MD DATE: 07/20/19 193 (KEEGAN WELLS APRN) Course & Med Decision Making Course & Med Decision Making Alert and oriented. Patient has had a stroke in the past with left-sided deficits of which she uses a cane. Skin pink warm and dry. Lungs are clear in upper lobes diminished in lower lobes. Abdomen has generalized tenderness in all quadrants. Speaks in full clear sentences. PERRLA. Patient moves all extremities and moves around in the bed by herself. Patient during her pain 8 out of 10. No swelling in lower extremities. Patient is allergic to aspirin so is not given. Patient has history of an FL, defibrillator in place, A. fib, copd, hypertension, schizophrenia, bipolar, anxiety, CVA. She answers all questions appropriately. Patient follows all commands appropriately. Denies any blood in her vomit or diarrhea. Patient continues to have abdominal pain after first dose of pain medications. Chest Xray read by Dr Graham states no obvious acute findings. Patient admitted to Dr Hudson. (KEEGAN WELLS APRN) Dragon Disclaimer Dragon Disclaimer This electronic medical record was generated, in whole or in part, using a voice recognition dictation system. (KEEGAN WELLS APRN) The HEART Score for CP Pts HEART Score for Chest Pain: HEART Score for Chest Pain Response (Comments) Value History Slighlty/Non-Suspicious 0 ECG Normal 0 Age >45 - < 65 1 Risk Factors >3 Risk Factors or Hx CAD 2 Troponin < Normal Limit 0 Total 3 Risk Factors: Risk Factors: DM, Current or recent (<one month) smoker, HTN, HLP, family history of CAD, obesity. Risk Scores: Score 0 - 3: 2.5% MACE over next 6 weeks - Discharge Home Score 4 - 6: 20.3% MACE over next 6 weeks - Admit for Clinical Observation Score 7 - 10: 72.7% MACE over next 6 weeks - Early Invasive Strategies (KEEGAN WELLS APRN) Departure Departure Impression: Primary Impression: Chest pain Additional Impression: Vomiting Disposition: 09 ADMITTED INPATIENT Admitting Physician: Elizabeth Hudson (KEEGAN WELLS APRN) Condition: STABLE Referrals: RUBIO CASTELLANOS (PCP) Problem Qualifiers Primary Impression: Chest pain Chest pain type: unspecified Qualified Codes: R07.9 - Chest pain, unspecified Additional Impression: Vomiting Vomiting type: unspecified Vomiting Intractability: non-intractable Nausea presence: with nausea Qualified Codes: R11.2 - Nausea with vomiting, unspecified KEEGAN WELLS APRN Jul 20, 2019 18:59 CRISTOBAL GRAHAM MD Jul 20, 2019 23:01
[2019-07-20] MEDS ORDERED: ONDANSETRON PF 4 MG/2 ML VIAL. IV ONE (19:00)
[2019-07-20] MEDS ORDERED: fentaNYL PF VIAL 100 MCG/2 ML VIAL IVP ONE ×2 (19:00→20:30)
--- NOTE | 2019-07-20 19:17 | RAD ---
CT head without contrast dated 07/20/2019. Comparison made to 12/21/2018. CLINICAL INDICATION: Dizziness. TECHNIQUE: Contiguous axial imaging the head was performed from skull base to vertex. No contrast administered. One or more of the following individualized dose reduction techniques were utilized for this examination: 1. Automated exposure control 2. Adjustment of the mA and/or kV according to patient size 3. Use of iterative reconstruction technique. FINDINGS: Ventricles and sulci are mildly prominent for age. No midline shift or mass effect. Brain parenchyma is of normal attenuation. No hemorrhage or extra-axial collection. Posterior fossa and brainstem unremarkable. Visualized paranasal sinuses and mastoid air cells are clear. No apparent calvarial abnormality. Small mucous retention cyst left maxillary sinus. IMPRESSION: 1. No evidence of acute intracranial abnormality. 2. Mild atrophy for age. Electronically signed by: Efrem Odonnell MD (07/20/2019 7:15 PM) [facility]
--- NOTE | 2019-07-20 19:35 | RAD ---
CT abdomen pelvis without contrast dated 07/20/2019. Comparison made to 12/20/2018. Clinical data indication: Vomiting and abdominal pain. TECHNIQUE: Contiguous axial imaging the abdomen and pelvis performed without the administration of IV or oral contrast. One or more of the following individualized dose reduction techniques were utilized for this examination: 1. Automated exposure control 2. Adjustment of the mA and/or kV according to patient size 3. Use of iterative reconstruction technique. FINDINGS: Limited images of lung bases are clear. Heart size mildly enlarged. No pleural or pericardial effusion. Patient is status post median sternotomy. There is a prominent subxiphoid ventral hernia containing only fat. Solid abdominal viscera not well evaluated in the absence of contrast material. No apparent attenuation abnormality of the liver or spleen. Gallbladder is surgically absent. There is fatty replacement of the pancreas. Adrenal glands and kidneys are unremarkable. No stone or hydronephrosis. Unopacified GI tract normal in caliber and contour. No focal bowel wall thickening. No inflammatory stranding in the mesentery. The appendix is normal in caliber. No ascites or lymphadenopathy. Images of pelvis show nondistended urinary bladder. The uterus is surgically absent. No free pelvic fluid or pelvic lymphadenopathy. There is a prominent infraumbilical ventral hernia containing only fat. Bone windows show no acute findings. Mild multilevel spondylosis. Remote wedge compression deformities of T9 and T10 and L4. IMPRESSION: 1. No acute abnormality of abdomen or pelvis. 2. Subxiphoid and infraumbilical ventral hernias containing only fat, unchanged. 3. Status post cholecystectomy and hysterectomy. Electronically signed by: Efrem Odonnell MD (07/20/2019 7:33 PM) [facility]
--- NOTE | 2019-07-20 19:51 | RAD ---
Examination: PORTABLE CHEST 1V History: Chest pain Comparison/Correlation: 12/16/2018 Portable Chest X-ray Exam Findings: Portable upright frontal view of chest was obtained. Dual-lead left-sided pacemaker is present. Sternal wires are present. Heart size is borderline enlarged. Pulmonary vasculature is borderline. No pneumothorax. No definite pleural effusion or infiltrate. Osteopenia noted. Impression: Borderline pulmonary vasculature congestion Electronically signed by: Ruben Last MD (07/20/2019 7:48 PM) [facility]
[2019-07-20 20:00] LABS: BASO % 0 % (0-3); EOS # 0.1 x10^3/uL (0.0-0.7); EOS % 2 % (0-3); HEMATOCRIT 41.1 % (36.0-47.0); LYMPH # 1.6 x10^3/uL (1.0-4.8); LYMPH % 27 % (24-48); MEAN CORPUSCULAR HEMOGLOBIN 29 pg (25-35); MEAN CORPUSCULAR HGB CONC 34 g/dL (31-37); MEAN CORPUSCULAR VOLUME 85 fL (79-100); MONO # 0.4 x10^3/uL (0.0-1.1); MONO % 6 % (0-9); NEUT # 4.1 x10^3/uL (1.8-7.7); NEUT % 66 % (31-73); PLATELET COUNT 159 x10^3/uL (140-400); RED BLOOD COUNT 4.84 x10^6/uL (3.50-5.40); RED CELL DISTRIBUTION WIDTH 14.8 % (11.5-14.5); WHITE BLOOD COUNT 6.2 x10^3/uL (4.0-11.0)
[2019-07-20 20:08] LABS: BILIRUBIN,URINE NEGATIVE (NEG); CLARITY,URINE CLEAR; COLOR,URINE YELLOW; NITRITE,URINE NEGATIVE (NEG); PROTEIN,URINE NEGATIVE (NEG-TRACE)
[2019-07-20 20:10] LABS: CALCIUM 8.6 mg/dL (8.5-10.1); CREATININE 0.8 mg/dL (0.6-1.0); GFR 73.7; POTASSIUM 3.6 mmol/L (3.5-5.1)
[2019-07-20 20:12] LABS: PROTHROMBIN TIME PATIENT 29.3 SEC (11.7-14.0)
[2019-07-20 20:12] LABS: BACTERIA,URINE MANY /HPF (0-FEW); RBC,URINE 0 /HPF (0-2); SQUAMOUS EPITHELIAL CELL,UR MOD /LPF
[2019-07-20 20:16] LABS: ALBUMIN 3.4 g/dL (3.4-5.0); TOTAL BILIRUBIN 0.3 mg/dL (0.2-1.0); TOTAL PROTEIN 6.8 g/dL (6.4-8.2)
[2019-07-20] MEDS ORDERED: FAMOTIDINE 20 MG/2 ML VIAL IVP ONE (20:30)
[2019-07-20] MEDS: IV NORMAL SALINE 1000ML BAG 1,000 ML IV SCH (20:41)
[2019-07-20] MEDS ORDERED: ONDANSETRON PF 4 MG/2 ML VIAL. IV PRN (20:45)
[2019-07-20 21:59] VITALS: BP 149/85
[2019-07-20] MEDS ORDERED: TRAZ-118 PO (22:20)
[2019-07-20] MEDS ORDERED: TEMA15CA PO (22:22)
[2019-07-20] MEDS ORDERED: TOPI25TA7 PO (22:24)
[2019-07-20] MEDS ORDERED: MIRT30TA3 PO (22:26)
[2019-07-20] MEDS ORDERED: POTA20TA82 PO (22:26)
[2019-07-20] MEDS ORDERED: DIVA500T17 PO (22:29)
[2019-07-20] MEDS ORDERED: FLUO40CA2 PO (22:34)
[2019-07-21 02:07] VITALS: BP 119/56
[2019-07-21] MEDS: fentaNYL PF VIAL 100 MCG/2 ML VIAL IV PRN ×2 (05:59→09:16)
--- NOTE | 2019-07-21 06:13 | EKG ---
[facility] [address] [place] [address] Test Date: 2019-07-20 Test Time: 18:24:23 Pat Name: RHETT HERNANDEZ Department: Room: Gender: F Metal Turner: MOMO : 1960 Requested By: KEEGAN WELLS Order Number: [id number] Reading MD: Measurements Intervals [place] Rate: 75 P: DE: QRS: 20 QRSD: 86 T: 133 QT: 428 QTc: 481 Interpretive Statements ACCELERATED JUNCTIONAL RHYTHM QRS(T) CONTOUR ABNORMALITY CONSIDER ANTEROLATERAL MYOCARDIAL DAMAGE ST & T ABNORMALITY, CONSIDER ANTERIOR ISCHEMIA OR LEFT VENTRICULAR STRAIN ABNORMAL ECG RI6.01 No previous ECG available for comparison
[2019-07-21 06:55] VITALS: BP 123/58
[2019-07-21] MEDS: IV NORMAL SALINE 1000ML BAG 1,000 ML IV SCH (07:31)
[2019-07-21] MEDS ORDERED: POTASSIUM CHLORIDE 20 MEQ TABLET.ER. PO SCH (09:00)
[2019-07-21] MEDS ORDERED: TEMAZEPAM 15 MG CAPSULE PO PRN (09:00)
[2019-07-21] MEDS ORDERED: ONDANSETRON ODT 4 MG TAB.RAPDIS. PO PRN (09:00)
[2019-07-21] MEDS ORDERED: DIVA-53 PO (09:01)
[2019-07-21] MEDS: FUROSEMIDE 40 MG TABLET. PO SCH (09:11)
[2019-07-21] MEDS: BENZTROPINE MESYLATE 1 MG TABLET. PO SCH ×2 (09:12→20:45)
[2019-07-21] MEDS: LISINOPRIL 20 MG TABLET PO SCH (09:13)
[2019-07-21] MEDS: ISOSORBIDE MONONITRATE ER 30 MG TAB.ER.24H PO SCH (09:13)
[2019-07-21] MEDS: FLUoxetine HCL 20 MG CAPSULE PO SCH (09:13)
[2019-07-21] MEDS: PREGABALIN 50 MG CAPSULE PO SCH ×2 (09:14→20:45)
[2019-07-21] MEDS: TOPIRAMATE 25 MG TABLET. PO SCH ×2 (09:14→20:46)
[2019-07-21] MEDS: DIVALPROEX DELAYED RELEASE 500 MG TABLET.DR. PO SCH ×2 (09:14→20:44)
--- NOTE | 2019-07-21 09:53 | PDOC2 ---
CARDIAC CONSULT DATE OF CONSULT Date of Consult DATE: 07/21/19 TIME: 09:48 REASON FOR CONSULT Reason for Consult: Chest pain REFERRING PHYSICIAN Referring Physician: Cliff SOURCE Source: Chart review, Patient HISTORY OF PRESENT ILLNESS HISTORY OF PRESENT ILLNESS This is a pleasant 58 yo female admitted for complains of abdominal pain. Reports that this started about 2 days ago and started off as sharp pain to left side of abdomen that then radiated to left chest. Notable with vomiting. She does have hx of gastroparesis and verbalized that she has been compliant with her medication. Denies any jaw pain or arm discomfort. she does have occasional palpitations but no significant SOA. She does not think this is her heart. No recent falls or injury. No further passing out. PAST MEDICAL HISTORY Past Medical History Cardiovascular: CAD, HTN, Hyperlipidemia, Syncope Pulmonary: Asthma, COPD Neuro: seizures, cognitive delay GI: GERD, GI bleed, colitis, gastroparesis Heme/Onc: No pertinent hx Psych: Anxiety, Bipolar, Depression, Schizophrenia, Other (narcolepsy) Musculoskeletal: Osteoarthritis, lower back injury Infectious disease: No pertinent hx ENT: No pertinent hx Renal/: No pertinent hx Endocrine: No pertinent hx Dermatology: No pertinent hx PAST SURGICAL HISTORY Past Surgical History Cholecystectomy, Hysterectomy, Other (mechanical aortic valve), PPM, Multiple PCIs with stents FAMILY HISTORY Family History: Diabetes SOCIAL HISTORY Smoke: No ALCOHOL: none Drugs: None Lives: with Family CURRENT MEDICATIONS CURRENT MEDICATIONS Current Medications Medications (Trade) Dose Ordered Sig/Galilea Route PRN Reason Start Time Stop Time Status Last Admin Dose Admin Sodium Chloride 1,000 ml @ 1,000 mls/hr Q1H IV 07/20/19 18:41 07/20/19 19:40 DC 07/20/19 19:17 Ondansetron HCl (Zofran) 4 mg 1X ONCE IV 07/20/19 19:00 07/20/19 19:01 DC 07/20/19 19:13 Fentanyl Citrate (Fentanyl 2ml Vial) 50 mcg 1X ONCE IVP 07/20/19 19:00 07/20/19 19:01 DC 07/20/19 19:16 Fentanyl Citrate (Fentanyl 2ml Vial) 50 mcg 1X ONCE IVP 07/20/19 20:30 07/20/19 20:34 DC 07/20/19 21:22 Famotidine (Pepcid Vial) 20 mg 1X ONCE IVP 07/20/19 20:30 07/20/19 20:34 DC 07/20/19 21:21 Ondansetron HCl (Zofran) 4 mg PRN Q8HRS PRN IV NAUSEA/VOMITING 07/20/19 20:45 07/21/19 20:44 07/21/19 05:59 Fentanyl Citrate (Fentanyl 2ml Vial) 50 mcg PRN Q1HR PRN IV PAIN 07/20/19 20:45 07/21/19 20:44 07/21/19 09:16 Sodium Chloride 1,000 ml @ 75 mls/hr [id number] IV 07/20/19 20:41 07/21/19 20:40 07/21/19 07:31 Benztropine Mesylate (Cogentin) 1 mg BID PO 07/21/19 09:00 07/21/19 09:12 Divalproex Sodium (Depakote) 500 mg BID PO 07/21/19 09:00 07/21/19 09:14 Furosemide (Lasix) 40 mg DAILY PO 07/21/19 09:00 07/21/19 09:11 Isosorbide Mononitrate (Imdur) 30 mg DAILY PO 07/21/19 09:00 07/21/19 09:13 Lisinopril (Prinivil) 20 mg DAILY PO 07/21/19 09:00 07/21/19 09:13 Pregabalin (Lyrica) 50 mg BID PO 07/21/19 09:00 07/21/19 09:14 Topiramate (Topamax) 25 mg BID PO 07/21/19 09:00 07/21/19 09:14 Fluoxetine HCl (PROzac) 40 mg DAILY PO 07/21/19 09:00 07/21/19 09:13 Potassium Chloride (Klor-Con) 20 meq DAILYWBKFT PO 07/21/19 09:00 07/21/19 09:19 ALLERGIES ALLERGIES: Coded Allergies: Sulfa (Sulfonamide Antibiotics) (Verified Allergy, Severe, rash, tongue swelling, 04/15/15) Iodinated Contrast Media (Verified Allergy, Intermediate, rash, 04/15/15) Penicillins (Verified Allergy, Intermediate, Hives, 04/15/15) aspirin (Verified Allergy, Intermediate, Hives, 8/3/15) codeine (Verified Allergy, Intermediate, Hives; SEE COMMENT, 06/08/15) PT REPORTS TAKING LORTAB WITHOUT COMPLICATIONS, PER ED MD diphenhydramine HCl (Verified Allergy, Intermediate, rash, 12/19/13) latex (Verified Allergy, Intermediate, Rash, 12/18/13) ROS Review of System 14 point ROS evaluated with pertinent positives noted per HPI PHYSICAL EXAM General: Alert, Oriented X3, Cooperative, No acute distress HEENT: Atraumatic, Mucous membr. moist/pink Lungs: Clear to auscultation, Normal air movement Heart: Regular rate (SR), Normal S1, Normal S2, Other (3/6 systolic murmur to GREGORIO borde with audible click) Abdomen: Soft Extremities: No cyanosis, No edema Skin: No breakdown, No significant lesion Neuro: Normal speech, Sensation intact Psych/Mental Status: Mental status NL, Mood NL MUSCULOSKELETAL: Osteoarthritic changes both hands VITALS/I&O VITALS/I&O: Vital Signs Date Time Temp Pulse Resp B/P (MAP) Pulse Ox O2 Delivery O2 Flow Rate FiO2 07/21/19 09:16 Room Air 07/21/19 09:13 60 131/67 07/21/19 06:55 97.7 18 98 2.0 97.7 I & O 07/20/19 07/20/19 07/21/19 15:00 23:00 07:00 Intake Total 1000 ml 120 ml Output Total 230 ml Balance 1000 ml -110 ml LABS Lab: Laboratory Tests Test 07/20/19 19:00 07/20/19 20:00 07/21/19 00:02 White Blood Count 6.2 x10^3/uL (4.0-11.0) Red Blood Count 4.84 x10^6/uL (3.50-5.40) Hemoglobin 14.0 g/dL (12.0-15.5) Hematocrit 41.1 % (36.0-47.0) Mean Corpuscular Volume 85 fL (79-100) Mean Corpuscular Hemoglobin 29 pg (25-35) Mean Corpuscular Hemoglobin Concent 34 g/dL (31-37) Red Cell Distribution Width 14.8 % (11.5-14.5) H Platelet Count 159 x10^3/uL (140-400) Neutrophils (%) (Auto) 66 % (31-73) Lymphocytes (%) (Auto) 27 % (24-48) Monocytes (%) (Auto) 6 % (0-9) Eosinophils (%) (Auto) 2 % (0-3) Basophils (%) (Auto) 0 % (0-3) Neutrophils # (Auto) 4.1 x10^3/uL (1.8-7.7) Lymphocytes # (Auto) 1.6 x10^3/uL (1.0-4.8) Monocytes # (Auto) 0.4 x10^3/uL (0.0-1.1) Eosinophils # (Auto) 0.1 x10^3/uL (0.0-0.7) Basophils # (Auto) 0.0 x10^3/uL (0.0-0.2) Prothrombin Time 29.3 SEC (11.7-14.0) H Prothrombin Time INR 2.8 (0.8-1.1) H Sodium Level 147 mmol/L (136-145) H Potassium Level 3.6 mmol/L (3.5-5.1) Chloride Level 108 mmol/L (98-107) H Carbon Dioxide Level 32 mmol/L (21-32) Anion Gap 7 (6-14) Blood Urea Nitrogen 21 mg/dL (7-20) H Creatinine 0.8 mg/dL (0.6-1.0) Estimated GFR (Cockcroft-Gault) 73.7 BUN/Creatinine Ratio 26 (6-20) H Glucose Level 93 mg/dL (70-99) Calcium Level 8.6 mg/dL (8.5-10.1) Total Bilirubin 0.3 mg/dL (0.2-1.0) Aspartate Amino Transferase (AST) 12 U/L (15-37) L Alanine Aminotransferase (ALT) 17 U/L (14-59) Alkaline Phosphatase 63 U/L (46-116) Troponin I Quantitative < 0.017 ng/mL (0.000-0.055) < 0.017 ng/mL (0.000-0.055) UJ-Msm-U-Type Natriuretic Peptide 178 pg/mL (0-124) H Total Protein 6.8 g/dL (6.4-8.2) Albumin 3.4 g/dL (3.4-5.0) Albumin/Globulin Ratio 1.0 (1.0-1.7) Lipase 113 U/L (73-393) Urine Collection Type Unknown Urine Color Yellow Urine Clarity Clear Urine pH 7.0 Urine Specific [place] 1.020 Urine Protein Negative mg/dL (NEG-TRACE) Urine Glucose (UA) Negative mg/dL (NEG) Urine Ketones (Stick) Negative mg/dL (NEG) Urine Blood Negative (NEG) Urine Nitrite Negative (NEG) Urine Bilirubin Negative (NEG) Urine Urobilinogen Dipstick 1.0 mg/dL (0.2 mg/dL) Urine Leukocyte Esterase Trace (NEG) Urine RBC 0 /HPF (0-2) Urine WBC 1-4 /HPF (0-4) Urine Squamous Epithelial Cells Mod /LPF Urine Bacteria Many /HPF (0-FEW) Laboratory Tests 07/20/19 19:00 Laboratory Tests 07/20/19 19:00 ECHOCARDIOGRAM ECHOCARDIOGRAM <Conclusion> Technically difficult study. The left ventricle is normal size. The left ventricular systolic function is normal and the ejection fraction is within normal range. The Ejection Fraction is estimated at 50%. There is borderline concentric left ventricular hypertrophy. There is a mechanical aortic valve prosthesis. The prosthetic aortic valve appears normal. Calculated aortic valve area is 1.4 cm2 with maximum pressure gradient of 38 mmHg and mean pressure gradient of 22 mmHg. Doppler and Color-flow revealed trace to mild mitral regurgitation. Doppler and Color Flow revealed trace to mild tricuspid regurgitation. DATE: 09/01/18 1801 STRESS TEST STRESS TEST Conclusion 1. No EKG evidence of stressed induced ischemia. 2. Nuclear imaging shows no reversible ischemia or infarct. 3. Normal left ventricular systolic function with an ejection fraction of greater than 70%. 4. Low risk Lexiscan nuclear stress test. DATE: 10/26/17 1245 HEART CATH HEART CATH Coronaries. Left main: the left main had no lesions. Left anterior descending vessel. The LAD had a mid 20% lesion. Left circumflex. The left circumflex had no lesions. Right coronary artery. The right coronary had multiple stents that were all widely patent. DATE: 11/17/13 1000 ASSESSMENT/PLAN ASSESSMENT/PLAN 1. Atypical chest pain: more of abd pain with vomiting. GI following. Doubt ACS. 2. Nausea/vomiting with hx of gastroparesis 3. CAD: Multiple past stents, clinically stable. 4. PPM in situ: hx of SSS. ([employer]) 5. AVR: mechanical valve. Recent 2-D echo showed normal function. 6. Chronic Coumadin therapy: INR 2.8 7. HTN: controlled 8. HLP: statin 9. Schizophrenia/bipolar disorder Recommendations 1. Repeat EKG. Will interrogate device given her symptom of palpitations. 2. She is scheduled for MPI on 07/26-. Will continue as scheduled 3. Follow GI input. 4. Nothing further cardiac reyes. Will plan for outpt TTE. C[place] LUNDBERG GASKET NOTCHER Jul 21, 2019 09:53
--- NOTE | 2019-07-21 10:07 | PDOC ---
Provider Note Provider Note Pt seen.H&P dictated.#[id number]. NICOLE SMITH MD Jul 21, 2019 10:07
[2019-07-21 10:14] VITALS: BP 113/55
--- NOTE | 2019-07-21 10:32 | HP ---
ADMIT DATE: 07/20/2019 REASON FOR ADMISSION TO THE HOSPITAL: Chest pain, abdominal pain, and the patient has a known history of coronary artery disease. ATTENDING PHYSICIAN: Dr. Smith. PRIMARY CARE PHYSICIAN: Dr. West. HISTORY OF PRESENT ILLNESS: The patient is a 58-year-old female. The patient has a history of known coronary artery disease. She has a mechanical aortic valve. She has a pacemaker and a couple of cardiac stents. She was having chest pain, going to the left side of the arm and to the back. She also was complaining of lower abdominal pain. Denies any diarrhea or blood in the stool. Has some nausea and vomiting. Came to the Emergency Room. The patient was admitted for further cardiac evaluation. PAST MEDICAL HISTORY: As mentioned above, history of coronary artery disease, hypertension, hyperlipidemia, asthma, COPD, anxiety, depression, GERD, ischemic colitis, gastroparesis, bipolar, depression, and schizophrenia. PAST SURGICAL HISTORY: Gallbladder surgery, hysterectomy, mechanical aortic valve on Coumadin, pacemaker, and she has a couple of stents in the heart. FAMILY HISTORY: Positive for diabetes and heart disease. SOCIAL HISTORY: Denies smoking, alcohol or drug abuse. She lives with her and she is on oxygen as well as ambulates with a walker. ALLERGIES: IODINATED CONTRAST, PENICILLIN, SULFA, ASPIRIN, CODEINE, BENADRYL, AND LATEX. MEDICATIONS AT HOME: She is on atorvastatin 10 mg daily, benztropine 1 mg twice a day, fluoxetine 40 mg daily, Lasix 40 mg daily, isosorbide 30 mg daily, lisinopril 20 mg daily, mirtazapine 30 mg daily, Zyprexa 15 mg daily, Zofran 4 mg 3 times a day, potassium 20 mEq daily, Lyrica 50 mg twice a day, temazepam 50 mg at bedtime, topiramate 25 mg twice a day, trazodone 50 mg daily, Coumadin 5 mg daily, and Depakote 500 mg twice a day. REVIEW OF SYMPTOMS: Complains of lower abdominal pain. Denies any diarrhea or blood. Has some nausea and vomiting. Has some pain in the epigastric as well as left side of the chest. Denies any fever or shortness of breath. Rest of the 14-system was reviewed and negative. PHYSICAL EXAMINATION: GENERAL: The patient is a little bit nauseated, was in pain. VITAL SIGNS: Temperature 97, pulse 60, respirations 18, blood pressure 119/56, and pulse oximetry 97 on 2 liters. HEENT: Head is atraumatic. The patient has slight irregular left pupil, was born like that. Oral cavity, dentures. NECK: Supple. Thyroid not enlarged. The patient has a scar of mechanical heart surgery, pacemaker in left side of chest. CARDIOVASCULAR: S1, S2. LUNGS: Clear to auscultation. ABDOMEN: Soft. Has tenderness in the left lower quadrant. No rebound. Bowel sounds are present. EXTERNAL GENITALIA: No Siu. RECTAL: Deferred. EXTREMITIES: No calf tenderness. No edema. Pulses 1+. NEUROLOGIC: Moving all extremities. No focal deficits noted. LABORATORY DATA: Shows a white count of 6, hemoglobin 14, and platelets 159. INR 2.8. Electrolytes show sodium 147, potassium 3.6, chloride 108, bicarbonate 32, BUN 21, creatinine 0.8, and glucose 93. LFTs were normal. Troponin was negative. Urine was negative for infection. EKG negative for ischemia. CT head negative. Chest x-ray negative. CT of the abdomen and pelvis was negative. FINAL IMPRESSION: 1. Chest pain, cardiac evaluation, has a known history of cardiac stents, mechanical aortic valve as well as pacemaker. 2. Abdominal pain, had a history of ischemic colitis in the past, possible recurrence. 3. History of chronic obstructive pulmonary disease and asthma. 4. Anxiety and depression. 5. Gastroesophageal reflux disease. 6. Schizophrenia and bipolar. PLAN: At this time, was admitted to the hospital. The patient is on Coumadin. INR is therapeutic. Cardiology is consulted. Serial cardiac enzymes, EKG, and security monitor. We will have GI to see the patient. I believe the patient had a colonoscopy 2-3 years ago, was found as possible ischemic colitis, had multiple EGDs in the past. Control pain for the time being. NICOLE SMITH MD DR: ISAMAR/cori JOB#: [id number] / [id number] RUBIO Birch
--- NOTE | 2019-07-21 11:24 | PDOC2 ---
GI CONSULT Reason For Consult: Abd pain HPI: HPI: 58 y/o female known to us from many past encounters. This time reports mid/left-sided abdominal pain radiating around to left flank and into left chest - "stabbing and aching," worse w/ movement. Denies precipitating events. Also had some sweating, shortness of breath, and dizziness. Denies precipitating events. Tells me she is taking Protonix, Zofran, Reglan, Pepto, and hyoscyamine at home. Then we reviewed her med list together which included none of these - then she thinks maybe Dr. West stopped her GI meds - then says she takes Reglan - then says she doesn't. Denies vomiting but says she "can't eat because I get sick." Denies dysphagia, weight loss, bleeding, and constipation. Typically has 2-3 stools daily. Per past encounters, h/o diarrhea w/ Colestid use. D/w nurse - c/o "all over" abd pain, ate some but not much breakfast. H/o GERD and gastroparesis (GES w/ 22% retention at 4 hours in 2018). Numerous EGDs and colonoscopies in the past - both normal except diverticulosis in 04/2018. H/o ischemic colitis. S/p cholecystectomy. On Warfarin. PMH: PMH: CAD w/ stents, HTN, HLD, asthma, COPD, GERD, gastroparesis, ischemic colitis, diverticulosis, anxiety, depression, bipolar, schizophrenia, narcolepsy, OA cholecystectomy, hysterectomy, mechanical aortic valve, pacemaker, cardiac cath FH: Family History: No pertinent hx Social History: Smoke: No ALCOHOL: none Drugs: None ROS: GEN: +sweats HEENT: Denies blurred vision, sore throat CV: +CP RESP: +SOA GI: Per HPI : Denies hematuria, dysuria ENDO: Denies weight changes NEURO: +dizziness MSK: Denies weakness, joint pain/swelling SKIN: Denies jaundice, pruritus Vitals: Vitals: Vital Signs Date Time Temp Pulse Resp B/P (MAP) Pulse Ox O2 Delivery O2 Flow Rate FiO2 07/21/19 10:14 98.5 60 18 113/55 (74) 95 Nasal Cannula 2.0 98.5 Labs: Labs: Laboratory Tests Test 07/20/19 19:00 07/20/19 20:00 07/21/19 00:02 White Blood Count 6.2 x10^3/uL (4.0-11.0) Red Blood Count 4.84 x10^6/uL (3.50-5.40) Hemoglobin 14.0 g/dL (12.0-15.5) Hematocrit 41.1 % (36.0-47.0) Mean Corpuscular Volume 85 fL (79-100) Mean Corpuscular Hemoglobin 29 pg (25-35) Mean Corpuscular Hemoglobin Concent 34 g/dL (31-37) Red Cell Distribution Width 14.8 % (11.5-14.5) Platelet Count 159 x10^3/uL (140-400) Neutrophils (%) (Auto) 66 % (31-73) Lymphocytes (%) (Auto) 27 % (24-48) Monocytes (%) (Auto) 6 % (0-9) Eosinophils (%) (Auto) 2 % (0-3) Basophils (%) (Auto) 0 % (0-3) Neutrophils # (Auto) 4.1 x10^3/uL (1.8-7.7) Lymphocytes # (Auto) 1.6 x10^3/uL (1.0-4.8) Monocytes # (Auto) 0.4 x10^3/uL (0.0-1.1) Eosinophils # (Auto) 0.1 x10^3/uL (0.0-0.7) Basophils # (Auto) 0.0 x10^3/uL (0.0-0.2) Prothrombin Time 29.3 SEC (11.7-14.0) Prothromb Time International Ratio 2.8 (0.8-1.1) Sodium Level 147 mmol/L (136-145) Potassium Level 3.6 mmol/L (3.5-5.1) Chloride Level 108 mmol/L (98-107) Carbon Dioxide Level 32 mmol/L (21-32) Anion Gap 7 (6-14) Blood Urea Nitrogen 21 mg/dL (7-20) Creatinine 0.8 mg/dL (0.6-1.0) Estimated GFR (Cockcroft-Gault) 73.7 BUN/Creatinine Ratio 26 (6-20) Glucose Level 93 mg/dL (70-99) Calcium Level 8.6 mg/dL (8.5-10.1) Total Bilirubin 0.3 mg/dL (0.2-1.0) Aspartate Amino Transf (AST/SGOT) 12 U/L (15-37) Alanine Aminotransferase (ALT/SGPT) 17 U/L (14-59) Alkaline Phosphatase 63 U/L (46-116) Troponin I Quantitative < 0.017 ng/mL (0.000-0.055) < 0.017 ng/mL (0.000-0.055) IH-Hfd-S-Type Natriuretic Peptide 178 pg/mL (0-124) Total Protein 6.8 g/dL (6.4-8.2) Albumin 3.4 g/dL (3.4-5.0) Albumin/Globulin Ratio 1.0 (1.0-1.7) Lipase 113 U/L (73-393) Urine Collection Type Unknown Urine Color Yellow Urine Clarity Clear Urine pH 7.0 Urine Specific Hoople 1.020 Urine Protein Negative mg/dL (NEG-TRACE) Urine Glucose (UA) Negative mg/dL (NEG) Urine Ketones (Stick) Negative mg/dL (NEG) Urine Blood Negative (NEG) Urine Nitrite Negative (NEG) Urine Bilirubin Negative (NEG) Urine Urobilinogen Dipstick 1.0 mg/dL (0.2 mg/dL) Urine Leukocyte Esterase Trace (NEG) Urine RBC 0 /HPF (0-2) Urine WBC 1-4 /HPF (0-4) Urine Squamous Epithelial Cells Mod /LPF Urine Bacteria Many /HPF (0-FEW) Allergies: Coded Allergies: Sulfa (Sulfonamide Antibiotics) (Verified Allergy, Severe, rash, tongue swelling, 04/15/15) Iodinated Contrast Media (Verified Allergy, Intermediate, rash, 04/15/15) Penicillins (Verified Allergy, Intermediate, Hives, 04/15/15) aspirin (Verified Allergy, Intermediate, Hives, 04/15/15) codeine (Verified Allergy, Intermediate, Hives; SEE COMMENT, 06/08/15) PT REPORTS TAKING LORTAB WITHOUT COMPLICATIONS, PER ED diphenhydramine HCl (Verified Allergy, Intermediate, rash, 12/19/13) latex (Verified Allergy, Intermediate, Rash, 12/18/13) Medications: Current Medications Medications (Trade) Dose Ordered Sig/Galilea Route PRN Reason Start Time Stop Time Status Last Admin Dose Admin Sodium Chloride 1,000 ml @ 1,000 mls/hr Q1H IV 07/20/19 18:41 07/20/19 19:40 DC 07/20/19 19:17 Ondansetron HCl (Zofran) 4 mg 1X ONCE IV 07/20/19 19:00 07/20/19 19:01 DC 07/20/19 19:13 Fentanyl Citrate (Fentanyl 2ml Vial) 50 mcg 1X ONCE IVP 07/20/19 19:00 07/20/19 19:01 DC 07/20/19 19:16 Fentanyl Citrate (Fentanyl 2ml Vial) 50 mcg 1X ONCE IVP 07/20/19 20:30 07/20/19 20:34 DC 07/20/19 21:22 Famotidine (Pepcid Vial) 20 mg 1X ONCE IVP 07/20/19 20:30 07/20/19 20:34 DC 07/20/19 21:21 Ondansetron HCl (Zofran) 4 mg PRN Q8HRS PRN IV NAUSEA/VOMITING 07/20/19 20:45 07/21/19 20:44 07/21/19 05:59 Fentanyl Citrate (Fentanyl 2ml Vial) 50 mcg PRN Q1HR PRN IV PAIN 07/20/19 20:45 07/21/19 20:44 07/21/19 09:16 Sodium Chloride 1,000 ml @ 75 mls/hr [id number] IV 07/20/19 20:41 07/21/19 20:40 07/21/19 07:31 Benztropine Mesylate (Cogentin) 1 mg BID PO 07/21/19 09:00 07/21/19 09:12 Divalproex Sodium (Depakote) 500 mg BID PO 07/21/19 09:00 07/21/19 09:14 Furosemide (Lasix) 40 mg DAILY PO 07/21/19 09:00 07/21/19 09:11 Isosorbide Mononitrate (Imdur) 30 mg DAILY PO 07/21/19 09:00 07/21/19 09:13 Lisinopril (Prinivil) 20 mg DAILY PO 07/21/19 09:00 07/21/19 09:13 Pregabalin (Lyrica) 50 mg BID PO 07/21/19 09:00 07/21/19 09:14 Topiramate (Topamax) 25 mg BID PO 07/21/19 09:00 07/21/19 09:14 Fluoxetine HCl (PROzac) 40 mg DAILY PO 07/21/19 09:00 07/21/19 09:13 Potassium Chloride (Klor-Con) 20 meq DAILYWBKFT PO 07/21/19 09:00 07/21/19 09:19 Imaging: Imaging: CT A/P IMPRESSION: 1. No acute abnormality of abdomen or pelvis. 2. Subxiphoid and infraumbilical ventral hernias containing only fat, unchanged. 3. Status post cholecystectomy and hysterectomy. CXR Impression: Borderline pulmonary vasculature congestion. Head CT IMPRESSION: 1. No evidence of acute intracranial abnormality. 2. Mild atrophy for age. PE: GEN: NAD - was asleep in chair HEENT: Atraumatic, PERRL LUNGS: CTAB HEART: RRR - mild tenderness to palpation left chest ABD: NABS, round, soft, LUQ discomfort wrapping around left ribs to left flank EXTREMITY: No edema SKIN: No rashes, no jaundice NEURO/PSYCH: A & O 3, forgetful A/P: A/P: Chronic/recurrent abd pain (left-sided), lack of appetite GERD Gastroparesis CRC screen - UTD Diverticulosis H/o ischemic colitis S/p cholecystectomy CAD and AVR - on Warfarin Suspected non-compliance - h/o same -- Chronic issues evaluated extensively in the past. Question compliance w/ PPI and Reglan. ?stress test - inpt vs outpt - cardiology following Resume PPI and Reglan, observe for now. Will review any needs to repeat scopes again w/ Dr. Baig. ANANT OLIVAREZ Jul 21, 2019 11:24
--- NOTE | 2019-07-21 11:47 | EKG ---
[facility] [address] [place] [address] Test Date: 2019-07-21 Test Time: 11:44:03 Pat Name: RHETT HERNANDEZ Department: Room: 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
--- NOTE | 2019-07-21 13:03 | NUR ---
SS following for discharge planning. SS reviewed pt chart. Pt is from home with spouse and is currently on room air. PT/OT evaluated. [facility] unit recommended. SS met with pt to discuss discharge planning. Pt reported that she had [facility], ; fax [phone], in the past. Pt reported that she would [facility] to go to [facility] for some [facility]. Options discussed. Pt requested referral be phoned and faxed to [facility], ; fax [phone]. SS phoned and faxed referral. SS will await acceptance decision and insurance determination and will proceed accordingly with discharge planning.
[2019-07-21 14:50] VITALS: BP 118/55
--- NOTE | 2019-07-21 15:26 | NUR ---
[employer] called & has been here to check patient's device.
[2019-07-21] MEDS ORDERED: WARFARIN 3 MG TABLET. PO SCH (16:00)
[2019-07-21] MEDS ORDERED: WARFARIN 5 MG TABLET. PO SCH (16:00)
--- NOTE | 2019-07-21 16:11 | NUR ---
SS following up with discharge planning. Pt accepted at [facility], ; fax [phone], pending insurance authorization. SS will continue to follow for discharge planning.
[2019-07-21] MEDS: METOCLOPRAMIDE ORAL SOLN 10 MG/10 ML SOLUTION. PO SCH ×2 (16:25→20:45)
[2019-07-21] MEDS: POTASSIUM CHLORIDE 10 MEQ TABLET.ER. PO SCH (17:42)
[2019-07-21 19:12] VITALS: BP 113/56
[2019-07-21] MEDS: traZODone 50 MG TABLET. PO SCH (20:45)
[2019-07-21] MEDS: OLANZapine 5 MG TABLET PO SCH (20:45)
[2019-07-21] MEDS: ATORVASTATIN CALCIUM 10 MG TABLET. PO SCH (20:46)
[2019-07-21] MEDS: MIRTAZAPINE 15 MG TABLET PO SCH (20:46)
[2019-07-21] MEDS ORDERED: DIVALPROEX DELAYED RELEASE 500 MG TABLET.DR. PO SCH (21:00)
[2019-07-21 22:45] VITALS: BP 120/60
[2019-07-22 03:59] VITALS: BP 115/58
[2019-07-22 04:23] LABS: PROTHROMBIN TIME PATIENT 19.8 SEC (11.7-14.0)
[2019-07-22 07:33] VITALS: BP 128/60
[2019-07-22] MEDS: POTASSIUM CHLORIDE 10 MEQ TABLET.ER. PO SCH ×2 (07:38→16:31)
[2019-07-22] MEDS: PANTOPRAZOLE 40 MG TABLET.DR. PO SCH (07:38)
[2019-07-22] MEDS: METOCLOPRAMIDE ORAL SOLN 10 MG/10 ML SOLUTION. PO SCH ×4 (07:38→21:44)
[2019-07-22] MEDS: DIVALPROEX DELAYED RELEASE 500 MG TABLET.DR. PO SCH ×2 (08:49→21:46)
[2019-07-22] MEDS: BENZTROPINE MESYLATE 1 MG TABLET. PO SCH ×2 (08:49→21:46)
[2019-07-22] MEDS: FUROSEMIDE 40 MG TABLET. PO SCH (08:50)
[2019-07-22] MEDS: ISOSORBIDE MONONITRATE ER 30 MG TAB.ER.24H PO SCH (08:50)
[2019-07-22] MEDS: FLUoxetine HCL 20 MG CAPSULE PO SCH (08:51)
[2019-07-22] MEDS: PREGABALIN 50 MG CAPSULE PO SCH ×2 (08:52→21:45)
[2019-07-22] MEDS: TOPIRAMATE 25 MG TABLET. PO SCH ×2 (08:52→21:46)
[2019-07-22] MEDS: LISINOPRIL 20 MG TABLET PO SCH (08:53)
--- NOTE | 2019-07-22 09:35 | PDOC ---
PROGRESS NOTES Subjective Subjective does not feel well Objective Objective Vital Signs Date Time Temp Pulse Resp B/P (MAP) Pulse Ox O2 Delivery O2 Flow Rate FiO2 07/22/19 08:53 61 128/60 07/22/19 08:00 Nasal Cannula 2.0 07/22/19 07:33 97.5 16 95 97.5 Intake and Output 07/22/19 07:00 Intake Total 340 ml Output Total 1900 ml Balance -1560 ml Intake Oral 340 ml Output Urine Total 1900 ml Physical Exam Abdomen: Soft Heart: Regular rate (SR), Normal S1, Normal S2, Other (3/6 systolic murmur to GREGORIO borde with audible click) Extremities: No cyanosis, No edema General: Alert, Oriented X3, Cooperative, No acute distress HEENT: Atraumatic, Mucous membr. moist/pink Lungs: Clear to auscultation, Normal air movement MUSCULOSKELETAL: Osteoarthritic changes both hands Neuro: Normal speech, Sensation intact Psych/Mental Status: Mental status NL, Mood NL Skin: No breakdown, No significant lesion Diagnosis Problem List Problems Medical Problems: (1) Vomiting Status: Acute Assessment Assessment Problems Medical Problems: (1) Vomiting Status: Acute FINAL IMPRESSION: 1. Chest pain, cardiac evaluation, has a known history of cardiac stents, mechanical aortic valve as well as pacemaker. 2. Abdominal pain, had a history of ischemic colitis in the past, possible recurrence. 3. History of chronic obstructive pulmonary disease and asthma. 4. Anxiety and depression. 5. Gastroesophageal reflux disease. 6. Schizophrenia and bipolar. PLAN: cardiac enzymes neg. ekg no ischemia seen by GI labs ok , inr 1.7 today inc coumadin dose give lovenox inj today to bridge At this time, was admitted to the hospital. The patient is on Coumadin. INR is therapeutic. Cardiology is consulted. Serial cardiac enzymes, EKG, and collator hand. We will have GI to see the patient. I believe the patient had a colonoscopy 2-3 years ago, was found as possible ischemic colitis, had multiple EGDs in the past. Control pain for the time being. Plan Plan of Care Problems Medical Problems: (1) Vomiting Status: Acute Comment Review of Relevant I have reviewed the following items yonathan (where applicable) has been applied. Labs Laboratory Tests Test 07/22/19 04:00 Prothrombin Time 19.8 SEC (11.7-14.0) Prothromb Time International Ratio 1.7 (0.8-1.1) Medications Current Medications Atorvastatin Calcium (Lipitor) 10 mg QHS PO Last administered on 07/21/19 20:46; Start 07/21/19 at 21:00 Divalproex Sodium (Depakote) 500 mg BID PO ; Start 07/21/19 at 21:00; Stop 07/21/19 at 10:11; Status DC Metoclopramide HCl (Reglan Oral Solution) 5 mg QIDACHS PO Last administered on 07/22/19 07:38; Start 07/21/19 at 16:30 Mirtazapine (Remeron) 30 mg QHS PO Last administered on 07/21/19 20:46; Start 07/21/19 at 21:00 Olanzapine (ZyPREXA) 15 mg QHS PO Last administered on 07/21/19 20:45; Start 07/21/19 at 21:00 Pantoprazole Sodium (Protonix) 40 mg DAILYAC PO Last administered on 07/22/19 07:38; Start 07/22/19 at 07:30 Potassium Chloride (Klor-Con) 10 meq BIDWMEALS PO Last administered on 07/22/19 07:38; Start 07/21/19 at 17:00 Trazodone HCl (Desyrel) 50 mg HS PO Last administered on 07/21/19 20:45; Start 07/21/19 at 21:00 Warfarin Sodium (Coumadin) 3 mg DAILY16 PO Last administered on 07/21/19 16:24; Start 07/21/19 at 16:00; Stop 07/22/19 at 08:56; Status DC Warfarin Sodium (Coumadin) 5 mg DAILY16 PO ; Start 07/21/19 at 16:00; Stop 07/21/19 at 09:02; Status DC Warfarin Sodium (Coumadin) 5 mg DAILY16 PO ; Start 07/22/19 at 16:00 Vitals/I & O Vital Sign - Last 24 Hours 07/21/19 07/21/19 07/21/19 07/21/19 09:46 10:14 14:50 19:12 Temp 98.5 97.3 98.7 98.5 97.3 98.7 Pulse 60 60 60 Resp 18 22 16 B/P (MAP) 113/55 (74) 118/55 (76) 113/56 (75) Pulse Ox 95 95 92 O2 Delivery Room Air Nasal Cannula Room Air Room Air O2 Flow Rate 2.0 07/21/19 07/21/19 07/22/19 07/22/19 20:00 22:45 03:59 07:33 Temp 98.8 97.7 97.5 98.8 97.7 97.5 Pulse 61 60 61 Resp 16 16 16 B/P (MAP) 120/60 (80) 115/58 (77) 128/60 (82) Pulse Ox 94 94 95 O2 Delivery Nasal Cannula Room Air Room Air Room Air O2 Flow Rate 2.0 07/22/19 07/22/19 07/22/19 08:00 08:50 08:53 Pulse 61 61 B/P (MAP) 128/60 128/60 O2 Delivery Nasal Cannula O2 Flow Rate 2.0 Intake and Output 07/21/19 07/21/19 07/22/19 15:00 23:00 07:00 Intake Total 240 ml 100 ml Output Total 1300 ml 600 ml Balance -1060 ml -500 ml NICOLE SMITH MD Jul 22, 2019 09:35
[2019-07-22 11:26] VITALS: BP 141/63
--- NOTE | 2019-07-22 12:00 | NUR ---
Assumed pt care at this time. Report received from LISA Carreon. Pt in bed watching tv. Denies needs. Call light within reach. Will return to monitor.
[2019-07-22 15:06] VITALS: BP 152/68
[2019-07-22] MEDS: WARFARIN 5 MG TABLET. PO SCH (16:31)
[2019-07-22 19:00] VITALS: BP 152/71
[2019-07-22] MEDS: ATORVASTATIN CALCIUM 10 MG TABLET. PO SCH (21:45)
[2019-07-22] MEDS: MIRTAZAPINE 15 MG TABLET PO SCH (21:46)
[2019-07-22] MEDS: traZODone 50 MG TABLET. PO SCH (21:46)
[2019-07-22] MEDS: OLANZapine 5 MG TABLET PO SCH (21:47)
[2019-07-22 23:00] VITALS: BP 157/74
[2019-07-23 03:00] VITALS: BP 161/72
[2019-07-23 07:37] VITALS: BP 174/81
[2019-07-23] MEDS: PANTOPRAZOLE 40 MG TABLET.DR. PO SCH (08:13)
[2019-07-23] MEDS: METOCLOPRAMIDE ORAL SOLN 10 MG/10 ML SOLUTION. PO SCH ×4 (08:13→21:45)
[2019-07-23] MEDS: POTASSIUM CHLORIDE 10 MEQ TABLET.ER. PO SCH ×2 (08:14→16:46)
[2019-07-23] MEDS: BENZTROPINE MESYLATE 1 MG TABLET. PO SCH ×2 (08:15→21:45)
[2019-07-23] MEDS: TOPIRAMATE 25 MG TABLET. PO SCH ×2 (08:15→21:41)
[2019-07-23] MEDS: DIVALPROEX DELAYED RELEASE 500 MG TABLET.DR. PO SCH ×2 (08:15→21:41)
[2019-07-23] MEDS: LISINOPRIL 20 MG TABLET PO SCH (08:16)
[2019-07-23] MEDS: PREGABALIN 50 MG CAPSULE PO SCH ×2 (08:16→21:42)
[2019-07-23] MEDS: FLUoxetine HCL 20 MG CAPSULE PO SCH (08:17)
[2019-07-23] MEDS: FUROSEMIDE 40 MG TABLET. PO SCH (08:17)
[2019-07-23] MEDS: ISOSORBIDE MONONITRATE ER 30 MG TAB.ER.24H PO SCH (08:18)
--- NOTE | 2019-07-23 10:49 | PDOC ---
PROGRESS NOTES Subjective Subjective feeling better today Objective Objective Vital Signs Date Time Temp Pulse Resp B/P (MAP) Pulse Ox O2 Delivery O2 Flow Rate FiO2 07/23/19 08:18 63 174/81 07/23/19 07:37 97.5 20 93 Room Air 97.5 07/22/19 08:00 2.0 Intake and Output 07/23/19 07:00 Intake Total 1500 ml Output Total 1700 ml Balance -200 ml Intake Oral 1500 ml Output Urine Total 1700 ml Physical Exam Abdomen: Soft Heart: Regular rate (SR), Normal S1, Normal S2, Other (3/6 systolic murmur to GREGORIO borde with audible click) Extremities: No cyanosis, No edema General: Alert, Oriented X3, Cooperative, No acute distress HEENT: Atraumatic, Mucous membr. moist/pink Lungs: Clear to auscultation, Normal air movement MUSCULOSKELETAL: Osteoarthritic changes both hands Neuro: Normal speech, Sensation intact Psych/Mental Status: Mental status NL, Mood NL Skin: No breakdown, No significant lesion Diagnosis Problem List Problems Medical Problems: (1) Vomiting Status: Acute Assessment Assessment Problems Medical Problems: (1) Vomiting Status: Acute FINAL IMPRESSION: 1. Chest pain, cardiac evaluation, has a known history of cardiac stents, mechanical aortic valve as well as pacemaker. 2. Abdominal pain, had a history of ischemic colitis in the past, possible recurrence. 3. History of chronic obstructive pulmonary disease and asthma. 4. Anxiety and depression. 5. Gastroesophageal reflux disease. 6. Schizophrenia and bipolar. PLAN: d/c to SNU tomorrow. cardiac enzymes neg.stress test out pt ekg no ischemia seen by GI inr pending inc coumadin dose 5mg, give lovenox inj today to bridge Plan Plan of Care Problems Medical Problems: (1) Vomiting Status: Acute Comment Review of Relevant I have reviewed the following items yonathan (where applicable) has been applied. Labs Microbiology 07/20/19 Urine Culture - Final, Complete 07/20/19 Urine Culture Result 1 (JOYCE) - Final, Complete Medications Current Medications Warfarin Sodium (Coumadin) 5 mg DAILY16 PO Last administered on 07/22/19at 16:31; Start 07/22/19 at 16:00 Vitals/I & O Vital Sign - Last 24 Hours 07/22/19 07/22/19 07/22/19 07/22/19 11:26 15:06 19:00 20:00 Temp 97.8 97.9 98.2 97.8 97.9 98.2 Pulse 62 66 69 Resp 16 16 B/P (MAP) 141/63 (89) 152/68 (96) 152/71 (98) Pulse Ox 97 98 96 O2 Delivery Room Air Room Air Room Air Room Air 07/22/19 07/23/19 07/23/19 07/23/19 23:00 03:00 07:37 08:16 Temp 97.8 97.6 97.5 97.8 97.6 97.5 Pulse 61 60 63 63 Resp 20 20 20 B/P (MAP) 157/74 (101) 161/72 (101) 174/81 (112) 174/81 Pulse Ox 94 92 93 O2 Delivery Room Air Room Air Room Air 07/23/19 08:18 Pulse 63 B/P (MAP) 174/81 Intake and Output 07/22/19 07/22/19 07/23/19 15:00 23:00 07:00 Intake Total 600 ml 300 ml 600 ml Output Total 1100 ml 600 ml Balance 600 ml -800 ml 0 ml NICOLE SMITH MD Jul 23, 2019 10:49
[2019-07-23] MEDS ORDERED: METO10SO PO (11:05)
[2019-07-23] MEDS ORDERED: PANT40TA77 PO (11:05)
--- NOTE | 2019-07-23 11:07 | SNU/HH DC ---
DISCHARGE ORDERS DISCHARGE INFORMATION: DISCHARGE DATE: Jul 24, 2019 FINAL DIAGNOSIS Problems Medical Problems: (1) Vomiting Status: Acute CONDITION ON DISCHARGE: Stable CODE STATUS: Code Status: Full RETIREMENT: SNF STAY <30 DAYS: Yes HOSPICE: HOSPICE: No LTAC: ADMIT TO LTAC: No POST DISCHARGE ORDERS: ACTIVITY ORDERS: Activity as tolerated WEIGHT BEARING STATUS: As tolerated DIET AFTER DISCHARGE: Cardiac CHECKS AFTER DISCHARGE: CHECKS AFTER DISCHARGE: Check blood press - daily, Check your Temp as needed FOLLOW-UP: LAB ORDERS FOR FOLLOW-UP: PT /inr mon and days weekly ,keep inr 2-3. TREATMENT/EQUIPMENT ORDERS: ADAPTIVE EQUIPMENT NEEDED: None, Platform walker RESPIRATORY EQUIPMENT NEEDED: Oxygen Physical Therapy For: Evalulation/Treatment Occupational Therapy For: Evaluation/Treatment DISCHARGE MEDICATIONS: Home Meds Active Scripts Metoclopramide Hcl (METOCLOPRAMIDE HCL) 10 Mg/10 Ml Solution, 5 MG PO QIDACHS for gastroperesis for 30 Days, MISC Prov:NICOLE SMITH MD 07/23/19 Pantoprazole Sodium (PANTOPRAZOLE SODIUM ) 40 Mg Tablet.dr, 40 MG PO DAILYAC for gerd for 30 Days, #30 TAB.SR Prov:NICOLE SMITH MD 07/23/19 Ondansetron Hcl (ZOFRAN) 4 Mg Tablet, 4 MG PO PRN TID PRN for NAUSEA/VOMITING, #15 nausea/vomiting Prov:BESS HEALY MD 12/16/18 Atorvastatin Calcium (ATORVASTATIN CALCIUM) 10 Mg Tablet, 10 MG PO QHS, #30 TAB Prov:DARRYL WATSON APRN 10/23/14 Reported Medications Divalproex Sodium (DIVALPROEX SODIUM) 500 Mg Tablet.dr, 500 MG PO BID, TAB 07/21/19 Fluoxetine Hcl (FLUOXETINE HCL) 40 Mg Capsule, 40 MG PO DAILY for depression, CAP 07/20/19 Potassium Chloride (POTASSIUM CHLORIDE) 20 Meq Tablet.er, 20 MEQ PO DAILY for supplement, TAB.SR 07/20/19 Mirtazapine (MIRTAZAPINE) 30 Mg Tablet, 30 MG PO HS for insomnia, TAB 07/20/19 Topiramate (TOPIRAMATE) 25 Mg Tablet, 25 MG PO BID for seizure, TAB 07/20/19 Temazepam (TEMAZEPAM) 15 Mg Capsule, 15 MG PO HS PRN for INSOMNIA, CAP 07/20/19 Trazodone Hcl (TRAZODONE HCL) 50 Mg Tablet, 50 MG PO HS for insomnia, TAB 07/20/19 Isosorbide Mononitrate (ISOSORBIDE MONONITRATE ER) 30 Mg Tab.er.24h, 1 TAB PO DAILY, #30 TAB 5 Refills 05/04/18 Warfarin Sodium (WARFARIN SODIUM) 5 Mg Tablet, 1 TAB PO DAILY, #90 TAB 1 Refill 05/04/18 Furosemide (FUROSEMIDE) 40 Mg Tablet, 1 TAB PO DAILY for diuretic, #30 TAB 5 Refills 10/27/17 Olanzapine (ZYPREXA) 15 Mg Tablet, 1 TAB PO QHS, #30 TAB 02/20/17 Pregabalin (LYRICA) 50 Mg Capsule, 1 CAP PO BID, #60 CAP 02/20/17 Lisinopril (LISINOPRIL) 20 Mg Tablet, 1 TAB PO DAILY, #30 TAB 5 Refills 02/20/17 Benztropine Mesylate (BENZTROPINE MESYLATE) 1 Mg Tablet, 1 TAB PO BID, #60 TAB 1 Refill 04/14/15 NICOLE SMITH MD Jul 23, 2019 11:07
[2019-07-23 11:25] VITALS: BP 125/63
[2019-07-23 13:14] LABS: PROTHROMBIN TIME PATIENT 20.5 SEC (11.7-14.0)
[2019-07-23 15:00] VITALS: BP 134/74
[2019-07-23] MEDS: WARFARIN 5 MG TABLET. PO SCH (16:46)
[2019-07-23] MEDS ORDERED: WARFARIN 2.5 MG TABLET. PO ONE (18:45)
[2019-07-23 19:00] VITALS: BP 144/68
[2019-07-23] MEDS: ATORVASTATIN CALCIUM 10 MG TABLET. PO SCH (21:42)
[2019-07-23] MEDS: traZODone 50 MG TABLET. PO SCH (21:42)
[2019-07-23] MEDS: MIRTAZAPINE 15 MG TABLET PO SCH (21:43)
[2019-07-23] MEDS: OLANZapine 5 MG TABLET PO SCH (21:43)
[2019-07-23 23:00] VITALS: BP 172/74
[2019-07-24 03:00] VITALS: BP 149/68
[2019-07-24 07:25] VITALS: BP 153/65
[2019-07-24 07:50] LABS: PROTHROMBIN TIME PATIENT 23.6 SEC (11.7-14.0)
[2019-07-24] MEDS: PANTOPRAZOLE 40 MG TABLET.DR. PO SCH (08:27)
[2019-07-24] MEDS: POTASSIUM CHLORIDE 10 MEQ TABLET.ER. PO SCH (08:27)
[2019-07-24] MEDS: METOCLOPRAMIDE ORAL SOLN 10 MG/10 ML SOLUTION. PO SCH ×2 (08:27→12:35)
[2019-07-24] MEDS: DIVALPROEX DELAYED RELEASE 500 MG TABLET.DR. PO SCH (08:27)
[2019-07-24] MEDS: BENZTROPINE MESYLATE 1 MG TABLET. PO SCH (08:27)
[2019-07-24] MEDS: LISINOPRIL 20 MG TABLET PO SCH (08:28)
[2019-07-24] MEDS: PREGABALIN 50 MG CAPSULE PO SCH (08:29)
[2019-07-24] MEDS: TOPIRAMATE 25 MG TABLET. PO SCH (08:29)
[2019-07-24] MEDS: ISOSORBIDE MONONITRATE ER 30 MG TAB.ER.24H PO SCH (08:29)
[2019-07-24] MEDS: FUROSEMIDE 40 MG TABLET. PO SCH (08:29)
[2019-07-24] MEDS: FLUoxetine HCL 20 MG CAPSULE PO SCH (08:30)
--- NOTE | 2019-07-24 09:51 | PDOC ---
PROGRESS NOTES Subjective Subjective feels better today Objective Objective Vital Signs Date Time Temp Pulse Resp B/P (MAP) Pulse Ox O2 Delivery O2 Flow Rate FiO2 07/24/19 08:29 60 07/24/19 07:25 97.9 20 153/65 (94) 96 Room Air 97.9 07/23/19 08:00 2.0 Intake and Output 07/24/19 07:00 Intake Total 750 ml Output Total 900 ml Balance -150 ml Intake Oral 750 ml Output Urine Total 900 ml Physical Exam Abdomen: Soft Heart: Regular rate (SR), Normal S1, Normal S2, Other (3/6 systolic murmur to GREGORIO borde with audible click) Extremities: No cyanosis, No edema General: Alert, Oriented X3, Cooperative, No acute distress HEENT: Atraumatic, Mucous membr. moist/pink Lungs: Clear to auscultation, Normal air movement MUSCULOSKELETAL: Osteoarthritic changes both hands Neuro: Normal speech, Sensation intact Psych/Mental Status: Mental status NL, Mood NL Skin: No breakdown, No significant lesion Diagnosis Problem List Problems Medical Problems: (1) Vomiting Status: Acute Assessment Assessment Problems Medical Problems: (1) Vomiting Status: Acute FINAL IMPRESSION: 1. Chest pain, cardiac evaluation, has a known history of cardiac stents, mechanical aortic valve as well as pacemaker. 2. Abdominal pain, had a history of ischemic colitis in the past, possible recurrence. 3. History of chronic obstructive pulmonary disease and asthma. 4. Anxiety and depression. 5. Gastroesophageal reflux disease. 6. Schizophrenia and bipolar. PLAN: d/c to SNU/Home with home health today cardiac enzymes neg,stress test as out pt ekg no ischemia seen by GI, started on protonix+reglan inr 2.1, therapeutic range inc coumadin dose 5mg, Plan Plan of Care Problems Medical Problems: (1) Vomiting Status: Acute Comment Review of Relevant I have reviewed the following items yonathan (where applicable) has been applied. Labs Laboratory Tests Test 07/23/19 12:48 07/24/19 06:25 Prothrombin Time 20.5 SEC (11.7-14.0) 23.6 SEC (11.7-14.0) Prothromb Time International Ratio 1.8 (0.8-1.1) 2.1 (0.8-1.1) Microbiology 07/20/19 Urine Culture - Final, Complete 07/20/19 Urine Culture Result 1 (JOYCE) - Final, Complete Medications Current Medications Enoxaparin Sodium (Lovenox 80mg Syringe) 80 mg 1X ONCE SQ ; Start 07/23/19 at 18:45; Stop 07/23/19 at 18:46; Status Cancel Warfarin Sodium (Coumadin) 2.5 mg 1X ONCE PO Last administered on 07/23/19at 21:44; Start 07/23/19 at 18:45; Stop 07/23/19 at 18:54; Status DC Vitals/I & O Vital Sign - Last 24 Hours 07/23/19 07/23/19 07/23/19 07/23/19 11:25 15:00 19:00 20:20 Temp 98.0 98.0 98.0 98.0 Pulse 70 70 67 Resp 20 20 16 B/P (MAP) 125/63 (83) 134/74 (94) 144/68 (93) Pulse Ox 94 94 94 O2 Delivery Room Air Room Air Room Air Room Air 07/23/19 07/24/19 07/24/19 07/24/19 23:00 03:00 07:25 08:28 Temp 97.9 98.8 97.9 97.9 98.8 97.9 Pulse 77 65 61 60 Resp 20 20 20 B/P (MAP) 172/74 (106) 149/68 (95) 153/65 (94) Pulse Ox 96 95 96 O2 Delivery Room Air Room Air Room Air 07/24/19 08:29 Pulse 60 Intake and Output 07/23/19 07/23/19 07/24/19 15:00 23:00 07:00 Intake Total 250 ml 300 ml 200 ml Output Total 300 ml 100 ml 500 ml Balance -50 ml 200 ml -300 ml NICOLE SMITH MD Jul 24, 2019 09:51
--- NOTE | 2019-07-24 09:54 | SNU/HH DC ---
DISCHARGE WITH HOME HEALTH DISCHARGE INFORMATION: Discharge Date: Jul 24, 2019 Final Diagnosis: Problems Medical Problems: (1) Vomiting Status: Acute Condition on Discharge: Stable CODE STATUS: Code Status: Full HOME HEALTH: Face to Face: I certify this patient is under my care and that I, or a nurse practitioner or physician's doctor assistant working with me, had a face to face encounter that meets the physician face to face encounter requirements with this patient on []. Medical Complications: Other (lashon) RN For Eval/Treatment: Yes Physical Therapy For: Evalulation/Treatment Occupational Therapy For: Evaluation/Treatment Pt Meets Homebound Status: Poor coordination w/ amb. POST DISCHARGE ORDERS: Activity Instructions for Disc: Activity as tolerated Weight Bearing Status after Di: As tolerated DIET AFTER DISCHARGE: Cardiac CHECKS AFTER DISCHARGE: Checks after discharge: Check blood press - daily, Check your Temp as needed FOLLOW-UP: DC TO SNF LABS: PT /inr mon and th days weekly ,keep inr 2-3. TREATMENT/EQUIPMENT ORDERS: Adaptive Equipment Issued: None, Platform walker Discharge Respiratory Equipmen: Oxygen CERTIFICATION STATEMENT: Certification Statement: Certification Statement: Based on the above finding, I certify that this patient is confined to the home and needs intermittent group home care, physical therapy and/or speech therapy, or continues to need occupational therapy.~ This patient is under my care, and I have initiated the establishment of the plan of care.~ This patient will be followed by myself or a community physician who will periodically review the plan of care. Home Meds Active Scripts Metoclopramide Hcl (METOCLOPRAMIDE HCL) 10 Mg/10 Ml Solution, 5 MG PO QIDACHS for gastroperesis for 30 Days, MISC Prov:NICOLE SMITH MD 07/23/19 Pantoprazole Sodium (PANTOPRAZOLE SODIUM ) 40 Mg Tablet.dr, 40 MG PO DAILYAC for gerd for 30 Days, #30 TAB.SR Prov:NICOLE SMITH MD 07/23/19 Ondansetron Hcl (ZOFRAN) 4 Mg Tablet, 4 MG PO PRN TID PRN for NAUSEA/VOMITING, #15 nausea/vomiting Prov:BESS HEALY MD 12/16/18 Atorvastatin Calcium (ATORVASTATIN CALCIUM) 10 Mg Tablet, 10 MG PO QHS, #30 TAB Prov:DARRYL WATSON APRN 10/23/14 Reported Medications Divalproex Sodium (DIVALPROEX SODIUM) 500 Mg Tablet.dr, 500 MG PO BID, TAB 07/21/19 Fluoxetine Hcl (FLUOXETINE HCL) 40 Mg Capsule, 40 MG PO DAILY for depression, CAP 07/20/19 Potassium Chloride (POTASSIUM CHLORIDE) 20 Meq Tablet.er, 20 MEQ PO DAILY for supplement, TAB.SR 07/20/19 Mirtazapine (MIRTAZAPINE) 30 Mg Tablet, 30 MG PO HS for insomnia, TAB 07/20/19 Topiramate (TOPIRAMATE) 25 Mg Tablet, 25 MG PO BID for seizure, TAB 07/20/19 Temazepam (TEMAZEPAM) 15 Mg Capsule, 15 MG PO HS PRN for INSOMNIA, CAP 07/20/19 Trazodone Hcl (TRAZODONE HCL) 50 Mg Tablet, 50 MG PO HS for insomnia, TAB 07/20/19 Isosorbide Mononitrate (ISOSORBIDE MONONITRATE ER) 30 Mg Tab.er.24h, 1 TAB PO DAILY, #30 TAB 5 Refills 05/04/18 Warfarin Sodium (WARFARIN SODIUM) 5 Mg Tablet, 1 TAB PO DAILY, #90 TAB 1 Refill 05/04/18 Furosemide (FUROSEMIDE) 40 Mg Tablet, 1 TAB PO DAILY for diuretic, #30 TAB 5 Refills 10/27/17 Olanzapine (ZYPREXA) 15 Mg Tablet, 1 TAB PO QHS, #30 TAB 02/20/17 Pregabalin (LYRICA) 50 Mg Capsule, 1 CAP PO BID, #60 CAP 02/20/17 Lisinopril (LISINOPRIL) 20 Mg Tablet, 1 TAB PO DAILY, #30 TAB 5 Refills 02/20/17 Benztropine Mesylate (BENZTROPINE MESYLATE) 1 Mg Tablet, 1 TAB PO BID, #60 TAB 1 Refill 04/14/15 NICOLE SMITH MD Jul 24, 2019 09:54
--- NOTE | 2019-07-24 10:25 | NUR ---
SS following up with discharge planning. PT now recommending home healthcare at discharge. SS met with pt to discuss discharge planning and home healthcare options. Pt agreeable to home with home healthcare and stated that she was previously on services with [facility], ; fax [phone]. Pt reported that her spouse can come transport her to home. Discharge order received for home healthcare. SS phoned and faxed discharge orders and referral to [facility]. Pt's RN notified.
[2019-07-24 11:00] VITALS: BP 125/61
--- NOTE | 2019-07-24 11:10 | PDOC ---
Subjective: Subjective: Neck hurts. Eating okay. Denies abd pain. Objective: Vital Signs: Vital Signs Date Time Temp Pulse Resp B/P (MAP) Pulse Ox O2 Delivery O2 Flow Rate FiO2 07/24/19 08:29 60 07/24/19 08:10 Room Air 07/24/19 07:25 97.9 20 153/65 (94) 96 97.9 07/23/19 08:00 2.0 Labs: Laboratory Tests Test 07/23/19 12:48 07/24/19 06:25 Prothrombin Time 20.5 SEC 23.6 SEC Prothromb Time International Ratio 1.8 2.1 PE: GEN: sleeping hunched over in bed LUNGS: CTAB HEART: RRR ABD: round, non-tender NEURO/PSYCH: A & O 3 A/P: GERD, gastroparesis, suspected non-compliance -- DC per primary - nurse says plans to discharge w/ Protonix and Reglan. Follow-up w/ cardiology as planned. ANANT OLIVAREZ Jul 24, 2019 11:10
--- NOTE | 2019-07-24 13:58 | NUR ---
Discharge: Teaching verbal and written. Reviewed medications, follow up, GERD, Nausea,vomiting, ect. Patient verbalized understanding. IV removed without complications. 2 written prescriptions given to patient. All belongings with patient. Patient ambulated to the front door accompanied by .
--- NOTE | 2019-07-25 16:21 | PDOC ---
Provider Note Provider Note Discharge summary dictated.#[id number]. NICOLE SMITH MD Jul 25, 2019 16:21
--- NOTE | 2019-07-25 17:32 | DS ---
DATE OF DISCHARGE: 07/24/2019 REASON FOR ADMISSION TO THE HOSPITAL: Abdominal pain, chest pain. CONSULTATION: 1. Dr. Rasmussen. 2. Dr. Baig. PROCEDURES DONE: CT head, CT of the abdomen and pelvis. COMPLICATIONS NOTED: None. HOSPITAL COURSE: The patient is a 58-year-old female, who complains of abdominal pain, also chest pain, nausea, vomiting, and was admitted to the hospital, seen by Cardiology. The patient has a history of cardiac stents, cardiac enzymes, EKG was negative, and scheduled outpatient stress test. The patient had a gastric emptying study last year shows delayed gastric emptying, seen by GI. Last EGD was last year, colonoscopy 3-4 years ago and the patient was put on Protonix as well as Reglan, and the patient did well and the patient was tolerating diet and she was discharged home. FINAL DIAGNOSES: 1. Abdominal pain secondary to gastroparesis. 2. Chest pain secondary to gastroesophageal reflux disease. 3. Coronary artery disease, previous cardiac stents. The patient had a stress test last year, negative for ischemia. 4. History of mechanical aortic valve, on Coumadin. INR is therapeutic. 5. Multiple comorbid conditions. DISPOSITION: Home. See [facility] for medications. The patient is scheduled for a stress test outpatient and the patient had a colonoscopy 3-4 years ago. NICOLE SMITH MD DR: ISAMAR/cori JOB#: [id number] / [id number] RUBIO Birch
== END 2019-07-24 14:15 | disposition home health service (06) | DRG 392 ==
LOC: ER 18:11 → 2 SOUTH 19:28 → CVICU 07-21 15:32 → 2 SOUTH 07-21 15:42
PROVIDERS: ADMIT Internal Medicine; ATTEND Internal Medicine
DX: K21.9 Gastro-esophageal reflux disease without esophagitis (principal); K31.84 Gastroparesis; Z95.0 Presence of cardiac pacemaker; I10 Essential (primary) hypertension; E78.5 Hyperlipidemia, unspecified; F20.9 Schizophrenia, unspecified; F31.9 Bipolar disorder, unspecified; F41.9 Anxiety disorder, unspecified; G47.419 Narcolepsy without cataplexy; I25.10 Atherosclerotic heart disease of native coronary artery without angina pectoris; I25.2 Old myocardial infarction; K43.9 Ventral hernia without obstruction or gangrene; K57.90 Diverticulosis of intestine, part unspecified, without perforation or abscess without bleeding; Z79.01 Long term (current) use of anticoagulants; Z83.3 Family history of diabetes mellitus; Z86.73 Personal history of transient ischemic attack (TIA), and cerebral infarction without residual deficits; Z87.19 Personal history of other diseases of the digestive system; Z90.49 Acquired absence of other specified parts of digestive tract; Z90.710 Acquired absence of both cervix and uterus; Z95.2 Presence of prosthetic heart valve; Z95.5 Presence of coronary angioplasty implant and graft
CPT/HCPCS: 36415; 70450; 71045; 74176; 80053; 81001; 83690; 83880; 84484; 85025; 85610; 87086; 93005; 96361; 96374; 96375; 96376; J1650; J2405; J3010; J3490; J7030; J8597; 97530; 97535; 99285-25; G0378

== ENCOUNTER 2019-10-06 20:53 | Inpatient (IN) | payer OTHER, MEDICAID ==
[~2019-10-06] VITALS: Ht 154.9 cm; Wt 94.4 kg
[~2019-10-06 20:53] MED LIST changes: -CETI10TA22 PO; +CETI10TA24 PO; +FLUO20CA19 PO; -FLUO20CA8 PO; +FLUO40CA2 PO; +METO10SO PO; +MIRT30TA3 PO; -POTA20TA82 PO; +TEMA15CA PO
[2019-10-06] MEDS ORDERED: ONDANSETRON PF 4 MG/2 ML VIAL. IVP ONE ×2 (21:15→22:15)
[2019-10-06] MEDS: MORPHINE SULFATE 4 MG/ML VIAL. IV/SQ PRN ×2 (21:35→23:08)
[2019-10-06 22:03] LABS: BASO % 1 % (0-3); EOS # 0.1 x10^3/uL (0.0-0.7); EOS % 1 % (0-3); HEMATOCRIT 41.1 % (36.0-47.0); HEMOGLOBIN 14.1 g/dL (12.0-15.5); LYMPH # 2.2 x10^3/uL (1.0-4.8); LYMPH % 27 % (24-48); MEAN CORPUSCULAR HEMOGLOBIN 29 pg (25-35); MEAN CORPUSCULAR HGB CONC 34 g/dL (31-37); MEAN CORPUSCULAR VOLUME 86 fL (79-100); MONO # 0.7 x10^3/uL (0.0-1.1); MONO % 9 % (0-9); NEUT # 5.1 x10^3/uL (1.8-7.7); NEUT % 62 % (31-73); PLATELET COUNT 157 x10^3/uL (140-400); RED BLOOD COUNT 4.81 x10^6/uL (3.50-5.40); WHITE BLOOD COUNT 8.1 x10^3/uL (4.0-11.0)
[2019-10-06 22:10] LABS: CREATININE 0.8 mg/dL (0.6-1.0); GFR 73.4; POTASSIUM 3.2 mmol/L (3.5-5.1)
--- NOTE | 2019-10-06 22:12 | RAD ---
PORTABLE CHEST 1V Clinical History: Chest pain Technique: AP view of the chest was obtained at 10/06/2019 9:09 PM. Comparison: July 20, 2019. Findings: The cardiomediastinal silhouette is normal. The pulmonary vasculature is normal. The lungs and pleural margins are clear. The median sternotomy wires and left-sided chest tube are again seen unchanged. Impression: No evidence of an acute cardiopulmonary process. Electronically signed by: Flakito Mustafa III, MD (10/06/2019 10:08 PM) [facility]
[2019-10-06 22:16] LABS: ALBUMIN 3.3 g/dL (3.4-5.0); ALBUMIN/GLOBULIN RATIO 1.2 (1.0-1.7); MAGNESIUM 1.9 mg/dL (1.8-2.4); TOTAL BILIRUBIN 0.1 mg/dL (0.2-1.0); TOTAL PROTEIN 6.1 g/dL (6.4-8.2)
[2019-10-06 22:19] LABS: BILIRUBIN,URINE NEGATIVE (NEG); CLARITY,URINE CLEAR; COLOR,URINE YELLOW; NITRITE,URINE NEGATIVE (NEG); PH,URINE 6.5; PROTEIN,URINE NEGATIVE (NEG-TRACE); UROBILINOGEN,URINE 0.2 mg/dL (0.2 mg/dL)
[2019-10-06 22:23] LABS: SQUAMOUS EPITHELIAL CELL,UR FEW /LPF
[2019-10-06 22:24] LABS: AMORPHOUS SEDIMENT,UR PRESENT /HPF; BACTERIA,URINE FEW /HPF (0-FEW); RBC,URINE 0 /HPF (0-2); WBC,URINE OCC /HPF (0-4)
--- NOTE | 2019-10-06 22:35 | PHYS DOC ---
Past Medical History Past Medical History: A-Fib, Anxiety, Bipolar, CVA, Hypertension, DC, Schizophrenia, Other Additional Past Medical Histor: HALLUCINATIONS, AORTIC VALVE DISORDERS, mi 1996, kidney problems Past Surgical History: Cholecystectomy, Pacemaker, Other Additional Past Surgical Histo: HERNIA REPAIR, AORTIC VALVE REPLACEMENT; with defibrilator Alcohol Use: Sober Drug Use: None Adult General Chief Complaint Chief Complaint: CHEST PAIN HPI HPI Patient is a 59-year-old female who presents with complaint of left-sided chest pain that started about 2 hours ago. Patient states that it radiates into her left shoulder and down the back of her left arm. She rates pain at a 9 out of 10. She states the pain is worsened with movement and exertion. She reports nausea but is had no vomiting. Patient states that she took 2 of her nitroglycerin which had improved a little bit temporarily. She describes pain as sharp in nature and states that it feels like her previous heart attacks felt.[] Review of Systems Review of Systems Constitutional: Denies fever or chills [] Respiratory: Denies cough or shortness of breath [] Cardiovascular: No additional information not addressed in HPI [] GI: Denies abdominal pain, vomiting or diarrhea [] Integument: Denies rash or skin lesions [] Neurologic: Denies headache, focal weakness or sensory changes [] All other systems were reviewed and found to be within normal limits, except as documented in this note. Current Medications Current Medications Current Medications Medications (Trade) Dose Ordered Sig/Galilea Start Time Stop Time Status Last Admin Dose Admin Metoclopramide HCl (Reglan Vial) 10 mg 1X ONCE 10/06/19 22:45 10/06/19 22:46 DC 10/06/19 22:43 10 MG Morphine Sulfate (Morphine Sulfate) 4 mg PRN Q2HR PRN 10/06/19 22:45 10/07/19 22:44 Ondansetron HCl (Zofran) 4 mg PRN Q8HRS PRN 10/06/19 22:45 10/07/19 22:44 Allergies Allergies Allergies Coded Allergies Type Severity Reaction Last Updated Verified Sulfa (Sulfonamide Antibiotics) Allergy Severe rash, tongue swelling 04/15/15 Yes Iodinated Contrast Media Allergy Intermediate rash 04/15/15 Yes Penicillins Allergy Intermediate Hives 04/15/15 Yes aspirin Allergy Intermediate Hives 04/15/15 Yes codeine Allergy Intermediate Hives; SEE COMMENT 06/08/15 Yes diphenhydramine HCl Allergy Intermediate rash 12/19/13 Yes latex Allergy Intermediate Rash 12/18/13 Yes Physical Exam Physical Exam Constitutional: Well developed, well nourished, no acute distress, non-toxic appearance. [] HENT: Normocephalic, atraumatic, bilateral external ears normal, oropharynx moist, no oral exudates, nose normal. [] Eyes: PERRLA, EOMI, conjunctiva normal, no discharge. [] Neck: Normal range of motion, no tenderness, supple, no stridor. [] Cardiovascular: Regular rate and rhythm[] Lungs & Thorax: Bilateral breath sounds clear to auscultation [] Abdomen: Bowel sounds normal, soft, no tenderness. [] Skin: Warm, dry, no erythema, no rash. [] Extremities: No tenderness, no cyanosis, no clubbing, ROM intact. [] Neurologic: Alert and oriented X 3, no focal deficits noted. [] Current Patient Data Vital Signs Vital Signs Date Time Temp Pulse Resp B/P (MAP) Pulse Ox O2 Delivery O2 Flow Rate FiO2 10/06/19 22:53 61 20 119/59 (79) 94 Room Air 10/06/19 20:58 98.3 98.3 Lab Values Laboratory Tests Test 10/06/19 21:50 10/06/19 22:13 White Blood Count 8.1 x10^3/uL (4.0-11.0) Red Blood Count 4.81 x10^6/uL (3.50-5.40) Hemoglobin 14.1 g/dL (12.0-15.5) Hematocrit 41.1 % (36.0-47.0) Mean Corpuscular Volume 86 fL (79-100) Mean Corpuscular Hemoglobin 29 pg (25-35) Mean Corpuscular Hemoglobin Concent 34 g/dL (31-37) Red Cell Distribution Width 14.0 % (11.5-14.5) Platelet Count 157 x10^3/uL (140-400) Neutrophils (%) (Auto) 62 % (31-73) Lymphocytes (%) (Auto) 27 % (24-48) Monocytes (%) (Auto) 9 % (0-9) Eosinophils (%) (Auto) 1 % (0-3) Basophils (%) (Auto) 1 % (0-3) Neutrophils # (Auto) 5.1 x10^3/uL (1.8-7.7) Lymphocytes # (Auto) 2.2 x10^3/uL (1.0-4.8) Monocytes # (Auto) 0.7 x10^3/uL (0.0-1.1) Eosinophils # (Auto) 0.1 x10^3/uL (0.0-0.7) Basophils # (Auto) 0.0 x10^3/uL (0.0-0.2) Prothrombin Time 22.9 SEC (11.7-14.0) H Prothrombin Time INR 2.1 (0.8-1.1) H Sodium Level 143 mmol/L (136-145) Potassium Level 3.2 mmol/L (3.5-5.1) L Chloride Level 104 mmol/L (98-107) Carbon Dioxide Level 31 mmol/L (21-32) Anion Gap 8 (6-14) Blood Urea Nitrogen 23 mg/dL (7-20) H Creatinine 0.8 mg/dL (0.6-1.0) Estimated GFR (Cockcroft-Gault) 73.4 BUN/Creatinine Ratio 29 (6-20) H Glucose Level 98 mg/dL (70-99) Calcium Level 9.0 mg/dL (8.5-10.1) Magnesium Level 1.9 mg/dL (1.8-2.4) Total Bilirubin 0.1 mg/dL (0.2-1.0) L Aspartate Amino Transferase (AST) 16 U/L (15-37) Alanine Aminotransferase (ALT) 14 U/L (14-59) Alkaline Phosphatase 79 U/L (46-116) Troponin I Quantitative < 0.017 ng/mL (0.000-0.055) [id number] Natriuretic Peptide 102 pg/mL (0-124) Total Protein 6.1 g/dL (6.4-8.2) L Albumin 3.3 g/dL (3.4-5.0) L Albumin/Globulin Ratio 1.2 (1.0-1.7) Urine Collection Type Unknown Urine Color Yellow Urine Clarity Clear Urine pH 6.5 Urine Specific [place] 1.020 Urine Protein Negative mg/dL (NEG-TRACE) Urine Glucose (UA) Negative mg/dL (NEG) Urine Ketones (Stick) Negative mg/dL (NEG) Urine Blood Negative (NEG) Urine Nitrite Negative (NEG) Urine Bilirubin Negative (NEG) Urine Urobilinogen Dipstick 0.2 mg/dL (0.2 mg/dL) Urine Leukocyte Esterase Negative (NEG) Urine RBC 0 /HPF (0-2) Urine WBC Occ /HPF (0-4) Urine Squamous Epithelial Cells Few /LPF Urine Amorphous Sediment Present /HPF Urine Bacteria Few /HPF (0-FEW) Urine Mucus Slight /LPF Laboratory Tests 10/06/19 21:50 Laboratory Tests 10/06/19 21:50 EKG EKG [] Radiology/Procedures Radiology/Procedures [] Course & Med Decision Making Course & Med Decision Making Pertinent Labs and Imaging studies reviewed. (See chart for details) [] Dragon Disclaimer Dragon Disclaimer This electronic medical record was generated, in whole or in part, using a voice recognition dictation system. Departure Departure Impression: Primary Impression: Chest pain Disposition: ADMITTED INPATIENT Admitting Physician: Elizabeth Hudson Condition: IMPROVED Referrals: RUBIO CASTELLANOS (PCP) Problem Qualifiers Primary Impression: Chest pain Chest pain type: unspecified Qualified Codes: R07.9 - Chest pain, unspecified NEELA BRAVO Jr. DO Oct 06, 2019 22:35
[2019-10-06] MEDS ORDERED: METOCLOPRAMIDE HCL 10 MG/2 ML VIAL. IVP ONE (22:45)
[2019-10-06] MEDS ORDERED: ONDANSETRON PF 4 MG/2 ML VIAL. IV PRN (22:45)
[2019-10-06 22:54] LABS: PROTHROMBIN TIME PATIENT 22.9 SEC (11.7-14.0)
[2019-10-06 23:15] VITALS: BP 108/58
[2019-10-07 03:00] VITALS: BP 86/54
[2019-10-07 07:00] VITALS: BP 109/67
[2019-10-07] MEDS: MORPHINE SULFATE 4 MG/ML VIAL. IV PRN ×2 (08:47→17:24)
[2019-10-07 10:40] VITALS: BP 124/53
[2019-10-07] MEDS ORDERED: TEMAZEPAM 15 MG CAPSULE PO PRN (11:45)
[2019-10-07] MEDS ORDERED: ONDANSETRON ODT 4 MG TAB.RAPDIS. PO PRN (12:00)
--- NOTE | 2019-10-07 12:06 | PDOC ---
PROGRESS NOTES Subjective Subjective Pt seen.H&P dictated.#[id number]. Objective Objective Vital Signs Date Time Temp Pulse Resp B/P (MAP) Pulse Ox O2 Delivery O2 Flow Rate FiO2 10/07/19 10:40 97.9 60 18 124/53 (76) 92 Room Air 97.9 Intake and Output 10/07/19 07:00 Output Total 450 ml Balance -450 ml Output Urine Total 450 ml Physical Exam MUSCULOSKELETAL: Osteoarthritic changes both hands Comment Review of Relevant I have reviewed the following items yonathan (where applicable) has been applied. Labs Laboratory Tests Test 10/06/19 21:50 10/06/19 22:13 10/07/19 01:40 10/07/19 04:30 White Blood Count 8.1 x10^3/uL (4.0-11.0) Red Blood Count 4.81 x10^6/uL (3.50-5.40) Hemoglobin 14.1 g/dL (12.0-15.5) Hematocrit 41.1 % (36.0-47.0) Mean Corpuscular Volume 86 fL (79-100) Mean Corpuscular Hemoglobin 29 pg (25-35) Mean Corpuscular Hemoglobin Concent 34 g/dL (31-37) Red Cell Distribution Width 14.0 % (11.5-14.5) Platelet Count 157 x10^3/uL (140-400) Neutrophils (%) (Auto) 62 % (31-73) Lymphocytes (%) (Auto) 27 % (24-48) Monocytes (%) (Auto) 9 % (0-9) Eosinophils (%) (Auto) 1 % (0-3) Basophils (%) (Auto) 1 % (0-3) Neutrophils # (Auto) 5.1 x10^3/uL (1.8-7.7) Lymphocytes # (Auto) 2.2 x10^3/uL (1.0-4.8) Monocytes # (Auto) 0.7 x10^3/uL (0.0-1.1) Eosinophils # (Auto) 0.1 x10^3/uL (0.0-0.7) Basophils # (Auto) 0.0 x10^3/uL (0.0-0.2) Prothrombin Time 22.9 SEC (11.7-14.0) Prothromb Time International Ratio 2.1 (0.8-1.1) Sodium Level 143 mmol/L (136-145) Potassium Level 3.2 mmol/L (3.5-5.1) Chloride Level 104 mmol/L (98-107) Carbon Dioxide Level 31 mmol/L (21-32) Anion Gap 8 (6-14) Blood Urea Nitrogen 23 mg/dL (7-20) Creatinine 0.8 mg/dL (0.6-1.0) Estimated GFR (Cockcroft-Gault) 73.4 BUN/Creatinine Ratio 29 (6-20) Glucose Level 98 mg/dL (70-99) Calcium Level 9.0 mg/dL (8.5-10.1) Magnesium Level 1.9 mg/dL (1.8-2.4) Total Bilirubin 0.1 mg/dL (0.2-1.0) Aspartate Amino Transf (AST/SGOT) 16 U/L (15-37) Alanine Aminotransferase (ALT/SGPT) 14 U/L (14-59) Alkaline Phosphatase 79 U/L (46-116) Troponin I Quantitative < 0.017 ng/mL (0.000-0.055) < 0.017 ng/mL (0.000-0.055) < 0.017 ng/mL (0.000-0.055) [id number]-Type Natriuretic Peptide 102 pg/mL (0-124) Total Protein 6.1 g/dL (6.4-8.2) Albumin 3.3 g/dL (3.4-5.0) Albumin/Globulin Ratio 1.2 (1.0-1.7) Urine Collection Type Unknown Urine Color Yellow Urine Clarity Clear Urine pH 6.5 Urine Specific [place] 1.020 Urine Protein Negative mg/dL (NEG-TRACE) Urine Glucose (UA) Negative mg/dL (NEG) Urine Ketones (Stick) Negative mg/dL (NEG) Urine Blood Negative (NEG) Urine Nitrite Negative (NEG) Urine Bilirubin Negative (NEG) Urine Urobilinogen Dipstick 0.2 mg/dL (0.2 mg/dL) Urine Leukocyte Esterase Negative (NEG) Urine RBC 0 /HPF (0-2) Urine WBC Occ /HPF (0-4) Urine Squamous Epithelial Cells Few /LPF Urine Amorphous Sediment Present /HPF Urine Bacteria Few /HPF (0-FEW) Urine Mucus Slight /LPF Medications Current Medications Atorvastatin Calcium (Lipitor) 10 mg QHS PO ; Start 10/07/19 at 21:00 Benztropine Mesylate (Cogentin) 1 mg BID PO ; Start 10/07/19 at 12:00 Divalproex Sodium (Depakote) 500 mg BID PO ; Start 10/07/19 at 12:30 Fluoxetine HCl (PROzac) 40 mg DAILY PO ; Start 10/07/19 at 12:30 Furosemide (Lasix) 40 mg DAILY PO ; Start 10/07/19 at 12:30 Isosorbide Mononitrate (Imdur) 30 mg DAILY PO ; Start 10/07/19 at 12:30 Lisinopril (Prinivil) 20 mg DAILY PO ; Start 10/07/19 at 12:30 Metoclopramide HCl (Reglan Oral Solution) 5 mg QIDACHS PO ; Start 10/07/19 at 16:30 Metoclopramide HCl (Reglan Vial) 10 mg 1X ONCE IVP Last administered on 10/06/19at 22:43; Start 10/06/19 at 22:45; Stop 10/06/19 at 22:46; Status DC Mirtazapine (Remeron) 30 mg QHS PO ; Start 10/07/19 at 21:00 Morphine Sulfate (Morphine Sulfate) 4 mg PRN Q15MIN PRN IV/SQ PAIN GREATER THAN 3/10 Last administered on 10/06/19at 23:08; Start 10/06/19 at 21:15; Stop 10/07/19 at 21:14 Morphine Sulfate (Morphine Sulfate) 4 mg PRN Q2HR PRN IV PAIN Last administered on 10/07/19at 08:47; Start 10/06/19 at 22:45; Stop 10/07/19 at 22:44 Olanzapine (ZyPREXA) 15 mg QHS PO ; Start 10/07/19 at 21:00 Ondansetron HCl (Zofran Odt) 4 mg PRN TID PRN PO NAUSEA/VOMITING; Start 10/07/19 at 12:00 Ondansetron HCl (Zofran) 4 mg 1X ONCE IVP Last administered on 10/06/19at 21:35; Start 10/06/19 at 21:15; Stop 10/06/19 at 21:17; Status DC Ondansetron HCl (Zofran) 4 mg 1X ONCE IVP Last administered on 10/06/19at 22:09; Start 10/06/19 at 22:15; Stop 10/06/19 at 22:16; Status DC Ondansetron HCl (Zofran) 4 mg PRN Q8HRS PRN IV NAUSEA/VOMITING; Start 10/06/19 at 22:45; Stop 10/07/19 at 22:44 Pantoprazole Sodium (Protonix) 40 mg DAILYAC PO ; Start 10/07/19 at 12:30 Potassium Chloride (Klor-Con) 20 meq DAILY PO ; Start 10/07/19 at 12:30 Potassium Chloride (Klor-Con) 40 meq 1X ONCE PO ; Start 10/07/19 at 12:30; Stop 10/07/19 at 12:31 Pregabalin (Lyrica) 50 mg BID PO ; Start 10/07/19 at 12:30 Temazepam (Restoril) 15 mg PRN QHS PRN PO INSOMNIA; Start 10/07/19 at 11:45 Topiramate (Topamax) 25 mg BID PO ; Start 10/07/19 at 12:30 Trazodone HCl (Desyrel) 50 mg HS PO ; Start 10/07/19 at 21:00 Warfarin Sodium (Coumadin Per Physician) 1 each PRN DAILY PRN MC SEE COMMENTS; Start 10/07/19 at 12:00 Warfarin Sodium (Coumadin) 5 mg DAILY16 PO ; Start 10/07/19 at 16:00 Vitals/I & O Vital Sign - Last 24 Hours 10/06/19 10/06/19 10/06/19 10/06/19 20:58 21:32 21:35 21:53 Temp 98.3 98.3 Pulse 82 60 63 Resp 18 18 18 21 B/P (MAP) 156/89 (111) 149/72 (97) 138/69 (92) Pulse Ox 97 93 96 92 O2 Delivery Room Air Room Air Room Air Room Air 10/06/19 10/06/19 10/06/19 10/06/19 22:08 22:23 22:38 22:53 Pulse 73 60 63 61 Resp 19 21 18 20 B/P (MAP) 138/72 (94) 121/56 (77) 124/64 (84) 119/59 (79) Pulse Ox 91 93 92 94 O2 Delivery Room Air Room Air Room Air Room Air 10/06/19 10/06/19 10/06/19 10/06/19 23:08 23:08 23:15 23:30 Temp 98.8 98.8 Pulse 60 65 Resp 19 19 22 B/P (MAP) 113/55 (74) 108/58 (75) Pulse Ox 92 92 93 O2 Delivery Room Air Room Air Room Air Room Air 10/06/19 10/07/19 10/07/19 10/07/19 23:38 03:00 07:00 08:10 Temp 98.8 97.8 98.8 97.8 Pulse 60 60 B/P (MAP) 86/54 (65) 109/67 (81) Pulse Ox 92 94 93 O2 Delivery Room Air Room Air Room Air Room Air 10/07/19 10/07/19 10/07/19 08:47 09:21 10:40 Temp 97.9 97.9 Pulse 60 Resp 18 B/P (MAP) 124/53 (76) Pulse Ox 93 93 92 O2 Delivery Room Air Room Air Room Air Intake and Output 10/06/19 10/06/19 10/07/19 15:00 23:00 07:00 Output Total 450 ml Balance -450 ml NICOLE SMITH MD Oct 07, 2019 12:06
[2019-10-07] MEDS: PREGABALIN 50 MG CAPSULE PO SCH ×3 (12:16→23:15)
[2019-10-07] MEDS: DIVALPROEX DELAYED RELEASE 500 MG TABLET.DR. PO SCH ×2 (12:16→20:13)
[2019-10-07] MEDS: BENZTROPINE MESYLATE 1 MG TABLET. PO SCH ×2 (12:16→20:13)
[2019-10-07] MEDS: TOPIRAMATE 25 MG TABLET. PO SCH ×2 (12:17→20:13)
[2019-10-07] MEDS: ISOSORBIDE MONONITRATE ER 30 MG TAB.ER.24H PO SCH (12:17)
[2019-10-07] MEDS: PANTOPRAZOLE 40 MG TABLET.DR. PO SCH (12:17)
[2019-10-07] MEDS: FLUoxetine HCL 20 MG CAPSULE PO SCH (12:17)
[2019-10-07] MEDS: FUROSEMIDE 40 MG TABLET. PO SCH (12:18)
[2019-10-07] MEDS: LISINOPRIL 20 MG TABLET PO SCH (12:18)
[2019-10-07] MEDS: POTASSIUM CHLORIDE 20 MEQ TABLET.ER. PO SCH (12:20)
[2019-10-07] MEDS ORDERED: POTASSIUM CHLORIDE 20 MEQ TABLET.ER. PO ONE (12:30)
--- NOTE | 2019-10-07 12:37 | HP ---
ADMIT DATE: 10/06/2019 ATTENDING PHYSICIAN: Elizabeth Smith MD PRIMARY CARE PHYSICIAN: Dr. Ravi West. REASON FOR ADMISSION TO THE HOSPITAL: Chest pain. HISTORY OF PRESENT ILLNESS: The patient is a 59-year-old female. She has a history of coronary artery disease, previous cardiac stents. She also has a pacemaker. She has an aortic valve replacement. She is on Coumadin. She was having some chest pains and also epigastric pain, came to the Emergency Room. Cardiac enzymes and EKG were negative, was admitted for further cardiac workup. PAST MEDICAL HISTORY: AFib, anxiety, bipolar, stroke, hypertension, schizophrenia, coronary artery disease. PAST SURGICAL HISTORY: Aortic valve replacement, pacemaker, cardiac stent, gallbladder surgery and hernia repair. ALLERGIES: CONTRAST, PENICILLIN, SULFA, ASPIRIN, CODEINE, BENADRYL, LATEX. MEDICATIONS AT HOME: The patient is on atorvastatin 10 mg daily, benztropine 1 mg twice a day, Depakote 500 mg twice a day, fluoxetine 40 mg daily, Lasix 40 mg daily, isosorbide 30 mg daily, lisinopril 20 mg daily, Reglan p.r.n., mirtazapine 30 mg, Zyprexa 15 mg at bedtime, Zofran 4 mg 3 times daily, Protonix 40 mg daily, potassium 20 mEq daily, Lyrica 50 mg twice a day, temazepam 50 mg at bedtime, topiramate 25 mg twice a day, trazodone 50 mg at bedtime, Coumadin 5 mg daily. PERSONAL HISTORY: Denies smoking, alcohol, drug abuse, secondary to smoke. FAMILY HISTORY: Positive for heart disease, diabetes, strokes. REVIEW OF SYMPTOMS: Has some epigastric pain, pain going to the left side. Has some nausea. Rest of the 14-system was reviewed and negative. PHYSICAL EXAMINATION: GENERAL: The patient is sleeping comfortably, awake now, answering questions appropriately. VITAL SIGNS: Temperature 98, pulse 60, respirations 20, blood pressure 124/64, 92% on room air. HEENT: Head is atraumatic. Left pupil is slightly fixed and dilated from congenital or previously from strokes. Oral cavity: Dentures. NECK: Supple. Thyroid not enlarged. JVD not elevated. CHEST: Symmetrical, scar of heart surgery, has a pacemaker in left chest. CARDIOVASCULAR: S1, S2. LUNGS: Decreased present. LUNGS: Clear to auscultation. ABDOMEN: Soft, slight epigastric tenderness to deep palpation. No rebound. Bowel sounds are present. EXTERNAL GENITALIA: No Siu. EXTREMITIES: No calf tenderness, no edema. Pulses 1+. NEUROLOGIC: Moving all extremities. No focal deficits noted. LABORATORY DATA: Shows a white count of 8, hemoglobin 14, platelets 157. INR 2.1. Electrolytes show sodium 140, potassium 3.2, chloride 104, bicarb 31, BUN 23, creatinine 0.8, glucose 98, magnesium 1.9. LFTs normal. Urine negative. Chest x-ray negative. EKG negative. FINAL IMPRESSION: 1. Chest pain for cardiac evaluation. 2. Known history of coronary artery disease, previous cardiac stents. 3. History of aortic valve replacement, mechanical valve, on Coumadin. INR is 2.1 therapeutic. 4. Hypertension. 5. Hyperlipidemia. 6. Bipolar. 7. Hypokalemia. PLAN: At this time, admit to hospital. Cardiology consulted. Replace potassium. PT, OT and see how she improves in the next 24-48 hours. 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 ELIZABETH SMITH MD DR: ISAMAR/cori JOB#: [id number] / [id number] RAVI Birch
--- NOTE | 2019-10-07 13:23 | PDOC2 ---
CONSULT Date of Consult Date of Consult DATE: 10/07/19 TIME: 13:23 Reason for Consult Reason for Consult: Chest pain Referring Physician Referring Physician: Dr. Hudson Identification/Chief Complaint Chief Complaint Chest pain Source Source: Chart review, Patient History of Present Illness Reason for Visit: 59-year-old female with history of coronary artery disease s/p PCI/stents to RCA in the past, SSS s/p PPM, s/p mechanical AVR presented with retrosternal and epigastric chest pain that she described as stabbing in nature not related to exertion or food intake. She denied any orthopnea/PND, palpitations or syncope. Past Medical History Cardiovascular: AFIB, CAD, CHF, HTN, RI, Hyperlipidemia, Other Pulmonary: Asthma, COPD CENTRAL NERVOUS SYSTEM: CVA, Seizure, Other GI: GERD, Peptic Ulcer disease, Other Heme/Onc: Cancer Hepatobiliary: No pertinent hx Psych: Anxiety, Bipolar, Depression Musculoskeletal: Osteoarthritis Rheumatologic: No pertinent hx Infectious disease: No pertinent hx Renal/: No pertinent hx Endocrine: No pertinent hx Past Surgical History Past Surgical History: Pacemaker, CABG, Hernia Repair, Mastectomy, Hy sterectomy, Other Family History Family History: Diabetes Social History ALCOHOL: none Drugs: None Lives: with Family Current Medications Current Medications Current Medications Morphine Sulfate (Morphine Sulfate) 4 mg PRN Q15MIN PRN IV/SQ PAIN GREATER THAN 3/10 Last administered on 10/06/19at 23:08; Start 10/06/19 at 21:15; Stop 10/07/19 at 21:14 Ondansetron HCl (Zofran) 4 mg 1X ONCE IVP Last administered on 10/06/19at 21:35; Start 10/06/19 at 21:15; Stop 10/06/19 at 21:17; Status DC Ondansetron HCl (Zofran) 4 mg 1X ONCE IVP Last administered on 10/06/19at 22:09; Start 10/06/19 at 22:15; Stop 10/06/19 at 22:16; Status DC Metoclopramide HCl (Reglan Vial) 10 mg 1X ONCE IVP Last administered on 10/06/19at 22:43; Start 10/06/19 at 22:45; Stop 10/06/19 at 22:46; Status DC Ondansetron HCl (Zofran) 4 mg PRN Q8HRS PRN IV NAUSEA/VOMITING; Start 10/06/19 at 22:45; Stop 10/07/19 at 22:44 Morphine Sulfate (Morphine Sulfate) 4 mg PRN Q2HR PRN IV PAIN Last administered on 10/07/19at 08:47; Start 10/06/19 at 22:45; Stop 10/07/19 at 22:44 Atorvastatin Calcium (Lipitor) 10 mg QHS PO ; Start 10/07/19 at 21:00 Benztropine Mesylate (Cogentin) 1 mg BID PO Last administered on 10/07/19 12:16; Start 10/07/19 at 12:00 Divalproex Sodium (Depakote) 500 mg BID PO Last administered on 10/07/19 12:16; Start 10/07/19 at 12:30 Furosemide (Lasix) 40 mg DAILY PO Last administered on 10/07/19 12:18; Start 10/07/19 at 12:30 Isosorbide Mononitrate (Imdur) 30 mg DAILY PO Last administered on 10/07/19 12:17; Start 10/07/19 at 12:30 Lisinopril (Prinivil) 20 mg DAILY PO Last administered on 10/07/19 12:18; Start 10/07/19 at 12:30 Metoclopramide HCl (Reglan Oral Solution) 5 mg QIDACHS PO ; Start 10/07/19 at 16:30 Pantoprazole Sodium (Protonix) 40 mg DAILYAC PO Last administered on 10/07/19at 12:17; Start 10/07/19 at 12:30 Potassium Chloride (Klor-Con) 20 meq DAILY PO ; Start 10/07/19 at 12:30 Pregabalin (Lyrica) 50 mg BID PO Last administered on 10/07/19 12:16; Start 10/07/19 at 12:30 Temazepam (Restoril) 15 mg PRN QHS PRN PO INSOMNIA; Start 10/07/19 at 11:45 Topiramate (Topamax) 25 mg BID PO Last administered on 10/07/19at 12:17; Start 10/07/19 at 12:30 Trazodone HCl (Desyrel) 50 mg HS PO ; Start 10/07/19 at 21:00 Warfarin Sodium (Coumadin) 5 mg DAILY16 PO ; Start 10/07/19 at 16:00 Fluoxetine HCl (PROzac) 40 mg DAILY PO Last administered on 10/07/19at 12:17; Start 10/07/19 at 12:30 Mirtazapine (Remeron) 30 mg QHS PO ; Start 10/07/19 at 21:00 Olanzapine (ZyPREXA) 15 mg QHS PO ; Start 10/07/19 at 21:00 Ondansetron HCl (Zofran Odt) 4 mg PRN TID PRN PO NAUSEA/VOMITING; Start 10/07/19 at 12:00 Potassium Chloride (Klor-Con) 40 meq 1X ONCE PO Last administered on 10/07/19at 12:17; Start 10/07/19 at 12:30; Stop 10/07/19 at 12:31; Status DC Warfarin Sodium (Coumadin Per Physician) 1 each PRN DAILY PRN MC SEE COMMENTS; Start 10/07/19 at 12:00 Active Scripts Active Metoclopramide Hcl 10 Mg/10 Ml Solution 5 Mg PO QIDACHS 30 Days Pantoprazole Sodium (Pantoprazole Sodium) 40 Mg Tablet.dr 40 Mg PO DAILYAC 30 Days Zofran (Ondansetron Hcl) 4 Mg Tablet 4 Mg PO PRN TID PRN nausea/vomiting Atorvastatin Calcium 10 Mg Tablet 10 Mg PO QHS Reported Divalproex Sodium 500 Mg Tablet.dr 500 Mg PO BID Fluoxetine Hcl 40 Mg Capsule 40 Mg PO DAILY Potassium Chloride 20 Meq Tablet.er 20 Meq PO DAILY Mirtazapine 30 Mg Tablet 30 Mg PO HS Topiramate 25 Mg Tablet 25 Mg PO BID Temazepam 15 Mg Capsule 15 Mg PO HS PRN Trazodone Hcl 50 Mg Tablet 50 Mg PO HS Isosorbide Mononitrate Er (Isosorbide Mononitrate) 30 Mg Tab.er.24h 1 Tab PO DAILY Warfarin Sodium 5 Mg Tablet 1 Tab PO DAILY Furosemide 40 Mg Tablet 1 Tab PO DAILY Zyprexa (Olanzapine) 15 Mg Tablet 1 Tab PO QHS Lyrica (Pregabalin) 50 Mg Capsule 1 Cap PO BID Lisinopril 20 Mg Tablet 1 Tab PO DAILY Benztropine Mesylate 1 Mg Tablet 1 Tab PO BID Allergies Allergies: Coded Allergies: Sulfa (Sulfonamide Antibiotics) (Verified Allergy, Severe, rash, tongue swelling, 04/15/15) Iodinated Contrast Media (Verified Allergy, Intermediate, rash, 04/15/15) Penicillins (Verified Allergy, Intermediate, Hives, 04/15/15) aspirin (Verified Allergy, Intermediate, Hives, 04/15/15) codeine (Verified Allergy, Intermediate, Hives; SEE COMMENT, 06/08/15) PT REPORTS TAKING LORTAB WITHOUT COMPLICATIONS, PER ED diphenhydramine HCl (Verified Allergy, Intermediate, rash, 12/19/13) latex (Verified Allergy, Intermediate, Rash, 12/18/13) ROS PSYCHOLOGICAL ROS: No: Hallucinations Eyes: No Loss of vision HEENT: No: Epistaxis Respiratory: No: Hemoptysis, Shortness of breath Cardiovascular: yes Chest Pain Gastrointestinal: No Vomiting Genitourinary: No Hematuria Neurological: No Seizures Skin: No Rash Physical Exam General: Alert, No acute distress HEENT: Atraumatic, PERRLA Lungs: Clear to auscultation Heart: Regular rate, Other (prosthetic AV click crisp) Abdomen: Soft, No tenderness Extremities: Other (trace) Psych/Mental Status: Mood NL Vitals VITALS Vital Signs Date Time Temp Pulse Resp B/P (MAP) Pulse Ox O2 Delivery O2 Flow Rate FiO2 10/07/19 12:18 65 124/53 10/07/19 10:40 97.9 18 92 Room Air 97.9 Labs Labs Laboratory Tests Test 10/06/19 21:50 10/06/19 22:13 10/07/19 01:40 10/07/19 04:30 White Blood Count 8.1 x10^3/uL (4.0-11.0) Red Blood Count 4.81 x10^6/uL (3.50-5.40) Hemoglobin 14.1 g/dL (12.0-15.5) Hematocrit 41.1 % (36.0-47.0) Mean Corpuscular Volume 86 fL (79-100) Mean Corpuscular Hemoglobin 29 pg (25-35) Mean Corpuscular Hemoglobin Concent 34 g/dL (31-37) Red Cell Distribution Width 14.0 % (11.5-14.5) Platelet Count 157 x10^3/uL (140-400) Neutrophils (%) (Auto) 62 % (31-73) Lymphocytes (%) (Auto) 27 % (24-48) Monocytes (%) (Auto) 9 % (0-9) Eosinophils (%) (Auto) 1 % (0-3) Basophils (%) (Auto) 1 % (0-3) Neutrophils # (Auto) 5.1 x10^3/uL (1.8-7.7) Lymphocytes # (Auto) 2.2 x10^3/uL (1.0-4.8) Monocytes # (Auto) 0.7 x10^3/uL (0.0-1.1) Eosinophils # (Auto) 0.1 x10^3/uL (0.0-0.7) Basophils # (Auto) 0.0 x10^3/uL (0.0-0.2) Prothrombin Time 22.9 SEC (11.7-14.0) Prothromb Time International Ratio 2.1 (0.8-1.1) Sodium Level 143 mmol/L (136-145) Potassium Level 3.2 mmol/L (3.5-5.1) Chloride Level 104 mmol/L (98-107) Carbon Dioxide Level 31 mmol/L (21-32) Anion Gap 8 (6-14) Blood Urea Nitrogen 23 mg/dL (7-20) Creatinine 0.8 mg/dL (0.6-1.0) Estimated GFR (Cockcroft-Gault) 73.4 BUN/Creatinine Ratio 29 (6-20) Glucose Level 98 mg/dL (70-99) Calcium Level 9.0 mg/dL (8.5-10.1) Magnesium Level 1.9 mg/dL (1.8-2.4) Total Bilirubin 0.1 mg/dL (0.2-1.0) Aspartate Amino Transf (AST/SGOT) 16 U/L (15-37) Alanine Aminotransferase (ALT/SGPT) 14 U/L (14-59) Alkaline Phosphatase 79 U/L (46-116) Troponin I Quantitative < 0.017 ng/mL (0.000-0.055) < 0.017 ng/mL (0.000-0.055) < 0.017 ng/mL (0.000-0.055) DI-Xef-M-Type Natriuretic Peptide 102 pg/mL (0-124) Total Protein 6.1 g/dL (6.4-8.2) Albumin 3.3 g/dL (3.4-5.0) Albumin/Globulin Ratio 1.2 (1.0-1.7) Urine Collection Type Unknown Urine Color Yellow Urine Clarity Clear Urine pH 6.5 Urine Specific [place] 1.020 Urine Protein Negative mg/dL (NEG-TRACE) Urine Glucose (UA) Negative mg/dL (NEG) Urine Ketones (Stick) Negative mg/dL (NEG) Urine Blood Negative (NEG) Urine Nitrite Negative (NEG) Urine Bilirubin Negative (NEG) Urine Urobilinogen Dipstick 0.2 mg/dL (0.2 mg/dL) Urine Leukocyte Esterase Negative (NEG) Urine RBC 0 /HPF (0-2) Urine WBC Occ /HPF (0-4) Urine Squamous Epithelial Cells Few /LPF Urine Amorphous Sediment Present /HPF Urine Bacteria Few /HPF (0-FEW) Urine Mucus Slight /LPF Laboratory Tests Test 10/06/19 21:50 10/06/19 22:13 10/07/19 01:40 10/07/19 04:30 White Blood Count 8.1 x10^3/uL (4.0-11.0) Red Blood Count 4.81 x10^6/uL (3.50-5.40) Hemoglobin 14.1 g/dL (12.0-15.5) Hematocrit 41.1 % (36.0-47.0) Mean Corpuscular Volume 86 fL (79-100) Mean Corpuscular Hemoglobin 29 pg (25-35) Mean Corpuscular Hemoglobin Concent 34 g/dL (31-37) Red Cell Distribution Width 14.0 % (11.5-14.5) Platelet Count 157 x10^3/uL (140-400) Neutrophils (%) (Auto) 62 % (31-73) Lymphocytes (%) (Auto) 27 % (24-48) Monocytes (%) (Auto) 9 % (0-9) Eosinophils (%) (Auto) 1 % (0-3) Basophils (%) (Auto) 1 % (0-3) Neutrophils # (Auto) 5.1 x10^3/uL (1.8-7.7) Lymphocytes # (Auto) 2.2 x10^3/uL (1.0-4.8) Monocytes # (Auto) 0.7 x10^3/uL (0.0-1.1) Eosinophils # (Auto) 0.1 x10^3/uL (0.0-0.7) Basophils # (Auto) 0.0 x10^3/uL (0.0-0.2) Prothrombin Time 22.9 SEC (11.7-14.0) Prothromb Time International Ratio 2.1 (0.8-1.1) Sodium Level 143 mmol/L (136-145) Potassium Level 3.2 mmol/L (3.5-5.1) Chloride Level 104 mmol/L (98-107) Carbon Dioxide Level 31 mmol/L (21-32) Anion Gap 8 (6-14) Blood Urea Nitrogen 23 mg/dL (7-20) Creatinine 0.8 mg/dL (0.6-1.0) Estimated GFR (Cockcroft-Gault) 73.4 BUN/Creatinine Ratio 29 (6-20) Glucose Level 98 mg/dL (70-99) Calcium Level 9.0 mg/dL (8.5-10.1) Magnesium Level 1.9 mg/dL (1.8-2.4) Total Bilirubin 0.1 mg/dL (0.2-1.0) Aspartate Amino Transf (AST/SGOT) 16 U/L (15-37) Alanine Aminotransferase (ALT/SGPT) 14 U/L (14-59) Alkaline Phosphatase 79 U/L (46-116) Troponin I Quantitative < 0.017 ng/mL (0.000-0.055) < 0.017 ng/mL (0.000-0.055) < 0.017 ng/mL (0.000-0.055) UZ-Cbo-N-Type Natriuretic Peptide 102 pg/mL (0-124) Total Protein 6.1 g/dL (6.4-8.2) Albumin 3.3 g/dL (3.4-5.0) Albumin/Globulin Ratio 1.2 (1.0-1.7) Urine Collection Type Unknown Urine Color Yellow Urine Clarity Clear Urine pH 6.5 Urine Specific [place] 1.020 Urine Protein Negative mg/dL (NEG-TRACE) Urine Glucose (UA) Negative mg/dL (NEG) Urine Ketones (Stick) Negative mg/dL (NEG) Urine Blood Negative (NEG) Urine Nitrite Negative (NEG) Urine Bilirubin Negative (NEG) Urine Urobilinogen Dipstick 0.2 mg/dL (0.2 mg/dL) Urine Leukocyte Esterase Negative (NEG) Urine RBC 0 /HPF (0-2) Urine WBC Occ /HPF (0-4) Urine Squamous Epithelial Cells Few /LPF Urine Amorphous Sediment Present /HPF Urine Bacteria Few /HPF (0-FEW) Urine Mucus Slight /LPF Images Images ECHOCARDIOGRAM <Conclusion> Technically difficult study. The left ventricle is normal size. The left ventricular systolic function is normal and the ejection fraction is within normal range. The Ejection Fraction is estimated at 50%. There is borderline concentric left ventricular hypertrophy. There is a mechanical aortic valve prosthesis. The prosthetic aortic valve appears normal. Calculated aortic valve area is 1.4 cm2 with maximum pressure gradient of 38 mmHg and mean pressure gradient of 22 mmHg. Doppler and Color-flow revealed trace to mild mitral regurgitation. Doppler and Color Flow revealed trace to mild tricuspid regurgitation. DATE: 09/01/18 1801 STRESS TEST Conclusion 1. No EKG evidence of stressed induced ischemia. 2. Nuclear imaging shows no reversible ischemia or infarct. 3. Normal left ventricular systolic function with an ejection fraction of greater than 70%. 4. Low risk Lexiscan nuclear stress test. DATE: 10/26/17 1245 HEART CATH Coronaries. Left main: the left main had no lesions. Left anterior descending vessel. The LAD had a mid 20% lesion. Left circumflex. The left circumflex had no lesions. Right coronary artery. The right coronary had multiple stents that were all widely patent. Assessment/Plan Assessment/Plan 1. Atypical chest/epigastric pain: Myocardial infarction has been ruled out. Symptoms appeared to be GI related. Plan for outpatient ischemic evaluation with stress testing due to her history of coronary disease 2. SSS s/p PPM clinically stable. Patient denied any syncope and near-syncope 3. AVR: mechanical valve. Check 2-D echo as an outpatient to evaluate prosthetic AV function 4. HTN: controlled 5. HLP: statin 6. Schizophrenia/bipolar disorder: Continue current treatment Thank you for your consultation IMMANUEL ALTMAN MD Oct 07, 2019 13:23
[2019-10-07 14:59] VITALS: BP 111/66
[2019-10-07] MEDS: METOCLOPRAMIDE ORAL SOLN 10 MG/10 ML SOLUTION. PO SCH ×2 (17:21→20:12)
[2019-10-07] MEDS: WARFARIN 5 MG TABLET. PO SCH (17:22)
[2019-10-07 19:15] VITALS: BP 82/43
[2019-10-07] MEDS: MIRTAZAPINE 15 MG TABLET PO SCH (20:13)
[2019-10-07] MEDS: OLANZapine 5 MG TABLET PO SCH (20:13)
[2019-10-07] MEDS: ATORVASTATIN CALCIUM 10 MG TABLET. PO SCH (20:13)
[2019-10-07] MEDS: traZODone 50 MG TABLET. PO SCH (21:00)
[2019-10-07 23:15] VITALS: BP 97/62
[2019-10-08 03:10] VITALS: BP 110/46
[2019-10-08 04:18] LABS: CALCIUM 8.1 mg/dL (8.5-10.1); CREATININE 2.3 mg/dL (0.6-1.0); GFR 21.7; POTASSIUM 5.8 mmol/L (3.5-5.1)
[2019-10-08 07:11] VITALS: BP 87/44
[2019-10-08] MEDS: LISINOPRIL 20 MG TABLET PO SCH (09:00)
[2019-10-08] MEDS: ISOSORBIDE MONONITRATE ER 30 MG TAB.ER.24H PO SCH (09:00)
[2019-10-08] MEDS: FUROSEMIDE 40 MG TABLET. PO SCH (09:00)
[2019-10-08] MEDS: PREGABALIN 50 MG CAPSULE PO SCH (09:00)
[2019-10-08] MEDS: POTASSIUM CHLORIDE 20 MEQ TABLET.ER. PO SCH (09:00)
[2019-10-08] MEDS: PANTOPRAZOLE 40 MG TABLET.DR. PO SCH (10:37)
[2019-10-08] MEDS: METOCLOPRAMIDE ORAL SOLN 10 MG/10 ML SOLUTION. PO SCH ×4 (10:37→20:42)
[2019-10-08] MEDS: FLUoxetine HCL 20 MG CAPSULE PO SCH (10:38)
[2019-10-08] MEDS: BENZTROPINE MESYLATE 1 MG TABLET. PO SCH ×2 (10:38→20:42)
[2019-10-08] MEDS: TOPIRAMATE 25 MG TABLET. PO SCH ×2 (10:38→20:42)
[2019-10-08] MEDS: DIVALPROEX DELAYED RELEASE 500 MG TABLET.DR. PO SCH ×2 (10:43→20:41)
[2019-10-08 10:54] VITALS: BP 98/55
--- NOTE | 2019-10-08 11:20 | PDOC ---
PROGRESS NOTES Subjective Subjective Continues to complain of atypical chest/epigastric pain Objective Objective Vital Signs Date Time Temp Pulse Resp B/P (MAP) Pulse Ox O2 Delivery O2 Flow Rate FiO2 10/08/19 10:54 98.2 71 98/55 (69) 96 Nasal Cannula 2.0 98.2 10/08/19 03:10 18 Intake and Output 10/08/19 07:00 Intake Total 1340 ml Output Total 500 ml Balance 840 ml Intake Oral 1340 ml Output Urine Total 500 ml Physical Exam Abdomen: Soft, No tenderness Heart: Regular rate, Other (prosthetic AV click crisp) Extremities: Other (trace) General: Alert, No acute distress HEENT: Atraumatic, PERRLA Lungs: Clear to auscultation MUSCULOSKELETAL: Osteoarthritic changes both hands Psych/Mental Status: Mood NL Assessment Assessment 1. Atypical chest/epigastric pain: Myocardial infarction has been ruled out. Symptoms appeared to be GI related. Plan for outpatient ischemic evaluation with stress testing due to her history of coronary disease 2. SSS s/p PPM clinically stable. Patient denied any syncope and near-syncope 3. AVR: mechanical valve. Check 2-D echo as an outpatient to evaluate prosthetic AV function 4. HTN: controlled 5. HLP: statin 6. Schizophrenia/bipolar disorder: Continue current treatment Comment Review of Relevant I have reviewed the following items yonathan (where applicable) has been applied. Labs Laboratory Tests Test 10/08/19 04:00 Sodium Level 137 mmol/L (136-145) Potassium Level 5.8 mmol/L (3.5-5.1) Chloride Level 103 mmol/L (98-107) Carbon Dioxide Level 25 mmol/L (21-32) Anion Gap 9 (6-14) Blood Urea Nitrogen 36 mg/dL (7-20) Creatinine 2.3 mg/dL (0.6-1.0) Estimated GFR (Cockcroft-Gault) 21.7 Glucose Level 108 mg/dL (70-99) Calcium Level 8.1 mg/dL (8.5-10.1) Medications Current Medications Atorvastatin Calcium (Lipitor) 10 mg QHS PO Last administered on 10/07/19at 20:13; Start 10/07/19 at 21:00 Benztropine Mesylate (Cogentin) 1 mg BID PO Last administered on 10/08/19at 10:38; Start 10/07/19 at 12:00 Divalproex Sodium (Depakote) 500 mg BID PO Last administered on 10/08/19 10:43; Start 10/07/19 at 12:30 Fluoxetine HCl (PROzac) 40 mg DAILY PO Last administered on 10/08/19 10:38; Start 10/07/19 at 12:30 Furosemide (Lasix) 40 mg DAILY PO Last administered on 10/07/19 12:18; Start 10/07/19 at 12:30 Isosorbide Mononitrate (Imdur) 30 mg DAILY PO Last administered on 10/07/19 12:17; Start 10/07/19 at 12:30 Lisinopril (Prinivil) 20 mg DAILY PO Last administered on 10/07/19 12:18; Start 10/07/19 at 12:30 Metoclopramide HCl (Reglan Oral Solution) 5 mg QIDACHS PO Last administered on 10/08/19 10:37; Start 10/07/19 at 16:30 Mirtazapine (Remeron) 30 mg QHS PO Last administered on 10/07/19 20:13; Start 10/07/19 at 21:00 Olanzapine (ZyPREXA) 15 mg QHS PO Last administered on 10/07/19 20:13; Start 10/07/19 at 21:00 Ondansetron HCl (Zofran Odt) 4 mg PRN TID PRN PO NAUSEA/VOMITING; Start 10/07/19 at 12:00 Pantoprazole Sodium (Protonix) 40 mg DAILYAC PO Last administered on 10/08/19 10:37; Start 10/07/19 at 12:30 Potassium Chloride (Klor-Con) 20 meq DAILY PO ; Start 10/07/19 at 12:30 Potassium Chloride (Klor-Con) 40 meq 1X ONCE PO Last administered on 10/07/19 12:17; Start 10/07/19 at 12:30; Stop 10/07/19 at 12:31; Status DC Pregabalin (Lyrica) 50 mg BID PO Last administered on 10/07/19at 23:15; Start 10/07/19 at 12:30 Temazepam (Restoril) 15 mg PRN QHS PRN PO INSOMNIA; Start 10/07/19 at 11:45 Topiramate (Topamax) 25 mg BID PO Last administered on 10/08/19at 10:38; Start 10/07/19 at 12:30 Trazodone HCl (Desyrel) 50 mg HS PO ; Start 10/07/19 at 21:00 Warfarin Sodium (Coumadin Per Physician) 1 each PRN DAILY PRN MC SEE COMMENTS; Start 10/07/19 at 12:00 Warfarin Sodium (Coumadin) 5 mg DAILY16 PO Last administered on 10/07/19at 17:22; Start 10/07/19 at 16:00 Vitals/I & O Vital Sign - Last 24 Hours 10/07/19 10/07/19 10/07/19 10/07/19 12:17 12:18 14:59 17:24 Temp 98.0 98.0 Pulse 65 65 70 Resp 18 18 B/P (MAP) 124/53 124/53 111/66 (81) Pulse Ox 90 90 O2 Delivery Room Air Room Air 10/07/19 10/07/19 10/07/19 10/07/19 18:15 19:15 19:20 20:00 Temp 98.0 98.0 Pulse 71 Resp 20 B/P (MAP) 82/43 (56) Pulse Ox 90 84 94 O2 Delivery Room Air Room Air Nasal Cannula Nasal Cannula O2 Flow Rate 2.0 2.0 10/07/19 10/08/19 10/08/19 10/08/19 23:15 03:10 07:11 08:01 Temp 99.2 99.1 98.4 99.2 99.1 98.4 Pulse 69 64 63 Resp 18 18 B/P (MAP) 97/62 (74) 110/46 (67) 87/44 (58) Pulse Ox 93 93 95 O2 Delivery Nasal Cannula Nasal Cannula Nasal Cannula Room Air O2 Flow Rate 2.0 2.0 2.0 10/08/19 10:54 Temp 98.2 98.2 Pulse 71 B/P (MAP) 98/55 (69) Pulse Ox 96 O2 Delivery Nasal Cannula O2 Flow Rate 2.0 Intake and Output 10/07/19 10/07/19 10/08/19 15:00 23:00 07:00 Intake Total 720 ml 120 ml 500 ml Output Total 500 ml Balance 220 ml 120 ml 500 ml IMMANUEL ALTMAN MD Oct 08, 2019 11:20
[2019-10-08] MEDS ORDERED: PREGABALIN 50 MG CAPSULE PO PRN (11:45)
[2019-10-08] MEDS: IV NORMAL SALINE 1000ML BAG 1,000 ML IV SCH (11:47)
--- NOTE | 2019-10-08 12:07 | PDOC ---
PROGRESS NOTES Subjective Subjective sleepy today Objective Objective Vital Signs Date Time Temp Pulse Resp B/P (MAP) Pulse Ox O2 Delivery O2 Flow Rate FiO2 10/08/19 10:54 98.2 71 98/55 (69) 96 Nasal Cannula 2.0 98.2 10/08/19 03:10 18 Intake and Output 10/08/19 07:00 Intake Total 1340 ml Output Total 500 ml Balance 840 ml Intake Oral 1340 ml Output Urine Total 500 ml Physical Exam Abdomen: Soft, No tenderness Heart: Regular rate, Other (prosthetic AV click crisp) Extremities: Other (trace) General: Alert, No acute distress HEENT: Atraumatic, PERRLA Lungs: Clear to auscultation MUSCULOSKELETAL: No swelling, Osteoarthritic changes both hands Neuro: Normal speech Psych/Mental Status: Mood NL Skin: No breakdown Assessment Assessment FINAL IMPRESSION: 1. Chest pain for cardiac evaluation. 2. Known history of coronary artery disease, previous cardiac stents. 3. History of aortic valve replacement, mechanical valve, on Coumadin. INR is 2.1 therapeutic. 4. Hypertension. 5. Hyperlipidemia. 6. Bipolar. 7. Hypokalemia. PLAN: cardiac enzymes neg. monitor nsr. cardiology consult. cr 2.3 ,pot 5.8, will repeat today,? error iv fluids for now. At this time, admit to hospital. Cardiology consulted. Replace potassium. PT, OT and see how she improves in the next 24-48 hours. cardiac enzymes, rn cardiac rehab. Comment Review of Relevant I have reviewed the following items yonathan (where applicable) has been applied. Labs Laboratory Tests Test 10/08/19 04:00 Sodium Level 137 mmol/L (136-145) Potassium Level 5.8 mmol/L (3.5-5.1) Chloride Level 103 mmol/L (98-107) Carbon Dioxide Level 25 mmol/L (21-32) Anion Gap 9 (6-14) Blood Urea Nitrogen 36 mg/dL (7-20) Creatinine 2.3 mg/dL (0.6-1.0) Estimated GFR (Cockcroft-Gault) 21.7 Glucose Level 108 mg/dL (70-99) Calcium Level 8.1 mg/dL (8.5-10.1) Medications Current Medications Atorvastatin Calcium (Lipitor) 10 mg QHS PO Last administered on 10/07/19at 20:13; Start 10/07/19 at 21:00 Divalproex Sodium (Depakote) 500 mg BID PO Last administered on 10/08/19at 10:43; Start 10/07/19 at 12:30 Fluoxetine HCl (PROzac) 40 mg DAILY PO Last administered on 10/08/19at 10:38; Start 10/07/19 at 12:30 Furosemide (Lasix) 40 mg DAILY PO Last administered on 10/07/19at 12:18; Start 10/07/19 at 12:30 Isosorbide Mononitrate (Imdur) 30 mg DAILY PO Last administered on 10/07/19at 12:17; Start 10/07/19 at 12:30 Lisinopril (Prinivil) 20 mg DAILY PO Last administered on 10/07/19at 12:18; Start 10/07/19 at 12:30 Metoclopramide HCl (Reglan Oral Solution) 5 mg QIDACHS PO Last administered on 10/08/19at 10:37; Start 10/07/19 at 16:30 Mirtazapine (Remeron) 30 mg QHS PO Last administered on 10/07/19at 20:13; Start 10/07/19 at 21:00 Olanzapine (ZyPREXA) 15 mg QHS PO Last administered on 10/07/19at 20:13; Start 10/07/19 at 21:00 Pantoprazole Sodium (Protonix) 40 mg DAILYAC PO Last administered on 10/08/19at 10:37; Start 10/07/19 at 12:30 Potassium Chloride (Klor-Con) 20 meq DAILY PO ; Start 10/07/19 at 12:30 Potassium Chloride (Klor-Con) 40 meq 1X ONCE PO Last administered on 10/07/19at 12:17; Start 10/07/19 at 12:30; Stop 10/07/19 at 12:31; Status DC Pregabalin (Lyrica) 50 mg BID PO Last administered on 10/07/19at 23:15; Start 10/07/19 at 12:30; Stop 10/08/19 at 11:45; Status DC Pregabalin (Lyrica) 50 mg PRN BID PRN PO PAIN; Start 10/08/19 at 11:45 Sodium Chloride 1,000 ml @ 75 mls/hr [id number] IV Last administered on 10/08/19at 11:47; Start 10/08/19 at 11:45 Topiramate (Topamax) 25 mg BID PO Last administered on 10/08/19at 10:38; Start 10/07/19 at 12:30 Trazodone HCl (Desyrel) 50 mg HS PO ; Start 10/07/19 at 21:00 Warfarin Sodium (Coumadin) 5 mg DAILY16 PO Last administered on 10/07/19at 17:22; Start 10/07/19 at 16:00 Vitals/I & O Vital Sign - Last 24 Hours 10/07/19 10/07/19 10/07/19 10/07/19 12:17 12:18 14:59 17:24 Temp 98.0 98.0 Pulse 65 65 70 Resp 18 18 B/P (MAP) 124/53 124/53 111/66 (81) Pulse Ox 90 90 O2 Delivery Room Air Room Air 10/07/19 10/07/19 10/07/19 10/07/19 18:15 19:15 19:20 20:00 Temp 98.0 98.0 Pulse 71 Resp 20 B/P (MAP) 82/43 (56) Pulse Ox 90 84 94 O2 Delivery Room Air Room Air Nasal Cannula Nasal Cannula O2 Flow Rate 2.0 2.0 10/07/19 10/08/19 10/08/19 10/08/19 23:15 03:10 07:11 08:01 Temp 99.2 99.1 98.4 99.2 99.1 98.4 Pulse 69 64 63 Resp 18 18 B/P (MAP) 97/62 (74) 110/46 (67) 87/44 (58) Pulse Ox 93 93 95 O2 Delivery Nasal Cannula Nasal Cannula Nasal Cannula Room Air O2 Flow Rate 2.0 2.0 2.0 10/08/19 10:54 Temp 98.2 98.2 Pulse 71 B/P (MAP) 98/55 (69) Pulse Ox 96 O2 Delivery Nasal Cannula O2 Flow Rate 2.0 Intake and Output 10/07/19 10/07/19 10/08/19 15:00 23:00 07:00 Intake Total 720 ml 120 ml 500 ml Output Total 500 ml Balance 220 ml 120 ml 500 ml NICOLE SMITH MD Oct 08, 2019 12:07
[2019-10-08 13:29] LABS: CALCIUM 8.1 mg/dL (8.5-10.1); CREATININE 1.8 mg/dL (0.6-1.0); GFR 28.8; POTASSIUM 4.3 mmol/L (3.5-5.1)
[2019-10-08 15:44] VITALS: BP 114/51
--- NOTE | 2019-10-08 16:44 | EKG ---
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
[2019-10-08] MEDS: WARFARIN 5 MG TABLET. PO SCH (16:59)
[2019-10-08 19:55] VITALS: BP 123/57
[2019-10-08] MEDS: ATORVASTATIN CALCIUM 10 MG TABLET. PO SCH (20:41)
[2019-10-08] MEDS: MIRTAZAPINE 15 MG TABLET PO SCH (20:41)
[2019-10-08] MEDS: OLANZapine 5 MG TABLET PO SCH (20:41)
[2019-10-08] MEDS: traZODone 50 MG TABLET. PO SCH (20:42)
[2019-10-08 22:30] VITALS: BP 133/58
[2019-10-09] MEDS: IV NORMAL SALINE 1000ML BAG 1,000 ML IV SCH (01:05)
[2019-10-09 02:45] VITALS: BP 119/50
[2019-10-09] MEDS ORDERED: ACETAMINOPHEN 325 MG TABLET. PO PRN (03:45)
[2019-10-09 06:59] LABS: CALCIUM 7.8 mg/dL (8.5-10.1); CREATININE 0.9 mg/dL (0.6-1.0); GFR 64.1; POTASSIUM 4.2 mmol/L (3.5-5.1)
[2019-10-09 07:00] VITALS: BP 114/55
[2019-10-09 07:08] LABS: BASO % 0 % (0-3); EOS # 0.2 x10^3/uL (0.0-0.7); EOS % 2 % (0-3); HEMOGLOBIN 12.9 g/dL (12.0-15.5); LYMPH # 1.9 x10^3/uL (1.0-4.8); LYMPH % 26 % (24-48); MEAN CORPUSCULAR HEMOGLOBIN 29 pg (25-35); MEAN CORPUSCULAR HGB CONC 34 g/dL (31-37); MEAN CORPUSCULAR VOLUME 86 fL (79-100); MONO # 0.6 x10^3/uL (0.0-1.1); MONO % 8 % (0-9); NEUT # 4.7 x10^3/uL (1.8-7.7); NEUT % 64 % (31-73); PLATELET COUNT 137 x10^3/uL (140-400); RED BLOOD COUNT 4.42 x10^6/uL (3.50-5.40); WHITE BLOOD COUNT 7.5 x10^3/uL (4.0-11.0)
[2019-10-09] MEDS: ISOSORBIDE MONONITRATE ER 30 MG TAB.ER.24H PO SCH (09:00)
--- NOTE | 2019-10-09 09:36 | PDOC ---
PROGRESS NOTES Subjective Subjective feels better today Objective Objective Vital Signs Date Time Temp Pulse Resp B/P (MAP) Pulse Ox O2 Delivery O2 Flow Rate FiO2 10/09/19 07:00 98.2 67 18 114/55 (74) 98 Nasal Cannula 2.0 98.2 Intake and Output 10/09/19 07:00 Intake Total 1810 ml Output Total 1800 ml Balance 10 ml Intake Oral 1810 ml Output Urine Total 1800 ml # Voids 2 # Bowel Movements 1 Physical Exam Abdomen: Soft, No tenderness Heart: Regular rate, Other (prosthetic AV click crisp) Extremities: Other (trace) General: Alert, No acute distress HEENT: Atraumatic, PERRLA Lungs: Clear to auscultation MUSCULOSKELETAL: No swelling, Osteoarthritic changes both hands Neuro: Normal speech Psych/Mental Status: Mood NL Skin: No breakdown Assessment Assessment FINAL IMPRESSION: 1. Chest pain for cardiac evaluation. 2. Known history of coronary artery disease, previous cardiac stents. 3. History of aortic valve replacement, mechanical valve, on Coumadin. INR is 2.1 therapeutic. 4. Hypertension. 5. Hyperlipidemia. 6. Bipolar. 7. Hypokalemia. PLAN: d/c home today . cardiac enzymes neg. monitor nsr. cardiology consult appreciated,no further testing planned. pot ,kidney normal today d/c iv fluids for now. At this time, admit to hospital. Cardiology consulted. Replace potassium. PT, OT and see how she improves in the next 24-48 hours. 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 Comment Review of Relevant I have reviewed the following items yonathan (where applicable) has been applied. Labs Laboratory Tests Test 10/08/19 13:00 10/09/19 06:03 Sodium Level 140 mmol/L (136-145) 141 mmol/L (136-145) Potassium Level 4.3 mmol/L (3.5-5.1) 4.2 mmol/L (3.5-5.1) Chloride Level 104 mmol/L (98-107) 107 mmol/L (98-107) Carbon Dioxide Level 27 mmol/L (21-32) 29 mmol/L (21-32) Anion Gap 9 (6-14) 5 (6-14) Blood Urea Nitrogen 39 mg/dL (7-20) 22 mg/dL (7-20) Creatinine 1.8 mg/dL (0.6-1.0) 0.9 mg/dL (0.6-1.0) Estimated GFR (Cockcroft-Gault) 28.8 64.1 Glucose Level 140 mg/dL (70-99) 108 mg/dL (70-99) Calcium Level 8.1 mg/dL (8.5-10.1) 7.8 mg/dL (8.5-10.1) White Blood Count 7.5 x10^3/uL (4.0-11.0) Red Blood Count 4.42 x10^6/uL (3.50-5.40) Hemoglobin 12.9 g/dL (12.0-15.5) Hematocrit 38.0 % (36.0-47.0) Mean Corpuscular Volume 86 fL (79-100) Mean Corpuscular Hemoglobin 29 pg (25-35) Mean Corpuscular Hemoglobin Concent 34 g/dL (31-37) Red Cell Distribution Width 14.0 % (11.5-14.5) Platelet Count 137 x10^3/uL (140-400) Neutrophils (%) (Auto) 64 % (31-73) Lymphocytes (%) (Auto) 26 % (24-48) Monocytes (%) (Auto) 8 % (0-9) Eosinophils (%) (Auto) 2 % (0-3) Basophils (%) (Auto) 0 % (0-3) Neutrophils # (Auto) 4.7 x10^3/uL (1.8-7.7) Lymphocytes # (Auto) 1.9 x10^3/uL (1.0-4.8) Monocytes # (Auto) 0.6 x10^3/uL (0.0-1.1) Eosinophils # (Auto) 0.2 x10^3/uL (0.0-0.7) Basophils # (Auto) 0.0 x10^3/uL (0.0-0.2) Medications Current Medications Acetaminophen (Tylenol) 650 mg PRN Q6HRS PRN PO FEVER Last administered on 10/09/19at 03:47; Start 10/09/19 at 03:45 Pregabalin (Lyrica) 50 mg PRN BID PRN PO PAIN Last administered on 10/08/19at 20:48; Start 10/08/19 at 11:45 Sodium Chloride 1,000 ml @ 75 mls/hr [id number] IV Last administered on 10/08/19at 11:47; Start 10/08/19 at 11:45 Vitals/I & O Vital Sign - Last 24 Hours 10/08/19 10/08/19 10/08/19 10/08/19 10:54 15:44 19:55 20:00 Temp 98.2 98.0 97.8 98.2 98.0 97.8 Pulse 71 64 70 Resp 18 B/P (MAP) 98/55 (69) 114/51 (72) 123/57 (79) Pulse Ox 96 98 98 O2 Delivery Nasal Cannula Nasal Cannula Room Air Nasal Cannula O2 Flow Rate 2.0 2.0 2.0 10/08/19 10/09/19 10/09/19 22:30 02:45 07:00 Temp 97.9 99.9 98.2 97.9 99.9 98.2 Pulse 68 84 67 Resp 18 20 18 B/P (MAP) 133/58 (83) 119/50 (73) 114/55 (74) Pulse Ox 97 93 98 O2 Delivery Room Air Room Air Nasal Cannula O2 Flow Rate 2.0 Intake and Output 10/08/19 10/08/19 10/09/19 15:00 23:00 07:00 Intake Total 120 ml 1150 ml 540 ml Output Total 600 ml 1200 ml Balance 120 ml 550 ml -660 ml NICOLE SMITH MD Oct 09, 2019 09:35
[2019-10-09] MEDS: BENZTROPINE MESYLATE 1 MG TABLET. PO SCH (09:50)
[2019-10-09] MEDS: LISINOPRIL 20 MG TABLET PO SCH (09:51)
[2019-10-09] MEDS: FLUoxetine HCL 20 MG CAPSULE PO SCH (09:51)
[2019-10-09] MEDS: DIVALPROEX DELAYED RELEASE 500 MG TABLET.DR. PO SCH (09:52)
[2019-10-09] MEDS: FUROSEMIDE 40 MG TABLET. PO SCH (09:52)
[2019-10-09] MEDS: PANTOPRAZOLE 40 MG TABLET.DR. PO SCH (09:52)
[2019-10-09] MEDS: TOPIRAMATE 25 MG TABLET. PO SCH (09:52)
[2019-10-09] MEDS: METOCLOPRAMIDE ORAL SOLN 10 MG/10 ML SOLUTION. PO SCH ×2 (09:53→11:30)
[2019-10-09] MEDS: POTASSIUM CHLORIDE 20 MEQ TABLET.ER. PO SCH (09:53)
[2019-10-09 10:48] VITALS: BP 131/52
--- NOTE | 2019-10-09 12:33 | NUR ---
SS following for discharge planning. SS reviewed pt chart. Pt is from home with family and is currently requiring oxygen. PT recommended home with assistance. Pt has had [facility] in the past. Discharge order on the chart for home with self care. SS will continue to follow for discharge planning. Addendum: 10/09/19 at 1236 by BILL PA SS CORRECTION TO PREVIOUS NOTE: Pt's is currently on room air.
--- NOTE | 2019-10-09 13:34 | PDOC ---
CARDIO Progress Notes Date and Time Date of Service 10/09/19 Time of Evaluation 1215 Subjective Subjective: No Chest Pain, No shortness of breath, No Palpitations Vitals Vitals Vital Signs Date Time Temp Pulse Resp B/P (MAP) Pulse Ox O2 Delivery O2 Flow Rate FiO2 10/09/19 10:48 98.0 67 18 131/52 (78) 93 Room Air 98.0 10/09/19 08:00 2.0 Weight Weight [ ] Input and Output Intake and Output Intake and Output 10/09/19 07:00 Intake Total 1810 ml Output Total 1800 ml Balance 10 ml Intake Oral 1810 ml Output Urine Total 1800 ml # Voids 2 # Bowel Movements 1 Laboratory Labs Laboratory Tests Test 10/09/19 06:03 White Blood Count 7.5 x10^3/uL (4.0-11.0) Red Blood Count 4.42 x10^6/uL (3.50-5.40) Hemoglobin 12.9 g/dL (12.0-15.5) Hematocrit 38.0 % (36.0-47.0) Mean Corpuscular Volume 86 fL (79-100) Mean Corpuscular Hemoglobin 29 pg (25-35) Mean Corpuscular Hemoglobin Concent 34 g/dL (31-37) Red Cell Distribution Width 14.0 % (11.5-14.5) Platelet Count 137 x10^3/uL (140-400) Neutrophils (%) (Auto) 64 % (31-73) Lymphocytes (%) (Auto) 26 % (24-48) Monocytes (%) (Auto) 8 % (0-9) Eosinophils (%) (Auto) 2 % (0-3) Basophils (%) (Auto) 0 % (0-3) Neutrophils # (Auto) 4.7 x10^3/uL (1.8-7.7) Lymphocytes # (Auto) 1.9 x10^3/uL (1.0-4.8) Monocytes # (Auto) 0.6 x10^3/uL (0.0-1.1) Eosinophils # (Auto) 0.2 x10^3/uL (0.0-0.7) Basophils # (Auto) 0.0 x10^3/uL (0.0-0.2) Sodium Level 141 mmol/L (136-145) Potassium Level 4.2 mmol/L (3.5-5.1) Chloride Level 107 mmol/L (98-107) Carbon Dioxide Level 29 mmol/L (21-32) Anion Gap 5 (6-14) Blood Urea Nitrogen 22 mg/dL (7-20) Creatinine 0.9 mg/dL (0.6-1.0) Estimated GFR (Cockcroft-Gault) 64.1 Glucose Level 108 mg/dL (70-99) Calcium Level 7.8 mg/dL (8.5-10.1) Physical Exam HEENT: Neck Supple W Full Motion Chest: Symmetric LUNGS: Clear to Auscultation Heart: S1S2, RRR Abdomen: Soft N/T Extremities: No Edema Neurology: alert, follow commands Assessment Assessment 1. Atypical chest/epigastric pain: Myocardial infarction has been ruled out. Symptoms appeared to be GI related. Plan for outpatient ischemic evaluation with stress testing due to her history of coronary disease 2. CAD: Multiple past stents, clinically stable. 3. SSS s/p PPM ([employer]) recent device check with normal function. Patient denied any syncope and near-syncope 4. AVR: mechanical valve. Check 2-D echo as an outpatient to evaluate prosthetic AV function 5. HTN: controlled 6. HLP: statin 7. Schizophrenia/bipolar disorder: Continue current treatment Recommendations Continue secondary prevention measures. May discharge from a CV standpoint and f/u in our office with Dr. Rasmussen as scheduled. SOTERO DUMONT APRN Oct 09, 2019 13:34
== END 2019-10-09 13:45 | disposition home or self-care (01) | DRG 313 ==
LOC: ER 20:53 → 2 SOUTH 23:00
PROVIDERS: ADMIT Internal Medicine; ATTEND Internal Medicine
DX: R07.89 Other chest pain (principal); K21.9 Gastro-esophageal reflux disease without esophagitis; F41.9 Anxiety disorder, unspecified; M19.90 Unspecified osteoarthritis, unspecified site; F31.9 Bipolar disorder, unspecified; E87.6 Hypokalemia; E78.5 Hyperlipidemia, unspecified; I49.5 Sick sinus syndrome; I48.91 Unspecified atrial fibrillation; I50.9 Heart failure, unspecified; I11.0 Hypertensive heart disease with heart failure; J44.9 Chronic obstructive pulmonary disease, unspecified; I25.10 Atherosclerotic heart disease of native coronary artery without angina pectoris; F20.9 Schizophrenia, unspecified; Z86.73 Personal history of transient ischemic attack (TIA), and cerebral infarction without residual deficits; I25.2 Old myocardial infarction; Z95.2 Presence of prosthetic heart valve; Z88.5 Allergy status to narcotic agent; Z88.0 Allergy status to penicillin; Z88.2 Allergy status to sulfonamides; Z88.6 Allergy status to analgesic agent; Z91.041 Radiographic dye allergy status; Z91.040 Latex allergy status; Z95.0 Presence of cardiac pacemaker; Z95.5 Presence of coronary angioplasty implant and graft; Z79.01 Long term (current) use of anticoagulants; Z87.11 Personal history of peptic ulcer disease; Z90.710 Acquired absence of both cervix and uterus; Z95.1 Presence of aortocoronary bypass graft; Z82.3 Family history of stroke; Z83.3 Family history of diabetes mellitus
CPT/HCPCS: 36415; 71045; 80048; 80053; 81001; 83735; 83880; 84484; 85025; 85610; 93005; 96374; 96375; 96376; J2270; J2405; J2765; J7030; J8597; 97116; 99285-25; G0378

== ENCOUNTER 2019-11-27 16:35 | Emergency (ER) | payer MEDICARE, MEDICAID ==
[~2019-11-27] VITALS: Ht 154.9 cm; Wt 92.0 kg
[~2019-11-27 16:35] MED LIST changes: -FLUO20CA19 PO; +FLUO20CA20 PO; +OXYC-325 PO; +PANT40TA6 PO
[2019-11-27] MEDS ORDERED: NITROGLYCERIN SUBLINGUAL 0.4 MG BOTTLE OF 25. SL PRN (17:15)
[2019-11-27] MEDS ORDERED: fentaNYL PF VIAL 100 MCG/2 ML VIAL IVP ONE (17:15)
[2019-11-27] MEDS ORDERED: ASPIRIN 325 MG TABLET PO ONE (17:15)
[2019-11-27] MEDS ORDERED: ACETAMINOPHEN 500 MG TABLET PO ONE (17:15)
[2019-11-27 17:39] LABS: BASO # 0.1 x10^3/uL (0.0-0.2); BASO % 1 % (0-3); EOS # 0.1 x10^3/uL (0.0-0.7); EOS % 1 % (0-3); HEMATOCRIT 41.7 % (36.0-47.0); LYMPH # 1.6 x10^3/uL (1.0-4.8); LYMPH % 19 % (24-48); MEAN CORPUSCULAR HEMOGLOBIN 29 pg (25-35); MEAN CORPUSCULAR HGB CONC 34 g/dL (31-37); MEAN CORPUSCULAR VOLUME 86 fL (79-100); MONO # 0.6 x10^3/uL (0.0-1.1); MONO % 7 % (0-9); NEUT % 71 % (31-73); PLATELET COUNT 190 x10^3/uL (140-400); RED BLOOD COUNT 4.87 x10^6/uL (3.50-5.40); RED CELL DISTRIBUTION WIDTH 14.3 % (11.5-14.5); WHITE BLOOD COUNT 8.5 x10^3/uL (4.0-11.0)
[2019-11-27 17:48] LABS: PROTHROMBIN TIME PATIENT 21.6 SEC (11.7-14.0)
--- NOTE | 2019-11-27 17:56 | RAD ---
Single view chest dated 11/27/2019. Comparison made to 11/20/2019. Clinical data indication: Chest pain. FINDINGS: Single upright portable exam performed. Heart and mediastinal contours are stable. Patient is status post median sternotomy. There is a dual lead left subclavian pacer in place, unchanged. Lungs are somewhat hyperinflated but otherwise clear. No consolidation or pleural effusion. No pneumothorax. IMPRESSION: No acute radiographic abnormality. Stable findings compared to 11/20/2019. Electronically signed by: Efrem Odonnell MD (11/27/2019 5:53 PM) [id number]
--- NOTE | 2019-11-27 18:04 | RAD ---
CT abdomen pelvis without contrast dated 11/27/2019. Comparison made to 07/20/2019. CLINICAL INDICATION: Abdominal pain. TECHNIQUE: Contiguous axial imaging the M pelvis performed without the administration of IV or oral contrast. One or more of the following individualized dose reduction techniques were utilized for this examination: 1. Automated exposure control 2. Adjustment of the mA and/or kV according to patient size 3. Use of iterative reconstruction technique. FINDINGS: Limited images of lung bases show some patchy groundglass opacity in the lower lobes, nonspecific. Heart size mildly enlarged. No pleural or pericardial effusion. Evidence of prior aortic valve replacement. Prominent subxiphoid ventral hernia containing only fat. Solid abdominal viscera not well evaluated in the absence of contrast material. No apparent attenuation abnormality of the liver or spleen. Gallbladder is surgically absent. There is fatty replacement of the pancreas. Adrenal glands unremarkable. Kidneys are symmetric in size and attenuation. No calcific renal or ureteral stone. No hydronephrosis. Unopacified GI tract normal in caliber and contour. No focal bowel wall thickening. No inflammatory stranding in the mesentery. No ascites or lymphadenopathy. Abdominal aorta normal in caliber. There is a prominent infraumbilical ventral hernia containing only fat. Images of pelvis a nondistended urinary bladder. Uterus is surgically absent. No free pelvic fluid or pelvic lymphadenopathy. Borderline enlarged left inguinal lymph node, nonspecific. Bone windows show no acute findings. There is mild wedge compression deformity of T9 and T10, unchanged from prior study. Multilevel spondylosis. IMPRESSION: 1. No acute abnormality of abdomen or pelvis. No renal stone or hydronephrosis. 2. Prominent subxiphoid and infraumbilical ventral hernias containing only fat. 3. Status post cholecystectomy and hysterectomy. Electronically signed by: Efrem Odonnell MD (11/27/2019 6:02 PM) [id number]
[2019-11-27 18:05] LABS: CALCIUM 8.7 mg/dL (8.5-10.1); CREATININE 0.7 mg/dL (0.6-1.0); GFR 85.6
[2019-11-27 18:10] LABS: ALBUMIN 3.4 g/dL (3.4-5.0); ALBUMIN/GLOBULIN RATIO 1.2 (1.0-1.7); MAGNESIUM 1.8 mg/dL (1.8-2.4); TOTAL BILIRUBIN 0.2 mg/dL (0.2-1.0); TOTAL PROTEIN 6.3 g/dL (6.4-8.2)
[2019-11-27 18:18] LABS: CREATINE KINASE 37 U/L (26-192)
[2019-11-27 18:28] LABS: BILIRUBIN,URINE NEGATIVE (NEG); CLARITY,URINE CLEAR; COLOR,URINE YELLOW; NITRITE,URINE NEGATIVE (NEG); PH,URINE 6.5 (<5.0-8.0); PROTEIN,URINE NEGATIVE (NEG-TRACE)
[2019-11-27 18:37] LABS: BARBITURATES NEG (NEG); BENZODIAZEPINES NEG (NEG); CANNABINOIDS NEG (NEG); COCAINE NEG (NEG); METHADONE NEG (NEG); OPIATES NEG (NEG); PHENCYCLIDINE NEG (NEG)
[2019-11-27 18:38] LABS: AMPHETAMINE/METHAMPHETAMINE NEG (NEG)
[2019-11-27 18:40] LABS: BACTERIA,URINE FEW /HPF (0-FEW); RBC,URINE 0 /HPF (0-2); SQUAMOUS EPITHELIAL CELL,UR MANY /LPF; WBC,URINE OCC /HPF (0-4)
[2019-11-27] MEDS ORDERED: DICY20TA3 PO (19:20)
[2019-11-27] MEDS ORDERED: ONDA4TAB12 PO (19:20)
--- NOTE | 2019-11-27 19:21 | PHYS DOC ---
Past Medical History Past Medical History: A-Fib, Anxiety, Bipolar, CVA, Hypertension, OH, Renal Disease, Schizophrenia Additional Past Medical Histor: HALLUCINATIONS, AORTIC VALVE DISORDERS, mi 1996, kidney problems (KUNAL RILEY APRN) Past Surgical History: Cholecystectomy, Pacemaker Additional Past Surgical Histo: AVR, defibrillator (KUNAL RILEY APRN) Smoking Status: Never Smoker Alcohol Use: None Drug Use: None (KUNAL RILEY APRN) Attending Signature I have participated in the care of this patient and I have reviewed and agree with all pertinent clinical information above including history, exam, and recommendations. (CRISTOBAL GRAHAM MD) Adult General Chief Complaint Chief Complaint: ABDOMINAL PAIN HPI HPI Patient is a 59 year old female with history of anxiety, bipolar, OH, hypertension, kidney disease, among other illnesses who presents to the ED today complaining of 10 out of 10 generalized abdominal pain with nausea vomiting and diarrhea that began today. Patient denies any hematemesis or melena. She reports vomiting makes her symptoms worse. (KUNAL RILEY APRN) Review of Systems Review of Systems Constitutional: Denies fever or chills [] Eyes: Denies change in visual acuity, redness, or eye pain [] HENT: Denies nasal congestion or sore throat [] Respiratory: Denies cough or shortness of breath [] Cardiovascular: No additional information not addressed in HPI [] GI: Reports abdominal pain with nausea vomiting and diarrhea : Denies dysuria or hematuria [] Musculoskeletal: Denies back pain or joint pain [] Integument: Denies rash or skin lesions [] Neurologic: Denies headache, focal weakness or sensory changes [] All other systems were reviewed and found to be within normal limits, except as documented in this note. (KUNAL RILEY APRN) Current Medications Current Medications Current Medications Medications (Trade) Dose Ordered Sig/Galilea Start Time Stop Time Status Last Admin Dose Admin Acetaminophen (Tylenol) 1,000 mg 1X ONCE 11/27/19 17:15 11/27/19 17:16 DC 11/27/19 17:31 1,000 MG Aspirin (Harleen Aspirin) 325 mg 1X ONCE 11/27/19 17:15 11/27/19 17:16 DC Fentanyl Citrate (Fentanyl 2ml Vial) 50 mcg 1X ONCE 11/27/19 17:15 11/27/19 17:16 DC 11/27/19 17:31 50 MCG Nitroglycerin (Nitrostat) 0.4 mg PRN Q5MIN PRN 11/27/19 17:15 11/27/19 20:30 DC (CRISTOBAL GRAHAM MD) Allergies Allergies Allergies Coded Allergies Type Severity Reaction Last Updated Verified Sulfa (Sulfonamide Antibiotics) Allergy Severe rash, tongue swelling 04/15/15 Yes Iodinated Contrast Media Allergy Intermediate rash 04/15/15 Yes Penicillins Allergy Intermediate Hives 04/15/15 Yes aspirin Allergy Intermediate Hives 04/15/15 Yes codeine Allergy Intermediate Hives; SEE COMMENT 06/08/15 Yes diphenhydramine HCl Allergy Intermediate rash 12/19/13 Yes latex Allergy Intermediate Rash 12/18/13 Yes (CRISTOBAL GRAHAM MD) Physical Exam Physical Exam Constitutional: Well developed, well nourished, no acute distress, non-toxic appearance. [] HENT: Normocephalic, atraumatic, bilateral external ears normal, oropharynx moist, no oral exudates, nose normal. [] Eyes: PERRLA, EOMI, conjunctiva normal, no discharge. [] Neck: Normal range of motion, no tenderness, supple, no stridor. [] Cardiovascular:Heart rate regular rhythm, no murmur [] Lungs & Thorax: Bilateral breath sounds clear to auscultation [] Abdomen: Bowel sounds normal, soft, diffuse tenderness throughout the abdomen, no point tenderness to the right upper quadrant, right lower quadrant, negative psoas sign, negative obturator sign, no guarding, no rebound tenderness, no masses, no pulsatile masses. [] Skin: Warm, dry, no erythema, no rash. [] Back: No tenderness, no CVA tenderness. [] Extremities: No tenderness, no cyanosis, no clubbing, ROM intact, no edema. [] Neurologic: Alert and oriented X 3, normal motor function, normal sensory function, no focal deficits noted. [] Psychologic: Affect normal, judgement normal, mood normal. [] (KUNAL RILEY APRN) Current Patient Data Vital Signs Vital Signs Date Time Temp Pulse Resp B/P (MAP) Pulse Ox O2 Delivery O2 Flow Rate FiO2 11/27/19 19:30 60 18 153/69 (97) 94 Room Air 11/27/19 16:52 97.9 97.9 (CRISTOBAL GRAHAM MD) Lab Values Laboratory Tests Test 11/27/19 17:30 11/27/19 18:20 White Blood Count 8.5 x10^3/uL (4.0-11.0) Red Blood Count 4.87 x10^6/uL (3.50-5.40) Hemoglobin 14.0 g/dL (12.0-15.5) Hematocrit 41.7 % (36.0-47.0) Mean Corpuscular Volume 86 fL (79-100) Mean Corpuscular Hemoglobin 29 pg (25-35) Mean Corpuscular Hemoglobin Concent 34 g/dL (31-37) Red Cell Distribution Width 14.3 % (11.5-14.5) Platelet Count 190 x10^3/uL (140-400) Neutrophils (%) (Auto) 71 % (31-73) Lymphocytes (%) (Auto) 19 % (24-48) L Monocytes (%) (Auto) 7 % (0-9) Eosinophils (%) (Auto) 1 % (0-3) Basophils (%) (Auto) 1 % (0-3) Neutrophils # (Auto) 6.0 x10^3/uL (1.8-7.7) Lymphocytes # (Auto) 1.6 x10^3/uL (1.0-4.8) Monocytes # (Auto) 0.6 x10^3/uL (0.0-1.1) Eosinophils # (Auto) 0.1 x10^3/uL (0.0-0.7) Basophils # (Auto) 0.1 x10^3/uL (0.0-0.2) Prothrombin Time 21.6 SEC (11.7-14.0) H Prothrombin Time INR 1.9 (0.8-1.1) H Sodium Level 143 mmol/L (136-145) Potassium Level 4.0 mmol/L (3.5-5.1) Chloride Level 106 mmol/L (98-107) Carbon Dioxide Level 25 mmol/L (21-32) Anion Gap 12 (6-14) Blood Urea Nitrogen 17 mg/dL (7-20) Creatinine 0.7 mg/dL (0.6-1.0) Estimated GFR (Cockcroft-Gault) 85.6 BUN/Creatinine Ratio 24 (6-20) H Glucose Level 88 mg/dL (70-99) Calcium Level 8.7 mg/dL (8.5-10.1) Magnesium Level 1.8 mg/dL (1.8-2.4) Total Bilirubin 0.2 mg/dL (0.2-1.0) Aspartate Amino Transferase (AST) 19 U/L (15-37) Alanine Aminotransferase (ALT) 23 U/L (14-59) Alkaline Phosphatase 76 U/L (46-116) Creatine Kinase 37 U/L (26-192) Creatine Kinase MB (Mass) 0.7 ng/mL (0.0-3.6) Creatine Kinase MB Relative Index % (0-4) Troponin I Quantitative < 0.017 ng/mL (0.000-0.055) IB-Tlo-Y-Type Natriuretic Peptide 222 pg/mL (0-124) H Total Protein 6.3 g/dL (6.4-8.2) L Albumin 3.4 g/dL (3.4-5.0) Albumin/Globulin Ratio 1.2 (1.0-1.7) Lipase 72 U/L (73-393) L Thyroid Stimulating Hormone (TSH) 1.146 uIU/mL (0.358-3.74) Urine Collection Type Unknown Urine Color Yellow Urine Clarity Clear Urine pH 6.5 (<5.0-8.0) Urine Specific Dresher 1.025 (1.000-1.030) Urine Protein Negative mg/dL (NEG-TRACE) Urine Glucose (UA) Negative mg/dL (NEG) Urine Ketones (Stick) Negative mg/dL (NEG) Urine Blood Negative (NEG) Urine Nitrite Negative (NEG) Urine Bilirubin Negative (NEG) Urine Urobilinogen Dipstick 1.0 mg/dL (0.2 mg/dL) Urine Leukocyte Esterase Negative (NEG) Urine RBC 0 /HPF (0-2) Urine WBC Occ /HPF (0-4) Urine Squamous Epithelial Cells Many /LPF Urine Bacteria Few /HPF (0-FEW) Urine Mucus Marked /LPF Urine Opiates Screen Neg (NEG) Urine Methadone Screen Neg (NEG) Urine Barbiturates Neg (NEG) Urine Phencyclidine Screen Neg (NEG) Urine Amphetamine/Methamphetamine Neg (NEG) Urine Benzodiazepines Screen Neg (NEG) Urine Cocaine Screen Neg (NEG) Urine Cannabinoids Screen Neg (NEG) Urine Ethyl Alcohol Neg (NEG) Laboratory Tests 11/27/19 17:30 Laboratory Tests 11/27/19 17:30 (CRISTOBAL GRAHAM MD) EKG EKG [address] Hussein sinus rhythm HR 65 no STEMI[] (KUNAL RILEY APRN) Radiology/Procedures Radiology/Procedures []PROCEDURE: CT ABDOMEN PELVIS WO CONTRAST CT abdomen pelvis without contrast dated 11/27/2019. Comparison made to 07/20/2019. CLINICAL INDICATION: Abdominal pain. TECHNIQUE: Contiguous axial imaging the M pelvis performed without the administration of IV or oral contrast. One or more of the following individualized dose reduction techniques were utilized for this examination: 1. Automated exposure control 2. Adjustment of the mA and/or kV according to patient size 3. Use of iterative reconstruction technique. FINDINGS: Limited images of lung bases show some patchy groundglass opacity in the lower lobes, nonspecific. Heart size mildly enlarged. No pleural or pericardial effusion. Evidence of prior aortic valve replacement. Prominent subxiphoid ventral hernia containing only fat. Solid abdominal viscera not well evaluated in the absence of contrast material. No apparent attenuation abnormality of the liver or spleen. Gallbladder is surgically absent. There is fatty replacement of the pancreas. Adrenal glands unremarkable. Kidneys are symmetric in size and attenuation. No calcific renal or ureteral stone. No hydronephrosis. Unopacified GI tract normal in caliber and contour. No focal bowel wall thickening. No inflammatory stranding in the mesentery. No ascites or lymphadenopathy. Abdominal aorta normal in caliber. There is a prominent infraumbilical ventral hernia containing only fat. Images of pelvis a nondistended urinary bladder. Uterus is surgically absent. No free pelvic fluid or pelvic lymphadenopathy. Borderline enlarged left inguinal lymph node, nonspecific. Bone windows show no acute findings. There is mild wedge compression deformity of T9 and T10, unchanged from prior study. Multilevel spondylosis. IMPRESSION: 1. No acute abnormality of abdomen or pelvis. No renal stone or hydronephrosis. 2. Prominent subxiphoid and infraumbilical ventral hernias containing only fat. 3. Status post cholecystectomy and hysterectomy. Electronically signed by: Efrem Odonnell MD (11/27/2019 6:02 PM) [id number] DICTATED and SIGNED BY: EFREM ODONNELL MD DATE: 11/27/191801 PROCEDURE: PORTABLE CHEST 1V Single view chest dated 11/27/2019. Comparison made to 11/20/2019. Clinical data indication: Chest pain. FINDINGS: Single upright portable exam performed. Heart and mediastinal contours are stable. Patient is status post median sternotomy. There is a dual lead left subclavian pacer in place, unchanged. Lungs are somewhat hyperinflated but otherwise clear. No consolidation or pleural effusion. No pneumothorax. IMPRESSION: No acute radiographic abnormality. Stable findings compared to 11/20/2019. Electronically signed by: Efrem Odonnell MD (11/27/2019 5:53 PM) [id number] DICTATED and SIGNED BY: EFREM ODONNELL MD DATE: 11/27/19 175 (KUNAL RILEY APRN) Course & Med Decision Making Course & Med Decision Making Pertinent Labs and Imaging studies reviewed. (See chart for details) This is a 59-year-old female patient presenting to the ED today with abdominal pain, nausea vomiting and diarrhea, symptoms began today. CBC, CMP, lipase and the rest of her work-up is negative for any acute findings. Patient was given IV fluids, nausea medicine, discharge to home. Instructed to follow-up with her own PCP or GI in 1 week. (KUNAL RILEY APRN) Dragon Disclaimer Dragon Disclaimer This electronic medical record was generated, in whole or in part, using a voice recognition dictation system. (KUNAL RILEY APRN) Departure Departure Impression: Primary Impression: Nausea vomiting and diarrhea Disposition: HOME, SELF-CARE Condition: STABLE Referrals: RUBIO CASTELLANOS (PCP) follow up in the course of this week Patient Instructions: Diet for Diarrhea, Adult, Nausea and Vomiting, Easy-to- Read Scripts Ondansetron (ONDANSETRON ODT) 4 Mg Tab.rapdis 1 TAB PO PRN Q6-8HRS, #16 TAB Prov: KUNAL RILEY APRN 11/27/19 Dicyclomine Hcl (DICYCLOMINE HCL) 20 Mg Tablet 1 TAB PO TID, #30 TAB 1 Refill Prov: KUNAL RILEY APRN 11/27/19 KUNAL RILEY APRN Nov 27, 2019 19:21 CRISTOBAL GRAHAM MD Nov 27, 2019 23:18
[2019-11-27 19:30] VITALS: BP 153/69
--- NOTE | 2019-11-28 06:20 | EKG ---
[facility] [address] [place] [address] Test Date: 2019-11-27 Test Time: 17:02:23 Pat Name: RHETT HERNANDEZ Department: Room: Gender: F Superintendent Operating: : 1960 Requested By: KUNAL RILEY Order Number: [id number] Reading MD: Measurements Intervals Simms Rate: 65 P: 34 ND: 182 QRS: 18 QRSD: 92 T: 49 QT: 444 QTc: 463 Interpretive Statements SINUS RHYTHM NO SPECIFIC ECG ABNORMALITIES RI6.01 No previous ECG available for comparison
== END 2019-11-27 19:40 | disposition home or self-care (01) ==
LOC: ER 16:35
DX: R11.2 Nausea with vomiting, unspecified (principal); R19.7 Diarrhea, unspecified; R10.84 Generalized abdominal pain; I48.91 Unspecified atrial fibrillation; F31.9 Bipolar disorder, unspecified; I10 Essential (primary) hypertension; I25.2 Old myocardial infarction; F20.9 Schizophrenia, unspecified; F41.9 Anxiety disorder, unspecified; Z86.73 Personal history of transient ischemic attack (TIA), and cerebral infarction without residual deficits; Z90.49 Acquired absence of other specified parts of digestive tract; Z95.0 Presence of cardiac pacemaker; Z88.2 Allergy status to sulfonamides; Z91.041 Radiographic dye allergy status; Z88.0 Allergy status to penicillin; Z88.5 Allergy status to narcotic agent; Z88.6 Allergy status to analgesic agent; Z91.040 Latex allergy status
CPT/HCPCS: 36415; 71045; 74176; 80053; 80307; 81001; 82553; 83690; 83735; 83880; 84443; 84484; 85025; 85610; 93005; 96374; 99285; J3010

== ENCOUNTER 2020-01-21 14:09 | Emergency (ER) | payer OTHER, MEDICAID ==
[~2020-01-21] VITALS: Ht 154.9 cm; Wt 90.0 kg
[~2020-01-21 14:09] MED LIST changes: -DICL100G18 TP; +DICL100G54 TP; +DICY20TA3 PO; -PREG50CA PO; +PREG50CA91 PO
[2020-01-21] MEDS ORDERED: IV NORMAL SALINE 1000ML BAG 1,000 ML IV ONE (14:45)
[2020-01-21 14:55] LABS: BASO % 1 % (0-3); EOS # 0.1 x10^3/uL (0.0-0.7); EOS % 2 % (0-3); HEMATOCRIT 41.2 % (36.0-47.0); HEMOGLOBIN 13.9 g/dL (12.0-15.5); LYMPH # 1.4 x10^3/uL (1.0-4.8); LYMPH % 26 % (24-48); MEAN CORPUSCULAR HEMOGLOBIN 29 pg (25-35); MEAN CORPUSCULAR HGB CONC 34 g/dL (31-37); MEAN CORPUSCULAR VOLUME 85 fL (79-100); MONO # 0.4 x10^3/uL (0.0-1.1); MONO % 9 % (0-9); NEUT # 3.2 x10^3/uL (1.8-7.7); NEUT % 63 % (31-73); PLATELET COUNT 179 x10^3/uL (140-400); RED BLOOD COUNT 4.86 x10^6/uL (3.50-5.40); RED CELL DISTRIBUTION WIDTH 14.6 % (11.5-14.5); WHITE BLOOD COUNT 5.2 x10^3/uL (4.0-11.0)
[2020-01-21 15:06] LABS: CALCIUM 8.6 mg/dL (8.5-10.1); CREATININE 0.9 mg/dL (0.6-1.0); GFR 64.1
[2020-01-21 15:12] LABS: ALBUMIN 3.3 g/dL (3.4-5.0); MAGNESIUM 1.9 mg/dL (1.8-2.4); TOTAL BILIRUBIN 0.2 mg/dL (0.2-1.0); TOTAL PROTEIN 6.6 g/dL (6.4-8.2)
[2020-01-21 15:37] LABS: BILIRUBIN,URINE NEGATIVE (NEG); CLARITY,URINE CLEAR; COLOR,URINE YELLOW
[2020-01-21 15:38] LABS: BARBITURATES NEG (NEG); BENZODIAZEPINES NEG (NEG); CANNABINOIDS NEG (NEG); COCAINE NEG (NEG); METHADONE NEG (NEG); NITRITE,URINE NEGATIVE (NEG); OPIATES NEG (NEG); PH,URINE 7.5 (<5.0-8.0); PHENCYCLIDINE NEG (NEG); PROTEIN,URINE NEGATIVE (NEG-TRACE); UROBILINOGEN,URINE 0.2 mg/dL (0.2 mg/dL)
[2020-01-21 15:39] LABS: AMORPHOUS SEDIMENT,UR PRESENT /HPF; BACTERIA,URINE FEW /HPF (0-FEW); RBC,URINE 0 /HPF (0-2); SQUAMOUS EPITHELIAL CELL,UR MOD /LPF; WBC,URINE 0 /HPF (0-4)
[2020-01-21 15:42] LABS: AMPHETAMINE/METHAMPHETAMINE NEG (NEG)
--- NOTE | 2020-01-21 16:32 | PHYS DOC ---
Past Medical History Past Medical History: A-Fib, Anxiety, Bipolar, CVA, Hypertension, [place], Renal Disease, Schizophrenia Additional Past Medical Histor: HALLUCINATIONS, AORTIC VALVE DISORDERS, mi 1996, kidney problems Past Surgical History: Cholecystectomy, Pacemaker Additional Past Surgical Histo: AVR, defibrillator Smoking Status: Never Smoker Alcohol Use: None Drug Use: None General Adult EDM: Chief Complaint: GENERALIZED BODY ACHES HPI: HPI: Patient is a 59-year-old female who is well-known to us here in the emergency department with multiple medical problems including many psychiatric issues. She presents today with pain all over. She denies any fever chills or sweats. She really cannot articulate exactly why she is here today. She is requesting pain medicine but is somnolent throughout the exam [] Review of Systems: Review of Systems: Constitutional: Denies fever or chills. [] Eyes: Denies change in visual acuity. [] HENT: Denies nasal congestion or sore throat. [] Respiratory: Denies cough or shortness of breath. [] Cardiovascular: Per HPI. [] GI: Reports abdominal pain a. [] : Denies dysuria. [] Musculoskeletal: Denies back pain or joint pain. [] Integument: Denies rash. [] Neurologic: Denies headache, focal weakness or sensory changes. [] Endocrine: Denies polyuria or polydipsia. [] Lymphatic: Denies swollen glands. [] Psychiatric: Depressed affect [] Heart Score: Risk Factors: Risk Factors: DM, Current or recent (<one month) smoker, HTN, HLP, family history of CAD, obesity. Risk Scores: Score 0 - 3: 2.5% MACE over next 6 weeks - Discharge Home Score 4 - 6: 20.3% MACE over next 6 weeks - Admit for Clinical Observation Score 7 - 10: 72.7% MACE over next 6 weeks - Early Invasive Strategies Current Medications: Current Medications Medications (Trade) Dose Ordered Sig/Galilea Start Time Stop Time Status Last Admin Dose Admin Sodium Chloride 1,000 ml @ 1,000 mls/hr 1X ONCE 01/21/20 14:45 01/21/20 15:44 DC 01/21/20 15:23 1,000 MLS/HR Allergies: Allergies: Allergies Coded Allergies Type Severity Reaction Last Updated Verified Sulfa (Sulfonamide Antibiotics) Allergy Severe rash, tongue swelling 04/15/15 Yes Iodinated Contrast Media Allergy Intermediate rash 04/15/15 Yes Penicillins Allergy Intermediate Hives 04/15/15 Yes aspirin Allergy Intermediate Hives 04/15/15 Yes codeine Allergy Intermediate Hives; SEE COMMENT 06/08/15 Yes diphenhydramine HCl Allergy Intermediate rash 12/19/13 Yes latex Allergy Intermediate Rash 12/18/13 Yes Physical Exam: PE: Constitutional: Well developed, well nourished, no acute distress, non-toxic appearance. [] HENT: Normocephalic, atraumatic, bilateral external ears normal, oropharynx moist, no oral exudates, nose normal. [] Eyes: PERRLA, EOMI, conjunctiva normal, no discharge. [] Neck: Normal range of motion, no tenderness, supple, no stridor. [] Cardiovascular:Heart rate regular rhythm, no murmur [] Lungs & Thorax: Bilateral breath sounds clear to auscultation [] Abdomen: Morbidly obese, bowel sounds normal, soft, no tenderness, no masses, no pulsatile masses. [] Skin: Warm, dry, no erythema, no rash. [] Back: No tenderness, no CVA tenderness. [] Extremities: No tenderness, no cyanosis, no clubbing, ROM intact, no edema. [] Neurologic: Alert and oriented X 3, normal motor function, normal sensory function, no focal deficits noted. [] Psychologic: Depressed affect [] Current Patient Data: Labs: Laboratory Tests Test 01/21/20 14:40 01/21/20 15:17 White Blood Count 5.2 x10^3/uL (4.0-11.0) Red Blood Count 4.86 x10^6/uL (3.50-5.40) Hemoglobin 13.9 g/dL (12.0-15.5) Hematocrit 41.2 % (36.0-47.0) Mean Corpuscular Volume 85 fL (79-100) Mean Corpuscular Hemoglobin 29 pg (25-35) Mean Corpuscular Hemoglobin Concent 34 g/dL (31-37) Red Cell Distribution Width 14.6 % (11.5-14.5) H Platelet Count 179 x10^3/uL (140-400) Neutrophils (%) (Auto) 63 % (31-73) Lymphocytes (%) (Auto) 26 % (24-48) Monocytes (%) (Auto) 9 % (0-9) Eosinophils (%) (Auto) 2 % (0-3) Basophils (%) (Auto) 1 % (0-3) Neutrophils # (Auto) 3.2 x10^3/uL (1.8-7.7) Lymphocytes # (Auto) 1.4 x10^3/uL (1.0-4.8) Monocytes # (Auto) 0.4 x10^3/uL (0.0-1.1) Eosinophils # (Auto) 0.1 x10^3/uL (0.0-0.7) Basophils # (Auto) 0.0 x10^3/uL (0.0-0.2) Sodium Level 144 mmol/L (136-145) Potassium Level 4.0 mmol/L (3.5-5.1) Chloride Level 106 mmol/L (98-107) Carbon Dioxide Level 32 mmol/L (21-32) Anion Gap 6 (6-14) Blood Urea Nitrogen 17 mg/dL (7-20) Creatinine 0.9 mg/dL (0.6-1.0) Estimated GFR (Cockcroft-Gault) 64.1 BUN/Creatinine Ratio 19 (6-20) Glucose Level 114 mg/dL (70-99) H Calcium Level 8.6 mg/dL (8.5-10.1) Magnesium Level 1.9 mg/dL (1.8-2.4) Total Bilirubin 0.2 mg/dL (0.2-1.0) Aspartate Amino Transferase (AST) 17 U/L (15-37) Alanine Aminotransferase (ALT) 23 U/L (14-59) Alkaline Phosphatase 80 U/L (46-116) Troponin I Quantitative < 0.017 ng/mL (0.000-0.055) Total Protein 6.6 g/dL (6.4-8.2) Albumin 3.3 g/dL (3.4-5.0) L Albumin/Globulin Ratio 1.0 (1.0-1.7) Lipase 86 U/L (73-393) Thyroid Stimulating Hormone (TSH) 1.806 uIU/mL (0.358-3.74) Ethyl Alcohol Level < 10 mg/dL (0-10) Urine Collection Type Unknown Urine Color Yellow Urine Clarity Clear Urine pH 7.5 (<5.0-8.0) Urine Specific [place] 1.015 (1.000-1.030) Urine Protein Negative mg/dL (NEG-TRACE) Urine Glucose (UA) Negative mg/dL (NEG) Urine Ketones (Stick) Negative mg/dL (NEG) Urine Blood Negative (NEG) Urine Nitrite Negative (NEG) Urine Bilirubin Negative (NEG) Urine Urobilinogen Dipstick 0.2 mg/dL (0.2 mg/dL) Urine Leukocyte Esterase Negative (NEG) Urine RBC 0 /HPF (0-2) Urine WBC 0 /HPF (0-4) Urine Squamous Epithelial Cells Mod /LPF Urine Transitional Epithelial Cells Occ /LPF Urine Amorphous Sediment Present /HPF Urine Bacteria Few /HPF (0-FEW) Urine Mucus Mod /LPF Urine Opiates Screen Neg (NEG) Urine Methadone Screen Neg (NEG) Urine Barbiturates Neg (NEG) Urine Phencyclidine Screen Neg (NEG) Urine Amphetamine/Methamphetamine Neg (NEG) Urine Benzodiazepines Screen Neg (NEG) Urine Cocaine Screen Neg (NEG) Urine Cannabinoids Screen Neg (NEG) Urine Ethyl Alcohol Neg (NEG) Laboratory Tests 01/21/20 14:40 Laboratory Tests 01/21/20 14:40 Vital Signs: Vital Signs Date Time Temp Pulse Resp B/P (MAP) Pulse Ox O2 Delivery O2 Flow Rate FiO2 01/21/20 14:30 98.1 71 16 176/85 (115) 94 Room Air 98.1 EKG: EKG: [] Radiology/Procedures: Radiology/Procedures: [] Course & Med Decision Making: Course & Med Decision Making Pertinent Labs and Imaging studies reviewed. (See chart for details) [ED course: Evaluation reveals a somnolent 59-year-old female who does not appear to be in any medical distress. We observed her for over an hour with no change hemodynamically. Patient is safe for discharge home.] Dragon Disclaimer: Dragon Disclaimer: This electronic medical record was generated, in whole or in part, using a voice recognition dictation system. Departure Departure Impression: Primary Impression: Abdominal pain Qualified Codes: R10.84 - Generalized abdominal pain Additional Impression: Generalized weakness Disposition: 01 HOME, SELF-CARE Condition: STABLE Referrals: NICOLE SMITH MD (PCP) Patient Instructions: Chronic Pain, Weakness Additional Instructions: Return to the emergency department with any new or concerning symptoms EMILY BUENO DO January 21, 2020 16:32
[2020-01-21 16:52] VITALS: BP 125/58
--- NOTE | 2020-01-22 07:01 | EKG ---
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
== END 2020-01-21 16:58 | disposition home or self-care (01) ==
LOC: ER 14:09
DX: R10.84 Generalized abdominal pain (principal); R53.1 Weakness; I48.20 Chronic atrial fibrillation, unspecified; F41.9 Anxiety disorder, unspecified; F31.9 Bipolar disorder, unspecified; I10 Essential (primary) hypertension; F20.9 Schizophrenia, unspecified; I25.2 Old myocardial infarction; Z90.49 Acquired absence of other specified parts of digestive tract; Z95.0 Presence of cardiac pacemaker; Z98.890 Other specified postprocedural states; Z88.2 Allergy status to sulfonamides; Z88.0 Allergy status to penicillin; Z88.5 Allergy status to narcotic agent; Z91.040 Latex allergy status; Z88.8 Allergy status to other drugs, medicaments and biological substances
CPT/HCPCS: 36415; 80053; 80307; 81001; 83690; 83735; 84443; 84484; 85025; 93005; 99284; G0480; J7030

== ENCOUNTER 2020-01-30 09:48 | Emergency (ER) | payer OTHER, MEDICAID ==
[~2020-01-30] VITALS: Ht 154.9 cm; Wt 91.0 kg
--- NOTE | 2020-01-30 09:58 | PHYS DOC ---
Past Medical History Past Medical History: A-Fib, Anxiety, Bipolar, CVA, Hypertension, CT, Renal Disease, Schizophrenia Additional Past Medical Histor: HALLUCINATIONS, AORTIC VALVE DISORDERS, mi 1996, kidney problems Past Surgical History: Cholecystectomy, Pacemaker Additional Past Surgical Histo: AVR, defibrillator Smoking Status: Never Smoker Alcohol Use: None Drug Use: None General Adult HPI: HPI: 59 yo F PMH CVA, afib and mechanical heart valve on couamdin, HTN, ACS, HTN, DM, schizophrenia, SSS with recent hospital discharge 2.5 weeks ago for chest pain (negative cath-noncardiac cp) presents to the ED brought in by EMS with c/o fall at home x2 just prior to arrival, concern for LOC on AC. Pt reports she was going outside to water her plants and c/o preceding dizziness, weakness and fatigue. States the prior 2 days had been planting for "hours outside," over 20 plants. Poor oral intake. Denies drug use. On arrival in ed has no dizziness but does report increased weakness and urinary frequency and dysuria. ROS: Patient denies associated fever, chills, cough, dyspnea, chest pain pressure tearing or ripping, hemoptysis, unilateral leg swelling, cough, sore throat, n/v/d/c, headache, neuro deficits, neck stiffness, blurry vision, saddle anesthesia or urinary or bowel retention or incontinence. Heart Score: HEART Score for Chest Pain: HEART Score for Chest Pain Response (Comments) Value History Slighlty/Non-Suspicious 0 ECG Normal 0 Age >45 - < 65 1 Risk Factors >3 Risk Factors or Hx CAD 2 Troponin < Normal Limit 0 Total 3 Risk Factors: Risk Factors: DM, Current or recent (<one month) smoker, HTN, HLP, family history of CAD, obesity. Risk Scores: Score 0 - 3: 2.5% MACE over next 6 weeks - Discharge Home Score 4 - 6: 20.3% MACE over next 6 weeks - Admit for Clinical Observation Score 7 - 10: 72.7% MACE over next 6 weeks - Early Invasive Strategies Allergies: Allergies: Allergies Coded Allergies Type Severity Reaction Last Updated Verified Sulfa (Sulfonamide Antibiotics) Allergy Severe rash, tongue swelling 04/15/15 Yes Iodinated Contrast Media Allergy Intermediate rash 04/15/15 Yes Penicillins Allergy Intermediate Hives 04/15/15 Yes aspirin Allergy Intermediate Hives 04/15/15 Yes codeine Allergy Intermediate Hives; SEE COMMENT 06/08/15 Yes diphenhydramine HCl Allergy Intermediate rash 12/19/13 Yes latex Allergy Intermediate Rash 12/18/13 Yes Physical Exam: PE: Constitutional: Well developed, well nourished, no acute distress, non-toxic a ppearance. [] HENT: Normocephalic, atraumatic, bilateral external ears normal, oropharynx moist, no oral exudates, nose normal. No signs of head trauma-no hematoma, nexus criteria negative Eyes: pupils dilated and reactive, EOMI, conjunctiva normal, no discharge, no nystagmus Neck: Normal range of motion, no tenderness, supple, no stridor. [] Cardiovascular:Heart rate regular rhythm, no murmur [] Lungs & Thorax: Bilateral breath sounds clear to auscultation [] Abdomen: Bowel sounds normal, soft, no tenderness, no masses, no pulsatile masses. [] Skin: Warm, dry, no erythema, no rash. [] Back: No tenderness, no CVA tenderness. [] Extremities: No tenderness, no cyanosis, no clubbing, ROM intact, no edema. [] Neurologic: Alert and oriented X 3, normal motor function, normal sensory function, no focal deficits noted, no ataxia, HINTS exan not performed-pt with no active dizziness Psychologic: Affect normal, judgement normal, mood normal. [] EKG: EKG: Sinus rhythm 62 bpm, QTC prolonged at 477, otherwise intervals are normal, ST segment depressions with T wave inversions V1 through V3, no ST elevations Radiology/Procedures: Radiology/Procedures: IMAGING REPORT Signed PATIENT: RHETT HERNANDEZ ACCOUNT: [id number] : 1960 LOCATION: ER AGE: 59 SEX: F EXAM STATUS: REG ER ORD. PHYSICIAN: ELSIE ARANDA DO REASON: sycnope PROCEDURE: CT HEAD AND CERVICAL SPINE WO CT head and cervical spine without contrast History: Syncope Technique: Noncontrast CT imaging was performed of the head and cervical spine. Multiplanar reconstruction images are submitted. Exposure: One or more of the following individualized dose reduction techniques were utilized for this examination: 1. Automated exposure control 2. Adjustment of the mA and/or kV according to patient size 3. Use of iterative reconstruction technique. Head CT Comparison: None Findings: No acute extra-axial or parenchymal hemorrhage is identified. There is no significant intra-axial mass effect, midline shift, or extra-axial fluid collection. The velázquez-white differentiation of the major vascular territories is preserved. Ventricular size is stable and proportionate to the sulcal spaces. There is again mild prominence of bifrontal subarachnoid spaces, may be due to involutional change or on developmental basis. The mastoid air cells and the visualized paranasal sinuses are mostly aerated other than likely mucus retention cyst of the medial left maxillary sinus about 1.2 cm. No acute calvarial abnormality is identified. Impression: 1. No acute intracranial abnormality is identified. Cervical spine CT Comparison: October 04, 2018 Findings: There is fairly significant motion degradation. No convincing acute cervical spine fracture is identified. Cervical vertebral body stature and AP alignment are unchanged. There is mild dextroscoliosis of the cervical spine. There is a 4 mm calcification of the posterior right thyroid gland as seen previously. Impression: 1. Allowing for motion, no convincing acute cervical spine fracture is identified. Electronically signed by: Lucien Tabares MD (01/30/2020 11:01 AM) [id number] DICTATED and SIGNED BY: LUCIEN TABARES MD DATE: 01/30/20 1101 IMAGING REPORT Signed PATIENT: RHETT HERNANDEZ ACCOUNT: [id number] : 1960 LOCATION: ER AGE: 59 SEX: F EXAM STATUS: PRE ER ORD. PHYSICIAN: ELSIE ARANDA DO REASON: cp PROCEDURE: PORTABLE CHEST 1V PORTABLE CHEST 1V INDICATION: Chest pain. COMPARISON STUDY: 01/08/2020. FINDINGS: Life Support Devices: Left pectoral pacemaker. Lungs: Low lung volume. No focal airspace disease. Normal pulmonary vasculature. Pleura: No pleural effusion or pneumothorax. Heart and Mediastinum: Cardiomegaly. Tortuous thoracic aorta. IMPRESSION: Low lung volume. No consolidation. Electronically signed by: Lucien Bob MD (01/30/2020 10:11 AM) [facility] DICTATED and SIGNED BY: LUCIEN BOB MD DATE: 01/30/20 1011 Impression: Impression: Concern for dizziness likely secondary to dehydration in the setting of overexertion the past few days, poor oral hydration. Orthostatics are unremarkable. Given recent admission with unremarkable cath, negative troponins, pt has no neuro deficits or associated chest pain or dyspnea, life threatening causes of syncope are considered although I have low suspicion for cardiac syncope vs neurologic stroke/central vertigo. Patient has been observed in the ER for 4 hours. Has no recurrent dizziness and has ambulated steady to the bathroom without assistance. CT imaging of the head and cervical spine without contrast showed no acute pathology. Patient with no headache, nausea or vomiting. Patient was given strict ED return precautions for recurrent syncope, head injury, neuro deficits, worsening headache or confusion. Encouraged urgent PMD follow-up for reevaluation in 24 to 48 hours. All of patient's questions were answered and she was stable at time of discharge. Course & Med Decision Making: Course & Med Decision Making Pertinent Labs and Imaging studies reviewed. (See chart for details) [] Dragon Disclaimer: Dragon Disclaimer: This electronic medical record was generated, in whole or in part, using a voice recognition dictation system. Departure Departure Impression: Primary Impression: Dizziness Additional Impression: Head injury, closed Disposition: HOME, SELF-CARE Condition: STABLE Referrals: NICOLE SMITH MD (PCP) Patient Instructions: Dizziness, Fall Prevention and Home Safety ELSIE ARANDA DO January 30, 2020 09:58
--- NOTE | 2020-01-30 10:14 | RAD ---
PORTABLE CHEST 1V INDICATION: Chest pain. COMPARISON STUDY: 01/08/2020. FINDINGS: Life Support Devices: Left pectoral pacemaker. Lungs: Low lung volume. No focal airspace disease. Normal pulmonary vasculature. Pleura: No pleural effusion or pneumothorax. Heart and Mediastinum: Cardiomegaly. Tortuous thoracic aorta. IMPRESSION: Low lung volume. No consolidation. Electronically signed by: Mario Bob MD (01/30/2020 10:11 AM) [facility]
[2020-01-30 10:47] LABS: BASO % 0 % (0-3); EOS # 0.1 x10^3/uL (0.0-0.7); EOS % 2 % (0-3); HEMATOCRIT 40.7 % (36.0-47.0); HEMOGLOBIN 13.7 g/dL (12.0-15.5); LYMPH # 1.4 x10^3/uL (1.0-4.8); LYMPH % 21 % (24-48); MEAN CORPUSCULAR HEMOGLOBIN 28 pg (25-35); MEAN CORPUSCULAR HGB CONC 34 g/dL (31-37); MEAN CORPUSCULAR VOLUME 85 fL (79-100); MONO # 0.5 x10^3/uL (0.0-1.1); MONO % 9 % (0-9); NEUT # 4.4 x10^3/uL (1.8-7.7); NEUT % 68 % (31-73); PLATELET COUNT 166 x10^3/uL (140-400); RED BLOOD COUNT 4.81 x10^6/uL (3.50-5.40); RED CELL DISTRIBUTION WIDTH 14.2 % (11.5-14.5); WHITE BLOOD COUNT 6.4 x10^3/uL (4.0-11.0)
[2020-01-30 10:51] LABS: CALCIUM 8.6 mg/dL (8.5-10.1); CREATININE 0.7 mg/dL (0.6-1.0); GFR 85.6; POTASSIUM 3.5 mmol/L (3.5-5.1)
--- NOTE | 2020-01-30 10:56 | EKG ---
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
[2020-01-30 10:57] LABS: ALBUMIN 3.2 g/dL (3.4-5.0); ALBUMIN/GLOBULIN RATIO 0.9 (1.0-1.7); MAGNESIUM 1.7 mg/dL (1.8-2.4); TOTAL BILIRUBIN 0.3 mg/dL (0.2-1.0); TOTAL PROTEIN 6.7 g/dL (6.4-8.2)
--- NOTE | 2020-01-30 11:04 | RAD ---
CT head and cervical spine without contrast History: Syncope Technique: Noncontrast CT imaging was performed of the head and cervical spine. Multiplanar reconstruction images are submitted. Exposure: One or more of the following individualized dose reduction techniques were utilized for this examination: 1. Automated exposure control 2. Adjustment of the mA and/or kV according to patient size 3. Use of iterative reconstruction technique. Head CT Comparison: None Findings: No acute extra-axial or parenchymal hemorrhage is identified. There is no significant intra-axial mass effect, midline shift, or extra-axial fluid collection. The velázquez-white differentiation of the major vascular territories is preserved. Ventricular size is stable and proportionate to the sulcal spaces. There is again mild prominence of bifrontal subarachnoid spaces, may be due to involutional change or on developmental basis. The mastoid air cells and the visualized paranasal sinuses are mostly aerated other than likely mucus retention cyst of the medial left maxillary sinus about 1.2 cm. No acute calvarial abnormality is identified. Impression: 1. No acute intracranial abnormality is identified. Cervical spine CT Comparison: October 04, 2018 Findings: There is fairly significant motion degradation. No convincing acute cervical spine fracture is identified. Cervical vertebral body stature and AP alignment are unchanged. There is mild dextroscoliosis of the cervical spine. There is a 4 mm calcification of the posterior right thyroid gland as seen previously. Impression: 1. Allowing for motion, no convincing acute cervical spine fracture is identified. Electronically signed by: Mario Suárez MD (01/30/2020 11:01 AM) [id number]
[2020-01-30 13:07] LABS: BILIRUBIN,URINE NEGATIVE (NEG); CLARITY,URINE CLEAR; COLOR,URINE YELLOW; NITRITE,URINE NEGATIVE (NEG); PROTEIN,URINE NEGATIVE (NEG-TRACE); UROBILINOGEN,URINE 0.2 mg/dL (0.2 mg/dL)
[2020-01-30 13:15] LABS: HYALINE CASTS, URINE FEW /HPF; SQUAMOUS EPITHELIAL CELL,UR MOD /LPF
[2020-01-30 13:16] LABS: AMORPHOUS SEDIMENT,UR PRESENT /HPF; BACTERIA,URINE FEW /HPF (0-FEW); RBC,URINE 0 /HPF (0-2)
[2020-01-30 14:20] VITALS: BP 113/75
== END 2020-01-30 14:35 | disposition home or self-care (01) ==
LOC: ER 09:48
DX: S09.8XXA Other specified injuries of head, initial encounter (principal); R42 Dizziness and giddiness; R55 Syncope and collapse; R53.1 Weakness; I48.20 Chronic atrial fibrillation, unspecified; F41.9 Anxiety disorder, unspecified; F31.9 Bipolar disorder, unspecified; I10 Essential (primary) hypertension; I25.2 Old myocardial infarction; I63.9 Cerebral infarction, unspecified; F20.9 Schizophrenia, unspecified; Z95.0 Presence of cardiac pacemaker; Z90.49 Acquired absence of other specified parts of digestive tract; Z98.890 Other specified postprocedural states; W18.39XA Other fall on same level, initial encounter; Y93.89 Activity, other specified; Y92.009 Unspecified place in unspecified non-institutional (private) residence as the place of occurrence of the external cause; Y99.8 Other external cause status
CPT/HCPCS: 36415; 70450; 71045; 72125; 80053; 81001; 83735; 84484; 85025; 93005; 99285

== ENCOUNTER 2020-04-23 18:20 | Inpatient (IN) | payer OTHER, MEDICAID ==
[~2020-04-23] VITALS: Ht 154.9 cm; Wt 92.8 kg
[~2020-04-23 18:20] MED LIST changes: -CETI10TA24 PO; +CETI10TA74 PO; -WARF-78 PO; +WARF5TAB2 PO
[2020-04-23 19:15] LABS: BILIRUBIN,URINE NEGATIVE (NEG); CLARITY,URINE CLEAR; COLOR,URINE YELLOW; NITRITE,URINE NEGATIVE (NEG); PROTEIN,URINE NEGATIVE (NEG-TRACE); UROBILINOGEN,URINE 0.2 mg/dL (0.2 mg/dL)
[2020-04-23 19:22] LABS: BARBITURATES NEG (NEG); BENZODIAZEPINES NEG (NEG); CANNABINOIDS NEG (NEG); COCAINE NEG (NEG); METHADONE NEG (NEG); OPIATES NEG (NEG); PHENCYCLIDINE NEG (NEG)
[2020-04-23 19:25] LABS: HYALINE CASTS, URINE FEW /HPF; SQUAMOUS EPITHELIAL CELL,UR MANY /LPF
[2020-04-23 19:26] LABS: BACTERIA,URINE MODERATE /HPF (0-FEW)
[2020-04-23 19:28] LABS: AMPHETAMINE/METHAMPHETAMINE NEG (NEG)
--- NOTE | 2020-04-23 19:36 | PHYS DOC ---
Past Medical History Past Medical History: A-Fib, Anxiety, Bipolar, CVA, Hypertension, [place], Renal Disease, Schizophrenia Additional Past Medical Histor: HALLUCINATIONS, AORTIC VALVE DISORDERS, mi 1996, kidney problems Past Surgical History: Cholecystectomy, Pacemaker Additional Past Surgical Histo: AVR, defibrillator Smoking Status: Former Smoker Alcohol Use: None Drug Use: None General Adult EDM: Chief Complaint: HALLUCINATIONS AUDIBLE/VISUAL HPI: HPI: Patient is a 59 year old female who presents with chronic depression that is worse over the last week. Patient has vague suicidal ideation. Patient denies any physical complaints at this time. There is no pain. No fevers chills cough vomiting diarrhea or urinary symptoms. Review of Systems: Review of Systems: Constitutional: Denies fever or chills. [] Eyes: Denies change in visual acuity. [] HENT: Denies nasal congestion or sore throat. [] Respiratory: Denies cough or shortness of breath. [] Cardiovascular: Denies chest pain or edema. [] GI: Denies abdominal pain, nausea, vomiting, bloody stools or diarrhea. [] : Denies dysuria. [] Musculoskeletal: Denies back pain or joint pain. [] Integument: Denies rash. [] Neurologic: Denies headache, focal weakness or sensory changes. [] Endocrine: Denies polyuria or polydipsia. [] Lymphatic: Denies swollen glands. [] Psychiatric: Complains of depression and suicidal ideation Heart Score: Risk Factors: Risk Factors: DM, Current or recent (<one month) smoker, HTN, HLP, family history of CAD, obesity. Risk Scores: Score 0 - 3: 2.5% MACE over next 6 weeks - Discharge Home Score 4 - 6: 20.3% MACE over next 6 weeks - Admit for Clinical Observation Score 7 - 10: 72.7% MACE over next 6 weeks - Early Invasive Strategies Allergies: Allergies: Allergies Coded Allergies Type Severity Reaction Last Updated Verified Sulfa (Sulfonamide Antibiotics) Allergy Severe rash, tongue swelling 04/15/15 Yes Iodinated Contrast Media Allergy Intermediate rash 04/15/15 Yes Penicillins Allergy Intermediate Hives 04/15/15 Yes aspirin Allergy Intermediate Hives 04/15/15 Yes codeine Allergy Intermediate Hives; SEE COMMENT 06/08/15 Yes diphenhydramine HCl Allergy Intermediate rash 12/19/13 Yes latex Allergy Intermediate Rash 12/18/13 Yes Physical Exam: PE: Constitutional: Well developed, well nourished, no acute distress, non-toxic appearance. HENT: No trismus, external ears normal Eyes: Conjunctiva clear, EOMI Neck: Normal range of motion, no tenderness, supple, no stridor. Cardiovascular: Regular rate/rhythm, peripheral pulse intact, [employer] intact Lungs & Thorax: No respiratory distress Abdomen: No distension Skin: Diffuse: Intact, no rash Back: Full ROM Extremities: Normal inspection, no edema Neurologic: Alert and oriented X 3, normal motor function, , no focal deficits noted. Psychologic: Depressed mood and flat affect Current Patient Data: Labs: Laboratory Tests Test 04/23/20 19:05 04/23/20 19:40 Urine Collection Type Unknown Urine Color Yellow Urine Clarity Clear Urine pH 6.0 Urine Specific [place] 1.025 Urine Protein Negative mg/dL Urine Glucose (UA) Negative mg/dL Urine Ketones (Stick) Trace mg/dL Urine Blood Negative Urine Nitrite Negative Urine Bilirubin Negative Urine Urobilinogen Dipstick 0.2 mg/dL Urine Leukocyte Esterase Negative Urine RBC 3-5 /HPF Urine WBC 1-4 /HPF Urine Squamous Epithelial Cells Many /LPF Urine Bacteria Moderate /HPF Urine Hyaline Casts Few /HPF Urine Mucus Marked /LPF Urine Opiates Screen Neg Urine Methadone Screen Neg Urine Barbiturates Neg Urine Phencyclidine Screen Neg Urine Amphetamine/Methamphetamine Neg Urine Benzodiazepines Screen Neg Urine Cocaine Screen Neg Urine Cannabinoids Screen Neg Urine Ethyl Alcohol Neg White Blood Count 6.2 x10^3/uL Red Blood Count 4.63 x10^6/uL Hemoglobin 13.5 g/dL Hematocrit 39.4 % Mean Corpuscular Volume 85 fL Mean Corpuscular Hemoglobin 29 pg Mean Corpuscular Hemoglobin Concent 34 g/dL Red Cell Distribution Width 14.3 % Platelet Count 145 x10^3/uL Neutrophils (%) (Auto) 68 % Lymphocytes (%) (Auto) 22 % Monocytes (%) (Auto) 8 % Eosinophils (%) (Auto) 2 % Basophils (%) (Auto) 0 % Neutrophils # (Auto) 4.2 x10^3/uL Lymphocytes # (Auto) 1.4 x10^3/uL Monocytes # (Auto) 0.5 x10^3/uL Eosinophils # (Auto) 0.1 x10^3/uL Basophils # (Auto) 0.0 x10^3/uL Prothrombin Time 37.3 SEC Prothromb Time International Ratio 3.7 Activated Partial Thromboplast Time 51 SEC Sodium Level 143 mmol/L Potassium Level 3.8 mmol/L Chloride Level 108 mmol/L Carbon Dioxide Level 27 mmol/L Anion Gap 8 Blood Urea Nitrogen 17 mg/dL Creatinine 0.7 mg/dL Estimated GFR (Cockcroft-Gault) 85.6 BUN/Creatinine Ratio 24 Glucose Level 96 mg/dL Calcium Level 8.6 mg/dL Total Bilirubin 0.2 mg/dL Aspartate Amino Transf (AST/SGOT) 13 U/L Alanine Aminotransferase (ALT/SGPT) 20 U/L Alkaline Phosphatase 70 U/L Total Protein 6.4 g/dL Albumin 3.0 g/dL Albumin/Globulin Ratio 0.9 Thyroid Stimulating Hormone (TSH) 1.367 uIU/mL Ethyl Alcohol Level < 10 mg/dL Laboratory Tests Test 04/23/20 19:05 Urine Collection Type Unknown Urine Color Yellow Urine Clarity Clear Urine pH 6.0 (<5.0-8.0) Urine Specific [place] 1.025 (1.000-1.030) Urine Protein Negative mg/dL (NEG-TRACE) Urine Glucose (UA) Negative mg/dL (NEG) Urine Ketones (Stick) Trace mg/dL (NEG) Urine Blood Negative (NEG) Urine Nitrite Negative (NEG) Urine Bilirubin Negative (NEG) Urine Urobilinogen Dipstick 0.2 mg/dL (0.2 mg/dL) Urine Leukocyte Esterase Negative (NEG) Urine RBC 3-5 /HPF (0-2) Urine WBC 1-4 /HPF (0-4) Urine Squamous Epithelial Cells Many /LPF Urine Bacteria Moderate /HPF (0-FEW) Urine Hyaline Casts Few /HPF Urine Mucus Marked /LPF Urine Opiates Screen Neg (NEG) Urine Methadone Screen Neg (NEG) Urine Barbiturates Neg (NEG) Urine Phencyclidine Screen Neg (NEG) Urine Amphetamine/Methamphetamine Neg (NEG) Urine Benzodiazepines Screen Neg (NEG) Urine Cocaine Screen Neg (NEG) Urine Cannabinoids Screen Neg (NEG) Urine Ethyl Alcohol Neg (NEG) Vital Signs: Vital Signs Date Time Temp Pulse Resp B/P (MAP) Pulse Ox O2 Delivery O2 Flow Rate FiO2 04/23/20 18:55 97.7 89 20 153/70 (97) 94 Room Air 97.7 EKG: EKG: [] EKG interpreted by me normal sinus rhythm with rate of 66 normal axis normal intervals normal ST segments Radiology/Procedures: Radiology/Procedures: [] Course & Med Decision Making: Course & Med Decision Making Pertinent Labs and Imaging studies reviewed. (See chart for details) [] Patient is depressed with suicidal ideation and thoughts of hanging herself. Patient will need a COVID test before inpatient psychiatric placement. That cannot be done tonight. Patient will be admitted to Dr.KODURI Ruffin Disclaimer: Augustin Disclaimer: This electronic medical record was generated, in whole or in part, using a voice recognition dictation system. Departure Departure Impression: Primary Impression: Depression Additional Impression: Suicidal ideation Disposition: ADMITTED INPATIENT Admitting Physician: Nicole Smith Condition: STABLE Referrals: NICOLE SMITH MD (PCP) Justicifation of Admission Dx: Justifications for Admission: Justification of Admission Dx: Yes MO ROBERTS MD Apr 23, 2020 19:36
[2020-04-23 19:54] LABS: BASO % 0 % (0-3); EOS # 0.1 x10^3/uL (0.0-0.7); EOS % 2 % (0-3); HEMATOCRIT 39.4 % (36.0-47.0); HEMOGLOBIN 13.5 g/dL (12.0-15.5); LYMPH # 1.4 x10^3/uL (1.0-4.8); LYMPH % 22 % (24-48); MEAN CORPUSCULAR HEMOGLOBIN 29 pg (25-35); MEAN CORPUSCULAR HGB CONC 34 g/dL (31-37); MEAN CORPUSCULAR VOLUME 85 fL (79-100); MONO # 0.5 x10^3/uL (0.0-1.1); MONO % 8 % (0-9); NEUT # 4.2 x10^3/uL (1.8-7.7); NEUT % 68 % (31-73); PLATELET COUNT 145 x10^3/uL (140-400); RED BLOOD COUNT 4.63 x10^6/uL (3.50-5.40); RED CELL DISTRIBUTION WIDTH 14.3 % (11.5-14.5); WHITE BLOOD COUNT 6.2 x10^3/uL (4.0-11.0)
[2020-04-23 20:05] LABS: CALCIUM 8.6 mg/dL (8.5-10.1); CREATININE 0.7 mg/dL (0.6-1.0); GFR 85.6; POTASSIUM 3.8 mmol/L (3.5-5.1)
[2020-04-23 20:11] LABS: ALBUMIN/GLOBULIN RATIO 0.9 (1.0-1.7); TOTAL BILIRUBIN 0.2 mg/dL (0.2-1.0); TOTAL PROTEIN 6.4 g/dL (6.4-8.2)
[2020-04-23 20:45] LABS: PROTHROMBIN TIME PATIENT 37.3 SEC (11.7-14.0)
[2020-04-23 23:15] VITALS: BP 155/72
[2020-04-24] MEDS: MIRTAZAPINE 15 MG TABLET PO SCH ×2 (00:11→20:27)
[2020-04-24] MEDS: DIVALPROEX DELAYED RELEASE 500 MG TABLET.DR. PO SCH ×3 (00:11→20:27)
[2020-04-24] MEDS: ATORVASTATIN CALCIUM 10 MG TABLET. PO SCH ×2 (00:11→20:27)
[2020-04-24] MEDS: BENZTROPINE MESYLATE 1 MG TABLET. PO SCH ×3 (00:11→20:27)
[2020-04-24] MEDS: traZODone 50 MG TABLET. PO SCH ×2 (00:11→20:27)
[2020-04-24] MEDS: OLANZapine 5 MG TABLET PO SCH ×2 (00:11→20:27)
[2020-04-24] MEDS: traMADol 50 MG TABLET PO PRN ×2 (00:51→20:41)
[2020-04-24 04:19] VITALS: BP 159/71
[2020-04-24 04:46] LABS: PROTHROMBIN TIME PATIENT 31.3 SEC (11.7-14.0)
[2020-04-24 05:36] LABS: VAL ACID 25 mcg/mL (50-100)
[2020-04-24 07:01] VITALS: BP 146/65
--- NOTE | 2020-04-24 09:01 | PDOC ---
PROGRESS NOTES Date of Service: DATE: 04/24/20 TIME: 09:01 Objective Objective Vital Signs Date Time Temp Pulse Resp B/P (MAP) Pulse Ox O2 Delivery O2 Flow Rate FiO2 04/24/20 07:01 97.7 60 18 146/65 (92) 95 Room Air 97.7 Intake and Output 04/24/20 07:00 Intake Total 720 ml Output Total 250 ml Balance 470 ml Intake Oral 720 ml Output Urine Total 250 ml Physical Exam MUSCULOSKELETAL: Osteoarthritic changes both hands Diagnosis Problem List Problems Medical Problems: (1) Depression Status: Acute (2) Suicidal ideation Status: Acute Assessment Assessment Problems Medical Problems: (1) Depression Status: Acute (2) Suicidal ideation Status: Acute Plan Plan of Care Problems Medical Problems: (1) Depression Status: Acute (2) Suicidal ideation Status: Acute Comment Review of Relevant I have reviewed the following items yonathan (where applicable) has been applied. Labs Laboratory Tests Test 04/23/20 19:05 04/23/20 19:40 04/24/20 04:10 Urine Collection Type Unknown Urine Color Yellow Urine Clarity Clear Urine pH 6.0 (<5.0-8.0) Urine Specific [place] 1.025 (1.000-1.030) Urine Protein Negative mg/dL (NEG-TRACE) Urine Glucose (UA) Negative mg/dL (NEG) Urine Ketones (Stick) Trace mg/dL (NEG) Urine Blood Negative (NEG) Urine Nitrite Negative (NEG) Urine Bilirubin Negative (NEG) Urine Urobilinogen Dipstick 0.2 mg/dL (0.2 mg/dL) Urine Leukocyte Esterase Negative (NEG) Urine RBC 3-5 /HPF (0-2) Urine WBC 1-4 /HPF (0-4) Urine Squamous Epithelial Cells Many /LPF Urine Bacteria Moderate /HPF (0-FEW) Urine Hyaline Casts Few /HPF Urine Mucus Marked /LPF Urine Opiates Screen Neg (NEG) Urine Methadone Screen Neg (NEG) Urine Barbiturates Neg (NEG) Urine Phencyclidine Screen Neg (NEG) Urine Amphetamine/Methamphetamine Neg (NEG) Urine Benzodiazepines Screen Neg (NEG) Urine Cocaine Screen Neg (NEG) Urine Cannabinoids Screen Neg (NEG) Urine Ethyl Alcohol Neg (NEG) White Blood Count 6.2 x10^3/uL (4.0-11.0) Red Blood Count 4.63 x10^6/uL (3.50-5.40) Hemoglobin 13.5 g/dL (12.0-15.5) Hematocrit 39.4 % (36.0-47.0) Mean Corpuscular Volume 85 fL (79-100) Mean Corpuscular Hemoglobin 29 pg (25-35) Mean Corpuscular Hemoglobin Concent 34 g/dL (31-37) Red Cell Distribution Width 14.3 % (11.5-14.5) Platelet Count 145 x10^3/uL (140-400) Neutrophils (%) (Auto) 68 % (31-73) Lymphocytes (%) (Auto) 22 % (24-48) Monocytes (%) (Auto) 8 % (0-9) Eosinophils (%) (Auto) 2 % (0-3) Basophils (%) (Auto) 0 % (0-3) Neutrophils # (Auto) 4.2 x10^3/uL (1.8-7.7) Lymphocytes # (Auto) 1.4 x10^3/uL (1.0-4.8) Monocytes # (Auto) 0.5 x10^3/uL (0.0-1.1) Eosinophils # (Auto) 0.1 x10^3/uL (0.0-0.7) Basophils # (Auto) 0.0 x10^3/uL (0.0-0.2) Prothrombin Time 37.3 SEC (11.7-14.0) 31.3 SEC (11.7-14.0) Prothromb Time International Ratio 3.7 (0.8-1.1) 3.0 (0.8-1.1) Activated Partial Thromboplast Time 51 SEC (24-38) Sodium Level 143 mmol/L (136-145) Potassium Level 3.8 mmol/L (3.5-5.1) Chloride Level 108 mmol/L (98-107) Carbon Dioxide Level 27 mmol/L (21-32) Anion Gap 8 (6-14) Blood Urea Nitrogen 17 mg/dL (7-20) Creatinine 0.7 mg/dL (0.6-1.0) Estimated GFR (Cockcroft-Gault) 85.6 BUN/Creatinine Ratio 24 (6-20) Glucose Level 96 mg/dL (70-99) Calcium Level 8.6 mg/dL (8.5-10.1) Total Bilirubin 0.2 mg/dL (0.2-1.0) Aspartate Amino Transf (AST/SGOT) 13 U/L (15-37) Alanine Aminotransferase (ALT/SGPT) 20 U/L (14-59) Alkaline Phosphatase 70 U/L (46-116) Total Protein 6.4 g/dL (6.4-8.2) Albumin 3.0 g/dL (3.4-5.0) Albumin/Globulin Ratio 0.9 (1.0-1.7) Thyroid Stimulating Hormone (TSH) 1.367 uIU/mL (0.358-3.74) Ethyl Alcohol Level < 10 mg/dL (0-10) Valproic Acid (Depakene) Level 25 mcg/mL (50-100) Valproic Acid Last Dose Date 04/23/20 Valproic Acid Last Dose Time 0900 Medications Current Medications Atorvastatin Calcium (Lipitor) 10 mg QHS PO Last administered on 04/24/20at 00:11; Start 04/24/20 at 00:00 Benztropine Mesylate (Cogentin) 1 mg BID PO Last administered on 04/24/20at 00:11; Start 04/24/20 at 00:00 Divalproex Sodium (Depakote) 500 mg BID PO Last administered on 04/24/20at 0 0:11; Start 04/24/20 at 00:00 Fluoxetine HCl (PROzac) 40 mg DAILY PO ; Start 04/24/20 at 09:00 Furosemide (Lasix) 40 mg DAILY PO ; Start 04/24/20 at 09:00 Isosorbide Mononitrate (Imdur) 30 mg DAILY PO ; Start 04/24/20 at 09:00 Lisinopril (Prinivil) 20 mg DAILY PO ; Start 04/24/20 at 09:00 Mirtazapine (Remeron) 30 mg HS PO Last administered on 04/24/20at 00:11; Start 04/24/20 at 00:00 Olanzapine (ZyPREXA) 15 mg QHS PO Last administered on 04/24/20at 00:11; Start 04/24/20 at 00:00 Pantoprazole Sodium (Protonix) 40 mg BIDAC PO ; Start 04/24/20 at 07:30 Potassium Chloride (Klor-Con) 20 meq DAILYWBKFT PO ; Start 04/24/20 at 08:00 Tramadol HCl (Ultram) 50 mg PRN Q6HRS PRN PO PAIN Last administered on 04/24/20at 00:51; Start 04/24/20 at 00:15 Trazodone HCl (Desyrel) 50 mg HS PO Last administered on 04/24/20at 00:11; Start 04/24/20 at 00:00 Warfarin Sodium (Coumadin Per Physician) 1 each PRN DAILY PRN MC SEE COMMENTS; Start 04/24/20 at 16:00 Warfarin Sodium (Coumadin) 5 mg DAILY16 PO ; Start 04/24/20 at 16:00 Vitals/I & O Vital Sign - Last 24 Hours 04/23/20 04/23/20 04/23/20 04/23/20 18:55 19:51 20:21 21:30 Temp 97.7 97.7 Pulse 89 64 64 62 Resp 20 20 B/P (MAP) 153/70 (97) 171/79 (109) 163/72 (102) 158/70 (99) Pulse Ox 94 94 94 94 O2 Delivery Room Air Room Air Room Air Room Air 04/23/20 04/23/20 04/23/20 04/24/20 22:30 22:50 23:15 00:51 Temp 97.9 97.9 Pulse 60 60 Resp 20 16 B/P (MAP) 158/68 (98) 155/72 (99) Pulse Ox 93 94 O2 Delivery Room Air Room Air Room Air Room Air 04/24/20 04/24/20 04/24/20 04/24/20 01:51 03:00 04:19 07:01 Temp 97.3 97.7 97.3 97.7 Pulse 60 60 Resp 16 18 B/P (MAP) 159/71 (100) 146/65 (92) Pulse Ox 94 95 O2 Delivery Room Air Room Air Room Air Intake and Output 04/23/20 04/23/20 04/24/20 15:00 23:00 07:00 Intake Total 720 ml Output Total 250 ml Balance 470 ml Justicifation of Admission Dx: Justifications for Admission: Justification of Admission Dx: Yes NICOLE SMITH MD Apr 24, 2020 09:01
[2020-04-24 10:47] VITALS: BP 134/72
[2020-04-24] MEDS: LISINOPRIL 20 MG TABLET PO SCH (11:16)
[2020-04-24] MEDS: PANTOPRAZOLE 40 MG TABLET.DR. PO SCH ×2 (11:16→15:55)
[2020-04-24] MEDS: FLUoxetine HCL 20 MG CAPSULE PO SCH (11:16)
[2020-04-24] MEDS: POTASSIUM CHLORIDE 20 MEQ TABLET.ER. PO SCH (11:17)
[2020-04-24] MEDS: ISOSORBIDE MONONITRATE ER 30 MG TAB.ER.24H PO SCH (11:17)
[2020-04-24] MEDS: FUROSEMIDE 40 MG TABLET. PO SCH (11:40)
[2020-04-24 14:49] VITALS: BP 132/71
[2020-04-24] MEDS: WARFARIN 5 MG TABLET. PO SCH (15:55)
--- NOTE | 2020-04-24 17:35 | PDOC ---
Provider Note Provider Note Pt seen.H&P dictated.#[id number]. Justicifation of Admission Dx: Justifications for Admission: Justification of Admission Dx: Yes NICOLE SMITH MD Apr 24, 2020 17:35
--- NOTE | 2020-04-24 17:40 | NUR ---
SW following. Reviewed chart and discussed with RN. Pt on 1:1 for SI. Referral to [facility] with PAT team. Spoke with Eric who is waiting to see pt as pt is COIVD pending. Dr. Umaña to evaluate. PADMINI to follow. Addendum: 04/24/20 at 1742 by KE [place] SW contacted by RN who stated pt seen by Dr. Umaña and can transfer to [facility] for admissions and will follow up tomorrow, 04/25/2020.
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
--- NOTE | 2020-04-24 18:40 | HP ---
ADMIT DATE: 04/23/2020 LOCATION: 1. REASON FOR ADMISSION TO THE HOSPITAL: Hallucinations, depression, and vague suicidal ideation. HISTORY OF PRESENT ILLNESS: The patient is a 59-year-old female with a history of bipolar, depression, has a suicidal ideation, is getting worse. The patient was seen in the Emergency Room. CT and laboratory data were unremarkable. The patient was admitted to be transferred to inpatient psychiatric hospital pending COVID test. PAST MEDICAL HISTORY: Anxiety, bipolar, schizophrenia, atrial fibrillation, hypertension, hyperlipidemia, and COPD. PAST SURGICAL HISTORY: Had an aortic valve replacement, mechanical valve, pacemaker, had a cardiac cath this year with no blockages, gallbladder surgery. PERSONAL HISTORY: Former smoker. Denies alcohol. The patient is on tramadol for pain. FAMILY HISTORY: Lives with her . History of psychiatric problems and heart problems. ALLERGIES: CONTRAST, PENICILLIN, SULFA, CODEINE, LATEX, BENADRYL, AND ASPIRIN. MEDICATIONS AT HOME: The patient is on a bunch of medications; atorvastatin 10 mg daily, benztropine 1 mg twice a day, Depakote 500 mg twice a day, fluoxetine 40 mg daily, furosemide 40 mg daily, isosorbide 30 mg daily, lisinopril 20 mg daily, mirtazapine 30 mg daily, Zyprexa 15 mg at bedtime, pantoprazole 40 mg twice a day, potassium 20 mEq daily, trazodone 50 mg daily, Coumadin 5 mg daily, and Zofran for nausea. REVIEW OF SYSTEMS: Denies any chest pain or shortness of breath. Denies swelling of the legs. Rest of the 14-system was reviewed and negative. PHYSICAL EXAMINATION: VITAL SIGNS: At the time of admission shows temperature 98, pulse 70, respirations 20, blood pressure 159/70, 95% on room air. HEENT: Head is atraumatic. Pupils, left pupil is dilated and fixed from previous stroke. CARDIOVASCULAR: S1 and S2. LUNGS: Clear, has a metallic click because of the mechanical heart valve in the aorta. Clear to auscultation. ABDOMEN: Soft, bowel sounds present, no masses palpable. EXTERNAL GENITALIA: No Siu. RECTAL: Deferred. EXTREMITIES: No calf tenderness, no edema. Pulses 1+. NEUROLOGIC: Moving all extremities. No focal deficits noted. LABORATORY DATA: Shows a white count of 6, hemoglobin 13, platelets 145. INR 3.7, today 3.0. Electrolytes show sodium 143, potassium 3.8, chloride 108, bicarb 27, BUN 17, creatinine 0.7, glucose 96. LFTs were normal. TSH 1.3. Urine negative. Toxicology negative. Valproic acid 25, which is low. FINAL IMPRESSION: 1. Hallucinations. 2. Suicidal ideation. 3. Chronic history of schizophrenia, bipolar. 4. Coronary artery disease, stable. 5. History of mechanical aortic valve, on Coumadin. INR is therapeutic. 6. History of pacemaker for sick sinus syndrome. 7. Hypertension. 8. Hyperlipidemia. PLAN: At this time, was admit to hospital, one-to-one observation. Psychiatry was consulted. COVID test is done, report is pending and once it is negative, she can go to inpatient psychiatric facility. NICOLE SMITH MD DR: ISAMAR/cori JOB#: [id number] / [id number]
[2020-04-24 19:11] VITALS: BP 109/55
[2020-04-24 23:04] VITALS: BP 143/69
[2020-04-25 03:02] VITALS: BP 156/73
[2020-04-25 07:01] VITALS: BP 140/65
[2020-04-25] MEDS: DIVALPROEX DELAYED RELEASE 500 MG TABLET.DR. PO SCH (08:48)
[2020-04-25] MEDS: LISINOPRIL 20 MG TABLET PO SCH (08:49)
[2020-04-25] MEDS: ISOSORBIDE MONONITRATE ER 30 MG TAB.ER.24H PO SCH (08:49)
[2020-04-25] MEDS: BENZTROPINE MESYLATE 1 MG TABLET. PO SCH (08:49)
[2020-04-25] MEDS: FUROSEMIDE 40 MG TABLET. PO SCH (08:49)
[2020-04-25] MEDS: POTASSIUM CHLORIDE 20 MEQ TABLET.ER. PO SCH (08:50)
[2020-04-25] MEDS: PANTOPRAZOLE 40 MG TABLET.DR. PO SCH ×2 (08:50→16:08)
--- NOTE | 2020-04-25 08:52 | PDOC ---
PROGRESS NOTES Date of Service: DATE: 04/25/20 TIME: 08:50 Subjective Subjective sleepy this morning Objective Objective Vital Signs Date Time Temp Pulse Resp B/P (MAP) Pulse Ox O2 Delivery O2 Flow Rate FiO2 04/25/20 07:01 97.7 56 16 140/65 (90) 93 Room Air 97.7 Intake and Output 04/25/20 07:00 Intake Total 1000 ml Output Total 1400 ml Balance -400 ml Intake Oral 1000 ml Output Urine Total 1400 ml # Voids 2 Physical Exam Abdomen: Normal bowel sounds, Soft Heart: Regular rate, Normal S1 HEENT: Atraumatic Lungs: Clear to auscultation MUSCULOSKELETAL: Osteoarthritic changes both hands Neck: Supple Skin: No breakdown Diagnosis Problem List Problems Medical Problems: (1) Depression Status: Acute (2) Suicidal ideation Status: Acute Assessment Assessment Problems Medical Problems: (1) Depression Status: Acute (2) Suicidal ideation Status: Acute FINAL IMPRESSION: 1. Hallucinations. 2. Suicidal ideation. 3. Chronic history of schizophrenia, bipolar. 4. Coronary artery disease, stable. 5. History of mechanical aortic valve, on Coumadin. INR is therapeutic. 6. History of pacemaker for sick sinus syndrome. 7. Hypertension. 8. Hyperlipidemia. PLAN: covid -neg. labs good inr 3.0 d/c to inpatient psychiatry hospital today. At this time, was admit to hospital, one-to-one observation. Psychiatry was consulted. COVID test is done, report is pending and once it is negative, she can go to inpatient psychiatric facility. Plan Plan of Care Problems Medical Problems: (1) Depression Status: Acute (2) Suicidal ideation Status: Acute Comment Review of Relevant I have reviewed the following items yonathan (where applicable) has been applied. Medications Current Medications Fluoxetine HCl (PROzac) 40 mg DAILY PO Last administered on 04/24/20at 11:16; Start 04/24/20 at 09:00 Furosemide (Lasix) 40 mg DAILY PO Last administered on 04/24/20at 11:40; Start 04/24/20 at 09:00 Isosorbide Mononitrate (Imdur) 30 mg DAILY PO Last administered on 04/24/20at 11:17; Start 04/24/20 at 09:00 Lisinopril (Prinivil) 20 mg DAILY PO Last administered on 04/24/20at 11:16; Start 04/24/20 at 09:00 Warfarin Sodium (Coumadin Per Physician) 1 each PRN DAILY PRN MC SEE COMMENTS; Start 04/24/20 at 16:00 Warfarin Sodium (Coumadin) 5 mg DAILY16 PO Last administered on 04/24/20at 15:55; Start 04/24/20 at 16:00 Vitals/I & O Vital Sign - Last 24 Hours 04/24/20 04/24/20 04/24/20 04/24/20 10:47 11:16 11:17 14:49 Temp 97.7 98.0 97.7 98.0 Pulse 74 74 74 68 Resp 18 18 B/P (MAP) 134/72 (92) 134/72 134/72 132/71 (91) Pulse Ox 94 95 O2 Delivery Room Air Room Air 04/24/20 04/24/20 04/24/20 04/25/20 19:11 20:15 23:04 03:02 Temp 97.9 97.4 97.9 97.9 97.4 97.9 Pulse 70 64 60 Resp 18 16 16 B/P (MAP) 109/55 (73) 143/69 (93) 156/73 (100) Pulse Ox 95 94 91 O2 Delivery Room Air Room Air Room Air Room Air 04/25/20 07:01 Temp 97.7 97.7 Pulse 56 Resp 16 B/P (MAP) 140/65 (90) Pulse Ox 93 O2 Delivery Room Air Intake and Output 04/24/20 04/24/20 04/25/20 15:00 23:00 07:00 Intake Total 550 ml 250 ml 200 ml Output Total 600 ml 800 ml Balance 550 ml -350 ml -600 ml Justicifation of Admission Dx: Justifications for Admission: Justification of Admission Dx: Yes NICOLE SMITH MD Apr 25, 2020 08:52
--- NOTE | 2020-04-25 08:55 | SNU/HH DC ---
DISCHARGE ORDERS DISCHARGE INFORMATION: DISCHARGE DATE: Apr 25, 2020 FINAL DIAGNOSIS Problems Medical Problems: (1) Depression Status: Acute (2) Suicidal ideation Status: Acute CONDITION ON DISCHARGE: Stable CODE STATUS: Code Status: Full POST DISCHARGE ORDERS: ACTIVITY ORDERS: Activity as tolerated WEIGHT BEARING STATUS: Full weight bearing DIET AFTER DISCHARGE: Cardiac WOUND/INCISION CARE: No wound care needed OTHER ORDERS: Suicide precautions. She has one-to-one sitter CHECKS AFTER DISCHARGE: CHECKS AFTER DISCHARGE: Check blood press - daily FOLLOW-UP: LAB ORDERS FOR FOLLOW-UP: PT /inr mon and days weekly ,keep inr 2-3. TREATMENT/EQUIPMENT ORDERS: ADAPTIVE EQUIPMENT NEEDED: None, Front wheeled walker RESPIRATORY EQUIPMENT NEEDED: Oxygen DISCHARGE MEDICATIONS: Home Meds Active Scripts Ondansetron (ONDANSETRON ODT) 4 Mg Tab.rapdis, 1 TAB PO PRN Q6-8HRS, #16 TAB Prov:KUNAL RILEY REFRIGERATION HOUSEMAN 11/27/19 Pantoprazole Sodium (Pantoprazole Sodium) 40 Mg Tablet.dr, 40 MG PO BID for GERD, gastritis, for 30 Days, #60 TAB.SR Prov:SPIKE RILEY MD 11/21/19 Atorvastatin Calcium (ATORVASTATIN CALCIUM) 10 Mg Tablet, 10 MG PO QHS, #30 TAB Prov:DARRYL WATSON REFRIGERATION HOUSEMAN 10/23/14 Reported Medications Divalproex Sodium (DIVALPROEX SODIUM) 500 Mg Tablet.dr, 500 MG PO BID, TAB 07/21/19 Fluoxetine Hcl (FLUOXETINE HCL) 40 Mg Capsule, 40 MG PO DAILY for depression, CAP 07/20/19 Potassium Chloride (POTASSIUM CHLORIDE ) 20 Meq Tablet.er, 20 MEQ PO DAILY for supplement, TAB.SR 07/20/19 Mirtazapine (MIRTAZAPINE) 30 Mg Tablet, 30 MG PO HS for insomnia, TAB 07/20/19 Trazodone Hcl (TRAZODONE HCL) 50 Mg Tablet, 50 MG PO HS for insomnia, TAB 07/20/19 Isosorbide Mononitrate (ISOSORBIDE MONONITRATE ER) 30 Mg Tab.er.24h, 1 TAB PO DAILY, #30 TAB 5 Refills 05/04/18 Warfarin Sodium (WARFARIN SODIUM) 5 Mg Tablet, 1 TAB PO DAILY, #90 TAB 1 Refill 05/04/18 Furosemide (FUROSEMIDE) 40 Mg Tablet, 1 TAB PO DAILY for diuretic, #30 TAB 5 Refills 10/27/17 Olanzapine (ZYPREXA) 15 Mg Tablet, 1 TAB PO QHS, #30 TAB 02/20/17 Lisinopril (LISINOPRIL) 20 Mg Tablet, 1 TAB PO DAILY, #30 TAB 5 Refills 02/20/17 Benztropine Mesylate (BENZTROPINE MESYLATE) 1 Mg Tablet, 1 TAB PO BID, #60 TAB 1 Refill 04/14/15 NICOLE SMITH MD Apr 25, 2020 08:55
[2020-04-25] MEDS: FLUoxetine HCL 20 MG CAPSULE PO SCH (10:29)
--- NOTE | 2020-04-25 11:02 | EKG ---
[facility] [address] [place] [address] Test Date: 2020-04-23 Test Time: 19:21:26 Pat Name: RHETT HERNANDEZ Department: Room: Gender: F Manager Creative Services: : 1960 Requested By: MO ROBERTS Order Number: [id number] Reading MD: Measurements Intervals [place] Rate: 66 P: 31 DC: 162 QRS: 8 QRSD: 84 T: 71 QT: 438 QTc: 461 Interpretive Statements SINUS RHYTHM NORMAL ECG RI6.01 No previous ECG available for comparison
[2020-04-25 11:07] VITALS: BP 142/61
--- NOTE | 2020-04-25 11:08 | NUR ---
SW following. Spoke with RN and reviewed chart. Pt cleared for discharge to [facility] pending bed availability. PADMINI notified Eric from [facility] and also phoned and faxed referral to admissions with [facility], , (fax). PADMINI coordinated care with Gage for pt at [facility] ([phone]). Spoke with spouse Vladimir ([phone]) to update on discharge plan. Vladimir asked about LTC for pt in the future. PADMINI printed off list of [place] providers from the Medicare website and left at the ER entrance for him to milk pickup truck driver at his request. Vladimir has gotten the CARE assessment completed and will tour facility choices. Pt does have a hx of Bipolar per Vladimir and he will also consider [facility]. PADMINI did fax clinicals to [place] per Vladimir's request. Patient Choice of Vendor form completed. PADMINI to follow. Addendum: 04/25/20 at 1122 by KE WASHINGTON Pt is COVID negative. Addendum: 04/25/20 at 1251 by KE WASHINGTON Coordinated care with Kristina at [facility] and they are still reviewing this patient and are aware that Dr. Umaña is following and has requested she be admitted to their facility today, 04/25/2020. Addendum: 04/25/20 at 1520 by KE SPICER SW Patient accepted at [facility], , (fax). SW completed Medical Necessity form for ambulance transport per pt's SI and phoned and faxed it to [facility], , (fax). Transport is arranged for 1700. RN to call report to [phone]. Spouse notified. PAT notified. No further SW needs at this time. [facility] [address] [place] [address] Addendum: 04/25/20 at [address] Martino is the accepting physician at [facility].
[2020-04-25 14:30] VITALS: BP 121/83
--- NOTE | 2020-04-25 15:03 | PDOC ---
F/U PHYSCH PROG NOTE Subjective: female seen for follow-up. Progress is reviewed with nursing staff. No major emotional or behavioral breakdown reported on the unit. She continues to be depressed, stating mood is sad and anxious. Apparently, she does not know any trigger. No change in status since yesterday. Continues to have waves of suicidal thoughts without any intent or plan. Denies auditory or visual hallucinations. Denies homicidal ideation. No evidence of rubi or hypomania. Tolerating medications. Objective: 14 point review of system is otherwise negative except for as stated above. Vital Signs: Vital Signs Date Time Temp Pulse Resp B/P (MAP) Pulse Ox O2 Delivery O2 Flow Rate FiO2 04/25/20 14:30 98.2 79 16 121/83 (96) 93 Room Air 98.2 Medications: Current Medications Medications (Trade) Dose Ordered Sig/Galilea Start Time Stop Time Status Last Admin Dose Admin Atorvastatin Calcium (Lipitor) 10 mg QHS 04/24/20 00:00 04/24/20 20:27 10 MG Benztropine Mesylate (Cogentin) 1 mg BID 04/24/20 00:00 04/25/20 08:49 1 MG Divalproex Sodium (Depakote) 500 mg BID 04/24/20 00:00 04/25/20 08:48 500 MG Fluoxetine HCl (PROzac) 40 mg DAILY 04/24/20 09:00 04/25/20 10:29 40 MG Furosemide (Lasix) 40 mg DAILY 04/24/20 09:00 04/25/20 08:49 40 MG Isosorbide Mononitrate (Imdur) 30 mg DAILY 04/24/20 09:00 04/25/20 08:49 30 MG Lisinopril (Prinivil) 20 mg DAILY 04/24/20 09:00 04/25/20 08:49 20 MG Mirtazapine (Remeron) 30 mg HS 04/24/20 00:00 04/24/20 20:27 30 MG Olanzapine (ZyPREXA) 15 mg QHS 04/24/20 00:00 04/24/20 20:27 15 MG Pantoprazole Sodium (Protonix) 40 mg BIDAC 04/24/20 07:30 04/25/20 08:50 40 MG Potassium Chloride (Klor-Con) 20 meq DAILYWBKFT 04/24/20 08:00 04/25/20 08:50 20 MEQ Tramadol HCl (Ultram) 50 mg PRN Q6HRS PRN 04/24/20 00:15 04/24/20 20:41 50 MG Trazodone HCl (Desyrel) 50 mg HS 04/24/20 00:00 04/24/20 20:27 50 MG Warfarin Sodium (Coumadin Per Physician) 1 each PRN DAILY PRN 04/24/20 16:00 Warfarin Sodium (Coumadin) 5 mg DAILY16 04/24/20 16:00 04/24/20 15:55 5 MG Physical Exam: Mental Status Exam: female appears her stated age fairly groomed fairly nourished Cooperative and interactive She is fully alert and oriented Thought processes mostly goal-directed Denies auditory or visual hallucinations. No abnormal perception noted. Admits having suicidal thoughts however denies homicidal thoughts. Mood is depressed and anxious Affect is dysthymic Insight is limited Judgment is limited Impulse control is limited Attention and concentration impaired Recent memory is impaired remote memory is intact. Physical Exam: Refer to Physician's note. 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 Unspecified bipolar mood disorder. Unspecified depression, rule out major depressive disorder Generalized anxiety disorder. Panic attacks. Assessment: She is a female with a complex history of psychiatric comorbidities including thought process disorder and mood instability admitted with worsening depression in context of her depressive type of schizoaffective disorder. Apparently, cyclic pattern of her disease seems to be the reason for her depression however she has precipitating psychosocial circumstances for depression. She is on multiple psychotropics that needs to be carefully monitored and readjusted. She is in agreement with plan and voiced understanding. Today, she continues to report depression with suicidality. However able to contract for safety. Will continue constant observation for safety. Plan: Continue outpatient medications as is. We defer medication changes to mental health provider at [facility] as she will be transferred to [facility]. She needs inpatient psychiatric hospital admission for crisis stabilization. Risks, benefits, alternatives of the treatment are discussed. Adverse drug reactions of the medications prescribed are discussed in detail. Monitor for symptomatology, safety, and adverse drug reaction. We will adjust medications accordingly. Thank you for involving inpatient care SUBHASH ALCALA MD Apr 25, 2020 15:03
--- NOTE | 2020-04-25 15:57 | NUR ---
Report given to Dina stout [place] [phone] . patient will be transported by EMS 1700 hours.
[2020-04-25] MEDS: WARFARIN 5 MG TABLET. PO SCH (16:08)
--- NOTE | 2020-04-25 17:15 | NUR ---
SR : 0.179 Naomi, 0.073 QRS, 0.425 QT, RtoR 0.884, Rate 68 - Discharge instructions were given, catheter tip was intact. Patient tolerated well. Patient transported by EMS to [facility]. Patient left dentures in bathroom - will case picker patient's dentures [phone].
--- NOTE | 2020-04-29 15:23 | PDOC ---
Provider Note Provider Note Discharge summary dictated.#[id number]. Justicifation of Admission Dx: Justifications for Admission: Justification of Admission Dx: Yes NICOLE SMITH MD Apr 29, 2020 15:23
--- NOTE | 2020-04-29 15:47 | DS ---
DATE OF DISCHARGE: 04/25/2020 REASON FOR ADMISSION TO THE HOSPITAL: Depression, suicidal thoughts. CONSULTATION: Dr. Umaña, psychiatrist. PROCEDURES DONE: None. HOSPITAL COURSE: The patient is a 59-year-old female with long history of psychiatric including bipolar, schizoaffective, depression, anxiety and lately she is having suicidal ideation and the patient was admitted to the hospital. The patient had a COVID testing, which was negative, seen by psychiatrist and it was decided that the patient is to go to inpatient psychiatric facility, was admitted to [facility]. The patient has a history of mechanical aortic valve. She is on Coumadin. INR is therapeutic. She had a history of pacemaker, stable and other laboratory data is unremarkable. FINAL IMPRESSION: Major depression with suicidal ideation. DISPOSITION: The patient is discharged to [facility] for inpatient treatment. NICOLE SMITH MD DR: ISAMAR/cori JOB#: [id number] / [id number]
== END 2020-04-25 17:14 | DRG 885 ==
LOC: ER 18:20 → ED HOLD 20:21 → OBSVTOIN 20:43 → 6 SOUTH 22:50
PROVIDERS: ADMIT Internal Medicine; ATTEND Internal Medicine
DX: F25.0 Schizoaffective disorder, bipolar type (principal); R45.851 Suicidal ideations; F41.0 Panic disorder [episodic paroxysmal anxiety]; E78.5 Hyperlipidemia, unspecified; F43.10 Post-traumatic stress disorder, unspecified; I10 Essential (primary) hypertension; I25.10 Atherosclerotic heart disease of native coronary artery without angina pectoris; I25.2 Old myocardial infarction; I35.9 Nonrheumatic aortic valve disorder, unspecified; I48.91 Unspecified atrial fibrillation; J44.9 Chronic obstructive pulmonary disease, unspecified; Z86.73 Personal history of transient ischemic attack (TIA), and cerebral infarction without residual deficits; Z87.891 Personal history of nicotine dependence; Z91.5 Personal history of self-harm; Z95.0 Presence of cardiac pacemaker; Z95.2 Presence of prosthetic heart valve; Z20.828 Contact with and (suspected) exposure to other viral communicable diseases; F41.1 Generalized anxiety disorder
CPT/HCPCS: 36415; 80053; 80164; 80307; 81001; 84443; 85025; 85610; 85730; 87086; 93005; G0379; G0480; 99285-25; G0378; U0003-CS

== ENCOUNTER 2020-12-12 19:48 | Observation (INO) | payer MEDICAID, MEDICARE, OTHER ==
[~2020-12-12] VITALS: Ht 157.5 cm; Wt 93.5 kg
[~2020-12-12 19:48] MED LIST changes: -ISOS30TA4 PO; +ISOS30TA68 PO; -LISI-334 PO; +LISI10TA16 PO; -LISI10TA2 PO; +LISI20TA18 PO
[2020-12-12 20:38] LABS: BASO # 0.1 x10^3/uL (0.0-0.2); BASO % 1 % (0-3); EOS # 0.1 x10^3/uL (0.0-0.7); EOS % 1 % (0-3); HEMOGLOBIN 13.4 g/dL (12.0-15.5); LYMPH # 1.4 x10^3/uL (1.0-4.8); LYMPH % 22 % (24-48); MEAN CORPUSCULAR HEMOGLOBIN 27 pg (25-35); MEAN CORPUSCULAR HGB CONC 34 g/dL (31-37); MEAN CORPUSCULAR VOLUME 82 fL (79-100); MONO # 0.6 x10^3/uL (0.0-1.1); MONO % 10 % (0-9); NEUT # 4.1 x10^3/uL (1.8-7.7); NEUT % 66 % (31-73); PLATELET COUNT 155 x10^3/uL (140-400); RED CELL DISTRIBUTION WIDTH 15.4 % (11.5-14.5); WHITE BLOOD COUNT 6.2 x10^3/uL (4.0-11.0)
--- NOTE | 2020-12-12 20:42 | EKG ---
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
[2020-12-12 20:51] LABS: CALCIUM 8.3 mg/dL (8.5-10.1); CREATININE 0.8 mg/dL (0.6-1.0); GFR 73.2; POTASSIUM 3.8 mmol/L (3.5-5.1)
--- NOTE | 2020-12-12 21:03 | RAD ---
EXAM: CHEST 2 VIEWS. HISTORY: Chest pain. COMPARISON: 02/29/2020. FINDINGS: Frontal and lateral views of the chest are obtained. A left-sided pacemaker has its leads i n the right atrium and right ventricle. There are changes of coronary artery bypass grafting. There are no confluent infiltrates. There are trace bilateral pleural effusions. There is no pneumoth orax. The heart is mildly enlarged. Calcified lymph nodes likely reflect old granulomatous disease. C holecystectomy clips are noted. IMPRESSION: 1. Trace bilateral pleural effusions. Mild cardiomegaly. Electronically signed by: Jovanni Hernandez MD (12/12/2020 9:01 PM) [facility]
--- NOTE | 2020-12-12 21:16 | ED.ADGEN ---
Past Medical History Past Medical History: A-Fib, Anxiety, Bipolar, CVA, Hypertension, IN, Renal Disease, Schizophrenia, Other Additional Past Medical Histor: HALLUCINATIONS, AORTIC VALVE DISORDERS, mi 1996, kidney problems Past Surgical History: Cholecystectomy, Pacemaker Additional Past Surgical Histo: AVR, defibrillator Smoking Status: Former Smoker Alcohol Use: None Drug Use: None General Adult EDM: Chief Complaint: CHEST PAIN HPI: HPI: Patient is a 60-year-old female who presents to the emergency room complaining of left-sided chest pain that feels sharp in nature. It is worse with deep breathing and walking. There is associated shortness of breath. Its been ongoing since last night. She has had them this pain previously but is not sure what has caused it. She has not tried anything for pain at home. She denies any URI symptoms, cough, fever, chills, sweats, abdominal pain, nausea, vomiting, sweating. Patient was resting when the pain first came on. Review of Systems: Review of Systems: Complete ROS is negative unless otherwise documented in HPI Current Medications: Current Medications Medications (Trade) Dose Ordered Sig/Galilea Start Time Stop Time Status Last Admin Dose Admin Morphine Sulfate (Morphine Sulfate) 3 mg 1X ONCE 12/12/20 22:30 12/12/20 22:31 UNV Nitroglycerin (Nitrostat) 0.4 mg PRN Q5MIN PRN 12/12/20 20:30 12/12/20 21:43 0.4 MG Allergies: Allergies: Allergies Coded Allergies Type Severity Reaction Last Updated Verified Sulfa (Sulfonamide Antibiotics) Allergy Severe rash, tongue swelling 04/15/15 Yes Iodinated Contrast Media Allergy Intermediate rash 04/15/15 Yes Penicillins Allergy Intermediate Hives 04/15/15 Yes aspirin Allergy Intermediate Hives 04/15/15 Yes codeine Allergy Intermediate Hives; SEE COMMENT 06/08/15 Yes diphenhydramine HCl Allergy Intermediate rash 12/19/13 Yes latex Allergy Intermediate Rash 12/18/13 Yes Physical Exam: PE: General: Awake, alert, NAD. Well Nourished, well hydrated. Cooperative HEENT: Atraumatic, EOMI, PERRL, airway patent, moist oral mucosa Neck: Supple, trachea midline Respiratory: CTA bilaterally, normal effort, no wheezing/crackles CV: RRR, no murmur, cap refill <2 GI: Soft, nondistended, nontender, no masses MSK: No obvious deformities Skin: Warm, dry, intact Neuro: A&O x3, speech NL, sensory and motor grossly intact, no focal deficits Psych: Normal affect, normal mood, not suicidal or homicidal Current Patient Data: Labs: Laboratory Tests Test 12/12/20 20:29 White Blood Count 6.2 x10^3/uL (4.0-11.0) Red Blood Count 4.90 x10^6/uL (3.50-5.40) Hemoglobin 13.4 g/dL (12.0-15.5) Hematocrit 40.0 % (36.0-47.0) Mean Corpuscular Volume 82 fL (79-100) Mean Corpuscular Hemoglobin 27 pg (25-35) Mean Corpuscular Hemoglobin Concent 34 g/dL (31-37) Red Cell Distribution Width 15.4 % (11.5-14.5) H Platelet Count 155 x10^3/uL (140-400) Neutrophils (%) (Auto) 66 % (31-73) Lymphocytes (%) (Auto) 22 % (24-48) L Monocytes (%) (Auto) 10 % (0-9) H Eosinophils (%) (Auto) 1 % (0-3) Basophils (%) (Auto) 1 % (0-3) Neutrophils # (Auto) 4.1 x10^3/uL (1.8-7.7) Lymphocytes # (Auto) 1.4 x10^3/uL (1.0-4.8) Monocytes # (Auto) 0.6 x10^3/uL (0.0-1.1) Eosinophils # (Auto) 0.1 x10^3/uL (0.0-0.7) Basophils # (Auto) 0.1 x10^3/uL (0.0-0.2) Sodium Level 142 mmol/L (136-145) Potassium Level 3.8 mmol/L (3.5-5.1) Chloride Level 105 mmol/L (98-107) Carbon Dioxide Level 32 mmol/L (21-32) Anion Gap 5 (6-14) L Blood Urea Nitrogen 14 mg/dL (7-20) Creatinine 0.8 mg/dL (0.6-1.0) Estimated GFR (Cockcroft-Gault) 73.2 Glucose Level 124 mg/dL (70-99) H Calcium Level 8.3 mg/dL (8.5-10.1) L Troponin I Quantitative < 0.017 ng/mL (0.000-0.055) WG-Wbf-Q-Type Natriuretic Peptide 317 pg/mL (0-124) H Laboratory Tests 12/12/20 20:29 Laboratory Tests 12/12/20 20:29 Vital Signs: Vital Signs Date Time Temp Pulse Resp B/P (MAP) Pulse Ox O2 Delivery O2 Flow Rate FiO2 12/12/20 21:43 76 156/70 12/12/20 19:50 97.9 20 98 Room Air 97.9 EKG: EKG: [] Heart Score: C/O Chest Pain: Yes HEART Score for Chest Pain: HEART Score for Chest Pain Response (Comments) Value History Slighlty/Non-Suspicious 0 ECG Nonspecific Repolarizatio 1 Age >45 - < 65 1 Risk Factors >3 Risk Factors or Hx CAD 2 Troponin < Normal Limit 0 Total 4 Risk Factors: Risk Factors: DM, Current or recent (<one month) smoker, HTN, HLP, family history of CAD, obesity. Risk Scores: Score 0 - 3: 2.5% MACE over next 6 weeks - Discharge Home Score 4 - 6: 20.3% MACE over next 6 weeks - Admit for Clinical Observation Score 7 - 10: 72.7% MACE over next 6 weeks - Early Invasive Strategies Radiology/Procedures: Radiology/Procedures: [] Course & Med Decision Making: Course & Med Decision Making Pertinent Labs and Imaging studies reviewed. (See chart for details) Patient is a 60 year-old female who presents to the Emergency Room complaining of chest pain shortness of breath. History is significant for aortic valve replacement, hypertension, coronary artery disease. At this time, given patient's risk factors and story there is concern for possible cardiac pathology. EKG was ordered and shows old. At this time there is no signs of STEM I, pericarditis, or unstable arrthymia on EKG. Patient has received aspirin today. CBC, BMP, troponin, CXR were ordered to evaluate for causes of chest pain including ACS, anemia, electrolyte abnormalities that can lead to arrhythmias, PTX, pneumonia, pneumomediastinum. Patient does not have any abdominal tenderness that would suggest pancreaititis or cholecystitis and does not need an abdominal work up at this time. Patient's HEART score is 4 placing the patient at moderate risk. Patient does request nicardipine medicine for pain. Pain not improved with nitro. She will be admitted to the hospital for chest pain rule out. Dragon Disclaimer: Augustin Disclaimer: This electronic medical record was generated, in whole or in part, using a voice recognition dictation system. Departure Departure Referrals: NICOLE SMITH MD (PCP) JENNIFER FRAIRE MD Dec 12, 2020 21:16
[2020-12-12] MEDS: NITROGLYCERIN SUBLINGUAL 0.4 MG BOTTLE OF 25. SL PRN ×3 (21:27→21:43)
[2020-12-12] MEDS ORDERED: MORPHINE SULFATE 2 MG/ML VIAL. IV ONE (22:30)
[2020-12-12] MEDS ORDERED: QUET200T PO (22:44)
[2020-12-13] VITALS (7 sets, daily range): BP systolic 110–143; BP diastolic 58–75
[2020-12-13] MEDS ORDERED: TRAM50TA PO (01:31)
[2020-12-13] MEDS ORDERED: POTA20TA4 PO (01:31)
[2020-12-13] MEDS ORDERED: OMEP40CA45 PO (01:31)
[2020-12-13] MEDS ORDERED: FURO20TA3 PO (01:31)
[2020-12-13] MEDS ORDERED: LEVO25TA4 PO (01:31)
[2020-12-13] MEDS ORDERED: MONT10TA20 PO (01:31)
[2020-12-13] MEDS ORDERED: ALBU2.5V8 IH (01:31)
[2020-12-13] MEDS: HYDROcodone/APAP 5/325MG 1 TAB TABLET PO PRN ×4 (01:58→20:36)
[2020-12-13 02:28] LABS: PROTHROMBIN TIME PATIENT 27.3 SEC (11.7-14.0)
--- NOTE | 2020-12-13 08:13 | EKG ---
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
--- NOTE | 2020-12-13 08:37 | PDOC ---
Provider Note Date of Service: DATE: 12/13/20 TIME: 08:37 Provider Note H&P dictated.#[id number]. Justifications for Admission Other Justification NICOLE SMITH MD Dec 13, 2020 08:37
[2020-12-13] MEDS: ISOSORBIDE MONONITRATE ER 30 MG TAB.ER.24H PO SCH (09:29)
[2020-12-13] MEDS: DIVALPROEX DELAYED RELEASE 500 MG TABLET.DR. PO SCH ×2 (09:29→20:37)
[2020-12-13] MEDS: PANTOPRAZOLE 40 MG TABLET.DR. PO SCH (09:29)
[2020-12-13] MEDS: POTASSIUM CHLORIDE 20 MEQ TABLET.ER. PO SCH ×2 (09:29→17:19)
[2020-12-13] MEDS: LEVOTHYROXINE 25 MCG TABLET. PO SCH (09:29)
[2020-12-13] MEDS: FLUoxetine HCL 20 MG CAPSULE PO SCH (09:30)
[2020-12-13] MEDS: traMADol 50 MG TABLET PO PRN ×2 (09:38→20:37)
[2020-12-13] MEDS: LISINOPRIL 20 MG TABLET PO SCH (09:38)
--- NOTE | 2020-12-13 10:05 | NUR ---
SS following for discharge planning. SS reviewed pt chart and discussed with pt RN. Pt is from home with spouse and is currently on room air. Cardiology consult. Possible discharge to home today if cardiology signs off. SS will continue to follow for discharge planning.
[2020-12-13] MEDS: ALBUTEROL SULFATE 2.5 MG/3 ML NEBU. INH SCH ×3 (11:14→20:25)
[2020-12-13] MEDS: FUROSEMIDE 20 MG TABLET PO SCH (11:22)
--- NOTE | 2020-12-13 15:20 | HP ---
ADMIT DATE: 12/12/2020 MEDICAL HISTORY AND PHYSICAL REASON FOR ADMISSION TO THE HOSPITAL: Chest pain. The patient has a known history of coronary artery disease. HISTORY OF PRESENT ILLNESS: The patient is a 60-year-old female patient known to us, has a history of coronary artery disease and she also has a history of aortic valve replacement, mechanical valve, pacemaker, had previous cardiac stents, had a cardiac cath in 2019. No major blockages. She also had a gallbladder surgery. The patient had some chest pain, came to the Emergency Room. EKG, cardiac enzymes were negative. The patient was admitted for further investigation and treatment. PAST MEDICAL HISTORY: History of anxiety, bipolar, schizophrenia, atrial fibrillation, hypertension, hyperlipidemia, GERD. PAST SURGICAL HISTORY: Aortic valve mechanical valve replacement, pacemaker, cardiac catheterization, previous stents, gallbladder surgery. PERSONAL HISTORY: Former smoker, does not smoke now. Denies alcohol. The patient is on tramadol for pain. FAMILY HISTORY: Psychiatric problems, diabetes, heart disease. She lives with her . ALLERGIES: CONTRAST, PENICILLIN, SULFA, CODEINE, LATEX, BENADRYL AND ASPIRIN. MEDICATIONS AT HOME: Albuterol inhaler, atorvastatin 10 mg daily, Depakote 500 mg twice a day, fluoxetine 40 mg for depression, Lasix 20 mg daily, isosorbide 30 mg daily, levothyroxine 25 mcg daily, lisinopril 20 mg daily, Singulair 10 mg daily, Zyprexa 15 mg at bedtime, omeprazole 40 mg daily, potassium 20 mEq twice a day, Seroquel 200 mg 2-1/2 tablets, tramadol 50 mg p.r.n., trazodone 50 mg at bedtime, Coumadin 5 mg daily. REVIEW OF SYMPTOMS: Complains of pain in the chest going to the back. Denies any nausea, vomiting or sweating. Rest of the 14-system was reviewed and negative. PHYSICAL EXAMINATION: VITAL SIGNS: Temperature 97, pulse 62, respirations 16, blood pressure 120/60, 95 on room air. HEENT: Head is atraumatic. The patient is slightly irregular pupil in the left eye. Oral cavity: Dentures. NECK: Supple. Thyroid not enlarged. JVD not elevated. CHEST: Symmetrical. The patient has a scar of heart surgery, mechanical valve and also pacemaker in left side of chest. CARDIOVASCULAR: S1, S2. LUNGS: Clear to auscultation. No wheezing. ABDOMEN: Soft, no mass palpable. EXTERNAL GENITALIA: No Siu. RECTAL: Deferred. EXTREMITIES: No calf tenderness, no edema. Pulses 1+. NEUROLOGIC: Moving all extremities. No focal deficits noted. LABORATORY DATA: Shows a white count of 6, hemoglobin 13, platelets 155. INR 2.5. Electrolytes are sodium 142, potassium 3.8, chloride 105, bicarbonate 32, BUN 14, creatinine 0.8, glucose 124. Troponin elevated to 0.1. BNP 317. Chest x-ray: Mild pleural effusion and cardiomegaly. EKG done, report is pending. FINAL IMPRESSION: 1. Chest pain, for cardiac evaluation. 2. Slightly trending troponin. 3. History of cardiac stents, last cardiac catheterization shows patent stents, last year. 4. History of mechanical aortic valve, on Coumadin. 5. Anxiety, depression. 6. Gastroesophageal reflux disease. PLAN: At this time, admit to hospital. Cardiology consult. Monitor troponin and see how she improves in the next 24-48 hours. NICOLE SMITH MD DR: ISAMAR/cori JOB#: [id number] / [id number]
--- NOTE | 2020-12-13 15:57 | PDOC2 ---
CONSULT Date of Consult Date of Consult DATE: 12/13/20 TIME: 15:50 Reason for Consult Reason for Consult: Chest pain Referring Physician Referring Physician: Dr. Hudson Identification/Chief Complaint Chief Complaint Chest pain Source Source: Chart review, Patient History of Present Illness Reason for Visit: The patient is a 60-year-old female with a history of coronary artery disease. Aortic valve replacement and atrial fibrillation. She reports developing episodes of chest discomfort yesterday. This was in her upper left chest and shoulder. The pain increased with deep inspiration. Patient's EKG showed no acute ischemic changes. Her initial troponin was 0.017 followed by 0.036 and 0.107. INR is 2.5. She had a cardiac catheterization on 01/11/2020 that showed a 30% LAD lesion which was unchanged from previous cath and widely patent stents in her right coronary artery. She also has a history of a pacemaker with normal outpatient follow-up. She is feeling somewhat better today. Her pain is largely resolved. Past Medical History Cardiovascular: AFIB, CAD, CHF, HTN, MO, Hyperlipidemia, Aortic stenosis, Other Pulmonary: Asthma, COPD CENTRAL NERVOUS SYSTEM: CVA, Seizure, Other GI: GERD, Peptic Ulcer disease, Other Heme/Onc: Cancer Hepatobiliary: No pertinent hx Psych: Anxiety, Bipolar, Depression Musculoskeletal: Osteoarthritis Rheumatologic: No pertinent hx Infectious disease: No pertinent hx Renal/: No pertinent hx Endocrine: No pertinent hx Past Surgical History Past Surgical History: Pacemaker, CABG, Hernia Repair, Mastectomy, Hysterectomy, Other (Aortic valve replacement, right coronary stents) Family History Family History: Diabetes, Hypertension Social History Quit ALCOHOL: none Drugs: None Lives: with Family Current Medications Current Medications Current Medications Nitroglycerin (Nitrostat) 0.4 mg PRN Q5MIN PRN SL CHEST PAIN Last administered on 12/12/20at 21:43; Start 12/12/20 at 20:30 Morphine Sulfate (Morphine Sulfate) 3 mg 1X ONCE IV Last administered on 12/12/20at 22:33; Start 12/12/20 at 22:30; Stop 12/12/20 at 22:31; Status DC Acetaminophen/ Hydrocodone Bitart (Lortab 5/325) 1 tab PRN Q6HRS PRN PO PAIN Last administered on 12/13/20at 14:44; Start 12/13/20 at 01:45 Albuterol Sulfate (Ventolin Neb Soln) 2 mg Q4HRS W/A INH Last administered on 12/13/20 11:14; Start 12/13/20 at 10:00 Atorvastatin Calcium (Lipitor) 10 mg QHS PO ; Start 12/13/20 at 21:00 Divalproex Sodium (Depakote) 500 mg BID PO Last administered on 12/13/20 09:29; Start 12/13/20 at 09:00 Furosemide (Lasix) 20 mg DAILY PO Last administered on 12/13/20 11:22; Start 12/13/20 at 09:00 Isosorbide Mononitrate (Imdur) 30 mg DAILY PO Last administered on 12/13/20 09:29; Start 12/13/20 at 09:00 Levothyroxine Sodium (Synthroid) 25 mcg DAILY06 PO Last administered on 12/13/20 09:29; Start 12/13/20 at 09:00 Lisinopril (Prinivil) 20 mg DAILY PO Last administered on 12/13/20 09:38; Start 12/13/20 at 09:00 Montelukast Sodium (Singulair) 10 mg QHS PO ; Start 12/13/20 at 21:00 Potassium Chloride (Klor-Con) 20 meq BIDWMEALS PO Last administered on 12/13/20 09:29; Start 12/13/20 at 09:00 Tramadol HCl (Ultram) 50 mg PRN Q12HR PRN PO PAIN Last administered on 12/13/20 09:38; Start 12/13/20 at 08:45 Trazodone HCl (Desyrel) 50 mg HS PO ; Start 12/13/20 at 21:00 Warfarin Sodium (Coumadin) 5 mg DAILY16 PO Last administered on 12/13/20 14:44; Start 12/13/20 at 16:00 Fluoxetine HCl (PROzac) 40 mg DAILY PO Last administered on 12/13/20 09:30; Start 12/13/20 at 09:00 Olanzapine (ZyPREXA) 15 mg QHS PO ; Start 12/13/20 at 21:00 Pantoprazole Sodium (Protonix) 40 mg DAILYAC PO Last administered on 12/13/20 09:29; Start 12/13/20 at 09:00 Quetiapine Fumarate (SEROquel) 500 mg QHS PO ; Start 12/13/20 at 21:00 Warfarin Sodium (Coumadin Per Physician) 1 each PRN DAILY PRN MC SEE COMMENTS Last administered on 12/13/20at 14:04; Start 12/13/20 at 09:00 Active Scripts Active Atorvastatin Calcium 10 Mg Tablet 10 Mg PO QHS Reported Montelukast Sodium 10 Mg Tablet 1 Tab PO QHS Levothyroxine Sodium 25 Mcg Tablet 1 Tab PO DAILY Tramadol Hcl 50 Mg Tablet 1 Tab PO PRN Q12HR PRN Proair Hfa (Albuterol Sulfate) 8.5 Gm Hfa.aer.ad 1 Puff IH Q4HRS Omeprazole 40 Mg Capsule.dr 1 Cap PO DAILY Furosemide 20 Mg Tablet 1 Tab PO DAILY Klor-Con M20 (Potassium Chloride) 20 Meq Tab.er.prt 1 Tab PO BID Quetiapine Fumarate 200 Mg Tablet 2.5 Tab PO QHS Divalproex Sodium 500 Mg Tablet.dr 500 Mg PO BID Fluoxetine Hcl 40 Mg Capsule 40 Mg PO DAILY Trazodone Hcl 50 Mg Tablet 50 Mg PO HS Isosorbide Mononitrate Er (Isosorbide Mononitrate) 30 Mg Tab.er.24h 1 Tab PO DAILY Warfarin Sodium 5 Mg Tablet 1 Tab PO DAILY Zyprexa (Olanzapine) 15 Mg Tablet 1 Tab PO QHS Lisinopril 20 Mg Tablet 1 Tab PO DAILY Allergies Allergies: Coded Allergies: Sulfa (Sulfonamide Antibiotics) (Verified Allergy, Severe, rash, tongue swelling, 04/15/15) Iodinated Contrast Media (Verified Allergy, Intermediate, rash, 04/15/15) Penicillins (Verified Allergy, Intermediate, Hives, 04/15/15) aspirin (Verified Allergy, Intermediate, Hives, 04/15/15) codeine (Verified Allergy, Intermediate, Hives; SEE COMMENT, 06/08/15) PT REPORTS TAKING LORTAB WITHOUT COMPLICATIONS, PER ED diphenhydramine HCl (Verified Allergy, Intermediate, rash, 12/19/13) latex (Verified Allergy, Intermediate, Rash, 12/18/13) ROS General: YES: Fatigue Respiratory: YES: SOB with excertion Cardiovascular: yes Chest Pain Physical Exam General: mild distress HEENT: Atraumatic Lungs: Clear to auscultation Heart: Other (Irregular rhythm,) Abdomen: Normal bowel sounds Vitals VITALS Vital Signs Date Time Temp Pulse Resp B/P (MAP) Pulse Ox O2 Delivery O2 Flow Rate FiO2 12/13/20 14:46 97.5 69 17 115/58 (77) 95 Room Air 97.5 Labs Labs Laboratory Tests Test 12/12/20 20:29 12/13/20 01:05 12/13/20 01:10 12/13/20 05:30 White Blood Count 6.2 x10^3/uL (4.0-11.0) Red Blood Count 4.90 x10^6/uL (3.50-5.40) Hemoglobin 13.4 g/dL (12.0-15.5) Hematocrit 40.0 % (36.0-47.0) Mean Corpuscular Volume 82 fL (79-100) Mean Corpuscular Hemoglobin 27 pg (25-35) Mean Corpuscular Hemoglobin Concent 34 g/dL (31-37) Red Cell Distribution Width 15.4 % (11.5-14.5) Platelet Count 155 x10^3/uL (140-400) Neutrophils (%) (Auto) 66 % (31-73) Lymphocytes (%) (Auto) 22 % (24-48) Monocytes (%) (Auto) 10 % (0-9) Eosinophils (%) (Auto) 1 % (0-3) Basophils (%) (Auto) 1 % (0-3) Neutrophils # (Auto) 4.1 x10^3/uL (1.8-7.7) Lymphocytes # (Auto) 1.4 x10^3/uL (1.0-4.8) Monocytes # (Auto) 0.6 x10^3/uL (0.0-1.1) Eosinophils # (Auto) 0.1 x10^3/uL (0.0-0.7) Basophils # (Auto) 0.1 x10^3/uL (0.0-0.2) Sodium Level 142 mmol/L (136-145) Potassium Level 3.8 mmol/L (3.5-5.1) Chloride Level 105 mmol/L (98-107) Carbon Dioxide Level 32 mmol/L (21-32) Anion Gap 5 (6-14) Blood Urea Nitrogen 14 mg/dL (7-20) Creatinine 0.8 mg/dL (0.6-1.0) Estimated GFR (Cockcroft-Gault) 73.2 Glucose Level 124 mg/dL (70-99) Calcium Level 8.3 mg/dL (8.5-10.1) Troponin I Quantitative < 0.017 ng/mL (0.000-0.055) 0.063 ng/mL (0.000-0.055) 0.107 ng/mL (0.000-0.055) BT-Fnn-M-Type Natriuretic Peptide 317 pg/mL (0-124) Prothrombin Time 27.3 SEC (11.7-14.0) Prothromb Time International Ratio 2.5 (0.8-1.1) Laboratory Tests Test 12/12/20 20:29 12/13/20 01:05 12/13/20 01:10 12/13/20 05:30 White Blood Count 6.2 x10^3/uL (4.0-11.0) Red Blood Count 4.90 x10^6/uL (3.50-5.40) Hemoglobin 13.4 g/dL (12.0-15.5) Hematocrit 40.0 % (36.0-47.0) Mean Corpuscular Volume 82 fL (79-100) Mean Corpuscular Hemoglobin 27 pg (25-35) Mean Corpuscular Hemoglobin Concent 34 g/dL (31-37) Red Cell Distribution Width 15.4 % (11.5-14.5) Platelet Count 155 x10^3/uL (140-400) Neutrophils (%) (Auto) 66 % (31-73) Lymphocytes (%) (Auto) 22 % (24-48) Monocytes (%) (Auto) 10 % (0-9) Eosinophils (%) (Auto) 1 % (0-3) Basophils (%) (Auto) 1 % (0-3) Neutrophils # (Auto) 4.1 x10^3/uL (1.8-7.7) Lymphocytes # (Auto) 1.4 x10^3/uL (1.0-4.8) Monocytes # (Auto) 0.6 x10^3/uL (0.0-1.1) Eosinophils # (Auto) 0.1 x10^3/uL (0.0-0.7) Basophils # (Auto) 0.1 x10^3/uL (0.0-0.2) Sodium Level 142 mmol/L (136-145) Potassium Level 3.8 mmol/L (3.5-5.1) Chloride Level 105 mmol/L (98-107) Carbon Dioxide Level 32 mmol/L (21-32) Anion Gap 5 (6-14) Blood Urea Nitrogen 14 mg/dL (7-20) Creatinine 0.8 mg/dL (0.6-1.0) Estimated GFR (Cockcroft-Gault) 73.2 Glucose Level 124 mg/dL (70-99) Calcium Level 8.3 mg/dL (8.5-10.1) Troponin I Quantitative < 0.017 ng/mL (0.000-0.055) 0.063 ng/mL (0.000-0.055) 0.107 ng/mL (0.000-0.055) UT-Fag-V-Type Natriuretic Peptide 317 pg/mL (0-124) Prothrombin Time 27.3 SEC (11.7-14.0) Prothromb Time International Ratio 2.5 (0.8-1.1) Images Images Chest x-ray with no acute changes. Assessment/Plan Assessment/Plan 1. Chest pain. Pain has improved. Patient has a minimal elevation in troponin. No acute EKG changes. Patient also with a history of atrial fibrillation and an AVR. At this time we will continue medical treatment and gradually increase the patient's activity. Her pain is atypical for coronary disease and increases with deep inspiration and some movement of her arm. If the patient's pain resolves later today she may go home from a cardiac viewpoint. We are attempting to check an echocardiogram today for an update on her aortic valve. As noted above catheterization 2 years ago showed no significant disease. We will follow-up in the office. 2. AVR. Continuing present treatments. Echocardiogram. 3. Atrial fibrillation. Continuing anticoagulation and present medical treatment. 4. Hypertension. Under better control. Thank you for allowing us to participate in the care of your patient. DAT MIMS MD Dec 13, 2020 15:56
[2020-12-13] MEDS ORDERED: WARFARIN 5 MG TABLET. PO SCH (16:00)
--- NOTE | 2020-12-13 19:24 | CARD ---
MR#: [id number] Date of Study: 12/13/2020 Ordering Physician: DAT MIMS, Referring Physician: DAT MIMS, Tech: APPROVED REPORT EXAM: Two-dimensional and M-mode echocardiogram with Doppler and color Doppler. Other Information Technically limited study due to body habitus. INDICATION Dyspnea Surgery/Intervention Status/Post Aortic Valve Replacement: Date: 1996 RISK FACTORS Hypertension Hyperlipidemia 2D DIMENSIONS RVDd3.2 (2.9-3.5cm)Left Atrium(2D)3.4 (1.6-4.0cm) IVSd1.4 (0.7-1.1cm)Aortic Root(2D)3.3 (2.0-3.7cm) LVDd5.1 (3.9-5.9cm)LVOT Diameter2.1 (1.8-2.4cm) PWd1.2 (0.7-1.1cm)LVDs2.5 (2.5-4.0cm) FS (%) 50.5 %SV103.0 ml LVEF(%)71.5 (>50%) Aortic Valve AoV Peak Garcia.334.7cm/sAoV VTI79.6cm AO Peak GR.44.8mmHgLVOT VTI 29.29cm AO Mean GR.33mmHg Mitral Valve MV E Dgplhvqh40.4cm/sMV DECEL [id number] MV A Kanccxqu46.3cm/sE/A Ratio1.3 TDI Lateral E' P. V7.74cm/sMedial E' P. V6.20cm/s E/Lateral E'10.9E/Medial E'13.6 Tricuspid Valve TR P. Etiddbhm756qr/sRAP [id number] TR Peak Gr.06kvYlJIFI94zeHx LEFT VENTRICLE The left ventricle is normal size. There is mild to moderate concentric left ventricular hypertrophy. The left ventricular systolic function is normal and the ejection fraction is within normal range. T he Ejection Fraction is 55%. There is grossly normal LV segmental wall motion. Transmitral Doppler fl ow pattern is Grade II-pseudonormal filling dynamics. RIGHT VENTRICLE The right ventricle is normal size. There is normal right ventricular wall thickness. The right ventr icular systolic function is normal. There is a probable pacing leading in the RA/RV ATRIA The left atrium is borderline dilated. The right atrium size is normal. Interatrial septum not well v isualized. AORTIC VALVE Doppler and Color Flow revealed trace aortic regurgitation. Calculated aortic valve area is 1.25 cm2 with maximum pressure gradient of 61 mmHg and mean pressure gradient of 34 mmHg. There is a mechanica l aortic valve prosthesis. The prosthetic aortic valve appears grossly normal. MITRAL VALVE The mitral valve is normal in structure and function. There is no evidence of mitral valve prolapse. There is no mitral valve stenosis. Doppler and Color-flow revealed trace mitral regurgitation. TRICUSPID VALVE The tricuspid valve is normal in structure and function. Doppler and Color Flow revealed trace tricus pid regurgitation with an estimated PAP of 39 mmHg. There is no tricuspid valve stenosis. PULMONIC VALVE The pulmonic valve is not well visualized. Doppler and Color Flow revealed trace pulmonic valvular re gurgitation. There is no pulmonic valvular stenosis. GREAT VESSELS The aortic root is normal in size. The ascending aorta is mildly dilated measuring 4 cm. The IVC is n ormal in size and collapses >50% with inspiration. PERICARDIAL EFFUSION There is no evidence of significant pericardial effusion. Critical Notification Critical Value: No <Conclusion> The left ventricular systolic function is normal and the ejection fraction is within normal range. Th e Ejection Fraction is 55%. There is grossly normal LV segmental wall motion. There is a mechanical aortic valve prosthesis. The prosthetic aortic valve appears grossly normal. Calculated aortic valve area is 1.25 cm2 with maximum pressure gradient of 61 mmHg and mean pressure gradient of 34 mmHg. (Stable compared to 1 year ago) The ascending aorta is mildly dilated measuring 4 cm. Signed by : Josh Hayes, Electronically Approved : 12/13/2020 19:23:28
[2020-12-13] MEDS ORDERED: MONTELUKAST SODIUM 10 MG TABLET. PO SCH (21:00)
[2020-12-13] MEDS ORDERED: OLANZapine 5 MG TABLET PO SCH (21:00)
[2020-12-13] MEDS ORDERED: traZODone 50 MG TABLET. PO SCH (21:00)
[2020-12-13] MEDS ORDERED: QUEtiapine 100 MG TABLET. PO SCH (21:00)
[2020-12-13] MEDS ORDERED: ATORVASTATIN CALCIUM 10 MG TABLET. PO SCH (21:00)
[2020-12-14 03:00] VITALS: BP 121/70
[2020-12-14 05:53] LABS: PROTHROMBIN TIME PATIENT 19.8 SEC (11.7-14.0)
[2020-12-14] MEDS: LEVOTHYROXINE 25 MCG TABLET. PO SCH (06:40)
[2020-12-14] MEDS: PANTOPRAZOLE 40 MG TABLET.DR. PO SCH (06:41)
[2020-12-14 07:00] VITALS: BP 124/57
[2020-12-14] MEDS: ALBUTEROL SULFATE 2.5 MG/3 ML NEBU. INH SCH ×2 (07:06→11:37)
[2020-12-14] MEDS: POTASSIUM CHLORIDE 20 MEQ TABLET.ER. PO SCH (08:40)
[2020-12-14] MEDS: FLUoxetine HCL 20 MG CAPSULE PO SCH (08:41)
[2020-12-14] MEDS: DIVALPROEX DELAYED RELEASE 500 MG TABLET.DR. PO SCH (08:41)
[2020-12-14] MEDS: FUROSEMIDE 20 MG TABLET PO SCH (08:41)
[2020-12-14] MEDS: LISINOPRIL 20 MG TABLET PO SCH (08:42)
[2020-12-14] MEDS: ISOSORBIDE MONONITRATE ER 30 MG TAB.ER.24H PO SCH (08:42)
[2020-12-14] MEDS ORDERED: HYDR-2761 PO (09:55)
[2020-12-14] MEDS ORDERED: NITR0.4T24 SL (09:56)
--- NOTE | 2020-12-14 10:02 | PDOC ---
PROGRESS NOTES Date of Service: DATE: 12/14/20 TIME: 09:57 Subjective Subjective c/o left shoulder pain and dyspnea on exertion, denied any chest pain as such Objective Objective Vital Signs Date Time Temp Pulse Resp B/P (MAP) Pulse Ox O2 Delivery O2 Flow Rate FiO2 12/14/20 08:42 64 124/57 12/14/20 07:06 96 Room Air 12/14/20 07:00 97.5 16 97.5 Intake and Output 12/14/20 07:00 Intake Total 720 ml Output Total 725 ml Balance -5 ml Intake Oral 720 ml Output Urine Total 725 ml Physical Exam Abdomen: Normal bowel sounds Heart: Regular rate, Other (Mechanical aortic valve click crisp) General: Alert, No acute distress HEENT: Atraumatic Lungs: Clear to auscultation Neuro: Normal speech Psych/Mental Status: Mood NL Assessment Assessment 1. Chest pain with atypical features in a patient with known history of coronary artery disease, most probably musculoskeletal. Slight troponin elevation probably demand ischemia. 2D echo showed normal LV systolic function without any wall motion abnormalities. Cardiac catheterization in December 2019 showed patent stents in her right coronary artery without any lesions needing intervention. No further cardiac work-up is indicated at this time. Okay for discharge from cardiac standpoint 2. SSS s/p PPM implantation, recent check showed normal function. 3. s/p mechanical AVR, stable. 2D echo showed well-seated and normally functioning mechanical prosthetic AVR. Continue warfarin. 4. Paroxysmal atrial fibrillation: Presently in sinus rhythm. 5. Hypertension: Controlled 6. Hyperlipidemia: Continue statin therapy 7. Hypothyroidism: On levothyroxine Comment Review of Relevant I have reviewed the following items yonathan (where applicable) has been applied. Labs Laboratory Tests Test 12/14/20 03:50 Prothrombin Time 19.8 SEC (11.7-14.0) Prothromb Time International Ratio 1.7 (0.8-1.1) Medications Current Medications Albuterol Sulfate (Ventolin Neb Soln) 2 mg Q4HRS W/A INH Last administered on 12/14/20at 07:06; Start 12/13/20 at 10:00 Atorvastatin Calcium (Lipitor) 10 mg QHS PO Last administered on 12/13/20at 20:37 ; Start 12/13/20 at 21:00 Montelukast Sodium (Singulair) 10 mg QHS PO Last administered on 12/13/20at 20:36; Start 12/13/20 at 21:00 Olanzapine (ZyPREXA) 15 mg QHS PO Last administered on 12/13/20at 20:35; Start 12/13/20 at 21:00 Quetiapine Fumarate (SEROquel) 500 mg QHS PO Last administered on 12/13/20at 20:36; Start 12/13/20 at 21:00 Trazodone HCl (Desyrel) 50 mg HS PO Last administered on 12/13/20at 20:36; Start 12/13/20 at 21:00 Warfarin Sodium (Coumadin) 5 mg DAILY16 PO Last administered on 12/13/20at 14:44; Start 12/13/20 at 16:00 Vitals/I & O Vital Sign - Last 24 Hours 12/13/20 12/13/20 12/13/20 12/13/20 10:11 10:38 11:14 14:44 Temp 97.8 97.8 Pulse 62 Resp 16 B/P (MAP) 138/67 (90) Pulse Ox 97 94 94 94 O2 Delivery Room Air Room Air Room Air Room Air 12/13/20 12/13/20 12/13/20 12/13/20 14:46 15:44 16:16 19:34 Temp 97.5 98.4 97.5 98.4 Pulse 69 75 Resp 17 18 B/P (MAP) 115/58 (77) 141/68 (92) Pulse Ox 95 95 95 96 O2 Delivery Room Air Room Air Room Air Room Air 12/13/20 12/13/20 12/13/20 12/13/20 20:00 20:25 20:36 20:37 Resp 18 18 Pulse Ox 95 95 95 O2 Delivery Room Air Room Air Room Air Room Air 12/13/20 12/13/20 12/13/20 12/14/20 22:00 22:00 22:59 03:00 Temp 97.8 99.0 97.8 99.0 Pulse 70 62 Resp 18 18 18 18 B/P (MAP) 110/67 (81) 121/70 (87) Pulse Ox 94 94 93 94 O2 Delivery Room Air Room Air Room Air Room Air 12/14/20 12/14/20 12/14/20 12/14/20 07:00 07:06 08:42 08:42 Temp 97.5 97.5 Pulse 64 64 64 Resp 16 B/P (MAP) 124/57 (79) 124/57 124/57 Pulse Ox 93 96 O2 Delivery Room Air Room Air Intake and Output 12/13/20 12/13/20 12/14/20 15:00 23:00 07:00 Intake Total 180 ml 420 ml 120 ml Output Total 500 ml 225 ml Balance 180 ml -80 ml -105 ml IMMANUEL ALTMAN MD Dec 14, 2020 10:02
--- NOTE | 2020-12-14 10:48 | SNU/HH DC ---
DISCHARGE WITH HOME HEALTH DISCHARGE INFORMATION: Condition on Discharge: Stable HOME HEALTH: Face to Face: I certify this patient is under my care and that I, or a nurse practitioner or physician's commercial escrow assistant working with me, had a face to face encounter that meets the physician face to face encounter requirements with this patient on []. Medical Complications: Other (Aortic valve replacement, atrial fibrillation, weakness) RN For Eval/Treatment: Yes Pt Meets Homebound Status: Poor coordination w/ amb. POST DISCHARGE ORDERS: Activity Instructions for Disc: Activity as tolerated Weight Bearing Status after Di: Full weight bearing DIET AFTER DISCHARGE: Cardiac Wound/Incision Care: No wound care needed DC TO SNF OTHER: Suicide precautions. She has one-to-one sitter CHECKS AFTER DISCHARGE: Checks after discharge: Check blood press - daily, Check your Temp as needed FOLLOW-UP: PCP to follow Home Health: Yes Follow up with: in 1 week Follow Up With: Heating And Ventilating Drafter DC TO SNF LABS: PT /inr mon and days weekly ,keep inr 2-3. TREATMENT/EQUIPMENT ORDERS: Adaptive Equipment Issued: Cane, Front wheeled walker CERTIFICATION STATEMENT: Certification Statement: Certification Statement: Based on the above finding, I certify that this patient is confined to the home and needs intermittent care home care, physical therapy and/or speech therapy, or continues to need occupational therapy.~ This patient is under my care, and I have initiated the establishment of the plan of care.~ This patient will be followed by myself or a community physician who will periodically review the plan of care. Home Meds Active Scripts Nitroglycerin (NITROSTAT) 0.4 Mg Tab.subl, 0.4 MG SL PRN Q5MIN PRN for CHEST PAIN, #25 TAB Prov:HARRY DE LA VEGA MD 12/14/20 Hydrocodone Bit/Acetaminophen (HYDROCODONE-APAP 5-325 ) 1 Tab Tablet, 1 TAB PO PRN Q6HRS PRN for PAIN for 7 Days, #20 TAB Prov:HARRY DE LA VEGA MD 12/14/20 Atorvastatin Calcium (ATORVASTATIN CALCIUM) 10 Mg Tablet, 10 MG PO QHS, #30 TAB Prov:DARRYL WATSON MAINTENANCE FITTER 10/23/14 Reported Medications Montelukast Sodium (Montelukast Sodium) 10 Mg Tablet, 1 TAB PO QHS for congestion 12/13/20 Levothyroxine Sodium (LEVOTHYROXINE SODIUM) 25 Mcg Tablet, 1 TAB PO DAILY for hypothyroid 12/13/20 Tramadol Hcl (TRAMADOL HCL) 50 Mg Tablet, 1 TAB PO PRN Q12HR PRN for PAIN 12/13/20 Albuterol Sulfate (Proair Hfa) 8.5 Gm Hfa.aer.ad, 1 PUFF IH Q4HRS for wheezing 12/13/20 Omeprazole (OMEPRAZOLE) 40 Mg Capsule.dr, 1 CAP PO DAILY for GERD 12/13/20 Furosemide (FUROSEMIDE) 20 Mg Tablet, 1 TAB PO DAILY for chf 12/13/20 Potassium Chloride (KLOR-CON M20) 20 Meq Tab.er.prt, 1 TAB PO BID for supplement 12/13/20 Quetiapine Fumarate (QUETIAPINE FUMARATE) 200 Mg Tablet, 2.5 TAB PO QHS for depression 12/12/20 Divalproex Sodium (DIVALPROEX SODIUM) 500 Mg Tablet.dr, 500 MG PO BID, TAB 07/21/19 Fluoxetine Hcl (FLUOXETINE HCL) 40 Mg Capsule, 40 MG PO DAILY for depression, CAP 07/20/19 Trazodone Hcl (TRAZODONE HCL) 50 Mg Tablet, 50 MG PO HS for insomnia, TAB 07/20/19 Isosorbide Mononitrate (ISOSORBIDE MONONITRATE ER) 30 Mg Tab.er.24h, 1 TAB PO DAILY, #30 TAB 5 Refills 05/04/18 Warfarin Sodium (WARFARIN SODIUM) 5 Mg Tablet, 1 TAB PO DAILY, #90 TAB 1 Refill 05/04/18 Olanzapine (ZYPREXA) 15 Mg Tablet, 1 TAB PO QHS, #30 TAB 02/20/17 Lisinopril (LISINOPRIL) 20 Mg Tablet, 1 TAB PO DAILY, #30 TAB 5 Refills 02/20/17 HARRY DE LA VEGA MD Dec 14, 2020 10:48
--- NOTE | 2020-12-14 10:56 | PDOC ---
IM PROGRESS NOTES- Subjective Subjective No complaints of pain or dyspnea. Objective Vitals/I&O Vital Signs Date Time Temp Pulse Resp B/P (MAP) Pulse Ox O2 Delivery O2 Flow Rate FiO2 12/14/20 08:42 64 124/57 12/14/20 07:06 96 Room Air 12/14/20 07:00 97.5 16 97.5 I & O 12/13/20 12/13/20 12/14/20 15:00 23:00 07:00 Intake Total 180 ml 420 ml 120 ml Output Total 500 ml 225 ml Balance 180 ml -80 ml -105 ml Physical Exam Physical Exam General appearance - alert, and in no distress and oriented to person, place, and time Mental Status - alert, oriented to person, place, and time, affect appropriate to mood Head - normal Chest -decreased breath sounds at bases Heart - S1 and S2 normal Abdomen - soft, non tender Extremities - no pedal edema Labs Laboratory Tests Test 12/14/20 03:50 Prothrombin Time 19.8 SEC (11.7-14.0) H Prothrombin Time INR 1.7 (0.8-1.1) H Meds Current Medications Medications (Trade) Dose Ordered Sig/Galilea Route PRN Reason Start Time Stop Time Status Last Admin Dose Admin Atorvastatin Calcium (Lipitor) 10 mg QHS PO 12/13/20 21:00 12/13/20 20:37 Montelukast Sodium (Singulair) 10 mg QHS PO 12/13/20 21:00 12/13/20 20:36 Trazodone HCl (Desyrel) 50 mg HS PO 12/13/20 21:00 12/13/20 20:36 Warfarin Sodium (Coumadin) 5 mg DAILY16 PO 12/13/20 16:00 12/13/20 14:44 Olanzapine (ZyPREXA) 15 mg QHS PO 12/13/20 21:00 12/13/20 20:35 Quetiapine Fumarate (SEROquel) 500 mg QHS PO 12/13/20 21:00 12/13/20 20:36 Assessment Assessment 1. Chest pain, for cardiac evaluation. 2. Slightly trending troponin. 3. History of cardiac stents, last cardiac catheterization shows patent stents, last year. 4. History of mechanical aortic valve, on Coumadin. 5. Anxiety, depression. 6. Gastroesophageal reflux disease. As per shipyard painter helper patient has atypical chest pain. Troponin was trending down. Echocardiogram The left ventricular systolic function is normal and the ejection fraction is within normal range. The Ejection Fraction is 55%. There is grossly normal LV segmental wall motion. There is a mechanical aortic valve prosthesis. The prosthetic aortic valve appears grossly normal. Calculated aortic valve area is 1.25 cm2 with maximum pressure gradient of 61 mmHg and mean pressure gradient of 34 mmHg. (Stable compared to 1 year ago) The ascending aorta is mildly dilated measuring 4 cm. Okay to discharge patient home with home health services. INR is 1.7 so I will give her Lovenox 100 mg subcu x1. Continue Coumadin 5 mg daily at home. Home health services will check the pro time on Mondays and . Follow-up with Dr. Hudson in 1 week. Discharge management 35 minutes. Plan Plan For more details regarding further plans, please refer to the orders. Justifications for Admission Other Justification HARRY DE LA VEGA MD Dec 14, 2020 10:56
[2020-12-14 11:00] VITALS: BP 109/57
--- NOTE | 2020-12-14 13:31 | NUR ---
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 DISCHARGE EDUCATION GIVEN TO THE PT AND INSTRUCTIONS ON FOLLOW UP. DRS APPTS AND MEDICATION INFORMATION GIVEN ALSO COMPLIANCE AND FOLLOW UP EDUCATION GIVEN. PT WILL RESUME HOME HEALTH WITH [facility]. PT WHEELED OUT TO MAIN ENTRANCE WHER TH EPTS FREDY ETO PICK HER UP.
--- NOTE | 2020-12-15 09:51 | PDOC ---
Provider Note Date of Service: DATE: 12/15/20 TIME: 09:51 Provider Note DISCHARGE SUMMARY DICTATED.#[id number]. Justifications for Admission Other Justification NICOLE SMITH MD Dec 15, 2020 09:51
--- NOTE | 2020-12-15 20:43 | DS ---
DATE OF DISCHARGE: 12/14/2020 REASON FOR ADMISSION TO THE HOSPITAL: Chest pain for cardiac evaluation. CONSULTATION: Dr. Rasmussen. PROCEDURES DONE: Echocardiogram. HISTORY AND HOSPITAL COURSE: The patient is a 60-year-old female with history of mechanical aortic valve and she also has a pacemaker and also history of coronary artery disease in the past. Last catheterization was last year, shows no blockages. Came with chest pain and a troponin was barely at the minimal elevation. The patient was seen by Cardiology and because the cardiac cath was normal, decided not to pursue further testing at this time. Echocardiogram shows good ejection fraction 55%, normal left ventricular function, mechanical aortic valve prosthesis normal and it was felt that she could do outpatient stress test. Her INR was good at 2.5. Cardiac catheterization on 01/10 shows 30% LAD lesion unchanged from previously patent stents and she had a right coronary stent, which was patent and the patient was discharged home. Follow as outpatient. FINAL DIAGNOSES: 1. Chest pain. Troponin was barely elevated to 0.1. Cardiac catheterization last year shows no major blockages. 2. Mechanical aortic valve, on Coumadin. INR is normal. 3. Good left ventricular function on echocardiogram. 4. Other chronic medical conditions including anxiety, depression, bipolar, reflux and she also has a pacemaker. DISPOSITION: Home, outpatient stress test and continue medical management. NICOLE SMITH MD DR: ISAMAR/cori JOB#: [id number] / [id number]
== END 2020-12-14 14:42 | disposition still patient (30) ==
LOC: ER 19:48 → 2 NORTH 22:19
PROVIDERS: ADMIT Internal Medicine; ATTEND Internal Medicine
DX: R07.89 Other chest pain (principal); R77.8 Other specified abnormalities of plasma proteins; F41.9 Anxiety disorder, unspecified; F31.9 Bipolar disorder, unspecified; F20.9 Schizophrenia, unspecified; E03.9 Hypothyroidism, unspecified; E78.5 Hyperlipidemia, unspecified; I11.0 Hypertensive heart disease with heart failure; I50.9 Heart failure, unspecified; I48.0 Paroxysmal atrial fibrillation; I49.5 Sick sinus syndrome; I35.0 Nonrheumatic aortic (valve) stenosis; I25.2 Old myocardial infarction; I25.10 Atherosclerotic heart disease of native coronary artery without angina pectoris; J44.9 Chronic obstructive pulmonary disease, unspecified; K21.9 Gastro-esophageal reflux disease without esophagitis; K27.4 Chronic or unspecified peptic ulcer, site unspecified, with hemorrhage; M19.90 Unspecified osteoarthritis, unspecified site; Z79.01 Long term (current) use of anticoagulants; Z86.73 Personal history of transient ischemic attack (TIA), and cerebral infarction without residual deficits; Z87.11 Personal history of peptic ulcer disease; Z87.891 Personal history of nicotine dependence; Z90.710 Acquired absence of both cervix and uterus; Z95.0 Presence of cardiac pacemaker; Z95.1 Presence of aortocoronary bypass graft; Z95.2 Presence of prosthetic heart valve; Z95.5 Presence of coronary angioplasty implant and graft; Z90.49 Acquired absence of other specified parts of digestive tract; Z98.890 Other specified postprocedural states
CPT/HCPCS: 36415; 71046; 80048; 83880; 84484; 85025; 85610; 93005; 93306; 94640; 96372; 96374; 99285; G0378; J1650; J2270; J7613; G0379

== ENCOUNTER 2020-12-30 22:32 | Emergency (ER) | payer MEDICARE ==
[~2020-12-30] VITALS: Ht 154.9 cm; Wt 91.8 kg
[~2020-12-30 22:32] MED LIST changes: +ALBU2.5V8 IH; +FURO20TA3 PO; +HYDR-2761 PO; +LEVO25TA4 PO; +MONT10TA20 PO; +QUET200T PO
[2020-12-30] MEDS ORDERED: ACETAMINOPHEN 500 MG TABLET PO ONE (22:45)
--- NOTE | 2020-12-30 23:25 | RAD ---
Study: XR KNEE 3 VIEWS_RT Indication: Knee pain. Comparison: None recently. Findings: No acute fracture. Alignment is maintained. Small medial joint line and patellofemoral compartment os teophytes. Femorotibial compartment joint space height is maintained. Small knee joint effusion. Impression: 1. No acute osseous abnormality. 2. Mild arthrosis at the medial and patellofemoral compartments. 3. Small knee joint effusion. Electronically signed by: GINO BUSTOS MD (12/30/2020 11:22 PM) [facility]
--- NOTE | 2020-12-30 23:27 | RAD ---
Study: XR CHEST 1V Indication: Shortness of breath. Comparison: 12/12/2020 Findings: Left chest wall dual-lead pacer. Median sternotomy wires. Unchanged cardiomediastinal silhouette. No focal airspace opacity, layering effusion or pneumothorax. Granuloma projects beneath the aortic k nob. Impression: No acute radiographic abnormality of the chest. No relevant change from the 12/12/2020 comparison. Electronically signed by: GINO BUSTOS MD (12/30/2020 11:24 PM) [facility]
--- NOTE | 2020-12-30 23:48 | EKG ---
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
[2020-12-31 01:32] LABS: BASO % 0 % (0-3); EOS # 0.1 x10^3/uL (0.0-0.7); EOS % 2 % (0-3); HEMATOCRIT 40.4 % (36.0-47.0); HEMOGLOBIN 13.8 g/dL (12.0-15.5); LYMPH # 1.4 x10^3/uL (1.0-4.8); LYMPH % 25 % (24-48); MEAN CORPUSCULAR HEMOGLOBIN 28 pg (25-35); MEAN CORPUSCULAR HGB CONC 34 g/dL (31-37); MEAN CORPUSCULAR VOLUME 81 fL (79-100); MONO # 0.5 x10^3/uL (0.0-1.1); MONO % 9 % (0-9); NEUT # 3.7 x10^3/uL (1.8-7.7); NEUT % 64 % (31-73); PLATELET COUNT 130 x10^3/uL (140-400); RED BLOOD COUNT 4.98 x10^6/uL (3.50-5.40); RED CELL DISTRIBUTION WIDTH 15.8 % (11.5-14.5); WHITE BLOOD COUNT 5.8 x10^3/uL (4.0-11.0)
[2020-12-31 02:25] LABS: CALCIUM 8.6 mg/dL (8.5-10.1); CREATININE 0.7 mg/dL (0.6-1.0); GFR 85.4
[2020-12-31 02:29] LABS: ALBUMIN/GLOBULIN RATIO 0.9 (1.0-1.7); MAGNESIUM 1.9 mg/dL (1.8-2.4); TOTAL BILIRUBIN 0.3 mg/dL (0.2-1.0); TOTAL PROTEIN 6.4 g/dL (6.4-8.2)
--- NOTE | 2020-12-31 02:50 | PHYS DOC ---
Past Medical History Past Medical History: A-Fib, Anxiety, Bipolar, CVA, Hypertension, [place], Renal Disease, Schizophrenia, Other Additional Past Medical Histor: HALLUCINATIONS, AORTIC VALVE DISORDERS, mi 1996, kidney problems Past Surgical History: Cholecystectomy, Pacemaker Additional Past Surgical Histo: AVR, defibrillator Smoking Status: Never Smoker Alcohol Use: None Drug Use: None Adult General Chief Complaint Chief Complaint: MULTIPLE COMPLAINTS [facility] HPI Patient is a 60 year old female with complicated past medical history with frequent visits to the emergency department now presents emergency department complaining of new onset of chest pain and knee pain. Patient states that earlier yesterday morning she had an episode when she was in her garden she was getting up and twisted her ankle and right knee and since been having pain of the right knee with difficulty walking. Patient also states that over the last 2 days she has been developing worsening sensation of left anterior chest pain without any associated cough, dizziness or lightheadedness. Denies any reproducibility. Denies any aggravating alleviating factors. Review of Systems Review of Systems Constitutional: Denies fever or chills [] Eyes: Denies change in visual acuity, redness, or eye pain [] HENT: Denies nasal congestion or sore throat [] Respiratory: Denies cough or shortness of breath [] Cardiovascular: No additional information not addressed in HPI [] GI: Denies abdominal pain, nausea, vomiting, bloody stools or diarrhea [] : Denies dysuria or hematuria [] Musculoskeletal: Denies back pain or joint pain [] Integument: Denies rash or skin lesions [] Neurologic: Denies headache, focal weakness or sensory changes [] Endocrine: Denies polyuria or polydipsia [] All other systems were reviewed and found to be within normal limits, except as documented in this note. Current Medications Current Medications Current Medications Medications (Trade) Dose Ordered Sig/Galilea Start Time Stop Time Status Last Admin Dose Admin Acetaminophen (Tylenol) 1,000 mg 1X ONCE 12/30/20 22:45 12/30/20 22:46 DC 12/30/20 23:37 1,000 MG Allergies Allergies Allergies Coded Allergies Type Severity Reaction Last Updated Verified Sulfa (Sulfonamide Antibiotics) Allergy Severe rash, tongue swelling 04/15/15 Yes Iodinated Contrast Media Allergy Intermediate rash 04/15/15 Yes Penicillins Allergy Intermediate Hives 04/15/15 Yes aspirin Allergy Intermediate Hives 04/15/15 Yes codeine Allergy Intermediate Hives; SEE COMMENT 06/08/15 Yes diphenhydramine HCl Allergy Intermediate rash 12/19/13 Yes latex Allergy Intermediate Rash 12/18/13 Yes Physical Exam Physical Exam Constitutional: Well developed, well nourished, no acute distress, non-toxic appearance. [] HENT: Normocephalic, atraumatic, bilateral external ears normal, oropharynx moist, no oral exudates, nose normal. [] Eyes: PERRLA, EOMI, conjunctiva normal, no discharge. [] Neck: Normal range of motion, no tenderness, supple, no stridor. [] Cardiovascular:Heart rate regular rhythm, no murmur [] Lungs & Thorax: Bilateral breath sounds clear to auscultation [] Abdomen: Bowel sounds normal, soft, no tenderness, no masses, no pulsatile masses. [] Skin: Warm, dry, no erythema, no rash. [] Back: No tenderness, no CVA tenderness. [] Extremities: No tenderness, no cyanosis, no clubbing, ROM intact, no edema. [] Neurologic: Alert and oriented X 3, normal motor function, normal sensory function, no focal deficits noted. [] Psychologic: Affect normal, judgement normal, mood normal. [] Current Patient Data Vital Signs Vital Signs Date Time Temp Pulse Resp B/P (MAP) Pulse Ox O2 Delivery O2 Flow Rate FiO2 12/31/20 02:08 70 169/72 (104) 94 Room Air 12/30/20 22:35 98.9 18 98.9 Lab Values Laboratory Tests Test 12/31/20 01:15 12/31/20 01:53 White Blood Count 5.8 x10^3/uL (4.0-11.0) Red Blood Count 4.98 x10^6/uL (3.50-5.40) Hemoglobin 13.8 g/dL (12.0-15.5) Hematocrit 40.4 % (36.0-47.0) Mean Corpuscular Volume 81 fL (79-100) Mean Corpuscular Hemoglobin 28 pg (25-35) Mean Corpuscular Hemoglobin Concent 34 g/dL (31-37) Red Cell Distribution Width 15.8 % (11.5-14.5) H Platelet Count 130 x10^3/uL (140-400) L Neutrophils (%) (Auto) 64 % (31-73) Lymphocytes (%) (Auto) 25 % (24-48) Monocytes (%) (Auto) 9 % (0-9) Eosinophils (%) (Auto) 2 % (0-3) Basophils (%) (Auto) 0 % (0-3) Neutrophils # (Auto) 3.7 x10^3/uL (1.8-7.7) Lymphocytes # (Auto) 1.4 x10^3/uL (1.0-4.8) Monocytes # (Auto) 0.5 x10^3/uL (0.0-1.1) Eosinophils # (Auto) 0.1 x10^3/uL (0.0-0.7) Basophils # (Auto) 0.0 x10^3/uL (0.0-0.2) Sodium Level 143 mmol/L (136-145) Potassium Level 4.0 mmol/L (3.5-5.1) Chloride Level 105 mmol/L (98-107) Carbon Dioxide Level 29 mmol/L (21-32) Anion Gap 9 (6-14) Blood Urea Nitrogen 23 mg/dL (7-20) H Creatinine 0.7 mg/dL (0.6-1.0) Estimated GFR (Cockcroft-Gault) 85.4 BUN/Creatinine Ratio 33 (6-20) H Glucose Level 99 mg/dL (70-99) Calcium Level 8.6 mg/dL (8.5-10.1) Magnesium Level 1.9 mg/dL (1.8-2.4) Total Bilirubin 0.3 mg/dL (0.2-1.0) Aspartate Amino Transferase (AST) 12 U/L (15-37) L Alanine Aminotransferase (ALT) 14 U/L (14-59) Alkaline Phosphatase 75 U/L (46-116) Troponin I Quantitative < 0.017 ng/mL (0.000-0.055) Total Protein 6.4 g/dL (6.4-8.2) Albumin 3.0 g/dL (3.4-5.0) L Albumin/Globulin Ratio 0.9 (1.0-1.7) L Lipase 54 U/L (73-393) L Laboratory Tests 12/31/20 01:15 Laboratory Tests 12/31/20 01:53 EKG EKG [] Radiology/Procedures Radiology/Procedures [] Course & Med Decision Making Course & Med Decision Making Pertinent Labs and Imaging studies reviewed. (See chart for details) 6-year-old female presented to the emergency department complaint of new onset of chest pain. Will obtain ACS work-up to make sure there is no significant cardiac or pulmonary etiology. In addition complaining of right-sided knee pain likely secondary to a strain. Will obtain x-ray and reevaluate Dragon Disclaimer Dragon Disclaimer This electronic medical record was generated, in whole or in part, using a voice recognition dictation system. Departure Departure Impression: Primary Impression: Strain of right knee Disposition: HOME / SELF CARE / HOMELESS Condition: GOOD Referrals: NICOLE SMITH MD (PCP) Patient Instructions: Chest Pain (Nonspecific) Additional Instructions: EMERGENCY DEPARTMENT GENERAL DISCHARGE INSTRUCTIONS Thank you for coming to [facility] Emergency Department (ED) today and trusting us with you care. We trust that you had a positive experience in our Emergency Department. If you wish to speak to the department management, you may call the Director at [phone]. YOUR FOLLOW UP INSTRUCTIONS ARE FOLLOWS: 1. Do you have a private Doctor? If you do not have a private doctor, please ask for a resource list of physicians or clinics that may be able to assist you with follow up care. 2. The Emergency Physicain has interpreted your x-rays. The X-Ray specialist will also review them. If there is a change in the findings, you will be notified in 48 hours when at all possible. 3. A lab test or culture has been done, your results will be reviewed and you will be notified if you need a change in treatment. ADDITIONAL INSTRUCTIONS AND INFORMATION: 1. Your care today has been supervised by a physician who is specially trained in emergency care. Many problems require more than one evaluation for a complete diagnosis and treatment. We recommend that you schedule your follow up appointment as recommended to ensure complete treatment of you illness or injury. If you are unable to obtain follow up care and continue to have a problem, or if your condition worsens, we recommend that you return to the ED. 2. We are not able to safely determine your condition over the phone nor are we able to give sound medical advice over the phone. For these safety reasons, if you call for medical advice we will ask you to come to the ED for further evaluation. 3. If you have any questions regarding these discharge instructions please call the ED at [phone]. SAFETY INFORMATION: In the interest of safety, wellness, and injury prevention; we encourage you to wear your sealbelt, if you smoke; quite smoking, and we encourage family to use a protective helmet for bicycling and other sporting events that present an increased risk for head injury. IF YOUR SYMPTOMS WORSEN OR NEW SYMPTOMS DEVELOP, OR YOU HAVE CONCERNS ABOUT YOUR CONDITION; OR IF YOUR CONDITION WORSENS WHILE YOU ARE WAITING FOR YOUR FOLLOW UP APPOINTMENT; EITHER CONTACT YOUR PRIMARY CARE DOCTOR, THE PHYSICIAN WHOSE NAME AND NUMBER YOU WERE GIVEN, OR RETURN TO THE ED IMMEDIATELY. COLBY THEODORE MD Dec 31, 2020 02:50
[2020-12-31 03:00] VITALS: BP 169/79
== END 2020-12-31 03:05 | disposition home or self-care (01) ==
LOC: ER 22:32
DX: S76.811A Strain of other specified muscles, fascia and tendons at thigh level, right thigh, initial encounter (principal); R07.89 Other chest pain; R20.2 Paresthesia of skin; R26.2 Difficulty in walking, not elsewhere classified; I48.20 Chronic atrial fibrillation, unspecified; F41.9 Anxiety disorder, unspecified; F31.9 Bipolar disorder, unspecified; I10 Essential (primary) hypertension; I25.2 Old myocardial infarction; F20.9 Schizophrenia, unspecified; Z86.73 Personal history of transient ischemic attack (TIA), and cerebral infarction without residual deficits; Z90.49 Acquired absence of other specified parts of digestive tract; Z95.0 Presence of cardiac pacemaker; Z98.890 Other specified postprocedural states; Z88.2 Allergy status to sulfonamides; Z91.041 Radiographic dye allergy status; Z88.0 Allergy status to penicillin; Z88.5 Allergy status to narcotic agent; Z88.8 Allergy status to other drugs, medicaments and biological substances; X58.XXXA Exposure to other specified factors, initial encounter; Y93.89 Activity, other specified; Y92.89 Other specified places as the place of occurrence of the external cause; Y99.8 Other external cause status
CPT/HCPCS: 36415; 71045; 73562; 80053; 83690; 83735; 84484; 85025; 93005; 99285

== ENCOUNTER 2021-03-07 18:23 | Emergency (ER) | payer MEDICARE, MEDICAID ==
[~2021-03-07] VITALS: Ht 154.9 cm; Wt 91.4 kg
[~2021-03-07 18:23] MED LIST changes: +MIRT-8 PO; -MIRT30TA3 PO; -OMEP40CA45 PO; +OMEP40CA7 PO
[2021-03-07] MEDS ORDERED: HYDROcodone/APAP 5/325MG 1 TAB TABLET PO ONE (21:00)
--- NOTE | 2021-03-07 21:17 | RAD ---
XR FOOT_RIGHT 3 VIEWS, XR EXAM OF ANKLE_RIGHT 3VIEWS DATE: 03/07/2021 9:10 PM INDICATION: R knee hip ankle and foot pain after fall COMPARISON: None. FINDINGS: Bones: Diffuse osseous demineralization. Nondisplaced fracture of the lateral malleolus. Posterior an d plantar calcaneal enthesophytes. Joints: The ankle mortise is congruent. No widening of the distal tibiofibular syndesmosis. Miscellaneous: None. IMPRESSION: Acute nondisplaced fracture of the lateral malleolus Electronically signed by: Mario Bob MD (03/07/2021 9:15 PM) [facility]
--- NOTE | 2021-03-07 21:17 | RAD ---
XR FOOT_RIGHT 3 VIEWS, XR EXAM OF ANKLE_RIGHT 3VIEWS DATE: 03/07/2021 9:10 PM INDICATION: R knee hip ankle and foot pain after fall COMPARISON: None. FINDINGS: Bones: Diffuse osseous demineralization. Nondisplaced fracture of the lateral malleolus. Posterior an d plantar calcaneal enthesophytes. Joints: The ankle mortise is congruent. No widening of the distal tibiofibular syndesmosis. Miscellaneous: None. IMPRESSION: Acute nondisplaced fracture of the lateral malleolus Electronically signed by: Mario oBb MD (03/07/2021 9:15 PM) [facility]
--- NOTE | 2021-03-07 21:22 | RAD ---
Right hip 2 views with one view pelvis, Bilateral knees 3 views each. HISTORY: knee and right hip pain after a fall Right hip 2 views with one view pelvis Single view was taken of the pelvis. There is no acute pelvic fracture. Left hip appears unremarkable . AP and lateral views the right hip show no evidence of an acute fracture or osseous abnormality. Right knee 3 views were taken of the right knee. There is mild spurring in the medial joint compartment from mil d arthritis. There is no acute fracture. The brace obscures visualization to mild degree. Left knee 3 views of the left knee show no evidence of an acute fracture or osseous abnormality. There is no leonela int effusion left knee. IMPRESSION: 1. Negative left knee. 2. No pelvic fracture noted. 3. No right hip fracture noted. 4. Mild arthritis right knee without evidence of an acute fracture. Electronically signed by: Fredy Woodall MD (03/07/2021 9:19 PM) [facility]
--- NOTE | 2021-03-07 22:07 | ED.ADGEN ---
Past Medical History Past Medical History: A-Fib, Anxiety, Bipolar, CVA, Hypertension, [place], Renal Disease, Schizophrenia, Other Additional Past Medical Histor: HALLUCINATIONS, AORTIC VALVE DISORDERS, mi 1996, kidney problems Past Surgical History: Cholecystectomy, Coronary Bypass Surgery, Pacemaker Additional Past Surgical Histo: AVR, defibrillator Smoking Status: Never Smoker Alcohol Use: None Drug Use: None General Adult EDM: Chief Complaint: MECHANICAL FALL HPI: HPI: Patient is a 60 year old female, accompanied by her , who presents to the emergency department with complaints of right lateral ankle pain and swelling, right knee, right foot, and right hip pain after she slipped while walking on her handicap ramp and fell. Patient states she did not hit her head or lose consciousness, she denies any neck or back pain. Patient reports she does take Coumadin daily after having aortic valve replacement. She denies any nausea, vomiting, abdominal pain numbness, tingling, or decreased sensation. Patient denies any dizziness, chest pain, or syncope prior to the fall. She currently rates her pain a 9 out of 10 on the pain scale, the pain is worse if the tender areas are touched the most painful area is her right ankle. She denies taking anything for relief of the pain prior to arrival. Review of Systems: Review of Systems: Complete ROS is negative unless otherwise noted in HPI. Current Medications: Current Medications Medications (Trade) Dose Ordered Sig/[facility] Start Time Stop Time Status Last Admin Dose Admin Acetaminophen/ Hydrocodone Bitart (Lortab 5/325) 1 tab 1X ONCE 03/07/21 21:00 03/07/21 21:01 DC 03/07/21 21:10 1 TAB Allergies: Allergies: Allergies Coded Allergies Type Severity Reaction Last Updated Verified Sulfa (Sulfonamide Antibiotics) Allergy Severe rash, tongue swelling 04/15/15 Yes Iodinated Contrast Media Allergy Intermediate rash 04/15/15 Yes Penicillins Allergy Intermediate Hives 04/15/15 Yes aspirin Allergy Intermediate Hives 04/15/15 Yes codeine Allergy Intermediate Hives; SEE COMMENT 06/08/15 Yes diphenhydramine HCl Allergy Intermediate rash 12/19/13 Yes latex Allergy Intermediate Rash 12/18/13 Yes Physical Exam: PE: See Above Constitutional: Well developed, well nourished, no acute distress, non-toxic appearance. [] HENT: Normocephalic, atraumatic, bilateral external ears normal, nose normal. [] Eyes: PERRLA, EOMI, conjunctiva normal, no discharge. [] Neck: Normal range of motion, no stridor. [] Cardiovascular:Heart rate regular rhythm Lungs & Thorax: Respirations even and unlabored, no retractions, no respiratory distress Abdomen: soft, no tenderness Skin: Warm, dry, no erythema, no rash. [] Extremities: Right ankle: Lateral tenderness to palpation, no obvious deformity, no crepitus, 2+ edema, cap refill less than 2 seconds, sensation intact, no cyanosis, ROM limited due to pain Right foot: Diffuse tenderness to palpation, no obvious deformity, no crepitus, 2+ edema, cap refill less than 2 seconds, sensation intact, no cyanosis, ROM limited due to pain Right knee: Anterior tenderness to palpation without obvious deformity or crepitus, no edema, sensation intact, ROM limited due to pain Right hip: Lateral tenderness to palpation without obvious deformity, shortening, or rotation, sensation intact, ROM limited due to pain Neurologic: Alert and oriented X 3, normal sensory, no focal deficits noted. [] Psychologic: Affect normal, judgement normal, mood normal. [] Current Patient Data: Vital Signs: Vital Signs Date Time Temp Pulse Resp B/P (MAP) Pulse Ox O2 Delivery O2 Flow Rate FiO2 03/07/21 21:10 24 97 03/07/21 19:50 98.4 59 141/75 (97) 98.4 03/07/21 19:08 Room Air EKG: EKG: [] Heart Score: C/O Chest Pain: No Risk Factors: Risk Factors: DM, Current or recent (<one month) smoker, HTN, HLP, family history of CAD, obesity. Risk Scores: Score 0 - 3: 2.5% MACE over next 6 weeks - Discharge Home Score 4 - 6: 20.3% MACE over next 6 weeks - Admit for Clinical Observation Score 7 - 10: 72.7% MACE over next 6 weeks - Early Invasive Strategies Radiology/Procedures: Radiology/Procedures: Right hip 2 views with one view pelvis, Bilateral knees 3 views each. HISTORY: knee and right hip pain after a fall Right hip 2 views with one view pelvis Single view was taken of the pelvis. There is no acute pelvic fracture. Left hip appears unremarkable. AP and lateral views the right hip show no evidence of an acute fracture or o sseous abnormality. Right knee 3 views were taken of the right knee. There is mild spurring in the medial joint compartment from mild arthritis. There is no acute fracture. The brace obscures visualization to mild degree. Left knee 3 views of the left knee show no evidence of an acute fracture or osseous abnormality. There is no joint effusion left knee. IMPRESSION: 1. Negative left knee. 2. No pelvic fracture noted. 3. No right hip fracture noted. 4. Mild arthritis right knee without evidence of an acute fracture.[] XR FOOT_RIGHT 3 VIEWS, XR EXAM OF ANKLE_RIGHT 3VIEWS DATE: 03/07/2021 9:10 PM INDICATION: R knee hip ankle and foot pain after fall COMPARISON: None. FINDINGS: Bones: Diffuse osseous demineralization. Nondisplaced fracture of the lateral malleolus. Posterior and plantar calcaneal enthesophytes. Joints: The ankle mortise is congruent. No widening of the distal tibiofibular syndesmosis. Miscellaneous: None. IMPRESSION: Acute nondisplaced fracture of the lateral malleolus Electronically signed by: Mario Bob MD (03/07/2021 9:15 PM) [facility] Course & Med Decision Making: Course & Med Decision Making Pertinent Labs and Imaging studies reviewed. (See chart for details) [] Dragjason Disclaimer: Augustin Disclaimer: This electronic medical record was generated, in whole or in part, using a voice recognition dictation system. Departure Departure Impression: Primary Impression: Fx lateral malleolus-closed Additional Impressions: Fall Knee pain, right anterior Acute foot pain Acute hip pain Disposition: 01 HOME / SELF CARE / HOMELESS Condition: STABLE Referrals: NICOLE SMITH MD (PCP) MATTHIEU NEIL MD Patient Instructions: Ankle Fracture, [id number], Hip Pain, Knee Pain, [id number] Additional Instructions: Fill prescription(s) and use as directed. Recommend application of ice, elevation, and rest of affected extremity. Wear the splint that was placed and use your walker for ambulation to avoid bearing weight on the fractured extremi ty until follow up appointment. Follow-up with Dr. Neil next week, return to the ER if your symptoms worsen. Scripts Hydrocodone Bit/Acetaminophen (HYDROCODONE-APAP 5-325 ) 1 Tab Tablet 1 TAB PO PRN Q6HRS PRN for PAIN for 5 Days, #20 TAB 0 Refills Prov: SARATH ARAYA [employer] INSPECTOR 03/07/21 Splinting Splinting : Location: Right ankle Hand-Made Type: orthoglass Splint: Posterior stirrup Pre-Proc Neuro Vasc Exam: normal Post-Proc Neuro Vasc Exam: normal, unchanged from pre-exam Progress Patient tolerated procedure well, no complications Problem Qualifiers Primary Impression: Fx lateral malleolus-closed Encounter type: initial encounter Fracture alignment: nondisplaced Laterality: right Qualified Codes: S82.64XA - Nondisplaced fracture of lateral malleolus of right fibula, initial encounter for closed fracture Additional Impressions: Fall Encounter type: initial encounter Qualified Codes: W19.XXXA - Unspecified fall, initial encounter Acute foot pain Laterality: right Qualified Codes: M79.671 - Pain in right foot Acute hip pain Laterality: right Qualified Codes: M25.551 - Pain in right hip SARATH ARAYA [employer]AF[employer] INSPECTOR Mar 07, 2021 22:07
[2021-03-07] MEDS ORDERED: HYDR-2761 PO (22:27)
[2021-03-07 22:50] VITALS: BP 144/78
== END 2021-03-07 22:50 | disposition home or self-care (01) ==
LOC: ER 18:23
DX: S82.64XA Nondisplaced fracture of lateral malleolus of right fibula, initial encounter for closed fracture (principal); M79.671 Pain in right foot; M25.551 Pain in right hip; M25.561 Pain in right knee; F31.9 Bipolar disorder, unspecified; I48.91 Unspecified atrial fibrillation; I10 Essential (primary) hypertension; I25.2 Old myocardial infarction; F20.9 Schizophrenia, unspecified; Z95.0 Presence of cardiac pacemaker; Z95.1 Presence of aortocoronary bypass graft; Z90.49 Acquired absence of other specified parts of digestive tract; Z86.73 Personal history of transient ischemic attack (TIA), and cerebral infarction without residual deficits; Z88.0 Allergy status to penicillin; Z88.2 Allergy status to sulfonamides; Z88.5 Allergy status to narcotic agent; Z91.040 Latex allergy status; Z88.6 Allergy status to analgesic agent; W01.0XXA Fall on same level from slipping, tripping and stumbling without subsequent striking against object, initial encounter; Y93.01 Activity, walking, marching and hiking; Y92.89 Other specified places as the place of occurrence of the external cause; Y99.8 Other external cause status
CPT/HCPCS: 29515; 73502; 73610; 73630; 99284; 73562-50

== ENCOUNTER 2021-03-09 22:04 | Observation (INO) | payer MEDICARE, MEDICAID ==
[~2021-03-09] VITALS: Ht 157.5 cm; Wt 88.5 kg
--- NOTE | 2021-03-09 22:20 | ED.ADGEN ---
Past Medical History Past Medical History: A-Fib, Anxiety, Bipolar, CVA, Hypertension, DE, Renal Disease, Schizophrenia, Other Additional Past Medical Histor: HALLUCINATIONS, AORTIC VALVE DISORDERS, mi 1996, kidney problems Past Surgical History: Cholecystectomy, Coronary Bypass Surgery, Pacemaker Additional Past Surgical Histo: AVR, defibrillator Smoking Status: Never Smoker Alcohol Use: None Drug Use: None General Adult EDM: Chief Complaint: MECHANICAL FALL HPI: HPI: Patient is a 60 year old female brought in by EMS after a fall from standing. Fall was unwitnessed but she had a positive loss of consciousness. Patient states that she felt lightheaded and dizzy and took a step backwards before she fell onto her back. Complaining of head neck and back pain. Patient is anticoagulated on warfarin for A. fib and mechanical valve. Patient had a recent fall with a right ankle fracture. Review of Systems: Review of Systems: All other systems within normal limits except for as noted in the HPI Current Medications: Current Medications Medications (Trade) Dose Ordered Sig/Galilea Start Time Stop Time Status Last Admin Dose Admin Acetaminophen (Tylenol) 650 mg PRN Q4HRS PRN 03/10/21 00:00 03/10/21 23:59 DC 03/10/21 21:36 650 MG Fentanyl Citrate (Fentanyl 2ml Vial) 50 mcg PRN Q1HR PRN 03/10/21 00:00 03/10/21 23:59 DC 03/10/21 03:58 50 MCG Ondansetron HCl (Zofran) 4 mg PRN Q8HRS PRN 03/10/21 00:00 03/10/21 23:59 DC Allergies: Allergies: Allergies Coded Allergies Type Severity Reaction Last Updated Verified Sulfa (Sulfonamide Antibiotics) Allergy Severe rash, tongue swelling 04/15/15 Yes Iodinated Contrast Media Allergy Intermediate rash 04/15/15 Yes Penicillins Allergy Intermediate Hives 04/15/15 Yes aspirin Allergy Intermediate Hives 04/15/15 Yes codeine Allergy Intermediate Hives; SEE COMMENT 06/08/15 Yes diphenhydramine HCl Allergy Intermediate rash 12/19/13 Yes latex Allergy Intermediate Rash 12/18/13 Yes Physical Exam: PE: Constitutional: Well developed, well nourished, no acute distress, non-toxic a ppearance. [] HENT: Normocephalic, atraumatic, bilateral external ears normal, nose normal. [] Eyes: PERRLA, conjunctiva normal, no discharge. [] Neck: No rigidity, supple, no stridor. [] Cardiovascular: Regular rate and rhythm, brisk cap refill [] Lungs & Thorax: Non labored symmetric respirations, no tachypnea or respiratory distress [] Abdomen: Soft, nondistended. Skin: Warm, dry, no erythema, no rash. [] Back: Unremarkable Extremities: No deformities, range of motion grossly intact, no lower extremity edema [] Neurologic: Alert and oriented X 3, no focal deficits noted. [] Psychologic: Affect normal, judgement normal, mood normal. [] Current Patient Data: Labs: Laboratory Tests Test 03/09/21 22:50 03/10/21 00:40 White Blood Count 8.0 x10^3/uL (4.0-11.0) Red Blood Count 4.57 x10^6/uL (3.50-5.40) Hemoglobin 13.0 g/dL (12.0-15.5) Hematocrit 38.2 % (36.0-47.0) Mean Corpuscular Volume 84 fL (79-100) Mean Corpuscular Hemoglobin 28 pg (25-35) Mean Corpuscular Hemoglobin Concent 34 g/dL (31-37) Red Cell Distribution Width 14.9 % (11.5-14.5) H Platelet Count 155 x10^3/uL (140-400) Neutrophils (%) (Auto) 72 % (31-73) Lymphocytes (%) (Auto) 17 % (24-48) L Monocytes (%) (Auto) 8 % (0-9) Eosinophils (%) (Auto) 2 % (0-3) Basophils (%) (Auto) 0 % (0-3) Neutrophils # (Auto) 5.8 x10^3/uL (1.8-7.7) Lymphocytes # (Auto) 1.4 x10^3/uL (1.0-4.8) Monocytes # (Auto) 0.7 x10^3/uL (0.0-1.1) Eosinophils # (Auto) 0.2 x10^3/uL (0.0-0.7) Basophils # (Auto) 0.0 x10^3/uL (0.0-0.2) Prothrombin Time 18.7 SEC (11.7-14.0) H Prothrombin Time INR 1.6 (0.8-1.1) H Sodium Level 141 mmol/L (136-145) Potassium Level 4.2 mmol/L (3.5-5.1) Chloride Level 106 mmol/L (98-107) Carbon Dioxide Level 28 mmol/L (21-32) Anion Gap 7 (6-14) Blood Urea Nitrogen 14 mg/dL (7-20) Creatinine 0.7 mg/dL (0.6-1.0) Estimated GFR (Cockcroft-Gault) 85.4 BUN/Creatinine Ratio 20 (6-20) Glucose Level 113 mg/dL (70-99) H Calcium Level 8.5 mg/dL (8.5-10.1) Magnesium Level 1.7 mg/dL (1.8-2.4) L Total Bilirubin 0.5 mg/dL (0.2-1.0) Aspartate Amino Transferase (AST) 17 U/L (15-37) Alanine Aminotransferase (ALT) 17 U/L (14-59) Alkaline Phosphatase 82 U/L (46-116) Troponin I Quantitative < 0.017 ng/mL (0.000-0.055) SZ-Pst-T-Type Natriuretic Peptide 380 pg/mL (0-124) H Total Protein 6.3 g/dL (6.4-8.2) L Albumin 3.3 g/dL (3.4-5.0) L Albumin/Globulin Ratio 1.1 (1.0-1.7) Thyroid Stimulating Hormone (TSH) 2.632 uIU/mL (0.358-3.74) Urine Collection Type Unknown Urine Color Yellow Urine Clarity Clear Urine pH 6.5 (<5.0-8.0) Urine Specific Lolo <=1.005 (1.000-1.030) Urine Protein Negative mg/dL (NEG-TRACE) Urine Glucose (UA) Negative mg/dL (NEG) Urine Ketones (Stick) Negative mg/dL (NEG) Urine Blood Negative (NEG) Urine Nitrite Negative (NEG) Urine Bilirubin Negative (NEG) Urine Urobilinogen Dipstick 1.0 mg/dL (0.2 mg/dL) Urine Leukocyte Esterase Negative (NEG) Urine RBC 0 /HPF (0-2) Urine WBC Occ /HPF (0-4) Urine Squamous Epithelial Cells Mod /LPF Urine Bacteria Few /HPF (0-FEW) Urine Mucus Slight /LPF Laboratory Tests 03/09/21 22:50 Laboratory Tests 03/09/21 22:50 Vital Signs: Vital Signs Date Time Temp Pulse Resp B/P (MAP) Pulse Ox O2 Delivery O2 Flow Rate FiO2 03/10/21 00:53 60 114/57 (76) 92 Room Air 03/10/21 00:18 16 03/09/21 22:15 98.8 98.8 EKG: EKG: Sinus rhythm, heart rate 61 bpm, normal axis, no ST elevation depression, no ectopy. [] Heart Score: C/O Chest Pain: No HEART Score for Chest Pain: HEART Score for Chest Pain Response (Comments) Value History Slighlty/Non-Suspicious 0 ECG Normal 0 Age >45 - < 65 1 Risk Factors 1 or 2 Risk Factors 1 Troponin < Normal Limit 0 Total 2 Risk Factors: Risk Factors: DM, Current or recent (<one month) smoker, HTN, HLP, family history of CAD, obesity. Risk Scores: Score 0 - 3: 2.5% MACE over next 6 weeks - Discharge Home Score 4 - 6: 20.3% MACE over next 6 weeks - Admit for Clinical Observation Score 7 - 10: 72.7% MACE over next 6 weeks - Early Invasive Strategies Radiology/Procedures: Radiology/Procedures: [facility] [address] [place] [address] IMAGING REPORT Signed PATIENT: RHETT HERNANDEZ ACCOUNT: [id number] : 1960 LOCATION: ER AGE: 60 SEX: F EXAM STATUS: PRE ER ORD. PHYSICIAN: PACHECO SAUCEDA MD REASON: trauma PROCEDURE: CT HEAD AND CERVICAL SPINE WO CT HEAD AND C-SPINE WO Date: 03/09/2021 10:20 PM Clinical Indication: Reason: trauma / Spl. Instructions: / History: Comparison: None. Technique: 5 mm axial tomographic images were obtained of the head without contrast. These were viewed on brain and bone windows. CT imaging of the cervical spine was performed without contrast. Coronal and sagittal reformatted images were performed. One or more of the following dose reduction techniques were utilized: Automated exposure control (AEC), Adjustment of mA and/or kV according to patient size, Use of iterative reconstruction technique such as ASiR, CT scan done according to ALARA and image gently/image wisely HEAD FINDINGS: The brain parenchyma is normal in attenuation. No intra- or extra-axial mass or fluid collection. No acute hemorrhage. The ventricles are normal in size, shape, and morphology. The velázquez-white matter junction is normal. The basilar cisterns are patent. The visualized paranasal sinuses are normal. The visualized portions of the orbits and globes are normal. The mastoid air cells are clear. No aggressive osseous lesion or fracture. CERVICAL SPINE FINDINGS: The cervical spine is normally aligned. No acute fracture. No aggressive lytic or blastic osseous lesion. Mild multilevel degenerative disc height loss. No high-grade spinal canal stenosis or neural foraminal narrowing. The thyroid gland is normal. No cervical lymphadenopathy. The visualized aerodigestive tract is unremarkable. The visualized lung apices are clear. IMPRESSION: 1. No acute intracranial process. 2. No acute osseous abnormality of the cervical spine. Electronically signed by: Lucien Bob MD (03/09/2021 11:05 PM) [facility] [place] DICTATED and SIGNED BY: LUCIEN BOB MD DATE: 03/09/21 [id number] [][facility] [address] [place] [address] IMAGING REPORT Signed PATIENT: RHETT HERNANDEZ ACCOUNT: [id number] : 1960 LOCATION: ER AGE: 60 SEX: F EXAM STATUS: PRE ER ORD. PHYSICIAN: PACHECO SAUCEDA MD REASON: trauma PROCEDURE: CT CHEST ABDOMEN PELVIS WO CT CHEST_ABDOMEN_ AND PELVIS WITHOUT CONTRAST INDICATION: Pain, trauma COMPARISON: None. TECHNIQUE: Multiple contiguous axial images were obtained throughout the chest, abdomen, and pelvis without the use of IV contrast. Axial images were reformatted into coronal and sagittal planes. One or more of the following dose reduction techniques were utilized: Automated exposure control (AEC), Adjustment of mA and/or kV according to patient size, Use of iterative reconstruction technique such as ASiR, CT scan done according to ALARA and image gently/image wisely. FINDINGS: Chest Findings: The thyroid is symmetric. There is no axillary, mediastinal, or hilar adenopathy, although evaluation of the clara is limited without IV contrast. Ca lcified mediastinal lymph nodes consistent with remote granulomatous disease. The thoracic aorta diameter is normal. Cardiomegaly. No pericardial effusion. Coronary artery atherosclerotic disease. Aneurysmal ascending thoracic aorta measures 4.6 cm the right pulmonary artery. There is no pericardial effusion. The central airways are patent. Lungs are clear. No pleural abnormality. Abdomen findings: Evaluation of solid abdominal viscera is limited without the use of IV contrast. However, the liver, spleen, pancreas, and adrenal glands are unremarkable. Cholecystectomy. The kidneys are unremarkable. There is no significant mesenteric or retroperitoneal adenopathy identified, though evaluation is limited without intravenous contrast. There is no evidence of free intraperitoneal fluid or pneumoperitoneum. Visualized portions of the bowel are grossly unremarkable. Pelvis findings: Urinary bladder is decompressed. Hysterectomy. There is no significant pelvic ascites. No significant iliac or inguinal adenopathy is identified. No acute osseous abnormality. Degenerative changes of the spine. Median sternotomy. IMPRESSION: No evidence of major traumatic thoracic or abdominal injury. Electronically signed by: Lucien Bob MD (03/09/2021 11:16 PM) [facility] [place] DICTATED and SIGNED BY: LUCIEN BOB MD DATE: 03/09/21 [id number] Course & Med Decision Making: Course & Med Decision Making Pertinent Labs and Imaging studies reviewed. (See chart for details) [] Dragon Disclaimer: Dragon Disclaimer: This electronic medical record was generated, in whole or in part, using a voice recognition dictation system. Departure Departure Impression: Primary Impression: Syncope and collapse Additional Impression: Back pain due to injury Disposition: ADMITTED INPATIENT Admitting Physician: Elizabeth Smith Condition: STABLE Referrals: ELIZABETH SMITH MD (PCP) Scripts Warfarin Sodium (WARFARIN SODIUM) 7.5 Mg Tablet 7.5 MG PO DAILY for mechanical valve for 360 Days, #360 TAB Prov: ELIZABETH SMITH MD 03/12/21 Problem Qualifiers PACHECO SAUCEDA MD Mar 09, 2021 22:20
[2021-03-09 23:01] LABS: BASO % 0 % (0-3); EOS # 0.2 x10^3/uL (0.0-0.7); EOS % 2 % (0-3); HEMATOCRIT 38.2 % (36.0-47.0); LYMPH # 1.4 x10^3/uL (1.0-4.8); LYMPH % 17 % (24-48); MEAN CORPUSCULAR HEMOGLOBIN 28 pg (25-35); MEAN CORPUSCULAR HGB CONC 34 g/dL (31-37); MEAN CORPUSCULAR VOLUME 84 fL (79-100); MONO # 0.7 x10^3/uL (0.0-1.1); MONO % 8 % (0-9); NEUT # 5.8 x10^3/uL (1.8-7.7); NEUT % 72 % (31-73); PLATELET COUNT 155 x10^3/uL (140-400); RED BLOOD COUNT 4.57 x10^6/uL (3.50-5.40); RED CELL DISTRIBUTION WIDTH 14.9 % (11.5-14.5)
--- NOTE | 2021-03-09 23:07 | RAD ---
CT HEAD AND C-SPINE WO Date: 03/09/2021 10:20 PM Clinical Indication: Reason: trauma / Spl. Instructions: / History: Comparison: None. Technique: 5 mm axial tomographic images were obtained of the head without contrast. These were view ed on brain and bone windows. CT imaging of the cervical spine was performed without contrast. Coron al and sagittal reformatted images were performed. One or more of the following dose reduction techni ques were utilized: Automated exposure control (AEC), Adjustment of mA and/or kV according to patient size, Use of iterative reconstruction technique such as ASiR, CT scan done according to ALARA and im age gently/image wisely HEAD FINDINGS: The brain parenchyma is normal in attenuation. No intra- or extra-axial mass or fluid collection. No acute hemorrhage. The ventricles are normal in size, shape, and morphology. The velázquez-white matter kelsie ction is normal. The basilar cisterns are patent. The visualized paranasal sinuses are normal. The visualized portions of the orbits and globes are no rmal. The mastoid air cells are clear. No aggressive osseous lesion or fracture. CERVICAL SPINE FINDINGS: The cervical spine is normally aligned. No acute fracture. No aggressive lytic or blastic osseous les ion. Mild multilevel degenerative disc height loss. No high-grade spinal canal stenosis or neural foramina l narrowing. The thyroid gland is normal. No cervical lymphadenopathy. The visualized aerodigestive tract is unrem arkable. The visualized lung apices are clear. IMPRESSION: 1. No acute intracranial process. 2. No acute osseous abnormality of the cervical spine. Electronically signed by: Mario Bob MD (03/09/2021 11:05 PM) [facility]
[2021-03-09 23:11] LABS: PROTHROMBIN TIME PATIENT 18.7 SEC (11.7-14.0)
[2021-03-09 23:13] LABS: CALCIUM 8.5 mg/dL (8.5-10.1); CREATININE 0.7 mg/dL (0.6-1.0); GFR 85.4; POTASSIUM 4.2 mmol/L (3.5-5.1)
[2021-03-09 23:18] LABS: ALBUMIN 3.3 g/dL (3.4-5.0); ALBUMIN/GLOBULIN RATIO 1.1 (1.0-1.7); MAGNESIUM 1.7 mg/dL (1.8-2.4); TOTAL BILIRUBIN 0.5 mg/dL (0.2-1.0); TOTAL PROTEIN 6.3 g/dL (6.4-8.2)
--- NOTE | 2021-03-09 23:18 | RAD ---
CT CHEST_ABDOMEN_ AND PELVIS WITHOUT CONTRAST INDICATION: Pain, trauma COMPARISON: None. TECHNIQUE: Multiple contiguous axial images were obtained throughout the chest, abdomen, and pelvis without the use of IV contrast. Axial images were reformatted into coronal and sagittal planes. One or more of th e following dose reduction techniques were utilized: Automated exposure control (AEC), Adjustment of mA and/or kV according to patient size, Use of iterative reconstruction technique such as ASiR, CT sc an done according to ALARA and image gently/image wisely. FINDINGS: Chest Findings: The thyroid is symmetric. There is no axillary, mediastinal, or hilar adenopathy, although evaluatio n of the clara is limited without IV contrast. Calcified mediastinal lymph nodes consistent with remot e granulomatous disease. The thoracic aorta diameter is normal. Cardiomegaly. No pericardial effusion. Coronary artery atheros clerotic disease. Aneurysmal ascending thoracic aorta measures 4.6 cm the right pulmonary artery. The re is no pericardial effusion. The central airways are patent. Lungs are clear. No pleural abnormality. Abdomen findings: Evaluation of solid abdominal viscera is limited without the use of IV contrast. However, the liver, spleen, pancreas, and adrenal glands are unremarkable. Cholecystectomy. The kidneys are unremarkable . There is no significant mesenteric or retroperitoneal adenopathy identified, though evaluation is limited without intravenous contrast. There is no evidence of free intraperitoneal fluid or pneumope ritoneum. Visualized portions of the bowel are grossly unremarkable. Pelvis findings: Urinary bladder is decompressed. Hysterectomy. There is no significant pelvic ascites. No significa nt iliac or inguinal adenopathy is identified. No acute osseous abnormality. Degenerative changes of the spine. Median sternotomy. IMPRESSION: No evidence of major traumatic thoracic or abdominal injury. Electronically signed by: Mario Bob MD (03/09/2021 11:16 PM) [facility]
--- NOTE | 2021-03-09 23:19 | EKG ---
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
[2021-03-09] MEDS ORDERED: fentaNYL PF VIAL 100 MCG/2 ML VIAL IVP ONE (23:45)
[2021-03-10] MEDS ORDERED: fentaNYL PF VIAL 100 MCG/2 ML VIAL IV PRN
[2021-03-10] MEDS ORDERED: ONDANSETRON PF 4 MG/2 ML VIAL. IV PRN
[2021-03-10 00:47] LABS: BILIRUBIN,URINE NEGATIVE (NEG); CLARITY,URINE CLEAR; COLOR,URINE YELLOW; NITRITE,URINE NEGATIVE (NEG); PH,URINE 6.5 (<5.0-8.0); PROTEIN,URINE NEGATIVE (NEG-TRACE)
[2021-03-10 00:52] LABS: BACTERIA,URINE FEW /HPF (0-FEW); RBC,URINE 0 /HPF (0-2); WBC,URINE OCC /HPF (0-4)
[2021-03-10 03:34] VITALS: BP 144/63
[2021-03-10 06:43] LABS: BASO % 1 % (0-3); EOS # 0.1 x10^3/uL (0.0-0.7); EOS % 2 % (0-3); HEMATOCRIT 38.4 % (36.0-47.0); HEMOGLOBIN 12.6 g/dL (12.0-15.5); LYMPH # 1.5 x10^3/uL (1.0-4.8); LYMPH % 24 % (24-48); MEAN CORPUSCULAR HEMOGLOBIN 28 pg (25-35); MEAN CORPUSCULAR HGB CONC 33 g/dL (31-37); MEAN CORPUSCULAR VOLUME 85 fL (79-100); MONO # 0.5 x10^3/uL (0.0-1.1); MONO % 8 % (0-9); NEUT # 4.3 x10^3/uL (1.8-7.7); NEUT % 65 % (31-73); PLATELET COUNT 156 x10^3/uL (140-400); RED CELL DISTRIBUTION WIDTH 14.9 % (11.5-14.5); WHITE BLOOD COUNT 6.5 x10^3/uL (4.0-11.0)
[2021-03-10 07:10] LABS: ALBUMIN 3.1 g/dL (3.4-5.0); ALBUMIN/GLOBULIN RATIO 1.3 (1.0-1.7); CALCIUM 8.1 mg/dL (8.5-10.1); CREATININE 0.7 mg/dL (0.6-1.0); GFR 85.4; TOTAL BILIRUBIN 0.4 mg/dL (0.2-1.0); TOTAL PROTEIN 5.5 g/dL (6.4-8.2)
[2021-03-10 07:41] VITALS: BP 128/55
[2021-03-10] MEDS ORDERED: NITROGLYCERIN SUBLINGUAL 0.4 MG BOTTLE OF 25. SL PRN (08:15)
[2021-03-10] MEDS: ALBUTEROL SULFATE 2.5 MG/3 ML NEBU. NEB SCH ×4 (08:30→19:23)
[2021-03-10] MEDS ORDERED: MAGNESIUM SULFATE 2GM 50 ML IV ONE (09:00)
[2021-03-10] MEDS: PANTOPRAZOLE 40 MG TABLET.DR. PO SCH (09:12)
[2021-03-10] MEDS: POTASSIUM CHLORIDE 20 MEQ TABLET.ER. PO SCH ×2 (09:12→17:04)
[2021-03-10] MEDS: FLUoxetine HCL 20 MG CAPSULE PO SCH (09:12)
[2021-03-10] MEDS: DIVALPROEX DELAYED RELEASE 500 MG TABLET.DR. PO SCH ×2 (09:13→21:38)
[2021-03-10] MEDS: FUROSEMIDE 20 MG TABLET PO SCH (09:13)
[2021-03-10] MEDS: LISINOPRIL 20 MG TABLET PO SCH (09:13)
[2021-03-10] MEDS: ISOSORBIDE MONONITRATE ER 30 MG TAB.ER.24H PO SCH (09:13)
[2021-03-10] MEDS: HYDROcodone/APAP 5/325MG 1 TAB TABLET PO PRN ×2 (09:14→17:04)
--- NOTE | 2021-03-10 09:22 | PDOC ---
Provider Note Date of Service: DATE: 03/10/21 TIME: 09:22 Provider Note Pt seen.H&P dictated.#[id number]. Justifications for Admission Other Justification NICOLE SMITH MD Mar 10, 2021 09:22
[2021-03-10] MEDS: LEVOTHYROXINE 25 MCG TABLET. PO SCH (11:00)
[2021-03-10 11:29] VITALS: BP 116/59
[2021-03-10] MEDS: ACETAMINOPHEN 325 MG TABLET. PO PRN ×2 (13:45→21:36)
--- NOTE | 2021-03-10 14:12 | NUR ---
SW following. Discussed with RN, pt from home with , room air, regular diet. PT/OT ordered. Cardiology and Ortho consulted. SW will continue to follow.
--- NOTE | 2021-03-10 14:42 | PDOC2 ---
CARDIAC CONSULT DATE OF CONSULT Date of Consult DATE: 03/10/21 TIME: 14:34 REASON FOR CONSULT Reason for Consult: syncope REFERRING PHYSICIAN Referring Physician: Dr. Hudson SOURCE Source: Chart review, Patient HISTORY OF PRESENT ILLNESS HISTORY OF PRESENT ILLNESS This is a 60 yo female who presented secondary to syncopal episode. Patient reports she was stood up and began feeling lightheaded, dizzy. Subsequently fell and had loss on consciousness. Presently with neck and back. CT head/cervical spine without acute finding. Does have a right ankle fracture secondary to recent fall. She denies any chest pain, palpitations, shortness of breath, or nausea/vomiting. PAST MEDICAL HISTORY Past Medical History Cardiovascular: AFIB, CAD, CHF, HTN, [place], Hyperlipidemia, Other Pulmonary: Asthma, COPD CENTRAL NERVOUS SYSTEM: CVA, Seizure, Other GI: GERD, Peptic Ulcer disease, Other Heme/Onc: Cancer Hepatobiliary: No pertinent hx Psych: Anxiety, Bipolar, Depression Musculoskeletal: Osteoarthritis Rheumatologic: No pertinent hx Infectious disease: No pertinent hx Renal/: No pertinent hx Endocrine: No pertinent hx PAST SURGICAL HISTORY Past Surgical History Pacemaker, CABG, Hernia Repair, Mastectomy, Hysterectomy, mechanical AVR FAMILY HISTORY Family History: Diabetes SOCIAL HISTORY Social History Smoke: No ALCOHOL: none Drugs: None Lives: with Family CURRENT MEDICATIONS CURRENT MEDICATIONS Current Medications Medications (Trade) Dose Ordered Sig/Galilea Route PRN Reason Start Time Stop Time Status Last Admin Dose Admin Fentanyl Citrate (Fentanyl 2ml Vial) 75 mcg 1X ONCE IVP 03/09/21 23:45 03/09/21 23:46 DC 03/10/21 00:18 Fentanyl Citrate (Fentanyl 2ml Vial) 50 mcg PRN Q1HR PRN IV PAIN 03/10/21 00:00 03/10/21 23:59 03/10/21 03:58 Acetaminophen (Tylenol) 650 mg PRN Q4HRS PRN PO FEVER > 100.3'F 03/10/21 00:00 03/10/21 23:59 03/10/21 13:45 Albuterol Sulfate (Ventolin Neb Soln) 2.5 mg Q4HRS NEB 03/10/21 08:30 03/10/21 11:41 Divalproex Sodium (Depakote) 500 mg BID PO 03/10/21 09:00 03/10/21 09:13 Furosemide (Lasix) 20 mg DAILY PO 03/10/21 09:00 03/10/21 09:13 Acetaminophen/ Hydrocodone Bitart (Lortab 5/325) 1 tab PRN Q6HRS PRN PO MODERATE PAIN 03/10/21 08:15 03/10/21 09:14 Isosorbide Mononitrate (Imdur) 30 mg DAILY PO 03/10/21 09:00 03/10/21 09:13 Levothyroxine Sodium (Synthroid) 25 mcg DAILY06 PO 03/10/21 10:30 03/10/21 11:00 Lisinopril (Prinivil) 20 mg DAILY PO 03/10/21 09:00 03/10/21 09:13 Potassium Chloride (Klor-Con) 20 meq BIDWMEALS PO 03/10/21 09:00 03/10/21 09:12 Fluoxetine HCl (PROzac) 40 mg DAILY PO 03/10/21 09:00 03/10/21 09:12 Pantoprazole Sodium (Protonix) 40 mg DAILYAC PO 03/10/21 08:30 03/10/21 09:12 Magnesium Sulfate 50 ml @ 25 mls/hr 1X ONCE IV 03/10/21 09:00 03/10/21 10:59 DC 03/10/21 11:00 ALLERGIES ALLERGIES: Coded Allergies: Sulfa (Sulfonamide Antibiotics) (Verified Allergy, Severe, rash, tongue swelling, 04/15/15) Iodinated Contrast Media (Verified Allergy, Intermediate, rash, 04/15/15) Penicillins (Verified Allergy, Intermediate, Hives, 04/15/15) aspirin (Verified Allergy, Intermediate, Hives, 04/15/15) codeine (Verified Allergy, Intermediate, Hives; SEE COMMENT, 06/08/15) PT REPORTS TAKING LORTAB WITHOUT COMPLICATIONS, PER ED diphenhydramine HCl (Verified Allergy, Intermediate, rash, 12/19/13) latex (Verified Allergy, Intermediate, Rash, 12/18/13) ROS Review of System 14 point ROS conducted with pertinent positives noted above in HPI PHYSICAL EXAM PHYSICAL EXAM General: Alert, Oriented X3, Cooperative, No acute distress HEENT: Atraumatic, Mucous membr. moist/pink Lungs: Clear to auscultation, Normal air movement Heart: Regular rate (SR), Normal S1, Normal S2, Other (audible click loudest to GREGORIO border) Abdomen: Soft, No tenderness Extremities: No cyanosis, No edema Skin: No breakdown, No significant lesion Neuro: Normal speech, Sensation intact Psych/Mental Status: Mental status NL, flat affect MUSCULOSKELETAL: Osteoarthritic changes both hands VITALS/I&O VITALS/I&O: Vital Signs Date Time Temp Pulse Resp B/P (MAP) Pulse Ox O2 Delivery O2 Flow Rate FiO2 03/10/21 11:42 Room Air 03/10/21 11:29 98.7 62 18 116/59 (78) 95 98.7 I & O 03/09/21 03/09/21 03/10/21 15:00 23:00 07:00 Intake Total 50 ml Output Total 0 ml Balance 50 ml LABS Lab: Laboratory Tests Test 03/09/21 22:50 03/10/21 00:40 03/10/21 03:13 03/10/21 06:30 White Blood Count 8.0 x10^3/uL (4.0-11.0) 6.5 x10^3/uL (4.0-11.0) Red Blood Count 4.57 x10^6/uL (3.50-5.40) 4.50 x10^6/uL (3.50-5.40) Hemoglobin 13.0 g/dL (12.0-15.5) 12.6 g/dL (12.0-15.5) Hematocrit 38.2 % (36.0-47.0) 38.4 % (36.0-47.0) Mean Corpuscular Volume 84 fL (79-100) 85 fL (79-100) Mean Corpuscular Hemoglobin 28 pg (25-35) 28 pg (25-35) Mean Corpuscular Hemoglobin Concent 34 g/dL (31-37) 33 g/dL (31-37) Red Cell Distribution Width 14.9 % (11.5-14.5) H 14.9 % (11.5-14.5) H Platelet Count 155 x10^3/uL (140-400) 156 x10^3/uL (140-400) Neutrophils (%) (Auto) 72 % (31-73) 65 % (31-73) Lymphocytes (%) (Auto) 17 % (24-48) L 24 % (24-48) Monocytes (%) (Auto) 8 % (0-9) 8 % (0-9) Eosinophils (%) (Auto) 2 % (0-3) 2 % (0-3) Basophils (%) (Auto) 0 % (0-3) 1 % (0-3) Neutrophils # (Auto) 5.8 x10^3/uL (1.8-7.7) 4.3 x10^3/uL (1.8-7.7) Lymphocytes # (Auto) 1.4 x10^3/uL (1.0-4.8) 1.5 x10^3/uL (1.0-4.8) Monocytes # (Auto) 0.7 x10^3/uL (0.0-1.1) 0.5 x10^3/uL (0.0-1.1) Eosinophils # (Auto) 0.2 x10^3/uL (0.0-0.7) 0.1 x10^3/uL (0.0-0.7) Basophils # (Auto) 0.0 x10^3/uL (0.0-0.2) 0.0 x10^3/uL (0.0-0.2) Prothrombin Time 18.7 SEC (11.7-14.0) H Prothrombin Time INR 1.6 (0.8-1.1) H Sodium Level 141 mmol/L (136-145) 144 mmol/L (136-145) Potassium Level 4.2 mmol/L (3.5-5.1) 4.0 mmol/L (3.5-5.1) Chloride Level 106 mmol/L (98-107) 109 mmol/L (98-107) H Carbon Dioxide Level 28 mmol/L (21-32) 28 mmol/L (21-32) Anion Gap 7 (6-14) 7 (6-14) Blood Urea Nitrogen 14 mg/dL (7-20) 13 mg/dL (7-20) Creatinine 0.7 mg/dL (0.6-1.0) 0.7 mg/dL (0.6-1.0) Estimated GFR (Cockcroft-Gault) 85.4 85.4 BUN/Creatinine Ratio 20 (6-20) 19 (6-20) Glucose Level 113 mg/dL (70-99) H 97 mg/dL (70-99) Calcium Level 8.5 mg/dL (8.5-10.1) 8.1 mg/dL (8.5-10.1) L Magnesium Level 1.7 mg/dL (1.8-2.4) L Total Bilirubin 0.5 mg/dL (0.2-1.0) 0.4 mg/dL (0.2-1.0) Aspartate Amino Transferase (AST) 17 U/L (15-37) 11 U/L (15-37) L Alanine Aminotransferase (ALT) 17 U/L (14-59) 16 U/L (14-59) Alkaline Phosphatase 82 U/L (46-116) 82 U/L (46-116) Troponin I Quantitative < 0.017 ng/mL (0.000-0.055) < 0.017 ng/mL (0.000-0.055) < 0.017 ng/mL (0.000-0.055) EB-Vgx-F-Type Natriuretic Peptide 380 pg/mL (0-124) H Total Protein 6.3 g/dL (6.4-8.2) L 5.5 g/dL (6.4-8.2) L Albumin 3.3 g/dL (3.4-5.0) L 3.1 g/dL (3.4-5.0) L Albumin/Globulin Ratio 1.1 (1.0-1.7) 1.3 (1.0-1.7) Thyroid Stimulating Hormone (TSH) 2.632 uIU/mL (0.358-3.74) Urine Collection Type Unknown Urine Color Yellow Urine Clarity Clear Urine pH 6.5 (<5.0-8.0) Urine Specific Mcfarland <=1.005 (1.000-1.030) Urine Protein Negative mg/dL (NEG-TRACE) Urine Glucose (UA) Negative mg/dL (NEG) Urine Ketones (Stick) Negative mg/dL (NEG) Urine Blood Negative (NEG) Urine Nitrite Negative (NEG) Urine Bilirubin Negative (NEG) Urine Urobilinogen Dipstick 1.0 mg/dL (0.2 mg/dL) Urine Leukocyte Esterase Negative (NEG) Urine RBC 0 /HPF (0-2) Urine WBC Occ /HPF (0-4) Urine Squamous Epithelial Cells Mod /LPF Urine Bacteria Few /HPF (0-FEW) Urine Mucus Slight /LPF Laboratory Tests 03/09/21 22:50 03/10/21 06:30 Laboratory Tests 03/09/21 22:50 03/10/21 06:30 ECHOCARDIOGRAM ECHOCARDIOGRAM <Conclusion> The left ventricular systolic function is normal and the ejection fraction is within normal range. The Ejection Fraction is 55%. Septal motion consistent with conduction abnormality. Wall motion not well visualized. There is a catheter in the right ventricle. There is a probable mechanical aortic valve prosthesis. Calculated aortic valve area is 1.08 cm2 with maximum pressure gradient of 72 mmHg and mean pressure gradient of 40 mmHg. Technically very difficult study DATE: 11/08/19 1626 <Conclusion> The left ventricular systolic function is normal and the ejection fraction is within normal range. The Ejection Fraction is 55%. There is grossly normal LV segmental wall motion. There is a mechanical aortic valve prosthesis. The prosthetic aortic valve appears grossly normal. Calculated aortic valve area is 1.25 cm2 with maximum pressure gradient of 61 mmHg and mean pressure gradient of 34 mmHg. (Stable compared to 1 year ago) The ascending aorta is mildly dilated measuring 4 cm. DATE: 12/13/20 [id number] 0 STRESS TEST STRESS TEST Conclusion 1. No evidence of EKG changes with stress testing. 2. Normal perfusion at stress/rest. 3. Low risk study. 4. EF > 60%. DATE: 11/09/19 0911 HEART CATH HEART CATH <Conclusion> Aortic root pressure of 136/74. Coronaries. Left main: the left main had no lesions. Left anterior descending vessel. The LAD had a mid 20% lesion. Left circumflex. The left circumflex had no lesions. Right coronary artery. The right coronary had multiple stents that were all widely patent. DATE: 11/17/13 1000 ASSESSMENT/PLAN ASSESSMENT/PLAN 1. Syncope, fall; most probably vasovagal 2. CAD s/p PCI/stents to RCA. Stents patent per cath 2013. Stress test 09/01 without evidence of ischemia and recent echo with preserved LV systolic function. 3. SSS s/p PPM ([employer]) 4. AVR: mechanical valve. stable per recent echo. on warfarin. INR 1.6 5. HTN: controlled overall 6. HLP: statin 7. Schizophrenia/bipolar disorder/seizure disorder 8. Hypomagnesemia Recommendations Device interrogation Check orthostatics Warfarin for stroke prevention Lovenox while INR subtherapeutic Supportive care SOTERO DUMONT APRN Mar 10, 2021 14:42
[2021-03-10] MEDS: METOPROLOL TART IMMED RELEASE 25 MG TABLET. PO SCH ×2 (15:40→21:00)
[2021-03-10 15:42] VITALS: BP_SYST 111; BP_SYST 128; BP_SYST 132; BP_DIAS 56; BP_DIAS 57; BP_DIAS 58
[2021-03-10] MEDS: WARFARIN 5 MG TABLET. PO SCH (17:04)
[2021-03-10 19:00] VITALS: BP 103/48
--- NOTE | 2021-03-10 20:02 | HP ---
ADMIT DATE: 03/09/2021 MEDICAL HISTORY AND PHYSICAL REASON FOR ADMISSION TO THE HOSPITAL: Syncopal episode. HISTORY OF PRESENT ILLNESS: She is a 60-year-old female, patient uses Coumadin for prosthetic heart valve and she is on Coumadin and she felt dizzy, lightheaded. She was trying to go around her bed and she fell and loss of consciousness, and the patient was sent to the hospital paramedics. CT head, there were no fractures. The patient was admitted to the hospital, was admitted for further investigation. PAST MEDICAL HISTORY: She has a mechanical aortic valve, the patient is on Coumadin. History of heart bypass surgery, hernia repair, hysterectomy, lump removed from the breast, hernia repair, pacemaker, cardiac stents. PAST SURGICAL HISTORY: As mentioned above. PAST MEDICAL HISTORY: AFib, sick sinus syndrome, hyperlipidemia, anxiety, depression, schizophrenia, seizures and bipolar, reflux disease, gastroparesis. FAMILY HISTORY: Positive for diabetes, heart disease. SOCIAL HISTORY: Denies smoking, alcohol or drug abuse. The patient lives at home. The patient recently had a fall and broken ankle. She is using half cast. She was in the Emergency Room a couple of days ago. ALLERGIES: THE PATIENT IS ALLERGIC TO CONTRAST, PENICILLIN, SULFA, ASPIRIN, CODEINE, BENADRYL, AND LATEX. MEDICATIONS AT HOME: The patient is on albuterol, atorvastatin, Depakote 500 mg twice a day, fluoxetine 40 mg daily, Lasix 20 mg daily, hydrocodone 5/325 p.r.n., isosorbide 30 mg daily, levothyroxine 25 mcg daily, lisinopril 20 mg daily, metoprolol 25 mg twice a day, Singulair 10 mg daily, nitro daily, Zyprexa 50 mg daily, omeprazole 40 mg daily, potassium 20 mEq daily, trazodone 50 daily, Coumadin 5 mg daily. REVIEW OF SYSTEMS: Denies any chest pain and shortness of breath. Denies any fever. Rest of the 14 systems reviewed and negative. PHYSICAL EXAMINATION: VITAL SIGNS: At the time of admission shows temperature 98, pulse 62, respirations 18, blood pressure 116/69, 95 on room air. HEENT: Head is atraumatic. Pupil, the patient has a slightly dilated irregular pupil on the left side from previous stroke as per the patient. NECK: Supple. Thyroid not enlarged. JVD not elevated. CHEST: Symmetrical. Has a pacemaker on the left side. Scar of heart surgery. CARDIOVASCULAR: S1, S2 click present. LUNGS: Clear to auscultation. No wheezing. ABDOMEN: Soft, bowel sounds present. No mass palpable. EXTERNAL GENITALIA: No Siu. RECTAL: Deferred. EXTREMITIES: No calf tenderness. No edema. The patient has a half cast in the right leg. NEUROLOGIC: Moving all extremities. No focal deficits noted. LABORATORY DATA: Shows a white count of 8, hemoglobin 13, platelets 155. INR 1.6. Electrolytes show sodium 141, potassium 4.2, chloride 106, bicarb 28, BUN 14, creatinine 0.7, glucose 113, magnesium 1.7. Urine negative for infection. CT of the head, no acute fractures. CT of the cervical spine, no fractures, no bleeding in the brain. CT of the chest, abdomen and pelvis shows no evidence of major trauma in the thoracic or abdomen. FINAL IMPRESSION: 1. Syncope. 2. History of fall. The patient is on Coumadin. No evidence of any bleeding at this point. 3. Mechanical aortic valve, on Coumadin. 4. Pacemaker with sick sinus syndrome. 5. Coronary artery disease, previous stents. 6. Schizophrenia, multiple medications. 7. Possible to have orthostatic hypotension causing the fall. 8. Right ankle fracture. PLAN: At this time, admit to the hospital. Cardiology is consulted. PT, OT, Orthopedic consult. Check orthostatics and see how she improves. ISAMAR/ORLIN/SOT DR: ISAMAR/cori TID: [id number]
[2021-03-10] MEDS: OLANZapine 5 MG TABLET PO SCH (21:37)
[2021-03-10] MEDS: MONTELUKAST SODIUM 10 MG TABLET. PO SCH (21:37)
[2021-03-10] MEDS: ATORVASTATIN CALCIUM 10 MG TABLET. PO SCH (21:37)
[2021-03-10] MEDS: traZODone 50 MG TABLET. PO SCH (21:38)
[2021-03-10 23:00] VITALS: BP 110/59
--- NOTE | 2021-03-11 03:14 | CONS ---
DATE OF CONSULTATION: 03/10/2021 ORTHOPEDIC CONSULTATION REQUESTING PHYSICIAN: Elizabeth Hudson MD. REASON FOR CONSULTATION: Right ankle fracture. HISTORY OF PRESENT ILLNESS: The patient states that she had a fall last Wednesday and a right ankle fracture that where she was splinted. The reason for her admission, today is that she was brought in by EMS from a standing height fall and she does note a loss of consciousness. She felt lightheaded, dizzy and fell backward. Complains of head, neck and back pain and states that the splint on the right ankle is tight. PAST MEDICAL HISTORY: Significant for atrial fibrillation, anxiety, bipolar, previous stroke, hypertension, [place], schizophrenia, renal disease, kidney problems, hallucinations and aortic valve insufficiency. PAST SURGICAL HISTORY: Aortic valve replacement, coronary bypass surgery, pacemaker placement along with defibrillator and cholecystectomy. SOCIAL HISTORY: Denies smoking, alcohol or drug use. MEDICATIONS: List is reviewed. ALLERGIES: SHE LISTS ALLERGIES TO SULFA, IODINATED CONTRAST, PENICILLIN, ASPIRIN, CODEINE, BENADRYL, AND LATEX. REVIEW OF SYSTEMS: She mainly complains of her neck and back being sore, but mainly that the right ankle is tender. Denies any current chest pain, shortness of breath, focal weakness, numbness, tingling, or other constitutional symptoms, otherwise negative review of systems. PHYSICAL EXAMINATION: She can wiggle her toes. Her distal capillary refill and sensation are intact. The ankle splint is overall intact, but it does show evidence of her having walked on it as it is colored green like grass stains perhaps otherwise is intact and no signs of skin rubbing. She has normal examination of the contralateral ankle, bilateral hips and knees. LABORATORY DATA: X-rays of the right ankle show a nondisplaced fracture of the distal fibula with ankle joint mortise intact and these films are from 03/07/2021. IMPRESSION: Right distal fibula fracture nondisplaced, history of more recent fall. It is noted that CT shows no osseous abnormalities of cervical spine or acute intracranial process. TREATMENT PLAN: I went over with her that I anticipate ongoing nonoperative treatment of her ankle fracture and given her discomfort in the splint and the fact that she is walking on it. I would like to transfer her over to a Cam walker boot and we will keep the splint on in the interim until the boot is able to be fit. When she does receive her boot, she can be weightbearing as tolerated and in the interim, get up and around as tolerated with physical therapy. THERESA/SEAN/ALEXI DR: THERESA/cori TID: [id number]
[2021-03-11 03:25] VITALS: BP 132/71
[2021-03-11] MEDS: ALBUTEROL SULFATE 2.5 MG/3 ML NEBU. NEB SCH ×6 (04:00→19:49)
[2021-03-11] MEDS: LEVOTHYROXINE 25 MCG TABLET. PO SCH (05:05)
[2021-03-11] MEDS: HYDROcodone/APAP 5/325MG 1 TAB TABLET PO PRN ×4 (05:05→23:51)
[2021-03-11 07:41] VITALS: BP 178/78
--- NOTE | 2021-03-11 09:16 | PDOC ---
PROGRESS NOTES Date of Service: DATE: 03/11/21 TIME: 09:13 Subjective Subjective more awake ,has some body pains from fall Objective Objective Vital Signs Date Time Temp Pulse Resp B/P (MAP) Pulse Ox O2 Delivery O2 Flow Rate FiO2 03/11/21 07:41 97.6 60 18 178/78 (111) 93 Room Air 97.6 Intake and Output 03/11/21 07:00 Intake Total 240 ml Balance 240 ml Intake Oral 240 ml Physical Exam Abdomen: Soft Heart: Regular rate, Normal S1, Normal S2 Extremities: No clubbing General: Alert HEENT: Atraumatic Lungs: Clear to auscultation MUSCULOSKELETAL: No swelling Neck: Supple Neuro: Normal speech Psych/Mental Status: Mental status NL Skin: No breakdown COMMENT half cast rt leg Diagnosis Problem List Problems Medical Problems: (1) Back pain due to injury Status: Acute (2) Syncope and collapse Status: Acute Assessment Assessment Problems Medical Problems: (1) Back pain due to injury Status: Acute (2) Syncope and collapse Status: Acute FINAL IMPRESSION: 1. Syncope / vasovagal. 2. History of fall. The patient is on Coumadin. No evidence of any bleeding at this point.in r 1.6 low 3. Mechanical aortic valve, on Coumadin. 4. Pacemaker with sick sinus syndrome. 5. Coronary artery disease, previous stents. 6. Schizophrenia, multiple medications. 7. Possible to have orthostatic hypotension causing the fall. 8. Right ankle fracture. PLAN: pacemaker check done labs ok ,inr pending CAM walker boot. home soon today ? tomorrow. At this time, admit to the hospital. Cardiology is consulted. PT, OT, Orthopedic consult. Check orthostatics and see how she improves. Plan Plan of Care Problems Medical Problems: (1) Back pain due to injury Status: Acute (2) Syncope and collapse Status: Acute Comment Review of Relevant I have reviewed the following items yonathan (where applicable) has been applied. Medications Current Medications Atorvastatin Calcium (Lipitor) 10 mg QHS PO Last administered on 03/10/21at 21:37; Start 03/10/21 at 21:00 Enoxaparin Sodium (Lovenox 100mg Syringe) 90 mg Q12HR SQ Last administered on 03/10/21at 21:36; Start 03/10/21 at 21:00 Enoxaparin Sodium (Lovenox Per Pharmacy Treatment Dosing) 1 each PRN DAILY PRN MC SEE COMMENTS; Start 03/10/21 at 16:15; Status Cancel Enoxaparin Sodium (Lovenox Per Pharmacy Treatment Dosing) 1 each PRN DAILY PRN MC SEE COMMENTS; Start 03/10/21 at 17:30 Levothyroxine Sodium (Synthroid) 25 mcg DAILY06 PO Last administered on 03/11/21at 05:05; Start 03/10/21 at 10:30 Montelukast Sodium (Singulair) 10 mg QHS PO Last administered on 03/10/21at 21:37; Start 03/10/21 at 21:00 Olanzapine (ZyPREXA) 15 mg QHS PO Last administered on 03/10/21at 21:37; Start 03/10/21 at 21:00 Trazodone HCl (Desyrel) 50 mg HS PO Last administered on 03/10/21at 21:38; Start 03/10/21 at 21:00 Warfarin Sodium (Coumadin Per Physician) 1 each PRN DAILY PRN MC SEE COMMENTS; Start 03/10/21 at 09:30; Status UNV Warfarin Sodium (Coumadin) 5 mg DAILY16 PO Last administered on 03/10/21at 17:04; Start 03/10/21 at 16:00 Vitals/I & O Vital Sign - Last 24 Hours 03/10/21 03/10/21 03/10/21 03/10/21 09:14 11:00 11:29 11:42 Temp 98.7 98.7 Pulse 62 Resp 18 B/P (MAP) 116/59 (78) Pulse Ox 95 O2 Delivery Room Air Room Air Room Air Room Air 03/10/21 03/10/21 03/10/21 03/10/21 15:40 15:42 15:42 15:42 Temp 97.8 97.8 Pulse 62 61 61 61 Resp 18 B/P (MAP) 116/59 128/56 (80) 132/58 (82) 111/57 (75) Pulse Ox 95 O2 Delivery Room Air 03/10/21 03/10/21 03/10/21 03/10/21 15:55 17:04 17:45 19:00 Temp 97.6 97.6 Pulse 65 Resp 20 B/P (MAP) 103/48 (66) Pulse Ox 100 91 O2 Delivery Room Air Room Air Room Air Room Air 03/10/21 03/10/21 03/10/21 03/11/21 20:00 21:00 23:00 03:25 Temp 97.8 98.1 97.8 98.1 Pulse 60 65 60 Resp 18 18 B/P (MAP) 132/71 110/59 (76) 132/71 (91) Pulse Ox 96 95 O2 Delivery Room Air Room Air Room Air 03/11/21 03/11/21 03/11/21 05:05 07:08 07:41 Temp 97.6 97.6 Pulse 60 Resp 18 18 B/P (MAP) 178/78 (111) Pulse Ox 95 93 O2 Delivery Room Air Room Air Room Air Intake and Output 03/10/21 03/10/21 03/11/21 15:00 23:00 07:00 Intake Total 120 ml 120 ml 0 ml Balance 120 ml 120 ml 0 ml Justifications for Admission Other Justification NICOLE SMITH MD Mar 11, 2021 09:16
--- NOTE | 2021-03-11 09:19 | SNU/HH DC ---
DISCHARGE WITH HOME HEALTH DISCHARGE INFORMATION: Discharge Date: Mar 11, 2021 Final Diagnosis: Problems Medical Problems: (1) Back pain due to injury Status: Acute (2) Syncope and collapse Status: Acute Condition on Discharge: Stable CODE STATUS: Code Status: Full HOME HEALTH: Face to Face: I certify this patient is under my care and that I, or a nurse practitioner or physician's child development assistant working with me, had a face to face encounter that meets the physician face to face encounter requirements with this patient on []. Medical Complications: Other (syncope) RN For Eval/Treatment: Yes Physical Therapy For: Evalulation/Treatment Home Health Aide For: Self-care JAVASCRIPT UI DEVELOPER For: Community Resources Pt Meets Homebound Status: Poor coordination w/ amb. POST DISCHARGE ORDERS: Activity Instructions for Disc: No restrictions, Activity as tolerated Weight Bearing Status after Di: Full weight bearing, As tolerated DIET AFTER DISCHARGE: Cardiac Wound/Incision Care: No wound care needed DC TO SNF OTHER: Suicide precautions. She has one-to-one sitter CHECKS AFTER DISCHARGE: Checks after discharge: Check blood press - daily FOLLOW-UP: DC TO SNF LABS: PT /inr wed and days weekly ,keep inr 2-3. TREATMENT/EQUIPMENT ORDERS: Adaptive Equipment Issued: None, Brace/splint CERTIFICATION STATEMENT: Certification Statement: Certification Statement: Based on the above finding, I certify that this patient is confined to the home and needs intermittent nursing home care, physical therapy and/or speech therapy, or continues to need occupational therapy.~ This patient is under my care, and I have initiated the establishment of the plan of care.~ This patient will be followed by myself or a community physician who will periodically review the plan of care. Home Meds Active Scripts Hydrocodone Bit/Acetaminophen (HYDROCODONE-APAP 5-325 ) 1 Tab Tablet, 1 TAB PO PRN Q6HRS PRN for PAIN for 5 Days, #20 TAB 0 Refills Prov:SARATH ARAYA APRN 03/07/21 Metoprolol Tartrate (METOPROLOL TARTRATE) 25 Mg Tablet, 1 TAB PO BID for htn, #60 TAB 5 Refills Prov:NICOLE SMITH MD 02/16/21 Nitroglycerin (NITROSTAT) 0.4 Mg Tab.subl, 0.4 MG SL PRN Q5MIN PRN for CHEST PAIN, #25 TAB Prov:HARRY DE LA VEGA MD 12/14/20 Hydrocodone Bit/Acetaminophen (HYDROCODONE-APAP 5-325 ) 1 Tab Tablet, 1 TAB PO PRN Q6HRS PRN for PAIN for 7 Days, #20 TAB Prov:HARRY DE LA VEGA MD 12/14/20 Atorvastatin Calcium (ATORVASTATIN CALCIUM) 10 Mg Tablet, 10 MG PO QHS, #30 TAB Prov:JATIN WATSONDEANDRE DOOR SLINGER 10/23/14 Reported Medications Montelukast Sodium (Montelukast Sodium) 10 Mg Tablet, 1 TAB PO QHS for congestion 12/13/20 Levothyroxine Sodium (LEVOTHYROXINE SODIUM) 25 Mcg Tablet, 1 TAB PO DAILY for hypothyroid 12/13/20 Tramadol Hcl (TRAMADOL HCL) 50 Mg Tablet, 1 TAB PO PRN Q12HR PRN for PAIN 12/13/20 Albuterol Sulfate (Proair Hfa) 8.5 Gm Hfa.aer.ad, 1 PUFF IH Q4HRS for wheezing 12/13/20 Omeprazole (OMEPRAZOLE) 40 Mg Capsule.dr, 1 CAP PO DAILY for GERD 12/13/20 Furosemide (FUROSEMIDE) 20 Mg Tablet, 1 TAB PO DAILY for chf 12/13/20 Potassium Chloride (KLOR-CON M20) 20 Meq Tab.er.prt, 1 TAB PO BID for supplement 12/13/20 Quetiapine Fumarate (QUETIAPINE FUMARATE) 200 Mg Tablet, 2.5 TAB PO QHS for depression 12/12/20 Divalproex Sodium (DIVALPROEX SODIUM) 500 Mg Tablet.dr, 500 MG PO BID, TAB 07/21/19 Fluoxetine Hcl (FLUOXETINE HCL) 40 Mg Capsule, 40 MG PO DAILY for depression, CAP 07/20/19 Trazodone Hcl (TRAZODONE HCL) 50 Mg Tablet, 50 MG PO HS for insomnia, TAB 07/20/19 Isosorbide Mononitrate (ISOSORBIDE MONONITRATE ER) 30 Mg Tab.er.24h, 1 TAB PO DAILY, #30 TAB 5 Refills 05/04/18 Warfarin Sodium (WARFARIN SODIUM) 5 Mg Tablet, 1 TAB PO DAILY, #90 TAB 1 Refill 05/04/18 Olanzapine (ZYPREXA) 15 Mg Tablet, 1 TAB PO QHS, #30 TAB 02/20/17 Lisinopril (LISINOPRIL) 20 Mg Tablet, 1 TAB PO DAILY, #30 TAB 5 Refills 02/20/17 NICOLE SMITH MD Mar 11, 2021 09:19
[2021-03-11] MEDS: METOPROLOL TART IMMED RELEASE 25 MG TABLET. PO SCH ×2 (09:43→22:04)
[2021-03-11] MEDS: POTASSIUM CHLORIDE 20 MEQ TABLET.ER. PO SCH ×2 (09:44→16:47)
[2021-03-11] MEDS: ISOSORBIDE MONONITRATE ER 30 MG TAB.ER.24H PO SCH (09:44)
[2021-03-11] MEDS: FUROSEMIDE 20 MG TABLET PO SCH (09:44)
[2021-03-11] MEDS: DIVALPROEX DELAYED RELEASE 500 MG TABLET.DR. PO SCH ×2 (09:44→22:05)
[2021-03-11] MEDS: FLUoxetine HCL 20 MG CAPSULE PO SCH (09:45)
[2021-03-11] MEDS: LISINOPRIL 20 MG TABLET PO SCH (09:45)
[2021-03-11] MEDS: PANTOPRAZOLE 40 MG TABLET.DR. PO SCH (09:45)
[2021-03-11 10:44] LABS: PROTHROMBIN TIME PATIENT 21.8 SEC (11.7-14.0)
[2021-03-11 11:00] VITALS: BP 143/69
--- NOTE | 2021-03-11 11:19 | NUR ---
Pt refuses breathing tx at this time stating her stomach is bothering her,she only takes them when needed, and does'nt need one now CHolmes [employer]ER
--- NOTE | 2021-03-11 11:46 | PDOC ---
CARDIO Progress Notes Date and Time Date of Service 03/11/21 Time of Evaluation 1145 Subjective Subjective: No Chest Pain, No shortness of breath, No Palpitations, No Dizziness Vitals Vitals Vital Signs Date Time Temp Pulse Resp B/P (MAP) Pulse Ox O2 Delivery O2 Flow Rate FiO2 03/11/21 09:45 60 178/78 03/11/21 08:17 Room Air 03/11/21 07:41 97.6 18 93 97.6 Weight Weight [ ] Input and Output Intake and Output Intake and Output 03/11/21 07:00 Intake Total 240 ml Balance 240 ml Intake Oral 240 ml Laboratory Labs Laboratory Tests Test 03/11/21 10:15 Prothrombin Time 21.8 SEC (11.7-14.0) Prothromb Time International Ratio 1.9 (0.8-1.1) Physical Exam HEENT: Neck Supple W Full Motion Chest: Symmetric LUNGS: Clear to Auscultation Heart: murmurs Abdomen: Soft N/T Extremities: No Edema Neurology: alert, oriented, follow commands Assessment Assessment 1. Syncope, fall; most probably vasovagal. Ortho's negative. 2. CAD s/p PCI/stents to RCA. Stents patent per cath 2013. Stress test 09/01 without evidence of ischemia and recent echo with preserved LV systolic function. 3. SSS s/p PPM ([employer]). Device interrogation with normal function. No significant arrhythmias noted 4. AVR: mechanical valve. stable per recent echo. on warfarin. INR 1.9 5. HTN: controlled overall 6. HLP: statin 7. Schizophrenia/bipolar disorder/seizure disorder 8. Hypomagnesemia Recommendations Continue secondary prevention measures Warfarin for stroke prevention Supportive care from a CV standpoint Follow up in our office with Dr. Rasmussen as scheduled. Justicifation of Admission Dx: Justifications for Admission: Justification of Admission Dx: Yes TIM,EMILY IRASEMA Mar 11, 2021 11:46
--- NOTE | 2021-03-11 13:54 | NUR ---
SW following. Discussed with RN, Dr. Hudson wanting home health for patient. [facility] RN meeting with pt, as pt has used [facility] before. SW will continue to follow. Addendum: 03/11/21 at 1600 by NENA CHAMBERS SW [facility] RN met with pt, pt stating she doesn't think her can take care of her like this at home. Pt wanting to go to [facility]. Therapy recommending SNF. SW phoned and faxed referral to [facility]. Requested RN do a COVID test. PADMINI will continue to follow.
[2021-03-11 15:30] VITALS: BP 151/76
[2021-03-11] MEDS: WARFARIN 5 MG TABLET. PO SCH (16:47)
[2021-03-11 19:00] VITALS: BP 106/60
[2021-03-11] MEDS: ATORVASTATIN CALCIUM 10 MG TABLET. PO SCH (22:04)
[2021-03-11] MEDS: MONTELUKAST SODIUM 10 MG TABLET. PO SCH (22:04)
[2021-03-11] MEDS: traZODone 50 MG TABLET. PO SCH (22:05)
[2021-03-11] MEDS: OLANZapine 5 MG TABLET PO SCH (22:05)
[2021-03-11 23:00] VITALS: BP 134/73
[2021-03-12] MEDS: ALBUTEROL SULFATE 2.5 MG/3 ML NEBU. NEB SCH ×4 (00:23→12:00)
[2021-03-12 03:00] VITALS: BP 137/65
[2021-03-12 06:31] LABS: PROTHROMBIN TIME PATIENT 21.9 SEC (11.7-14.0)
[2021-03-12 07:30] VITALS: BP 124/76
--- NOTE | 2021-03-12 09:29 | PDOC ---
PROGRESS NOTES Date of Service: DATE: 03/12/21 TIME: 09:27 Subjective Subjective feels better today Objective Objective Vital Signs Date Time Temp Pulse Resp B/P (MAP) Pulse Ox O2 Delivery O2 Flow Rate FiO2 03/12/21 07:49 100 Room Air 03/12/21 07:30 97.7 59 18 124/76 (92) 97.7 Intake and Output 03/12/21 07:00 Intake Total 540 ml Balance 540 ml Intake Oral 540 ml # Voids 2 Physical Exam Abdomen: Soft Heart: Regular rate, Normal S1, Normal S2 Extremities: No clubbing General: Alert HEENT: Atraumatic Lungs: Clear to auscultation MUSCULOSKELETAL: No swelling Neck: Supple Neuro: Normal speech Psych/Mental Status: Mental status NL Skin: No breakdown COMMENT half cast rt leg Diagnosis Problem List Problems Medical Problems: (1) Back pain due to injury Status: Acute (2) Syncope and collapse Status: Acute Assessment Assessment Problems Medical Problems: (1) Back pain due to injury Status: Acute (2) Syncope and collapse Status: Acute FINAL IMPRESSION: 1. Syncope / vasovagal. 2. History of fall. The patient is on Coumadin. No evidence of any bleeding at this point.in r 1.6 low 3. Mechanical aortic valve, on Coumadin. 4. Pacemaker with sick sinus syndrome. 5. Coronary artery disease, previous stents. 6. Schizophrenia, multiple medications. 7. Possible to have orthostatic hypotension causing the fall. 8. Right ankle fracture. PLAN: SNU screen and transfer pacemaker check done labs ok ,inr 2.0 CAM walker boot. At this time, admit to the hospital. Cardiology is consulted. PT, OT, Orthopedic consult. Check orthostatics and see how she improves. Plan Plan of Care Problems Medical Problems: (1) Back pain due to injury Status: Acute (2) Syncope and collapse Status: Acute Comment Review of Relevant I have reviewed the following items yonathan (where applicable) has been applied. Labs Laboratory Tests Test 03/11/21 10:15 03/12/21 05:45 Prothrombin Time 21.8 SEC (11.7-14.0) 21.9 SEC (11.7-14.0) Prothromb Time International Ratio 1.9 (0.8-1.1) 2.0 (0.8-1.1) Medications Current Medications Albuterol Sulfate (Ventolin Neb Soln) 2.5 mg RTQID NEB ; Start 03/12/21 at 08:00 Vitals/I & O Vital Sign - Last 24 Hours 03/11/21 03/11/21 03/11/21 03/11/21 09:43 09:44 09:45 11:00 Temp 97.7 97.7 Pulse 60 60 60 63 Resp 18 B/P (MAP) 178/78 178/78 178/78 143/69 (93) Pulse Ox 96 O2 Delivery Room Air 03/11/21 03/11/21 03/11/21 03/11/21 13:19 13:55 15:30 16:22 Temp 98.2 98.2 Pulse 59 Resp 18 B/P (MAP) 151/76 (101) Pulse Ox 96 96 96 95 O2 Delivery Room Air Room Air Room Air Room Air 03/11/21 03/11/21 03/11/21 03/11/21 16:48 19:00 19:49 20:00 Temp 98.2 98.2 Pulse 62 Resp 18 B/P (MAP) 106/60 (75) Pulse Ox 95 94 94 O2 Delivery Room Air Room Air Room Air Room Air 03/11/21 03/11/21 03/11/21 03/12/21 22:04 23:00 23:51 00:24 Temp 98.6 98.6 Pulse 62 70 Resp 18 20 B/P (MAP) 106/60 134/73 (93) Pulse Ox 97 95 O2 Delivery Room Air Room Air Room Air 03/12/21 03/12/21 03/12/21 03:00 07:30 07:49 Temp 98.4 97.7 98.4 97.7 Pulse 68 59 Resp 18 18 B/P (MAP) 137/65 (89) 124/76 (92) Pulse Ox 95 96 100 O2 Delivery Room Air Room Air Room Air Intake and Output 03/11/21 03/11/21 03/12/21 15:00 23:00 07:00 Intake Total 240 ml 300 ml 0 ml Balance 240 ml 300 ml 0 ml Justifications for Admission Other Justification NICOLE SMITH MD Mar 12, 2021 09:29
--- NOTE | 2021-03-12 09:31 | SNU/HH DC ---
DISCHARGE ORDERS DISCHARGE INFORMATION: DISCHARGE DATE: Mar 12, 2021 FINAL DIAGNOSIS Problems Medical Problems: (1) Back pain due to injury Status: Acute (2) Syncope and collapse Status: Acute CONDITION ON DISCHARGE: Stable CODE STATUS: Code Status: Full FDC: SNF STAY <30 DAYS: Yes HOSPICE: HOSPICE: No LTAC: ADMIT TO LTAC: No POST DISCHARGE ORDERS: ACTIVITY ORDERS: No restrictions, Activity as tolerated WEIGHT BEARING STATUS: Full weight bearing, As tolerated DIET AFTER DISCHARGE: Cardiac WOUND/INCISION CARE: No wound care needed OTHER ORDERS: Suicide precautions. She has one-to-one sitter CHECKS AFTER DISCHARGE: CHECKS AFTER DISCHARGE: Check blood press - daily FOLLOW-UP: LAB ORDERS FOR FOLLOW-UP: PT /inr mon and days weekly ,keep inr 2-3. Additional Instructions: CAM walker boot TREATMENT/EQUIPMENT ORDERS: ADAPTIVE EQUIPMENT NEEDED: None, Brace/splint Physical Therapy For: Evalulation/Treatment DISCHARGE MEDICATIONS: Home Meds Active Scripts Metoprolol Tartrate (METOPROLOL TARTRATE) 25 Mg Tablet, 1 TAB PO BID for htn, #60 TAB 5 Refills Prov:NICOLE SMITH MD 02/16/21 Nitroglycerin (NITROSTAT) 0.4 Mg Tab.subl, 0.4 MG SL PRN Q5MIN PRN for CHEST PAIN, #25 TAB Prov:HARRY DE LA VEGA MD 12/14/20 Hydrocodone Bit/Acetaminophen (HYDROCODONE-APAP 5-325 ) 1 Tab Tablet, 1 TAB PO PRN Q6HRS PRN for PAIN for 7 Days, #20 TAB Prov:HARRY DE LA VEGA MD 12/14/20 Atorvastatin Calcium (ATORVASTATIN CALCIUM) 10 Mg Tablet, 10 MG PO QHS, #30 TAB Prov:DARRYL WATSON CLAY PUDDLER 10/23/14 Reported Medications Montelukast Sodium (Montelukast Sodium) 10 Mg Tablet, 1 TAB PO QHS for congestion 12/13/20 Levothyroxine Sodium (LEVOTHYROXINE SODIUM) 25 Mcg Tablet, 1 TAB PO DAILY for hypothyroid 12/13/20 Tramadol Hcl (TRAMADOL HCL) 50 Mg Tablet, 1 TAB PO PRN Q12HR PRN for PAIN 12/13/20 Albuterol Sulfate (Proair Hfa) 8.5 Gm Hfa.aer.ad, 1 PUFF IH Q4HRS for wheezing 12/13/20 Omeprazole (OMEPRAZOLE) 40 Mg Capsule.dr, 1 CAP PO DAILY for GERD 12/13/20 Furosemide (FUROSEMIDE) 20 Mg Tablet, 1 TAB PO DAILY for chf 12/13/20 Potassium Chloride (KLOR-CON M20) 20 Meq Tab.er.prt, 1 TAB PO BID for supplement 12/13/20 Quetiapine Fumarate (QUETIAPINE FUMARATE) 200 Mg Tablet, 2.5 TAB PO QHS for depression 12/12/20 Divalproex Sodium (DIVALPROEX SODIUM) 500 Mg Tablet.dr, 500 MG PO BID, TAB 07/21/19 Fluoxetine Hcl (FLUOXETINE HCL) 40 Mg Capsule, 40 MG PO DAILY for depression, CAP 07/20/19 Trazodone Hcl (TRAZODONE HCL) 50 Mg Tablet, 50 MG PO HS for insomnia, TAB 07/20/19 Isosorbide Mononitrate (ISOSORBIDE MONONITRATE ER) 30 Mg Tab.er.24h, 1 TAB PO DAILY, #30 TAB 5 Refills 05/04/18 Warfarin Sodium (WARFARIN SODIUM) 5 Mg Tablet, 1 TAB PO DAILY, #90 TAB 1 Refill 05/04/18 Olanzapine (ZYPREXA) 15 Mg Tablet, 1 TAB PO QHS, #30 TAB 02/20/17 Lisinopril (LISINOPRIL) 20 Mg Tablet, 1 TAB PO DAILY, #30 TAB 5 Refills 02/20/17 Discontinued Scripts Hydrocodone Bit/Acetaminophen (HYDROCODONE-APAP 5-325 ) 1 Tab Tablet, 1 TAB PO PRN Q6HRS PRN for PAIN for 5 Days, #20 TAB 0 Refills Prov:SARATH ARAYA APRN 03/07/21 NICOLE SMITH MD Mar 12, 2021 09:31
[2021-03-12] MEDS ORDERED: WARF7.5T45 PO (09:32)
[2021-03-12] MEDS: LEVOTHYROXINE 25 MCG TABLET. PO SCH (09:58)
[2021-03-12] MEDS: POTASSIUM CHLORIDE 20 MEQ TABLET.ER. PO SCH (09:59)
[2021-03-12] MEDS: ISOSORBIDE MONONITRATE ER 30 MG TAB.ER.24H PO SCH (09:59)
[2021-03-12] MEDS: METOPROLOL TART IMMED RELEASE 25 MG TABLET. PO SCH (09:59)
[2021-03-12] MEDS: DIVALPROEX DELAYED RELEASE 500 MG TABLET.DR. PO SCH (09:59)
[2021-03-12] MEDS: PANTOPRAZOLE 40 MG TABLET.DR. PO SCH (10:00)
[2021-03-12] MEDS: HYDROcodone/APAP 5/325MG 1 TAB TABLET PO PRN (10:00)
[2021-03-12] MEDS: LISINOPRIL 20 MG TABLET PO SCH (10:00)
[2021-03-12] MEDS: FUROSEMIDE 20 MG TABLET PO SCH (10:01)
[2021-03-12] MEDS: FLUoxetine HCL 20 MG CAPSULE PO SCH (10:01)
--- NOTE | 2021-03-12 10:47 | NUR ---
PADMINI following. Discussed with RN, insurance approved transfer to [facility]. Discharge orders faxed. Awaiting transportation time. RN notified. PADMINI will continue to follow. Addendum: 03/12/21 at 1255 by NENA WASHINGTON Transportation arranged for 1300. RN notified.
[2021-03-12 11:40] VITALS: BP 128/81
--- NOTE | 2021-03-12 14:34 | NUR ---
pt [facility], was picked up by their transport at 1330. took splint off the right ankle and cam walker boot was put up. Justin Apodaca RN
--- NOTE | 2021-03-19 14:25 | NUR ---
MgSo4 given at 11:00 on 03/10/21--stop time 13:00 on 03/10/21
== END 2021-03-12 13:30 ==
LOC: ER 22:04 → INTOOBSV 03-10 01:06 → ED HOLD 03-10 01:06 → 6 SOUTH 03-10 03:28
PROVIDERS: ADMIT Internal Medicine; ATTEND Internal Medicine
DX: R55 Syncope and collapse (principal); Z20.822 Contact with and (suspected) exposure to COVID-19; S82.831A Other fracture of upper and lower end of right fibula, initial encounter for closed fracture; I49.5 Sick sinus syndrome; F20.9 Schizophrenia, unspecified; I25.10 Atherosclerotic heart disease of native coronary artery without angina pectoris; K21.9 Gastro-esophageal reflux disease without esophagitis; K31.84 Gastroparesis; F31.9 Bipolar disorder, unspecified; E78.5 Hyperlipidemia, unspecified; E83.42 Hypomagnesemia; G40.909 Epilepsy, unspecified, not intractable, without status epilepticus; I11.0 Hypertensive heart disease with heart failure; I50.9 Heart failure, unspecified; J44.9 Chronic obstructive pulmonary disease, unspecified; I35.1 Nonrheumatic aortic (valve) insufficiency; I25.2 Old myocardial infarction; I48.91 Unspecified atrial fibrillation; Z79.01 Long term (current) use of anticoagulants; Z90.710 Acquired absence of both cervix and uterus; Z79.899 Other long term (current) drug therapy; Z98.890 Other specified postprocedural states; Z95.0 Presence of cardiac pacemaker; Z95.1 Presence of aortocoronary bypass graft; Z86.73 Personal history of transient ischemic attack (TIA), and cerebral infarction without residual deficits; Z87.11 Personal history of peptic ulcer disease; Z91.81 History of falling; Z95.2 Presence of prosthetic heart valve; Z95.5 Presence of coronary angioplasty implant and graft; W18.30XA Fall on same level, unspecified, initial encounter; Y92.89 Other specified places as the place of occurrence of the external cause; Y93.89 Activity, other specified; Y99.8 Other external cause status
CPT/HCPCS: 36415; 70450; 71250; 72125; 74176; 80053; 81001; 83735; 83880; 84443; 84484; 85025; 85610; 93005; 94640; 96365; 96366; 96372; 96375; 96376; 97110; 97116; 97162; 97165; 97530; 99285; G0378; J1650; J3010; J3475; J7613; U0003; U0005; 96374; G0379; 99291-25

== ENCOUNTER 2021-05-08 11:23 | Emergency (ER) | payer MEDICAID, MEDICARE ==
[~2021-05-08] VITALS: Ht 157.5 cm; Wt 68.0 kg
[~2021-05-08 11:23] MED LIST changes: +OLAN10TA69 PO; -OLAN10TA9 PO; +OLAN5TAB67 PO; -OLAN5TAB9 PO; -QUET200T PO; +QUET200T2 PO
[2021-05-08 12:39] LABS: BASO % 1 % (0-3); EOS % 1 % (0-3); HEMATOCRIT 39.8 % (36.0-47.0); HEMOGLOBIN 13.5 g/dL (12.0-15.5); LYMPH # 1.1 x10^3/uL (1.0-4.8); LYMPH % 22 % (24-48); MEAN CORPUSCULAR HEMOGLOBIN 28 pg (25-35); MEAN CORPUSCULAR HGB CONC 34 g/dL (31-37); MEAN CORPUSCULAR VOLUME 83 fL (79-100); MONO # 0.4 x10^3/uL (0.0-1.1); MONO % 9 % (0-9); NEUT # 3.3 x10^3/uL (1.8-7.7); NEUT % 67 % (31-73); PLATELET COUNT 124 x10^3/uL (140-400); RED BLOOD COUNT 4.82 x10^6/uL (3.50-5.40); RED CELL DISTRIBUTION WIDTH 14.8 % (11.5-14.5); WHITE BLOOD COUNT 4.9 x10^3/uL (4.0-11.0)
[2021-05-08 13:00] LABS: CALCIUM 8.8 mg/dL (8.5-10.1); CREATININE 0.7 mg/dL (0.6-1.0); GFR 85.4; POTASSIUM 3.7 mmol/L (3.5-5.1)
--- NOTE | 2021-05-08 13:02 | RAD ---
EXAMINATION: CT head, cervical, thoracic and lumbar spine without IV contrast INDICATION:60 years, Female, fall, hit head. COMPARISON: CT dated 03/09/2021. Radiograph dated 12/12/2020. CT abdomen and pelvis dated 01/01/2020. TECHNIQUE: Axial CT images of the head, cervical, thoracic and lumbar spine were obtained without IV contrast. Sagittal and coronal 2D reformatted series were provided by the technologist. Soft tissue a nd bone window algorithms were reviewed. Exposure: One or more of the following individualized dose reduction techniques were utilized for thi s examination: 1. Automated exposure control 2. Adjustment of the mA and/or kV according to patient size 3. Use of iterative reconstruction technique. FINDINGS: CT brain: Neither mass, midline shift, intracranial hemorrhage, acute/subacute ischemic changes, nor extraaxial fluid collections are seen. The brain parenchyma is normal in appearance. The ventricles are normal in size. The paranasal sinuses, mastoid air cells, and middle ears are clear.The orbital contents appear withi n normal limits. CT cervical spine: Anatomic alignment of the cervical spine is maintained. Neither fracture, subluxation, nor traumatic spondylolisthesis is seen. The vertebral body heights are preserved. Mild multilevel degenerative darcie nges in the spine. There is no evidence of a large intraspinal hematoma. The prevertebral and paraver tebral soft tissues are within normal limits. CT thoracic spine: The thoracic spine is normally aligned. Age indeterminate mild compression fracture of the superior e ndplate of T12 vertebral body with loss of less than 25 percent of the body height, new since December 13. Unchanged mild to moderate compression fractures of the T9 and T10 vertebral bodies. Diffuse ost eopenia. Multilevel degenerative changes in the spine with disc space narrowing and osteophytes.. No aggressive lytic or blastic osseous lesion. No significant spinal canal stenosis or neural foraminal narrowing. The visualized lungs are clear. Small bilateral pleural effusion. Multiple calcified mediastinal lymp h nodes. The visualized thoracic aorta is normal caliber. CT lumbar spine: The thoracic spine is normally aligned. No acute fracture. Mild compression deformity of the inferior endplate of L4 vertebral body, unchanged. The intervertebral disc spaces are normal. No aggressive l ytic or blastic osseous lesion. No significant spinal canal stenosis. Moderate left neuroforaminal na rrowing at C4-5 and L5-S1. IMPRESSION: 1. No acute intracranial abnormality. 2. No acute osseous process in the cervical or lumbar spine. 3. Age indeterminate mild compression fracture of the superior endplate of T12 vertebral body, new si nce December 2020. Correlate with point of tenderness and may consider MRI for further evaluation, as wa rranted. 4. Small bilateral pleural effusions. Electronically signed by: Nel Shah MD (05/08/2021 12:59 PM) [facility]
[2021-05-08 13:04] LABS: ALBUMIN/GLOBULIN RATIO 0.9 (1.0-1.7); MAGNESIUM 1.8 mg/dL (1.8-2.4); TOTAL BILIRUBIN 0.2 mg/dL (0.2-1.0); TOTAL PROTEIN 6.3 g/dL (6.4-8.2)
[2021-05-08 13:20] LABS: BILIRUBIN,URINE NEGATIVE (NEG); CLARITY,URINE CLEAR; COLOR,URINE YELLOW; NITRITE,URINE NEGATIVE (NEG); PROTEIN,URINE NEGATIVE (NEG-TRACE)
[2021-05-08 13:28] LABS: BARBITURATES NEG (NEG); BENZODIAZEPINES NEG (NEG); CANNABINOIDS NEG (NEG); COCAINE NEG (NEG); METHADONE NEG (NEG); OPIATES POS (NEG); PHENCYCLIDINE NEG (NEG)
[2021-05-08 13:30] LABS: AMPHETAMINE/METHAMPHETAMINE NEG (NEG)
--- NOTE | 2021-05-08 13:30 | EKG ---
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
[2021-05-08 13:37] LABS: BACTERIA,URINE 0 /HPF (0-FEW); RBC,URINE TNTC /HPF (0-2); WBC,URINE 0 /HPF (0-4)
--- NOTE | 2021-05-08 14:01 | PHYS DOC ---
Past Medical History Past Medical History: A-Fib, Anxiety, Bipolar, CVA, Hypertension, ME, Renal Disease, Schizophrenia, Other Additional Past Medical Histor: HALLUCINATIONS, AORTIC VALVE DISORDERS, mi 1996, kidney problems (KUNAL RILEY Latasha ENTRY LEVEL MARKETING REPRESENTATIVE) Past Surgical History: Cholecystectomy, Coronary Bypass Surgery, Pacemaker Additional Past Surgical Histo: AVR, defibrillator (KUNAL RILEY Latasha ENTRY LEVEL MARKETING REPRESENTATIVE) Smoking Status: Former Smoker Alcohol Use: None Drug Use: None (KUNAL RILEY Latasha ENTRY LEVEL MARKETING REPRESENTATIVE) General Adult EDM: Chief Complaint: MECHANICAL FALL HPI: HPI: Patient is a 60 year old female with a history of hypertension, schizophrenia, seizures, ME, CVA on Coumadin, anxiety, A. fib among other illnesses who presents the ED today to be evaluated after falling. Patient states she was walking from the bathroom when she fell. Patient denies any loss of consciousness. She states she hit the back of her head on the ground. She is complaining of posterior head pain, neck pain, low back pain and mid back pain. Patient states she blacked out for unknown period of time though the was home and found her immediately. Patient denies any chest pain, shortness of breath. States her pain is worse on the back of the head on palpation. Describes the pain as throbbing and intermittent. Rates the pain is mild. (KUNAL RILEY Latasha ENTRY LEVEL MARKETING REPRESENTATIVE) Review of Systems: Review of Systems: Constitutional: Denies fever or chills. [] Eyes: Denies change in visual acuity. [] HENT: Denies nasal congestion or sore throat. [] Respiratory: Denies cough or shortness of breath. [] Cardiovascular: Denies chest pain or edema. [] GI: Denies abdominal pain, nausea, vomiting, bloody stools or diarrhea. [] : Denies dysuria. [] Musculoskeletal: Reports neck pain, mid and low back pain Integument: Denies rash. [] Neurologic: Reports posterior head pain, loss of consciousness, denies focal weakness or sensory changes. [] Psychiatric: Denies depression or anxiety. [] (OSVALDOKUNAL Latasha ENTRY LEVEL MARKETING REPRESENTATIVE) Heart Score: C/O Chest Pain: N/A Risk Factors: Risk Factors: DM, Current or recent (<one month) smoker, HTN, HLP, family history of CAD, obesity. Risk Scores: Score 0 - 3: 2.5% MACE over next 6 weeks - Discharge Home Score 4 - 6: 20.3% MACE over next 6 weeks - Admit for Clinical Observation Score 7 - 10: 72.7% MACE over next 6 weeks - Early Invasive Strategies (KUNAL RILEY APRN) Allergies: Allergies: Allergies Coded Allergies Type Severity Reaction Last Updated Verified Sulfa (Sulfonamide Antibiotics) Allergy Severe rash, tongue swelling 04/15/15 Yes Iodinated Contrast Media Allergy Intermediate rash 04/15/15 Yes Penicillins Allergy Intermediate Hives 04/15/15 Yes aspirin Allergy Intermediate Hives 04/15/15 Yes codeine Allergy Intermediate Hives; SEE COMMENT 06/08/15 Yes diphenhydramine HCl Allergy Intermediate rash 12/19/13 Yes latex Allergy Intermediate Rash 12/18/13 Yes (KUNAL RILEY APRN) Physical Exam: PE: Constitutional: Well developed, well nourished, no acute distress, non-toxic appearance. [] HENT: Normocephalic, atraumatic, bilateral external ears normal, oropharynx moist, no oral exudates, nose normal. [] Eyes: PERRLA, EOMI, conjunctiva normal, no discharge. [] Neck: Normal range of motion, no tenderness, supple, no stridor. [] Cardiovascular:Heart rate regular rhythm, no murmur [] Lungs & Thorax: Bilateral breath sounds clear to auscultation [] Abdomen: Bowel sounds normal, soft, no tenderness, no masses, no pulsatile masses. [] Skin: Warm, dry, no erythema, no rash. [] Back: No tenderness, no CVA tenderness. [] Extremities: No tenderness, no cyanosis, no clubbing, ROM intact, no edema. [] Neurologic: Alert and oriented X 3, normal motor function, normal sensory function, no focal deficits noted. Cranial nerves II through XII intact Psychologic: Affect normal, judgement normal, mood normal. [] (KUNAL RILEY APRN) Current Patient Data: Labs: Laboratory Tests Test 05/08/21 12:21 05/08/21 13:05 White Blood Count 4.9 x10^3/uL (4.0-11.0) Red Blood Count 4.82 x10^6/uL (3.50-5.40) Hemoglobin 13.5 g/dL (12.0-15.5) Hematocrit 39.8 % (36.0-47.0) Mean Corpuscular Volume 83 fL (79-100) Mean Corpuscular Hemoglobin 28 pg (25-35) Mean Corpuscular Hemoglobin Concent 34 g/dL (31-37) Red Cell Distribution Width 14.8 % (11.5-14.5) H Platelet Count 124 x10^3/uL (140-400) L Neutrophils (%) (Auto) 67 % (31-73) Lymphocytes (%) (Auto) 22 % (24-48) L Monocytes (%) (Auto) 9 % (0-9) Eosinophils (%) (Auto) 1 % (0-3) Basophils (%) (Auto) 1 % (0-3) Neutrophils # (Auto) 3.3 x10^3/uL (1.8-7.7) Lymphocytes # (Auto) 1.1 x10^3/uL (1.0-4.8) Monocytes # (Auto) 0.4 x10^3/uL (0.0-1.1) Eosinophils # (Auto) 0.0 x10^3/uL (0.0-0.7) Basophils # (Auto) 0.0 x10^3/uL (0.0-0.2) Sodium Level 145 mmol/L (136-145) Potassium Level 3.7 mmol/L (3.5-5.1) Chloride Level 106 mmol/L (98-107) Carbon Dioxide Level 33 mmol/L (21-32) H Anion Gap 6 (6-14) Blood Urea Nitrogen 15 mg/dL (7-20) Creatinine 0.7 mg/dL (0.6-1.0) Estimated GFR (Cockcroft-Gault) 85.4 BUN/Creatinine Ratio 21 (6-20) H Glucose Level 94 mg/dL (70-99) Lactic Acid Level 1.5 mmol/L (0.4-2.0) Calcium Level 8.8 mg/dL (8.5-10.1) Magnesium Level 1.8 mg/dL (1.8-2.4) Total Bilirubin 0.2 mg/dL (0.2-1.0) Aspartate Amino Transferase (AST) 13 U/L (15-37) L Alanine Aminotransferase (ALT) 13 U/L (14-59) L Alkaline Phosphatase 72 U/L (46-116) Troponin I Quantitative < 0.017 ng/mL (0.000-0.055) ZS-Nhk-C-Type Natriuretic Peptide 1164 pg/mL (0-124) H Total Protein 6.3 g/dL (6.4-8.2) L Albumin 3.0 g/dL (3.4-5.0) L Albumin/Globulin Ratio 0.9 (1.0-1.7) L Urine Collection Type U cath Urine Color Yellow Urine Clarity Clear Urine pH 7.0 (<5.0-8.0) Urine Specific [place] 1.025 (1.000-1.030) Urine Protein Negative mg/dL (NEG-TRACE) Urine Glucose (UA) Negative mg/dL (NEG) Urine Ketones (Stick) Trace mg/dL (NEG) Urine Blood Large (NEG) Urine Nitrite Negative (NEG) Urine Bilirubin Negative (NEG) Urine Urobilinogen Dipstick 1.0 mg/dL (0.2 mg/dL) Urine Leukocyte Esterase Trace (NEG) Urine RBC Tntc /HPF (0-2) Urine WBC 0 /HPF (0-4) Urine Bacteria 0 /HPF (0-FEW) Urine Mucus Marked /LPF Urine Opiates Screen Pos (NEG) Urine Methadone Screen Neg (NEG) Urine Barbiturates Neg (NEG) Urine Phencyclidine Screen Neg (NEG) Urine Amphetamine/Methamphetamine Neg (NEG) Urine Benzodiazepines Screen Neg (NEG) Urine Cocaine Screen Neg (NEG) Urine Cannabinoids Screen Neg (NEG) Urine Ethyl Alcohol Neg (NEG) Laboratory Tests 05/08/21 12:21 Laboratory Tests 05/08/21 12:21 Vital Signs: Vital Signs Date Time Temp Pulse Resp B/P (MAP) Pulse Ox O2 Delivery O2 Flow Rate FiO2 05/08/21 13:12 60 20 163/70 (101) 94 Room Air 05/08/21 11:55 98.2 98.2 (KUNAL RILEY ) EKG: EK interpreted by Dr. Hdez sinus rhythm heart rate 61 no STEMI [] (KUNAL RILEY ) Radiology/Procedures: Radiology/Procedures: []PROCEDURE: CT THORACIC SPINE WO CONTRAST EXAMINATION: CT head, cervical, thoracic and lumbar spine without IV contrast INDICATION:60 years, Female, fall, hit head. COMPARISON: CT dated 03/09/2021. Radiograph dated 12/12/2020. CT abdomen and pelvis dated 01/01/2020. TECHNIQUE: Axial CT images of the head, cervical, thoracic and lumbar spine were obtained without IV contrast. Sagittal and coronal 2D reformatted series were provided by the technologist. Soft tissue and bone window algorithms were reviewed. Exposure: One or more of the following individualized dose reduction techniques were utilized for this examination: 1. Automated exposure control 2. Adjustment of the mA and/or kV according to patient size 3. Use of iterative reconstruction technique. FINDINGS: CT brain: Neither mass, midline shift, intracranial hemorrhage, acute/subacute ischemic changes, nor extraaxial fluid collections are seen. The brain parenchyma is normal in appearance. The ventricles are normal in size. The paranasal sinuses, mastoid air cells, and middle ears are clear.The orbital contents appear within normal limits. CT cervical spine: Anatomic alignment of the cervical spine is maintained. Neither fracture, subluxation, nor traumatic spondylolisthesis is seen. The vertebral body heights are preserved. Mild multilevel degenerative changes in the spine. There is no evidence of a large intraspinal hematoma. The prevertebral and paravertebral soft tissues are within normal limits. CT thoracic spine: The thoracic spine is normally aligned. Age indeterminate mild compression fracture of the superior endplate of T12 vertebral body with loss of less than 25 percent of the body height, new since December 2020. Unchanged mild to moderate compression fractures of the T9 and T10 vertebral bodies. Diffuse osteopenia. Mu ltilevel degenerative changes in the spine with disc space narrowing and osteophytes.. No aggressive lytic or blastic osseous lesion. No significant spinal canal stenosis or neural foraminal narrowing. The visualized lungs are clear. Small bilateral pleural effusion. Multiple calcified mediastinal lymph nodes. The visualized thoracic aorta is normal caliber. CT lumbar spine: The thoracic spine is normally aligned. No acute fracture. Mild compression deformity of the inferior endplate of L4 vertebral body, unchanged. The intervertebral disc spaces are normal. No aggressive lytic or blastic osseous lesion. No significant spinal canal stenosis. Moderate left neuroforaminal narrowing at C4-5 and L5-S1. IMPRESSION: 1. No acute intracranial abnormality. 2. No acute osseous process in the cervical or lumbar spine. 3. Age indeterminate mild compression fracture of the superior endplate of T12 vertebral body, new since December 2020. Correlate with point of tenderness and may consider MRI for further evaluation, as warranted. 4. Small bilateral pleural effusions. Electronically signed by: Мария Shah MD (05/08/2021 12:59 PM) [facility] DICTATED and SIGNED BY: МАРИЯ SHAH MD DATE: 05/08/21 [id number] (KUNAL RILEY ENTRY LEVEL MARKETING REPRESENTATIVE) Course & Med Decision Making: Course & Med Decision Making Pertinent Labs and Imaging studies reviewed. (See chart for details) This is a 60-year-old female patient presented to the ED today to be evaluated after falling at home. She reports loss of consciousness. CT of the head, cervical spine, lumbar spine are negative for any acute findings, CT of thoracic spine noted for age-indeterminate T12 vertebral body fracture. Lab work with no acute findings including UA. Patient discharged home. Follow-up with PCP next week (KUNAL RILEY ENTRY LEVEL MARKETING REPRESENTATIVE) Dragon Disclaimer: Dragjason Disclaimer: This electronic medical record was generated, in whole or in part, using a voice recognition dictation system. (KUNAL RILEY ENTRY LEVEL MARKETING REPRESENTATIVE) Departure Departure Impression: Primary Impression: Fall Qualified Codes: W19.XXXA - Unspecified fall, initial encounter Additional Impressions: T12 vertebral fracture Qualified Codes: S22.088A - Other fracture of t11-T12 vertebra, initial en counter for closed fracture Acute cervical sprain Qualified Codes: S13.9XXA - Sprain of joints and ligaments of unspecified parts of neck, initial encounter Disposition: HOME / SELF CARE / HOMELESS Condition: STABLE Referrals: NICOLE SMITH MD (PCP) follow up next week VERNELL MUELLER MD follow up next week Patient Instructions: Fall Prevention and Home Safety, Vertebral Fracture, [id number] Additional Instructions: You were evaluated in the emergency room after falling. Your CT of the head, neck and low back are negative for any acute findings. CT of the mid back is noted for an old T12 vertebral body fracture. This needs to be followed up with your primary care doctor or the provided neurosurgeon. Come back to the ED at any point symptoms worsen. Follow-up with your doctor next week Attending Signature I have participated in the care of this patient and I have reviewed and agree with all pertinent clinical information above including history, exam, and recommendations. (BAILEY HDEZ DO) KUNAL RILEY ENTRY LEVEL MARKETING REPRESENTATIVE May 08, 2021 14:01 BAILEY HDEZ DO May 08, 2021 14:15
[2021-05-08 15:44] VITALS: BP 149/67
== END 2021-05-08 15:40 | disposition home or self-care (01) ==
LOC: ER 11:23
DX: S22.089A Unspecified fracture of T11-T12 vertebra, initial encounter for closed fracture (principal); S13.9XXA Sprain of joints and ligaments of unspecified parts of neck, initial encounter; R51.9 Headache, unspecified; I48.91 Unspecified atrial fibrillation; F41.9 Anxiety disorder, unspecified; F31.9 Bipolar disorder, unspecified; I10 Essential (primary) hypertension; I25.2 Old myocardial infarction; F20.9 Schizophrenia, unspecified; Z95.1 Presence of aortocoronary bypass graft; Z95.0 Presence of cardiac pacemaker; Z88.2 Allergy status to sulfonamides; Z91.041 Radiographic dye allergy status; Z88.6 Allergy status to analgesic agent; Z88.5 Allergy status to narcotic agent; Z91.040 Latex allergy status; Z88.8 Allergy status to other drugs, medicaments and biological substances; W18.39XA Other fall on same level, initial encounter; Y93.89 Activity, other specified; Y92.89 Other specified places as the place of occurrence of the external cause; Y99.8 Other external cause status
CPT/HCPCS: 36415; 70450; 72125; 72128; 72131; 80053; 80307; 81001; 83605; 83735; 83880; 84484; 85025; 85610; 87086; 93005; 99285

== ENCOUNTER → 2021-06-11 | Outpatient (CLI) | payer OTHER, MEDICAID ==
[2021-05-22 15:00] VITALS: BP 149/70
[~2021-06-11] MED LIST changes: +AMLO-186 PO; +LISI-130 PO; +POTA-121 PO
--- NOTE | 2021-06-11 09:49 | RAD ---
INDICATION: Reason: SDH / Spl. Instructions: / History: COMPARISON: May 22, 2021 TECHNIQUE: Axial CT images obtained through the head without intravenous contrast. One or more of the following individualized dose reduction techniques were utilized for this examinat ion: 1. Automated exposure control; 2. Adjustment of the mA and/or kV according to patient size; 3 . Use of iterative reconstruction technique. FINDINGS: The previously identified subdural hemorrhage at the right cerebral hemisphere as well as layering al carlos the tentorium appears either resolved or nearly resolved. No significant midline shift. Ventricles and sulci are globally prominent. Scattered foci of low attenuation within the white matter. There is some hyperostosis of calvarium again seen. IMPRESSION: * Interval decrease in the previously identified right-sided subdural hemorrhage with the majority of the hemorrhage resolved. * Scattered regions of low attenuation within the white matter. Non-specific in nature but a common finding and frequently secondary to small vessel ischemic disease. Electronically signed by: Thom Laguerre MD (06/11/2021 9:46 AM) [id number]
== END ==
LOC: CT 10:54
PROVIDERS: ATTEND Neurological Surgery
DX: I67.82 Cerebral ischemia (principal)
CPT/HCPCS: 70450

== ENCOUNTER 2021-06-18 16:36 | Emergency (ER) | payer OTHER, MEDICAID ==
[~2021-06-18] VITALS: Ht 154.9 cm; Wt 82.2 kg
[2021-06-18 17:19] LABS: BASO # 0.1 x10^3/uL (0.0-0.2); BASO % 1 % (0-3); EOS # 0.1 x10^3/uL (0.0-0.7); EOS % 1 % (0-3); HEMATOCRIT 38.1 % (36.0-47.0); HEMOGLOBIN 12.8 g/dL (12.0-15.5); LYMPH # 1.4 x10^3/uL (1.0-4.8); LYMPH % 19 % (24-48); MEAN CORPUSCULAR HEMOGLOBIN 28 pg (25-35); MEAN CORPUSCULAR HGB CONC 34 g/dL (31-37); MEAN CORPUSCULAR VOLUME 84 fL (79-100); MONO # 0.4 x10^3/uL (0.0-1.1); MONO % 5 % (0-9); NEUT # 5.7 x10^3/uL (1.8-7.7); NEUT % 74 % (31-73); PLATELET COUNT 225 x10^3/uL (140-400); RED BLOOD COUNT 4.52 x10^6/uL (3.50-5.40); RED CELL DISTRIBUTION WIDTH 15.8 % (11.5-14.5); WHITE BLOOD COUNT 7.6 x10^3/uL (4.0-11.0)
--- NOTE | 2021-06-18 17:23 | PHYS DOC ---
Past Medical History Past Medical History: A-Fib, Anxiety, Bipolar, CVA, Hypertension, CA, Renal Disease, Schizophrenia, Other Additional Past Medical Histor: HALLUCINATIONS, AORTIC VALVE DISORDERS, mi 1996, kidney problems (LUDIVINAKUNAL Louie MUFFLER INSTALLER) Past Surgical History: Cholecystectomy, Coronary Bypass Surgery, , Hysterectomy, Pacemaker Additional Past Surgical Histo: AVR, defibrillator (OSVALDOKUNAL MUFFLER INSTALLER) Smoking Status: Never Smoker Alcohol Use: None Drug Use: None (JADIELKUNAL STROUD MUFFLER INSTALLER) General Adult EDM: Chief Complaint: MULTIPLE TRAUMA/FALL HPI: HPI: Patient is a 60 year old female with history of A. fib on Coumadin, hypertension,schizophrenia, CVA, anxiety, kidney disease, head bleed 1 month ago who presents to the ED today to be evaluated after falling. Patient has history of frequent falls. Patient states she was walking to her kitchen when she fell. Denies any loss of consciousness. She states she hit the left side of her face on a wall. She is complaining of a mild intermittent left headache, left facial pain, posterior neck pain, left hip pain, and left ankle pain. Patient states pain is worse on movement as well as touching the affected areas. (KUNAL RILEY MUFFLER INSTALLER) Review of Systems: Review of Systems: Constitutional: Denies fever or chills. [] Eyes: Denies change in visual acuity. [] HENT: Reports left facial pain. Denies nasal congestion or sore throat. [] Respiratory: Denies cough or shortness of breath. [] Cardiovascular: Denies chest pain or edema. [] GI: Denies abdominal pain, nausea, vomiting, bloody stools or diarrhea. [] : Denies dysuria. [] Musculoskeletal: Reports low back pain, left ankle pain Integument: Denies rash. [] Neurologic: Reports left-sided headache, denies focal weakness or sensory changes. [] Psychiatric: Denies depression or anxiety. [] (KUNAL RILEY MUFFLER INSTALLER) Heart Score: C/O Chest Pain: N/A Risk Factors: Risk Factors: DM, Current or recent (<one month) smoker, HTN, HLP, family history of CAD, obesity. Risk Scores: Score 0 - 3: 2.5% MACE over next 6 weeks - Discharge Home Score 4 - 6: 20.3% MACE over next 6 weeks - Admit for Clinical Observation Score 7 - 10: 72.7% MACE over next 6 weeks - Early Invasive Strategies (MUTUNGA,KUNAL M MUFFLER INSTALLER) Allergies: Allergies: Allergies Coded Allergies Type Severity Reaction Last Updated Verified Sulfa (Sulfonamide Antibiotics) Allergy Severe rash, tongue swelling 04/15/15 Yes Iodinated Contrast Media Allergy Intermediate rash 04/15/15 Yes Penicillins Allergy Intermediate Hives 04/15/15 Yes aspirin Allergy Intermediate Hives 04/15/15 Yes codeine Allergy Intermediate Hives; SEE COMMENT 06/08/15 Yes diphenhydramine HCl Allergy Intermediate rash 12/19/13 Yes latex Allergy Intermediate Rash 12/18/13 Yes (MUTUNGA,KUNAL M MUFFLER INSTALLER) Physical Exam: PE: Constitutional: Well developed, well nourished, no acute distress, non-toxic appearance. [] HENT: Normocephalic, bilateral external ears normal, oropharynx moist, no oral exudates, nose normal. [] Eyes: Left pupil is bigger than the right, this was present in May when she had a head bleed, PERRLA, EOMI, conjunctiva normal, no discharge. [] Neck: Patient is in a c-collar, limited range of motion to the cervical spine mostly due to the c-collar, diffuse paraspinal muscle tenderness bilateral posterior cervical spine with slight midline cervical spine tenderness, supple, no stridor. [] Cardiovascular:Heart rate regular rhythm Lungs & Thorax: Bilateral breath sounds clear to auscultation [] Abdomen: Bowel sounds normal, soft, no tenderness, no masses, no pulsatile masses. [] Skin: Warm, dry, no erythema, no rash. [] Back: Tenderness on the coccyx, no CVA tenderness. [] Extremities: No tenderness, no cyanosis, no clubbing, ROM intact, no edema. Right lower extremity in an Ortho boot. Left lower extremity with no obvious deformity, tenderness on palpation of the left lateral ankle. Full passive range of motion to the left ankle and foot. No navicular bone tenderness, no tenderness to the base of the fifth metatarsal of the left foot. +2 left pedal pulse. Bilateral lower extremities with no obvious deformity. Tenderness on palpation of the left lateral hip. Full range of motion to the left hip. Neurologic: Alert and oriented X 3, normal motor function, normal sensory function, no focal deficits noted. Cranial nerves II through XII intact Psychologic: Affect normal, judgement normal, mood normal. [] (KUNAL RILEY MUFFLER INSTALLER) Current Patient Data: Labs: Laboratory Tests Test 06/18/21 17:01 Glucose (Fingerstick) 118 mg/dL (70-99) H (KUNAL RILEY MUFFLER INSTALLER) EKG: EK interpreted by Dr. Patel sinus rhythm heart rate 65 no STEMI [] (KUNAL RILEY MUFFLER INSTALLER) Radiology/Procedures: Radiology/Procedures: []PROCEDURE: CT MAXILLOFACIAL WO CONTRAST Examination: CT head, cervical spine, maxillofacial bones without contrast HISTORY: Fall, pain CT HEAD INDICATION: Reason: fall pain / Spl. Instructions: / History: COMPARISON: None Available. Exposure: One or more of the following individualized dose reduction techniques were utilized for this examination: 1. Automated exposure control 2. Adjustment of the mA and/or kV according to patient size 3. Use of iterative reconstruction technique TECHNIQUE: 5 mm contiguous axial images were obtained from the skull base to the vertex in both bone and soft tissue algorithm. FINDINGS: No abnormal attenuation within the brain parenchyma. No evidence of acute intracranial hemorrhage. No extra-axial fluid collections. No mass effect or midline shift. Ventricular size is appropriate. Basal cisterns are patent. No fractures identified.Ramachandran-white differentiation is preserved.Globes and orbits are within normal limits. Paranasal sinuses and mastoid air cells are clear. CT CERVICAL SPINE INDICATION: Reason: fall pain / Spl. Instructions: / History: COMPARISON: None Available. Technique: 2.5 mm contiguous axial images were obtained from the skull base through the cervicothoracic junction in both bone and soft tissue algorithm. Additional sagittal and coronal reconstructions were also performed. FINDINGS: Vertebral body height and alignment are maintained. Cervical lordosis is preserved. The lateral masses of C1 are aligned upon C2. No fractures identified. The bony canal is patent throughout. Mild intervertebral disc height loss identified in the cervical spine likely degenerative changes.. The paraspinous soft tissues are unremarkable. Visualized intracranial contents are unremarkable. Lung apices are clear. EXAM: CT FACIAL BONES WITHOUT CONTRAST Findings: Reason: fall pain / Spl. Instructions: / History: INDICATION: . COMPARISON: None TECHNIQUE: Noncontrast images of the facial bones are performed. Coronal and sagittal reformatted images are also presented for interpretation. FINDINGS: No fracture, dislocation or other acute bony abnormality is identified. There is no soft tissue abnormality or radiopaque foreign body. Small mucous retention cyst or polyp identified in the left maxillary sinus.. The globes and orbits are intact in CT appearance. There is no retrobulbar hematoma. IMPRESSION: 1. No acute intracranial findings. 2. No acute fracture of the cervical spine. 3. No acute facial bone fracture. Electronically signed by: Clem Castro MD (06/18/2021 6:20 PM) [id number] DICTATED and SIGNED BY: CLEM CASTRO MD DATE: 06/18/21 [id number] PROCEDURE: CT LUMBAR SPINE WO CONTRAST INDICATION: Reason: fall pain / Spl. Instructions: / History: . COMPARISON: Plain film from May 14, [address] from May 08, 2021 TECHNIQUE: Axial CT images obtained through the lumbar spine. One or more of the following individualized dose reduction techniques were utilized for this examination: 1. Automated exposure control; 2. Adjustment of the mA and/or kV according to patient size; 3. Use of iterative reconstruction technique. FINDINGS: No evidence of dislocation. Degenerative changes the spine with osteophyte formation at the vertebral body endplates as well as some disc protrusions and facet hypertrophy. Mild loss of height of the inferior endplate of L4 vertebral body. T12 mild to moderate superior endplate compression deformity again seen with some sclerosis. Calcific atherosclerosis. Partial visualization of colonic diverticulosis. IMPRESSION: * Repeat demonstration of compression deformities of L4 and T12 without a new compression fracture seen Electronically signed by: Brant Byers MD (06/18/2021 6:23 PM) [id number] DICTATED and SIGNED BY: BRANT BYERS MD DATE: 06/18/21 [id number] (KUNAL RILEY APRN) Course & Med Decision Making: Course & Med Decision Making Pertinent Labs and Imaging studies reviewed. (See chart for details) This is a 60-year-old female patient well-known to this ED presenting today to be evaluated after falling. Patient has been seen in this ED multiple times after falling. She was seen in the ED a month ago and had a head bleed. She is on Coumadin. CT of the head, cervical spine and facial bones are negative for any acute findings. CT of lumbar spine noted for old compression of L4 and T12. No new fractures UA negative. Potassium 3.3, given oral potassium replacement otherwise no significant acute findings on labs Left hip x-rays including pelvis were negative for any acute findings as interpreted by Dr. Olmos left ankle x-rays were noted for an old fibula fracture which patient is aware of she is currently in an orthotic boot for the right ankle fracture. She follows up with orthopedic doctor. She was provided return precautions and discharged in stable condition. (KUNAL RILEY APRN) Course & Med Decision Making I was the Attending physician on the above date of service of this patient. This patient was evaluated, examined, treated, and dispositioned from the emergency department by the mid-level practitioner. Although I was working at the time , no assistance was requested. Electronically signed, Volodymyr Olmos DO (VOLODYMYR OLMOS DO) Dragon Disclaimer: Augustin Disclaimer: This electronic medical record was generated, in whole or in part, using a voice recognition dictation system. (KUNAL RILEY APRN) Departure Departure Impression: Primary Impression: Fall from standing Qualified Codes: W19.XXXA - Unspecified fall, initial encounter Additional Impressions: Facial contusion Qualified Codes: S00.83XA - Contusion of other part of head, initial encounter Contusion of left hip Qualified Codes: S70.02XA - Contusion of left hip, initial encounter Acute cervical sprain Qualified Codes: S13.9XXA - Sprain of joints and ligaments of unspecified parts of neck, initial encounter Left fibular fracture Qualified Codes: S82.832A - Other fracture of upper and lower end of left fibula, initial encounter for closed fracture Lumbar contusion Qualified Codes: S30.0XXA - Contusion of lower back and pelvis, initial encounter Disposition: 01 HOME / SELF CARE / HOMELESS Condition: STABLE Referrals: NICOLE SMITH MD (PCP) Follow-up in the course of this week Patient Instructions: Contusion, [id number], Fall Prevention and Home Safety Additional Instructions: You were evaluated in the emergency room after falling, your CT of the head, facial bones, neck and low back were negative for any acute findings. Left hip x-rays were negative for any acute findings, your left ankle x-rays were noted for an old fibula fracture. Please follow-up with your own primary care doctor and orthopedic doctor in the course of this week. KUNAL RILEY APRN Jun 18, 2021 17:23 VOLODYMYR OLMOS DO Jun 19, 2021 01:38
[2021-06-18] MEDS ORDERED: fentaNYL PF VIAL 100 MCG/2 ML VIAL IVP ONE (17:45)
[2021-06-18 17:47] LABS: CALCIUM 8.5 mg/dL (8.5-10.1); CREATININE 0.7 mg/dL (0.6-1.0); GFR 85.4; POTASSIUM 3.3 mmol/L (3.5-5.1)
[2021-06-18 17:53] LABS: ALBUMIN 3.2 g/dL (3.4-5.0); ALBUMIN/GLOBULIN RATIO 0.9 (1.0-1.7); MAGNESIUM 1.6 mg/dL (1.8-2.4); TOTAL BILIRUBIN 0.3 mg/dL (0.2-1.0); TOTAL PROTEIN 6.6 g/dL (6.4-8.2)
[2021-06-18 18:05] LABS: PROTHROMBIN TIME PATIENT 25.2 SEC (11.7-14.0)
--- NOTE | 2021-06-18 18:19 | EKG ---
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
--- NOTE | 2021-06-18 18:23 | RAD ---
Examination: CT head, cervical spine, maxillofacial bones without contrast HISTORY: Fall, pain CT HEAD INDICATION: Reason: fall pain / Spl. Instructions: / History: COMPARISON: None Available. Exposure: One or more of the following individualized dose reduction techniques were utilized for thi s examination: 1. Automated exposure control 2. Adjustment of the mA and/or kV according to patient size 3. Use of iterative reconstruction technique TECHNIQUE: 5 mm contiguous axial images were obtained from the skull base to the vertex in both bone and soft tissue algorithm. FINDINGS: No abnormal attenuation within the brain parenchyma. No evidence of acute intracranial hemorrhage. No extra-axial fluid collections. No mass effect or midline shift. Ventricular size is appropriate. Basal cisterns are patent. No fractures identified.Ramachandran-white differentiation is preserved.Globes and orbits are within normal l imits. Paranasal sinuses and mastoid air cells are clear. CT CERVICAL SPINE INDICATION: Reason: fall pain / Spl. Instructions: / History: COMPARISON: None Available. Technique: 2.5 mm contiguous axial images were obtained from the skull base through the cervicothorac ic junction in both bone and soft tissue algorithm. Additional sagittal and coronal reconstructions were also performed. FINDINGS: Vertebral body height and alignment are maintained. Cervical lordosis is preserved. The l ateral masses of C1 are aligned upon C2. No fractures identified. The bony canal is patent throughout. Mild intervertebral disc height loss identified in the cervical spine likely degenerative changes.. The paraspinous soft tissues are unremarkable. Visualized intracranial contents are unremarkable. L adriana apices are clear. EXAM: CT FACIAL BONES WITHOUT CONTRAST Findings: Reason: fall pain / Spl. Instructions: / History: INDICATION: . COMPARISON: None TECHNIQUE: Noncontrast images of the facial bones are performed. Coronal and sagittal reformatted piotr ges are also presented for interpretation. FINDINGS: No fracture, dislocation or other acute bony abnormality is identified. There is no soft ti ssue abnormality or radiopaque foreign body. Small mucous retention cyst or polyp identified in the left maxillary sinus.. The globes and orbits are intact in CT appearance. There is no retrobulbar hematoma. IMPRESSION: 1. No acute intracranial findings. 2. No acute fracture of the cervical spine. 3. No acute facial bone fracture. Electronically signed by: Clem Castro MD (06/18/2021 6:20 PM) [id number]
--- NOTE | 2021-06-18 18:26 | RAD ---
INDICATION: Reason: fall pain / Spl. Instructions: / History: . COMPARISON: Plain film from May 14, [address] from May 08, 2021 TECHNIQUE: Axial CT images obtained through the lumbar spine. One or more of the following individualized dose reduction techniques were utilized for this examinat ion: 1. Automated exposure control; 2. Adjustment of the mA and/or kV according to patient size; 3 . Use of iterative reconstruction technique. FINDINGS: No evidence of dislocation. Degenerative changes the spine with osteophyte formation at the vertebral body endplates as well as s ome disc protrusions and facet hypertrophy. Mild loss of height of the inferior endplate of L4 vertebral body. T12 mild to moderate superior endplate compression deformity again seen with some sclerosis. Calcific atherosclerosis. Partial visualization of colonic diverticulosis. IMPRESSION: * Repeat demonstration of compression deformities of L4 and T12 without a new compression fracture s een Electronically signed by: Thom Laguerre MD (06/18/2021 6:23 PM) [id number]
[2021-06-18 18:29] LABS: BARBITURATES NEG (NEG); BENZODIAZEPINES NEG (NEG); CANNABINOIDS NEG (NEG); COCAINE NEG (NEG); METHADONE NEG (NEG); OPIATES POS (NEG); PHENCYCLIDINE NEG (NEG)
[2021-06-18 18:30] LABS: AMPHETAMINE/METHAMPHETAMINE NEG (NEG)
[2021-06-18 18:59] LABS: BILIRUBIN,URINE NEGATIVE (NEG); CLARITY,URINE CLEAR; COLOR,URINE YELLOW; NITRITE,URINE NEGATIVE (NEG); PROTEIN,URINE NEGATIVE (NEG-TRACE)
[2021-06-18 19:04] LABS: BACTERIA,URINE MODERATE /HPF (0-FEW)
[2021-06-18 19:07] LABS: RBC,URINE RARE /HPF (0-2); WBC,URINE RARE /HPF (0-4)
[2021-06-18] MEDS ORDERED: POTASSIUM CHLORIDE 20 MEQ TABLET.ER. PO ONE (20:00)
[2021-06-18 20:30] VITALS: BP 138/61
--- NOTE | 2021-06-18 20:38 | RAD ---
Examination: 2 views of the left hip, 3 views of the left ankle HISTORY: Fall, pain COMPARISON: None available FINDINGS: The left femoral head is within the acetabulum. Mild joint space loss left hip joint likely degenerat sabas changes. The ankle mortise appears intact. There is questionable oblique lucency identified in th e distal fibula just superior to the level of the ankle joint could be suspicious for nondisplaced fr acture and less likely a nutrient foramen. Correlate for point tenderness. IMPRESSION: 1. Questionable oblique lucency identified in the distal fibula just superior to the level of the an kle joint could be suspicious for nondisplaced fracture and less likely a nutrient foramen. Correlate for point tenderness. 2. Mild degenerative changes left hip joint. Electronically signed by: Clem Castro MD (06/18/2021 8:35 PM) [id number]
== END 2021-06-18 20:30 | disposition home or self-care (01) ==
LOC: ER 16:36
DX: S82.832A Other fracture of upper and lower end of left fibula, initial encounter for closed fracture (principal); S13.9XXA Sprain of joints and ligaments of unspecified parts of neck, initial encounter; S00.83XA Contusion of other part of head, initial encounter; S30.0XXA Contusion of lower back and pelvis, initial encounter; I48.91 Unspecified atrial fibrillation; Z79.01 Long term (current) use of anticoagulants; F41.9 Anxiety disorder, unspecified; F31.9 Bipolar disorder, unspecified; I10 Essential (primary) hypertension; I25.2 Old myocardial infarction; F20.9 Schizophrenia, unspecified; Z86.73 Personal history of transient ischemic attack (TIA), and cerebral infarction without residual deficits; Z95.1 Presence of aortocoronary bypass graft; Z95.0 Presence of cardiac pacemaker; W18.39XA Other fall on same level, initial encounter; Y93.01 Activity, walking, marching and hiking; Y92.89 Other specified places as the place of occurrence of the external cause; Y99.8 Other external cause status; Z88.0 Allergy status to penicillin; Z88.2 Allergy status to sulfonamides; Z88.5 Allergy status to narcotic agent; Z91.041 Radiographic dye allergy status; Z91.040 Latex allergy status; Y93.89 Activity, other specified
CPT/HCPCS: 36415; 70450; 70486; 72125; 72131; 73502; 73610; 80053; 80307; 81001; 82962; 83735; 83880; 84443; 84484; 85025; 85610; 87086; 93005; 96374; 99285; J3010

== ENCOUNTER → 2021-07-28 | Outpatient (CLI) | payer OTHER, MEDICAID ==
[~2021-07-28] MED LIST changes: +DICY20TA PO; -DICY20TA3 PO; -FLUO20CA20 PO; +FLUO20CA22 PO; +MONT-38 PO; -MONT10TA20 PO
--- NOTE | 2021-07-28 15:50 | KCIC ---
EXAM: DUAL ENERGY X-RAY ABSORPTIOMETRY (DEXA). HISTORY: Postmenopausal screening. FINDINGS: The lowest measured T-score is -2.3 in the lumbar spine, based on a bone mineral density of 0.793 g/cm^2. Refer to the worksheets for full detail. No comparison examinations are available. IMPRESSION: 1. Low bone mass. Bone mineral density yields a T-score between -1.0 and -2.5. Fracture risk is incre ased. 2. FRAX report: Not calculated. METHODOLOGY: Dual energy x-ray absorptiometry was performed to measure bone mineral density. The foll owing analysis is based on the 2019 Official Positions of the International Society for Clinical Dens itometry: Measurements of the hips and the average of L1-L4 are preferred. When the spine and/or hip cannot be feasibly measured or interpreted, or in the setting of hyperparathyroidism, distal radial bone minera l density may be measured. The lumbar spine T-score is based on the average bone mineral density of L1-L4. In the setting of art ifact or anatomic abnormality, some lumbar levels may be excluded, and the remaining levels used for calculation. A single lumbar level is not used for diagnosis, and if only a single level is available for assessment, another anatomic site will be used to assign a diagnosis. The hip T-score is based on the bone mineral density measurement of the femoral neck or total proxima l femur of either side, whichever is lowest. Bilateral mean values are not used for diagnosis. The forearm T-score is derived from 33% of the distal radius of the nondominant forearm. Electronically signed by: Jesusita De La Paz MD (07/28/2021 3:47 PM) [id number]
--- NOTE | 2021-07-28 19:11 | KCIC ---
Bilateral digital screening 2-D and 3-D (tomosynthesis) mammogram: Reason for examination: Routine screening. Comparison is made to previous mammogram dated 05/12/2018. Bilateral mammograms in CC and oblique projections were obtained with 2-D imaging and 3-D tomosynthes is imaging and reviewed on the workstation. Interpretation was made with the benefit of CAD. Findings: Breast density: Category C. The breasts are heterogeneously dense, which may obscure small masses. There are no suspicious masses, malignant appearing calcifications or architectural distortion. There are few benign-appearing punctate calcifications in the left subareolar region and in the left upper outer quadrant which are unchanged. Patient's pacemaker obscures a small portion of the left upper b reast posteriorly and inferior left axilla. There are very small oval circumscribed masses bilaterall y. Impression: No evidence of malignancy. ASSESSMENT: BI-RADS 2. Benign findings. Recommendations: Routine screening mammograms. This patient's information has been entered into a reminder system for the patient to be notified wit h the results of her examination and a target date for the next mammogram. Your patient's mammogram demonstrates that she has dense breast tissue (breast density category C or D), which could hide abnormalities, and if she has other risk factors for breast cancer that have bee n identified, she might benefit from supplemental screening tests that may be suggested by you as her ordering physician. Dense breast tissue, in and of itself, is a relatively common condition. Therefo re, this information is not provided to cause undue concern, but rather to raise your awareness and t o promote discussion with your patient regarding the presence of other risk factors, in addition to d ense breast tissue. Electronically signed by: Gaye Santiago MD (07/28/2021 7:08 PM) [email or web address]
== END ==
LOC: KCIC MAMMO 14:30
PROVIDERS: ATTEND Internal Medicine
DX: Z12.31 Encounter for screening mammogram for malignant neoplasm of breast (principal); Z78.0 Asymptomatic menopausal state
CPT/HCPCS: 77063; 77067; 77080

== ENCOUNTER → 2021-10-29 | Outpatient (CLI) | payer OTHER, MEDICAID ==
[~2021-10-29] MED LIST changes: -LURA40TA PO; +LURA40TA2 PO
--- NOTE | 2021-10-29 12:48 | RAD ---
EXAM: Right shoulder, 3 views; thoracic spine, 3 views; lumbar spine, 3 views. HISTORY: Pain. Injury. COMPARISON: None. FINDINGS: Right shoulder: 3 views of the right shoulder obtained. There is no acute fracture, dislocation or carlson bluxation. There is minimal degenerative spurring involving the glenoid and there is mild acromioclav icular joint spurring. There is a tiny calcification at the rotator cuff insertion. There are cardiac pacemaker leads and there is evidence of prior CABG. There are calcified granulomas. There is cardio megaly. Thoracic spine: 3 views of the thoracic spine are obtained. There are hypoplastic T12 ribs, a normal variant. There is a mild chronic compression fracture with vertebroplasty changes at T12. There are m oderate compression fractures at T9 and T10. These are chronic in appearance. There is multilevel end plate remodeling. Lumbar spine: 3 views of the lumbar spine are obtained. There is a chronic appearing inferior endplat e depression at L4. There is multilevel endplate remodeling and facet arthropathy. There is no listhe sis. There are cholecystectomy clips. There are calcifications overlying the right renal shadow which may be due to nephrolithiasis. There is levocurvature. IMPRESSION: 1. Chronic appearing compression fractures of T9 and T10 and chronic appearing inferior endplate depr ession at L4. There is also a chronic compression fracture with vertebroplasty changes at T12. 2. Multilevel degenerative change involving the thoracic and lumbar spine. 3. Mild right acromioclavicular and minimal right glenohumeral joint osteoarthritis. Electronically signed by: Jesusita De La Paz MD (10/29/2021 12:45 PM) [id number]
== END ==
LOC: RAD 11:49
PROVIDERS: ATTEND Internal Medicine
DX: S49.91XA Unspecified injury of right shoulder and upper arm, initial encounter (principal); M19.011 Primary osteoarthritis, right shoulder; I51.7 Cardiomegaly; J84.10 Pulmonary fibrosis, unspecified; M75.81 Other shoulder lesions, right shoulder; M47.814 Spondylosis without myelopathy or radiculopathy, thoracic region; M47.816 Spondylosis without myelopathy or radiculopathy, lumbar region; M48.8X6 Other specified spondylopathies, lumbar region; M48.54XA Collapsed vertebra, not elsewhere classified, thoracic region, initial encounter for fracture; M48.56XA Collapsed vertebra, not elsewhere classified, lumbar region, initial encounter for fracture; M43.8X6 Other specified deforming dorsopathies, lumbar region; Z90.49 Acquired absence of other specified parts of digestive tract; X58.XXXA Exposure to other specified factors, initial encounter; Y93.89 Activity, other specified; Y92.89 Other specified places as the place of occurrence of the external cause; Y99.8 Other external cause status
CPT/HCPCS: 72072; 72100; 73030

== ENCOUNTER 2021-11-03 21:53 | Emergency (ER) | payer OTHER, MEDICAID ==
[~2021-11-03] VITALS: Ht 154.9 cm; Wt 81.6 kg
--- NOTE | 2021-11-03 23:59 | RAD ---
XR CHEST 1V 11/03/2021 11:46 PM INDICATION: Chest pain COMPARISON: 05/15/2021 TECHNIQUE: Portable frontal view of the chest is provided. FINDINGS: The cardiomediastinal silhouette is similar in appearance. Sternotomy changes are present. Left chest wall cardiac device is in similar position. There is mild interstitial prominence which appears chronic. There are no significant pleural effusions. There is no pulmonary vascular congestion. No pneumothora x. No suspicious osseous abnormality. IMPRESSION: There is no acute cardiopulmonary process. Mild chronic interstitial prominence as may be seen with c hronic interstitial edema. Electronically signed by: Alexandra Rangel MD (11/03/2021 11:56 PM) [facility]
--- NOTE | 2021-11-04 00:35 | EKG ---
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
[2021-11-04 01:09] LABS: BASO % 1 % (0-3); EOS # 0.1 x10^3/uL (0.0-0.7); EOS % 2 % (0-3); HEMATOCRIT 38.6 % (36.0-47.0); HEMOGLOBIN 12.8 g/dL (12.0-15.5); LYMPH # 1.6 x10^3/uL (1.0-4.8); LYMPH % 27 % (24-48); MEAN CORPUSCULAR HEMOGLOBIN 28 pg (25-35); MEAN CORPUSCULAR HGB CONC 33 g/dL (31-37); MEAN CORPUSCULAR VOLUME 84 fL (79-100); MONO # 0.6 x10^3/uL (0.0-1.1); MONO % 10 % (0-9); NEUT # 3.5 x10^3/uL (1.8-7.7); NEUT % 61 % (31-73); PLATELET COUNT 203 x10^3/uL (140-400); RED BLOOD COUNT 4.59 x10^6/uL (3.50-5.40); RED CELL DISTRIBUTION WIDTH 15.2 % (11.5-14.5); WHITE BLOOD COUNT 5.8 x10^3/uL (4.0-11.0)
[2021-11-04 01:16] LABS: CALCIUM 8.4 mg/dL (8.5-10.1); CREATININE 0.7 mg/dL (0.6-1.0); GFR 85.1; POTASSIUM 3.7 mmol/L (3.5-5.1)
[2021-11-04 01:19] LABS: PROTHROMBIN TIME PATIENT 26.6 SEC (11.7-14.0)
[2021-11-04 01:21] LABS: ALBUMIN 3.1 g/dL (3.4-5.0); ALBUMIN/GLOBULIN RATIO 0.8 (1.0-1.7); MAGNESIUM 2.2 mg/dL (1.8-2.4); TOTAL BILIRUBIN 0.2 mg/dL (0.2-1.0); TOTAL PROTEIN 6.8 g/dL (6.4-8.2)
[2021-11-04] MEDS ORDERED: KETOROLAC 15 MG/ML VIAL. IVP ONE (03:00)
[2021-11-04] MEDS ORDERED: KETOROLAC 60 MG/2 ML VIAL. IM ONE (03:45)
[2021-11-04 04:36] LABS: BILIRUBIN,URINE NEGATIVE (NEG); CLARITY,URINE CLEAR; COLOR,URINE YELLOW; NITRITE,URINE NEGATIVE (NEG); PROTEIN,URINE NEGATIVE (NEG-TRACE)
[2021-11-04 04:42] LABS: AMPHETAMINE/METHAMPHETAMINE NEG (NEG); BARBITURATES NEG (NEG); BENZODIAZEPINES NEG (NEG); CANNABINOIDS NEG (NEG); COCAINE NEG (NEG); METHADONE NEG (NEG); OPIATES POS (NEG); PHENCYCLIDINE NEG (NEG)
[2021-11-04 04:44] LABS: BACTERIA,URINE FEW /HPF (0-FEW); RBC,URINE 0 /HPF (0-2)
--- NOTE | 2021-11-04 05:31 | PHYS DOC ---
Past Medical History Past Medical History: A-Fib, Anxiety, Bipolar, CVA, Hypertension, [place], Renal Disease, Schizophrenia, Other Additional Past Medical Histor: ENCEPHALOPATHY, GI BLEED, T12 FX Past Surgical History: Cervical Fusion, Cholecystectomy, , Hysterectomy, Pacemaker Additional Past Surgical Histo: AVR, defibrillator Smoking Status: Former Smoker Alcohol Use: None Drug Use: None General Adult EDM: Chief Complaint: CHEST PAIN HPI: HPI: 61 yo PMH, HTN, HLD, mechanical AV on coumadin, hypothyroidism, CVA and copd, presents to the ed with c/o sharp, nonradiating chest pain that lasted for thirty minutes, now stating her chest pain has resolved. C/o right flank pain and reports recent injury with compression fractures of her back. States she took a "pain pill" before coming to the ed and is requesting pain medication. Review of Systems: Review of Systems: Constitutional: Denies fever or chills. [] Eyes: Denies change in visual acuity. [] HENT: Denies nasal congestion or sore throat. [] Respiratory: Denies cough or shortness of breath. [] Cardiovascular: Denies syncope or edema. [] GI: Denies abdominal pain, nausea, vomiting, bloody stools or diarrhea. [] : Denies saddle anesthesia or incontinence Musculoskeletal: Denies flank pain or joint pain. [] Integument: Denies rash or diaphoresis Neurologic: Denies headache, focal weakness or sensory changes. [] Endocrine: Denies polyuria or polydipsia. [] Lymphatic: Denies swollen glands. [] Psychiatric: Denies depression or anxiety. [] Heart Score: C/O Chest Pain: Yes HEART Score for Chest Pain: HEART Score for Chest Pain Response (Comments) Value History Slighlty/Non-Suspicious 0 ECG Normal 0 Age >45 - < 65 1 Risk Factors >3 Risk Factors or Hx CAD 2 Troponin < Normal Limit 0 Total 3 Risk Factors: Risk Factors: DM, Current or recent (<one month) smoker, HTN, HLP, family history of CAD, obesity. Risk Scores: Score 0 - 3: 2.5% MACE over next 6 weeks - Discharge Home Score 4 - 6: 20.3% MACE over next 6 weeks - Admit for Clinical Observation Score 7 - 10: 72.7% MACE over next 6 weeks - Early Invasive Strategies Current Medications: Current Medications Medications (Trade) Dose Ordered Sig/Galilea Start Time Stop Time Status Last Admin Dose Admin Ketorolac Tromethamine (Toradol 15mg Vial) 15 mg 1X ONCE 11/04/21 03:00 11/04/21 03:01 Cancel Ketorolac Tromethamine (Toradol Im) 30 mg 1X ONCE 11/04/21 03:45 11/04/21 03:46 DC 11/04/21 04:14 30 MG Allergies: Allergies: Allergies Coded Allergies Type Severity Reaction Last Updated Verified Sulfa (Sulfonamide Antibiotics) Allergy Severe rash, tongue swelling 04/15/15 Yes Iodinated Contrast Media Allergy Intermediate rash 04/15/15 Yes Penicillins Allergy Intermediate Hives 04/15/15 Yes aspirin Allergy Intermediate Hives 04/15/15 Yes codeine Allergy Intermediate Hives; SEE COMMENT 06/08/15 Yes diphenhydramine HCl Allergy Intermediate rash 12/19/13 Yes latex Allergy Intermediate Rash 12/18/13 Yes Physical Exam: PE: Constitutional: Well developed, well nourished, no acute distress, non-toxic appearance. HENT: Normocephalic, atraumatic, Eyes: EOMI, conjunctiva normal, no discharge. Neck: Normal range of motion, supple, Cardiovascular: S1/2 present, regular rhythm Lungs & Thorax: Speaking in full sentences, bilateral equal chest rise, no tachypnea or increased work of breathing Abdomen: soft, no tenderness, Skin: Warm, dry, no erythema, no rash. [] Back: No tenderness, no CVA tenderness. [] Extremities: No tenderness, no cyanosis, no lower extremity edema Neurologic: Alert and oriented X 3, normal motor function, normal sensory function, no focal deficits noted. [] Psychologic: Affect normal, judgement normal, mood normal. [] Current Patient Data: Labs: Laboratory Tests Test 11/04/21 00:55 11/04/21 02:30 11/04/21 04:30 White Blood Count 5.8 x10^3/uL (4.0-11.0) Red Blood Count 4.59 x10^6/uL (3.50-5.40) Hemoglobin 12.8 g/dL (12.0-15.5) Hematocrit 38.6 % (36.0-47.0) Mean Corpuscular Volume 84 fL (79-100) Mean Corpuscular Hemoglobin 28 pg (25-35) Mean Corpuscular Hemoglobin Concent 33 g/dL (31-37) Red Cell Distribution Width 15.2 % (11.5-14.5) H Platelet Count 203 x10^3/uL (140-400) Neutrophils (%) (Auto) 61 % (31-73) Lymphocytes (%) (Auto) 27 % (24-48) Monocytes (%) (Auto) 10 % (0-9) H Eosinophils (%) (Auto) 2 % (0-3) Basophils (%) (Auto) 1 % (0-3) Neutrophils # (Auto) 3.5 x10^3/uL (1.8-7.7) Lymphocytes # (Auto) 1.6 x10^3/uL (1.0-4.8) Monocytes # (Auto) 0.6 x10^3/uL (0.0-1.1) Eosinophils # (Auto) 0.1 x10^3/uL (0.0-0.7) Basophils # (Auto) 0.0 x10^3/uL (0.0-0.2) Prothrombin Time 26.6 SEC (11.7-14.0) H Prothrombin Time INR 2.5 (0.8-1.1) H Activated Partial Thromboplast Time 59 SEC (24-38) H Sodium Level 144 mmol/L (136-145) Potassium Level 3.7 mmol/L (3.5-5.1) Chloride Level 102 mmol/L (98-107) Carbon Dioxide Level 34 mmol/L (21-32) H Anion Gap 8 (6-14) Blood Urea Nitrogen 29 mg/dL (7-20) H Creatinine 0.7 mg/dL (0.6-1.0) Estimated GFR (Cockcroft-Gault) 85.1 BUN/Creatinine Ratio 41 (6-20) H Glucose Level 109 mg/dL (70-99) H Calcium Level 8.4 mg/dL (8.5-10.1) L Magnesium Level 2.2 mg/dL (1.8-2.4) Total Bilirubin 0.2 mg/dL (0.2-1.0) Aspartate Amino Transferase (AST) 6 U/L (15-37) L Alanine Aminotransferase (ALT) 16 U/L (14-59) Alkaline Phosphatase 99 U/L (46-116) Troponin I High Sensitivity 8 ng/L (4-50) 8 ng/L (4-50) IZ-Osb-W-Type Natriuretic Peptide 308 pg/mL (0-124) H Total Protein 6.8 g/dL (6.4-8.2) Albumin 3.1 g/dL (3.4-5.0) L Albumin/Globulin Ratio 0.8 (1.0-1.7) L Urine Collection Type Unknown Urine Color Yellow Urine Clarity Clear Urine pH 7.0 (<5.0-8.0) Urine Specific [place] 1.025 (1.000-1.030) Urine Protein Negative mg/dL (NEG-TRACE) Urine Glucose (UA) Negative mg/dL (NEG) Urine Ketones (Stick) Negative mg/dL (NEG) Urine Blood Negative (NEG) Urine Nitrite Negative (NEG) Urine Bilirubin Negative (NEG) Urine Urobilinogen Dipstick 1.0 mg/dL (0.2 mg/dL) Urine Leukocyte Esterase Small (NEG) Urine RBC 0 /HPF (0-2) Urine WBC 1-4 /HPF (0-4) Urine Squamous Epithelial Cells Mod /LPF Urine Bacteria Few /HPF (0-FEW) Urine Mucus Slight /LPF Urine Opiates Screen Pos (NEG) Urine Methadone Screen Neg (NEG) Urine Barbiturates Neg (NEG) Urine Phencyclidine Screen Neg (NEG) Urine Amphetamine/Methamphetamine Neg (NEG) Urine Benzodiazepines Screen Neg (NEG) Urine Cocaine Screen Neg (NEG) Urine Cannabinoids Screen Neg (NEG) Urine Ethyl Alcohol Neg (NEG) Laboratory Tests 11/04/21 00:55 Laboratory Tests 11/04/21 00:55 Vital Signs: Vital Signs Date Time Temp Pulse Resp B/P (MAP) Pulse Ox O2 Delivery O2 Flow Rate FiO2 11/04/21 03:44 60 26 155/68 (97) 94 Room Air 11/03/21 21:53 98.0 98.0 EKG: EKG: Sinus rhythm 64 bpm, no axis deviation, normal intervals, no T wave inversion, no ST elevation or ST depression Radiology/Procedures: Radiology/Procedures: IMAGING REPORT Signed PATIENT: RHETT HERNANDEZ ACCOUNT: [id number] : 1960 LOCATION: ER AGE: 61 SEX: F EXAM STATUS: REG ER ORD. PHYSICIAN: ELSIE ARANDA DO REASON: jose miguel PROCEDURE: PORTABLE CHEST 1V XR CHEST 1V 11/03/2021 11:46 PM INDICATION: Chest pain COMPARISON: 05/15/2021 TECHNIQUE: Portable frontal view of the chest is provided. FINDINGS: The cardiomediastinal silhouette is similar in appearance. Sternotomy changes are present. Left chest wall cardiac device is in similar position. There is mild interstitial prominence which appears chronic. There are no significant pleural effusions. There is no pulmonary vascular congestion. No pneumothorax. No suspicious osseous abnormality. IMPRESSION: There is no acute cardiopulmonary process. Mild chronic interstitial prominence as may be seen with chronic interstitial edema. Electronically signed by: Ferny Goldman MD (11/03/2021 11:56 PM) [facility] DICTATED and SIGNED BY: FERNY GOLDMAN MD DATE: 11/03/21 [id number] 0 Course & Med Decision Making: Course & Med Decision Making Pertinent Labs and Imaging studies reviewed. (See chart for details) [] Dragon Disclaimer: Dragon Disclaimer: This electronic medical record was generated, in whole or in part, using a voice recognition dictation system. Departure Departure Impression: Primary Impression: Chronic pain Additional Impressions: Chest pain Compression fracture of thoracic vertebra Disposition: HOME / SELF CARE / HOMELESS Condition: STABLE Referrals: NICOLE SMITH MD (PCP) Follow-up with your primary care physician in 24 to 48 hours OR FOLLOW UP WITH FAMILY MEDICINE: [address] [facility], [facility] [address] [place] [address] Patient Instructions: Back, Compression Fracture, Chest Pain (Nonspecific), Chronic Pain Additional Instructions: EMERGENCY DEPARTMENT GENERAL DISCHARGE INSTRUCTIONS Thank you for coming to [facility] Emergency Department (ED) today and trusting us with you care. We trust that you had a positive experience in our Emergency Department. If you wish to speak to the department management, you may call the Director at [phone]. YOUR FOLLOW UP INSTRUCTIONS ARE FOLLOWS: 1. Do you have a private Doctor? If you do not have a private doctor, please ask for a resource list of physicians or clinics that may be able to assist you with foll ow up care. 2. The Emergency Physicain has interpreted your x-rays. The X-Ray specialist will also review them. If there is a change in the findings, you will be notified in 48 hours when at all possible. 3. A lab test or culture has been done, your results will be reviewed and you will be notified if you need a change in treatment. ADDITIONAL INSTRUCTIONS AND INFORMATION: 1. Your care today has been supervised by a physician who is specially trained in emergency care. Many problems require more than one evaluation for a complete diagnosis and treatment. We recommend that you schedule your follow up appointment as recommended to ensure complete treatment of you illness or injury. If you are unable to obtain follow up care and continue to have a problem, or if your condition worsens, we recommend that you return to the ED. 2. We are not able to safely determine your condition over the phone nor are we able to give sound medical advice over the phone. For these safety reasons, if you call for medical advice we will ask you to come to the ED for further evaluation. 3. If you have any questions regarding these discharge instructions please call the ED at [phone]. SAFETY INFORMATION: In the interest of safety, wellness, and injury prevention; we encourage you to wear your sealbelt, if you smoke; quite smoking, and we encourage family to use a pr otective helmet for bicycling and other sporting events that present an increased risk for head injury. IF YOUR SYMPTOMS WORSEN OR NEW SYMPTOMS DEVELOP, OR YOU HAVE CONCERNS ABOUT YOUR CONDITION; OR IF YOUR CONDITION WORSENS WHILE YOU ARE WAITING FOR YOUR FOLLOW UP APPOINTMENT; EITHER CONTACT YOUR PRIMARY CARE DOCTOR, THE PHYSICIAN WHOSE NAME AND NUMBER YOU WERE GIVEN, OR RETURN TO THE ED IMMEDIATELY. ELSIE ARANDA DO Nov 04, 2021 05:30
[2021-11-04 06:10] VITALS: BP 153/96
== END 2021-11-04 06:25 | disposition home or self-care (01) ==
LOC: ER 21:53
DX: M48.54XA Collapsed vertebra, not elsewhere classified, thoracic region, initial encounter for fracture (principal); R07.89 Other chest pain; G89.29 Other chronic pain; I48.91 Unspecified atrial fibrillation; F31.9 Bipolar disorder, unspecified; I10 Essential (primary) hypertension; I25.2 Old myocardial infarction; F20.9 Schizophrenia, unspecified; Z86.73 Personal history of transient ischemic attack (TIA), and cerebral infarction without residual deficits; Z90.49 Acquired absence of other specified parts of digestive tract; Z87.891 Personal history of nicotine dependence; Z95.810 Presence of automatic (implantable) cardiac defibrillator; Z88.0 Allergy status to penicillin; Z88.2 Allergy status to sulfonamides; Z91.041 Radiographic dye allergy status; Z88.5 Allergy status to narcotic agent; Z88.6 Allergy status to analgesic agent; Z91.040 Latex allergy status; X58.XXXA Exposure to other specified factors, initial encounter; Y93.89 Activity, other specified; Y92.89 Other specified places as the place of occurrence of the external cause; Y99.8 Other external cause status
CPT/HCPCS: 36415; 71045; 80053; 80307; 81001; 83735; 83880; 84484; 85025; 85610; 85730; 87086; 93005; 96372; 99285; J1885

== ENCOUNTER 2021-12-28 13:29 | Inpatient (IN) | payer OTHER, MEDICAID ==
[~2021-12-28] VITALS: Ht 154.9 cm; Wt 86.9 kg
[2021-12-28] MEDS ORDERED: BENZOCAINE ONE 20% MUCOSAL SPRAY. MM (13:45)
[2021-12-28] MEDS ORDERED: IV NORMAL SALINE 500ML BAG 500 ML IV SCH (13:45)
[2021-12-28] MEDS ORDERED: methylPREDNISolone SOD SUCC PF 40 MG/ML VIAL. IV ONE (13:45)
[2021-12-28] MEDS ORDERED: diphenhydrAMINE 50 MG/ML VIAL IVP ONE (13:45)
[2021-12-28 13:52] LABS: BASO % 0 % (0-3); EOS # 0.1 x10^3/uL (0.0-0.7); EOS % 0 % (0-3); HEMATOCRIT 47.8 % (36.0-47.0); HEMOGLOBIN 15.9 g/dL (12.0-15.5); LYMPH # 0.7 x10^3/uL (1.0-4.8); LYMPH % 6 % (24-48); MEAN CORPUSCULAR HEMOGLOBIN 28 pg (25-35); MEAN CORPUSCULAR HGB CONC 33 g/dL (31-37); MEAN CORPUSCULAR VOLUME 85 fL (79-100); MONO # 0.6 x10^3/uL (0.0-1.1); MONO % 5 % (0-9); NEUT # 10.7 x10^3/uL (1.8-7.7); NEUT % 89 % (31-73); PLATELET COUNT 204 x10^3/uL (140-400); RED BLOOD COUNT 5.64 x10^6/uL (3.50-5.40); RED CELL DISTRIBUTION WIDTH 14.6 % (11.5-14.5); WHITE BLOOD COUNT 12.1 x10^3/uL (4.0-11.0)
[2021-12-28 13:57] LABS: CALCIUM 9.3 mg/dL (8.5-10.1); CREATININE 0.7 mg/dL (0.6-1.0); GFR 85.1; POTASSIUM 4.2 mmol/L (3.5-5.1)
[2021-12-28 14:00] LABS: PROTHROMBIN TIME PATIENT 13.1 SEC (11.7-14.0)
[2021-12-28] MEDS ORDERED: PANTOPRAZOLE IV PUSH 40 MG VIAL. IVP ONE (14:00)
[2021-12-28 14:02] LABS: ALBUMIN 3.7 g/dL (3.4-5.0); TOTAL BILIRUBIN 0.5 mg/dL (0.2-1.0); TOTAL PROTEIN 7.4 g/dL (6.4-8.2)
[2021-12-28] MEDS ORDERED: CONTRAST GIVEN. MC PRN (14:45)
[2021-12-28] MEDS ORDERED: IOHEXOL 300 MG/ML 100ML VIAL. IV ONE (14:45)
[2021-12-28] MEDS ORDERED: MORPHINE SULFATE 4 MG/ML INJ. IVP ONE (15:00)
--- NOTE | 2021-12-28 15:04 | RAD ---
EXAM: CT Abdomen and Pelvis with IV contrast CLINICAL HISTORY: Reason: GI bleed / Spl. Instructions: OMNI 300 INJ. 75 MLS / History: . COMPARISON: CT abdomen pelvis from 03/09/2021 TECHNIQUE: Helical CT of the abdomen and pelvis was performed following the administration of intrave nous contrast. Axial, coronal and sagittal reformatted images were generated. PQRS compliance statement - One or more of the following individualized dose reduction techniques wer e utilized for this study: 1. Automated exposure control 2. Adjustment of the mA and/or kV according to patient size 3. Use of iterative reconstruction technique FINDINGS: Lower Chest: The lung bases are clear. Heart is mildly enlarged. Partially imaged pacer leads. No pericardial effu marixa. Abdomen and Pelvis: Liver is mildly enlarged with no focal hepatic abnormality. The spleen, adrenals, and pancreas are un remarkable. Gallbladder surgically absent. No biliary ductal dilation. Symmetric nephrograms. No obstructing nephrolithiasis or hydroureteronephrosis. Stomach is moderately distended with likely ingested material. No evidence of bowel obstruction or fo tigist inflammation. No evidence of intraluminal hemorrhage. There is nonspecific hyperattenuating mater ial within a short segment of small bowel with attenuation measuring much greater than blood products . No evidence of free intra-abdominal air or free fluid. No pathologically enlarged abdominal or pelv ic adenopathy. Vasculature is normal in course and caliber with scattered aortobiiliac atheroscleroti c disease. Bladder is decompressed precluding complete evaluation. Uterus is absent. No suspicious adnexal masses. Small fat-containing ventral hernias are reidentified . Bones: No acute osseous abnormality. Similar multilevel degenerative changes of the spine. Vertebroplasty ch anges of T12. IMPRESSION: 1. No acute abnormality of the abdomen or pelvis, specifically no findings of active GI bleed. 2. Chronic/incidental findings appear similar from multiple priors. Electronically signed by: Micky Edwards DO (12/28/2021 3:01 PM) [id number]
[2021-12-28 15:47] LABS: BACTERIA,URINE 0 /HPF (0-FEW); RBC,URINE 0 /HPF (0-2); WBC,URINE OCC /HPF (0-4)
[2021-12-28] MEDS ORDERED: PANTOPRAZOLE SODIUM IV DRIP 80 MG in IV NORMAL SALINE 100ML 100 ML IV ONE (16:00)
--- NOTE | 2021-12-28 16:14 | PHYS DOC ---
Past Medical History Past Medical History: A-Fib, Anxiety, Bipolar, CVA, Hypertension, [place], Renal Disease, Schizophrenia, Other Additional Past Medical Histor: ENCEPHALOPATHY, GI BLEED, T12 FX Past Surgical History: Other Additional Past Surgical Histo: HEART VALVE, PACEMAKER Smoking Status: Former Smoker Alcohol Use: None Drug Use: None General Adult EDM: Chief Complaint: GI PROBLEM HPI: HPI: Patient is a 61 year old female who presents with past medical history of peptic ulcer, presents with upper GI bleed. Patient stated that she had 3 large bloody emesis this morning. Last one was about 30 minutes prior to presentation. Patient stated that she filled up a basin with her emesis. Patient is on warfarin due to status post mechanical valve replacement of the heart. Patient stated that last week her INR was normal which her goal is 2.5-3.5. Patient states that she took her warfarin as of yesterday. She did not take her warfarin today because she felt she would throw it up. She comes in with abdominal pain and diarrhea. Review of Systems: Review of Systems: Constitutional: Denies fever or chills. [] Eyes: Denies change in visual acuity. [] HENT: Denies nasal congestion or sore throat. [] Respiratory: Denies cough or shortness of breath. [] Cardiovascular: Denies chest pain or edema. [] GI: Positive abdominal pain, nausea, vomiting, no bloody stools positive diar mark. [] : Denies dysuria. [] Musculoskeletal: Denies back pain or joint pain. [] Integument: Denies rash. [] Neurologic: Denies headache, focal weakness or sensory changes. [] Endocrine: Denies polyuria or polydipsia. [] Lymphatic: Denies swollen glands. [] Psychiatric: Denies depression or anxiety. [] Heart Score: C/O Chest Pain: No Risk Factors: Risk Factors: DM, Current or recent (<one month) smoker, HTN, HLP, family history of CAD, obesity. Risk Scores: Score 0 - 3: 2.5% MACE over next 6 weeks - Discharge Home Score 4 - 6: 20.3% MACE over next 6 weeks - Admit for Clinical Observation Score 7 - 10: 72.7% MACE over next 6 weeks - Early Invasive Strategies Current Medications: Current Medications Medications (Trade) Dose Ordered Sig/Galilea Start Time Stop Time Status Last Admin Dose Admin Benzocaine (Hurricaine One) 1 spray 1X ONCE 12/28/21 13:45 12/28/21 13:46 DC 12/28/21 13:58 1 SPRAY Diphenhydramine HCl (Benadryl) 50 mg 1X ONCE 12/28/21 13:45 12/28/21 13:46 DC 12/28/21 13:57 50 MG Info (CONTRAST GIVEN -- Rx MONITORING) 1 each PRN DAILY PRN 12/28/21 14:45 12/30/21 14:44 Iohexol (Omnipaque 300 Mg/ml) 75 ml 1X ONCE 12/28/21 14:45 12/28/21 14:46 DC 12/28/21 15:02 75 ML Methylprednisolone Sodium Succinate (SOLU-Medrol 40MG VIAL) 40 mg 1X ONCE 12/28/21 13:45 12/28/21 13:46 DC 12/28/21 13:57 40 MG Morphine Sulfate (Morphine Sulfate) 4 mg 1X ONCE 12/28/21 15:00 12/28/21 15:01 DC 12/28/21 15:26 4 MG Pantoprazole Sodium (PROTONIX VIAL for IV PUSH) 40 mg 1X ONCE 12/28/21 14:00 12/28/21 14:01 DC 12/28/21 13:58 40 MG Pantoprazole Sodium 80 mg/ Sodium Chloride 100 ml @ 10 mls/hr 1X ONCE 12/28/21 16:00 12/29/21 01:59 Sodium Chloride 500 ml @ 500 mls/hr Q1H 12/28/21 13:45 12/28/21 13:58 DC 12/28/21 13:58 500 MLS/HR Allergies: Allergies: Allergies Coded Allergies Type Severity Reaction Last Updated Verified Sulfa (Sulfonamide Antibiotics) Allergy Severe rash, tongue swelling 04/15/15 Yes Iodinated Contrast Media Allergy Intermediate rash 04/15/15 Yes Penicillins Allergy Intermediate Hives 04/15/15 Yes aspirin Allergy Intermediate Hives 04/15/15 Yes codeine Allergy Intermediate Hives; SEE COMMENT 06/08/15 Yes diphenhydramine HCl Allergy Intermediate rash 12/19/13 Yes latex Allergy Intermediate Rash 12/18/13 Yes Physical Exam: PE: Constitutional: Well developed, well nourished, no acute distress, non-toxic appearance. [] HENT: Normocephalic, atraumatic, bilateral external ears normal, oropharynx moist, no oral exudates, nose normal. [] Eyes: PERRLA, EOMI, conjunctiva normal, no discharge. [] Neck: Normal range of motion, no tenderness, supple, no stridor. [] Cardiovascular:Heart rate regular rhythm, no murmur [] Lungs & Thorax: Bilateral breath sounds clear to auscultation [] Abdomen: Bowel sounds normal, soft, + generalized tenderness, no masses, no pulsatile masses. [] Skin: Warm, dry, no erythema, no rash. [] Back: No tenderness, no CVA tenderness. [] Extremities: No tenderness, no cyanosis, no clubbing, ROM intact, no edema. [] Neurologic: Alert and oriented X 3, normal motor function, normal sensory function, no focal deficits noted. [] Psychologic: Affect normal, judgement normal, mood normal. [] Current Patient Data: Labs: Laboratory Tests Test 12/28/21 13:37 12/28/21 15:00 12/28/21 15:29 White Blood Count 12.1 x10^3/uL (4.0-11.0) H Red Blood Count 5.64 x10^6/uL (3.50-5.40) H Hemoglobin 15.9 g/dL (12.0-15.5) H Hematocrit 47.8 % (36.0-47.0) H Mean Corpuscular Volume 85 fL (79-100) Mean Corpuscular Hemoglobin 28 pg (25-35) Mean Corpuscular Hemoglobin Concent 33 g/dL (31-37) Red Cell Distribution Width 14.6 % (11.5-14.5) H Platelet Count 204 x10^3/uL (140-400) Neutrophils (%) (Auto) 89 % (31-73) H Lymphocytes (%) (Auto) 6 % (24-48) L Monocytes (%) (Auto) 5 % (0-9) Eosinophils (%) (Auto) 0 % (0-3) Basophils (%) (Auto) 0 % (0-3) Neutrophils # (Auto) 10.7 x10^3/uL (1.8-7.7) H Lymphocytes # (Auto) 0.7 x10^3/uL (1.0-4.8) L Monocytes # (Auto) 0.6 x10^3/uL (0.0-1.1) Eosinophils # (Auto) 0.1 x10^3/uL (0.0-0.7) Basophils # (Auto) 0.0 x10^3/uL (0.0-0.2) Prothrombin Time 13.1 SEC (11.7-14.0) Prothrombin Time INR 1.0 (0.8-1.1) Activated Partial Thromboplast Time 24 SEC (24-38) Sodium Level 143 mmol/L (136-145) Potassium Level 4.2 mmol/L (3.5-5.1) Chloride Level 105 mmol/L (98-107) Carbon Dioxide Level 27 mmol/L (21-32) Anion Gap 11 (6-14) Blood Urea Nitrogen 30 mg/dL (7-20) H Creatinine 0.7 mg/dL (0.6-1.0) Estimated GFR (Cockcroft-Gault) 85.1 BUN/Creatinine Ratio 43 (6-20) H Glucose Level 105 mg/dL (70-99) H Calcium Level 9.3 mg/dL (8.5-10.1) Total Bilirubin 0.5 mg/dL (0.2-1.0) Aspartate Amino Transferase (AST) 23 U/L (15-37) Alanine Aminotransferase (ALT) 33 U/L (14-59) Alkaline Phosphatase 96 U/L (46-116) Troponin I High Sensitivity 8 ng/L (4-50) Total Protein 7.4 g/dL (6.4-8.2) Albumin 3.7 g/dL (3.4-5.0) Albumin/Globulin Ratio 1.0 (1.0-1.7) Lactic Acid Level 1.6 mmol/L (0.4-2.0) Urine Collection Type Unknown Urine Color (Auto) Yellow Urine Turbidity Clear Urine pH (Auto) 6.0 (<5.0-8.0) Urine Specific [place] 1.032 (1.000-1.030) Urine Protein (Auto) 30 mg/dL (Negative) Urine Glucose (Auto)(UA) Negative mg/dL (Negative) Urine Ketones (Auto) Negative mg/dL (Negative) Urine Blood (Auto) Negative (Negative) Urine Nitrite (Auto) Negative (Negative) Urine Bilirubin (Auto) Negative (Negative) Urine Urobilinogen (Auto) Normal mg/dL (Normal) Urine Leukocyte Esterase (Auto) Negative (Negative) Urine RBC 0 /HPF (0-2) Urine WBC Occ /HPF (0-4) Urine Squamous Epithelial Cells Mod /LPF Urine Bacteria 0 /HPF (0-FEW) Urine Mucus Mod /LPF Laboratory Tests 12/28/21 13:37 Laboratory Tests 12/28/21 13:37 Vital Signs: Vital Signs Date Time Temp Pulse Resp B/P (MAP) Pulse Ox O2 Delivery O2 Flow Rate FiO2 12/28/21 15:34 88 20 136/78 (97) 94 Room Air 12/28/21 13:39 98.0 98.0 EKG: EKG: Sinus rhythm Radiology/Procedures: Radiology/Procedures: No acute abnormality seen on CT abdomen pelvis with contrast Impression: 61-year-old female with upper GI bleed, subtherapeutic INR, lightheadedness, abdominal pain. Course & Med Decision Making: Course & Med Decision Making Pertinent Labs and Imaging studies reviewed. (See chart for details) 61-year-old female presented with abdominal pain and upper GI bleed. She was given 40 mg IV push of Protonix. She was given morphine for pain control. She stated that she only tolerates morphine as a pain control. CT scan was performed, see results above. Since there was a large amount of fluid in her stomach, NG tube was placed. [place] frothy fluid was suctioned from the stomach, about 500 cc. 500 cc bolus was given to patient. Hemoglobin was 15.9. Vital signs were stable. GI on-call, Dr Scott, was contacted regarding this patient, who recommended inpatient stay with PPI drip with possible scope tomorrow. Spoke with Dr Smith who admits the patient. Dragon Disclaimer: Dragon Disclaimer: This electronic medical record was generated, in whole or in part, using a voice recognition dictation system. Departure Departure Impression: Primary Impression: GI bleed Additional Impressions: S/P AVR (aortic valve replacement) Abdominal pain Disposition: ADMITTED INPATIENT Condition: STABLE Referrals: NICOLE SMITH MD (PCP) SAMANTHA OLIVA MD Dec 28, 2021 16:14
[2021-12-28] MEDS ORDERED: ONDANSETRON PF 4 MG/2 ML VIAL. IVP PRN (16:45)
[2021-12-28] MEDS: MORPHINE SULFATE 2 MG/ML INJ. IVP PRN ×2 (18:27→22:23)
--- NOTE | 2021-12-28 20:00 | NUR ---
Patient, Dina Sheppard, admitted to room 510, plan of care discussed, patient info booklet given, belongings inventoried, declines to have security lock up her purse, monitoring, call light given, reports to know how to use, and to call to use bathroom, as per fall contract.
[2021-12-28 20:17] VITALS: BP 118/65
--- NOTE | 2021-12-28 22:30 | NUR ---
Attempted to start second iv site, as patient has valproic acid, protonix gtt, and fluids ordered, unable to obtain the second iv, to request supervisor riveting to attempt a start.
[2021-12-28 23:12] VITALS: BP 122/62
--- NOTE | 2021-12-28 23:15 | NUR ---
Fabrice, fitting room supervisor in to attempt iv start, unable to obtain, this fha underwriter notified to request ICU nurse to attempt,
--- NOTE | 2021-12-28 23:45 | NUR ---
The ICU unit called, requesting an iv start, nurse to check with charge nurse.
--- NOTE | 2021-12-29 00:15 | NUR ---
A call back from ICU staff, reporting that an ED nurse will be to unit to start iv. Monitoring,
[2021-12-29] MEDS: VALPROIC ACID (AS SODIUM SALT) 500 MG in IV DEXTROSE 5% 50 ML IV SCH ×3 (00:20→21:20)
--- NOTE | 2021-12-29 01:30 | NUR ---
Fabrice notified of ED to start iv, he said he will check on situation (?). patient has pulled out her existing iv, pressure applied, gauze and tape placed.
[2021-12-29] MEDS ORDERED: METO50TA6 PO (02:35)
[2021-12-29] MEDS ORDERED: OLAN10TA69 PO (02:35)
[2021-12-29] MEDS ORDERED: QUET400T52 PO (02:35)
[2021-12-29] MEDS ORDERED: SUCR1TAB PO (02:35)
[2021-12-29] MEDS ORDERED: PREG50CA91 PO (02:35)
[2021-12-29] MEDS ORDERED: TRAZ-118 PO (02:35)
[2021-12-29] MEDS ORDERED: QUET25TA5 PO (02:35)
[2021-12-29] MEDS ORDERED: BENZ1TAB5 PO (02:35)
[2021-12-29] MEDS ORDERED: FURO40TA4 PO (02:35)
[2021-12-29] MEDS ORDERED: LISI-130 PO (02:35)
[2021-12-29] MEDS ORDERED: MIRT-8 PO (02:35)
[2021-12-29] MEDS ORDERED: FLUO20CA22 PO (02:35)
[2021-12-29] MEDS: IV NORMAL SALINE 1000ML BAG 1,000 ML IV SCH ×3 (02:42→18:30)
[2021-12-29] MEDS: MORPHINE SULFATE 2 MG/ML INJ. IVP PRN ×3 (02:43→10:02)
[2021-12-29 03:47] VITALS: BP 128/57
[2021-12-29] MEDS: PANTOPRAZOLE SODIUM IV DRIP 80 MG in IV NORMAL SALINE 100ML 100 ML IV SCH ×2 (05:25→16:58)
[2021-12-29 06:53] LABS: BASO % 1 % (0-3); EOS % 0 % (0-3); HEMOGLOBIN 13.5 g/dL (12.0-15.5); LYMPH # 0.7 x10^3/uL (1.0-4.8); LYMPH % 10 % (24-48); MEAN CORPUSCULAR HEMOGLOBIN 29 pg (25-35); MEAN CORPUSCULAR HGB CONC 34 g/dL (31-37); MEAN CORPUSCULAR VOLUME 85 fL (79-100); MONO # 0.6 x10^3/uL (0.0-1.1); MONO % 8 % (0-9); NEUT % 81 % (31-73); PLATELET COUNT 134 x10^3/uL (140-400); RED BLOOD COUNT 4.73 x10^6/uL (3.50-5.40); RED CELL DISTRIBUTION WIDTH 14.8 % (11.5-14.5); WHITE BLOOD COUNT 7.4 x10^3/uL (4.0-11.0)
[2021-12-29 07:00] VITALS: BP 107/49
[2021-12-29 07:02] LABS: PROTHROMBIN TIME PATIENT 13.4 SEC (11.7-14.0)
[2021-12-29 07:19] LABS: CALCIUM 8.3 mg/dL (8.5-10.1); CREATININE 0.7 mg/dL (0.6-1.0); GFR 85.1; POTASSIUM 3.6 mmol/L (3.5-5.1)
--- NOTE | 2021-12-29 09:40 | PDOC ---
Provider Note Date of Service: DATE: 12/29/21 TIME: 09:40 Provider Note Pt seen.H&P dictated.#[id number]. Justifications for Admission Other Justification NICOLE SMITH MD Dec 29, 2021 09:40
--- NOTE | 2021-12-29 10:07 | PDOC2 ---
GI CONSULT Date of Service: DATE: 12/29/21 TIME: 10:07 Reason For Consult: UGI bleed HPI: HPI: 61 y/o female who we've seen many times for left-sided abdominal pain, vomiting, and diarrhea. This time, to ER after vomiting red blood at home several times. Also reports diarrhea and abdominal pain. Denies precipitating events. Limited information from pt - she is resting with a towel over her eyes and not feeling well. Per nurse, no recurrent bleeding here - reports of "pink" output from NGT (which was removed). Denies dysphagia, constipation, hematochezia, melena, and weight loss. H/o GERD and gastroparesis (GES w/ 22% retention at 4 hours in 2018). Numerous EGDs and colonoscopies in the past - both normal except diverticulosis in 04/2018. H/o ischemic colitis. S/p cholecystectomy. Takes Protonix and Reglan at home - can't clarify dosing right now. From past encounters, also uses Zofran, Pepto, and hyoscyamine. Additionally has used Colestid for diarrhea in the past. On Warfarin (currently held). 12 CTs of A/P (also one including chest) since 2013. PMH: PMH: A Fib, CAD w/ stents, CHF, VT, HTN, HLD, asthma, COPD, CVA, seizures, migraines, conversion disorder, anxiety, depression, bipolar, schizophrenia, narcolepsy, OA, SDH cholecystectomy, hysterectomy, mechanical aortic valve, pacemaker, cardiac cath, vertebroplasty FH: Family History: No pertinent hx Social History: Smoke: No ALCOHOL: none Drugs: None ROS: Limited history - see HPI. Vitals: Vitals: Vital Signs Date Time Temp Pulse Resp B/P (MAP) Pulse Ox O2 Delivery O2 Flow Rate FiO2 12/29/21 06:01 18 Room Air 12/29/21 03:47 99.6 70 128/57 (80) 93 99.6 Labs: Labs: Laboratory Tests Test 12/28/21 13:37 12/28/21 15:00 12/28/21 15:29 12/29/21 06:41 White Blood Count 12.1 x10^3/uL (4.0-11.0) 7.4 x10^3/uL (4.0-11.0) Red Blood Count 5.64 x10^6/uL (3.50-5.40) 4.73 x10^6/uL (3.50-5.40) Hemoglobin 15.9 g/dL (12.0-15.5) 13.5 g/dL (12.0-15.5) Hematocrit 47.8 % (36.0-47.0) 40.0 % (36.0-47.0) Mean Corpuscular Volume 85 fL (79-100) 85 fL (79-100) Mean Corpuscular Hemoglobin 28 pg (25-35) 29 pg (25-35) Mean Corpuscular Hemoglobin Concent 33 g/dL (31-37) 34 g/dL (31-37) Red Cell Distribution Width 14.6 % (11.5-14.5) 14.8 % (11.5-14.5) Platelet Count 204 x10^3/uL (140-400) 134 x10^3/uL (140-400) Neutrophils (%) (Auto) 89 % (31-73) 81 % (31-73) Lymphocytes (%) (Auto) 6 % (24-48) 10 % (24-48) Monocytes (%) (Auto) 5 % (0-9) 8 % (0-9) Eosinophils (%) (Auto) 0 % (0-3) 0 % (0-3) Basophils (%) (Auto) 0 % (0-3) 1 % (0-3) Neutrophils # (Auto) 10.7 x10^3/uL (1.8-7.7) 6.0 x10^3/uL (1.8-7.7) Lymphocytes # (Auto) 0.7 x10^3/uL (1.0-4.8) 0.7 x10^3/uL (1.0-4.8) Monocytes # (Auto) 0.6 x10^3/uL (0.0-1.1) 0.6 x10^3/uL (0.0-1.1) Eosinophils # (Auto) 0.1 x10^3/uL (0.0-0.7) 0.0 x10^3/uL (0.0-0.7) Basophils # (Auto) 0.0 x10^3/uL (0.0-0.2) 0.0 x10^3/uL (0.0-0.2) Prothrombin Time 13.1 SEC (11.7-14.0) 13.4 SEC (11.7-14.0) Prothromb Time International Ratio 1.0 (0.8-1.1) 1.1 (0.8-1.1) Activated Partial Thromboplast Time 24 SEC (24-38) Sodium Level 143 mmol/L (136-145) 142 mmol/L (136-145) Potassium Level 4.2 mmol/L (3.5-5.1) 3.6 mmol/L (3.5-5.1) Chloride Level 105 mmol/L (98-107) 106 mmol/L (98-107) Carbon Dioxide Level 27 mmol/L (21-32) 26 mmol/L (21-32) Anion Gap 11 (6-14) 10 (6-14) Blood Urea Nitrogen 30 mg/dL (7-20) 26 mg/dL (7-20) Creatinine 0.7 mg/dL (0.6-1.0) 0.7 mg/dL (0.6-1.0) Estimated GFR (Cockcroft-Gault) 85.1 85.1 BUN/Creatinine Ratio 43 (6-20) Glucose Level 105 mg/dL (70-99) 100 mg/dL (70-99) Calcium Level 9.3 mg/dL (8.5-10.1) 8.3 mg/dL (8.5-10.1) Total Bilirubin 0.5 mg/dL (0.2-1.0) Aspartate Amino Transf (AST/SGOT) 23 U/L (15-37) Alanine Aminotransferase (ALT/SGPT) 33 U/L (14-59) Alkaline Phosphatase 96 U/L (46-116) Troponin I High Sensitivity 8 ng/L (4-50) Total Protein 7.4 g/dL (6.4-8.2) Albumin 3.7 g/dL (3.4-5.0) Albumin/Globulin Ratio 1.0 (1.0-1.7) Lactic Acid Level 1.6 mmol/L (0.4-2.0) Urine Collection Type Unknown Urine Color (Auto) Yellow Urine Turbidity Clear Urine pH (Auto) 6.0 (<5.0-8.0) Urine Specific Doucette 1.032 (1.000-1.030) Urine Protein (Auto) 30 mg/dL (Negative) Urine Glucose (Auto)(UA) Negative mg/dL (Negative) Urine Ketones (Auto) Negative mg/dL (Negative) Urine Blood (Auto) Negative (Negative) Urine Nitrite (Auto) Negative (Negative) Urine Bilirubin (Auto) Negative (Negative) Urine Urobilinogen (Auto) Normal mg/dL (Normal) Urine Leukocyte Esterase (Auto) Negative (Negative) Urine RBC 0 /HPF (0-2) Urine WBC Occ /HPF (0-4) Urine Squamous Epithelial Cells Mod /LPF Urine Bacteria 0 /HPF (0-FEW) Urine Mucus Mod /LPF Allergies: Coded Allergies: Sulfa (Sulfonamide Antibiotics) (Verified Allergy, Severe, rash, tongue swelling, 04/15/15) Iodinated Contrast Media (Verified Allergy, Intermediate, rash, 04/15/15) Penicillins (Verified Allergy, Intermediate, Hives, 04/15/15) aspirin (Verified Allergy, Intermediate, Hives, 04/15/15) codeine (Verified Allergy, Intermediate, Hives; SEE COMMENT, 06/08/15) PT REPORTS TAKING LORTAB WITHOUT COMPLICATIONS, PER ED diphenhydramine HCl (Verified Allergy, Intermediate, rash, 12/19/13) latex (Verified Allergy, Intermediate, Rash, 12/18/13) Medications: Current Medications Medications (Trade) Dose Ordered Sig/Galilea Route PRN Reason Start Time Stop Time Status Last Admin Dose Admin Sodium Chloride 500 ml @ 500 mls/hr Q1H IV 12/28/21 13:45 12/28/21 13:58 DC 12/28/21 13:58 Benzocaine (Hurricaine One) 1 spray 1X ONCE MM 12/28/21 13:45 12/28/21 13:46 DC 12/28/21 13:58 Diphenhydramine HCl (Benadryl) 50 mg 1X ONCE IVP 12/28/21 13:45 12/28/21 13:46 DC 12/28/21 13:57 Methylprednisolone Sodium Succinate (SOLU-Medrol 40MG VIAL) 40 mg 1X ONCE IV 12/28/21 13:45 12/28/21 13:46 DC 12/28/21 13:57 Pantoprazole Sodium (PROTONIX VIAL for IV PUSH) 40 mg 1X ONCE IVP 12/28/21 14:00 12/28/21 14:01 DC 12/28/21 13:58 Iohexol (Omnipaque 300 Mg/ml) 75 ml 1X ONCE IV 12/28/21 14:45 12/28/21 14:46 DC 12/28/21 15:02 Morphine Sulfate (Morphine Sulfate) 4 mg 1X ONCE IVP 12/28/21 15:00 12/28/21 15:01 DC 12/28/21 15:26 Pantoprazole Sodium 80 mg/ Sodium Chloride 100 ml @ 10 mls/hr 1X ONCE IV 12/28/21 16:00 12/29/21 01:59 DC 12/28/21 16:38 Ondansetron HCl (Zofran) 4 mg PRN Q8HRS PRN IVP NAUSEA/VOMITING 12/28/21 16:45 12/29/21 16:44 12/29/21 02:42 Morphine Sulfate (Morphine Sulfate) 2 mg PRN Q2HR PRN IVP PAIN 12/28/21 16:45 12/29/21 16:44 12/29/21 06:01 Valproic Acid 500 mg/Dextrose 55 ml @ 55 mls/hr Q12HR IV 12/28/21 22:00 12/29/21 00:20 Pantoprazole Sodium 80 mg/ Sodium Chloride 100 ml @ 10 mls/hr Q10H IV 12/28/21 22:30 12/29/21 05:25 Sodium Chloride 1,000 ml @ 100 mls/hr Q10H IV 12/28/21 22:30 12/29/21 02:42 Imaging: Imaging: CT A/P IMPRESSION: 1. No acute abnormality of the abdomen or pelvis, specifically no findings of active GI bleed. 2. Chronic/incidental findings appear similar from multiple priors. PE: GEN: NAD - resting HEENT: Atraumatic, PERRL LUNGS: CTAB anteriorly HEART: RRR +murm ABD: quiet BS, perhaps a bit distended, epigastric and LUQ discomfort to light touch EXTREMITY: No edema SKIN: No rashes, no jaundice NEURO/PSYCH: pretty drowsy A/P: A/P: Vomiting/hematemesis Chronic/recurrent abd pain and diarrhea H/o GERD and gastroparesis CRC screen - UTD Diverticulosis H/o ischemic colitis S/p cholecystectomy H/o A Fib and AVR - on Warfarin -- No recurrent vomiting or bleeding. Vitals stable. Hgb remains WNL. BUN was 30, today 26 w/ normal Cr. Continue NPO (could have ice chips) and PPI, observe for now GI-reyes. Will return later w/ Dr. Baig. Observe for diarrhea - chronic issue - check stool studies if indicated. ANANT OLIVAREZ Dec 29, 2021 10:07
--- NOTE | 2021-12-29 10:13 | HP ---
DATE OF SERVICE: 12/29/2021 ADMIT DATE: 12/28/2021 MEDICAL HISTORY AND PHYSICAL PATIENT LOCATION: [facility]. REASON FOR ADMISSION TO THE HOSPITAL: Upper gastrointestinal bleed, nausea, vomiting, vomiting blood. HISTORY OF PRESENT ILLNESS: There is a 61-year-old female. The patient has a history of mechanical heart valve. The patient is on Coumadin. She has noticed some nausea and vomiting and she vomited some blood. Patient was brought to the hospital. She is on Coumadin 5 mg daily. When she came in, her INR was luckily low at 1.0. Her NG tube shows some bloody fluid, which was suctioned out and the patient was given IV Protonix and admitted to the hospital. GI was consulted. Check hemoglobin q. 6 hours. PAST MEDICAL HISTORY: The patient has multiple admissions to this hospital. Last time, she was in the hospital 6 months ago and she had a mechanical aortic valve. She has a defibrillator for sick sinus syndrome, AFib, anxiety, bipolar, hypertension, schizophrenia and gastroparesis. PAST SURGICAL HISTORY: Mechanical aortic valve defibrillator pacemaker, gallbladder surgery. ALLERGIES: CONTRAST, PENICILLIN, SULFA, ASPIRIN, CODEINE, BENADRYL, AND LATEX. MEDICATIONS AT HOME: Coumadin 5 mg daily, ProAir, tramadol 50 mg, trazodone 50 mg at bedtime, fluoxetine 40 mg daily, Zyprexa 15 mg daily, Seroquel 200 mg 2-1/2 tablets daily, atorvastatin 10 mg daily, Depakote 500 mg twice a day, Lasix 20 mg daily, hydrocodone for pain, isosorbide 30 mg daily, levothyroxine 25 mg daily, lisinopril 20 mg daily, metoprolol 25 mg twice a day, Singulair 10 mg daily, omeprazole 40 mg daily, potassium 40 mEq daily. PERSONAL HISTORY: Denies smoking, alcohol, drug abuse. The patient lives with her . She sometimes uses cane or walker. FAMILY HISTORY: Positive for diabetes, heart disease. REVIEW OF SYSTEMS: Complains of epigastric pain, nausea, vomiting. No black stools yet. Rest of the 14-system reviewed and negative. PHYSICAL EXAMINATION: GENERAL: The patient is resting comfortably, not in any distress. VITAL SIGNS: Shows temperature 98, pulse 90, respirations 20, blood pressure 147/90, 96 on room air. HEENT: Head is atraumatic. The patient has a fixed dilated pupil on the left eye, which has been there from previous stroke. Oral cavity, no NG tube. NECK: Supple. CHEST: Symmetrical, scar of heart surgery, mechanical valve. She also has a pacemaker defibrillator. LUNGS: Clear to auscultation. ABDOMEN: Epigastric pain to deep palpation. No rebound. Bowel sounds present. EXTERNAL GENITALIA: No Siu. RECTUM: Deferred. EXTREMITIES: No calf tenderness, no edema. NEUROLOGIC: Moving all extremities. No focal deficits noted. LABORATORY DATA: White count 12, hemoglobin 16, platelets 204. INR 1.1 and electrolytes show sodium 143, potassium 4.2, chloride 105, bicarb 27, BUN 30, creatinine 0.7. Lactic acid 1.6. LFTs normal. Urine is negative. CT scan abdomen and pelvis shows no acute abdomen problems. FINAL IMPRESSION: 1. Upper gastrointestinal bleed. 2. Possible gastritis. 3. History of mechanical aortic valve, on Coumadin. 4. Subtherapeutic INR. 5. Sick sinus syndrome, pacemaker. 6. Chronic schizophrenia and other conditions stable. PLAN: At this time, admit to hospital, given IV Protonix and then start on Protonix drip. Check hemoglobin q. 6 hours. IV fluids for hydration. GI consultation probably would need EGD. We will not resume Coumadin at the present time until EGD is done. OMAYRA DR: Cynthia TID: [id number]
[2021-12-29 11:00] VITALS: BP 110/59
[2021-12-29 12:30] LABS: BASO % 1 % (0-3); EOS % 1 % (0-3); HEMATOCRIT 40.2 % (36.0-47.0); HEMOGLOBIN 13.3 g/dL (12.0-15.5); LYMPH # 1.1 x10^3/uL (1.0-4.8); LYMPH % 20 % (24-48); MEAN CORPUSCULAR HEMOGLOBIN 28 pg (25-35); MEAN CORPUSCULAR HGB CONC 33 g/dL (31-37); MEAN CORPUSCULAR VOLUME 86 fL (79-100); MONO # 0.6 x10^3/uL (0.0-1.1); MONO % 10 % (0-9); NEUT % 69 % (31-73); PLATELET COUNT 128 x10^3/uL (140-400); RED CELL DISTRIBUTION WIDTH 14.7 % (11.5-14.5); WHITE BLOOD COUNT 5.8 x10^3/uL (4.0-11.0)
[2021-12-29 15:30] VITALS: BP 118/52
--- NOTE | 2021-12-29 15:40 | EKG ---
[facility] [address] [place] [address] Test Date: 2021-12-28 Test Time: 14:02:02 Pat Name: RHETT HERNANDEZ Department: Room: [facility] Gender: F Senior [employer]er: : 1960 Requested By: SAMANTHA Chan Number: [id number] Reading MD: Zion Srivastava Measurements Intervals [place] Rate: 69 P: 0 IA: 158 QRS: 10 QRSD: 86 T: 94 QT: 412 QTc: 448 Interpretive Statements SINUS RHYTHM ST & T ABNORMALITY, CONSIDER HIGH LATERAL ISCHEMIA OR LEFT VENTRICULAR STRAIN T ABNORMALITY IN ANTERIOR LEADS Electronically Signed On 12-31-2021 18:25:57 CDT by Zion Srivastava
[2021-12-29] MEDS ORDERED: WARFARIN 7.5 MG TABLET. PO ONE (18:00)
[2021-12-29 19:00] VITALS: BP 118/60
[2021-12-29] MEDS ORDERED: MORPHINE SULFATE 4 MG/ML INJ. IVP ONE (20:00)
[2021-12-29 20:57] LABS: BASO % 0 % (0-3); EOS # 0.1 x10^3/uL (0.0-0.7); EOS % 2 % (0-3); HEMATOCRIT 38.1 % (36.0-47.0); LYMPH # 1.2 x10^3/uL (1.0-4.8); LYMPH % 25 % (24-48); MEAN CORPUSCULAR HEMOGLOBIN 29 pg (25-35); MEAN CORPUSCULAR HGB CONC 34 g/dL (31-37); MEAN CORPUSCULAR VOLUME 85 fL (79-100); MONO # 0.7 x10^3/uL (0.0-1.1); MONO % 14 % (0-9); NEUT # 2.8 x10^3/uL (1.8-7.7); NEUT % 59 % (31-73); PLATELET COUNT 118 x10^3/uL (140-400); RED BLOOD COUNT 4.47 x10^6/uL (3.50-5.40); RED CELL DISTRIBUTION WIDTH 14.8 % (11.5-14.5); WHITE BLOOD COUNT 4.7 x10^3/uL (4.0-11.0)
[2021-12-29] MEDS: HYDROcodone/APAP 5/325MG 1 TAB TABLET PO PRN (21:40)
[2021-12-29 23:26] VITALS: BP 112/49
[2021-12-30 00:26] LABS: BASO % 1 % (0-3); EOS # 0.1 x10^3/uL (0.0-0.7); EOS % 3 % (0-3); HEMATOCRIT 37.6 % (36.0-47.0); HEMOGLOBIN 12.4 g/dL (12.0-15.5); LYMPH # 1.4 x10^3/uL (1.0-4.8); LYMPH % 29 % (24-48); MEAN CORPUSCULAR HEMOGLOBIN 28 pg (25-35); MEAN CORPUSCULAR HGB CONC 33 g/dL (31-37); MEAN CORPUSCULAR VOLUME 86 fL (79-100); MONO # 0.7 x10^3/uL (0.0-1.1); MONO % 14 % (0-9); NEUT # 2.6 x10^3/uL (1.8-7.7); NEUT % 54 % (31-73); PLATELET COUNT 120 x10^3/uL (140-400); RED BLOOD COUNT 4.41 x10^6/uL (3.50-5.40); RED CELL DISTRIBUTION WIDTH 14.9 % (11.5-14.5); WHITE BLOOD COUNT 4.9 x10^3/uL (4.0-11.0)
[2021-12-30] MEDS: IV NORMAL SALINE 1000ML BAG 1,000 ML IV SCH ×2 (02:30→14:30)
[2021-12-30] MEDS: PANTOPRAZOLE SODIUM IV DRIP 80 MG in IV NORMAL SALINE 100ML 100 ML IV SCH ×2 (02:31→04:30)
[2021-12-30 03:00] VITALS: BP 123/58
[2021-12-30 07:00] VITALS: BP 128/47
[2021-12-30 08:00] LABS: BASO % 1 % (0-3); EOS # 0.1 x10^3/uL (0.0-0.7); EOS % 4 % (0-3); HEMATOCRIT 36.2 % (36.0-47.0); HEMOGLOBIN 11.9 g/dL (12.0-15.5); LYMPH # 1.3 x10^3/uL (1.0-4.8); LYMPH % 36 % (24-48); MEAN CORPUSCULAR HEMOGLOBIN 28 pg (25-35); MEAN CORPUSCULAR HGB CONC 33 g/dL (31-37); MEAN CORPUSCULAR VOLUME 85 fL (79-100); MONO # 0.5 x10^3/uL (0.0-1.1); MONO % 13 % (0-9); NEUT # 1.6 x10^3/uL (1.8-7.7); NEUT % 46 % (31-73); PLATELET COUNT 103 x10^3/uL (140-400); RED BLOOD COUNT 4.24 x10^6/uL (3.50-5.40); RED CELL DISTRIBUTION WIDTH 14.7 % (11.5-14.5); WHITE BLOOD COUNT 3.6 x10^3/uL (4.0-11.0)
[2021-12-30 08:14] LABS: PROTHROMBIN TIME PATIENT 15.2 SEC (11.7-14.0)
[2021-12-30 08:22] LABS: CREATININE 0.5 mg/dL (0.6-1.0); GFR 125.4; POTASSIUM 3.5 mmol/L (3.5-5.1)
--- NOTE | 2021-12-30 09:43 | PDOC ---
PROGRESS NOTES Date of Service: DATE: 12/30/21 TIME: 09:43 Subjective Subjective no more active gi bleed. Objective Objective Vital Signs Date Time Temp Pulse Resp B/P (MAP) Pulse Ox O2 Delivery O2 Flow Rate FiO2 12/30/21 07:00 97.9 59 18 128/47 (74) 94 Room Air 97.9 Intake and Output 12/30/21 07:00 Intake Total 1645 ml Balance 1645 ml Intake Oral 490 ml IV Total 1155 ml # Voids 2 Physical Exam Abdomen: Soft Heart: Normal S1, Normal S2 General: Alert HEENT: Atraumatic Lungs: Clear to auscultation MUSCULOSKELETAL: No swelling, Other Neck: No JVD Neuro: Normal speech Psych/Mental Status: Mood NL Skin: No breakdown Diagnosis Problem List Problems Medical Problems: (1) GI bleed Status: Acute Surgical Problems: (1) S/P AVR (aortic valve replacement) Status: Acute Assessment Assessment Problems Medical Problems: (1) GI bleed Status: Acute Surgical Problems: (1) S/P AVR (aortic valve replacement) Status: Acute FINAL IMPRESSION: 1. Upper gastrointestinal bleed. 2. Possible gastritis. 3. History of mechanical aortic valve, on Coumadin. 4. Subtherapeutic INR. 5. Sick sinus syndrome, pacemaker. 6. Chronic schizophrenia and other conditions stable. PLAN: No plans for EGD resume coumadin bridge with Lovenox 80 mg bid inr 1.2 today hb stable. iv protonix drip At this time, admit to hospital, given IV Protonix and then start on Protonix drip. Check hemoglobin q. 6 hours. IV fluids for hydration. GI consultation probably would need EGD. We will not resume Coumadin at the present time until EGD is done. Plan Plan of Care Problems Medical Problems: (1) GI bleed Status: Acute Surgical Problems: (1) S/P AVR (aortic valve replacement) Status: Acute Comment Review of Relevant I have reviewed the following items yonathan (where applicable) has been applied. Labs Laboratory Tests Test 12/29/21 12:20 12/29/21 20:30 12/30/21 00:15 12/30/21 06:20 White Blood Count 5.8 x10^3/uL (4.0-11.0) 4.7 x10^3/uL (4.0-11.0) 4.9 x10^3/uL (4.0-11.0) 3.6 x10^3/uL (4.0-11.0) Red Blood Count 4.70 x10^6/uL (3.50-5.40) 4.47 x10^6/uL (3.50-5.40) 4.41 x10^6/uL (3.50-5.40) 4.24 x10^6/uL (3.50-5.40) Hemoglobin 13.3 g/dL (12.0-15.5) 13.0 g/dL (12.0-15.5) 12.4 g/dL (12.0-15.5) 11.9 g/dL (12.0-15.5) Hematocrit 40.2 % (36.0-47.0) 38.1 % (36.0-47.0) 37.6 % (36.0-47.0) 36.2 % (36.0-47.0) Mean Corpuscular Volume 86 fL (79-100) 85 fL (79-100) 86 fL (79-100) 85 fL (79-100) Mean Corpuscular Hemoglobin 28 pg (25-35) 29 pg (25-35) 28 pg (25-35) 28 pg (25-35) Mean Corpuscular Hemoglobin Concent 33 g/dL (31-37) 34 g/dL (31-37) 33 g/dL (31-37) 33 g/dL (31-37) Red Cell Distribution Width 14.7 % (11.5-14.5) 14.8 % (11.5-14.5) 14.9 % (11.5-14.5) 14.7 % (11.5-14.5) Platelet Count 128 x10^3/uL (140-400) 118 x10^3/uL (140-400) 120 x10^3/uL (140-400) 103 x10^3/uL (140-400) Neutrophils (%) (Auto) 69 % (31-73) 59 % (31-73) 54 % (31-73) 46 % (31-73) Lymphocytes (%) (Auto) 20 % (24-48) 25 % (24-48) 29 % (24-48) 36 % (24-48) Monocytes (%) (Auto) 10 % (0-9) 14 % (0-9) 14 % (0-9) 13 % (0-9) Eosinophils (%) (Auto) 1 % (0-3) 2 % (0-3) 3 % (0-3) 4 % (0-3) Basophils (%) (Auto) 1 % (0-3) 0 % (0-3) 1 % (0-3) 1 % (0-3) Neutrophils # (Auto) 4.0 x10^3/uL (1.8-7.7) 2.8 x10^3/uL (1.8-7.7) 2.6 x10^3/uL (1.8-7.7) 1.6 x10^3/uL (1.8-7.7) Lymphocytes # (Auto) 1.1 x10^3/uL (1.0-4.8) 1.2 x10^3/uL (1.0-4.8) 1.4 x10^3/uL (1.0-4.8) 1.3 x10^3/uL (1.0-4.8) Monocytes # (Auto) 0.6 x10^3/uL (0.0-1.1) 0.7 x10^3/uL (0.0-1.1) 0.7 x10^3/uL (0.0-1.1) 0.5 x10^3/uL (0.0-1.1) Eosinophils # (Auto) 0.0 x10^3/uL (0.0-0.7) 0.1 x10^3/uL (0.0-0.7) 0.1 x10^3/uL (0.0-0.7) 0.1 x10^3/uL (0.0-0.7) Basophils # (Auto) 0.0 x10^3/uL (0.0-0.2) 0.0 x10^3/uL (0.0-0.2) 0.0 x10^3/uL (0.0-0.2) 0.0 x10^3/uL (0.0-0.2) Prothrombin Time 15.2 SEC (11.7-14.0) Prothromb Time International Ratio 1.2 (0.8-1.1) Sodium Level 142 mmol/L (136-145) Potassium Level 3.5 mmol/L (3.5-5.1) Chloride Level 108 mmol/L (98-107) Carbon Dioxide Level 30 mmol/L (21-32) Anion Gap 4 (6-14) Blood Urea Nitrogen 20 mg/dL (7-20) Creatinine 0.5 mg/dL (0.6-1.0) Estimated GFR (Cockcroft-Gault) 125.4 Glucose Level 88 mg/dL (70-99) Calcium Level 8.0 mg/dL (8.5-10.1) Medications Current Medications Acetaminophen/ Hydrocodone Bitart (Lortab 5/325) 1 tab PRN Q6HRS PRN PO PAIN Last administered on 12/29/21at 21:40; Start 12/29/21 at 21:30 Enoxaparin Sodium (Lovenox 80mg Syringe) 80 mg 1X ONCE SQ ; Start 12/30/21 at 09:45; Stop 12/30/21 at 09:46; Status UNV Enoxaparin Sodium (Lovenox 80mg Syringe) 80 mg Q12HR SQ ; Start 12/30/21 at 21:00; Status UNV Morphine Sulfate (Morphine Sulfate) 4 mg 1X ONCE IVP Last administered on 12/29/21at 20:00; Start 12/29/21 at 20:00; Stop 12/29/21 at 20:01; Status DC Warfarin Sodium (Coumadin Per Pharmacy) 1 each PRN DAILY PRN MC SEE COMMENTS; Start 12/29/21 at 17:30 Warfarin Sodium (Coumadin) 5 mg DAILY PO ; Start 12/30/21 at 16:00 Warfarin Sodium (Coumadin) 7.5 mg 1X ONCE PO Last administered on 12/29/21at 19:20; Start 12/29/21 at 18:00; Stop 12/29/21 at 18:01; Status DC Vitals/I & O Vital Sign - Last 24 Hours 12/29/21 12/29/21 12/29/21 12/29/21 10:00 10:02 10:32 11:00 Temp 98.1 98.1 Pulse 63 Resp 18 16 18 B/P (MAP) 110/59 (76) Pulse Ox 93 O2 Delivery Room Air Room Air Room Air Room Air 12/29/21 12/29/21 12/29/21 12/29/21 15:30 19:00 20:00 20:00 Temp 98.5 98.8 98.5 98.8 Pulse 64 66 Resp 18 20 18 B/P (MAP) 118/52 (74) 118/60 (79) Pulse Ox 95 94 95 O2 Delivery Room Air Room Air Room Air Room Air 12/29/21 12/29/21 12/29/21 12/29/21 20:30 21:40 22:10 23:26 Temp 98.4 98.4 Pulse 69 Resp 16 16 18 20 B/P (MAP) 112/49 (70) Pulse Ox 94 95 94 93 O2 Delivery Room Air Room Air Room Air Room Air 12/30/21 12/30/21 03:00 07:00 Temp 98.0 97.9 98.0 97.9 Pulse 60 59 Resp 20 18 B/P (MAP) 123/58 (79) 128/47 (74) Pulse Ox 94 94 O2 Delivery Room Air Room Air Intake and Output 12/29/21 12/29/21 12/30/21 15:00 23:00 07:00 Intake Total 425 ml 1220 ml Balance 425 ml 1220 ml Justifications for Admission Other Justification NICOLE SMITH MD Dec 30, 2021 09:43
[2021-12-30] MEDS: VALPROIC ACID (AS SODIUM SALT) 500 MG in IV DEXTROSE 5% 50 ML IV SCH ×2 (09:52→20:39)
[2021-12-30] MEDS: HYDROcodone/APAP 5/325MG 1 TAB TABLET PO PRN ×3 (09:54→22:33)
--- NOTE | 2021-12-30 10:20 | PDOC ---
Date of Service: DATE: 12/30/21 TIME: 10:17 Subjective: Subjective: Vomited a little bit this morning, no bleeding. Less abdominal pain. Hasn't stooled. Objective: Objective: D/w Dr. Becca levin to restart Warfarin. Vital Signs: Vital Signs Date Time Temp Pulse Resp B/P (MAP) Pulse Ox O2 Delivery O2 Flow Rate FiO2 12/30/21 09:54 16 Room Air 12/30/21 07:00 97.9 59 128/47 (74) 94 97.9 Labs: Laboratory Tests Test 12/29/21 12:20 12/29/21 20:30 12/30/21 00:15 12/30/21 06:20 White Blood Count 5.8 x10^3/uL 4.7 x10^3/uL 4.9 x10^3/uL 3.6 x10^3/uL Red Blood Count 4.70 x10^6/uL 4.47 x10^6/uL 4.41 x10^6/uL 4.24 x10^6/uL Hemoglobin 13.3 g/dL 13.0 g/dL 12.4 g/dL 11.9 g/dL Hematocrit 40.2 % 38.1 % 37.6 % 36.2 % Mean Corpuscular Volume 86 fL 85 fL 86 fL 85 fL Mean Corpuscular Hemoglobin 28 pg 29 pg 28 pg 28 pg Mean Corpuscular Hemoglobin Concent 33 g/dL 34 g/dL 33 g/dL 33 g/dL Red Cell Distribution Width 14.7 % 14.8 % 14.9 % 14.7 % Platelet Count 128 x10^3/uL 118 x10^3/uL 120 x10^3/uL 103 x10^3/uL Neutrophils (%) (Auto) 69 % 59 % 54 % 46 % Lymphocytes (%) (Auto) 20 % 25 % 29 % 36 % Monocytes (%) (Auto) 10 % 14 % 14 % 13 % Eosinophils (%) (Auto) 1 % 2 % 3 % 4 % Basophils (%) (Auto) 1 % 0 % 1 % 1 % Neutrophils # (Auto) 4.0 x10^3/uL 2.8 x10^3/uL 2.6 x10^3/uL 1.6 x10^3/uL Lymphocytes # (Auto) 1.1 x10^3/uL 1.2 x10^3/uL 1.4 x10^3/uL 1.3 x10^3/uL Monocytes # (Auto) 0.6 x10^3/uL 0.7 x10^3/uL 0.7 x10^3/uL 0.5 x10^3/uL Eosinophils # (Auto) 0.0 x10^3/uL 0.1 x10^3/uL 0.1 x10^3/uL 0.1 x10^3/uL Basophils # (Auto) 0.0 x10^3/uL 0.0 x10^3/uL 0.0 x10^3/uL 0.0 x10^3/uL Prothrombin Time 15.2 SEC Prothromb Time International Ratio 1.2 Sodium Level 142 mmol/L Potassium Level 3.5 mmol/L Chloride Level 108 mmol/L Carbon Dioxide Level 30 mmol/L Anion Gap 4 Blood Urea Nitrogen 20 mg/dL Creatinine 0.5 mg/dL Estimated GFR (Cockcroft-Gault) 125.4 Glucose Level 88 mg/dL Calcium Level 8.0 mg/dL PE: GEN: NAD, resting LUNGS: CTAB HEART: RRR +mrum ABD: less tender, soft NEURO/PSYCH: A & O 3, drowsy A/P: Vomiting/hematemesis Chronic abd pain, h/o GERD and gastroparesis - many 'scopes in past H/o A Fib and AVR - on Warfarin -- Probably doesn't need PPI drip - will change to IV push. I believe she takes Reglan at home - restart this IV? Justicifation of Admission Dx: Justifications for Admission: Justification of Admission Dx: Yes ANANT OLIVAREZ Dec 30, 2021 10:20
[2021-12-30 11:00] VITALS: BP 134/55
[2021-12-30] MEDS ORDERED: ANTI-COAG MONITOR BY PHARMACY. MC PRN (12:15)
[2021-12-30 12:30] LABS: BASO % 1 % (0-3); EOS # 0.2 x10^3/uL (0.0-0.7); EOS % 4 % (0-3); HEMATOCRIT 38.4 % (36.0-47.0); HEMOGLOBIN 12.7 g/dL (12.0-15.5); LYMPH # 1.3 x10^3/uL (1.0-4.8); LYMPH % 31 % (24-48); MEAN CORPUSCULAR HEMOGLOBIN 28 pg (25-35); MEAN CORPUSCULAR HGB CONC 33 g/dL (31-37); MEAN CORPUSCULAR VOLUME 85 fL (79-100); MONO # 0.5 x10^3/uL (0.0-1.1); MONO % 12 % (0-9); NEUT # 2.1 x10^3/uL (1.8-7.7); NEUT % 53 % (31-73); PLATELET COUNT 111 x10^3/uL (140-400); RED CELL DISTRIBUTION WIDTH 14.9 % (11.5-14.5)
[2021-12-30 15:00] VITALS: BP 136/52
[2021-12-30] MEDS ORDERED: WARFARIN 7.5 MG TABLET. PO ONE (16:00)
[2021-12-30] MEDS: WARFARIN 5 MG TABLET. PO SCH (16:50)
[2021-12-30] MEDS: PANTOPRAZOLE IV PUSH 40 MG VIAL. IVP SCH (16:50)
[2021-12-30 19:00] VITALS: BP 136/58
[2021-12-30 22:47] VITALS: BP 171/83
[2021-12-31] VITALS (7 sets, daily range): BP systolic 119–153; BP diastolic 57–69
[2021-12-31] MEDS: IV NORMAL SALINE 1000ML BAG 1,000 ML IV SCH ×2 (01:43→11:51)
[2021-12-31] MEDS: HYDROcodone/APAP 5/325MG 1 TAB TABLET PO PRN ×2 (03:10→20:37)
[2021-12-31 08:25] LABS: BASO % 1 % (0-3); EOS # 0.1 x10^3/uL (0.0-0.7); EOS % 4 % (0-3); HEMOGLOBIN 11.6 g/dL (12.0-15.5); LYMPH # 1.2 x10^3/uL (1.0-4.8); LYMPH % 34 % (24-48); MEAN CORPUSCULAR HEMOGLOBIN 29 pg (25-35); MEAN CORPUSCULAR HGB CONC 34 g/dL (31-37); MEAN CORPUSCULAR VOLUME 86 fL (79-100); MONO # 0.3 x10^3/uL (0.0-1.1); MONO % 10 % (0-9); NEUT # 1.8 x10^3/uL (1.8-7.7); NEUT % 52 % (31-73); PLATELET COUNT 100 x10^3/uL (140-400); RED BLOOD COUNT 3.97 x10^6/uL (3.50-5.40); RED CELL DISTRIBUTION WIDTH 14.6 % (11.5-14.5); WHITE BLOOD COUNT 3.5 x10^3/uL (4.0-11.0)
[2021-12-31 08:35] LABS: CALCIUM 7.9 mg/dL (8.5-10.1); CREATININE 0.5 mg/dL (0.6-1.0); GFR 125.4; POTASSIUM 3.2 mmol/L (3.5-5.1)
[2021-12-31 08:46] LABS: PROTHROMBIN TIME PATIENT 30.1 SEC (11.7-14.0)
--- NOTE | 2021-12-31 09:11 | PDOC ---
PROGRESS NOTES Date of Service: DATE: 12/31/21 TIME: 09:09 Subjective Subjective no more gi bleed Objective Objective Vital Signs Date Time Temp Pulse Resp B/P (MAP) Pulse Ox O2 Delivery O2 Flow Rate FiO2 12/31/21 03:40 16 96 Room Air 12/31/21 03:00 98.2 61 132/60 (84) 98.2 Intake and Output 12/31/21 07:00 Intake Total 2800 ml Balance 2800 ml Intake Oral 800 ml IV Total 2000 ml # Voids 4 # Bowel Movements 1 Physical Exam Abdomen: Soft Heart: Normal S1, Normal S2 General: Alert HEENT: Atraumatic Lungs: Clear to auscultation MUSCULOSKELETAL: No swelling, Other Neck: No JVD Neuro: Normal speech Psych/Mental Status: Mood NL Skin: No breakdown Diagnosis Problem List Problems Medical Problems: (1) GI bleed Status: Acute Surgical Problems: (1) S/P AVR (aortic valve replacement) Status: Acute Assessment Assessment Problems Medical Problems: (1) GI bleed Status: Acute Surgical Problems: (1) S/P AVR (aortic valve replacement) Status: Acute FINAL IMPRESSION: 1. Upper gastrointestinal bleed. 2. Possible gastritis. 3. History of mechanical aortic valve, on Coumadin. 4. Subtherapeutic INR. 5. Sick sinus syndrome, pacemaker. 6. Chronic schizophrenia and other conditions stable. PLAN: advance diet No plans for EGD resumed coumadin,inr 3.0 today d/c Lovenox 80 mg bid inr 3.0 today hb stable. iv protonix drip. ambulate resume home meds ,replace pot 3.2 today Plan Plan of Care Problems Medical Problems: (1) GI bleed Status: Acute Surgical Problems: (1) S/P AVR (aortic valve replacement) Status: Acute Comment Review of Relevant I have reviewed the following items yonathan (where applicable) has been applied. Labs Laboratory Tests Test 12/30/21 12:20 12/31/21 06:30 White Blood Count 4.0 x10^3/uL (4.0-11.0) 3.5 x10^3/uL (4.0-11.0) Red Blood Count 4.50 x10^6/uL (3.50-5.40) 3.97 x10^6/uL (3.50-5.40) Hemoglobin 12.7 g/dL (12.0-15.5) 11.6 g/dL (12.0-15.5) Hematocrit 38.4 % (36.0-47.0) 34.0 % (36.0-47.0) Mean Corpuscular Volume 85 fL (79-100) 86 fL (79-100) Mean Corpuscular Hemoglobin 28 pg (25-35) 29 pg (25-35) Mean Corpuscular Hemoglobin Concent 33 g/dL (31-37) 34 g/dL (31-37) Red Cell Distribution Width 14.9 % (11.5-14.5) 14.6 % (11.5-14.5) Platelet Count 111 x10^3/uL (140-400) 100 x10^3/uL (140-400) Neutrophils (%) (Auto) 53 % (31-73) 52 % (31-73) Lymphocytes (%) (Auto) 31 % (24-48) 34 % (24-48) Monocytes (%) (Auto) 12 % (0-9) 10 % (0-9) Eosinophils (%) (Auto) 4 % (0-3) 4 % (0-3) Basophils (%) (Auto) 1 % (0-3) 1 % (0-3) Neutrophils # (Auto) 2.1 x10^3/uL (1.8-7.7) 1.8 x10^3/uL (1.8-7.7) Lymphocytes # (Auto) 1.3 x10^3/uL (1.0-4.8) 1.2 x10^3/uL (1.0-4.8) Monocytes # (Auto) 0.5 x10^3/uL (0.0-1.1) 0.3 x10^3/uL (0.0-1.1) Eosinophils # (Auto) 0.2 x10^3/uL (0.0-0.7) 0.1 x10^3/uL (0.0-0.7) Basophils # (Auto) 0.0 x10^3/uL (0.0-0.2) 0.0 x10^3/uL (0.0-0.2) Prothrombin Time 30.1 SEC (11.7-14.0) Prothromb Time International Ratio 3.0 (0.8-1.1) Sodium Level 141 mmol/L (136-145) Potassium Level 3.2 mmol/L (3.5-5.1) Chloride Level 107 mmol/L (98-107) Carbon Dioxide Level 30 mmol/L (21-32) Anion Gap 4 (6-14) Blood Urea Nitrogen 9 mg/dL (7-20) Creatinine 0.5 mg/dL (0.6-1.0) Estimated GFR (Cockcroft-Gault) 125.4 Glucose Level 83 mg/dL (70-99) Calcium Level 7.9 mg/dL (8.5-10.1) Medications Current Medications Acetaminophen/ Hydrocodone Bitart (Lortab 5/325) 1 tab PRN Q4HRS PRN PO PAIN Last administered on 12/31/21at 03:10; Start 12/30/21 at 22:30 Enoxaparin Sodium (Lovenox 80mg Syringe) 80 mg 1X ONCE SQ Last administered on 12/30/21at 09:53; Start 12/30/21 at 10:00; Stop 12/30/21 at 10:01; Status DC Enoxaparin Sodium (Lovenox 80mg Syringe) 80 mg Q12HR SQ Last administered on 12/30/21at 20:39; Start 12/30/21 at 21:00 Info (Anti-Coagulation Monitoring By Pharmacy) 1 each PRN DAILY PRN MC PER PROTOCOL Last administered on 12/30/21at 12:12; Start 12/30/21 at 12:15; Stop 12/30/21 at 12:25; Status DC Pantoprazole Sodium (PROTONIX VIAL for IV PUSH) 40 mg BIDAC IVP Last administered on 12/30/21 16:50; Start 12/30/21 at 16:30 Warfarin Sodium (Coumadin) 5 mg DAILY PO Last administered on 12/30/21 16:50; Start 12/30/21 at 16:00 Warfarin Sodium (Coumadin) 7.5 mg 1X WARF ONCE PO Last administered on 12/30/21at 16:49; Start 12/30/21 at 16:00; Stop 12/30/21 at 16:01; Status DC Vitals/I & O Vital Sign - Last 24 Hours 12/30/21 12/30/21 12/30/21 4/19/22 09:54 10:24 11:00 15:00 Temp 98.1 98.3 98.1 98.3 Pulse 61 69 Resp 16 18 18 18 B/P (MAP) 134/55 (81) 136/52 (80) Pulse Ox 94 96 O2 Delivery Room Air Room Air Room Air Room Air 12/30/21 12/30/21 12/30/21 12/30/21 17:01 17:32 19:00 20:00 Temp 98.4 98.4 Pulse 61 Resp 20 20 20 B/P (MAP) 136/58 (84) Pulse Ox 94 O2 Delivery Room Air Room Air Room Air Room Air 12/30/21 12/30/21 12/30/21 12/31/21 22:33 22:47 23:03 01:18 Temp 98.3 98.3 Pulse 60 60 Resp 16 20 18 18 B/P (MAP) 171/83 (112) 132/61 (84) Pulse Ox 94 96 96 O2 Delivery Room Air Room Air Room Air Room Air 12/31/21 12/31/21 12/31/21 03:00 03:10 03:40 Temp 98.2 98.2 Pulse 61 Resp 20 18 16 B/P (MAP) 132/60 (84) Pulse Ox 96 96 96 O2 Delivery Room Air Room Air Room Air Intake and Output 12/30/21 12/30/21 12/31/21 15:00 23:00 07:00 Intake Total 240 ml 1360 ml 1200 ml Balance 240 ml 1360 ml 1200 ml Justifications for Admission Other Justification NICOLE SMITH MD Dec 31, 2021 09:11
[2021-12-31] MEDS ORDERED: HYDROcodone/APAP 5/325MG 1 TAB TABLET PO PRN (09:15)
[2021-12-31] MEDS ORDERED: NITROGLYCERIN SUBLINGUAL 0.4 MG BOTTLE OF 25. SL PRN (09:15)
[2021-12-31] MEDS: WARFARIN 5 MG TABLET. PO SCH (09:57)
[2021-12-31] MEDS: LISINOPRIL 20 MG TABLET PO SCH (09:58)
[2021-12-31] MEDS: LEVOTHYROXINE 25 MCG TABLET. PO SCH (09:59)
[2021-12-31] MEDS: BENZTROPINE MESYLATE 1 MG TABLET. PO SCH ×2 (09:59→20:37)
[2021-12-31] MEDS: DIVALPROEX DELAYED RELEASE 500 MG TABLET.DR. PO SCH ×2 (09:59→20:37)
[2021-12-31] MEDS: FUROSEMIDE 40 MG TABLET. PO SCH (09:59)
[2021-12-31] MEDS: METOPROLOL TART IMMED RELEASE 50 MG TABLET. PO SCH ×2 (10:00→20:38)
[2021-12-31] MEDS ORDERED: POTASSIUM CHLORIDE 20 MEQ TABLET.ER. PO ONE (10:00)
[2021-12-31] MEDS: FLUoxetine HCL 20 MG CAPSULE PO SCH (10:00)
[2021-12-31] MEDS: PREGABALIN 50 MG CAPSULE PO SCH ×2 (10:01→20:37)
[2021-12-31] MEDS: PANTOPRAZOLE IV PUSH 40 MG VIAL. IVP SCH ×2 (10:02→17:07)
--- NOTE | 2021-12-31 10:41 | PDOC ---
Date of Service: DATE: 12/31/21 TIME: 10:39 Subjective: Subjective: Not really hungry, trying to eat. No vomiting. "Tarry stool" yesterday. Abd discomfort - same location as usual. Objective: Vital Signs: Vital Signs Date Time Temp Pulse Resp B/P (MAP) Pulse Ox O2 Delivery O2 Flow Rate FiO2 12/31/21 10:00 61 132/60 12/31/21 07:00 98.1 16 94 Room Air 98.1 Labs: Laboratory Tests Test 12/30/21 12:20 12/31/21 06:30 White Blood Count 4.0 x10^3/uL 3.5 x10^3/uL Red Blood Count 4.50 x10^6/uL 3.97 x10^6/uL Hemoglobin 12.7 g/dL 11.6 g/dL Hematocrit 38.4 % 34.0 % Mean Corpuscular Volume 85 fL 86 fL Mean Corpuscular Hemoglobin 28 pg 29 pg Mean Corpuscular Hemoglobin Concent 33 g/dL 34 g/dL Red Cell Distribution Width 14.9 % 14.6 % Platelet Count 111 x10^3/uL 100 x10^3/uL Neutrophils (%) (Auto) 53 % 52 % Lymphocytes (%) (Auto) 31 % 34 % Monocytes (%) (Auto) 12 % 10 % Eosinophils (%) (Auto) 4 % 4 % Basophils (%) (Auto) 1 % 1 % Neutrophils # (Auto) 2.1 x10^3/uL 1.8 x10^3/uL Lymphocytes # (Auto) 1.3 x10^3/uL 1.2 x10^3/uL Monocytes # (Auto) 0.5 x10^3/uL 0.3 x10^3/uL Eosinophils # (Auto) 0.2 x10^3/uL 0.1 x10^3/uL Basophils # (Auto) 0.0 x10^3/uL 0.0 x10^3/uL Prothrombin Time 30.1 SEC Prothromb Time International Ratio 3.0 Sodium Level 141 mmol/L Potassium Level 3.2 mmol/L Chloride Level 107 mmol/L Carbon Dioxide Level 30 mmol/L Anion Gap 4 Blood Urea Nitrogen 9 mg/dL Creatinine 0.5 mg/dL Estimated GFR (Cockcroft-Gault) 125.4 Glucose Level 83 mg/dL Calcium Level 7.9 mg/dL PE: GEN: NAD - tray of full liquid breakfast - holding spoon LUNGS: CTAB HEART: RRR+murm ABD: soft, left-sided discomfort (chronic) NEURO/PSYCH: A & O 3, lethargic A/P: Vomiting/hematemesis - resolved Mild anemia - Hgb fluctuating Chronic abd pain, h/o GERD and gastroparesis - many 'scopes in past H/o A Fib and AVR - on Warfarin, INR 3 -- Observe GI-reyes. Diet as able. Change to PO PPI when eating reliably. Justicifation of Admission Dx: Justifications for Admission: Justification of Admission Dx: Yes ANANT OLIVAREZ Dec 31, 2021 10:41
--- NOTE | 2021-12-31 11:34 | NUR ---
SS following for discharge planning. SS reviewed pt chart and discussed with pt RN. Pt is from home with spouse and is currently on room air. GI following. Discharge plan is currently to home when medically ready for discharge. SS will continue to follow for discharge planning.
[2021-12-31] MEDS: QUEtiapine 25 MG TABLET. PO SCH (12:00)
[2021-12-31] MEDS ORDERED: ALBUTEROL SULFATE 2.5 MG/3 ML NEBU. NEB PRN (12:00)
--- NOTE | 2021-12-31 12:29 | NUR ---
Pharmacy Warfarin Dosing Note S: Pharmacy consulted to assist with anticoagulation therapy O: RHETT HERNANDEZ is a 61 year old F with Mechanical Aortic Valve LABS: Last INR: 3 Last HGB: 11.9 Last HCT: 36.2 Last PLT: 103 Last dose of 5 mg given on 12/30/21 at 0957 Vitamin K given: N Ongoing Drug Interactions: A:INR of 3 is above desired range. Target range for this patient is: 2 -3 P: Warfarin dose: 5mg dose given this am; daily dosing d/c'd for now to check lab in am Bridge Therapy: D/C'D Next INR due tomorrow Pharmacy anticoagulation service will continue to follow. Luisa Maloney RPH, 12/31/21 [id number]
[2021-12-31] MEDS: SUCRALFATE 1 GM TABLET. PO SCH ×3 (13:00→20:37)
[2021-12-31] MEDS ORDERED: MONTELUKAST SODIUM 10 MG TABLET. PO SCH (21:00)
[2021-12-31] MEDS ORDERED: ATORVASTATIN CALCIUM 10 MG TABLET. PO SCH (21:00)
[2021-12-31] MEDS ORDERED: MIRTAZAPINE 15 MG TABLET PO SCH (21:00)
[2021-12-31] MEDS ORDERED: traZODone 50 MG TABLET. PO SCH (21:00)
[2021-12-31] MEDS ORDERED: QUEtiapine 100 MG TABLET. PO SCH (21:00)
[2022-01-01 03:13] VITALS: BP 135/65
[2022-01-01 07:00] VITALS: BP 169/70
[2022-01-01] MEDS: LEVOTHYROXINE 25 MCG TABLET. PO SCH (07:00)
[2022-01-01] MEDS: PANTOPRAZOLE IV PUSH 40 MG VIAL. IVP SCH (07:48)
[2022-01-01] MEDS ORDERED: POTASSIUM CHLORIDE 20 MEQ TABLET.ER. PO SCH (08:00)
[2022-01-01 08:22] LABS: PROTHROMBIN TIME PATIENT 35.8 SEC (11.7-14.0)
[2022-01-01 08:46] LABS: CALCIUM 8.6 mg/dL (8.5-10.1); CREATININE 0.6 mg/dL (0.6-1.0); GFR 101.6; POTASSIUM 3.1 mmol/L (3.5-5.1)
[2022-01-01] MEDS: SUCRALFATE 1 GM TABLET. PO SCH ×2 (08:55→12:57)
[2022-01-01] MEDS: PREGABALIN 50 MG CAPSULE PO SCH (08:55)
[2022-01-01] MEDS: FLUoxetine HCL 20 MG CAPSULE PO SCH (08:55)
[2022-01-01] MEDS: BENZTROPINE MESYLATE 1 MG TABLET. PO SCH (08:55)
[2022-01-01] MEDS: DIVALPROEX DELAYED RELEASE 500 MG TABLET.DR. PO SCH (08:55)
[2022-01-01] MEDS: LISINOPRIL 20 MG TABLET PO SCH (08:56)
[2022-01-01] MEDS: FUROSEMIDE 40 MG TABLET. PO SCH (08:56)
[2022-01-01] MEDS: METOPROLOL TART IMMED RELEASE 50 MG TABLET. PO SCH (08:56)
[2022-01-01] MEDS ORDERED: OLANZAPINE 30 MG PO SCH (09:00)
[2022-01-01] MEDS ORDERED: NON FORMULARY ITEM (Omeprazole 1 CAP) PO SCH (09:00)
--- NOTE | 2022-01-01 09:11 | PDOC ---
PROGRESS NOTES Date of Service: DATE: 01/01/22 TIME: 09:11 Subjective Subjective tolerating diet Objective Objective Vital Signs Date Time Temp Pulse Resp B/P (MAP) Pulse Ox O2 Delivery O2 Flow Rate FiO2 01/01/22 08:56 60 169/70 01/01/22 07:54 Room Air 01/01/22 07:00 97.4 18 94 97.4 Intake and Output 01/01/22 06:59 Intake Total 720 ml Balance 720 ml Intake Oral 720 ml # Voids 2 Physical Exam Abdomen: Soft Heart: Normal S1, Normal S2 General: Alert HEENT: Atraumatic Lungs: Clear to auscultation MUSCULOSKELETAL: No swelling, Other Neck: No JVD Neuro: Normal speech Psych/Mental Status: Mood NL Skin: No breakdown Diagnosis Problem List Problems Medical Problems: (1) GI bleed Status: Acute Surgical Problems: (1) S/P AVR (aortic valve replacement) Status: Acute Assessment Assessment Problems Medical Problems: (1) GI bleed Status: Acute Surgical Problems: (1) S/P AVR (aortic valve replacement) Status: Acute FINAL IMPRESSION: 1. Upper gastrointestinal bleed. 2. Possible gastritis. 3. History of mechanical aortic valve, on Coumadin. 4. Subtherapeutic INR. 5. Sick sinus syndrome, pacemaker. 6. Chronic schizophrenia and other conditions stable. PLAN: d/c home today. Tolerating diet No plans for EGD hold coumadin today ,inr 3.8 today d/cd Lovenox 80 mg bid hb stable. po protonix ambulate resume home meds , replaced pot .POt 3.1 today inr check in 1 week,bmp in 1 week Plan Plan of Care Problems Medical Problems: (1) GI bleed Status: Acute Surgical Problems: (1) S/P AVR (aortic valve replacement) Status: Acute Comment Review of Relevant I have reviewed the following items yonathan (where applicable) has been applied. Labs Laboratory Tests Test 01/01/22 06:50 01/01/22 07:30 Sodium Level 145 mmol/L (136-145) Potassium Level 3.1 mmol/L (3.5-5.1) Chloride Level 107 mmol/L (98-107) Carbon Dioxide Level 31 mmol/L (21-32) Anion Gap 7 (6-14) Blood Urea Nitrogen 13 mg/dL (7-20) Creatinine 0.6 mg/dL (0.6-1.0) Estimated GFR (Cockcroft-Gault) 101.6 Glucose Level 96 mg/dL (70-99) Calcium Level 8.6 mg/dL (8.5-10.1) Prothrombin Time 35.8 SEC (11.7-14.0) Prothromb Time International Ratio 3.7 (0.8-1.1) Medications Current Medications Acetaminophen/ Hydrocodone Bitart (Lortab 5/325) 1 tab PRN Q6HRS PRN PO PAIN; Start 12/31/21 at 09:15 Albuterol Sulfate (Ventolin Neb Soln) 2.5 mg PRN Q4HRS PRN NEB SHORTNESS OF BREATH; Start 12/31/21 at 12:00 Atorvastatin Calcium (Lipitor) 10 mg QHS PO Last administered on 12/31/21at 20:37; Start 12/31/21 at 21:00 Benztropine Mesylate (Cogentin) 1 mg BID PO Last administered on 01/01/22at 08:55; Start 12/31/21 at 10:00 Divalproex Sodium (Depakote) 500 mg BID PO Last administered on 01/01/22at 08:55; Start 12/31/21 at 10:00 Fluoxetine HCl (PROzac) 20 mg DAILY PO Last administered on 01/01/22at 08:55; Start 12/31/21 at 10:00 Furosemide (Lasix) 40 mg DAILY PO Last administered on 01/01/22at 08:56; Start 12/31/21 at 10:00 Levothyroxine Sodium (Synthroid) 25 mcg DAILY07 PO Last administered on 01/01/22at 07:00; Start 12/31/21 at 10:00 Lisinopril (Prinivil) 40 mg DAILY PO Last administered on 01/01/22at 08:56; Start 12/31/21 at 10:00 Metoprolol Tartrate (Lopressor) 50 mg BID PO Last administered on 01/01/22at 08:56; Start 12/31/21 at 10:00 Mirtazapine (Remeron) 30 mg QHS PO Last administered on 12/31/21at 20:37; Start 12/31/21 at 21:00 Montelukast Sodium (Singulair) 10 mg QHS PO Last administered on 12/31/21at 20:36; Start 12/31/21 at 21:00 Nitroglycerin (Nitrostat) 0.4 mg PRN Q5MIN PRN SL CHEST PAIN; Start 12/31/21 at 09:15 Non-Formulary Medication (Olanzapine ) 30 mg DAILY PO ; Start 01/01/22 at 09:00; Status UNV Non-Formulary Medication (Omeprazole ) 1 cap DAILY PO ; Start 01/01/22 at 09:00; Status UNV Potassium Chloride (Klor-Con) 20 meq DAILYWBKFT PO Last administered on 01/01/22at 07:49; Start 01/01/22 at 08:00 Potassium Chloride (Klor-Con) 40 meq 1X ONCE PO Last administered on 12/31/21at 09:58; Start 12/31/21 at 10:00; Stop 12/31/21 at 10:01; Status DC Pregabalin (Lyrica) 50 mg BID PO Last administered on 01/01/22at 08:55; Start 12/31/21 at 10:00 Quetiapine Fumarate (SEROquel) 25 mg NOON PO Last administered on 12/31/21at 12:00; Start 12/31/21 at 12:00 Quetiapine Fumarate (SEROquel) 500 mg HS PO Last administered on 12/31/21at 20:36; Start 12/31/21 at 21:00 Sucralfate (Carafate) 1 gm QID PO Last administered on 01/01/22at 08:55; Start 12/31/21 at 13:00 Trazodone HCl (Desyrel) 50 mg HS PO Last administered on 12/31/21at 20:36; Start 12/31/21 at 21:00 Vitals/I & O Vital Sign - Last 24 Hours 12/31/21 12/31/21 12/31/21 12/31/21 09:58 10:00 11:00 11:36 Temp 97.6 97.6 Pulse 61 61 74 Resp 18 B/P (MAP) 132/60 132/60 153/69 (97) Pulse Ox 95 96 O2 Delivery Room Air Room Air 12/31/21 12/31/21 12/31/21 12/31/21 15:00 19:00 20:20 20:37 Temp 98.2 98.3 98.2 98.3 Pulse 60 60 Resp 18 18 B/P (MAP) 142/68 (92) 119/57 (77) Pulse Ox 96 96 96 O2 Delivery Room Air Room Air Room Air Room Air 12/31/21 12/31/21 12/31/21 01/01/22 20:38 21:07 23:08 03:13 Temp 98.1 98.0 98.1 98.0 Pulse 60 58 60 Resp 18 18 B/P (MAP) 142/68 127/67 (87) 135/65 (88) Pulse Ox 94 94 97 O2 Delivery Room Air Room Air Room Air 01/01/22 01/01/22 01/01/22 01/01/22 07:00 07:54 08:56 08:56 Temp 97.4 97.4 Pulse 60 60 60 Resp 18 B/P (MAP) 169/70 (103) 169/70 169/70 Pulse Ox 94 O2 Delivery Room Air Intake and Output 12/31/21 12/31/21 01/01/22 14:59 22:59 06:59 Intake Total 0 ml 420 ml 300 ml Balance 0 ml 420 ml 300 ml Justifications for Admission Other Justification NICOLE SMITH MD Jan 01, 2022 09:11
[2022-01-01] MEDS: HYDROcodone/APAP 5/325MG 1 TAB TABLET PO PRN (09:53)
--- NOTE | 2022-01-01 10:00 | NUR ---
SS following up with discharge planning. SS reviewed pt chart and discussed with pt RN. Pt is currently on room air. Discharge order on the chart for home with self care.
--- NOTE | 2022-01-01 10:15 | PDOC ---
Date of Service: DATE: 01/01/22 TIME: 10:12 Subjective: Subjective: Had diarrhea last night. Tolerating w/o vomiting. Objective: Objective: D/w Dr. Hudson - plans to discharge. 1 stool charted. Vital Signs: Vital Signs Date Time Temp Pulse Resp B/P (MAP) Pulse Ox O2 Delivery O2 Flow Rate FiO2 01/01/22 08:56 60 169/70 01/01/22 07:54 Room Air 01/01/22 07:00 97.4 18 94 97.4 Labs: Laboratory Tests Test 01/01/22 06:50 01/01/22 07:30 Sodium Level 145 mmol/L Potassium Level 3.1 mmol/L Chloride Level 107 mmol/L Carbon Dioxide Level 31 mmol/L Anion Gap 7 Blood Urea Nitrogen 13 mg/dL Creatinine 0.6 mg/dL Estimated GFR (Cockcroft-Gault) 101.6 Glucose Level 96 mg/dL Calcium Level 8.6 mg/dL Prothrombin Time 35.8 SEC Prothromb Time International Ratio 3.7 PE: GEN: NAD LUNGS: CTAB HEART: RRR +murm ABD: soft, typical left-sided discomfort (mild/vague) NEURO/PSYCH: A & O 3, lethargic - probably close to baseline A/P: Vomiting/hematemesis - no recurrence Chronic abd pain, h/o GERD and gastroparesis w/ extensive past GI workup H/o A Fib and AVR anti-coagulated w/ Coumadin -- Dc per primary on PPI. Justicifation of Admission Dx: Justifications for Admission: Justification of Admission Dx: Yes ANANT OLIVAREZ Jan 01, 2022 10:15
[2022-01-01 10:58] VITALS: BP 137/94
[2022-01-01] MEDS ORDERED: POTASSIUM CHLORIDE 20 MEQ TABLET.ER. PO ONE ×2 (11:30→13:30)
[2022-01-01] MEDS: QUEtiapine 25 MG TABLET. PO SCH (11:35)
--- NOTE | 2022-01-01 14:31 | NUR ---
Pt left unit at 1430 by wheelchair via cab pass. Pt's IV removed without complication, VSS. Discharge paperwork discussed and sent with pt at time of discharge.
--- NOTE | 2022-01-01 21:13 | PDOC ---
Provider Note Date of Service: DATE: 01/01/22 TIME: 21:13 Provider Note Discharge summary dictated.#[id number]. Justifications for Admission Other Justification NICOLE SMITH MD Jan 01, 2022 21:13
--- NOTE | 2022-01-01 22:06 | DS ---
DATE OF DISCHARGE: 01/01/2022 REASON FOR ADMISSION TO THE HOSPITAL: Vomiting blood, upper GI bleed. CONSULTATIONS: Dr. Baig. PROCEDURES: None. COMPLICATIONS NOTED: None. HOSPITAL COURSE: The patient is a 61-year-old female who has a mechanical aortic valve. The patient is on Coumadin. She was having nausea, vomiting, vomiting blood. She was admitted to the hospital. Luckily, her INR was subtherapeutic, 1.0, even though she was taking Coumadin. The patient had NG tube to suction, some blood-tinged fluid was removed. The patient was given IV Protonix drip, seen by GI. The patient had multiple EGDs in the past. It was decided not to pursue further EGD at this time. Hemoglobin remained stable, did not drop and the patient was given Lovenox and restarted on Coumadin and INR came up nicely to therapeutic range and the patient was tolerating diet. No more upper GI bleed, no more vomiting and the patient was discharged. Electrolytes, low potassium, which was replaced. FINAL DIAGNOSES: 1. Upper gastrointestinal bleed secondary to possible gastritis. 2. Mechanical aortic valve, on Coumadin. 3. Supratherapeutic INR at admission even though the patient is on Coumadin. 4. Had multiple EGDs in the past. 5. Schizophrenia. DISPOSITION: Home. Check INR in 3-4 days. Check potassium in 3-4 days. Continue Protonix. ISAMAR/MELINDA DR: Cynthia TID: [id number]
== END 2022-01-01 14:34 | disposition home or self-care (01) | DRG 379 ==
LOC: ER 13:29 → ED HOLD 17:48 → 5 NORTH 20:10
PROVIDERS: ADMIT Internal Medicine; ATTEND Internal Medicine
DX: K29.71 Gastritis, unspecified, with bleeding (principal); Z79.01 Long term (current) use of anticoagulants; D64.9 Anemia, unspecified; E78.5 Hyperlipidemia, unspecified; F20.9 Schizophrenia, unspecified; F31.9 Bipolar disorder, unspecified; F41.9 Anxiety disorder, unspecified; F44.9 Dissociative and conversion disorder, unspecified; G43.909 Migraine, unspecified, not intractable, without status migrainosus; G47.419 Narcolepsy without cataplexy; I11.0 Hypertensive heart disease with heart failure; I25.10 Atherosclerotic heart disease of native coronary artery without angina pectoris; I48.91 Unspecified atrial fibrillation; I50.9 Heart failure, unspecified; J44.9 Chronic obstructive pulmonary disease, unspecified; K92.0 Hematemesis; R56.9 Unspecified convulsions; R79.1 Abnormal coagulation profile; Z83.3 Family history of diabetes mellitus; Z86.73 Personal history of transient ischemic attack (TIA), and cerebral infarction without residual deficits; Z87.11 Personal history of peptic ulcer disease; Z87.891 Personal history of nicotine dependence; Z90.49 Acquired absence of other specified parts of digestive tract; Z90.710 Acquired absence of both cervix and uterus; Z95.2 Presence of prosthetic heart valve; Z95.5 Presence of coronary angioplasty implant and graft; G89.29 Other chronic pain; K21.9 Gastro-esophageal reflux disease without esophagitis; K57.90 Diverticulosis of intestine, part unspecified, without perforation or abscess without bleeding; Z88.0 Allergy status to penicillin; Z88.2 Allergy status to sulfonamides; Z88.8 Allergy status to other drugs, medicaments and biological substances
CPT/HCPCS: 36415; 74177; 80048; 80053; 81001; 83605; 84484; 85025; 85610; 85730; 86850; 86900; 86901; 93005; 96361; 96365; 96375; C9113; J1200; J1650; J2270; J2405; J2920; J3490; J7030; J7040; J7060; Q9967; 97110-GO; 97116-GP; 99285-25; G0378